=== PATIENT | male | born 1955 ===

== ENCOUNTER 2024-07-30 05:49 | Emergency (ER) | payer MEDICARE, MEDICAID, SELFPAY ==
--- NOTE | 2024-07-30 05:51 | PC.NURSE ---
see paper charting
--- NOTE | 2024-07-30 06:06 | ED.GENADUL1 ---
HPI HPI - General Adult General Stated complaint: G 2 REMOVAL History of Present Illness HPI narrative: 69-year-old male presented for evaluation of his feeding tube. He was sent here by the staff because they thought he had pulled it out partially. He is nonverbal for us and is unable to give any history. The paramedics provided the history. Opioid HPI Opioid Management Most Recent Opioid Data: No Data to Display Review of Systems ROS Narrative Not obtainable, nonverbal Exam Narrative Exam Narrative: Nurses note and vital signs reviewed and patient is not hypoxic. General: The patient appears in no apparent distress. Skin: Warm, dry, no pallor noted. Head: Normocephalic, atraumatic Eye: Normal conjunctiva, no drainage Ears, Nose, Mouth, and Throat: oral mucosa is moist. Nares patent. Cardiovascular: Regular Rate and Rhythm Respiratory: Patient is in no distress, no accessory muscle use, lungs are clear to auscultation, no wheezing, rales or rhonchi Back: non-tender, no CVA tenderness bilaterally to percussion. GI: There is a feeding tube in place. It is not pulled out. There is no surrounding erythema and no bleeding. Removable retainer had been pulled along the length of the tube distally. I have replaced it and the tube is functioning normally. Musculoskeletal: No joint swelling Neurological: Awake. Nonverbal Psychiatric: Cannot be assessed Medical Decision Making MDM Narrative Medical decision making narrative: The removable retainer has been replaced in its appropriate position. The tube was flushed and aspirated with normal functioning. He is able to be released back to ECF. Differential Diagnosis Differential Diagnosis: Feeding tube problem Discharge Plan Discharge Clinical Impression: Complication of feeding tube Patient Disposition: Home, Self-Care Condition: Good Mode of Transportation: EMS Print Language: Tamazight Instructions: How to Use and Care for Your PEG Tube (DC) Discharge Date/Time: 07/30/24 05:51
== END 2024-07-30 05:51 | disposition home or self-care (01) ==
LOC: ER 05:56
PROVIDERS: Emergency Provider Emergency Medicine; PCP Family Medicine
DX: Z43.1 Encounter for attention to gastrostomy (principal)
CPT/HCPCS: 99281

== ENCOUNTER 2024-12-19 10:14 | Outpatient (OUT) | payer MEDICARE, MEDICAID, SELFPAY ==
--- NOTE | 2024-12-19 | XR_ITS ---
The [address] [address] Patient Name: NAPOLEON MEDELLIN MRN: [id number] date: 1955 Sex: M Assigned Patient Location: Current Patient Location: Accession/Order Number: [id number] Exam Date: 12/19/2024 13:54 Report Date: 12/19/2024 13:57 At the request of: MICHEAL LEIVA MD Procedure: XR humerus LT LEFT HUMERUS - 2 views CLINICAL HISTORY: LEFT HUMERUS PAIN. No reported injury. COMPARISON: None AP and lateral views of the left humerus were obtained with patient in wheelchair, limiting evaluation. The elbow is suboptimally seen on the available views. No definite acute fracture is noted in the field of view. No dislocation is seen at the shoulder. There is mild degenerative change at the acromioclavicular joint and greater tuberosity. There are no significant soft tissue abnormalities. XR/XR humerus LT IMPRESSION: LIMITED EVALUATION HOWEVER THOSE PARTS OF THE UPPER ARM THAT ARE INCLUDED ON THE IMAGES SHOW NO ACUTE FINDINGS. MILD DEGENERATIVE CHANGES AT THE SHOULDER. Impression dictated by: Lucita Granda M.D.12/19/2024 1:57 PM Dictation Location: [place] [address] Electronically authenticated by: [id number] Y Date: 12/19/2024 13:57
--- OUTSIDE RECORDS SUMMARY | 2024-12-19 10:30 | XMS_ITS | CCD ---
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 Name Role Phone NO PCP, NO PCP Primary Care Unavailable GOMBASH WIL, XU Attending Unavailab le GOMBASH WIL, XU Attending Unavailab le GOMBASH WIL, XU Referring Unavailab le GARCIA, RAINA J Primary Care Unavailable GOMBASH WIL, XU Attending Unavailab le GOMBASH WIL, XU Referring Unavailab le GARCIA, RAINA J Primary Care Unavailable GOMBASH WIL, XU Attending Unavailab le GOMBASH WIL, XU Referring Unavailab le GARCIA, RAINA J Primary Care Unavailable GOMBASH WIL, XU Attending Unavailab le GOMBASH WLI, XU Referring Unavailab le GARCIA, RAINA J Primary Care Unavailable PROVIDER, UNKNOWN Attending Unavailable PROVIDER, UNKNOWN Admitting Unavailable AHMED, IRFAN Primary Care Unavailable AHMED, IRFAN Referring Unavailable AHMED, IRFAN Referring Unavailable AHMED, IRFAN Primary Care Unavailable Unavailable Primary Care Provider UnavailEliot Hope Attending Unavailable Eliot Murillo Admitting Unavailable NON STAFF Primary Care Unavailable JUMAA, MOUHAMMAD A Admitting Unavailable JUMAA, MOUHAMMAD A Attending Unavailable GOMBASH, XU WIL Referring Unavailab le GARCIA, RAINA J Primary Care Unavailable RON BURKS Consulting Unavailable ALBERTO DIAZ Consulting Unavailable MAGNOLIA CHANG Consulting Unavailable JACQUES HARRIS Consulting Unavailable WILLIAM NAVARRO Consulting Unavailable GRETCHEN ORTEGA Consulting Unavailable MADELINE VELASQUEZ Consulting Unavailable JAYLEN, ART Referring Unavailable GARCIA, RAINA J Primary Care Unavailable JAYLEN ART Referring Unavailable GARCIA, RAINA J Primary Care Unavailable EVERETT JOHNSON Attending UnavailRAINA Aviles Primary Care Unavailable RAINA GARCIA Referring Unavailable RAINA GARCIA Primary Care Unavailable JEANNETTE CHUN Referring Unavailable Unavailable Primary Care Provider Unavailemmett Bermudez APRNSayra DODD Primary Care Provider Jose HENDERSONRaina DODD Primary Care [facility] er JANELL TRIMBLE Attending Unavailable RAINA GARCIA Referring Unavailable JANELL TRIMBLE Attending Unavailable Medications Current Medications Medication Drug Class(es) Dates Sig (Normalized) Sig (Original) acetaminophen 500 mg oral tablet (7 sources) take 1 tablet by mouth every eight hours as needed for pain acetaminophen (TYLENOL EXTRA STRENGTH) 500 mg tablet Take 1 tablet (500 mg total) by mouth every 8 (eight) hours as needed for pain. Active acetaminophen 325 mg / oxyCODONE hydrochloride 5 mg oral tablet (6 sources) Opioid Agonist Start: 09-20-2024 End: 10-20-2024 take 1 tablet by mouth every six hours for pain and pain oxyCODONE-acetamino phen (Percocet) 5-325 MG tablet Indications: Pain Take 1 tablet by mouth every 6 (six) hours 120 tablet 09/20/2024 10/20/2024 Active Start: 08-14-2024 End: 09-13-2024 take 1 tablet by mouth every six hours oxyCODONE-acetaminophen (PERCOCET) 5-325 mg per tablet Take 1 tablet by mouth every 6 (six) hours. Max Daily Amount: 4 tablets 08/14/2024 09/13/2024 albuterol 0.833 mg/ml / ipratropium bromide 0.167 mg/ml inhalation solution (9 sources) Anticholinergic, beta2-Adrenergic Agonist Start: 07-01-2024 take 3 mL by inhalation every six hours as needed for wheezing ipratropium-albuteroL (DUONEB) 0.5 mg-3 mg(2.5 mg base)/3 mL nebulizer Indications: 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 (CMS-HCC) Inhale 3 mL by nebulization every 6 (six) hours as needed for wheezing. 07/01/2024 Active amLODIPine 5 mg oral tablet (9 sources) Dihydropyridine Calcium Channel Varsha Start: 07-02-2024 take 1 tablet by mouth in the morning amLODIPine (NORVASC) 5 mg tablet Take 1 tablet (5 mg total) by mouth in the morning. 07/02/2024 Active aspirin 81 mg delayed release oral tablet (5 sources) Platelet Aggregation Inhibitor, Nonsteroidal Anti-inflammatory Drug Start: 09-07-2024 End: 09-07-2025 take 1 tablet by mouth in the morning aspirin 81 mg Take 1 tablet (81 mg total) by mouth in the morning. 09/07/2024 09/07/2025 Active atorvastatin 40 mg oral tablet (9 sources) HMG-CoA Reductase Inhibitor Start: 07-01-2024 atorvastatin (LIPITOR) 40 mg tablet Administer 1 tablet (40 mg total) per tube nightly. 07/01/2024 Active bacitracin 0.5 unt/mg topical ointment (9 sources) Start: 07-01-2024 bacitracin 500 unit/gram packet Apply 1 Application topically in the morning and 1 Application before bedtime. 07/01/2024 Active busPIRone hydrochloride 5 mg oral tablet (7 sources) take 1 tablet by mouth three times daily busPIRone (BUSPAR) 5 mg tablet Take 1 tablet (5 mg total) by mouth 3 (three) times a day. Active cholecalciferol 0.125 mg oral capsule (9 sources) Vitamin D Start: 07-02-2024 cholecalciferol, vitamin D3, (VITAMIN D3) 5,000 units capsule Administer 1 capsule (5,000 Units total) per tube in the morning. 07/02/2024 Active famotidine 20 mg oral tablet (9 sources) Histamine-2 Receptor Antagonist Start: 07-01-2024 famotidine (PEPCID) 20 mg tablet Administer 1 tablet (20 mg total) per tube in the morning and 1 tablet (20 mg total) before bedtime. 07/01/2024 Active glucagon (rdna) 1 mg injection (9 sources) Antihypoglycemic Agent Start: 07-01-2024 glucagon HCL 1 mg/mL injection Inject 1 mL (1 mg total) into the appropriate muscle as needed for low blood sugar (blood glucose less than 70 mg/dL and unconscious or NPO without IV access.). 07/01/2024 Active 3 ml insulin lispro 100 unt/ml pen injector (18 sources) Insulin Analog Start: 07-01-2024 inject 23 [IU] by subcutaneous injection every four hours insulin lispro (HumaLOG) 100 unit/mL insulin pen Inject 23 Units under the skin every 4 (four) hours. 07/01/2024 Active levETIRAcetam 100 mg/ml oral solution (1 source) take 10 mg by mouth in the morning levETIRAcetam (KEPPRA) 100 mg/mL solution Take 10 mg/kg by mouth in the morning and 10 mg/kg before bedtime. Active LORazepam 0.5 mg oral tablet (7 sources) Benzodiazepine take 1 tablet by mouth every eight hours as needed for anxiety LORazepam (ATIVAN) 0.5 mg tablet Take 1 tablet (0.5 mg total) by mouth every 8 (eight) hours as needed for anxiety. Active losartan potassium 100 mg oral tablet (15 sources) Angiotensin 2 Receptor Varsha Start: 07-02-2024 losartan (COZAAR) 100 mg tablet Administer 1 tablet (100 mg total) per tube in the morning. 07/02/2024 Active take 1 tablet by mouth in the mo rning losartan (COZAAR) 50 mg tablet Take 1 tablet (50 mg total) by mouth in the morning. Suspended melatonin 5 mg oral tablet (9 sources) Start: 07-01-2024 take 1 tablet by mouth once daily melatonin (CIRCADIN) 5 mg tablet Take 1 tablet (5 mg total) by mouth nightly. 07/01/2024 Active metoprolol tartrate 25 mg oral tablet (15 sources) beta-Adrenergic Varsha Start: 07-01-2024 metoprolol tartrate (LOPRESSOR) 25 mg tablet Administer 1 tablet (25 mg total) per tube in the morning and 1 tablet (25 mg total) before bedtime. 07/01/2024 Active take 1 tablet by nithin th every twenty-four hours in the morning metoprolol succinate XL (TOPROL-XL) 50 m g 24 hr tablet Take 1 tablet (50 mg total) by mouth in the morning. Suspended take 1 tablet by mouth once mehdi y metoprolol succinate XL (TOPROL-XL) 50 mg 24 hr tablet Take 50 mg by mouth daily. Active PARoxetine hydrochloride 10 mg oral tablet (6 sources) Serotonin Reuptake Inhibitor Start: 08-20-2024 PARoxetine (PAXIL) 10 mg tablet 08/20/2024 Active polyethylene glycol 3350 47209 mg powder for oral solution (9 sources) Osmotic Laxative Start: 07-02-2024 polyethylene glycol (GLYCOLAX) 17 gram packet Administer 17 g per tube in the morning. 07/02/2024 Active QUEtiapine 25 mg oral tablet (7 sources) Atypical Antipsychotic take 1 tablet by mouth in the morning, then take 1 tablet by mouth at bedtime QUEtiapine (SEROquel) 25 mg tablet Take 1 tablet (25 mg total) by mouth in the morning and 1 tablet (25 mg total) before bedtime. Active risperiDONE 1 mg oral tablet (6 sources) Atypical Antipsychotic Start: 08-22-2024 risperiDONE (RisperDAL) 1 mg tablet 08/22/2024 Active sennosides, long term 1.76 mg/ml oral solution (9 sources) Start: 07-01-2024 sennosides 8.8 mg/5 mL syrup Administer 5 mL (8.8 mg total) per tube nightly. 07/01/2024 Active traZODone hydrochloride 50 mg oral tablet (7 sources) Serotonin Reuptake Inhibitor take 1 tablet by mouth once daily traZODone (DESYREL) 50 mg tablet Take 1 tablet (50 mg total) by mouth nightly. Active valproic acid 50 mg/ml oral solution (6 sources) Mood Stabilizer, Anti-epileptic Agent Start: 08-29-2024 valproate (DEPAKENE) 250 mg/5 mL syrup 08/29/2024 Active Completed/Discontinued Medications Medication Drug Class(es) Dates Sig (Normalized) Sig (Original) metFORMIN hydrochloride 500 mg oral tablet (6 sources) Biguanide take 1 tablet by nithin th in the morning, then take 1 tablet by mouth at bedtime metFORMIN (GLUCOPHAGE) 500 mg tablet Take 1 tablet (500 mg total) by mouth in the morning and 1 tablet (500 mg total) before bedtime. Suspended Problems Active Problems Problem Classification Problem Date Documented Date Episodic/Chronic Acute cerebrovascular disease (20 sources) Cerebral infarction, unspecified; Translations: [Cerebrovascular accident] Onset: 06-06-2024 08-11-2024 Chronic Acute myocardial infarction (10 sources) Myocardial infarction; Translations: [Acute myocardial infarction, unspecified] 06-28-2024 Chronic Attention-deficit, conduct, and disruptive behavior disorders (2 sources) Other symptoms and signs involving appearance and behavior; Translations: [Other symptoms and signs involving appearance and behavior] Onset: 07-19-2024 Episodic Diabetes mellitus without complication (1 source) Type 2 diabetes mellitus without complications; Translations: [Type 2 diabetes mellitus without complications] Onset: 06-06-2024 Chronic Epilepsy; convulsions (2 sources) Unspecified convulsions; Translations: [Neurological finding] Onset: 11-30-2024 11-30-2024 Episodic Late effects of cerebrovascular disease (7 sources) 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; Translations: [Other sequelae following unspecified cerebrovascular disease] Onset: 11-30-2024 12-14-2024 Chronic Malaise and fatigue (1 source) Weakness; Translations: [Weakness] Onset: 11-30-2024 Episodic Nonspecific chest pain (1 source) Chest pain, unspecified; Translations: [Chest pain, unspecified] Onset: 06-06-2024 Episodic Other aftercare (2 sources) Other assisted (current) drug therapy; Translations: [Other assisted (current) drug therapy] Onset: 07-19-2024 Episodic Other and ill-defined cerebrovascular disease (1 source) Other cerebrovascular vasospasm and vasoconstriction; Translations: [Other cerebrovascular vasospasm and vasoconstriction] Onset: 06-06-2024 Chronic Other and ill-defined cerebrovascular disease (2 sources) Cerebrovascular disease; Translations: [Other cerebrovascular vasospasm and vasoconstriction] 09-07-2024 Chronic Other circulatory disease (1 source) History of cerebrovascular accident; Translations: [Personal history of transient ischemic attack (TIA), and cerebral infarction without residual deficits] 09-07-2024 Episodic Other connective tissue disease (1 source) Neurological finding 12-14-2024 Episodic Other nervous system disorders (1 source) Numbness Onset: 06-06-2024 Episodic Other non-epithelial cancer of skin (1 source) Basal cell carcinoma of skin of lip; Translations: [Basal cell carcinoma of skin of lip] Onset: 09-28-2024 Episodic Residual codes; unclassified (2 sources) Altered mental status, unspecified; Translations: [Altered mental status, unspecified] Onset: 07-19-2024 Episodic Residual codes; unclassified (2 sources) Pain; Translations: [Pain, unspecified] 08-14-2024 Episodic Unclassified (1 source) EMS Onset: 06-06-2024 Unclassified (1 source) CVA Onset: 06-06-2024 Past or Other Problems Problem Classification Problem Date Documented Da te Episodic/Chronic Mood disorders (6 sources) Mood disorders Onset: 09-07-2024 Resolved: 11-30-2024 09-07-2024 Other gastrointestinal disorders (1 source) Dysphagia, unspecified; Translations: [Dysphagia, unspecified] Onset: 06-14-2024 Episodic Other gastrointestinal disorders (12 sources) Dysphagia; Translations: [Dysphagia, unspecified] Onset: 06-06-2024 06-14-2024 Episodic Other skin disorders (1 source) Lesion of skin of nose; Translations: [Disorder of the skin and subcutaneous tissue, unspecified] 07-03-2024 Episodic Phlebitis; thrombophlebitis and thromboembolism (15 sources) Acute embolism and thrombosis of unspecified deep veins of distal lower extremity, bilateral; Translations: [Acute deep vein thrombosis of lower limb] Onset: 06-23-2024 06-23-2024 Episodic Unclassified (1 source) 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 ([facility]) 09-07-2024 Results Test Name Value Interpretation Reference Range Facility Glucose Poct Glucometerson 1 11-29-2023 Commemt1 Glu2: Cleaned Meter Normal [facility] Comment on above: Result Comment: PERF ORMED BY: [facility] [address] [place] [address] PATHOLOGIST RECYCLING TECHNICIAN NISA FUNK M.D. Performed By: #### G LULS #### Point of Care testing , Glucose [Mass/Vol] 224 mg/dL Normal [facility] Comment on above: Result Comment: [facility] Glucose Reference Range is dependent on time and content of last meal. Glucose of more than 200 mg/dL in a nonstressed, ambulatory subject supports the diagnosis of Diabetes Mellitus. Performed By: #### G LULS #### Point of Care testing , Lipid Profileon 07-20-2024 Cholesterol [Mass/Vol] 154 mg/dL Normal 0-199 [facility] Comment on above: Result Comment: Cholesterol Guidelines: <200 Desirable 200-240 Borderline >240 Undesirable Performed By: #### L IPR #### [address] [address] Junior Network Administrator: Adonis Trujillo MD Cholesterol in HDL [Mass/Vol] 44 mg/dL Normal >40 [facility] Comment on above: Result Comment: HDL Guidelines: <40 Undesirable 40-59 Borderline >59 Desirable Performed By: #### L IPR #### [facility] [address] [place] [id number] Junior Network Administrator: Adonis Trujillo MD Cholesterol in LDL [Mass/Vol] 86 mg/dL Normal 0-100 [facility] Comment on above: Result Comment: LDL Guidelines: <100 Desirable 100-129 Near to/above Desirable 130-159 Borderline >159 Undesirable Direct (measured) LDL and calculated LDL are not interchangeable tests. Performed By: #### L IPR #### [address] [address] Junior Network Administrator: Adonis Trujillo MD Cholesterol in VLDL [Mass/Vol] 25 mg/dL Normal [facility] Comment on above: Performed By: #### L IPR #### [address] [address] Junior Network Administrator: Adonis Trujillo MD Cholesterol.total/C holesterol in HDL [Mass ratio] 4.0 {ratio} Normal [facility] Comment on above: Performed By: #### L IPR #### [facility] [address] [place] [address] Junior Network Administrator: Adonis Trujillo MD Triglyceride [Mass/Vol] 125 mg/dL Normal <150 [facility] Comment on above: Result Comment: Triglyceride Guidelines: <150 Desirable 150-199 Borderline 200-499 High >499 Very high Based on AHA Guidelines for fasting triglyceride, July 2012. Performed By: #### L IPR #### [address] [address] Junior Network Administrator: Adonis Trujillo MD Basic Metabolic Profon 07-19 Anion gap [Moles/Vol] 11 mmol/L Normal 9-16 [facility] Comment on above: Performed By: #### C BC, BMP #### [facility] [address] [place] [address] Junior Network Administrator: Adonis Loo MD BUN/CRE Ratio 29 High 9-20 [facility] Comment on above: Performed By: #### C BC, BMP #### [facility] [address] [place], [place] [phone] Junior Network Administrator: Adonis Loo MD Calcium [Mass/Vol] 9.8 mg/dL Normal 8.6-10.4 [facility] Comment on above: Performed By: #### C BC, BMP #### [facility] [address] [place], [place] [id number] Junior Network Administrator: Adonis Loo MD Chloride [Moles/Vol] 100 mmol/L Normal 98-107 [facility] Comment on above: Performed By: #### C BC, BMP #### [facility] [address] [place], [place] [id number] Junior Network Administrator: Adonis Loo MD CO2 [Moles/Vol] 27 mmol/L Normal 20-31 [facility] Comment on above: Performed By: #### C BC, BMP #### [facility] [address] [place] [address] Junior Network Administrator: Adonis Loo MD Creatinine [Mass/Vol] 0.7 mg/dL Normal 0.70-1.20 [facility] Comment on above: Performed By: #### C BC, BMP #### [facility] [address] [place] [address] Junior Network Administrator: Adonis Loo MD GFR/1.73 sq M.predicted among non-blacks MDRD (S/P/Bld) [Vol rate/Area] mL/min/{1.73_m2} Normal >60 [facility] Comment on above: Result Comment: These results are not intended for use in patients <18 years of age. eGFR results are calculated without a race factor using the 2020 CKD-EPI equation. Careful clinical correlation is recommended, particularly when comparing to results calculated using previous equations. The CKD-EPI equation is less accurate in patients with extremes of muscle mass, extra-renal metabolism of creatine, excessive creatine ingestion, or following therapy that affects renal tubular secretion. Performed By: #### C BC, BMP #### [facility] [address] [place], [place] [phone] Junior Network Administrator: Adonis Loo MD Glucose [Mass/Vol] 264 mg/dL High 74-99 [facility] Comment on above: Performed By: #### C CORIE, BMP #### [facility] [address] [place], [place] [id number] Junior Network Administrator: Adonis Loo MD Potassium [Moles/Vol] 4.4 mmol/L Normal 3.7-5.3 [facility] Comment on above: Performed By: #### C BC, BMP #### [address] [place] [address] Junior Network Administrator: Adonis Loo MD Sodium [Moles/Vol] 138 mmol/L Normal 136-145 [facility] Comment on above: Performed By: #### C BC, BMP #### [address] [place] [address] Junior Network Administrator: Adonis Loo MD Urea nitrogen [Mass/Vol] 20 mg/dL Normal 8-23 [facility] Comment on above: Performed By: #### C BC, BMP #### [facility] [address] [place], [place] [phone] Junior Network Administrator: Adonis Loo MD CBCon 07-19-2024 Erythrocyte distribution width (RBC) [Ratio] 14.6 % High 11.8-14.4 [facility] Comment on above: Performed By: #### C BC, BMP #### [address] [place], [place] [phone] Junior Network Administrator: Adonis Loo MD Hematocrit (Bld) [Volume fraction] 40.9 % Normal 40.7-50.3 [facility] Comment on above: Performed By: #### C BC, BMP #### [address] [place], [place] [phone] Junior Network Administrator: Adonis Loo MD Hemoglobin (Bld) [Mass/Vol] 13.8 g/dL Normal 13.0-17.0 [facility] Comment on above: Performed By: #### C BC, BMP #### [address] [place] [address] Junior Network Administrator: Adonis Loo MD MCH (RBC) [Entitic mass] 31.4 pg Normal 25.2-33.5 [facility] Comment on above: Performed By: #### C BC, BMP #### [address] [place] [address] Junior Network Administrator: Adonis Loo MD MCHC (RBC) [Mass/Vol] 33.7 g/dL Normal 28.4-34.8 [facility] Comment on above: Performed By: #### C BC, BMP #### [address] [place] [address] Junior Network Administrator: Adonis Loo MD MCV (RBC) [Entitic vol] 93.2 fL Normal 82.6-102.9 [facility] Comment on above: Performed By: #### C BC, BMP #### [address] [place] [address] Junior Network Administrator: Adonis Loo MD NRBC Automated 0.0 per 100 WBC Normal 0.0 [facility] Comment on above: Performed By: #### C BC, BMP #### [address] [place] [address] Junior Network Administrator: Adonis Loo MD Platelet mean volume (Bld) [Entitic vol] 9.3 fL Normal 8.1-13.5 [facility] Comment on above: Performed By: #### C BC, BMP #### [facility] [address] [place], [place] [id number] Junior Network Administrator: Adonis Loo MD Platelets (Bld) [#/Vol] 212 10*3/uL Normal 138-453 [facility] Comment on above: Performed By: #### C BC, BMP #### [facility] [address] [place], [place] [id number] Junior Network Administrator: Adonis Loo MD RBC (Bld) [#/Vol] 4.39 10*6/uL Normal 4.21-5.77 [facility] Comment on above: Performed By: #### Ivon FONTENOT, BMP #### [facility] [address] [place], [place] [phone] Junior Network Administrator: Adonis Loo MD WBC (Bld) [#/Vol] 8.0 10*3/uL Normal 3.5-11.3 [facility] Comment on above: Performed By: #### C CORIE, BMP #### [facility] [address] [place], [place] [id number] Junior Network Administrator: Adonis Loo MD BASIC METABOLIC PANLon 07-01 Anion gap [Moles/Vol] 8 mmol/L Normal 5-15 [facility] Comment on above: Performed By: #### C BCA, BMP ####[facility] [place] [facility] ([id number])[address] [address] Calcium [Mass/Vol] 9.2 mg/dL Normal 8.5-10.5 [facility] Comment on above: Performed By: #### C BCA, BMP ####[facility] [place] [facility] ([id number])[address], [place] [address] Chloride [Moles/Vol] 103 mmol/L Normal 98-109 [facility] Comment on above: Performed By: #### C BCA, BMP ####[facility] ([id number])[address] [address], [place] [address] CO2 [Moles/Vol] 26 mmol/L Normal 22-32 [facility] Comment on above: Performed By: #### C BCA, BMP ####[facility] ([id number] [address] [place] [address] Creatinine [Mass/Vol] 0.57 mg/dL Low 0.60-1.30 [facility] Comment on above: Result Comment: METH OD TRACEABLE TO IDMS STANDARD Performed By: #### C ENZO, BMP ####[facility] ([id number])[address] [address] [place] [address] eGFR (CKD-EPI) NON-RACE DEPENDENT >90 Normal >59 [facility] Comment on above: Result Comment: Repo rted eGFR is based on theCKD-EPI 2020 equation that doesnot use a race coefficient. Performed By: #### C BCA, BMP ####[facility] [place] [facility] ([id number])[address] [address] [place] [address], [place] [address] Glucose [Mass/Vol] 100 mg/dL High 65-99 [facility] Comment on above: Performed By: #### C BCA, BMP ####[facility] [place] [facility] ([id number])[address] [address], [place] [address] Potassium [Moles/Vol] 4.1 mmol/L Normal 3.5-5.0 [facility] Comment on above: Performed By: #### C BCA, BMP ####[facility] [place] [facility] ([id number])[address] [address] [place] [address] Sodium [Moles/Vol] 137 mmol/L Normal 134-146 [facility] Comment on above: Performed By: #### C BCA, BMP ####[facility] [place] [facility] ([id number])[address] [address] Urea nitrogen [Mass/Vol] 34 mg/dL High 5-27 [facility] Comment on above: Performed By: #### C ENZO, BMP ####[facility] [place] [facility] ([id number])[address] [address] CBC AND AUTO DIFFon 07-01-20 ABSOLUTE BASOPHIL 0.0 X10E9/L Normal 0.0-0.2 [facility] Comment on above: Performed By: #### C ENZO, BMP ####[facility] [place] [facility] ([id number])[address] [address] ABSOLUTE NEUTROPHIL 7.4 X10E9/L High 1.5-6.6 [facility] Comment on above: Performed By: #### C ENZO, BMP ####[facility] [place] [facility] ([id number])0 [address] [address] Basophils/100 WBC (Bld) 0.4 % Normal [facility] Comment on above: Performed By: #### C ENZO, BMP ####[facility] ([id number])[address] [address] Eosinophils (Bld) [#/Vol] 0.2 10*3/uL Normal 0.0-0.4 [facility] Comment on above: Performed By: #### C ENZO, BMP ####[facility] ([id number])[address] [address] Eosinophils/100 WBC (Bld) 1.6 % Normal [facility] Comment on above: Performed By: #### C ENZO, BMP ####[facility] ([id number])[address] [address] Erythrocyte distribution width (RBC) [Ratio] 16.0 % High 11.5-15.0 [facility] Comment on above: Performed By: #### C BCA, BMP ####[facility] ([id number])[address], [place] [address] Hematocrit (Bld) [Volume fraction] 40.4 % Normal 39-49 [facility] Comment on above: Performed By: #### C BCA, BMP ####[facility] ([id number])[address] [address], [place] [address] Hemoglobin (Bld) [Mass/Vol] 13.7 g/dL Normal 13.0-17.0 [facility] Comment on above: Performed By: #### C BCA, BMP ####[facility] ([id number])[address] [address] [place] [address] Lymphocytes (Bld) [#/Vol] 1.9 10*3/uL Normal 1.0-3.5 [facility] Comment on above: Performed By: #### C BCA, BMP ####[facility] ([id number])[address] [address] [place] [address] Lymphocytes/100 WBC (Bld) 18.7 % Normal [facility] Comment on above: Performed By: #### C BCA, BMP ####[facility] ([id number])[address] [address], [place] [address] MCH (RBC) [Entitic mass] 31.4 pg Normal 27-34 [facility] Comment on above: Performed By: #### C BCA, BMP ####[facility] ([id number])[address] [address] [place] [address] MCHC (RBC) [Mass/Vol] 33.9 g/dL Normal 32-36 [facility] Comment on above: Performed By: #### C BCA, BMP ####[facility] ([id number])[address] [address] MCV (RBC) [Entitic vol] 93 fL Normal 80-100 [facility] Comment on above: Performed By: #### C BCA, BMP ####[facility] ([id number])[address] [address] Monocytes (Bld) [#/Vol] 0.6 10*3/uL Normal 0-0.9 [facility] Comment on above: Performed By: #### C ENZO, BMP ####[facility] ([id number])[address], [place] [address] Monocytes/100 WBC (Bld) 6.0 % Normal [facility] Comment on above: Performed By: #### C ENZO, BMP ####[facility] ([id number])[address], [place] [address] Neutrophils/100 WBC (Bld) 73.3 % Normal [facility] Comment on above: Performed By: #### C ENZO, BMP ####[facility] ([id number])[address], [place] [address] Platelet mean volume (Bld) [Entitic vol] 7.6 fL Normal 7-12 [facility] Comment on above: Performed By: #### C ENZO, BMP ####[facility] ([id number])[address] [address], [place] [address] Platelets (Bld) [#/Vol] 192 10*3/uL Normal 150-450 [facility] Comment on above: Performed By: #### C ENZO, BMP ####[facility] ([id number])[address] [address] RBC COUNT 4.36 X10E12/L Normal 4.10-5.70 [facility] Comment on above: Performed By: #### C BCA, BMP ####[facility] ([id number])[address], [place] [address] WBC (Bld) [#/Vol] 10.1 10*3/uL Normal 4.0-11.0 [facility] Comment on above: Performed By: #### C BCA, BMP ####[facility] ([id number])[address], [place] [address] Glucose Glucometer (BldC) [M ass/Vol]on 07-01-2024 Glucose [Mass/Vol] 143 mg/dL High 65-99 [facility] Glucose [Mass/Vol] 163 mg/dL High 65-99 [facility] Glucose [Mass/Vol] 105 mg/dL High 65-99 [facility] Glucose [Mass/Vol] 164 mg/dL High 65-99 [facility] BASIC METABOLIC PANLon 06-30 Anion gap [Moles/Vol] 10 mmol/L Normal 5-15 [facility] Comment on above: Performed By: #### C BCA, BMP ####[facility] ([id number])[address], [place] [address] Calcium [Mass/Vol] 9.4 mg/dL Normal 8.5-10.5 [facility] Comment on above: Performed By: #### C BCA, BMP ####[facility] ([id number])[address], [place] [address] Chloride [Moles/Vol] 103 mmol/L Normal 98-109 [facility] Comment on above: Performed By: #### C BCA, BMP ####[facility] ([id number])[address], [place] [address] CO2 [Moles/Vol] 25 mmol/L Normal 22-32 [facility] Comment on above: Performed By: #### C BCA, BMP ####[facility] ([id number])[address] [address] [place] [address] Creatinine [Mass/Vol] 0.59 mg/dL Low 0.60-1.30 [facility] Comment on above: Result Comment: METH OD TRACEABLE TO IDMS STANDARD Performed By: #### C ENZO, BMP ####[facility] ([id number])[address] [address], [place] [address] eGFR (CKD-EPI) NON-RACE DEPENDENT >90 Normal >59 [facility] Comment on above: Result Comment: Repo rted eGFR is based on theCKD-EPI 2020 equation that doesnot use a race coefficient. Performed By: #### C ENZO, BMP ####[facility] ([id number])[address] [address] [place] [address] Glucose [Mass/Vol] 126 mg/dL High 65-99 [facility] Comment on above: Performed By: #### C ENZO, BMP ####[facility] ([id number])[address] [address] [place] [address] Potassium [Moles/Vol] 4.0 mmol/L Normal 3.5-5.0 [facility] Comment on above: Performed By: #### C ENZO, BMP ####[facility] ([id number])[address] [address] Sodium [Moles/Vol] 138 mmol/L Normal 134-146 [facility] Comment on above: Performed By: #### C BCA, BMP ####[facility] ([id number])[address] [address] Urea nitrogen [Mass/Vol] 34 mg/dL High 5-27 [facility] Comment on above: Performed By: #### C BCA, BMP ####[facility] ([id number])[address] [address] CBC AND AUTO DIFFon 09-19-20 24 ABSOLUTE BASOPHIL 0.1 X10E9/L Normal 0.0-0.2 [facility] Comment on above: Performed By: #### C ENZO, BMP ####[facility] ([id number])[address], [place] [address] ABSOLUTE NEUTROPHIL 8.9 X10E9/L High 1.5-6.6 [facility] Comment on above: Performed By: #### C BCA, BMP ####[facility] ([id number])[address] [address], [place] [address] Basophils/100 WBC (Bld) 0.5 % Normal [facility] Comment on above: Performed By: #### C ENZO, BMP ####[facility] ([id number])[address] [address], [place] [address] Eosinophils (Bld) [#/Vol] 0.1 10*3/uL Normal 0.0-0.4 [facility] Comment on above: Performed By: #### C BCA, BMP ####[facility] ([id number])[address] [address] Eosinophils/100 WBC (Bld) 1.1 % Normal [facility] Comment on above: Performed By: #### C BCA, BMP ####[facility] ([id number])[address] [address], [place] [address] Erythrocyte distribution width (RBC) [Ratio] 16.0 % High 11.5-15.0 [facility] Comment on above: Performed By: #### C BCA, BMP ####[facility] ([id number])[address] [address] Hematocrit (Bld) [Volume fraction] 42.2 % Normal 39-49 [facility] Comment on above: Performed By: #### C BCA, BMP ####[facility] ([id number])[address] [address] Hemoglobin (Bld) [Mass/Vol] 14.0 g/dL Normal 13.0-17.0 [facility] Comment on above: Performed By: #### C BCA, BMP ####[facility] ([id number])[address] [address] Lymphocytes (Bld) [#/Vol] 2.1 10*3/uL Normal 1.0-3.5 [facility] Comment on above: Performed By: #### C BCA, BMP ####[facility] ([id number])[address] [address] Lymphocytes/100 WBC (Bld) 17.6 % Normal [facility] Comment on above: Performed By: #### C BCA, BMP ####[facility] ([id number])[address] [address] MCH (RBC) [Entitic mass] 30.8 pg Normal 27-34 [facility] Comment on above: Performed By: #### C BCA, BMP ####[facility] ([id number])[address] [address] MCHC (RBC) [Mass/Vol] 33.2 g/dL Normal 32-36 [facility] Comment on above: Performed By: #### C BCA, BMP ####[facility] ([id number])[address] [address] MCV (RBC) [Entitic vol] 93 fL Normal 80-100 [facility] Comment on above: Performed By: #### C BCA, BMP ####[facility] ([id number])[address] [address] Monocytes (Bld) [#/Vol] 0.7 10*3/uL Normal 0-0.9 [facility] Comment on above: Performed By: #### C BCA, BMP ####[facility] ([id number])[address], [place] [address] Monocytes/100 WBC (Bld) 6.2 % Normal [facility] Comment on above: Performed By: #### C BCA, BMP ####[facility] ([id number])[address], [place] [address] Neutrophils/100 WBC (Bld) 74.6 % Normal [facility] Comment on above: Performed By: #### C ENZO, BMP ####[facility] ([id number])[address], [place] [address] Platelet mean volume (Bld) [Entitic vol] 7.8 fL Normal 7-12 [facility] Comment on above: Performed By: #### C ENZO, BMP ####[facility] ([id number])[address], [place] [address] Platelets (Bld) [#/Vol] 195 10*3/uL Normal 150-450 [facility] Comment on above: Performed By: #### C ENZO, BMP ####[facility] ([id number])[address], [place] [address] RBC COUNT 4.55 X10E12/L Normal 4.10-5.70 [facility] Comment on above: Performed By: #### C BCA, BMP ####[facility] ([id number])[address], [place] [address] WBC (Bld) [#/Vol] 11.9 10*3/uL High 4.0-11.0 [facility] Comment on above: Performed By: #### C BCA, BMP ####[facility] ([id number])[address], [place] [address] Glucose Glucometer (BldC) [M ass/Vol]on 06-30-2024 Glucose [Mass/Vol] 189 mg/dL High 65-99 [facility] Glucose [Mass/Vol] 89 mg/dL Normal 65-99 [facility] Glucose [Mass/Vol] 110 mg/dL High 65-99 [facility] Glucose [Mass/Vol] 119 mg/dL High 65-99 [facility] Glucose [Mass/Vol] 108 mg/dL High 65-99 [facility] Glucose [Mass/Vol] 134 mg/dL High 65-99 [facility] Magnesium Ionized ISE (Bld) [Moles/Vol]on 06-30-2024 Magnesium [Moles/Vol] 0.55 mmol/L Normal 0.45-0.74 [facility] Comment on above: Result Comment: NEW REFERENCE RANGE Performed By: #### 7 [id number] ####[facility] ([id number])[address] [place] [address] PHOSPHORUSon 06-30-2024 Phosphate [Mass/Vol] 3.9 mg/dL Normal 2.4-4.9 [facility] Comment on above: Performed By: #### 2 777-1 ####[facility] ([id number])[address] [place] [address] XR ABDOMEN AP 1 VWon 024 XR ABDOMEN AP 1 VW Normal [facility] BASIC METABOLIC PANLon 06-29 Anion gap [Moles/Vol] 10 mmol/L Normal 5-15 [facility] Comment on above: Performed By: #### C BCA, BMP ####[facility] ([id number])[address], [place] [address] Calcium [Mass/Vol] 9.3 mg/dL Normal 8.5-10.5 [facility] Comment on above: Performed By: #### C BCA, BMP ####[facility] ([id number])[address], [place] [address] Chloride [Moles/Vol] 104 mmol/L Normal 98-109 [facility] Comment on above: Performed By: #### C ENZO, BMP ####[facility] ([id number])[address], [place] [address] CO2 [Moles/Vol] 25 mmol/L Normal 22-32 [facility] Comment on above: Performed By: #### C ENZO, BMP ####[facility] ([id number])[address] [address] [place] [address] Creatinine [Mass/Vol] 0.56 mg/dL Low 0.60-1.30 [facility] Comment on above: Result Comment: METH OD TRACEABLE TO IDMS STANDARD Performed By: #### C ENZO, BMP ####[facility] ([id number])[address] [address] [place] [address], [place] [address] eGFR (CKD-EPI) NON-RACE DEPENDENT >90 Normal >59 [facility] Comment on above: Result Comment: Repo rted eGFR is based on theCKD-EPI 2020 equation that doesnot use a race coefficient. Performed By: #### C ENZO, BMP ####[facility] ([id number])[address] [address], [place] [address] Glucose [Mass/Vol] 96 mg/dL Normal 65-99 [facility] Comment on above: Performed By: #### C BCA, BMP ####[facility] ([id number])[address] [address], [place] [address] Potassium [Moles/Vol] 4.0 mmol/L Normal 3.5-5.0 [facility] Comment on above: Performed By: #### C BCA, BMP ####[facility] ([id number])[address] [address] [place] [address], [place] [address] Sodium [Moles/Vol] 139 mmol/L Normal 134-146 [facility] Comment on above: Performed By: #### C BCA, BMP ####[facility] ([id number])[address] [place] [address] Urea nitrogen [Mass/Vol] 33 mg/dL High 5-27 [facility] Comment on above: Performed By: #### C BCA, BMP ####[facility] ([id number])[address] [place] [address] CBC AND AUTO DIFFon 06-29-20 24 ABSOLUTE BASOPHIL 0.0 X10E9/L Normal 0.0-0.2 [facility] Comment on above: Performed By: #### C BCA, BMP ####[facility] ([id number])[address] [place] [address] ABSOLUTE NEUTROPHIL 9.5 X10E9/L High 1.5-6.6 [facility] Comment on above: Performed By: #### C BCA, BMP ####[facility] ([id number])[address] [address] [place] [address] Basophils/100 WBC (Bld) 0.3 % Normal [facility] Comment on above: Performed By: #### C BCA, BMP ####[facility] ([id number])[address] [address], [place] [address] Eosinophils (Bld) [#/Vol] 0.1 10*3/uL Normal 0.0-0.4 [facility] Comment on above: Performed By: #### C BCA, BMP ####[facility] ([id number])[address] [address] [place] [address] Eosinophils/100 WBC (Bld) 0.7 % Normal [facility] Comment on above: Performed By: #### C BCA, BMP ####[facility] ([id number])[address], [place] [address] Erythrocyte distribution width (RBC) [Ratio] 15.8 % High 11.5-15.0 [facility] Comment on above: Performed By: #### C ENZO, BMP ####[facility] ([id number])[address], [place] [address] Hematocrit (Bld) [Volume fraction] 40.4 % Normal 39-49 [facility] Comment on above: Performed By: #### C ENZO, BMP ####[facility] ([id number])[address] [address] Hemoglobin (Bld) [Mass/Vol] 13.5 g/dL Normal 13.0-17.0 [facility] Comment on above: Performed By: #### C ENZO, BMP ####[facility] ([id number])[address] [address] Lymphocytes (Bld) [#/Vol] 2.2 10*3/uL Normal 1.0-3.5 [facility] Comment on above: Performed By: #### C ENZO, BMP ####[facility] ([id number])[address] [address] Lymphocytes/100 WBC (Bld) 17.3 % Normal [facility] Comment on above: Performed By: #### Ivon GIRALDO, BMP ####[facility] ([id number])[address] [address] MCH (RBC) [Entitic mass] 30.9 pg Normal 27-34 [facility] Comment on above: Performed By: #### C ENZO, BMP ####[facility] ([id number])[address], [place] [address] MCHC (RBC) [Mass/Vol] 33.4 g/dL Normal 32-36 [facility] Comment on above: Performed By: #### C ENZO, BMP ####[facility] ([id number])[address], [place] [address] MCV (RBC) [Entitic vol] 93 fL Normal 80-100 [facility] Comment on above: Performed By: #### C BCA, BMP ####[facility] ([id number])[address], [place] [address] Monocytes (Bld) [#/Vol] 0.7 10*3/uL Normal 0-0.9 [facility] Comment on above: Performed By: #### C ENZO, BMP ####[facility] ([id number])[address], [place] [address] Monocytes/100 WBC (Bld) 5.9 % Normal [facility] Comment on above: Performed By: #### C ENZO, BMP ####[facility] ([id number])[address], [place] [address] Neutrophils/100 WBC (Bld) 75.8 % Normal [facility] Comment on above: Performed By: #### C ENZO, BMP ####[facility] ([id number])[address], [place] [address] Platelet mean volume (Bld) [Entitic vol] 7.9 fL Normal 7-12 [facility] Comment on above: Performed By: #### C BCA, BMP ####[facility] ([id number])[address], [place] [address] Platelets (Bld) [#/Vol] 200 10*3/uL Normal 150-450 [facility] Comment on above: Performed By: #### C BCA, BMP ####[facility] ([id number])[address], [place] [address] RBC COUNT 4.37 X10E12/L Normal 4.10-5.70 [facility] Comment on above: Performed By: #### C ENZO, BMP ####[facility] ([id number])[address] [place] [address] WBC (Bld) [#/Vol] 12.5 10*3/uL High 4.0-11.0 [facility] Comment on above: Performed By: #### C ENZO, BMP ####[facility] ([id number])[address] [place] [address] Glucose Glucometer (BldC) [M ass/Vol]on 06-29-2024 Glucose [Mass/Vol] 123 mg/dL High 65-99 [facility] Glucose [Mass/Vol] 119 mg/dL High 65-99 [facility] Glucose [Mass/Vol] 131 mg/dL High 65-99 [facility] Glucose [Mass/Vol] 155 mg/dL High 65-99 [facility] Glucose [Mass/Vol] 190 mg/dL High 65-99 [facility] Glucose [Mass/Vol] 116 mg/dL High 65-99 [facility] Glucose [Mass/Vol] 112 mg/dL High 65-99 [facility] Glucose [Mass/Vol] 144 mg/dL High 65-99 [facility] Glucose [Mass/Vol] 137 mg/dL High 65-99 [facility] URINALYSISon 06-29-2024 Bilirubin Ql (U) Negative Normal NEG [facility] Comment on above: Performed By: #### U A ####[facility] ([id number])[address] [place] [address] BLOOD/HGB Negative Normal NEG [facility] Comment on above: Performed By: #### U A ####[facility] ([id number])[address], [place] [address] Color (U) YELLOW Normal YELLOW [facility] Comment on above: Performed By: #### U A ####[facility] ([id number])[address] [address] Glucose Ql (U) 70 mg/dL Abnormal NEG [facility] Comment on above: Performed By: #### U A ####[facility] ([id number])[address] [address], [place] [address] Ketones Ql (U) Negative Normal NEG [facility] Comment on above: Performed By: #### U A ####[facility] ([id number])[address], [place] [address] Leukocyte esterase Test strip Ql (U) Negative Normal NEG [facility] Comment on above: Performed By: #### U A ####[facility] ([id number])[address] [address], [place] [address] Nitrite Ql (U) Negative Normal NEG [facility] Comment on above: Performed By: #### U A ####[facility] ([id number])[address] [address], [place] [address] pH (U) 5.0 [pH] Normal 5.0-8.5 [facility] Comment on above: Performed By: #### U A ####[facility] ([id number])[address] [address], [place] [address] Protein Ql (U) Negative Normal NEG [facility] Comment on above: Performed By: #### U A ####[facility] ([id number])[address] [address] [address] Specific gravity (U) [Rel density] 1.022 Normal 1.003-1.035 [facility] Comment on above: Performed By: #### U A ####[facility] ([id number])[address] [address], [place] [address] TURBIDITY CLEAR Normal CLEAR [facility] Comment on above: Performed By: #### U A ####[facility] ([id number])[address], [place] [address] Urinalysis dipstick W Reflex Microscopic panel (U) URINE RECEIVED WITHOUT PRESERVATIVE-DELAYS IN TRANSPORT MAY AFFECT RESULTS.INTERPRET WITH CAUTION AND CLINICAL CORRELATION IS RECOMMENDED. Normal [facility] Comment on above: Performed By: #### U A ####[facility] ([id number])[address], [address] [place] [address] Urobilinogen (U) [Mass/Vol] mg/dL Normal <1.1 [facility] Comment on above: Performed By: #### U A ####[facility] ([id number])[address] [address] [place] [address] XR CHEST 1 VWon 06-29-2024 XR CHEST 1 VW Normal [facility] BASIC METABOLIC PANLon 06-28 Anion gap [Moles/Vol] 8 mmol/L Normal 5-15 [facility] Comment on above: Performed By: #### C BCA, BMP ####[facility] ([id number])[address] [address], [place] [address] Calcium [Mass/Vol] 9.2 mg/dL Normal 8.5-10.5 [facility] Comment on above: Performed By: #### C BCA, BMP ####[facility] ([id number])[address] [address] [place] [address], [place] [address] Chloride [Moles/Vol] 105 mmol/L Normal 98-109 [facility] Comment on above: Performed By: #### C BCA, BMP ####[facility] ([id number])[address] [address], [place] [address] CO2 [Moles/Vol] 26 mmol/L Normal 22-32 [facility] Comment on above: Performed By: #### C BCA, BMP ####[facility] ([id number])[address] [address] Creatinine [Mass/Vol] 0.56 mg/dL Low 0.60-1.30 [facility] Comment on above: Result Comment: METH OD TRACEABLE TO IDMS STANDARD Performed By: #### C BCA, BMP ####[facility] ([id number])[address] [address] eGFR (CKD-EPI) NON-RACE DEPENDENT >90 Normal >59 [facility] Comment on above: Result Comment: Repo rted eGFR is based on theCKD-EPI 2020 equation that doesnot use a race coefficient. Performed By: #### C BCA, BMP ####[facility] ([id number])[address] [address] Glucose [Mass/Vol] 99 mg/dL Normal 65-99 [facility] Comment on above: Performed By: #### C BCA, BMP ####[facility] ([id number])[address] [address] Potassium [Moles/Vol] 4.0 mmol/L Normal 3.5-5.0 [facility] Comment on above: Performed By: #### C BCA, BMP ####[facility] ([id number])[address] [address] Sodium [Moles/Vol] 139 mmol/L Normal 134-146 [facility] Comment on above: Performed By: #### C BCA, BMP ####[facility] ([id number])[address] [address] Urea nitrogen [Mass/Vol] 33 mg/dL High 5-27 [facility] Comment on above: Performed By: #### C BCA, BMP ####[facility] ([id number])[address], [place] [address] CBC AND AUTO DIFFon 06-28-20 24 ABSOLUTE BASOPHIL 0.1 X10E9/L Normal 0.0-0.2 [facility] [facility] Comment on above: Performed By: #### C ENZO, BMP ####[facility] ([id number])[address], [address] [address] ABSOLUTE NEUTROPHIL 9.1 X10E9/L High 1.5-6.6 [facility] Comment on above: Performed By: #### C ENZO, BMP ####[facility] ([id number])[address], [place] [address] Basophils/100 WBC (Bld) 0.5 % Normal [facility] Comment on above: Performed By: #### C ENZO, BMP ####[facility] ([id number])[address], [address], [place] [address] Eosinophils (Bld) [#/Vol] 0.1 10*3/uL Normal 0.0-0.4 [facility] Comment on above: Performed By: #### C ENZO, BMP ####[facility] ([id number])[address] [address], [place] [address] Eosinophils/100 WBC (Bld) 0.9 % Normal [facility] Comment on above: Performed By: #### C ENZO, BMP ####[facility] ([id number])[address], [address], [place] [address] Erythrocyte distribution width (RBC) [Ratio] 15.6 % High 11.5-15.0 [facility] Comment on above: Performed By: #### C ENZO, BMP ####[facility] ([id number])[address], [address] [address] Hematocrit (Bld) [Volume fraction] 39.2 % Normal 39-49 [facility] Comment on above: Performed By: #### C BCA, BMP ####[facility] ([id number])[address] [address] [place] [address] Hemoglobin (Bld) [Mass/Vol] 12.9 g/dL Low 13.0-17.0 [facility] Comment on above: Performed By: #### C BCA, BMP ####[facility] ([id number])[address] [address] [place] [address] Lymphocytes (Bld) [#/Vol] 1.6 10*3/uL Normal 1.0-3.5 [facility] Comment on above: Performed By: #### C BCA, BMP ####[facility] ([id number])[address] [address] [place] [address] Lymphocytes/100 WBC (Bld) 13.6 % Normal [facility] Comment on above: Performed By: #### C BCA, BMP ####[facility] ([id number])[address] [address] MCH (RBC) [Entitic mass] 30.6 pg Normal 27-34 [facility] Comment on above: Performed By: #### C BCA, BMP ####[facility] ([id number])[address] [address] [place] [address] MCHC (RBC) [Mass/Vol] 33.0 g/dL Normal 32-36 [facility] Comment on above: Performed By: #### C BCA, BMP ####[facility] ([id number])[address] [address] [place] [address] MCV (RBC) [Entitic vol] 93 fL Normal 80-100 [facility] Comment on above: Performed By: #### C BCA, BMP ####[facility] ([id number])[address] [address] Monocytes (Bld) [#/Vol] 0.7 10*3/uL Normal 0-0.9 [facility] Comment on above: Performed By: #### C ENZO, BMP ####[facility] ([id number])[address] [address] Monocytes/100 WBC (Bld) 5.9 % Normal [facility] Comment on above: Performed By: #### C ENZO, BMP ####[facility] ([id number])[address], [place] [address] Neutrophils/100 WBC (Bld) 79.1 % Normal [facility] Comment on above: Performed By: #### C ENZO, BMP ####[facility] ([id number])[address], [address], [place] [address] Platelet mean volume (Bld) [Entitic vol] 8.0 fL Normal 7-12 [facility] Comment on above: Performed By: #### C ENZO, BMP ####[facility] ([id number])[address] [address] Platelets (Bld) [#/Vol] 186 10*3/uL Normal 150-450 [facility] Comment on above: Performed By: #### C ENZO, BMP ####[facility] ([id number])[address] [address] RBC COUNT 4.22 X10E12/L Normal 4.10-5.70 [facility] Comment on above: Performed By: #### C ENZO, BMP ####[facility] ([id number])[address] [address] [address] WBC (Bld) [#/Vol] 11.5 10*3/uL High 4.0-11.0 [facility] Comment on above: Performed By: #### C ENZO, BMP ####[facility] ([id number])[address], [place] [address] FL SWALLOW MOTILITY FUNCTION on 06-28-2024 FL SWALLOW MOTILITY FUNCTION Normal [facility] Glucose Glucometer (BldC) [M ass/Vol]on 06-28-2024 Glucose [Mass/Vol] 133 mg/dL High 65-99 [facility] Glucose [Mass/Vol] 139 mg/dL High 65-99 [facility] Glucose [Mass/Vol] 173 mg/dL High 65-99 [facility] Glucose [Mass/Vol] 106 mg/dL High 65-99 [facility] Glucose [Mass/Vol] 210 mg/dL High 65-99 [facility] Glucose [Mass/Vol] 88 mg/dL Normal 65-99 [facility] BASIC METABOLIC PANLon 06-27 Anion gap [Moles/Vol] 8 mmol/L Normal 5-15 [facility] Comment on above: Performed By: #### C BCA, BMP ####[facility] ([id number])[address] [address] Calcium [Mass/Vol] 9.1 mg/dL Normal 8.5-10.5 [facility] Comment on above: Performed By: #### Ivon BCA, BMP ####[facility] ([id number])[address], [place] [address] Chloride [Moles/Vol] 107 mmol/L Normal 98-109 [facility] Comment on above: Performed By: #### C BCA, BMP ####[facility] ([id number])[address], [place] [address] CO2 [Moles/Vol] 25 mmol/L Normal 22-32 [facility] Comment on above: Performed By: #### C BCA, BMP ####[facility] ([id number])[address], [place] [address] Creatinine [Mass/Vol] 0.63 mg/dL Normal 0.60-1.30 [facility] Comment on above: Result Comment: METH OD TRACEABLE TO IDMS STANDARD Performed By: #### C ENZO, BMP ####[facility] ([id number])[address] [address], [place] [address] eGFR (CKD-EPI) NON-RACE DEPENDENT >90 Normal >59 [facility] Comment on above: Result Comment: Repo rted eGFR is based on theCKD-EPI 2020 equation that doesnot use a race coefficient. Performed By: #### C ENZO, BMP ####[facility] ([id number])[address] [address] Glucose [Mass/Vol] 150 mg/dL High 65-99 [facility] Comment on above: Performed By: #### C ENZO, BMP ####[facility] ([id number])[address] [address] [place] [address] Potassium [Moles/Vol] 3.9 mmol/L Normal 3.5-5.0 [facility] Comment on above: Performed By: #### C ENZO, BMP ####[facility] ([id number])[address] [address] Sodium [Moles/Vol] 140 mmol/L Normal 134-146 [facility] Comment on above: Performed By: #### C ENZO, BMP ####[facility] ([id number])[address] [address] Urea nitrogen [Mass/Vol] 36 mg/dL High 5-27 [facility] Comment on above: Performed By: #### C BCA, BMP ####[facility] ([id number])[address] [address] CBC AND AUTO DIFFon 06-27-20 24 ABSOLUTE BASOPHIL 0.0 X10E9/L Normal 0.0-0.2 [facility] Comment on above: Performed By: #### C BCA, BMP ####[facility] ([id number])[address] [address] [place] [address] ABSOLUTE NEUTROPHIL 9.3 X10E9/L High 1.5-6.6 [facility] Comment on above: Performed By: #### C BCA, BMP ####[facility] ([id number])[address] [address] [place] [address] Basophils/100 WBC (Bld) 0.2 % Normal [facility] Comment on above: Performed By: #### C BCA, BMP ####[facility] ([id number])[address] [address] [place] [address] Eosinophils (Bld) [#/Vol] 0.1 10*3/uL Normal 0.0-0.4 [facility] Comment on above: Performed By: #### C BCA, BMP ####[facility] ([id number])[address] [address] Eosinophils/100 WBC (Bld) 0.7 % Normal [facility] Comment on above: Performed By: #### C BCA, BMP ####[facility] ([id number])[address] [address] Erythrocyte distribution width (RBC) [Ratio] 16.0 % High 11.5-15.0 [facility] Comment on above: Performed By: #### C BCA, BMP ####[facility] ([id number])[address] [address] Hematocrit (Bld) [Volume fraction] 37.8 % Low 39-49 [facility] Comment on above: Performed By: #### C BCA, BMP ####[facility] ([id number])[address] [address] Hemoglobin (Bld) [Mass/Vol] 12.6 g/dL Low 13.0-17.0 [facility] Comment on above: Performed By: #### C ENZO, BMP ####[facility] ([id number])[address] [place] [address] Lymphocytes (Bld) [#/Vol] 1.6 10*3/uL Normal 1.0-3.5 [facility] Comment on above: Performed By: #### C ENZO, BMP ####[facility] ([id number])[address] [address] Lymphocytes/100 WBC (Bld) 13.6 % Normal [facility] Comment on above: Performed By: #### C ENZO, BMP ####[facility] ([id number])[address] [address] MCH (RBC) [Entitic mass] 31.0 pg Normal 27-34 [facility] Comment on above: Performed By: #### C ENZO, BMP ####[facility] ([id number])[address], [place] [address] MCHC (RBC) [Mass/Vol] 33.3 g/dL Normal 32-36 [facility] Comment on above: Performed By: #### C ENZO, BMP ####[facility] ([id number])[address] [address] MCV (RBC) [Entitic vol] 93 fL Normal 80-100 [facility] Comment on above: Performed By: #### C ENZO, BMP ####[facility] ([id number])[address] [address] Monocytes (Bld) [#/Vol] 0.8 10*3/uL Normal 0-0.9 [facility] Comment on above: Performed By: #### C ENZO, BMP ####[facility] [place] ([id number])[address], [place] [address] Monocytes/100 WBC (Bld) 6.5 % Normal [facility] Comment on above: Performed By: #### C ENZO, BMP ####[facility] ([id number])[address], [place] [address] Neutrophils/100 WBC (Bld) 79.0 % Normal [facility] Comment on above: Performed By: #### C ENZO, BMP ####[facility] [place] [facility] ([id number])[address], [place] [address] Platelet mean volume (Bld) [Entitic vol] 8.4 fL Normal 7-12 [facility] Comment on above: Performed By: #### C ENZO, BMP ####[facility] [place] [facility] ([id number])[address], [place] [address] Platelets (Bld) [#/Vol] 195 10*3/uL Normal 150-450 [facility] Comment on above: Performed By: #### C ENZO, BMP ####[facility] [place] [facility] ([id number])[address], [place] [address] RBC COUNT 4.06 X10E12/L Low 4.10-5.70 [facility] Comment on above: Performed By: #### C ENZO, BMP ####[facility] [place] [facility] ([id number])[address], [place] [address] WBC (Bld) [#/Vol] 11.8 10*3/uL High 4.0-11.0 [facility] Comment on above: Performed By: #### C ENZO, BMP ####[facility] [place] ([id number])[address], [place] [address] Glucose Glucometer (BldC) [M ass/Vol]on 06-27-2024 Glucose [Mass/Vol] 126 mg/dL High 65-99 [facility] Glucose [Mass/Vol] 147 mg/dL High 65-99 [facility] Glucose [Mass/Vol] 165 mg/dL High 65-99 [facility] Glucose [Mass/Vol] 157 mg/dL High 65-99 [facility] Glucose [Mass/Vol] 115 mg/dL High 65-99 [facility] Glucose [Mass/Vol] 147 mg/dL High 65-99 [facility] ARTERIAL BLOOD GASon 024 KALEB'S TEST Pass Normal [facility] Comment on above: Performed By: #### A BG ####[facility] ([id number])[address] [place] [address] BASE,DEFICIT 1.0 MMOL/L Normal 0.0-2.0 [facility] Comment on above: Performed By: #### A BG ####[facility] ([id number])[address] [place] [address] Body temperature 98.6 [degF] Normal 37.0 [facility] Comment on above: Performed By: #### A BG ####[facility] ([id number])[address] [place] [address] HCO3 (Bld) [Moles/Vol] 23.2 mmol/L Normal 22-26 [facility] Comment on above: Performed By: #### A BG ####[facility] ([address] [place] [address])[address] [place] [address] INSP. O2 CONC. 44 % Normal [facility] Comment on above: Performed By: #### A BG ####[facility] ([id number])[address] [place] [address] Oxygen (Bld) [Partial pressure] 98 mm[Hg] Normal 80-100 [facility] Comment on above: Performed By: #### A BG ####[facility] ([id number])[address] [place] [address] Oxygen saturation in Blood 98.0 % Normal >90 [facility] Comment on above: Performed By: #### A BG ####[facility] ([id number])[address] [place] [address] OXYGEN SOURCE [place] [facility] Comment on above: Performed By: #### A BG ####[facility] ([id number])[address] [place] [address] PCO2 35.4 MMHG Normal 35-45 [facility] Comment on above: Performed By: #### A BG ####[facility] ([id number])[address] [place] [address] pH (Bld) 7.425 [pH] Normal 7.350-7.450 [facility] Comment on above: Performed By: #### A BG ####[facility] ([id number])[address] [place] [address] SAMPLE SITE LRad [facility] Comment on above: Performed By: #### A BG ####[facility] ([id number])[address] [place] [address] SAMPLE TYPE ARTERIAL Normal [facility] Comment on above: Performed By: #### A BG ####[facility] ([id number])[address] [place] [address] BASIC METABOLIC PANLon 06-26 Anion gap [Moles/Vol] 10 mmol/L Normal 5-15 [facility] Comment on above: Performed By: #### C BCA, BMP ####[facility] ([id number])[address] [facility] [address], [place] [address] Calcium [Mass/Vol] 9.3 mg/dL Normal 8.5-10.5 [facility] Comment on above: Performed By: #### C BCA, BMP ####[facility] [place] ([id number])[address], [place] [address] Chloride [Moles/Vol] 106 mmol/L Normal 98-109 [facility] Comment on above: Performed By: #### C BCA, BMP ####[facility] [place] ([id number])[address], [place] [address] CO2 [Moles/Vol] 21 mmol/L Low 22-32 [facility] Comment on above: Performed By: #### C BCA, BMP ####[facility] ([id number])[address], [place] [address] Creatinine [Mass/Vol] 0.72 mg/dL Normal 0.60-1.30 [facility] Comment on above: Result Comment: METH OD TRACEABLE TO IDMS STANDARD Performed By: #### C BCA, BMP ####[facility] ([id number])[address] [address] [place] [address] eGFR (CKD-EPI) NON-RACE DEPENDENT >90 Normal >59 [facility] Comment on above: Result Comment: Repo rted eGFR is based on theCKD-EPI 2020 equation that doesnot use a race coefficient. Performed By: #### C BCA, BMP ####[facility] ([id number])[address] [address], [place] [address] Glucose [Mass/Vol] 194 mg/dL High 65-99 [facility] Comment on above: Performed By: #### C BCA, BMP ####[facility] ([id number])[address] [address], [place] [address] Potassium [Moles/Vol] 4.1 mmol/L Normal 3.5-5.0 [facility] Comment on above: Performed By: #### C BCA, BMP ####[facility] ([id number])[address] [address], [place] [address] Sodium [Moles/Vol] 137 mmol/L Normal 134-146 [facility] Comment on above: Performed By: #### C BCA, BMP ####[facility] ([id number])[address], [place] [address] Urea nitrogen [Mass/Vol] 34 mg/dL High 5-27 [facility] Comment on above: Performed By: #### C ENZO, BMP ####[facility] ([id number])[address] [address] [place] [address] BLOOD CULTUREon 06-26-2024 Bacteria identified Aer cx Nom (Bld) SPECIMEN NOTES SUBOPTIMAL VOLUME OF BLOOD COLLECTED, RESULTS MAY BE AFFECTED. CULTURE RESULTS NO GROWTH 5 DAYS Normal [facility] Comment on above: Performed By: #### 1 7928-3 ####[facility] ([id number])[address] [address], [place] [address] CBC AND AUTO DIFFon 06-26-20 ABSOLUTE BASOPHIL 0.1 X10E9/L Normal 0.0-0.2 [facility] Comment on above: Performed By: #### C ENZO, BMP ####[facility] ([id number])[address] [address], [place] [address] ABSOLUTE NEUTROPHIL 9.8 X10E9/L High 1.5-6.6 [facility] Comment on above: Performed By: #### C ENZO, BMP ####[facility] ([id number])[address] [address] Basophils/100 WBC (Bld) 0.6 % Normal [facility] Comment on above: Performed By: #### C ENZO, BMP ####[facility] [place] ([id number])[address] [address], [place] [address] Eosinophils (Bld) [#/Vol] 0.0 10*3/uL Normal 0.0-0.4 [facility] Comment on above: Performed By: #### C ENZO, BMP ####[facility] [place] [facility] ([id number])[address], [place] [address] Eosinophils/100 WBC (Bld) 0.2 % Normal [facility] Comment on above: Performed By: #### C ENZO, BMP ####[facility] [place] [facility] ([id number])[address] [address] Erythrocyte distribution width (RBC) [Ratio] 15.6 % High 11.5-15.0 [facility] Comment on above: Performed By: #### C ENZO, BMP ####[facility] [place] [facility] ([id number])[address] [address] Hematocrit (Bld) [Volume fraction] 38.9 % Low 39-49 [facility] Comment on above: Performed By: #### C ENZO, BMP ####[facility] [place] [facility] ([id number])[address] [address] Hemoglobin (Bld) [Mass/Vol] 12.8 g/dL Low 13.0-17.0 [facility] Comment on above: Performed By: #### C ENZO, BMP ####[facility] [place] [facility] ([id number])[address] [address] [address] Lymphocytes (Bld) [#/Vol] 1.4 10*3/uL Normal 1.0-3.5 [facility] Comment on above: Performed By: #### C ENZO, BMP ####[facility] [place] [facility] ([id number])[address] [address] [address] Lymphocytes/100 WBC (Bld) 11.9 % Normal [facility] Comment on above: Performed By: #### C ENZO, BMP ####[facility] [place] [facility] ([id number])[address], [place] [address] MCH (RBC) [Entitic mass] 30.4 pg Normal 27-34 [facility] Comment on above: Performed By: #### C BCA, BMP ####[facility] [place] [facility] ([id number])[address] [address] MCHC (RBC) [Mass/Vol] 32.8 g/dL Normal 32-36 [facility] Comment on above: Performed By: #### C ENZO, BMP ####[facility] [place] [facility] ([id number])[address], [place] [address] MCV (RBC) [Entitic vol] 93 fL Normal 80-100 [facility] Comment on above: Performed By: #### C ENZO, BMP ####[facility] [place] [facility] ([id number])[address], [place] [address] Monocytes (Bld) [#/Vol] 0.6 10*3/uL Normal 0-0.9 [facility] Comment on above: Performed By: #### C ENZO, BMP ####[facility] [place] [facility] ([id number])[address], [place] [address] Monocytes/100 WBC (Bld) 5.2 % Normal [facility] Comment on above: Performed By: #### C ENZO, BMP ####[facility] [place] [facility] ([id number])[address], [place] [address] Neutrophils/100 WBC (Bld) 82.1 % Normal [facility] Comment on above: Performed By: #### C ENZO, BMP ####[facility] [place] [facility] ([id number])[address] [address] Platelet mean volume (Bld) [Entitic vol] 8.7 fL Normal 7-12 [facility] Comment on above: Performed By: #### C BCA, BMP ####[facility] ([id number])[address] [place] [address] Platelets (Bld) [#/Vol] 210 10*3/uL Normal 150-450 [facility] Comment on above: Performed By: #### C BCA, BMP ####[facility] [facility] ([id number])[address], [place] [address] RBC COUNT 4.20 X10E12/L Normal 4.10-5.70 [facility] Comment on above: Performed By: #### C ENZO, BMP ####[facility] [place] [facility] ([id number])[address] [place] [address] WBC (Bld) [#/Vol] 12.0 10*3/uL High 4.0-11.0 [facility] Comment on above: Performed By: #### C ENZO, BMP ####[facility] ([id number])[address], [place] [address] CONT[address] BRAIN WO CONT Normal [facility] Glucose Glucometer (dC) [M ass/Vol]on 06-26-2024 Glucose [Mass/Vol] 167 mg/dL High 65-99 [facility] Glucose [Mass/Vol] 214 mg/dL High 65-99 [facility] Glucose [Mass/Vol] 162 mg/dL High 65-99 [facility] Glucose [Mass/Vol] 188 mg/dL High 65-99 [facility] Glucose [Mass/Vol] 150 mg/dL High 65-99 [facility] Glucose [Mass/Vol] 184 mg/dL High 65-99 [facility] AMMONIAon 06-25-2024 Ammonia (P) [Moles/Vol] 46 umol/L Normal 18-72 [facility] Comment on above: Result Comment: NEW REFERENCE RANGE Performed By: #### 1 6362-6, 04095-2, LIVR, 2157-6, 85030-0, 2284-8, 2132-9, 00905-5 ####[facility] [place] [facility] ([id number])[address], [place] [address] BASIC METABOLIC PANLon 06-25 Anion gap [Moles/Vol] 8 mmol/L Normal 5-15 [facility] Comment on above: Performed By: #### C BCA BMP, 93418-8 ####[facility] ([id number])[address], [address] [place] [address], [place] [address] Calcium [Mass/Vol] 9.2 mg/dL Normal 8.5-10.5 [facility] Comment on above: Performed By: #### C BCA, BMP, 03348-4 ####[facility] ([id number])[address], [address] [place] [address], [place] [address] Chloride [Moles/Vol] 107 mmol/L Normal 98-109 [facility] Comment on above: Performed By: #### C BCA, BMP, 81990-8 ####[facility] ([id number])[address] [address] [place] [address], [place] [address] CO2 [Moles/Vol] 23 mmol/L Normal 22-32 [facility] Comment on above: Performed By: #### C BCA, BMP, 14349-6 ####[facility] ([id number])[address] [address] [place] [address], [place] [address] Creatinine [Mass/Vol] 0.72 mg/dL Normal 0.60-1.30 [facility] Comment on above: Result Comment: METH OD TRACEABLE TO IDMS STANDARD Performed By: #### C BCA, BMP, 32453-5 ####[facility] ([id number])[address], [address] [place] [address], [place] [address] eGFR (CKD-EPI) NON-RACE DEPENDENT >90 Normal >59 [facility] Comment on above: Result Comment: Repo rted eGFR is based on theD-EPI 2020 equation that doesnot use a race coefficient. Performed By: #### C TK GIRALDO, 31672-2 ####[facility] ([id number])[address], [place] [address] Glucose [Mass/Vol] 193 mg/dL High 65-99 [facility] Comment on above: Performed By: #### C TK GIRALDO, 09947-0 ####[facility] ([id number])[address] [address], [place] [address] Potassium [Moles/Vol] 4.2 mmol/L Normal 3.5-5.0 [facility] Comment on above: Performed By: #### TK Del Valle BCA, 94904-3 ####[facility] ([id number])[address] [address] Sodium [Moles/Vol] 138 mmol/L Normal 134-146 [facility] Comment on above: Performed By: #### TK Del Valle BCA, 51879-8 ####[facility] ([id number])[address] [address], [place] [address] Urea nitrogen [Mass/Vol] 34 mg/dL High 5-27 [facility] Comment on above: Performed By: #### TK Del Valle BCA, 67055-2 ####[facility] ([id number])[address] [address], [place] [address] CBC AND AUTO DIFFon 06-25-20 24 ABSOLUTE BASOPHIL 0.0 X10E9/L Normal 0.0-0.2 [facility] Comment on above: Performed By: #### TK Del Valle BCA, 79643-4 ####[facility] LAB ([id number])[address] [address] [address] ABSOLUTE NEUTROPHIL 8.6 X10E9/L High 1.5-6.6 [facility] Comment on above: Performed By: #### TK Del Valle BCA, 98339-8 ####[facility] [place] [facility] ([id number])[address], [place] [address] Basophils/100 WBC (Bld) 0.2 % Normal [facility] Comment on above: Performed By: #### TK Del Valle BCA, 77669-7 ####[facility] [place] ([id number])[address] [address] [address] Eosinophils (Bld) [#/Vol] 0.0 10*3/uL Normal 0.0-0.4 [facility] Comment on above: Performed By: #### TK Del Valle BCA, 07917-2 ####[facility] [place] [facility] ([id number])[address] [address], [place] [address] Eosinophils/100 WBC (Bld) 0.4 % Normal [facility] Comment on above: Performed By: #### TK Del Valle BCA, 52938-0 ####[facility] [place] [facility] ([id number])[address] [address], [place] [address] Erythrocyte distribution width (RBC) [Ratio] 16.0 % High 11.5-15.0 [facility] Comment on above: Performed By: #### TK Del Valle BCA, 22245-9 ####[facility] [place] [facility] ([id number])[address] [address], [place] [address] Hematocrit (Bld) [Volume fraction] 38.6 % Low 39-49 [facility] Comment on above: Performed By: #### TK Del Valle BCA, 90547-1 ####[facility] [place] [facility] ([id number])[address] [address], [place] [address] Hemoglobin (Bld) [Mass/Vol] 12.8 g/dL Low 13.0-17.0 [facility] Comment on above: Performed By: #### TK Del Valle BCA, 47846-7 ####[facility] [place] [facility] ([id number])[address], [address] [place] [address] Lymphocytes (Bld) [#/Vol] 1.3 10*3/uL Normal 1.0-3.5 [facility] Comment on above: Performed By: #### TK Del Valle BCA, 61004-3 ####[facility] [place] [facility] ([id number])[address], [address], [place] [address] Lymphocytes/100 WBC (Bld) 12.1 % Normal [facility] Comment on above: Performed By: #### TK Del Valle BCA, 31905-4 ####[facility] [place] [facility] ([id number])[address], [address], [place] [address] MCH (RBC) [Entitic mass] 30.8 pg Normal 27-34 [facility] Comment on above: Performed By: #### TK Del Valle BCA, 96827-6 ####[facility] [place] [facility] ([id number])[address], [address], [place] [address] MCHC (RBC) [Mass/Vol] 33.1 g/dL Normal 32-36 [facility] Comment on above: Performed By: #### TK Del Valle BCA, 56621-6 ####[facility] [place] [facility] ([id number])[address] [address] MCV (RBC) [Entitic vol] 93 fL Normal 80-100 [facility] Comment on above: Performed By: #### TK Del Valle BCA, 86800-8 ####[facility] [place] [facility] ([id number])[address], [address], [place] [address] Monocytes (Bld) [#/Vol] 0.5 10*3/uL Normal 0-0.9 [facility] Comment on above: Performed By: #### C ENZO, BMP, 96229-9 ####[facility] [place] ([id number])[address] [place] [address] Monocytes/100 WBC (Bld) 5.1 % Normal [facility] Comment on above: Performed By: #### Ivon GIRALDO, BMP, 18075-3 ####[facility] [place] [facility] ([id number])[address] [place] [address] Neutrophils/100 WBC (Bld) 82.2 % Normal [facility] Comment on above: Performed By: #### Ivon GIRALDO, BMP, 07114-7 ####[facility] [place] [facility] ([id number])[address] [place] [address] Platelet mean volume (Bld) [Entitic vol] 8.5 fL Normal 7-12 [facility] Comment on above: Performed By: #### Ivon GIRALDO, BMP, 22026-1 ####[facility] [place] [facility] ([id number])[address], [address] [address] Platelets (Bld) [#/Vol] 197 10*3/uL Normal 150-450 [facility] Comment on above: Performed By: #### Ivon GIRALDO, BMP, 70416-5 ####[facility] [place] [facility] ([id number])[address], [address], [place] [address] RBC COUNT 4.14 X10E12/L Normal 4.10-5.70 [facility] Comment on above: Performed By: #### Ivon GIRALDO, BMP, 02241-1 ####[facility] [place] [facility] ([id number])[address], [address], [place] [address] WBC (Bld) [#/Vol] 10.4 10*3/uL Normal 4.0-11.0 [facility] Comment on above: Performed By: #### Ivon GIRALDO, BMP, 20469-3 ####[facility] [place] [facility] ([id number])[address] [facility], [place] [address] CK [Catalytic activity/Vol]o n 06-25-2024 CPK 84 U/L Normal 24-195 [facility] Comment on above: Performed By: #### 1 6362-6, 85300-8, LIVR, 2157-6, 08278-6, 8, 2132-06, 07641-8 ####[facility] [place] [facility] ([id number])[address] [facility], [address] [place] [address] Folate [Mass/Vol]on 06-25-20 FOLIC ACID 11.6 ng/mL Normal >5.8 [facility] Comment on above: Result Comment: NEW REFERENCE RANGE Performed By: #### 1 6362-6, 54514-5, LIVR, 7-6, 40852-1, 8, 2132-06, 16143-3 ####[facility] [place] [facility] ([id number])[address] [facility], [address] [place] [address] Glucose Glucometer (BldC) [M ass/Vol]on 06-25-2024 Glucose [Mass/Vol] 166 mg/dL High 65-99 [facility] Glucose [Mass/Vol] 189 mg/dL High 65-99 [facility] Glucose [Mass/Vol] 171 mg/dL High 65-99 [facility] Glucose [Mass/Vol] 238 mg/dL High 65-99 [facility] Glucose [Mass/Vol] 188 mg/dL High 65-99 [facility] Glucose [Mass/Vol] 201 mg/dL High 65-99 [facility] LIVER PANELon 06-25-2024 Albumin [Mass/Vol] 3.3 g/dL Normal 3.2-5.3 [facility] Comment on above: Performed By: #### 1 6362-6, 80986-2, LIVR, 7-6, 31959-0, 8, 2132-06, 53711-3 ####[facility] [place] [facility] ([id number])[address], [address], [place] [address] ALP [Catalytic activity/Vol] 44 U/L Normal 39-130 [facility] Comment on above: Performed By: #### 1 6362-6, 95595-6, LIVR, 2157-6, 20887-2, 2284-8, 2131-9, 22907-4 ####[facility] [place] [facility] ([id number])[address], [address], [place] [address] ALT [Catalytic activity/Vol] 20 U/L Normal 0-40 [facility] Comment on above: Performed By: #### 1 6362-6, 43056-1, LIVR, 2157-6, 55022-0, 4-8, 9, 29235-2 ####[facility] [place] [facility] ([id number])[address], [address], [place] [address] AST [Catalytic activity/Vol] 27 U/L Normal 0-41 [facility] Comment on above: Performed By: #### 1 6362-6, 95250-8, LIVR, 2157-6, 08071-5, 4-8, 9, 04283-4 ####[facility] [place] [facility] ([id number])[address], [address], [place] [address] Bilirubin [Mass/Vol] 1.0 mg/dL Normal 0.3-1.2 [facility] Comment on above: Performed By: #### 1 6362-6, 26204-1, LIVR, 2157-6, 02319-2, 2284-8, 2131-9, 30865-4 ####[facility] [place] [facility] ([id number])[address], [address], [place] [address] Bilirubin.direct [Mass/Vol] 0.2 mg/dL Normal 0.0-0.4 [facility] Comment on above: Performed By: #### 1 6362-6, 07263-1, LIVR, 2157-6, 28010-0, 2284-8, 2131-9, 89554-7 ####[facility] [place] [facility] ([id number])[address], [address] [address] Protein [Mass/Vol] 6.4 g/dL Normal 6.0-8.0 [facility] Comment on above: Performed By: #### 1 6362-6, 83742-7, LIVR, 2157-6, 38108-6, 2284-8, 2131-9, 14616-1 ####[facility] [place] ([id number])[address], [address] [address] Lactate (P chauncey) [Moles/Vol]o n 06-25-2024 LACTATE W/REFLEX 1.1 mmol/L Normal 0.4-2.0 [facility] Comment on above: Result Comment: Resu lt did not trigger repeat Lactate,re-order if needed. Performed By: #### 1 6362-6, 64558-8, LIVR, 2157-6, 55670-9, 2283-8, 9, 12744-5 ####[facility] [place] [facility] ([id number])[address] [address] Procalcitonin IA [Mass/Vol]o n 06-25-2024 PROCALCITONIN 0.87 ng/mL High <0.05 [facility] Comment on above: Result Comment: NOTE <0.50 ng/mL - Low risk of severe sepsis and/or septic shock.<2.00 ng/mL - Recommend retesting within 6-24 hours.>2.00 ng/mL - High risk of sepsis and/or septic shock. Performed By: #### 1 6362-6, 83354-6, LIVR, 2157-6, 61983-3, 2284-8, 2131-9, 99420-5 ####[facility] [place] [facility] ([id number])[address], [place] [address] Troponin I.cardiac High sens itivity method [Mass/Vol]on 06-25-2024 3 HOUR TROP I, HIGH SENSITIVITY 12 ng/L Normal <21 [facility] Comment on above: Performed By: #### C BCA, BMP, 89498-5 ####[facility] [place] [facility] ([id number])[address], [address], [place] [address] VITAMIN B12on 06-25-2024 Cobalamin (Vitamin B12) [Mass/Vol] 269 pg/mL Normal 180-914 [facility] Comment on above: Performed By: #### 1 6362-6, 50159-1, LIVR, 2157-03, 63273-7, 2283-8, 2132-06, 85103-7 ####[facility] [place] ([id number])[address], [address] [place] [address] Vitamin D+Metabolites [Mass/ Vol]on 06-25-2024 VITAMIN D 25 HYD TOT 17.8 ng/mL Low 30-100 [facility] Comment on above: Result Comment: Katherine min D status 25 [place] Vitamin D Deficiency <20 ng/mLInsufficiency 20-29 ng/mLSufficiency 30-100 ng/mLToxicity >100 ng/mLNOTE: A pediatric reference range has not beenestablished by the fitting room attendant of this kit.The [place] [employer] recommendsa Vitamin D level of = or >20ng/mL in infantsand children. Performed By: #### 1 6362-6, 48588-8, LIVR, 6, 21870-5, 2283-8, 9, 30316-7 ####[facility] [place] [facility] ([id number])[address], [address], [place] [address] XR CHEST 1 VWon 06-25-2024 XR CHEST 1 VW Normal [facility] BASIC METABOLIC PANLon 06-24 Anion gap [Moles/Vol] 11 mmol/L Normal 5-15 [facility] Comment on above: Performed By: #### C BCA, BMP ####[facility] [place] [facility] ([id number])[address], [address], [place] [address] Calcium [Mass/Vol] 9.4 mg/dL Normal 8.5-10.5 [facility] Comment on above: Performed By: #### C BCA, BMP ####[facility] [place] [facility] ([id number])[address], [address] [place] [address] Chloride [Moles/Vol] 106 mmol/L Normal 98-109 [facility] Comment on above: Performed By: #### C BCA, BMP ####[facility] [place] [facility] ([id number])[address], [address], [place] [address] CO2 [Moles/Vol] 22 mmol/L Normal 22-32 [facility] Comment on above: Performed By: #### C BCA, BMP ####[facility] [place] ([id number])[address] [address], [place] [address] Creatinine [Mass/Vol] 0.96 mg/dL Normal 0.60-1.30 [facility] Comment on above: Result Comment: METH OD TRACEABLE TO IDMS STANDARD Performed By: #### C BCA, BMP ####[facility] [place] [facility] ([id number])[address] [address], [place] [address] GFR/1.73 sq M.predicted among non-blacks MDRD (S/P/Bld) [Vol rate/Area] 87 mL/min/{1.73_m2} Normal >59 [facility] Comment on above: Result Comment: Repo rted eGFR is based on theCKD-EPI 2020 equation that doesnot use a race coefficient. Performed By: #### C BCA, BMP ####[facility] [place] ([id number])[address], [address] [place] [address] Glucose [Mass/Vol] 242 mg/dL High 65-99 [facility] Comment on above: Performed By: #### C ENZO, BMP ####[facility] [place] ([id number])[address], [address] [place] [address] Potassium [Moles/Vol] 4.1 mmol/L Normal 3.5-5.0 [facility] Comment on above: Performed By: #### C ENZO, BMP ####[facility] [place] [facility] ([id number])[address], [address] [address] Sodium [Moles/Vol] 139 mmol/L Normal 134-146 [facility] Comment on above: Performed By: #### C ENZO, BMP ####[facility] [place] [facility] ([id number])[address], [address] [address] Urea nitrogen [Mass/Vol] 41 mg/dL High 5-27 [facility] Comment on above: Performed By: #### C ENZO, BMP ####[facility] [place] [facility] ([id number])[address], [address] [address] CBC AND AUTO DIFFon 06-24-20 24 ABSOLUTE BASOPHIL 0.0 X10E9/L Normal 0.0-0.2 [facility] Comment on above: Performed By: #### C ENZO, BMP ####[facility] [place] [facility] ([id number])[address], [address], [place] [address] ABSOLUTE NEUTROPHIL 13.5 X10E9/L High 1.5-6.6 [facility] Comment on above: Performed By: #### C BCA, BMP ####[facility] [place] [facility] ([id number])[address], [address] [address] Basophils/100 WBC (Bld) 0.2 % Normal [facility] Comment on above: Performed By: #### C ENZO, BMP ####[facility] [place] [facility] ([id number])[address] [address] Eosinophils (Bld) [#/Vol] 0.0 10*3/uL Normal 0.0-0.4 [facility] Comment on above: Performed By: #### C ENZO, BMP ####[facility] [place] [facility] ([id number])[address] [address] Eosinophils/100 WBC (Bld) 0.2 % Normal [facility] Comment on above: Performed By: #### C ENZO, BMP ####[facility] [place] [facility] ([id number])[address] [address] Erythrocyte distribution width (RBC) [Ratio] 16.0 % High 11.5-15.0 [facility] Comment on above: Performed By: #### C ENZO, BMP ####[facility] [place] [facility] ([id number])[address] [address] Hematocrit (Bld) [Volume fraction] 40.0 % Normal 39-49 [facility] Comment on above: Performed By: #### C ENZO, BMP ####[facility] [place] [facility] ([id number])[address] [address] Hemoglobin (Bld) [Mass/Vol] 13.1 g/dL Normal 13.0-17.0 [facility] Comment on above: Performed By: #### C BCA, BMP ####[facility] [place] [facility] ([id number])[address] [address] Lymphocytes (Bld) [#/Vol] 1.5 10*3/uL Normal 1.0-3.5 [facility] Comment on above: Performed By: #### C ENZO, BMP ####[facility] [place] [facility] ([id number])[address] [address], [place] [address] Lymphocytes/100 WBC (Bld) 9.5 % Normal [facility] Comment on above: Performed By: #### C ENZO, BMP ####[facility] [place] [facility] ([id number])[address], [place] [address] MCH (RBC) [Entitic mass] 30.4 pg Normal 27-34 [facility] Comment on above: Performed By: #### C ENZO, BMP ####[facility] [place] [facility] ([id number])[address], [address], [place] [address] MCHC (RBC) [Mass/Vol] 32.8 g/dL Normal 32-36 [facility] Comment on above: Performed By: #### C ENZO, BMP ####[facility] [place] [facility] ([id number])[address], [address], [place] [address] MCV (RBC) [Entitic vol] 93 fL Normal 80-100 [facility] Comment on above: Performed By: #### C ENZO, BMP ####[facility] [place] [facility] ([id number])[address] [address] [place] [address] Monocytes (Bld) [#/Vol] 0.7 10*3/uL Normal 0-0.9 [facility] Comment on above: Performed By: #### C BCA, BMP ####[facility] [place] [facility] ([id number])[address] [address] [place] [address] Monocytes/100 WBC (Bld) 4.3 % Normal [facility] Comment on above: Performed By: #### C BCA, BMP ####[facility] [place] ([id number])[address] [address] [place] [address] Neutrophils/100 WBC (Bld) 85.8 % Normal [facility] Comment on above: Performed By: #### C BCA, BMP ####[facility] [place] [facility] ([id number])[address], [place] [address] Platelet mean volume (Bld) [Entitic vol] 8.9 fL Normal 7-12 [facility] Comment on above: Performed By: #### Ivon GIRALDO, BMP ####[facility] [place] [facility] ([id number])[address], [place] [address] Platelets (Bld) [#/Vol] 212 10*3/uL Normal 150-450 [facility] Comment on above: Performed By: #### Ivon GIRALDO, BMP ####[facility] [place] ([id number])[address], [place] [address] RBC COUNT 4.32 X10E12/L Normal 4.10-5.70 [facility] Comment on above: Performed By: #### Ivon GIRALDO, BMP ####[facility] [place] [facility] ([id number])[address], [address] [place] [address] WBC (Bld) [#/Vol] 15.8 10*3/uL High 4.0-11.0 [facility] Comment on above: Performed By: #### Ivon GIRALDO, BMP ####[facility] [place] [facility] ([id number])[address] [address] CONT[address] BRAIN WO CONT Normal [facility] Glucose Glucometer (dC) [M ass/Vol]on 06-24-2024 Glucose [Mass/Vol] 221 mg/dL High 65-99 [facility] Glucose [Mass/Vol] 215 mg/dL High 65-99 [facility] Glucose [Mass/Vol] 138 mg/dL High 65-99 [facility] Glucose [Mass/Vol] 206 mg/dL High 65-99 [facility] Glucose [Mass/Vol] 219 mg/dL High 65-99 [facility] Glucose [Mass/Vol] 217 mg/dL High 65-99 [facility] PROTIME AND INRon 06-24-2024 INR Coag (PPP) [Relative time] 1.2 {INR} High 0.8-1.1 [facility] Comment on above: Performed By: #### P INR ####[facility] [place] [facility] ([id number])[address], [place] [address] PT Coag (PPP) [Time] 14.4 s High 9.8-13.2 [facility] Comment on above: Performed By: #### P INR ####[facility] [place] [facility] ([id number])[address] [place] [address] URINALYSISon 06-24-2024 Bilirubin Ql (U) Negative Normal NEG [facility] Comment on above: Performed By: #### U A ####[facility] [place] [facility] ([id number])[address] [address] BLOOD/HGB Large Abnormal NEG [facility] Comment on above: Performed By: #### U A ####[facility] [place] [facility] ([id number])[address] [address] Color (U) YELLOW Normal YELLOW [facility] Comment on above: Performed By: #### U A ####[facility] [place] [facility] ([id number])[address] [address] Glucose Ql (U) Negative Normal NEG [facility] Comment on above: Performed By: #### U A ####[facility] [place] [facility] ([id number])[address] [address] Ketones Ql (U) Negative Normal NEG [facility] Comment on above: Performed By: #### U A ####[facility] [place] [facility] ([id number])[address] [address] Leukocyte esterase Test strip Ql (U) Negative Normal NEG [facility] Comment on above: Performed By: #### U A ####[facility] [place] ([id number])[address] [address], [place] [address] Nitrite Ql (U) Negative Normal NEG [facility] Comment on above: Performed By: #### U A ####[facility] [place] ([id number])[address], [place] [address] pH (U) 6.0 [pH] Normal 5.0-8.5 [facility] Comment on above: Performed By: #### U A ####[facility] [place] ([id number])[address] [address], [place] [address] Protein Ql (U) 50 mg/dL Abnormal NEG [facility] Comment on above: Performed By: #### U A ####[facility] ([id number])[address] [address], [place] [address] R.B.CELLS 141 /hpf High 0-5 [facility] Comment on above: Performed By: #### U A ####[facility] [place] ([id number])[address] [address], [place] [address] Specific gravity (U) [Rel density] 1.022 Normal 1.003-1.035 [facility] Comment on above: Performed By: #### U A ####[facility] ([id number])[address] [address] [place] [address] SQUAMOUS EPITHELIUM <1 Normal 0-5 [facility] Comment on above: Performed By: #### U A ####[facility] ([id number])[address] [address], [place] [address] TURBIDITY CLEAR Normal CLEAR [facility] Comment on above: Performed By: #### U A ####[facility] ([id number])[address] [address] [place] [address] Urobilinogen Qn (U) 2 {Man'U}/dL High <1.1 [facility] Comment on above: Performed By: #### U A ####[facility] ([id number])[address] [address] [place] [address] W.B.CELLS 4 /hpf Normal 0-5 [facility] Comment on above: Performed By: #### U A ####[facility] ([id number])[address] [address] URINE CULTUREon 06-24-2024 Bacteria identified Cx Nom (U) CULTURE RESULTS NO GROWTH AT <1000 CFU/mL Normal [facility] Comment on above: Performed By: #### 6 30-4 ####[facility] ([id number])[address] [address] [place] [address] BASIC METABOLIC PANLon 06-23 Anion gap [Moles/Vol] 11 mmol/L Normal 5-15 [facility] Comment on above: Performed By: #### C BCA, BMP ####[facility] ([id number])[address] [address] [place] [address] Calcium [Mass/Vol] 9.2 mg/dL Normal 8.5-10.5 [facility] Comment on above: Performed By: #### C BCA, BMP ####[facility] ([id number])[address] [address] [place] [address] Chloride [Moles/Vol] 107 mmol/L Normal 98-109 [facility] Comment on above: Performed By: #### C BCA, BMP ####[facility] ([id number])[address] [address] [place] [address] CO2 [Moles/Vol] 24 mmol/L Normal 22-32 [facility] Comment on above: Performed By: #### C BCA, BMP ####[facility] ([id number])[address] [address] Creatinine [Mass/Vol] 0.73 mg/dL Normal 0.60-1.30 [facility] Comment on above: Result Comment: METH OD TRACEABLE TO IDMS STANDARD Performed By: #### C BCA, BMP ####[facility] ([id number])[address] [address] eGFR (CKD-EPI) NON-RACE DEPENDENT >90 Normal >59 [facility] Comment on above: Result Comment: Repo rted eGFR is based on theCKD-EPI 2020 equation that doesnot use a race coefficient. Performed By: #### C BCA, BMP ####[facility] ([id number])[address] [address] Glucose [Mass/Vol] 141 mg/dL High 65-99 [facility] Comment on above: Performed By: #### C BCA, BMP ####[facility] ([id number])[address] [address] Potassium [Moles/Vol] 4.0 mmol/L Normal 3.5-5.0 [facility] Comment on above: Performed By: #### C BCA, BMP ####[facility] ([id number])[address] [address] Sodium [Moles/Vol] 142 mmol/L Normal 134-146 [facility] Comment on above: Performed By: #### C BCA, BMP ####[facility] ([id number])[address] [address] Urea nitrogen [Mass/Vol] 30 mg/dL High 5-27 [facility] Comment on above: Performed By: #### C BCA, BMP ####[facility] ([id number])[address] [address] CBC AND AUTO DIFFon 06-23-20 24 ABSOLUTE BASOPHIL 0.0 X10E9/L Normal 0.0-0.2 [facility] Comment on above: Performed By: #### Ivon GIRALDO, BMP ####[facility] ([id number])[address], [address] [place] [address] ABSOLUTE NEUTROPHIL 9.8 X10E9/L High 1.5-6.6 [facility] Comment on above: Performed By: #### C ENZO, BMP ####[facility] ([id number])[address], [address] [place] [address] Basophils/100 WBC (Bld) 0.2 % Normal [facility] Comment on above: Performed By: #### C ENZO, BMP ####[facility] ([id number])[address] [address] [place] [address] Eosinophils (Bld) [#/Vol] 0.1 10*3/uL Normal 0.0-0.4 [facility] Comment on above: Performed By: #### C ENZO, BMP ####[facility] ([id number])[address], [address] [place] [address] Eosinophils/100 WBC (Bld) 0.6 % Normal [facility] Comment on above: Performed By: #### Ivon GIRALDO, BMP ####[facility] ([id number])[address] [address] [place] [address] Erythrocyte distribution width (RBC) [Ratio] 15.4 % High 11.5-15.0 [facility] Comment on above: Performed By: #### C ENZO, BMP ####[facility] ([id number])[address] [address] [place] [address] [address] Hematocrit (Bld) [Volume fraction] 41.3 % Normal 39-49 [facility] Comment on above: Performed By: #### C ENZO, BMP ####[facility] [place] [facility] ([id number])[address], [place] [address] Hemoglobin (Bld) [Mass/Vol] 13.6 g/dL Normal 13.0-17.0 [facility] Comment on above: Performed By: #### C BCA, BMP ####[facility] [place] [facility] ([id number])[address], [address] [address] Lymphocytes (Bld) [#/Vol] 1.5 10*3/uL Normal 1.0-3.5 [facility] Comment on above: Performed By: #### C ENZO, BMP ####[facility] [place] [facility] ([id number])[address] [address] Lymphocytes/100 WBC (Bld) 12.1 % Normal [facility] Comment on above: Performed By: #### C ENZO, BMP ####[facility] [place] [facility] ([id number])[address] [address] MCH (RBC) [Entitic mass] 30.4 pg Normal 27-34 [facility] Comment on above: Performed By: #### C ENZO, BMP ####[facility] [place] [facility] ([id number])[address], [address] [address] MCHC (RBC) [Mass/Vol] 33.0 g/dL Normal 32-36 [facility] Comment on above: Performed By: #### C BCA, BMP ####[facility] [place] [facility] ([id number])[address] [place] [address] MCV (RBC) [Entitic vol] 92 fL Normal 80-100 [facility] Comment on above: Performed By: #### C BCA, BMP ####[facility] [place] [facility] ([id number])[address], [address] [place] [address] Monocytes (Bld) [#/Vol] 0.7 10*3/uL Normal 0-0.9 [facility] Comment on above: Performed By: #### C ENZO, BMP ####[facility] [place] [facility] ([id number])[address], [place] [address] Monocytes/100 WBC (Bld) 6.1 % Normal [facility] Comment on above: Performed By: #### C BCA, BMP ####[facility] [place] [facility] ([id number])[address], [address], [place] [address] Neutrophils/100 WBC (Bld) 81.0 % Normal [facility] Comment on above: Performed By: #### C ENZO, BMP ####[facility] [place] [facility] ([id number])[address], [address], [place] [address] Platelet mean volume (Bld) [Entitic vol] 8.7 fL Normal 7-12 [facility] Comment on above: Performed By: #### C ENZO, BMP ####[facility] [place] [facility] ([id number])[address], [address], [place] [address] Platelets (Bld) [#/Vol] 212 10*3/uL Normal 150-450 [facility] Comment on above: Performed By: #### C ENZO, BMP ####[facility] [place] [facility] ([id number])[address], [address], [place] [address] RBC COUNT 4.47 X10E12/L Normal 4.10-5.70 [facility] Comment on above: Performed By: #### C BCA, BMP ####[facility] [place] [facility] ([id number])[address], [address], [place] [address] WBC (Bld) [#/Vol] 12.1 10*3/uL High 4.0-11.0 [facility] Comment on above: Performed By: #### C BCA, BMP ####[facility] [place] [facility] ([id number])[address], [address] [place] [address]RAIN WO CONTon CT BRAIN WO CONT Normal [facility] CT BRAIN WO CONT Normal [facility] Glucose Glucometer (BldC) [M ass/Vol]on 06-23-2024 Glucose [Mass/Vol] 229 mg/dL High 65-99 [facility] Glucose [Mass/Vol] 195 mg/dL High 65-99 [facility] Glucose [Mass/Vol] 206 mg/dL High 65-99 [facility] Glucose [Mass/Vol] 222 mg/dL High 65-99 [facility] Glucose [Mass/Vol] 112 mg/dL High 65-99 [facility] Glucose [Mass/Vol] 194 mg/dL High 65-99 [facility] Glucose [Mass/Vol] 226 mg/dL High 65-99 [facility] Magnesium Ionized ISE (Bld) [Moles/Vol]on 06-23-2024 Magnesium [Moles/Vol] 0.59 mmol/L Normal 0.45-0.74 [facility] Comment on above: Result Comment: NEW REFERENCE RANGE Performed By: #### 7 3572-0 ####[facility] [place] [facility] ([id number])[address], [address] [place] [address] PHOSPHORUSon 06-23-2024 Phosphate [Mass/Vol] 3.4 mg/dL Normal 2.4-4.9 [facility] Comment on above: Performed By: #### 2 777-1 ####[facility] [place] [facility] ([id number])[address], [address] [place] [address] BASIC METABOLIC PANLon 06-22 Anion gap [Moles/Vol] 8 mmol/L Normal 5-15 [facility] Comment on above: Performed By: #### 3 274-8, CBCA, BMP ####[facility] [place] [facility] ([id number])[address], [address] [place] [address] Calcium [Mass/Vol] 9.0 mg/dL Normal 8.5-10.5 [facility] Comment on above: Performed By: #### 3 274-8, CBCA, BMP ####[facility] [place] [facility] ([id number])[address], [address] [place] [address] Chloride [Moles/Vol] 106 mmol/L Normal 98-109 [facility] Comment on above: Performed By: #### 3 274-8, CBCA, BMP ####[facility] [place] [facility] ([id number])[address] [address] [place] [address] CO2 [Moles/Vol] 27 mmol/L Normal 22-32 [facility] Comment on above: Performed By: #### 3 274-8, CBCA, BMP ####[facility] [place] [facility] ([id number])[address] [address] [place] [address] Creatinine [Mass/Vol] 0.73 mg/dL Normal 0.60-1.30 [facility] Comment on above: Result Comment: METH OD TRACEABLE TO IDMS STANDARD Performed By: #### 3 274-8, CBCA, BMP ####[facility] [place] [facility] ([id number])[address] [address] [place] [address] eGFR (CKD-EPI) NON-RACE DEPENDENT >90 Normal >59 [facility] Comment on above: Result Comment: Repo rted eGFR is based on theCKD-EPI 2020 equation that doesnot use a race coefficient. Performed By: #### 3 274-8, CBCA, BMP ####[facility] [place] [facility] ([id number])[address] [address], [place] [address] Glucose [Mass/Vol] 185 mg/dL High 65-99 [facility] Comment on above: Performed By: #### 3 274-8, CBCA, BMP ####[facility] [place] [facility] ([id number])[address] [address] Potassium [Moles/Vol] 4.0 mmol/L Normal 3.5-5.0 [facility] Comment on above: Performed By: #### 3 274-8, CBCA, BMP ####[facility] [place] [facility] ([id number])[address], [place] [address] Sodium [Moles/Vol] 141 mmol/L Normal 134-146 [facility] Comment on above: Performed By: #### 3 274-8, CBCA, BMP ####[facility] [place] [facility] ([id number])[address], [address], [place] [address] Urea nitrogen [Mass/Vol] 28 mg/dL High 5-27 [facility] Comment on above: Performed By: #### 3 274-8, CBCA, BMP ####[facility] [place] [facility] ([id number])[address], [address] [place] [address] CBC AND AUTO DIFFon 06-22-20 24 ABSOLUTE BASOPHIL 0.0 X10E9/L Normal 0.0-0.2 [facility] Comment on above: Performed By: #### 3 274-8, CBCA, BMP ####[facility] [place] [facility] ([id number])[address] [address] [place] [address] ABSOLUTE NEUTROPHIL 8.1 X10E9/L High 1.5-6.6 [facility] Comment on above: Performed By: #### 3 274-8, CBCA, BMP ####[facility] [place] [facility] ([id number])[address] [address] [place] [address] Basophils/100 WBC (Bld) 0.3 % Normal [facility] Comment on above: Performed By: #### 3 274-8, CBCA, BMP ####[facility] [place] [facility] ([id number])[address], [address] [place] [address] Eosinophils (Bld) [#/Vol] 0.2 10*3/uL Normal 0.0-0.4 [facility] Comment on above: Performed By: #### 3 274-8, CBCA, BMP ####[facility] [place] [facility] ([id number])[address], [address] [place] [address] Eosinophils/100 WBC (Bld) 1.5 % Normal [facility] Comment on above: Performed By: #### 3 274-8, CBCA, BMP ####[facility] [place] [facility] ([id number])[address] [address] [place] [address] Erythrocyte distribution width (RBC) [Ratio] 15.3 % High 11.5-15.0 [facility] Comment on above: Performed By: #### 3 274-8, CBCA, BMP ####[facility] [place] [facility] ([id number])[address] [address], [place] [address] Hematocrit (Bld) [Volume fraction] 39.2 % Normal 39-49 [facility] Comment on above: Performed By: #### 3 274-8, CBCA, BMP ####[facility] [place] [facility] ([id number])[address] [address] [place] [address] Hemoglobin (Bld) [Mass/Vol] 13.4 g/dL Normal 13.0-17.0 [facility] Comment on above: Performed By: #### 3 274-8, CBCA, BMP ####[facility] [place] [facility] ([id number])[address] [address] [place] [address] Lymphocytes (Bld) [#/Vol] 1.3 10*3/uL Normal 1.0-3.5 [facility] Comment on above: Performed By: #### 3 274-8, CBCA, BMP ####[facility] [place] [facility] ([id number])[address] [address] [place] [address] Lymphocytes/100 WBC (Bld) 13.1 % Normal [facility] Comment on above: Performed By: #### 3 274-8, CBCA, BMP ####[facility] [place] [facility] ([id number])[address], [address], [place] [address] MCH (RBC) [Entitic mass] 31.4 pg Normal 27-34 [facility] Comment on above: Performed By: #### 3 274-8, CBCA, BMP ####[facility] [place] [facility] ([id number])[address], [place] [address] MCHC (RBC) [Mass/Vol] 34.1 g/dL Normal 32-36 [facility] Comment on above: Performed By: #### 3 274-8, CBCA, BMP ####[facility] [place] [facility] ([id number])[address], [address], [place] [address] MCV (RBC) [Entitic vol] 92 fL Normal 80-100 [facility] Comment on above: Performed By: #### 3 274-8, CBCA, BMP ####[facility] [place] [facility] ([id number])[address], [address] [place] [address] Monocytes (Bld) [#/Vol] 0.6 10*3/uL Normal 0-0.9 [facility] Comment on above: Performed By: #### 3 274-8, CBCA, BMP ####[facility] [place] [facility] ([id number])[address], [address] [place] [address] Monocytes/100 WBC (Bld) 5.6 % Normal [facility] Comment on above: Performed By: #### 3 274-8, CBCA, BMP ####[facility] [place] [facility] ([id number])[address] [place] [address] Neutrophils/100 WBC (Bld) 79.5 % Normal [facility] Comment on above: Performed By: #### 3 274-8, CBCA, BMP ####[facility] [place] [facility] ([id number])[address], [address] [place] [address] Platelet mean volume (Bld) [Entitic vol] 8.8 fL Normal 7-12 [facility] Comment on above: Performed By: #### 3 274-8, CBCA, BMP ####[facility] [place] [facility] ([id number])[address], [address] [address] Platelets (Bld) [#/Vol] 193 10*3/uL Normal 150-450 [facility] Comment on above: Performed By: #### 3 274-8, CBCA, BMP ####[facility] [place] [facility] ([id number])[address], [address] [place] [address] RBC COUNT 4.26 X10E12/L Normal 4.10-5.70 [facility] Comment on above: Performed By: #### 3 274-8, CBCA, BMP ####[facility] [place] ([id number])[address], [address] [address] WBC (Bld) [#/Vol] 10.2 10*3/uL Normal 4.0-11.0 [facility] Comment on above: Performed By: #### 3 274-8, CBCA, BMP ####[facility] [place] ([id number])[address], [address] [address] Glucose Glucometer (dC) [M ass/Vol]on 06-22-2024 Glucose [Mass/Vol] 211 mg/dL High 65-99 [facility] Glucose [Mass/Vol] 238 mg/dL High 65-99 [facility] Glucose [Mass/Vol] 176 mg/dL High 65-99 [facility] Glucose [Mass/Vol] 208 mg/dL High 65-99 [facility] Glucose [Mass/Vol] 186 mg/dL High 65-99 [facility] Glucose [Mass/Vol] 166 mg/dL High 65-99 [facility] Glucose [Mass/Vol] 164 mg/dL High 65-99 [facility] Glucose [Mass/Vol] 226 mg/dL High 65-99 [facility] Glucose [Mass/Vol] 241 mg/dL High 65-99 [facility] Heparin unfractionated Chrom ogenic method Qn (PPP)on 06-22-2024 ANTI XA UFH 0.39 IU/mL Normal 0.30-0.70 [facility] Comment on above: Result Comment: Opti mal time for testing is 6 hrs post dosageThis test is specific for monitoring patientson UFH, and is not recommended for use withother Anti-Xa medications. Performed By: #### 3 274-8 ####[facility] [place] [facility] ([id number])[address], [address] [place] [address] ANTI XA UFH 0.28 IU/mL Low 0.30-0.70 [facility] Comment on above: Result Comment: Opti mal time for testing is 6 hrs post dosageThis test is specific for monitoring patientson UFH, and is not recommended for use withother Anti-Xa medications. Performed By: #### 3 274-8, CBCA, BMP ####[facility] [place] [facility] ([id number])[address], [address] [place] [address] Lactate (P chauncey) [Moles/Vol]o n 06-22-2024 LACTATE W/REFLEX 1.1 mmol/L Normal 0.4-2.0 [facility] Comment on above: Result Comment: Resu lt did not trigger repeat Lactate,re-order if needed. Performed By: #### 3 2133-1 ####[facility] [place] [facility] ([id number])[address], [place] [address] BASIC METABOLIC PANLon 06-21 Anion gap [Moles/Vol] 8 mmol/L Normal 5-15 [facility] Comment on above: Performed By: #### C BCA, BMP ####[facility] [place] [facility] ([id number])[address], [address] [place] [address] Calcium [Mass/Vol] 9.0 mg/dL Normal 8.5-10.5 [facility] Comment on above: Performed By: #### C ENZO, BMP ####[facility] [place] [facility] ([id number])[address] [address], [place] [address] Chloride [Moles/Vol] 109 mmol/L Normal 98-109 [facility] Comment on above: Performed By: #### C ENZO, BMP ####[facility] [place] [facility] ([id number])[address] [address] [place] [address] CO2 [Moles/Vol] 28 mmol/L Normal 22-32 [facility] Comment on above: Performed By: #### C ENZO, BMP ####[facility] [place] [facility] ([id number])[address] [address] [place] [address] Creatinine [Mass/Vol] 0.83 mg/dL Normal 0.60-1.30 [facility] Comment on above: Result Comment: METH OD TRACEABLE TO IDMS STANDARD Performed By: #### C ENZO, BMP ####[facility] [place] [facility] ([id number])[address] [address] eGFR (CKD-EPI) NON-RACE DEPENDENT >90 Normal >59 [facility] Comment on above: Result Comment: Repo rted eGFR is based on theCKD-EPI 2020 equation that doesnot use a race coefficient. Performed By: #### C BCA, BMP ####[facility] [place] [facility] ([id number])[address] [address], [place] [address] Glucose [Mass/Vol] 124 mg/dL High 65-99 [facility] Comment on above: Performed By: #### C BCA, BMP ####[facility] [place] [facility] ([id number])[address] [address], [place] [address] Potassium [Moles/Vol] 4.2 mmol/L Normal 3.5-5.0 [facility] Comment on above: Performed By: #### C BCA, BMP ####[facility] [place] [facility] ([id number])[address], [place] [address] Sodium [Moles/Vol] 145 mmol/L Normal 134-146 [facility] Comment on above: Performed By: #### C BCA, BMP ####[facility] [place] [facility] ([id number])[address], [place] [address] Urea nitrogen [Mass/Vol] 29 mg/dL High 5-27 [facility] Comment on above: Performed By: #### C BCA, BMP ####[facility] [place] [facility] ([id number])[address], [place] [address] CBC AND AUTO DIFFon 06-21-20 24 ABSOLUTE BASOPHIL 0.1 X10E9/L Normal 0.0-0.2 [facility] Comment on above: Performed By: #### C BCA, BMP ####[facility] [place] [facility] ([id number])[address], [place] [address] ABSOLUTE NEUTROPHIL 8.9 X10E9/L High 1.5-6.6 [facility] Comment on above: Performed By: #### C BCA, BMP ####[facility] [place] [facility] ([id number])[address], [place] [address] Basophils/100 WBC (Bld) 0.7 % Normal [facility] Comment on above: Performed By: #### C BCA, BMP ####[facility] [place] [facility] ([id number])[address], [place] [address] Eosinophils (Bld) [#/Vol] 0.2 10*3/uL Normal 0.0-0.4 [facility] Comment on above: Performed By: #### C BCA, BMP ####[facility] [place] [facility] ([id number])[address], [place] [address] Eosinophils/100 WBC (Bld) 1.4 % Normal [facility] Comment on above: Performed By: #### C ENZO, BMP ####[facility] [place] [facility] ([id number])[address] [address], [place] [address] Erythrocyte distribution width (RBC) [Ratio] 15.5 % High 11.5-15.0 [facility] Comment on above: Performed By: #### C BCA, BMP ####[facility] [place] [facility] ([id number])[address] [address], [place] [address] Hematocrit (Bld) [Volume fraction] 41.1 % Normal 39-49 [facility] Comment on above: Performed By: #### C ENZO, BMP ####[facility] [place] [facility] ([id number])[address] [address], [place] [address] Hemoglobin (Bld) [Mass/Vol] 13.4 g/dL Normal 13.0-17.0 [facility] Comment on above: Performed By: #### C ENZO, BMP ####[facility] [place] [facility] ([id number])[address] [address] Lymphocytes (Bld) [#/Vol] 1.7 10*3/uL Normal 1.0-3.5 [facility] Comment on above: Performed By: #### C BCA, BMP ####[facility] [place] [facility] ([id number])[address] [address] Lymphocytes/100 WBC (Bld) 14.6 % Normal [facility] Comment on above: Performed By: #### C BCA, BMP ####[facility] [place] [facility] ([id number])[address] [address] MCH (RBC) [Entitic mass] 30.2 pg Normal 27-34 [facility] Comment on above: Performed By: #### C BCA, BMP ####[facility] [place] [facility] ([id number])[address], [place] [address] MCHC (RBC) [Mass/Vol] 32.6 g/dL Normal 32-36 [facility] Comment on above: Performed By: #### Ivon GIRALDO, BMP ####[facility] [place] [facility] ([id number])[address], [place] [address] MCV (RBC) [Entitic vol] 93 fL Normal 80-100 [facility] Comment on above: Performed By: #### C ENZO, BMP ####[facility] [place] [facility] ([id number])[address] [place] [address] Monocytes (Bld) [#/Vol] 0.7 10*3/uL Normal 0-0.9 [facility] Comment on above: Performed By: #### C ENZO, BMP ####[facility] [place] [facility] ([id number])[address], [place] [address] Monocytes/100 WBC (Bld) 6.0 % Normal [facility] Comment on above: Performed By: #### Ivon GIRALDO, BMP ####[facility] [place] [facility] ([id number])[address], [place] [address] Neutrophils/100 WBC (Bld) 77.3 % Normal [facility] Comment on above: Performed By: #### Ivon GIRALDO, BMP ####[facility] [place] [facility] ([id number])[address], [place] [address] Platelet mean volume (Bld) [Entitic vol] 9.5 fL Normal 7-12 [facility] Comment on above: Performed By: #### Ivon GIRALDO, BMP ####[facility] [place] [facility] ([id number])[address], [place] [address] Platelets (Bld) [#/Vol] 195 10*3/uL Normal 150-450 [facility] Comment on above: Performed By: #### C ENZO, BMP ####[facility] [place] [facility] ([id number])[address], [place] [address] RBC COUNT 4.44 X10E12/L Normal 4.10-5.70 [facility] Comment on above: Performed By: #### C BCA, BMP ####[facility] [place] [facility] ([id number])[address], [place] [address] WBC (Bld) [#/Vol] 11.5 10*3/uL High 4.0-11.0 [facility] Comment on above: Performed By: #### C BCA, BMP ####[facility] [place] [facility] ([id number])[address] [place] [address] CTV ABD AND PELVISon 06-12 CT CTV ABD AND PELVIS Normal [facility] Fibrin D-dimer DDU (PPP) [Ma ss/Vol]on 06-21-2024 D DIMER 3162 ng/mL DDU High <255 [facility] Comment on above: Result Comment: Resu lts >=255ng/mL DDU: Results may beindicative of the presence of VTE. The useof the Wells score and further diagnostictests should be considered. Elevated D-Dimerlevels can also be associated with DIC,neoplasm, , trauma and liver disease.Elevated levels of rheumatoid factor may leadto an overestimation of the D-Dimer level. Performed By: #### 4 8066-5, 3274-8 ####[facility] [place] [facility] ([id number])[address], [address] [place] [address] Glucose Glucometer (BldC) [M ass/Vol]on 06-21-2024 Glucose [Mass/Vol] 176 mg/dL High 65-99 [facility] Glucose [Mass/Vol] 144 mg/dL High 65-99 [facility] Glucose [Mass/Vol] 150 mg/dL High 65-99 [facility] Glucose [Mass/Vol] 205 mg/dL High 65-99 [facility] Glucose [Mass/Vol] 186 mg/dL High 65-99 [facility] Glucose [Mass/Vol] 160 mg/dL High 65-99 [facility] Heparin unfractionated Chrom ogenic method Qn (PPP)on 06-21-2024 ANTI XA UFH 0.34 IU/mL Normal 0.30-0.70 [facility] Comment on above: Result Comment: Opti mal time for testing is 6 hrs post dosageThis test is specific for monitoring patientson UFH, and is not recommended for use withother Anti-Xa medications. Performed By: #### 4 8066-5, 3274-8 ####[facility] ([id number])[address] [place] [address] ANTI XA UFH 0.34 IU/mL Normal 0.30-0.70 [facility] Comment on above: Result Comment: Opti mal time for testing is 6 hrs post dosageThis test is specific for monitoring patientson UFH, and is not recommended for use withother Anti-Xa medications. Performed By: #### 3 274-8 ####[facility] [place] [facility] ([id number])[address] [place] [address] XR ABDOMEN AP 1 VWon 024 XR ABDOMEN AP 1 VW Normal [facility] XR CHEST 1 VWon 06-21-2024 XR CHEST 1 VW Normal [facility] BASIC METABOLIC PANLon 06-20 Anion gap [Moles/Vol] 8 mmol/L Normal 5-15 [facility] Comment on above: Performed By: #### C BCA, BMP ####[facility] ([id number])[address], [address] [place] [address] Calcium [Mass/Vol] 9.1 mg/dL Normal 8.5-10.5 [facility] Comment on above: Performed By: #### C BCA, BMP ####[facility] ([id number])[address] [address] [place] [address] Chloride [Moles/Vol] 110 mmol/L High 98-109 [facility] Comment on above: Performed By: #### C ENZO, BMP ####[facility] ([id number])[address] [address] CO2 [Moles/Vol] 27 mmol/L Normal 22-32 [facility] Comment on above: Performed By: #### C ENZO, BMP ####[facility] ([id number])[address] [address] Creatinine [Mass/Vol] 0.79 mg/dL Normal 0.60-1.30 [facility] Comment on above: Result Comment: METH OD TRACEABLE TO IDMS STANDARD Performed By: #### C ENZO, BMP ####[facility] ([id number])[address] [address] eGFR (CKD-EPI) NON-RACE DEPENDENT >90 Normal >59 [facility] Comment on above: Result Comment: Repo rted eGFR is based on theCKD-EPI 2020 equation that doesnot use a race coefficient. Performed By: #### C ENZO, BMP ####[facility] ([id number])[address] [address] [place] [address] Glucose [Mass/Vol] 172 mg/dL High 65-99 [facility] Comment on above: Performed By: #### C ENZO, BMP ####[facility] ([id number])[address] [address] Potassium [Moles/Vol] 3.8 mmol/L Normal 3.5-5.0 [facility] Comment on above: Performed By: #### C ENZO, BMP ####[facility] ([id number])[address] [address] Sodium [Moles/Vol] 145 mmol/L Normal 134-146 [facility] Comment on above: Performed By: #### C BCA, BMP ####[facility] ([id number])[address], [address] [place] [address] Urea nitrogen [Mass/Vol] 29 mg/dL High 5-27 [facility] Comment on above: Performed By: #### C BCA, BMP ####[facility] ([id number])[address], [address] [place] [phone] CBC AND AUTO DIFFon 06-20-20 24 ABSOLUTE BASOPHIL 0.1 X10E9/L Normal 0.0-0.2 [facility] Comment on above: Performed By: #### C ENZO, BMP ####[facility] ([id number])[address], [address] [place] [address] ABSOLUTE NEUTROPHIL 8.5 X10E9/L High 1.5-6.6 [facility] Comment on above: Performed By: #### C BCA, BMP ####[facility] [place] [facility] ([id number])[address] [address], [place] [address] Basophils/100 WBC (Bld) 0.7 % Normal [facility] Comment on above: Performed By: #### C BCA, BMP ####[facility] [place] ([id number])[address] [address], [place] [address] Eosinophils (Bld) [#/Vol] 0.2 10*3/uL Normal 0.0-0.4 [facility] Comment on above: Performed By: #### C BCA, BMP ####[facility] [place] [facility] ([id number])[address] [address] [place] [address] Eosinophils/100 WBC (Bld) 1.4 % Normal [facility] Comment on above: Performed By: #### C BCA, BMP ####[facility] [place] [facility] ([id number])[address], [address] [place] [address] Erythrocyte distribution width (RBC) [Ratio] 15.3 % High 11.5-15.0 [facility] Comment on above: Performed By: #### Ivon GIRALDO, BMP ####[facility] [place] [facility] ([id number])[address] [address] Hematocrit (Bld) [Volume fraction] 39.9 % Normal 39-49 [facility] Comment on above: Performed By: #### C ENZO, BMP ####[facility] [place] [facility] ([id number])[address] [address] Hemoglobin (Bld) [Mass/Vol] 13.4 g/dL Normal 13.0-17.0 [facility] Comment on above: Performed By: #### Ivon GIRALDO, BMP ####[facility] [place] [facility] ([id number])[address] [address] Lymphocytes (Bld) [#/Vol] 1.4 10*3/uL Normal 1.0-3.5 [facility] Comment on above: Performed By: #### Ivon GIRALDO, BMP ####[facility] [place] [facility] ([id number])[address] [address] Lymphocytes/100 WBC (Bld) 13.1 % Normal [facility] Comment on above: Performed By: #### Ivon GIRALDO, BMP ####[facility] [place] [facility] ([id number])[address] [address] MCH (RBC) [Entitic mass] 31.1 pg Normal 27-34 [facility] Comment on above: Performed By: #### Ivon GIRALDO, BMP ####[facility] ([id number])[address] [address] [place] [address] MCHC (RBC) [Mass/Vol] 33.6 g/dL Normal 32-36 [facility] Comment on above: Performed By: #### Ivon GIRALDO, BMP ####[facility] [place] [facility] ([id number])[address], [address], [place] [address] MCV (RBC) [Entitic vol] 93 fL Normal 80-100 [facility] Comment on above: Performed By: #### C ENZO, BMP ####[facility] [place] [facility] ([id number])[address], [place] [address] Monocytes (Bld) [#/Vol] 0.6 10*3/uL Normal 0-0.9 [facility] Comment on above: Performed By: #### C ENZO, BMP ####[facility] [place] [facility] ([id number])[address], [place] [address] Monocytes/100 WBC (Bld) 5.6 % Normal [facility] Comment on above: Performed By: #### Ivon GIRALDO, BMP ####[facility] [place] [facility] ([id number])[address], [place] [address] Neutrophils/100 WBC (Bld) 79.2 % Normal [facility] Comment on above: Performed By: #### Ivon GIRALDO, BMP ####[facility] [place] [facility] ([id number])[address], [place] [address] Platelet mean volume (Bld) [Entitic vol] 9.5 fL Normal 7-12 [facility] Comment on above: Performed By: #### Ivon GIRALDO, BMP ####[facility] [place] [facility] ([id number])[address], [address], [place] [address] Platelets (Bld) [#/Vol] 172 10*3/uL Normal 150-450 [facility] Comment on above: Performed By: #### Ivon GIRALDO, BMP ####[facility] [place] [facility] ([id number])[address], [address], [place] [address] RBC COUNT 4.31 X10E12/L Normal 4.10-5.70 [facility] Comment on above: Performed By: #### C ENZO, TK ####[facility] [place] [facility] ([id number])[address] [facility] [address] [place] [address] WBC (Bld) [#/Vol] 10.7 10*3/uL Normal 4.0-11.0 [facility] Comment on above: Performed By: #### C ENZO, BMP ####[facility] ([id number])[address], [address] [place] [address] Glucose Glucometer (BldC) [M ass/Vol]on 06-20-2024 Glucose [Mass/Vol] 151 mg/dL High 65-99 [facility] Glucose [Mass/Vol] 230 mg/dL High 65-99 [facility] Glucose [Mass/Vol] 235 mg/dL High 65-99 [facility] Glucose [Mass/Vol] 179 mg/dL High 65-99 [facility] Glucose [Mass/Vol] 145 mg/dL High 65-99 [facility] Glucose [Mass/Vol] 183 mg/dL High 65-99 [facility] Glucose [Mass/Vol] 166 mg/dL High 65-99 [facility] Heparin unfractionated Chrom ogenic method Qn (PPP)on 06-20-2024 ANTI XA UFH 0.28 IU/mL Low 0.30-0.70 [facility] Comment on above: Result Comment: Opti mal time for testing is 6 hrs post dosageThis test is specific for monitoring patientson UFH, and is not recommended for use withother Anti-Xa medications. Performed By: #### 3 274-8 ####[facility] [place] [facility] ([id number])[address], [address] [place] [address] ANTI XA UFH 0.26 IU/mL Low 0.30-0.70 [facility] Comment on above: Result Comment: Opti mal time for testing is 6 hrs post dosageThis test is specific for monitoring patientson UFH, and is not recommended for use withother Anti-Xa medications. Performed By: #### 3 274-8 ####[facility] [place] [facility] ([id number])[address], [place] [address] URINALYSISon 06-20-2024 Bilirubin Ql (U) Negative Normal NEG [facility] Comment on above: Performed By: #### U A ####[facility] [place] [facility] ([id number])[address], [address] [place] [address] BLOOD/HGB Trace Abnormal NEG [facility] Comment on above: Performed By: #### U A ####[facility] [place] [facility] ([id number])[address], [address] [place] [address] Color (U) YELLOW Normal YELLOW [facility] Comment on above: Performed By: #### U A ####[facility] [place] [facility] ([id number])[address], [address] [place] [address] Glucose Ql (U) Negative Normal NEG [facility] Comment on above: Performed By: #### U A ####[facility] [place] [facility] ([id number])[address], [address] [place] [address] Hyaline casts LM Ql (Urine sed) 1 /lpf Normal 0-2 [facility] Comment on above: Performed By: #### U A ####[facility] [place] [facility] ([id number])[address], [address] [place] [address] Ketones Ql (U) Negative Normal NEG [facility] Comment on above: Performed By: #### U A ####[facility] [place] ([id number])[address], [address] [place] [address] Leukocyte esterase Test strip Ql (U) Negative Normal NEG [facility] Comment on above: Performed By: #### U A ####[facility] [place] [facility] ([id number])[address], [place] [address] MUCOUS PRESENT Abnormal NONE [facility] Comment on above: Performed By: #### U A ####[facility] [place] [facility] ([id number])[address] [address] [place] [address] Nitrite Ql (U) Negative Normal NEG [facility] Comment on above: Performed By: #### U A ####[facility] ([id number])[address] [address] [place] [address] pH (U) 6.5 [pH] Normal 5.0-8.5 [facility] Comment on above: Performed By: #### U A ####[facility] [place] [facility] ([id number])[address] [address] [place] [address] Protein Ql (U) Trace Abnormal NEG [facility] Comment on above: Performed By: #### U A ####[facility] [place] ([id number])[address] [address] [place] [address] R.B.CELLS 6 /hpf High 0-5 [facility] Comment on above: Performed By: #### U A ####[facility] [place] ([id number])[address] [address] [place] [address] Specific gravity (U) [Rel density] 1.024 Normal 1.003-1.035 [facility] Comment on above: Performed By: #### U A ####[facility] [place] ([id number])[address] [address] [place] [address] SQUAMOUS EPITHELIUM <1 Normal 0-5 [facility] Comment on above: Performed By: #### U A ####[facility] [place] ([id number])[address] [address] [place] [address] TURBIDITY CLEAR Normal CLEAR [facility] Comment on above: Performed By: #### U A ####[facility] [place] ([id number])[address] [address] [address] Urobilinogen Qn (U) 12 {Man'U}/dL High <1.1 [facility] Comment on above: Performed By: #### U A ####[facility] [place] [facility] ([id number])[address] [address] W.B.CELLS <1 Normal 0-5 [facility] Comment on above: Performed By: #### U A ####[facility] [place] [facility] ([id number])[address], [place] [address] XR ABDOMEN AP 1 VWon 024 XR ABDOMEN AP 1 VW Normal [facility] BASIC METABOLIC PANLon 06-19 Anion gap [Moles/Vol] 10 mmol/L Normal 5-15 [facility] Comment on above: Performed By: #### Ivon BCA, 3274-8, BMP ####[facility] [place] [facility] ([id number])[address], [address] [address] Calcium [Mass/Vol] 9.2 mg/dL Normal 8.5-10.5 [facility] Comment on above: Performed By: #### Ivon BCA, 3274-8, BMP ####[facility] [place] [facility] ([id number])[address], [place] [address] Chloride [Moles/Vol] 109 mmol/L Normal 98-109 [facility] Comment on above: Performed By: #### C BCA, 3274-8, BMP ####[facility] [place] [facility] ([id number])[address], [address] [address] CO2 [Moles/Vol] 26 mmol/L Normal 22-32 [facility] Comment on above: Performed By: #### C BCA, 3274-8, BMP ####[facility] [place] [facility] ([id number])[address], [address], [place] [address] Creatinine [Mass/Vol] 0.80 mg/dL Normal 0.60-1.30 [facility] Comment on above: Result Comment: METH OD TRACEABLE TO IDMS STANDARD Performed By: #### C ENZO, 3274-05, BMP ####[facility] [place] [facility] ([id number])[address], [address], [place] [address] eGFR (CKD-EPI) NON-RACE DEPENDENT >90 Normal >59 [facility] Comment on above: Result Comment: Repo rted eGFR is based on theCKD-EPI 2020 equation that doesnot use a race coefficient. Performed By: #### C ENZO, 3274-05, BMP ####[facility] [place] [facility] ([id number])[address], [address] [place] [address] Glucose [Mass/Vol] 203 mg/dL High 65-99 [facility] Comment on above: Performed By: #### Ivon GIRALDO 3274-05, BMP ####[facility] ([id number])[address] [address] [place] [address] Potassium [Moles/Vol] 3.8 mmol/L Normal 3.5-5.0 [facility] Comment on above: Performed By: #### Ivon GIRALDO, 3274-05, BMP ####[facility] [place] ([id number])[address] [address] [place] [address] Sodium [Moles/Vol] 145 mmol/L Normal 134-146 [facility] Comment on above: Performed By: #### C ENZO, 3274-05, BMP ####[facility] [place] ([id number])[address] [address] Urea nitrogen [Mass/Vol] 24 mg/dL Normal 5-27 [facility] Comment on above: Performed By: #### Ivon GIRALDO, 3273-, BMP ####[facility] [place] ([id number])[address] [address] CBC AND AUTO DIFFon 06-19-20 24 ABSOLUTE BASOPHIL 0.1 X10E9/L Normal 0.0-0.2 [facility] Comment on above: Performed By: #### Ivon GIRALDO 3274-05, BMP ####[facility] ([id number])[address] [address] ABSOLUTE NEUTROPHIL 10.6 X10E9/L High 1.5-6.6 [facility] Comment on above: Performed By: #### Ivon GIRALDO 3274-05, BMP ####[facility] [place] ([id number])[address] [address] Basophils/100 WBC (Bld) 1.0 % Normal [facility] Comment on above: Performed By: #### Ivon GIRALDO 3274-05, BMP ####[facility] ([id number])[address] [address] Eosinophils (Bld) [#/Vol] 0.1 10*3/uL Normal 0.0-0.4 [facility] Comment on above: Performed By: #### Ivon GIRALDO 3274-05, BMP ####[facility] ([id number])[address] [address] Eosinophils/100 WBC (Bld) 0.8 % Normal [facility] Comment on above: Performed By: #### Ivon GIRALDO 3274-05, BMP ####[facility] [place] ([id number])[address] [address] Erythrocyte distribution width (RBC) [Ratio] 14.9 % Normal 11.5-15.0 [facility] Comment on above: Performed By: #### Ivon GIRALDO 3274-05, BMP ####[facility] [place] [facility] ([id number])[address] [address] Hematocrit (Bld) [Volume fraction] 41.9 % Normal 39-49 [facility] Comment on above: Performed By: #### Ivon GIRALDO, 3274-05, BMP ####[facility] [place] [facility] ([id number])[address], [place] [address] Hemoglobin (Bld) [Mass/Vol] 14.2 g/dL Normal 13.0-17.0 [facility] Comment on above: Performed By: #### Ivon GIRALDO, 3274-05, BMP ####[facility] [place] [facility] ([id number])[address], [place] [address] Lymphocytes (Bld) [#/Vol] 1.6 10*3/uL Normal 1.0-3.5 [facility] Comment on above: Performed By: #### Ivon GIRALDO, 3274-05, BMP ####[facility] [place] [facility] ([id number])[address], [place] [address] Lymphocytes/100 WBC (Bld) 11.9 % Normal [facility] Comment on above: Performed By: #### Ivon GIRALDO, 3274-05, BMP ####[facility] [place] [facility] ([id number])[address] [address] [place] [address] MCH (RBC) [Entitic mass] 30.6 pg Normal 27-34 [facility] Comment on above: Performed By: #### Ivon GIRALDO 3274-05, BMP ####[facility] [place] [facility] ([id number])[address], [place] [address] MCHC (RBC) [Mass/Vol] 33.8 g/dL Normal 32-36 [facility] Comment on above: Performed By: #### Ivon GIRALDO, 3274-05, BMP ####[facility] [place] [facility] ([id number])[address], [address] [place] [address] MCV (RBC) [Entitic vol] 91 fL Normal 80-100 [facility] Comment on above: Performed By: #### Ivon GIRALDO, 3274-05, BMP ####[facility] [place] [facility] ([id number])[address] [address] Monocytes (Bld) [#/Vol] 0.6 10*3/uL Normal 0-0.9 [facility] Comment on above: Performed By: #### Ivon GIRALDO, 3274-05, BMP ####[facility] [place] [facility] ([id number])[address], [place] [address] Monocytes/100 WBC (Bld) 4.7 % Normal [facility] Comment on above: Performed By: #### Ivon GIRALDO 3274-05, BMP ####[facility] [place] [facility] ([id number])[address], [place] [address] Neutrophils/100 WBC (Bld) 81.6 % Normal [facility] Comment on above: Performed By: #### Ivon GIRALDO 3274-05, BMP ####[facility] [place] [facility] ([id number])[address] [address] Platelet mean volume (Bld) [Entitic vol] 9.6 fL Normal 7-12 [facility] Comment on above: Performed By: #### Ivon GIRALDO 3274-05, BMP ####[facility] [place] [facility] ([id number])[address] [address] Platelets (Bld) [#/Vol] 169 10*3/uL Normal 150-450 [facility] Comment on above: Performed By: #### Ivon GIRALDO, 3274-05, BMP ####[facility] [place] [facility] ([id number])[address], [place] [address] RBC COUNT 4.63 X10E12/L Normal 4.10-5.70 [facility] Comment on above: Performed By: #### Ivon GIRALDO, 3274-05, BMP ####[facility] [place] [facility] ([id number])[address], [place] [address] WBC (Bld) [#/Vol] 13.0 10*3/uL High 4.0-11.0 [facility] Comment on above: Performed By: #### Ivon GIRALDO, 3274-8, BMP ####[facility] [place] [facility] ([id number])[address], [address] [place] [address] Glucose Glucometer (BldC) [M ass/Vol]on 06-19-2024 Glucose [Mass/Vol] 159 mg/dL High 65-99 [facility] Glucose [Mass/Vol] 172 mg/dL High 65-99 [facility] Glucose [Mass/Vol] 142 mg/dL High 65-99 [facility] Glucose [Mass/Vol] 191 mg/dL High 65-99 [facility] Glucose [Mass/Vol] 163 mg/dL High 65-99 [facility] Glucose [Mass/Vol] 212 mg/dL High 65-99 [facility] Glucose [Mass/Vol] 182 mg/dL High 65-99 [facility] Glucose [Mass/Vol] 189 mg/dL High 65-99 [facility] Glucose [Mass/Vol] 177 mg/dL High 65-99 [facility] Heparin unfractionated Chrom ogenic method Qn (PPP)on 06-19-2024 ANTI XA UFH 0.37 IU/mL Normal 0.30-0.70 [facility] Comment on above: Result Comment: Opti mal time for testing is 6 hrs post dosageThis test is specific for monitoring patientson UFH, and is not recommended for use withother Anti-Xa medications. Performed By: #### Ivon GIRALDO, 3274-8, BMP ####[facility] [place] [facility] ([id number])[address], [address] [place] [address] BASIC METABOLIC PANLon 06-18 Anion gap [Moles/Vol] 7 mmol/L Normal 5-15 [facility] Comment on above: Performed By: #### B MP ####[facility] [place] [facility] ([id number])[address] [address], [place] [address] Calcium [Mass/Vol] 8.9 mg/dL Normal 8.5-10.5 [facility] Comment on above: Performed By: #### B MP ####[facility] [place] [facility] ([id number])[address] [address] [address] Chloride [Moles/Vol] 111 mmol/L High 98-109 [facility] Comment on above: Performed By: #### B MP ####[facility] [place] [facility] ([id number])[address] [address] [address] CO2 [Moles/Vol] 26 mmol/L Normal 22-32 [facility] Comment on above: Performed By: #### B MP ####[facility] [place] [facility] ([id number])[address] [address], [place] [address] Creatinine [Mass/Vol] 0.88 mg/dL Normal 0.60-1.30 [facility] Comment on above: Result Comment: METH OD TRACEABLE TO IDMS STANDARD Performed By: #### B MP ####[facility] [place] [facility] ([id number])[address] [address], [place] [address] eGFR (CKD-EPI) NON-RACE DEPENDENT >90 Normal >59 [facility] Comment on above: Result Comment: Repo rted eGFR is based on theCKD-EPI 2020 equation that doesnot use a race coefficient. Performed By: #### B MP ####[facility] [place] [facility] ([id number])[address] [address] [place] [address] Glucose [Mass/Vol] 218 mg/dL High 65-99 [facility] Comment on above: Performed By: #### B MP ####[facility] [place] [facility] ([id number])[address] [address] [address] Potassium [Moles/Vol] 4.9 mmol/L Normal 3.5-5.0 [facility] Comment on above: Result Comment: SPEC IMEN HEMOLYZED, RESULTS INCREASEDMODERATELY HEMOLYZED Performed By: #### B MP ####[facility] [place] [facility] ([id number])[address], [place] [address] Sodium [Moles/Vol] 144 mmol/L Normal 134-146 [facility] Comment on above: Performed By: #### B MP ####[facility] [place] [facility] ([id number])[address] [address], [place] [address] Urea nitrogen [Mass/Vol] 26 mg/dL Normal 5-27 [facility] Comment on above: Performed By: #### B MP ####[facility] [place] [facility] ([id number])[address] [address] [place] [address] CBC AND AUTO DIFFon 06-18-20 24 ABSOLUTE BASOPHIL 0.0 X10E9/L Normal 0.0-0.2 [facility] Comment on above: Performed By: #### C BCA ####[facility] [place] [facility] ([id number])[address] [address] [place] [address] ABSOLUTE NEUTROPHIL 11.3 X10E9/L High 1.5-6.6 [facility] Comment on above: Performed By: #### C BCA ####[facility] [place] [facility] ([id number])[address] [address] [place] [address] Basophils/100 WBC (Bld) 0.4 % Normal [facility] Comment on above: Performed By: #### C BCA ####[facility] [place] [facility] ([id number])[address] [address] [place] [address] Eosinophils (Bld) [#/Vol] 0.1 10*3/uL Normal 0.0-0.4 [facility] Comment on above: Performed By: #### C BCA ####[facility] [place] [facility] ([id number])[address] [address] Eosinophils/100 WBC (Bld) 0.4 % Normal [facility] Comment on above: Performed By: #### C BCA ####[facility] [place] [facility] ([id number])[address], [place] [address] Erythrocyte distribution width (RBC) [Ratio] 15.4 % High 11.5-15.0 [facility] Comment on above: Performed By: #### C BCA ####[facility] [place] [facility] ([id number])[address] [address] Hematocrit (Bld) [Volume fraction] 41.5 % Normal 39-49 [facility] Comment on above: Performed By: #### C BCA ####[facility] [place] [facility] ([id number])[address] [address] Hemoglobin (Bld) [Mass/Vol] 13.7 g/dL Normal 13.0-17.0 [facility] Comment on above: Performed By: #### C BCA ####[facility] [place] [facility] ([id number])[address] [address] Lymphocytes (Bld) [#/Vol] 1.8 10*3/uL Normal 1.0-3.5 [facility] Comment on above: Performed By: #### C BCA ####[facility] ([id number])[address] [address] Lymphocytes/100 WBC (Bld) 12.6 % Normal [facility] Comment on above: Performed By: #### C BCA ####[facility] [place] [facility] ([id number])[address], [place] [address] MCH (RBC) [Entitic mass] 30.1 pg Normal 27-34 [facility] Comment on above: Performed By: #### C BCA ####[facility] [place] [facility] ([id number])[address], [place] [address] MCHC (RBC) [Mass/Vol] 32.9 g/dL Normal 32-36 [facility] Comment on above: Performed By: #### C BCA ####[facility] [place] [facility] ([id number])[address], [place] [address] MCV (RBC) [Entitic vol] 92 fL Normal 80-100 [facility] Comment on above: Performed By: #### C BCA ####[facility] [place] [facility] ([id number])[address], [place] [address] Monocytes (Bld) [#/Vol] 0.9 10*3/uL Normal 0-0.9 [facility] Comment on above: Performed By: #### C BCA ####[facility] [place] [facility] ([id number])[address], [place] [address] Monocytes/100 WBC (Bld) 6.2 % Normal [facility] Comment on above: Performed By: #### C BCA ####[facility] [place] [facility] ([id number])[address], [address], [place] [address] Neutrophils/100 WBC (Bld) 80.4 % Normal [facility] Comment on above: Performed By: #### C BCA ####[facility] [place] [facility] ([id number])[address], [address], [place] [address] Platelet mean volume (Bld) [Entitic vol] 9.5 fL Normal 7-12 [facility] Comment on above: Performed By: #### C BCA ####[facility] [place] [facility] ([id number])[address], [place] [address] Platelets (Bld) [#/Vol] 158 10*3/uL Normal 150-450 [facility] Comment on above: Performed By: #### C BCA ####[facility] [place] [facility] ([id number])[address], [address] [place] [address] RBC COUNT 4.53 X10E12/L Normal 4.10-5.70 [facility] Comment on above: Performed By: #### C BCA ####[facility] [place] [facility] ([id number])[address], [address] [address] WBC (Bld) [#/Vol] 14.0 10*3/uL High 4.0-11.0 [facility] Comment on above: Performed By: #### C BCA ####[facility] [place] [facility] ([id number])[address], [address] [address] Glucose Glucometer (BldC) [M ass/Vol]on 06-18-2024 Glucose [Mass/Vol] 114 mg/dL High 65-99 [facility] Glucose [Mass/Vol] 192 mg/dL High 65-99 [facility] Glucose [Mass/Vol] 218 mg/dL High 65-99 [facility] Glucose [Mass/Vol] 197 mg/dL High 65-99 [facility] Glucose [Mass/Vol] 175 mg/dL High 65-99 [facility] Glucose [Mass/Vol] 160 mg/dL High 65-99 [facility] Heparin unfractionated Chrom ogenic method Qn (PPP)on 06-18-2024 ANTI XA UFH 0.33 IU/mL Normal 0.30-0.70 [facility] Comment on above: Result Comment: Opti mal time for testing is 6 hrs post dosageThis test is specific for monitoring patientson UFH, and is not recommended for use withother Anti-Xa medications. Performed By: #### 3 [id number] ####[facility] [place] [facility] ([id number])[address], [address] [place] [address] XR CHEST 1 VWon 06-18-2024 XR CHEST 1 VW Normal [facility] BASIC METABOLIC PANLon 06-17 Anion gap [Moles/Vol] 11 mmol/L Normal 5-15 [facility] Comment on above: Performed By: #### C BCA, BMP ####[facility] ([id number])[address] [address] Calcium [Mass/Vol] 9.2 mg/dL Normal 8.5-10.5 [facility] Comment on above: Performed By: #### C BCA, BMP ####[facility] ([id number])[address] [address], [place] [address] Chloride [Moles/Vol] 114 mmol/L High 98-109 [facility] Comment on above: Performed By: #### C BCA, BMP ####[facility] ([id number])[address] [address] [place] [address], [place] [address] CO2 [Moles/Vol] 23 mmol/L Normal 22-32 [facility] Comment on above: Performed By: #### C BCA, BMP ####[facility] ([id number])[address] [address] [address] Creatinine [Mass/Vol] 0.88 mg/dL Normal 0.60-1.30 [facility] Comment on above: Result Comment: METH OD TRACEABLE TO IDMS STANDARD Performed By: #### C BCA, BMP ####[facility] ([id number])[address] [address], [place] [address] eGFR (CKD-EPI) NON-RACE DEPENDENT >90 Normal >59 [facility] Comment on above: Result Comment: Repo rted eGFR is based on theCKD-EPI 2020 equation that doesnot use a race coefficient. Performed By: #### C BCA, BMP ####[facility] ([id number])[address] [address] [address] Glucose [Mass/Vol] 264 mg/dL High 65-99 [facility] Comment on above: Performed By: #### C BCA, BMP ####[facility] ([id number])[address] [address] Potassium [Moles/Vol] 3.9 mmol/L Normal 3.5-5.0 [facility] Comment on above: Performed By: #### C BCA, BMP ####[facility] ([id number])[address], [address] [address] Sodium [Moles/Vol] 148 mmol/L High 134-146 [facility] Comment on above: Performed By: #### C BCA, BMP ####[facility] ([id number])[address], [place] [address] Urea nitrogen [Mass/Vol] 29 mg/dL High 5-27 [facility] Comment on above: Performed By: #### C BCA, BMP ####[facility] ([id number])[address], [address] [address] CBC AND AUTO DIFFon 06-17-20 24 ABSOLUTE BASOPHIL 0.0 X10E9/L Normal 0.0-0.2 [facility] Comment on above: Performed By: #### C BCA, BMP ####[facility] ([id number])[address], [address] [address] ABSOLUTE NEUTROPHIL 12.1 X10E9/L High 1.5-6.6 [facility] Comment on above: Performed By: #### C BCA, BMP ####[facility] ([id number])[address] [address] Basophils/100 WBC (Bld) 0.3 % Normal [facility] Comment on above: Performed By: #### C BCA, BMP ####[facility] ([id number])[address], [address] [address] Eosinophils (Bld) [#/Vol] 0.0 10*3/uL Normal 0.0-0.4 [facility] Comment on above: Performed By: #### C ENZO, BMP ####[facility] ([id number])[address] [address] Eosinophils/100 WBC (Bld) 0.3 % Normal [facility] Comment on above: Performed By: #### C ENZO, BMP ####[facility] ([id number])[address], [place] [address] Erythrocyte distribution width (RBC) [Ratio] 15.1 % High 11.5-15.0 [facility] Comment on above: Performed By: #### C ENZO, BMP ####[facility] ([id number])[address] [address] [address] Hematocrit (Bld) [Volume fraction] 44.5 % Normal 39-49 [facility] Comment on above: Performed By: #### C ENZO, BMP ####[facility] ([id number])[address] [address] Hemoglobin (Bld) [Mass/Vol] 14.6 g/dL Normal 13.0-17.0 [facility] Comment on above: Performed By: #### C ENZO, BMP ####[facility] ([id number])[address] [address], [place] [address] Lymphocytes (Bld) [#/Vol] 1.3 10*3/uL Normal 1.0-3.5 [facility] Comment on above: Performed By: #### C ENZO, BMP ####[facility] ([id number])[address] [address] [address] Lymphocytes/100 WBC (Bld) 8.7 % Normal [facility] Comment on above: Performed By: #### C ENZO, BMP ####[facility] ([id number])[address], [address] [address] MCH (RBC) [Entitic mass] 30.4 pg Normal 27-34 [facility] Comment on above: Performed By: #### C ENZO, BMP ####[facility] ([id number])[address] [address] MCHC (RBC) [Mass/Vol] 32.9 g/dL Normal 32-36 [facility] Comment on above: Performed By: #### C ENZO, BMP ####[facility] ([id number])[address] [address] MCV (RBC) [Entitic vol] 92 fL Normal 80-100 [facility] Comment on above: Performed By: #### C ENZO, BMP ####[facility] ([id number])[address] [address] Monocytes (Bld) [#/Vol] 1.0 10*3/uL High 0-0.9 [facility] Comment on above: Performed By: #### C ENZO, BMP ####[facility] ([id number])[address] [address] Monocytes/100 WBC (Bld) 6.7 % Normal [facility] Comment on above: Performed By: #### C ENZO, BMP ####[facility] ([id number])[address] [address] Neutrophils/100 WBC (Bld) 84.0 % Normal [facility] Comment on above: Performed By: #### C ENZO, BMP ####[facility] ([id number])[address], [address], [place] [address] Platelet mean volume (Bld) [Entitic vol] 9.6 fL Normal 7-12 [facility] Comment on above: Performed By: #### C ENZO, BMP ####[facility] ([id number])[address], [address] [place] [address] Platelets (Bld) [#/Vol] 141 10*3/uL Low 150-450 [facility] Comment on above: Performed By: #### Ivon GIRALDO, BMP ####[facility] ([id number])[address], [address] [place] [address] RBC COUNT 4.81 X10E12/L Normal 4.10-5.70 [facility] Comment on above: Performed By: #### Ivon GIRALDO, BMP ####[facility] ([id number])[address], [address] [place] [address] WBC (Bld) [#/Vol] 14.4 10*3/uL High 4.0-11.0 [facility] Comment on above: Performed By: #### Ivon GIRALDO, BMP ####[facility] ([id number])[address], [address] [address] [place] SWALLOW MOTILITY FUNCTION on 06-17-2024 FL SWALLOW MOTILITY FUNCTION Normal [facility] Glucose Glucometer (BldC) [M ass/Vol]on 06-17-2024 Glucose [Mass/Vol] 213 mg/dL High 65-99 [facility] Glucose [Mass/Vol] 234 mg/dL High 65-99 [facility] Glucose [Mass/Vol] 220 mg/dL High 65-99 [facility] Glucose [Mass/Vol] 241 mg/dL High 65-99 [facility] Glucose [Mass/Vol] 250 mg/dL High 65-99 [facility] Glucose [Mass/Vol] 206 mg/dL High 65-99 [facility] Heparin unfractionated Chrom ogenic method Qn (PPP)on 06-17-2024 ANTI XA UFH 0.36 IU/mL Normal 0.30-0.70 [facility] Comment on above: Result Comment: Opti mal time for testing is 6 hrs post dosageThis test is specific for monitoring patientson UFH, and is not recommended for use withother Anti-Xa medications. Performed By: #### 3 274-8 ####[facility] ([id number])[address], [place] [address] ANTI XA UFH 0.30 IU/mL Normal 0.30-0.70 [facility] Comment on above: Result Comment: Opti mal time for testing is 6 hrs post dosageThis test is specific for monitoring patientson UFH, and is not recommended for use withother Anti-Xa medications. Performed By: #### 3 274-8 ####[facility] ([id number])[address] [address] BASIC METABOLIC PANLon 06-16 Anion gap [Moles/Vol] 10 mmol/L Normal 5-15 [facility] Comment on above: Performed By: #### C BCA, BMP ####[facility] ([id number])[address], [address] [address] Calcium [Mass/Vol] 8.9 mg/dL Normal 8.5-10.5 [facility] Comment on above: Performed By: #### C BCA, BMP ####[facility] ([id number])[address], [address] [address] Chloride [Moles/Vol] 113 mmol/L High 98-109 [facility] Comment on above: Performed By: #### C BCA, BMP ####[facility] ([id number])[address] [address] CO2 [Moles/Vol] 22 mmol/L Normal 22-32 [facility] Comment on above: Performed By: #### C BCA, BMP ####[facility] ([id number])[address], [address] [place] [address] Creatinine [Mass/Vol] 0.91 mg/dL Normal 0.60-1.30 [facility] Comment on above: Result Comment: METH OD TRACEABLE TO IDMS STANDARD Performed By: #### C ENZO, BMP ####[facility] ([id number])[address] [address], [place] [address] eGFR (CKD-EPI) NON-RACE DEPENDENT >90 Normal >59 [facility] Comment on above: Result Comment: Repo rted eGFR is based on theCKD-EPI 2020 equation that doesnot use a race coefficient. Performed By: #### C ENZO, BMP ####[facility] ([id number])[address] [address] [place] [address], [place] [address] Glucose [Mass/Vol] 277 mg/dL High 65-99 [facility] Comment on above: Performed By: #### C ENZO, BMP ####[facility] ([id number])[address] [address] [place] [address] Potassium [Moles/Vol] 3.9 mmol/L Normal 3.5-5.0 [facility] Comment on above: Performed By: #### C ENZO, BMP ####[facility] ([id number])[address] [place] [address] Sodium [Moles/Vol] 145 mmol/L Normal 134-146 [facility] Comment on above: Performed By: #### C ENZO, BMP ####[facility] ([id number])[address] [address] Urea nitrogen [Mass/Vol] 32 mg/dL High 5-27 [facility] Comment on above: Performed By: #### C ENZO, BMP ####[facility] ([id number])[address] [address], [place] [address] CBC AND AUTO DIFFon 06-16-20 24 ABSOLUTE BASOPHIL 0.1 X10E9/L Normal 0.0-0.2 [facility] Comment on above: Performed By: #### C BCA, BMP ####[facility] ([id number])[address], [place] [address] ABSOLUTE NEUTROPHIL 10.3 X10E9/L High 1.5-6.6 [facility] Comment on above: Performed By: #### C BCA, BMP ####[facility] ([id number])[address] [address], [place] [address] Basophils/100 WBC (Bld) 0.6 % Normal [facility] Comment on above: Performed By: #### C BCA, BMP ####[facility] ([id number])[address] [address] [place] [address] Eosinophils (Bld) [#/Vol] 0.0 10*3/uL Normal 0.0-0.4 [facility] Comment on above: Performed By: #### C BCA, BMP ####[facility] ([id number])[address] [address] [place] [address] Eosinophils/100 WBC (Bld) 0.2 % Normal [facility] Comment on above: Performed By: #### C BCA, BMP ####[facility] ([id number])[address] [address] [place] [address] Erythrocyte distribution width (RBC) [Ratio] 15.2 % High 11.5-15.0 [facility] Comment on above: Performed By: #### C BCA, BMP ####[facility] ([id number])[address] [address] [place] [address] Hematocrit (Bld) [Volume fraction] 45.1 % Normal 39-49 [facility] Comment on above: Performed By: #### C BCA, BMP ####[facility] ([id number])[address] [place] [address] Hemoglobin (Bld) [Mass/Vol] 14.7 g/dL Normal 13.0-17.0 [facility] Comment on above: Performed By: #### C ENZO, BMP ####[facility] ([id number])[address], [place] [address] Lymphocytes (Bld) [#/Vol] 1.4 10*3/uL Normal 1.0-3.5 [facility] Comment on above: Performed By: #### C ENZO, BMP ####[facility] ([id number])[address], [address] [place] [address] Lymphocytes/100 WBC (Bld) 10.9 % Normal [facility] Comment on above: Performed By: #### C ENZO, BMP ####[facility] ([id number])[address], [place] [address] MCH (RBC) [Entitic mass] 30.1 pg Normal 27-34 [facility] Comment on above: Performed By: #### C ENZO, BMP ####[facility] ([id number])[address], [place] [address] MCHC (RBC) [Mass/Vol] 32.5 g/dL Normal 32-36 [facility] Comment on above: Performed By: #### C ENZO, BMP ####[facility] ([id number])[address] [address] [place] [address], [place] [address] MCV (RBC) [Entitic vol] 93 fL Normal 80-100 [facility] Comment on above: Performed By: #### C BCA, BMP ####[facility] ([id number])[address] [address], [place] [address] Monocytes (Bld) [#/Vol] 1.0 10*3/uL High 0-0.9 [facility] Comment on above: Performed By: #### C ENZO, BMP ####[facility] ([id number])[address], [address], [place] [address] Monocytes/100 WBC (Bld) 8.0 % Normal [facility] Comment on above: Performed By: #### C ENZO, BMP ####[facility] ([id number])[address], [address], [place] [address] Neutrophils/100 WBC (Bld) 80.3 % Normal [facility] Comment on above: Performed By: #### C ENZO, BMP ####[facility] ([id number])[address], [address], [place] [address] Platelet mean volume (Bld) [Entitic vol] 9.4 fL Normal 7-12 [facility] Comment on above: Performed By: #### Ivon GIRALDO, BMP ####[facility] ([id number])[address] [place] [address] Platelets (Bld) [#/Vol] 150 10*3/uL Normal 150-450 [facility] Comment on above: Performed By: #### Ivon GIRALDO, BMP ####[facility] ([id number])[address], [place] [address] RBC COUNT 4.87 X10E12/L Normal 4.10-5.70 [facility] Comment on above: Performed By: #### Ivon GIRALDO, BMP ####[facility] ([id number])[address], [place] [address] WBC (Bld) [#/Vol] 12.8 10*3/uL High 4.0-11.0 [facility] Comment on above: Performed By: #### C ENZO, BMP ####[facility] ([id number])[address], [address], [place] [address] Glucose Glucometer (BldC) [M ass/Vol]on 06-16-2024 Glucose [Mass/Vol] 219 mg/dL High 65-99 [facility] Glucose [Mass/Vol] 272 mg/dL High 65-99 [facility] Glucose [Mass/Vol] 279 mg/dL High 65-99 [facility] Glucose [Mass/Vol] 282 mg/dL High 65-99 [facility] Glucose [Mass/Vol] 279 mg/dL High 65-99 [facility] HEMOGLOBINon 06-16-2024 Hemoglobin (Bld) [Mass/Vol] 14.7 g/dL Normal 13.0-17.0 [facility] Comment on above: Performed By: #### 7 18-7, PLTCT, PINR, 03782-4 ####[facility] ([id number])[address], [address] [place] [address] Heparin unfractionated Chrom ogenic method Qn (PPP)on 06-16-2024 ANTI XA UFH 0.05 IU/mL Low 0.30-0.70 [facility] Comment on above: Result Comment: Opti mal time for testing is 6 hrs post dosageThis test is specific for monitoring patientson UFH, and is not recommended for use withother Anti-Xa medications. Performed By: #### 3 274-8 ####[facility] ([id number])[address], [address] [place] [address] Magnesium Ionized ISE (Bld) [Moles/Vol]on 06-16-2024 Magnesium [Moles/Vol] 0.67 mmol/L Normal 0.45-0.74 [facility] Comment on above: Result Comment: NEW REFERENCE RANGE Performed By: #### 7 3572-0 ####[facility] ([id number])[address], [address] [place] [address] PHOSPHORUSon 06-16-2024 Phosphate [Mass/Vol] 2.3 mg/dL Low 2.4-4.9 [facility] Comment on above: Performed By: #### 2 777-1 ####[facility] ([id number])[address], [address], [place] [address] PLATELET COUNT AND MPVon Platelet mean volume (Bld) [Entitic vol] 9.5 fL Normal 7-12 [facility] Comment on above: Performed By: #### 7 18-7, PLTCT, PINR, 76024-6 ####[facility] ([id number])[address], [address], [place] [address] Platelets (Bld) [#/Vol] 138 10*3/uL Low 150-450 [facility] Comment on above: Performed By: #### 7 18-7, PLTCT, PINR, 41396-1 ####[facility] ([id number])[address] [address] PROTIME AND INRon 06-16-2024 INR Coag (PPP) [Relative time] 1.2 {INR} High 0.8-1.1 [facility] Comment on above: Performed By: #### 7 18-7, PLTCT, PINR, 35537-7 ####[facility] ([id number])[address], [place] [address] PT Coag (PPP) [Time] 13.4 s High 9.8-13.2 [facility] Comment on above: Performed By: #### 7 18-7, PLTCT, PINR, 72439-4 ####[facility] ([id number])[address], [address], [place] [address] aPTT Coag (PPP) [Time]on aPTT Coag (Bld) [Time] 27 s Normal 26-37 [facility] Comment on above: Performed By: #### 7 18-7, PLTCT, PINR, 00679-3 ####[facility] ([id number])[address], [place] [address] BASIC METABOLIC PANLon 06-15 Anion gap [Moles/Vol] 10 mmol/L Normal 5-15 [facility] Comment on above: Performed By: #### C BCA, BMP ####[facility] ([id number])[address] [address], [place] [address] Calcium [Mass/Vol] 8.9 mg/dL Normal 8.5-10.5 [facility] Comment on above: Performed By: #### C BCA, BMP ####[facility] ([id number])[address] [address] Chloride [Moles/Vol] 115 mmol/L High 98-109 [facility] Comment on above: Performed By: #### C BCA, BMP ####[facility] ([id number])[address] [address] CO2 [Moles/Vol] 23 mmol/L Normal 22-32 [facility] Comment on above: Performed By: #### C BCA, BMP ####[facility] ([id number])[address] [address] Creatinine [Mass/Vol] 0.94 mg/dL Normal 0.60-1.30 [facility] Comment on above: Result Comment: METH OD TRACEABLE TO IDMS STANDARD Performed By: #### C BCA, BMP ####[facility] ([id number])[address] [address] GFR/1.73 sq M.predicted among non-blacks MDRD (S/P/Bld) [Vol rate/Area] 89 mL/min/{1.73_m2} Normal >59 [facility] Comment on above: Result Comment: Repo rted eGFR is based on theCKD-EPI 2020 equation that doesnot use a race coefficient. Performed By: #### C BCA, BMP ####[facility] ([id number])[address] [address] Glucose [Mass/Vol] 204 mg/dL High 65-99 [facility] Comment on above: Performed By: #### C ENZO, BMP ####[facility] ([id number])[address] [address] Potassium [Moles/Vol] 3.8 mmol/L Normal 3.5-5.0 [facility] Comment on above: Performed By: #### C ENZO, BMP ####[facility] ([id number])[address] [address] Sodium [Moles/Vol] 148 mmol/L High 134-146 [facility] Comment on above: Performed By: #### C ENZO, BMP ####[facility] ([id number])[address] [address] Urea nitrogen [Mass/Vol] 28 mg/dL High 5-27 [facility] Comment on above: Performed By: #### C ENZO, BMP ####[facility] ([id number])[address] [address] CBC AND AUTO DIFFon 06-15-20 24 ABSOLUTE BASOPHIL 0.1 X10E9/L Normal 0.0-0.2 [facility] Comment on above: Performed By: #### C ENZO, BMP ####[facility] ([id number])[address] [address] ABSOLUTE NEUTROPHIL 7.8 X10E9/L High 1.5-6.6 [facility] Comment on above: Performed By: #### C BCA, BMP ####[facility] ([id number])[address], [place] [address] Basophils/100 WBC (Bld) 1.1 % Normal [facility] Comment on above: Performed By: #### C BCA, BMP ####[facility] ([id number])[address] [address] Eosinophils (Bld) [#/Vol] 0.0 10*3/uL Normal 0.0-0.4 [facility] Comment on above: Performed By: #### C BCA, BMP ####[facility] ([id number])[address] [address] Eosinophils/100 WBC (Bld) 0.2 % Normal [facility] Comment on above: Performed By: #### C ENZO, BMP ####[facility] ([id number])[address] [address] Erythrocyte distribution width (RBC) [Ratio] 15.1 % High 11.5-15.0 [facility] Comment on above: Performed By: #### C ENZO, BMP ####[facility] ([id number])[address] [address] Hematocrit (Bld) [Volume fraction] 45.5 % Normal 39-49 [facility] Comment on above: Performed By: #### C BCA, BMP ####[facility] ([id number])[address] [address] Hemoglobin (Bld) [Mass/Vol] 15.1 g/dL Normal 13.0-17.0 [facility] Comment on above: Performed By: #### C BCA, BMP ####[facility] ([id number])[address] [address] Lymphocytes (Bld) [#/Vol] 1.2 10*3/uL Normal 1.0-3.5 [facility] Comment on above: Performed By: #### C BCA, BMP ####[facility] ([id number])[address] [place] [address] Lymphocytes/100 WBC (Bld) 11.8 % Normal [facility] Comment on above: Performed By: #### C ENZO, BMP ####[facility] ([id number])[address], [place] [address] MCH (RBC) [Entitic mass] 30.6 pg Normal 27-34 [facility] Comment on above: Performed By: #### C ENZO, BMP ####[facility] ([id number])[address], [place] [address] MCHC (RBC) [Mass/Vol] 33.2 g/dL Normal 32-36 [facility] Comment on above: Performed By: #### C ENZO, BMP ####[facility] ([id number])[address], [place] [address] MCV (RBC) [Entitic vol] 92 fL Normal 80-100 [facility] Comment on above: Performed By: #### C ENZO, BMP ####[facility] ([id number])[address] [address] [place] [address] Monocytes (Bld) [#/Vol] 0.7 10*3/uL Normal 0-0.9 [facility] Comment on above: Performed By: #### C ENZO, BMP ####[facility] ([id number])[address] [address] [place] [address] Monocytes/100 WBC (Bld) 7.5 % Normal [facility] Comment on above: Performed By: #### C ENZO, BMP ####[facility] ([id number])[address] [address] [place] [address] Neutrophils/100 WBC (Bld) 79.4 % Normal [facility] Comment on above: Performed By: #### C ENZO, BMP ####[facility] ([id number])[address], [place] [address] Platelet mean volume (Bld) [Entitic vol] 8.9 fL Normal 7-12 [facility] Comment on above: Performed By: #### Ivon GIRALDO, BMP ####[facility] ([id number])[address], [place] [address] Platelets (Bld) [#/Vol] 163 10*3/uL Normal 150-450 [facility] Comment on above: Performed By: #### Ivon GIRALDO, BMP ####[facility] ([id number])[address], [place] [address] RBC COUNT 4.94 X10E12/L Normal 4.10-5.70 [facility] Comment on above: Performed By: #### Ivon GIRALDO, BMP ####[facility] ([id number])[address] [place] [address] WBC (Bld) [#/Vol] 9.8 10*3/uL Normal 4.0-11.0 [facility] Comment on above: Performed By: #### Ivon GIRALDO, BMP ####[facility] ([id number])[address], [place] [address] Glucose Glucometer (dC) [M ass/Vol]on 06-15-2024 Glucose [Mass/Vol] 245 mg/dL High 65-99 [facility] Glucose [Mass/Vol] 219 mg/dL High 65-99 [facility] Glucose [Mass/Vol] 184 mg/dL High 65-99 [facility] Glucose [Mass/Vol] 156 mg/dL High 65-99 [facility] Glucose [Mass/Vol] 178 mg/dL High 65-99 [facility] Glucose [Mass/Vol] 167 mg/dL High 65-99 [facility] [facility] Glucose [Mass/Vol] 177 mg/dL High 65-99 [facility] PLATELET COUNT AND MPVon Platelet mean volume (Bld) [Entitic vol] 8.7 fL Normal 7-12 [facility] Comment on above: Performed By: #### P LTCT ####[facility] ([id number])[address] [address] Platelets (Bld) [#/Vol] 156 10*3/uL Normal 150-450 [facility] Comment on above: Performed By: #### P LTCT ####[facility] ([id number])[address], [address], [place] [address] XR CHEST 1 VWon 06-15-2024 XR CHEST 1 VW Normal [facility] BLOOD CULTUREon 06-14-2024 Bacteria identified Aer cx Nom (Bld) CULTURE RESULTS NO GROWTH 5 DAYS Normal [facility] Bacteria identified Aer cx Nom (Bld) CULTURE RESULTS NO GROWTH 5 DAYS Normal [facility] CBC AND AUTO DIFFon 06-14-20 ABSOLUTE BASOPHIL 0.0 X10E9/L Normal 0.0-0.2 [facility] Comment on above: Performed By: #### C BCA ####[facility] ([id number])[address], [address], [place] [address] ABSOLUTE NEUTROPHIL 9.6 X10E9/L High 1.5-6.6 [facility] Comment on above: Performed By: #### C BCA ####[facility] ([id number])[address], [place] [address] Basophils/100 WBC (Bld) 0.3 % Normal [facility] Comment on above: Performed By: #### C BCA ####[facility] ([id number])[address], [address] [address] Eosinophils (Bld) [#/Vol] 0.0 10*3/uL Normal 0.0-0.4 [facility] Comment on above: Performed By: #### C BCA ####[facility] ([id number])[address], [address], [place] [address] Eosinophils/100 WBC (Bld) 0.1 % Normal [facility] Comment on above: Performed By: #### C BCA ####[facility] ([id number])[address], [address], [place] [address] Erythrocyte distribution width (RBC) [Ratio] 15.3 % High 11.5-15.0 [facility] Comment on above: Performed By: #### C BCA ####[facility] ([id number])[address], [place] [address] Hematocrit (Bld) [Volume fraction] 46.3 % Normal 39-49 [facility] Comment on above: Performed By: #### C BCA ####[facility] ([id number])[address], [place] [address] Hemoglobin (Bld) [Mass/Vol] 15.4 g/dL Normal 13.0-17.0 [facility] Comment on above: Performed By: #### C BCA ####[facility] ([id number])[address], [place] [address] Lymphocytes (Bld) [#/Vol] 1.5 10*3/uL Normal 1.0-3.5 [facility] Comment on above: Performed By: #### C BCA ####[facility] ([id number])[address] [place] [address] Lymphocytes/100 WBC (Bld) 12.2 % Normal [facility] Comment on above: Performed By: #### C BCA ####[facility] ([id number])[address], [address], [place] [address] MCH (RBC) [Entitic mass] 30.3 pg Normal 27-34 [facility] Comment on above: Performed By: #### C BCA ####[facility] ([id number])[address], [place] [address] MCHC (RBC) [Mass/Vol] 33.3 g/dL Normal 32-36 [facility] Comment on above: Performed By: #### C BCA ####[facility] ([id number])[address], [place] [address] MCV (RBC) [Entitic vol] 91 fL Normal 80-100 [facility] Comment on above: Performed By: #### C BCA ####[facility] ([id number])[address], [place] [address] Monocytes (Bld) [#/Vol] 1.0 10*3/uL High 0-0.9 [facility] Comment on above: Performed By: #### C BCA ####[facility] ([id number])[address], [address], [place] [address] Monocytes/100 WBC (Bld) 8.0 % Normal [facility] Comment on above: Performed By: #### C BCA ####[facility] ([id number])[address], [place] [address] Neutrophils/100 WBC (Bld) 79.4 % Normal [facility] Comment on above: Performed By: #### C BCA ####[facility] ([id number])[address], [place] [address] Platelet mean volume (Bld) [Entitic vol] 8.9 fL Normal 7-12 [facility] Comment on above: Performed By: #### C BCA ####[facility] ([id number])[address], [place] [address] Platelets (Bld) [#/Vol] 183 10*3/uL Normal 150-450 [facility] Comment on above: Performed By: #### C BCA ####[facility] ([id number])[address], [place] [address] RBC COUNT 5.09 X10E12/L Normal 4.10-5.70 [facility] Comment on above: Performed By: #### C BCA ####[facility] ([id number])[address], [place] [address] WBC (Bld) [#/Vol] 12.0 10*3/uL High 4.0-11.0 [facility] Comment on above: Performed By: #### C BCA ####[facility] ([id number])[address] [address] COMPREHENSIVE METABOLIC PANE Sam 06-14-2024 Albumin [Mass/Vol] 3.5 g/dL Normal 3.2-5.3 [facility] Comment on above: Performed By: #### 7 18-7, CMP, 03380-4 ####[facility] ([id number])[address], [place] [address] ALP [Catalytic activity/Vol] 45 U/L Normal 39-130 [facility] Comment on above: Performed By: #### 7 18-7, CMP, 02737-4 ####[facility] ([id number])[address], [place] [address] ALT [Catalytic activity/Vol] 27 U/L Normal 0-40 [facility] Comment on above: Performed By: #### 7 18-7, CMP, 61552-7 ####[facility] ([id number])[address], [place] [address] Anion gap [Moles/Vol] 9 mmol/L Normal 5-15 [facility] Comment on above: Performed By: #### 7 18-7, CMP, 69373-3 ####[facility] ([id number])[address], [address], [place] [address] AST [Catalytic activity/Vol] 32 U/L Normal 0-41 [facility] Comment on above: Performed By: #### 7 18-7, CMP, 40367-7 ####[facility] ([id number])[address], [address], [place] [address] Bilirubin [Mass/Vol] 1.0 mg/dL Normal 0.3-1.2 [facility] Comment on above: Performed By: #### 7 18-7, CMP, 81695-5 ####[facility] ([id number])[address], [address], [place] [address] Calcium [Mass/Vol] 9.2 mg/dL Normal 8.5-10.5 [facility] Comment on above: Performed By: #### 7 18-7, CMP, ####[facility] ([id number])[address], [address], [place] [address] Chloride [Moles/Vol] 112 mmol/L High 98-109 [facility] Comment on above: Performed By: #### 7 18-7, CMP, ####[facility] ([id number])[address], [address], [place] [address] CO2 [Moles/Vol] 27 mmol/L Normal 22-32 [facility] Comment on above: Performed By: #### 7 18-7, CMP, 32424-8 ####[facility] ([id number])[address], [address], [place] [address] Creatinine [Mass/Vol] 1.17 mg/dL Normal 0.60-1.30 [facility] Comment on above: Result Comment: METH OD TRACEABLE TO IDMS STANDARD Performed By: #### 7 18-7, CMP, 70678-7 ####[facility] ([id number])[address], [address], [place] [address] GFR/1.73 sq M.predicted among non-blacks MDRD (S/P/Bld) [Vol rate/Area] 69 mL/min/{1.73_m2} Normal >59 [facility] Comment on above: Result Comment: Repo rted eGFR is based on theCKD-EPI 2020 equation that doesnot use a race coefficient. Performed By: #### 7 18-7, EUGENIO, 70817-4 ####[facility] ([id number])[address], [address], [place] [address] Glucose [Mass/Vol] 175 mg/dL High 65-99 [facility] Comment on above: Performed By: #### 7 18-7, EUGENIO, ####[facility] ([id number])[address], [address], [place] [address] Potassium [Moles/Vol] 4.1 mmol/L Normal 3.5-5.0 [facility] Comment on above: Performed By: #### 7 18-7, [facility], 89332-3 ####[facility] ([id number])[address], [address], [place] [address] Protein [Mass/Vol] 6.8 g/dL Normal 6.0-8.0 [facility] Comment on above: Performed By: #### 7 18-7, EUGENIO, 94389-0 ####[facility] ([id number])[address], [address], [place] [address] Sodium [Moles/Vol] 148 mmol/L High 134-146 [facility] Comment on above: Performed By: #### 7 18-7, CMP, ####[facility] ([id number])[address], [address], [place] [address] Urea nitrogen [Mass/Vol] 35 mg/dL High 5-27 [facility] Comment on above: Performed By: #### 7 18-7, [facility], 23898-0 ####[facility] ([id number])[address], [address], [place] [address] Glucose Glucometer (BldC) [M ass/Vol]on 06-14-2024 Glucose [Mass/Vol] 189 mg/dL High 65-99 [facility] Glucose [Mass/Vol] 160 mg/dL High 65-99 [facility] Glucose [Mass/Vol] 175 mg/dL High 65-99 [facility] Glucose [Mass/Vol] 181 mg/dL High 65-99 [facility] Glucose [Mass/Vol] 163 mg/dL High 65-99 [facility] Glucose [Mass/Vol] 174 mg/dL High 65-99 [facility] Glucose [Mass/Vol] 258 mg/dL High 65-99 [facility] HEMOGLOBINon 06-14-2024 Hemoglobin (Bld) [Mass/Vol] 15.4 g/dL Normal 13.0-17.0 [facility] Comment on above: Performed By: #### 7 18-7, [facility], ####[facility] ([id number])[address], [address], [place] [address] MAGNESIUMon 06-14-2024 Magnesium [Mass/Vol] 2.2 mg/dL Normal 1.8-2.6 [facility] Comment on above: Performed By: #### 7 18-7, [facility], 98250-7 ####[facility] ([id number])[address], [place] [address] URINALYSISon 06-14-2024 Bilirubin Ql (U) Negative Normal NEG [facility] Comment on above: Performed By: #### U A ####[facility] ([id number])[address], [address], [place] [address] BLOOD/HGB MODERATE Abnormal NEG [facility] Comment on above: Performed By: #### U A ####[facility] ([id number])[address] [address] Color (U) YELLOW Normal YELLOW [facility] Comment on above: Performed By: #### U A ####[facility] ([id number])[address] [address] Glucose Ql (U) Negative Normal NEG [facility] Comment on above: Performed By: #### U A ####[facility] ([id number])[address] [address] Ketones Ql (U) Negative Normal NEG [facility] Comment on above: Performed By: #### U A ####[facility] ([id number])[address] [address] Leukocyte esterase Test strip Ql (U) Negative Normal NEG [facility] Comment on above: Performed By: #### U A ####[facility] ([id number])[address], [place] [address] MUCOUS PRESENT Abnormal NONE [facility] Comment on above: Performed By: #### U A ####[facility] ([id number])[address] [address] Nitrite Ql (U) Negative Normal NEG [facility] Comment on above: Performed By: #### U A ####[facility] ([id number])[address] [address] pH (U) 5.5 [pH] Normal 5.0-8.5 [facility] Comment on above: Performed By: #### U A ####[facility] ([id number])[address], [place] [address] Protein Ql (U) 30 mg/dL Abnormal NEG [facility] Comment on above: Performed By: #### U A ####[facility] ([id number])[address] [address] R.B.CELLS 47 /hpf High 0-5 [facility] Comment on above: Performed By: #### U A ####[facility] ([id number])[address] [address] Specific gravity (U) [Rel density] 1.030 Normal 1.003-1.035 [facility] Comment on above: Performed By: #### U A ####[facility] ([id number])[address] [address] SQUAMOUS EPITHELIUM <1 Normal 0-5 [facility] Comment on above: Performed By: #### U A ####[facility] ([id number])[address] [address] TURBIDITY CLEAR Normal CLEAR [facility] Comment on above: Performed By: #### U A ####[facility] ([id number])[address] [address] Urobilinogen (U) [Mass/Vol] mg/dL Normal <1.1 [facility] Comment on above: Performed By: #### U A ####[facility] ([id number])[address] [address] W.B.CELLS 2 /hpf Normal 0-5 [facility] Comment on above: Performed By: #### U A ####[facility] ([id number])[address] [address] BASIC METABOLIC PANLon 06-13 Anion gap [Moles/Vol] 13 mmol/L Normal 5-15 [facility] Comment on above: Performed By: #### C BCA, BMP ####[facility] ([id number])[address] [address], [place] [address] Calcium [Mass/Vol] 9.4 mg/dL Normal 8.5-10.5 [facility] Comment on above: Performed By: #### C BCA, BMP ####[facility] ([id number])[address], [address] [place] [address] Chloride [Moles/Vol] 108 mmol/L Normal 98-109 [facility] Comment on above: Performed By: #### C ENZO, BMP ####[facility] ([id number])[address] [address] [place] [address] CO2 [Moles/Vol] 24 mmol/L Normal 22-32 [facility] Comment on above: Performed By: #### C ENZO, BMP ####[facility] ([id number])[address] [address] [place] [address] Creatinine [Mass/Vol] 1.10 mg/dL Normal 0.60-1.30 [facility] Comment on above: Result Comment: METH OD TRACEABLE TO IDMS STANDARD Performed By: #### C ENZO, BMP ####[facility] ([id number])[address] [address] GFR/1.73 sq M.predicted among non-blacks MDRD (S/P/Bld) [Vol rate/Area] 74 mL/min/{1.73_m2} Normal >59 [facility] Comment on above: Result Comment: Repo rted eGFR is based on theCKD-EPI 2020 equation that doesnot use a race coefficient. Performed By: #### C BCA, BMP ####[facility] ([id number])[address] [address] [place] [address] Glucose [Mass/Vol] 330 mg/dL High 65-99 [facility] Comment on above: Performed By: #### C BCA, BMP ####[facility] ([id number])[address], [place] [address] Potassium [Moles/Vol] 4.4 mmol/L Normal 3.5-5.0 [facility] Comment on above: Performed By: #### C BCA, BMP ####[facility] ([id number])[address], [place] [address] Sodium [Moles/Vol] 145 mmol/L Normal 134-146 [facility] Comment on above: Performed By: #### C ENZO, BMP ####[facility] ([id number])[address], [place] [address] Urea nitrogen [Mass/Vol] 30 mg/dL High 5-27 [facility] Comment on above: Performed By: #### C ENZO, BMP ####[facility] ([id number])[address], [place] [address] CBC AND AUTO DIFFon 06-13-20 24 ABSOLUTE BASOPHIL 0.1 X10E9/L Normal 0.0-0.2 [facility] Comment on above: Performed By: #### C ENZO, BMP ####[facility] ([id number])[address], [place] [address] ABSOLUTE NEUTROPHIL 9.0 X10E9/L High 1.5-6.6 [facility] Comment on above: Performed By: #### C BCA, BMP ####[facility] ([id number])[address], [address], [place] [address] Basophils/100 WBC (Bld) 0.5 % Normal [facility] Comment on above: Performed By: #### C BCA, BMP ####[facility] ([id number])[address], [place] [address] Eosinophils (Bld) [#/Vol] 0.0 10*3/uL Normal 0.0-0.4 [facility] Comment on above: Performed By: #### C ENZO, BMP ####[facility] ([id number])[address] [address] [place] [address] Eosinophils/100 WBC (Bld) 0.1 % Normal [facility] Comment on above: Performed By: #### C ENZO, BMP ####[facility] ([id number])[address] [address] [place] [address] Erythrocyte distribution width (RBC) [Ratio] 15.3 % High 11.5-15.0 [facility] Comment on above: Performed By: #### C ENZO, BMP ####[facility] ([id number])[address] [address], [place] [address] Hematocrit (Bld) [Volume fraction] 45.7 % Normal 39-49 [facility] Comment on above: Performed By: #### C ENZO, BMP ####[facility] ([id number])[address] [address], [place] [address] Hemoglobin (Bld) [Mass/Vol] 15.4 g/dL Normal 13.0-17.0 [facility] Comment on above: Performed By: #### C ENZO, BMP ####[facility] ([id number])[address] [address] Lymphocytes (Bld) [#/Vol] 1.3 10*3/uL Normal 1.0-3.5 [facility] Comment on above: Performed By: #### C ENZO, BMP ####[facility] ([id number])[address] [address] Lymphocytes/100 WBC (Bld) 11.1 % Normal [facility] Comment on above: Performed By: #### C ENZO, BMP ####[facility] ([id number])[address] [address] MCH (RBC) [Entitic mass] 30.8 pg Normal 27-34 [facility] Comment on above: Performed By: #### Ivon GIRALDO, BMP ####[facility] ([id number])[address] [address] MCHC (RBC) [Mass/Vol] 33.7 g/dL Normal 32-36 [facility] Comment on above: Performed By: #### C ENZO, BMP ####[facility] ([id number])[address] [address] MCV (RBC) [Entitic vol] 92 fL Normal 80-100 [facility] Comment on above: Performed By: #### Ivon GIRALDO, BMP ####[facility] ([id number])[address], [place] [address] Monocytes (Bld) [#/Vol] 1.0 10*3/uL High 0-0.9 [facility] Comment on above: Performed By: #### Ivon GIRALDO, BMP ####[facility] ([id number])[address] [address] Monocytes/100 WBC (Bld) 8.9 % Normal [facility] Comment on above: Performed By: #### Ivon GIRALDO, BMP ####[facility] ([id number])[address] [address] [address] Neutrophils/100 WBC (Bld) 79.4 % Normal [facility] Comment on above: Performed By: #### Ivon GIRALDO, BMP ####[facility] ([id number])[address] [address] Platelet mean volume (Bld) [Entitic vol] 8.8 fL Normal 7-12 [facility] Comment on above: Performed By: #### C ENZO, BMP ####[facility] ([id number])[address], [address] [place] [address] Platelets (Bld) [#/Vol] 181 10*3/uL Normal 150-450 [facility] Comment on above: Performed By: #### Ivon GIRALDO, BMP ####[facility] ([id number])[address], [address] [place] [address] RBC COUNT 4.99 X10E12/L Normal 4.10-5.70 [facility] Comment on above: Performed By: #### Ivon GIRALDO, BMP ####[facility] ([id number])[address], [address] [place] [address] WBC (Bld) [#/Vol] 11.3 10*3/uL High 4.0-11.0 [facility] Comment on above: Performed By: #### Ivon GIRALDO, BMP ####[facility] ([id number])[address], [address] [place] [address] Glucose Glucometer (dC) [M ass/Vol]on 06-13-2024 Glucose [Mass/Vol] 263 mg/dL High 65-99 [facility] Glucose [Mass/Vol] 281 mg/dL High 65-99 [facility] Glucose [Mass/Vol] 311 mg/dL High 65-99 [facility] Glucose [Mass/Vol] 320 mg/dL High 65-99 [facility] Glucose [Mass/Vol] 332 mg/dL High 65-99 [facility] XR ABD NG TUBE PLACEMENT 1 V IEWon 06-13-2024 XR ABD NG TUBE PLACEMENT 1 VIEW Normal [facility] XR CHEST 1 VWon 06-13-2024 XR CHEST 1 VW Normal [facility] BASIC METABOLIC PANLon 06-12 Anion gap [Moles/Vol] 11 mmol/L Normal 5-15 [facility] Comment on above: Performed By: #### Ivon GIRALDO, BMP ####[facility] ([id number])[address], [place] [address] Calcium [Mass/Vol] 9.7 mg/dL Normal 8.5-10.5 [facility] Comment on above: Performed By: #### C BCA, BMP ####[facility] ([id number])[address], [place] [address] Chloride [Moles/Vol] 107 mmol/L Normal 98-109 [facility] Comment on above: Performed By: #### C BCA, BMP ####[facility] ([id number])[address], [address] [place] [address] CO2 [Moles/Vol] 25 mmol/L Normal 22-32 [facility] Comment on above: Performed By: #### C BCA, BMP ####[facility] ([id number])[address] [address], [place] [address] Creatinine [Mass/Vol] 1.04 mg/dL Normal 0.60-1.30 [facility] Comment on above: Result Comment: METH OD TRACEABLE TO IDMS STANDARD Performed By: #### C BCA, BMP ####[facility] ([id number])[address] [address] GFR/1.73 sq M.predicted among non-blacks MDRD (S/P/Bld) [Vol rate/Area] 79 mL/min/{1.73_m2} Normal >59 [facility] Comment on above: Result Comment: Repo rted eGFR is based on theCKD-EPI 2020 equation that doesnot use a race coefficient. Performed By: #### C BCA, BMP ####[facility] ([id number])[address] [address], [place] [address] Glucose [Mass/Vol] 382 mg/dL High 65-99 [facility] Comment on above: Performed By: #### C BCA, BMP ####[facility] ([id number])[address], [place] [address] Potassium [Moles/Vol] 4.6 mmol/L Normal 3.5-5.0 [facility] Comment on above: Performed By: #### C ENZO, BMP ####[facility] ([id number])[address], [address], [place] [address] Sodium [Moles/Vol] 143 mmol/L Normal 134-146 [facility] Comment on above: Performed By: #### C ENZO, BMP ####[facility] ([id number])[address], [address] [place] [address] Urea nitrogen [Mass/Vol] 25 mg/dL Normal 5-27 [facility] Comment on above: Performed By: #### C ENZO, BMP ####[facility] ([id number])[address], [address] [place] [address] CBC AND AUTO DIFFon 06-12-20 24 ABSOLUTE BASOPHIL 0.1 X10E9/L Normal 0.0-0.2 [facility] Comment on above: Performed By: #### C ENZO, BMP ####[facility] ([id number])[address], [address] [place] [address] ABSOLUTE NEUTROPHIL 8.3 X10E9/L High 1.5-6.6 [facility] Comment on above: Performed By: #### C ENZO, BMP ####[facility] ([id number])[address] [address] [place] [address] Basophils/100 WBC (Bld) 0.6 % Normal [facility] Comment on above: Performed By: #### C ENZO, BMP ####[facility] ([id number])[address], [place] [address] Eosinophils (Bld) [#/Vol] 0.0 10*3/uL Normal 0.0-0.4 [facility] Comment on above: Performed By: #### C BCA, BMP ####[facility] ([id number])[address] [address] Eosinophils/100 WBC (Bld) 0.1 % Normal [facility] Comment on above: Performed By: #### C BCA, BMP ####[facility] ([id number])[address] [address], [place] [address] Erythrocyte distribution width (RBC) [Ratio] 15.4 % High 11.5-15.0 [facility] Comment on above: Performed By: #### C BCA, BMP ####[facility] ([id number])[address] [address], [place] [address] Hematocrit (Bld) [Volume fraction] 46.8 % Normal 39-49 [facility] Comment on above: Performed By: #### C BCA, BMP ####[facility] ([id number])[address] [address], [place] [address] Hemoglobin (Bld) [Mass/Vol] 15.6 g/dL Normal 13.0-17.0 [facility] Comment on above: Performed By: #### C BCA, BMP ####[facility] ([id number])[address] [address] Lymphocytes (Bld) [#/Vol] 1.2 10*3/uL Normal 1.0-3.5 [facility] Comment on above: Performed By: #### C BCA, BMP ####[facility] ([id number])[address] [address] Lymphocytes/100 WBC (Bld) 11.2 % Normal [facility] Comment on above: Performed By: #### C BCA, BMP ####[facility] ([id number])[address] [address], [place] [address] MCH (RBC) [Entitic mass] 30.6 pg Normal 27-34 [facility] Comment on above: Performed By: #### Ivon GIRALDO, BMP ####[facility] ([id number])[address], [address], [place] [address] MCHC (RBC) [Mass/Vol] 33.2 g/dL Normal 32-36 [facility] Comment on above: Performed By: #### C ENZO, BMP ####[facility] ([id number])[address], [address], [place] [address] MCV (RBC) [Entitic vol] 92 fL Normal 80-100 [facility] Comment on above: Performed By: #### Ivon GIRALDO, BMP ####[facility] [place] ([id number])[address], [address] [place] [address] Monocytes (Bld) [#/Vol] 1.1 10*3/uL High 0-0.9 [facility] Comment on above: Performed By: #### Ivon GIRALDO, BMP ####[facility] ([id number])[address], [address] [place] [address] Monocytes/100 WBC (Bld) 10.4 % Normal [facility] Comment on above: Performed By: #### Ivon GIRALDO, BMP ####[facility] [place] ([id number])[address] [address] [place] [address] Neutrophils/100 WBC (Bld) 77.7 % Normal [facility] Comment on above: Performed By: #### Ivon GIRALDO, BMP ####[facility] ([id number])[address] [address] [place] [address] Platelet mean volume (Bld) [Entitic vol] 8.6 fL Normal 7-12 [facility] Comment on above: Performed By: #### Ivon GIRALDO, BMP ####[facility] ([id number])[address], [address] [place] [address] Platelets (Bld) [#/Vol] 201 10*3/uL Normal 150-450 [facility] Comment on above: Performed By: #### Ivon GIRALDO, BMP ####[facility] ([id number])[address], [address], [place] [address] RBC COUNT 5.09 X10E12/L Normal 4.10-5.70 [facility] Comment on above: Performed By: #### C ENZO, BMP ####[facility] ([id number])[address], [address] [place] [address] WBC (Bld) [#/Vol] 10.7 10*3/uL Normal 4.0-11.0 [facility] Comment on above: Performed By: #### Ivon GIRALDO, BMP ####[facility] ([id number])[address], [address] [place] [address] BRAIN WO CONTon CT BRAIN WO CONT Normal [facility] Glucose Glucometer ([facility]) [M ass/Vol]on 06-12-2024 Glucose [Mass/Vol] 320 mg/dL High 65-99 [facility] Glucose [Mass/Vol] 325 mg/dL High 65-99 [facility] Glucose [Mass/Vol] 209 mg/dL High 65-99 [facility] Glucose [Mass/Vol] 305 mg/dL High 65-99 [facility] XR ABD NG TUBE PLACEMENT 1 V IEWon 06-12-2024 XR ABD NG TUBE PLACEMENT 1 VIEW Normal [facility] XR ABD NG TUBE PLACEMENT 1 VIEW Normal [facility] BASIC METABOLIC PANLon 06-11 Anion gap [Moles/Vol] 10 mmol/L Normal 5-15 [facility] Comment on above: Performed By: #### C ENZO, BMP ####[facility] ([id number])[address] [address] [place] [address] Calcium [Mass/Vol] 9.1 mg/dL Normal 8.5-10.5 [facility] Comment on above: Performed By: #### C ENZO, BMP ####[facility] ([id number])[address], [address], [place] [address] Chloride [Moles/Vol] 107 mmol/L Normal 98-109 [facility] Comment on above: Performed By: #### C ENZO, BMP ####[facility] ([id number])[address] [address], [place] [address] CO2 [Moles/Vol] 25 mmol/L Normal 22-32 [facility] Comment on above: Performed By: #### C ENZO, BMP ####[facility] ([id number])[address] [address] [place] [address], [place] [address] Creatinine [Mass/Vol] 0.88 mg/dL Normal 0.60-1.30 [facility] Comment on above: Result Comment: METH OD TRACEABLE TO IDMS STANDARD Performed By: #### C ENZO, BMP ####[facility] ([id number])[address] [address] [place] [address] eGFR (CKD-EPI) NON-RACE DEPENDENT >90 Normal >59 [facility] Comment on above: Result Comment: Repo rted eGFR is based on theCKD-EPI 2020 equation that doesnot use a race coefficient. Performed By: #### C ENZO, BMP ####[facility] ([id number])[address] [address] [place] [address] Glucose [Mass/Vol] 330 mg/dL High 65-99 [facility] Comment on above: Performed By: #### C ENZO, BMP ####[facility] ([id number])[address] [address] [place] [address] Potassium [Moles/Vol] 4.4 mmol/L Normal 3.5-5.0 [facility] Comment on above: Performed By: #### C ENZO, BMP ####[facility] [facility] ([id number])[address], [address] [place] [address] Sodium [Moles/Vol] 142 mmol/L Normal 134-146 [facility] Comment on above: Performed By: #### Ivon GIRALDO, BMP ####[facility] [facility] ([id number])[address], [address] [place] [address] Urea nitrogen [Mass/Vol] 21 mg/dL Normal 5-27 [facility] Comment on above: Performed By: #### C ENZO, BMP ####[facility] ([id number])[address], [address] [place] [address] BLOOD CULTUREon 06-11-2024 Bacteria identified Aer cx Nom (Bld) SPECIMEN NOTES SUBOPTIMAL VOLUME OF BLOOD COLLECTED, RESULTS MAY BE AFFECTED. CULTURE RESULTS NO GROWTH 5 DAYS Normal [facility] Comment on above: Performed By: #### 1 7928-3 ####[facility] ([id number])[address], [address] [place] [address] Bacteria identified Aer cx Nom (Bld) SPECIMEN NOTES SUBOPTIMAL VOLUME OF BLOOD COLLECTED, RESULTS MAY BE AFFECTED. CULTURE RESULTS NO GROWTH 5 DAYS Normal [facility] Comment on above: Performed By: #### 1 7928-3 ####[facility] ([id number])[address] [address] [place] [address] CBC AND AUTO DIFFon 06-11-20 24 ABSOLUTE BASOPHIL 0.1 X10E9/L Normal 0.0-0.2 [facility] Comment on above: Performed By: #### C ENZO, BMP ####[facility] ([id number])[address] [address] [place] [address] ABSOLUTE NEUTROPHIL 7.7 X10E9/L High 1.5-6.6 [facility] Comment on above: Performed By: #### C ENZO, BMP ####[facility] [place] [facility] ([id number])[address], [address], [place] [address] Basophils/100 WBC (Bld) 0.6 % Normal [facility] Comment on above: Performed By: #### C BCA, BMP ####[facility] [place] [facility] ([id number])[address], [address], [place] [address] Eosinophils (Bld) [#/Vol] 0.0 10*3/uL Normal 0.0-0.4 [facility] Comment on above: Performed By: #### C ENZO, BMP ####[facility] ([id number])[address] [address] [address] Eosinophils/100 WBC (Bld) 0.2 % Normal [facility] Comment on above: Performed By: #### C ENZO, BMP ####[facility] ([id number])[address] [address] [place] [address] Erythrocyte distribution width (RBC) [Ratio] 15.3 % High 11.5-15.0 [facility] Comment on above: Performed By: #### C ENZO, BMP ####[facility] [place] [facility] ([id number])[address] [address], [place] [address] Hematocrit (Bld) [Volume fraction] 43.3 % Normal 39-49 [facility] Comment on above: Performed By: #### C ENZO, BMP ####[facility] [place] [facility] ([id number])[address], [address], [place] [address] Hemoglobin (Bld) [Mass/Vol] 14.8 g/dL Normal 13.0-17.0 [facility] Comment on above: Performed By: #### C BCA, BMP ####[facility] ([id number])[address] [place] [address] Lymphocytes (Bld) [#/Vol] 1.0 10*3/uL Normal 1.0-3.5 [facility] Comment on above: Performed By: #### C ENZO, BMP ####[facility] [place] [facility] ([id number])[address], [place] [address] Lymphocytes/100 WBC (Bld) 10.5 % Normal [facility] Comment on above: Performed By: #### C ENZO, BMP ####[facility] ([id number])[address], [address] [place] [address] MCH (RBC) [Entitic mass] 31.1 pg Normal 27-34 [facility] Comment on above: Performed By: #### C ENZO, BMP ####[facility] [place] [facility] ([id number])[address], [address], [place] [address] MCHC (RBC) [Mass/Vol] 34.3 g/dL Normal 32-36 [facility] Comment on above: Performed By: #### C ENZO, BMP ####[facility] [place] [facility] ([id number])[address], [address] [place] [address] MCV (RBC) [Entitic vol] 91 fL Normal 80-100 [facility] Comment on above: Performed By: #### C ENZO, BMP ####[facility] ([id number])[address] [address], [place] [address] Monocytes (Bld) [#/Vol] 1.1 10*3/uL High 0-0.9 [facility] Comment on above: Performed By: #### C ENZO, BMP ####[facility] [place] [facility] ([id number])[address] [address] Monocytes/100 WBC (Bld) 11.1 % Normal [facility] Comment on above: Performed By: #### C ENZO, BMP ####[facility] [place] [facility] ([id number])[address], [address], [place] [address] Neutrophils/100 WBC (Bld) 77.6 % Normal [facility] Comment on above: Performed By: #### Ivon GIRALDO, BMP ####[facility] ([id number])[address], [address], [place] [address] Platelet mean volume (Bld) [Entitic vol] 8.5 fL Normal 7-12 [facility] Comment on above: Performed By: #### C ENZO, BMP ####[facility] [facility] ([id number])[address], [address], [place] [address] Platelets (Bld) [#/Vol] 180 10*3/uL Normal 150-450 [facility] Comment on above: Performed By: #### Ivon GIRALDO, BMP ####[facility] [facility] ([id number])[address], [address], [place] [address] RBC COUNT 4.77 X10E12/L Normal 4.10-5.70 [facility] Comment on above: Performed By: #### Ivon GIRALDO, BMP ####[facility] [facility] ([id number])[address] [address] [place] [address] WBC (Bld) [#/Vol] 9.9 10*3/uL Normal 4.0-11.0 [facility] Comment on above: Performed By: #### Ivon GIRALDO, BMP ####[facility] ([id number])[address], [address] [address] Glucose Glucometer (dC) [M ass/Vol]on 06-11-2024 Glucose [Mass/Vol] 321 mg/dL High 65-99 [facility] Glucose [Mass/Vol] 331 mg/dL High 65-99 [facility] Glucose [Mass/Vol] 313 mg/dL High 65-99 [facility] Glucose [Mass/Vol] 302 mg/dL High 65-99 [facility] Glucose [Mass/Vol] 343 mg/dL High 65-99 [facility] Lactate (P chauncey) [Moles/Vol]o n 06-11-2024 LACTATE W/REFLEX 1.5 mmol/L Normal 0.4-2.0 [facility] Comment on above: Result Comment: Resu lt did not trigger repeat Lactate,re-order if needed. Performed By: #### 3 2133-1, 64998-5 ####[facility] ([id number])[address] [facility], [address] [place] [address] Procalcitonin IA [Mass/Vol]o n 06-11-2024 PROCALCITONIN 0.14 ng/mL High <0.05 [facility] Comment on above: Result Comment: NOTE <0.50 ng/mL - Low risk of severe sepsis and/or septic shock.<2.00 ng/mL - Recommend retesting within 6-24 hours.>2.00 ng/mL - High risk of sepsis and/or septic shock. Performed By: #### 3 3-1, 26291-8 ####[facility] ([id number])0 [facility], [address] [place] [address] RESP PATHOGENS/[id number] 06-11-2024 Respiratory pathogens DNA and RNA panel ELISSA+non-probe (Nph) Normal [facility] Comment on above: Performed By: #### 8 2159-5 ####[facility] ([id number])[address] [place] [address], [address] [place] [address] URINALYSISon 06-11-2024 Bilirubin Ql (U) Negative Normal NEG [facility] Comment on above: Performed By: #### U A ####[facility] [facility] ([id number])[address] [place] [address], [address] [place] [address] BLOOD/HGB Small Abnormal NEG [facility] Comment on above: Performed By: #### U A ####[facility] [place] [facility] ([id number])[address] [place] [address], [address], [place] [address] Color (U) YELLOW Normal YELLOW [facility] Comment on above: Performed By: #### U A ####[facility] [place] [facility] ([id number])[address], [address], [place] [address] Glucose Ql (U) >1000 Abnormal NEG [facility] Comment on above: Performed By: #### U A ####[facility] [place] [facility] ([id number])[address] [place] [address] Ketones Ql (U) Negative Normal NEG [facility] Comment on above: Performed By: #### U A ####[facility] [place] [facility] ([id number])[address] [address] Leukocyte esterase Test strip Ql (U) Negative Normal NEG [facility] Comment on above: Result Comment: HIGH CONCENTRATIONS OF GLUCOSE MAY DECREASE THE REACTIVITY OF THE DIPSTICK LEUKOCYTE TEST PAD. Performed By: #### U A ####[facility] [place] [facility] ([id number])[address], [address] [address] MUCOUS PRESENT Abnormal NONE [facility] Comment on above: Performed By: #### U A ####[facility] [place] [facility] ([id number])[address] [place] [address] Nitrite Ql (U) Negative Normal NEG [facility] Comment on above: Performed By: #### U A ####[facility] [place] [facility] ([id number])[address] [address] pH (U) 5.5 [pH] Normal 5.0-8.5 [facility] Comment on above: Performed By: #### U A ####[facility] [place] [facility] ([id number])[address] [place] [address] Protein Ql (U) 30 mg/dL Abnormal NEG [facility] Comment on above: Performed By: #### U A ####[facility] [place] [facility] ([id number])[address] [address] [place] [address] R.B.CELLS 1 /hpf Normal 0-5 [facility] Comment on above: Performed By: #### U A ####[facility] [place] [facility] ([id number])[address] [address] [place] [address] Specific gravity (U) [Rel density] 1.029 Normal 1.003-1.035 [facility] Comment on above: Performed By: #### U A ####[facility] [place] [facility] ([id number])[address] [address] TURBIDITY CLEAR Normal CLEAR [facility] Comment on above: Performed By: #### U A ####[facility] [place] [facility] ([id number])[address] [address] Urinalysis dipstick W Reflex Microscopic panel (U) URINE RECEIVED WITHOUT PRESERVATIVE-DELAYS IN TRANSPORT MAY AFFECT RESULTS.INTERPRET WITH CAUTION AND CLINICAL CORRELATION IS RECOMMENDED. Normal [facility] Comment on above: Performed By: #### U A ####[facility] [place] [facility] ([id number])[address] [address] [place] [address] Urobilinogen (U) [Mass/Vol] mg/dL Normal <1.1 [facility] Comment on above: Performed By: #### U A ####[facility] [place] [facility] ([id number])[address] [address] W.B.CELLS 1 /hpf Normal 0-5 [facility] Comment on above: Performed By: #### U A ####[facility] ([id number])[address] [address] XR CHEST 1 VWon 06-11-2024 XR CHEST 1 VW Normal [facility] BASIC METABOLIC PANLon 06-10 Anion gap [Moles/Vol] 12 mmol/L Normal 5-15 [facility] Comment on above: Performed By: #### C BCA, BMP ####[facility] [place] [facility] ([id number])[address] [place] [address] Calcium [Mass/Vol] 9.3 mg/dL Normal 8.5-10.5 [facility] Comment on above: Performed By: #### C ENZO, BMP ####[facility] [place] [facility] ([id number])[address], [place] [address] Chloride [Moles/Vol] 106 mmol/L Normal 98-109 [facility] Comment on above: Performed By: #### C BCA, BMP ####[facility] [place] [facility] ([id number])[address] [address], [place] [address] CO2 [Moles/Vol] 22 mmol/L Normal 22-32 [facility] Comment on above: Performed By: #### C ENZO, BMP ####[facility] [place] [facility] ([id number])[address] [address], [place] [address] Creatinine [Mass/Vol] 0.84 mg/dL Normal 0.60-1.30 [facility] Comment on above: Result Comment: METH OD TRACEABLE TO IDMS STANDARD Performed By: #### C ENZO, BMP ####[facility] [place] [facility] ([id number])[address] [address] [address] eGFR (CKD-EPI) NON-RACE DEPENDENT >90 Normal >59 [facility] Comment on above: Result Comment: Repo rted eGFR is based on theCKD-EPI 2020 equation that doesnot use a race coefficient. Performed By: #### C BCA, BMP ####[facility] [place] [facility] ([id number])[address] [address], [place] [address] Glucose [Mass/Vol] 223 mg/dL High 65-99 [facility] Comment on above: Performed By: #### C BCA, BMP ####[facility] [place] [facility] ([id number])[address], [place] [address] Potassium [Moles/Vol] 4.0 mmol/L Normal 3.5-5.0 [facility] Comment on above: Performed By: #### C BCA, BMP ####[facility] [place] [facility] ([id number])[address], [place] [address] Sodium [Moles/Vol] 140 mmol/L Normal 134-146 [facility] Comment on above: Performed By: #### C ENOZ, BMP ####[facility] [place] [facility] ([id number])[address], [place] [address] Urea nitrogen [Mass/Vol] 18 mg/dL Normal 5-27 [facility] Comment on above: Performed By: #### C BCA, BMP ####[facility] [place] [facility] ([id number])[address], [place] [address] CBC AND AUTO DIFFon 08-30-20 24 ABSOLUTE BASOPHIL 0.0 X10E9/L Normal 0.0-0.2 [facility] Comment on above: Performed By: #### C BCA, BMP ####[facility] [place] [facility] ([id number])[address], [place] [address] ABSOLUTE NEUTROPHIL 8.2 X10E9/L High 1.5-6.6 [facility] Comment on above: Performed By: #### C BCA, BMP ####[facility] [place] [facility] ([id number])[address], [address] [place] [address] Basophils/100 WBC (Bld) 0.4 % Normal [facility] Comment on above: Performed By: #### C BCA, BMP ####[facility] [place] [facility] ([id number])[address], [address] [place] [address] Eosinophils (Bld) [#/Vol] 0.0 10*3/uL Normal 0.0-0.4 [facility] Comment on above: Performed By: #### C ENZO, BMP ####[facility] [place] [facility] ([id number])[address] [address], [place] [address] Eosinophils/100 WBC (Bld) 0.2 % Normal [facility] Comment on above: Performed By: #### C ENZO, BMP ####[facility] [place] [facility] ([id number])[address] [address], [place] [address] Erythrocyte distribution width (RBC) [Ratio] 15.3 % High 11.5-15.0 [facility] Comment on above: Performed By: #### C ENZO, BMP ####[facility] [place] [facility] ([id number])[address] [address], [place] [address] Hematocrit (Bld) [Volume fraction] 45.8 % Normal 39-49 [facility] Comment on above: Performed By: #### C ENZO, BMP ####[facility] [place] [facility] ([id number])[address] [address] Hemoglobin (Bld) [Mass/Vol] 15.2 g/dL Normal 13.0-17.0 [facility] Comment on above: Performed By: #### C ENZO, BMP ####[facility] [place] [facility] ([id number])[address] [address] Lymphocytes (Bld) [#/Vol] 1.0 10*3/uL Normal 1.0-3.5 [facility] Comment on above: Performed By: #### C ENZO, BMP ####[facility] [place] [facility] ([id number])[address] [address] [place] [address] Lymphocytes/100 WBC (Bld) 10.1 % Normal [facility] Comment on above: Performed By: #### C ENZO, BMP ####[facility] [place] [facility] ([id number])[address] [address] MCH (RBC) [Entitic mass] 30.3 pg Normal 27-34 [facility] Comment on above: Performed By: #### C ENZO, BMP ####[facility] [place] [facility] ([id number])[address] [address] MCHC (RBC) [Mass/Vol] 33.3 g/dL Normal 32-36 [facility] Comment on above: Performed By: #### C ENZO, BMP ####[facility] [place] [facility] ([id number])[address], [place] [address] MCV (RBC) [Entitic vol] 91 fL Normal 80-100 [facility] Comment on above: Performed By: #### Ivon GIRALDO, BMP ####[facility] [place] [facility] ([id number])[address], [place] [address] Monocytes (Bld) [#/Vol] 0.9 10*3/uL Normal 0-0.9 [facility] Comment on above: Performed By: #### C ENZO, BMP ####[facility] [place] [facility] ([id number])[address], [place] [address] Monocytes/100 WBC (Bld) 9.0 % Normal [facility] Comment on above: Performed By: #### Ivon GIRALDO, BMP ####[facility] [place] [facility] ([id number])[address], [place] [address] Neutrophils/100 WBC (Bld) 80.3 % Normal [facility] Comment on above: Performed By: #### C ENZO, BMP ####[facility] [place] [facility] ([id number])[address] [address] Platelet mean volume (Bld) [Entitic vol] 8.6 fL Normal 7-12 [facility] Comment on above: Performed By: #### C ENZO, BMP ####[facility] [place] [facility] ([id number])[address], [address] [place] [address] Platelets (Bld) [#/Vol] 184 10*3/uL Normal 150-450 [facility] Comment on above: Performed By: #### C ENZO, BMP ####[facility] [place] ([id number])[address], [address], [place] [address] RBC COUNT 5.03 X10E12/L Normal 4.10-5.70 [facility] Comment on above: Performed By: #### C ENZO, BMP ####[facility] ([id number])[address], [address] [place] [address] WBC (Bld) [#/Vol] 10.3 10*3/uL Normal 4.0-11.0 [facility] Comment on above: Performed By: #### C ENZO, BMP ####[facility] ([id number])[address], [place] [address] Glucose Glucometer (BldC) [M ass/Vol]on 06-10-2024 Glucose [Mass/Vol] 267 mg/dL High 65-99 [facility] Glucose [Mass/Vol] 252 mg/dL High 65-99 [facility] Glucose [Mass/Vol] 259 mg/dL High 65-99 [facility] Glucose [Mass/Vol] 266 mg/dL High 65-99 [facility] BASIC METABOLIC PANLon 06-09 Anion gap [Moles/Vol] 13 mmol/L Normal 5-15 [facility] Comment on above: Performed By: #### C ENZO, BMP ####[facility] ([id number])[address], [address] [place] [address], [place] [address] Calcium [Mass/Vol] 9.2 mg/dL Normal 8.5-10.5 [facility] Comment on above: Performed By: #### C BCA, BMP ####[facility] ([id number])[address] [address], [place] [address] Chloride [Moles/Vol] 106 mmol/L Normal 98-109 [facility] Comment on above: Performed By: #### C BCA, BMP ####[facility] ([id number])[address], [place] [address] CO2 [Moles/Vol] 23 mmol/L Normal 22-32 [facility] Comment on above: Performed By: #### C BCA, BMP ####[facility] ([id number])[address] [address] [place] [address] Creatinine [Mass/Vol] 0.91 mg/dL Normal 0.60-1.30 [facility] Comment on above: Result Comment: METH OD TRACEABLE TO IDMS STANDARD Performed By: #### C BCA, BMP ####[facility] ([id number])[address] [address] [place] [address], [place] [address] eGFR (CKD-EPI) NON-RACE DEPENDENT >90 Normal >59 [facility] Comment on above: Result Comment: Repo rted eGFR is based on theCKD-EPI 2020 equation that doesnot use a race coefficient. Performed By: #### C BCA, BMP ####[facility] ([id number])[address] [address] [place] [address] Glucose [Mass/Vol] 144 mg/dL High 65-99 [facility] Comment on above: Performed By: #### C BCA, BMP ####[facility] ([id number])[address] [address] [place] [address] Potassium [Moles/Vol] 4.1 mmol/L Normal 3.5-5.0 [facility] Comment on above: Performed By: #### C BCA, BMP ####[facility] ([id number])[address], [place] [address] Sodium [Moles/Vol] 142 mmol/L Normal 134-146 [facility] Comment on above: Performed By: #### C ENZO, BMP ####[facility] ([id number])[address] [address] Urea nitrogen [Mass/Vol] 15 mg/dL Normal 5-27 [facility] Comment on above: Performed By: #### C ENZO, BMP ####[facility] ([id number])[address], [place] [address] CBC AND AUTO DIFFon 06-09-20 24 ABSOLUTE BASOPHIL 0.1 X10E9/L Normal 0.0-0.2 [facility] Comment on above: Performed By: #### C ENZO, BMP ####[facility] ([id number])[address], [address], [place] [address] ABSOLUTE NEUTROPHIL 7.6 X10E9/L High 1.5-6.6 [facility] Comment on above: Performed By: #### Ivon GIRALDO, BMP ####[facility] ([id number])[address], [place] [address] Basophils/100 WBC (Bld) 0.6 % Normal [facility] Comment on above: Performed By: #### Ivon GIRALDO, BMP ####[facility] ([id number])[address], [place] [address] Eosinophils (Bld) [#/Vol] 0.1 10*3/uL Normal 0.0-0.4 [facility] Comment on above: Performed By: #### C ENZO, BMP ####[facility] ([id number])[address] [address] Eosinophils/100 WBC (Bld) 0.5 % Normal [facility] Comment on above: Performed By: #### C ENZO, BMP ####[facility] ([id number])[address], [address] [address] Erythrocyte distribution width (RBC) [Ratio] 15.0 % Normal 11.5-15.0 [facility] Comment on above: Performed By: #### C BCA, BMP ####[facility] ([id number])[address], [place] [address] Hematocrit (Bld) [Volume fraction] 44.4 % Normal 39-49 [facility] Comment on above: Performed By: #### C ENZO, BMP ####[facility] ([id number])[address] [address] [place] [address] Hemoglobin (Bld) [Mass/Vol] 15.0 g/dL Normal 13.0-17.0 [facility] Comment on above: Performed By: #### C ENZO, BMP ####[facility] ([id number])[address] [address] [place] [address] Lymphocytes (Bld) [#/Vol] 1.6 10*3/uL Normal 1.0-3.5 [facility] Comment on above: Performed By: #### C ENZO, BMP ####[facility] ([id number])[address], [place] [address] Lymphocytes/100 WBC (Bld) 15.2 % Normal [facility] Comment on above: Performed By: #### C BCA, BMP ####[facility] ([id number])[address], [place] [address] MCH (RBC) [Entitic mass] 30.5 pg Normal 27-34 [facility] Comment on above: Performed By: #### C BCA, BMP ####[facility] ([id number])[address], [place] [address] MCHC (RBC) [Mass/Vol] 33.8 g/dL Normal 32-36 [facility] Comment on above: Performed By: #### C ENZO, BMP ####[facility] ([id number])[address], [place] [address] MCV (RBC) [Entitic vol] 90 fL Normal 80-100 [facility] Comment on above: Performed By: #### C BCA, BMP ####[facility] ([id number])[address] [address] Monocytes (Bld) [#/Vol] 1.0 10*3/uL High 0-0.9 [facility] Comment on above: Performed By: #### C BCA, BMP ####[facility] ([id number])[address] [address] Monocytes/100 WBC (Bld) 9.6 % Normal [facility] Comment on above: Performed By: #### C BCA, BMP ####[facility] ([id number])[address] [address] Neutrophils/100 WBC (Bld) 74.1 % Normal [facility] Comment on above: Performed By: #### C BCA, BMP ####[facility] ([id number])[address], [address], [place] [address] Platelet mean volume (Bld) [Entitic vol] 8.2 fL Normal 7-12 [facility] Comment on above: Performed By: #### C BCA, BMP ####[facility] ([id number])[address], [place] [address] Platelets (Bld) [#/Vol] 171 10*3/uL Normal 150-450 [facility] Comment on above: Performed By: #### C BCA, BMP ####[facility] ([id number])[address], [address] [place] [address] RBC COUNT 4.92 X10E12/L Normal 4.10-5.70 [facility] Comment on above: Performed By: #### C ENZO, BMP ####[facility] ([id number])[address], [address] [place] [address] WBC (Bld) [#/Vol] 10.3 10*3/uL Normal 4.0-11.0 [facility] Comment on above: Performed By: #### C ENZO, BMP ####[facility] ([id number])[address] [address] Glucose Glucometer (BldC) [M ass/Vol]on 06-09-2024 Glucose [Mass/Vol] 168 mg/dL High 65-99 [facility] Glucose [Mass/Vol] 152 mg/dL High 65-99 [facility] Glucose [Mass/Vol] 136 mg/dL High 65-99 [facility] Glucose [Mass/Vol] 152 mg/dL High 65-99 [facility] comment Sadi (Repo rt)on 06-09-2024 UNLISTED LAB TEST Sent to reference lab Normal [facility] Comment on above: Result Comment: BY R ESEARCH Magnesium Ionized ISE (Bld) [Moles/Vol]on 06-09-2024 Magnesium [Moles/Vol] 0.57 mmol/L Normal 0.45-0.74 [facility] Comment on above: Result Comment: NEW REFERENCE RANGE Performed By: #### 7 3572-0 ####[facility] ([id number])[address] [address] PHOSPHORUSon 06-09-2024 Phosphate [Mass/Vol] 2.2 mg/dL Low 2.4-4.9 [facility] Comment on above: Performed By: #### 2 777-1 ####[facility] ([id number])[address] [address] XR ABD NG TUBE PLACEMENT 1 V IEWon 06-09-2024 XR ABD NG TUBE PLACEMENT 1 VIEW Normal [facility] BASIC METABOLIC PANLon 06-08 Anion gap [Moles/Vol] 11 mmol/L Normal 5-15 [facility] Comment on above: Performed By: #### C BCA, BMP ####[facility] ([id number])[address] [address] Calcium [Mass/Vol] 8.9 mg/dL Normal 8.5-10.5 [facility] Comment on above: Performed By: #### C BCA, BMP ####[facility] ([id number])[address] [address] Chloride [Moles/Vol] 106 mmol/L Normal 98-109 [facility] Comment on above: Performed By: #### C BCA, BMP ####[facility] ([id number])[address] [address] CO2 [Moles/Vol] 24 mmol/L Normal 22-32 [facility] Comment on above: Performed By: #### C BCA, BMP ####[facility] ([id number])[address] [address] Creatinine [Mass/Vol] 0.89 mg/dL Normal 0.60-1.30 [facility] Comment on above: Result Comment: METH OD TRACEABLE TO IDMS STANDARD Performed By: #### C BCA, BMP ####[facility] ([id number])[address] [address] eGFR (CKD-EPI) NON-RACE DEPENDENT >90 Normal >59 [facility] Comment on above: Result Comment: Repo rted eGFR is based on theCKD-EPI 2020 equation that doesnot use a race coefficient. Performed By: #### C BCA, BMP ####[facility] ([id number])[address] [address] Glucose [Mass/Vol] 149 mg/dL High 65-99 [facility] Comment on above: Performed By: #### C ENZO, BMP ####[facility] ([id number])[address] [address] Potassium [Moles/Vol] 3.8 mmol/L Normal 3.5-5.0 [facility] Comment on above: Performed By: #### C ENZO, BMP ####[facility] ([id number])[address] [address] Sodium [Moles/Vol] 141 mmol/L Normal 134-146 [facility] Comment on above: Performed By: #### C ENZO, BMP ####[facility] ([id number])[address] [address] Urea nitrogen [Mass/Vol] 12 mg/dL Normal 5-27 [facility] Comment on above: Performed By: #### C ENZO, BMP ####[facility] ([id number])[address] [address] CBC AND AUTO DIFFon 06-08-20 24 ABSOLUTE BASOPHIL 0.0 X10E9/L Normal 0.0-0.2 [facility] Comment on above: Performed By: #### C ENZO, BMP ####[facility] ([id number])[address] [address] ABSOLUTE NEUTROPHIL 7.5 X10E9/L High 1.5-6.6 [facility] Comment on above: Performed By: #### C ENZO, BMP ####[facility] ([id number])[address] [address] Basophils/100 WBC (Bld) 0.4 % Normal [facility] Comment on above: Performed By: #### C BCA, BMP ####[facility] ([id number])[address] [address], [place] [address] Eosinophils (Bld) [#/Vol] 0.0 10*3/uL Normal 0.0-0.4 [facility] Comment on above: Performed By: #### C BCA, BMP ####[facility] ([id number])[address] [address] [place] [address] Eosinophils/100 WBC (Bld) 0.2 % Normal [facility] Comment on above: Performed By: #### C ENZO, BMP ####[facility] ([id number])[address] [address] Erythrocyte distribution width (RBC) [Ratio] 15.0 % Normal 11.5-15.0 [facility] Comment on above: Performed By: #### C ENZO, BMP ####[facility] ([id number])[address] [address] [place] [address] Hematocrit (Bld) [Volume fraction] 43.5 % Normal 39-49 [facility] Comment on above: Performed By: #### C BCA, BMP ####[facility] ([id number])[address] [address] Hemoglobin (Bld) [Mass/Vol] 14.9 g/dL Normal 13.0-17.0 [facility] Comment on above: Performed By: #### C BCA, BMP ####[facility] ([id number])[address] [address] [place] [address] Lymphocytes (Bld) [#/Vol] 1.6 10*3/uL Normal 1.0-3.5 [facility] Comment on above: Performed By: #### C BCA, BMP ####[facility] ([id number])[address] [address] [place] [address] Lymphocytes/100 WBC (Bld) 15.9 % Normal [facility] Comment on above: Performed By: #### C BCA, BMP ####[facility] ([id number])[address], [place] [address] MCH (RBC) [Entitic mass] 30.9 pg Normal 27-34 [facility] Comment on above: Performed By: #### C BCA, BMP ####[facility] ([id number])[address], [address] [place] [address] MCHC (RBC) [Mass/Vol] 34.2 g/dL Normal 32-36 [facility] Comment on above: Performed By: #### C BCA, BMP ####[facility] ([id number])[address] [address], [place] [address] MCV (RBC) [Entitic vol] 90 fL Normal 80-100 [facility] Comment on above: Performed By: #### C BCA, BMP ####[facility] ([id number])[address] [address] Monocytes (Bld) [#/Vol] 1.0 10*3/uL High 0-0.9 [facility] Comment on above: Performed By: #### C BCA, BMP ####[facility] ([id number])[address], [address] [place] [address] Monocytes/100 WBC (Bld) 9.9 % Normal [facility] Comment on above: Performed By: #### C BCA, BMP ####[facility] ([id number])[address] [address] [place] [address] Neutrophils/100 WBC (Bld) 73.6 % Normal [facility] Comment on above: Performed By: #### C BCA, BMP ####[facility] ([id number])[address], [place] [address] Platelet mean volume (Bld) [Entitic vol] 8.4 fL Normal 7-12 [facility] Comment on above: Performed By: #### C ENZO, BMP ####[facility] ([id number])[address], [place] [address] Platelets (Bld) [#/Vol] 176 10*3/uL Normal 150-450 [facility] Comment on above: Performed By: #### Ivon GIRALDO, BMP ####[facility] ([id number])[address], [place] [address] RBC COUNT 4.82 X10E12/L Normal 4.10-5.70 [facility] Comment on above: Performed By: #### Ivon GIRALDO, BMP ####[facility] ([id number])[address], [address] [place] [address] WBC (Bld) [#/Vol] 10.3 10*3/uL Normal 4.0-11.0 [facility] Comment on above: Performed By: #### Ivon GIRALDO, BMP ####[facility] ([id number])[address] [place] [address] Glucose Glucometer (dC) [M ass/Vol]on 06-08-2024 Glucose [Mass/Vol] 138 mg/dL High 65-99 [facility] Glucose [Mass/Vol] 140 mg/dL High 65-99 [facility] Glucose [Mass/Vol] 129 mg/dL High 65-99 [facility] Glucose [Mass/Vol] 151 mg/dL High 65-99 [facility] comment Sadi (Tay rt)on 06-08-2024 UNLISTED LAB TEST Sent to reference lab Normal [facility] Comment on above: Result Comment: BY [place] ESEARCH POTASSIUMon 06-08-2024 Potassium [Moles/Vol] 4.2 mmol/L Normal 3.5-5.0 [facility] Comment on above: Performed By: #### 2 823-3 ####[facility] ([id number])[address], [place] [address] BASIC METABOLIC PANLon 06-07 Anion gap [Moles/Vol] 12 mmol/L Normal 5-15 [facility] Comment on above: Performed By: #### C TK GIRALDO, 72176-8 ####[facility] ([id number])[address], [place] [address] Calcium [Mass/Vol] 9.2 mg/dL Normal 8.5-10.5 [facility] Comment on above: Performed By: #### C ENZO BMP, 46738-2 ####[facility] ([id number])[address], [place] [address] Chloride [Moles/Vol] 103 mmol/L Normal 98-109 [facility] Comment on above: Performed By: #### C BCA, BMP, 23480-2 ####[facility] ([id number])[address] [place] [address] CO2 [Moles/Vol] 24 mmol/L Normal 22-32 [facility] Comment on above: Performed By: #### C BCA BMP, 37853-8 ####[facility] ([id number])[address], [place] [address] Creatinine [Mass/Vol] 0.89 mg/dL Normal 0.60-1.30 [facility] Comment on above: Result Comment: METH OD TRACEABLE TO IDMS STANDARD Performed By: #### C BCA, BMP, 17724-1 ####[facility] ([id number])[address], [place] [address] eGFR (CKD-EPI) NON-RACE DEPENDENT >90 Normal >59 [facility] Comment on above: Result Comment: Repo rted eGFR is based on theD-EPI 2020 equation that doesnot use a race coefficient. Performed By: #### C TK GIRALDO, 20665-6 ####[facility] ([id number])[address] [address], [place] [address] Glucose [Mass/Vol] 179 mg/dL High 65-99 [facility] Comment on above: Performed By: #### C TK GIRALDO, 17100-6 ####[facility] ([id number])[address] [address] Potassium [Moles/Vol] 3.7 mmol/L Normal 3.5-5.0 [facility] Comment on above: Performed By: #### TK Del Valle BCA, 57323-6 ####[facility] ([id number])[address] [address] Sodium [Moles/Vol] 139 mmol/L Normal 134-146 [facility] Comment on above: Performed By: #### TK Del Valle BCA, 28418-7 ####[facility] ([id number])[address] [address] Urea nitrogen [Mass/Vol] 10 mg/dL Normal 5-27 [facility] Comment on above: Performed By: #### TK Del Valle BCA, 47374-0 ####[facility] ([id number])[address] [address] CBC AND AUTO DIFFon 06-07-20 24 ABSOLUTE BASOPHIL 0.1 X10E9/L Normal 0.0-0.2 [facility] Comment on above: Performed By: #### TK Del Valle BCA, 20659-7 ####[facility] ([id number])[address] [address] ABSOLUTE NEUTROPHIL 8.6 X10E9/L High 1.5-6.6 [facility] Comment on above: Performed By: #### C TK GIRALDO, 87460-9 ####[facility] ([id number])[address] [address] Basophils/100 WBC (Bld) 1.1 % Normal [facility] Comment on above: Performed By: #### C TK GIRALDO, 58539-2 ####[facility] ([id number])[address] [address] Eosinophils (Bld) [#/Vol] 0.0 10*3/uL Normal 0.0-0.4 [facility] Comment on above: Performed By: #### C TK GIRALDO, 47429-3 ####[facility] ([id number])[address] [address], [place] [address] Eosinophils/100 WBC (Bld) 0.1 % Normal [facility] Comment on above: Performed By: #### TK Del Valle BCA, 68990-6 ####[facility] ([id number])[address] [address] [address] Erythrocyte distribution width (RBC) [Ratio] 15.3 % High 11.5-15.0 [facility] Comment on above: Performed By: #### TK Del Valle BCA, 35493-4 ####[facility] ([id number])[address] [address] [address] Hematocrit (Bld) [Volume fraction] 46.2 % Normal 39-49 [facility] Comment on above: Performed By: #### TK Del Valle BCA, 08310-6 ####[facility] ([id number])[address] [address] [address] Hemoglobin (Bld) [Mass/Vol] 16.0 g/dL Normal 13.0-17.0 [facility] Comment on above: Performed By: #### C TK GIRALDO, 19822-1 ####[facility] ([id number])[address] [address], [place] [address] Lymphocytes (Bld) [#/Vol] 1.0 10*3/uL Normal 1.0-3.5 [facility] Comment on above: Performed By: #### TK Del Valle BCA, 72679-6 ####[facility] ([id number])[address], [place] [address] Lymphocytes/100 WBC (Bld) 9.7 % Normal [facility] Comment on above: Performed By: #### TK Del Valle BCA, 96474-5 ####[facility] ([id number])[address], [place] [address] MCH (RBC) [Entitic mass] 30.9 pg Normal 27-34 [facility] Comment on above: Performed By: #### TK Del Valle BCA, 27984-5 ####[facility] ([id number])[address], [place] [address] MCHC (RBC) [Mass/Vol] 34.6 g/dL Normal 32-36 [facility] Comment on above: Performed By: #### TK Del Valle BCA, 89966-8 ####[facility] ([id number])[address] [address], [place] [address] MCV (RBC) [Entitic vol] 89 fL Normal 80-100 [facility] Comment on above: Performed By: #### TK Del Valle BCA, 91745-7 ####[facility] ([id number])[address] [address] [place] [address] Monocytes (Bld) [#/Vol] 0.6 10*3/uL Normal 0-0.9 [facility] Comment on above: Performed By: #### TK Del Valle BCA, 92851-1 ####[facility] ([id number])[address], [place] [address] Monocytes/100 WBC (Bld) 6.2 % Normal [facility] Comment on above: Performed By: #### TK Del Valle BCA, 36761-5 ####[facility] ([id number])[address], [place] [address] Neutrophils/100 WBC (Bld) 82.9 % Normal [facility] Comment on above: Performed By: #### TK Del Valle BCA, 93789-6 ####[facility] ([id number])[address], [place] [address] Platelet mean volume (Bld) [Entitic vol] 8.4 fL Normal 7-12 [facility] Comment on above: Performed By: #### TK Del Valle BCA, 16267-5 ####[facility] ([id number])[address], [place] [address] Platelets (Bld) [#/Vol] 187 10*3/uL Normal 150-450 [facility] Comment on above: Performed By: #### TK Del Valle BCA, 82888-6 ####[facility] ([id number])[address], [place] [address] RBC COUNT 5.18 X10E12/L Normal 4.10-5.70 [facility] Comment on above: Performed By: #### TK Del Valle BCA, 44401-3 ####[facility] ([id number])[address], [place] [address] WBC (Bld) [#/Vol] 10.3 10*3/uL Normal 4.0-11.0 [facility] Comment on above: Performed By: #### TK Del Valle BCA, 44262-9 ####[facility] ([id number])[address], [place] [address] Glucose Glucometer (BldC) [M ass/Vol]on 06-07-2024 Glucose [Mass/Vol] 110 mg/dL High 65-99 [facility] Glucose [Mass/Vol] 127 mg/dL High 65-99 [facility] Glucose [Mass/Vol] 152 mg/dL High 65-99 [facility] Laboratory comment Sadi (Tay rt)on 06-07-2024 UNLISTED LAB TEST Sent to reference lab Normal [facility] Comment on above: Result Comment: BY [place] ESPOSITO Lipid 1996 panelon Cholesterol [Mass/Vol] 195 mg/dL Normal 150-200 [facility] Comment on above: Performed By: #### TK Del Valle BCA, 63295-6 ####[facility] ([id number])[address] [place] [address] Cholesterol in HDL [Mass/Vol] 43 mg/dL Normal >39 [facility] Comment on above: Result Comment: HDL <40 mg/dL - High RiskHDL > or = 40mg/dL- DesirableHDL >60 mg/dL - Negative Risk Performed By: #### [place], 94793-8 ####[facility] ([id number])[address] [place] [address] Cholesterol in LDL [Mass/Vol] 120 mg/dL Normal <130 [facility] Comment on above: Result Comment: LDL <100 mg/dL - DesirableLDL >160 mg/dL - High Risk Performed By: #### [place], 65452-1 ####[facility] ([id number])[address] [place] [address] Cholesterol in VLDL [Mass/Vol] 32 mg/dL High 0-30 [facility] Comment on above: Performed By: #### C TK GIRALDO, 08047-8 ####[facility] ([id number])[address] [place] [address] CHOLESTEROL:HDL 4.5 Normal 1.0-5.0 [facility] Comment on above: Performed By: #### C ENZO, BMP, 09381-8 ####[facility] ([id number])[address], [place] [address] Triglyceride [Mass/Vol] 162 mg/dL High 27-150 [facility] Comment on above: Performed By: #### C ENZO, TK, 80035-2 ####[facility] ([id number])[address] [place] [address]73 MR BRAIN WO CONTon MR BRAIN WO CONT Normal [facility] PROTIME AND INRon 06-07-2024 INR Coag (PPP) [Relative time] 1.1 {INR} Normal 0.8-1.1 [facility] Comment on above: Performed By: #### P INR, 69840-4 ####[facility] ([id number])[address] [address] [place] [address]402 PT Coag (PPP) [Time] 12.4 s Normal 9.8-13.2 [facility] Comment on above: Performed By: #### P INR, 06736-4 ####[facility] ([id number])[address], [place] [address] aPTT Coag (PPP) [Time]on aPTT Coag (Bld) [Time] 31 s Normal 26-37 [facility] Comment on above: Performed By: #### P INR, 92133-7 ####[facility] ([id number])[address], [place] [address] BASIC METABOLIC PANLon 06-06 Anion gap [Moles/Vol] 8 mmol/L Normal 5-15 [facility] Comment on above: Performed By: #### C BCA, BMP, LIVR, 39171-3, 66289-7, 5643-2 #### [facility] ([id number]) [address] [place] [address]262 Calcium [Mass/Vol] 8.3 mg/dL Low 8.5-10.5 [facility] Comment on above: Performed By: #### C BCA, BMP, LIVR, 69812-7, 53978-5, 5643-2 #### [facility] ([id number]) [address] [place] [address] 57893 Chloride [Moles/Vol] 102 mmol/L Normal 98-109 [facility] Comment on above: Performed By: #### C BCA, BMP, LIVR, 18536-9, 46917-5, 5643-2 #### [facility] ([id number]) [address] [place] [address] 44084 CO2 [Moles/Vol] 22 mmol/L Normal 22-32 [facility] Comment on above: Performed By: #### C BCA, BMP, LIVR, 37511-1, 05940-8, 5643-2 #### [facility] ([id number]) [address] [place] [address] 36431 Creatinine [Mass/Vol] 0.89 mg/dL Normal 0.70-1.20 [facility] Comment on above: Result Comment: METH OD TRACEABLE TO IDMS STANDARD Performed By: #### C BCA, BMP, LIVR, 22189-7, 43321-7, 5643-2 #### [facility] ([id number]) [address] [place] [address]11 eGFR (CKD-EPI) NON-RACE DEPENDENT >90 Normal >59 [facility] Comment on above: Result Comment: Reported eGFR is based on the CKD-EPI 2020 equation that does not use a race coefficient. Performed By: #### C BCA, BMP, LIVR, 12620-7, 23757-4, 5643-2 #### [facility] ([id number]) [address] [place] [address] 66019 Glucose [Mass/Vol] 237 mg/dL High 65-99 [facility] Comment on above: Performed By: #### C BCA, BMP, LIVR, 48586-9, 46458-3, 5643-2 #### [facility] ([id number]) [address] [place] [address] 41940 Potassium [Moles/Vol] 4.1 mmol/L Normal 3.5-5.0 [facility] Comment on above: Performed By: #### C BCA, BMP, LIVR, 89911-4, 73193-6, 5643-2 #### [facility] ([id number]) [address] [place] [address] 14910 Sodium [Moles/Vol] 132 mmol/L Low 134-146 [facility] Comment on above: Performed By: #### C BCA, BMP, LIVR, 79743-1, 70268-9, 5643-2 #### [facility] ([id number]) [address] [place] [address] 08974 Urea nitrogen [Mass/Vol] 14 mg/dL Normal 5-27 [facility] Comment on above: Performed By: #### C BCA, BMP, LIVR, 97941-1, 62329-5, 5643-2 #### [facility] ([id number]) [address] [place] [address] 51848 CBC AND AUTO DIFFon 06-06-20 24 ABSOLUTE BASOPHIL 0.0 X10E9/L Normal 0.0-0.2 [facility] Comment on above: Performed By: #### C BCA, BMP, LIVR, 67943-2, 89478-0, 5643-2 #### [facility] ([id number]) [address] [place] [address] 25936 ABSOLUTE NEUTROPHIL 6.5 X10E9/L Normal 1.5-6.6 [facility] Comment on above: Performed By: #### C BCA, BMP, LIVR, 00849-1, 42634-9, 5643-2 #### [facility] ([id number]) [address] [place] [address] 28800 Basophils/100 WBC (Bld) 0.4 % Normal [facility] Comment on above: Performed By: #### C BCA, BMP, LIVR, 59464-7, 67181-2, 5643-2 #### [facility] ([id number]) [address] [place] [address] 39041 Eosinophils (Bld) [#/Vol] 0.0 10*3/uL Normal 0.0-0.4 [facility] Comment on above: Performed By: #### C BCA, BMP, LIVR, 98448-0, 78630-8, 5643-2 #### [facility] ([id number]) [address] [place] [address] 71738 Eosinophils/100 WBC (Bld) 0.1 % Normal [facility] Comment on above: Performed By: #### C BCA, BMP, LIVR, 92435-0, 74229-5, 5643-2 #### [facility] ([id number]) [address] [place] [address] 08791 Erythrocyte distribution width (RBC) [Ratio] 14.6 % Normal 11.5-15.0 [facility] Comment on above: Performed By: #### C BCA, BMP, LIVR, 60522-4, 77322-3, 5643-2 #### [facility] ([id number]) [address] [place] [address] 18899 Hematocrit (Bld) [Volume fraction] 43.9 % Normal 39-49 [facility] Comment on above: Performed By: #### C BCA, BMP, LIVR, 98518-0, 42007-9, 5643-2 #### [facility] ([id number]) [address] [place] [address] 72383 Hemoglobin (Bld) [Mass/Vol] 14.7 g/dL Normal 13.0-17.0 [facility] Comment on above: Performed By: #### C BCA, BMP, LIVR, 47659-3, 31422-8, 5643-2 #### [facility] ([id number]) [address] [place] [address] 64615 Lymphocytes (Bld) [#/Vol] 0.6 10*3/uL Low 1.0-3.5 [facility] Comment on above: Performed By: #### C BCA, BMP, LIVR, 49097-1, 94837-1, 5643-2 #### [facility] ([id number]) [address] [place] [address] 25859 Lymphocytes/100 WBC (Bld) 7.8 % Normal [facility] Comment on above: Performed By: #### C BCA, BMP, LIVR, 80932-4, 88485-0, 5643-2 #### [facility] ([id number]) [address] [place] [address] 25024 MCH (RBC) [Entitic mass] 30.1 pg Normal 27-34 [facility] Comment on above: Performed By: #### C BCA, BMP, LIVR, 08099-7, 66388-6, 5643-2 #### [facility] ([id number]) [address] [place] [address] 12077 MCHC (RBC) [Mass/Vol] 33.6 g/dL Normal 32-36 [facility] Comment on above: Performed By: #### C BCA, BMP, LIVR, 86276-6, 69104-9, 5643-2 #### [facility] ([id number]) [address] [place] [address] 13360 MCV (RBC) [Entitic vol] 90 fL Normal 80-100 [facility] Comment on above: Performed By: #### C BCA, BMP, LIVR, 85351-9, 07292-3, 5643-2 #### [facility] ([id number]) [address] [place] [address] 09574 Monocytes (Bld) [#/Vol] 0.3 10*3/uL Normal 0-0.9 [facility] Comment on above: Performed By: #### C BCA, BMP, LIVR, 04123-7, 20197-3, 5643-2 #### [facility] ([id number]) [address] [place] [address] 60632 Monocytes/100 WBC (Bld) 3.6 % Normal [facility] Comment on above: Performed By: #### C BCA, BMP, LIVR, 52321-6, 24429-7, 5643-2 #### [facility] ([id number]) [address] [place] [address] 46033 Neutrophils/100 WBC (Bld) 88.1 % Normal [facility] Comment on above: Performed By: #### C BCA, BMP, LIVR, 83259-5, 12977-7, 5643-2 #### [facility] ([id number]) [address] [place] [address] 11547 Platelet mean volume (Bld) [Entitic vol] 8.5 fL Normal 7-12 [facility] Comment on above: Performed By: #### C BCA, BMP, LIVR, 46812-6, 57383-2, 5643-2 #### [facility] ([id number]) [address] [place] [address] 43519 Platelets (Bld) [#/Vol] 175 10*3/uL Normal 150-450 [facility] Comment on above: Performed By: #### C BCA, BMP, LIVR, 61301-9, 60232-4, 5643-2 #### [facility] ([id number]) [address] [place] [address] 69917 RBC COUNT 4.89 X10E12/L Normal 4.10-5.70 [facility] Comment on above: Performed By: #### C BCA, BMP, LIVR, 52848-6, 08851-4, 5643-2 #### [facility] ([id number]) [address] [place] [address] 35711 WBC (Bld) [#/Vol] 7.3 10*3/uL Normal 4.0-11.0 [facility] Comment on above: Performed By: #### C BCA, BMP, LIVR, 65726-0, 53495-2, 5643-2 #### [facility] ([id number]) [address] [place] [address] BRAIN WO CONT STROKE ALER Ton 06-06-2024 CT BRAIN WO CONT STROKE ALERT CT BRAIN WO CONT STROKE ALERT CLINICAL HISTORY: Facial droop. Aphasia.. Neuro deficit, acute, stroke suspected TECHNIQUE: CT brain without intravenous contrast. Automated exposure control was utilized. All CT scans at this facility use dose modulation, iterative reconstruction, and/or weight based dosing when appropriate to reduce radiation dose to as low as reasonably achievable. COMPARISON: 01/04/2019 FINDINGS: There is no mass effect or midline shift. Ventricular system is normal in size configuration. 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 Periventricular white matter change. No intracranial hemorrhage. Focal loss of simon-white matter differentiation in the left frontal lobe suspect acute/subacute infarct. No definite hyperdense vessels. Brainstem and cerebellum are negative. Vascular calcifications are noted. Soft tissues in the skull base and surrounding the calvarium are negative. Intraorbital contents include evidence of prior cataract surgery. No air-fluid levels in the paranasal sinuses. No mastoid effusion. No skull fracture osseous lesions. IMPRESSION: * Focal loss of simon-white matter differentiation left frontal lobe suspicious for acute/subacute MCA territory infarct. Finalized by Darien Gomez MD on 06/06/2024 7:35 AM Normal [facility] CT CEREBRAL PERF ANALYSISon 06-06-2024 CT CEREBRAL PERF ANALYSIS Normal [facility] CT CTA CAROTIDon 06-06-[address] CT[address] CAROT[address] CTA CAROTID CLINICAL HISTORY: Neuro deficit, acute, stroke suspected. COMPARISON: None available. TECHNIQUE: Axial CT images were obtained through the neck following the uneventful administration of intravenous contrast. Sagittal and coronal reformatted images were performed. MIP and volume rendered images were also post processed at a separate workstation to further define anatomy and potential pathology. 100 mL of Omnipaque 350 intravenous contrast without complication. Degree of luminal narrowing characterized using NASCET criteria. Hemodynamically significant stenosis characterized as moderate or greater (>50%) narrowing. FINDINGS: Mild motion artifact. Aortic arch: Normal caliber. Common trunk of the innominate artery and left common carotid, a normal variant. Pulmonary artery: Mildly dilated measuring up to 3.3 cm, which can be seen with pulmonary arterial hypertension. Brachiocephalic artery: Patent. Normal caliber. Right subclavian artery: Patent. Normal caliber. Right common carotid artery: Patent. Normal caliber. Left common carotid artery: Patent. Normal caliber. Left subclavian artery: Patent. Normal caliber. Carotid bifurcations: Calcifications without significant flow-limiting stenosis. Right internal carotid artery: Patent. Normal caliber. Calcifications within the cavernous canal without significant flow limiting stenosis. Left internal carotid artery: Patent. Normal caliber. Calcifications within the cavernous canal without significant flow limiting stenosis. Vertebral arteries: Decreased caliber right V4 segment. Severe right and moderate left ostial narrowing at the origin, with distal reconstitution, possibly exacerbated by motion artifact . Other : Moderate narrowing left external carotid artery at the bifurcation with distal reconstitution. IMPRESSION: 1. No acute arterial occlusion, dissection, or aneurysm. 2. Severe right and moderate left ostial narrowing origin of the vertebral arteries, with distal reconstitution. 3. Moderate narrowing right V4 vertebral artery. 4. CT Brain and CTA head findings dictated separately. All CT scans at this facility use dose modulation, iterative reconstruction, and/or weight based dosing when appropriate to reduce radiation dose to as low as reasonably achievable. Finalized by Ravin Feliciano on 06/06/2024 7:55 AM Normal [facility] CT CTA HEADon 06-06-[address] CTA HEAD CT angiogram head with contrast History: Stroke, neurologic deficit. Technique: CT angiogram of the head was performed following intravenous administration of 100 cc Omnipaque 350 nonionic intravenous contrast. 3-D maximum intensity projection images generated and reviewed under concurrent physician supervision. Automated exposure control was utilized. Arterial blood flow was measured to assist the stroke clinical team in the diagnosis of large vessel occlusion in patients undergoing screening for acute ischemic stroke using Rapid AI software when clinically indicated. Findings: Head and neck dictated separately. Substantial venous contamination obscures assessment. Calcifications cavernous and paraclinoid internal carotid arteries, mild associated narrowing. Intracranial internal carotid arteries, anterior, middle, posterior cerebral arteries. Calcifications bilateral vertebral arteries, moderate to severe narrowing proximal right V4 segment vertebral artery mild associated narrowing. No sizable, saccular aneurysm. Sequelae nonacute ischemic events. Impression: Notable calcific agent bilateral vertebral arteries, moderate severe narrowing proximal right V4 segment vertebral artery [presumably related to atherosclerotic plaque]. No convincing acute large vessel occlusion of the major [place]-sp[place] of [place] arterial structures. If there is persistent concern for ischemia, recommend MR. Sequelae nonacute ischemic events. All CT scans at this facility use dose modulation, iterative reconstruction, and/or weight based dosing when appropriate to reduce radiation dose to as low as reasonably achievable. Finalized by Alon Alejo MD on 06/06/2024 7:43 AM Normal [facility] ETHANOLon 06-06-2024 Ethanol [Mass/Vol] mg/dL Normal 0.00-0.08 [facility] Comment on above: Result Comment: This report is intended for use in clinical monitoring or management of patients. Performed By: #### C BCA, BMP, LIVR, 66995-6, 33283-3, 5643-2 #### [facility] ([id number]) [address] [place] [address] Glucose Glucometer (BldC) [M ass/Vol]on 06-06-2024 Glucose [Mass/Vol] 171 mg/dL High 65-99 [facility] Glucose [Mass/Vol] 155 mg/dL High 65-99 [facility] Glucose [Mass/Vol] 175 mg/dL High 65-99 [facility] Glucose [Mass/Vol] 214 mg/dL High 65-99 [facility] HGB A1C (GLYCO-HGB)on 2023 Glucose [Mass/Vol] 143 mg/dL Normal [facility] Comment on above: Performed By: #### H A1C ####[facility] ([id number])[address] [facility], [address] [place] [address] 25864 HbA1c (Bld) [Mass fraction] 6.6 % High 4.4-5.6 [facility] Comment on above: Result Comment: NOTE ADA Guidelines Result HgbA1c Normal : less than 5.7 % Prediabetes : 5.7 % to 6.4 % Diabetes : > 6.4 %Use with caution in patients with abnormal hemoglobin variants asthe half-life of red blood cells and in vivo glycation rates areaffected. Performed By: #### H A1C ####[facility] ([id number])[address], [address] [place] [address] 31199 LIVER PANELon 06-06-2024 Albumin [Mass/Vol] 3.5 g/dL Normal 3.2-5.3 [facility] Comment on above: Performed By: #### C BCA, BMP, LIVR, 87033-0, 93295-7, 5643-2 #### [facility] ([id number]) [address] [place] [address] ALP [Catalytic activity/Vol] 54 U/L Normal 39-130 [facility] Comment on above: Performed By: #### C BCA, BMP, LIVR, 93188-3, 75018-7, 5643-2 #### [facility] ([id number]) [address] [place] [address] 25466 ALT [Catalytic activity/Vol] 15 U/L Normal 0-40 [facility] Comment on above: Performed By: #### C BCA, BMP, LIVR, 01929-7, 92300-5, 5643-2 #### [facility] ([id number]) [address] [place] [address] 85137 AST [Catalytic activity/Vol] 22 U/L Normal 0-41 [facility] Comment on above: Performed By: #### C BCA, BMP, LIVR, 03051-6, 30768-6, 5643-2 #### [facility] ([id number]) [address] [place] [address] 33689 Bilirubin [Mass/Vol] 0.8 mg/dL Normal 0.3-1.2 [facility] Comment on above: Performed By: #### C BCA, BMP, LIVR, 62323-8, 71423-5, 5643-2 #### [facility] ([id number]) [address] [place] [address] 33602 Bilirubin.direct [Mass/Vol] 0.1 mg/dL Normal 0.0-0.4 [facility] Comment on above: Performed By: #### C BCA, BMP, LIVR, 72440-1, 70689-2, 5643-2 #### [facility] ([id number]) [address] [place] [address] 34938 Protein [Mass/Vol] 6.7 g/dL Normal 6.0-8.0 [facility] Comment on above: Performed By: #### C BCA, BMP, LIVR, 24582-7, 00735-0, 5643-2 #### [facility] ([id number]) [address] [place] [address] 46189 Laboratory comment Sadi (Repo rt)on 06-06-2024 UNLISTED LAB TEST RLAB Normal [facility] Comment on above: Result Comment: BY [place] ESEASYLWIA Lactate (P chauncey) [Moles/Vol]o n 06-06-2024 LACTATE W/REFLEX 2.6 mmol/L High 0.4-2.0 [facility] Comment on above: Performed By: #### 3 2133-1 ####[facility] ([id number])[address] [place] [address] 61578 MR BRAIN WO CONTon MR BRAIN WO CONT Normal [facility] Natriuretic peptide B [Mass/ Vol]on 06-06-2024 Natriuretic peptide B (Bld) [Mass/Vol] 30 pg/mL Normal <100.0 [facility] Comment on above: Performed By: #### C BCA, BMP, LIVR, 55075-6, 72702-7, 5643-2 #### [facility] ([id number]) [address] [place] [address] 64759 PROTIME AND INRon 06-06-2024 INR Coag (PPP) [Relative time] 1.1 {INR} Normal 0.8-1.1 [facility] Comment on above: Performed By: #### P INR, 86972-5 ####[facility] ([id number])[address], [address] [place] [address] 38270 PT Coag (PPP) [Time] 12.3 s Normal 9.8-13.2 [facility] Comment on above: Performed By: #### P INR, 82018-9 ####[facility] ([id number])[address], [place] [address] Troponin I.cardiac High sens itivity method [Mass/Vol]on 06-06-2024 1 HOUR TROP I, HIGH SENSITIVITY 15 ng/L Normal <21 [facility] Comment on above: Performed By: #### 8 9579-7 ####[facility] ([id number])[address] [place] [address] 74857 TROPONIN I, HIGH SENSITIVITY 17 ng/L Normal <21 [facility] Comment on above: Performed By: #### C BCA, BMP, LIVR, 09278-2, 46292-8, 5643-2 #### [facility] ([id number]) [address] [place] [address] 29681 XR CHEST 1 VWon 06-06-2024 XR CHEST 1 VW XR CHEST 1 VW HISTORY: Shortness of breath COMPARISON: Chest x-ray 01/04/2019 FINDINGS: Portable AP upright view of the chest was performed. Cardiac silhouette is grossly within normal limits. Diminished lung volumes accentuate bibasilar atelectasis and vascular crowding. No significant airspace consolidation, pleural effusion or pneumothorax. IMPRESSION: * Mild congestion and edema, accentuated by decreased level of inspiration. Finalized by Trevor Weaver MD on 06/06/2024 7:49 AM Normal [facility] aPTT Coag (PPP) [Time]on aPTT Coag (Bld) [Time] 30 s Normal 26-37 [facility] Comment on above: Performed By: #### P INR, 23203-3 ####[facility] ([id number])[address] [place] [address], [address] [place] [address] 64765 Vital Signs Date Time Vital Sign Value Performing Clinician Facility 11-30-2024 13:19-0500 Diastolic blood pressure 86 mm[Hg] Janell Trimble MD Work Phone: [facility] 11-30-2024 13:19-0500 Heart rate 86 /min Janell Trimble MD Work Phone: [facility] 11-30-2024 13:19-0500 Systolic blood pressure 117 mm[Hg] Janell Trimble MD Work Phone: [facility] 09-07-2024 13:37-0500 Diastolic blood pressure 48 mm[Hg] Janell Trimble MD Work Phone: [place] 09-07-2024 13:37-0500 Heart rate 90 /min Janell Trimble MD Work Phone: [place] 09-07-2024 13:37-0500 Systolic blood pressure 130 mm[Hg] Janell Trimble MD Work Phone: [place] 07-14-2024 08:47-0400 Body height 170.2 cm Nisa Sabillon MD Work Phone: [place] 07-14-2024 08:47-0400 Body mass index (BMI) [Ratio] 31.17 kg/m2 Nisa Sabillon MD Work Phone: [place] 07-14-2024 08:47-0400 Body temperature 99 [degF] Nisa Sabillon MD Work Phone: [place] 07-14-2024 08:47-0400 Body weight 90.27 kg Nisa Sabillon MD Work Phone: [place] 07-14-2024 08:47-0400 Diastolic blood pressure 72 mm[Hg] Nisa Sabillon MD Work Phone: [place] 07-14-2024 08:47-0400 Heart rate 104 /min Nisa Sabillon MD Work Phone: [place] 07-14-2024 08:47-0400 SaO2% (BldA) [Mass fraction] 94 % Nisa Sabillon MD Work Phone: [place] 07-14-2024 08:47-0400 Systolic blood pressure 138 mm[Hg] Nisa Sabillon MD Work Phone: [place] 06-26-2024 20:28-0400 SaO2% (BldA) [Mass fraction] 95 % [facility] Comment on above: Performed By: #### ABG ####[facility] ([id number])[address] [place] [address] Encounters Encounter Date Encounter Type Care Provider Facility Start: 11-30-2024 End: 11-30-2024 Office outpatient visit 25 minutes Janell Trimble MD Work Phone: [facility] Comment on above: 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); Weakness as late effect of cerebrovascular accident (CVA); Seizure-like activity (CMS-HCC) Start: 11-30-2024 End: 11-30-2024 ambulatory [facility] Start: 09-28-2024 End: 09-28-2024 ambulatory [facility] Facility:[facility] Start: 09-21-2024 End: 09-22-2024 Telephone encounter Gem Luevano RN [facility] Start: 09-20-2024 End: 09-20-2024 Telephone encounter Keny Zheng [employer] Work Phone: [facility] Start: 09-09-2024 End: 10-26-2024 Telephone encounter Faby Franco [facility] Comment on above: concerns Start: 09-07-2024 End: 09-07-2024 ambulatory [facility] Comment on above: Cerebrovascular acci dent (CVA) due to occlusion of right anterior cerebral artery ([facility]) (Primary Dx); Other cerebrovascular vasospasm and vasoconstriction Arrived Start: 09-07-2024 End: 09-07-2024 Office outpatient visit 25 minutes Janell Trimble MD Work Phone: [facility] Comment on above: Hx of ischemic right EMILIA stroke (Primary Dx) Start: 09-07-2024 End: 09-07-2024 ambulatory [facility] Start: 08-14-2024 End: 08-14-2024 Telephone encounter Keny Zheng [employer] Work Phone: [facility] Start: 08-11-2024 End: 08-11-2024 Telephone encounter Keny Zheng [employer] Work Phone: [facility] Start: 07-19-2024 End: 07-19-2024 ambulatory [facility] Start: 07-19-2024 End: 07-19-2024 ambulatory [facility] Start: 07-14-2024 End: 07-14-2024 Office outpatient visit 25 minutes Nisa Sabillon MD Work Phone: [facility] Comment on above: Acute deep vein thro mbosis (DVT) of distal vein of both lower extremities (CMS-HCC) (Primary Dx); 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 ([facility]) Start: 07-04-2024 End: 07-04-2024 Telephone encounter Gem Luevano RN [facility] Start: 07-04-2024 End: 07-04-2024 [facility] Start: 07-03-2024 End: 07-03-2024 Orders Only Jeannette Chun PA-C Work Phone: [facility] Comment on above: Lesion of skin of no se (Primary Dx) Start: 07-02-2024 End: 07-02-2024 [facility] Start: 06-30-2024 End: 06-30-2024 Telephone encounter Katie Ricketts [facility] Comment on above: previous peg placeme nt Start: 06-28-2024 End: 06-28-2024 Telephone encounter Krystle Becker [facility] Comment on above: Blood Sugar 88 Sched uled 28 Units of Humalog Start: 06-23-2024 End: 06-23-2024 Anticoagulant drug monitoring Osmar Mayer [facility] Work Phone: [facility] Comment on above: Acute deep vein thro mbosis (DVT) of distal vein of both lower extremities ([facility]) (Primary Dx) Start: 06-11-2024 End: 06-11-2024 Telephone encounter [facility] Comment on above: Consult; PEG tube pl acement Start: 06-06-2024 End: 06-06-2024 Documentation procedure Nancy Quinn RN [facility] Start: 06-06-2024 End: 07-02-2024 ambulatory UNKNOWN PROVIDER Facility:[facility] Start: 06-06-2024 End: 07-01-2024 Evaluation and management of inpatient HYUN OSCAR [facility] Start: 06-06-2024 End: 06-07-2024 Emergency department patient visit XU GOMEZ [facility] Start: 06-02-2024 End: 06-03-2024 Telephone encounter Raina Garcia APRN-[employer] Work Phone: [facility] - Family Medicine Procedures Date Procedure Procedure Detail Performing Clinician Start: 11-30-2024 Adult depression screening assessment Janell Trimble MD Work Phone: Start: 09-07-2024 Adult depression screening assessment [facility] Nurse Plan of Treatment Date Care Activity Detail Author Start: 11-15-2026 DTaP,Tdap and Td Vaccines (3 - Td or Tdap) DTaP,Tdap and Td Vaccines (3 - Td or Tdap) [place] Start: 11-30-2025 Depression Screening Depression Scre ening [facility] Start: 11-30-2025 Tobacco Screening Tobacco Screening [place] Start: 09-07-2025 Depression Screening Depression Scre [facility] Start: 09-07-2025 Tobacco Screening Tobacco Screening [place] Start: 07-14-2025 Adult BMI Screening Adult BMI Screen ing [place] Start: 07-14-2025 Tobacco Screening Tobacco Screening [place] Start: 07-01-2025 Adult BMI Screening Adult BMI Screen ing [place] Start: 06-30-2025 Adult BMI Screening Adult BMI Screen ing [place] Start: 06-27-2025 Adult BMI Screening Adult BMI Screen ing [place] Start: 06-24-2025 Tobacco Screening Tobacco Screening [place] Start: 06-23-2025 Adult BMI Screening Adult BMI Screen ing [place] Start: 06-15-2025 Tobacco Screening Tobacco Screening [place] Start: 06-11-2025 Adult BMI Screening Adult BMI Screen ing [place] Start: 06-06-2025 Adult BMI Screening Adult BMI Screen ing [place] Start: 06-06-2025 Tobacco Screening Tobacco Screening [place] Start: 01-12-2025 End: 01-12-2025 Patient encounter procedure 01/12/2025 8:30 AM EDT Office Visit [facility] [facility] [address] [place] [id number] Nisa Sabillon MD [address], [address] [address] [facility] Start: 11-30-2024 End: 11-30-2024 Patient encounter procedure 11/30/2024 1:30 PM EST Office Visit [facility] [address] [place] [address] Janell Trimble MD [address] [facility], [address] [place] [address] [facility] Start: 11-30-2024 End: 11-30-2024 Telemedicine consultation with patient 11/30/2024 1:30 PM EST Telemedicine [facility] [address] [place] [address] [place] [address] [place] [address], [address] [place] [address] [facility] Start: 09-07-2024 End: 09-07-2025 Wireless Telemetry (In Office) [facility] Work Phone: Comment on above: Expected: 09/07/2024 , Expires: 09/07/2025 Start: 08-10-2024 End: 08-10-2024 Patient encounter procedure 08/10/2024 3:30 PM EDT Office Visit [facility] [address] [place] [phone] Janell Trimble MD [address] [facility], [address] [place] [id number] [facility] Start: 08-01-2024 End: 08-01-2024 Patient encounter procedure 08/01/2024 2:00 PM EDT Office Visit [facility] - [facility] [address] [place] [address] Raina Garcia, ACQUISITION CONSULTANT-SEMICONDUCTOR PROCESSING GROUP LEADER [address] [place] [address] [facility] Start: 07-14-2024 End: 07-14-2024 Patient encounter procedure 07/14/2024 8:30 AM EDT Office Visit [facility] [address] [place] [phone] Nisa Sabillon MD [address], [address] [address] [facility] Start: 07-13-2024 End: 07-13-2024 Patient encounter procedure 07/13/2024 3:00 PM EDT Office Visit [facility] [address] [place] [phone] Janell Trimble MD [address] [facility], [address] [place] [address] [facility] Start: 06-12-2024 COVID-19 Vaccine ( season) COVID-19 Vaccine ( season) [place] Start: 06-12-2024 COVID-19 Vaccine ( season) COVID-19 Vaccine ( season) [place] Start: 06-12-2024 Influenza vaccination Influenza Vacc ine [place] Start: 11-15-2023 COVID-19 Vaccine ( season) COVID-19 Vaccine () [place] Start: 08-06-2023 Administration of varicella zoster vaccine [place] Start: 06-12-2023 COVID-19 Vaccine ( season) COVID-19 Vaccine ( season) [place] Start: 06-09-2023 Adult BMI Screening Adult BMI Screen ing [place] Start: 06-09-2023 Tobacco Screening Tobacco Screening [place] Start: 2022 Fall Risk Screening Fall Risk Screen ing [place] Start: 2007 Administration of varicella zoster vaccine Zoster (Shingles) Vaccine (1 of 2) [place] Start: 1975 Adult BMI Follow Up Plan Adult BMI F ollow Up Plan [place] Start: 1975 Diabetic foot examination Diabetic Foot Exam [place] Start: 1969 Depression Screening Depression Scre ening [place] Start: 1957 Glaucoma screening Diabetic Op hthalmology Exam [place] Start: 1957 Medicare Annual Well ness Visit Medicare Annual Wellness Visit [place] Start: 1957 Statin Use: Cardiovascular Statin Use: Cardiovascular [place] Start: 1957 Statin Use: Diabetic Statin Use: Dipika betic [place] Start: 1957 Urine screening for protein Urine Microalbumin [place] Immunizations Immunization Date Immunization Notes Care Provider Fa cility 06-11-2023 Pneumococcal Conjuga te 20-valent Nancy Quinn RN [place] 06-11-2023 zoster vaccine recombinant Nancy Quinn RN [place] 06-11-2023 zoster vaccine, unspecified formulation Nancy Quinn RN [place] 06-04-2023 Influenza Vaccine, Quadrivalent, Adjuvanted Nancy Quinn RN [place] 06-04-2023 influenza virus vaccine, unspecified formulation Nancy Quinn RN [place] 2022 Influenza, High-dose , Quadrivalent Nancy Quinn RN [place] 06-30-2021 influenza, injectabl e, quadrivalent, preservative free Nancy Quinn RN [place] 06-30-2021 influenza virus vaccine, unspecified formulation Raina ROSARIO Work Phone: [place] 06-21-2020 influenza, injectabl e, quadrivalent, preservative free Nancy Quinn RN [place] 05-31-2019 influenza, seasonal, injectable Nancy Quinn RN [place] 07-01-2017 influenza, seasonal, injectable, preservative free Nancy Quinn RN [place] 11-15-2016 tetanus toxoid, redu mitchel diphtheria toxoid, and acellular pertussis vaccine, adsorbed Nancy Quinn RN [place] 05-25-2015 influenza, seasonal, injectable, preservative free Nancy Quinn RN [place] 05-25-2015 tetanus toxoid, redu mitchel diphtheria toxoid, and acellular pertussis vaccine, adsorbed Nancy Quinn RN [place] Payers Date Payer Category Payer Self-pay 2023 Medicare (Managed Care) [employer] MEDICARE [id number] 2020 Medicare [employer] MEDICARE UHC MEDICARE DUAL COMPLETE [id number] 2020-Present [phone] [address] [address] [place] [address] [id number] 2020 Medicare HMO [facility] MEDICARE [id number] 2020 Medicare [id number] 2019 Unknown [id number] 2018 Medicaid [id number] 2018 Unknown [id number] 2007 Medicare [id number] 1957 Unknown [id number] 2.16840.1.571341.3.579. 2.1286 1957 Unknown [id number] 2.16840.1.662380.3.579. 2.1286 1957 Unknown [id number] 2.16.840.1.034445.3.579. 2.1286 1957 Unknown [id number] 2.16.840.1.293052.3.579. 2.1286 1957 Unknown [id number] 2.16.840.1.982453.3.579. 2.1286 1957 Unknown [id number] 2.16.840.1.307795.3.579. 2.732 1957 Unknown [id number] 2.16.840.1.276137.3.579. 2.1286 1957 Unknown [id number] 2.16.840.1.498751.3.579. 2.1286 1957 Unknown [id number] 2.16.840.1.596844.3.579. 2.1286 1957 Unknown [id number] 2.16.840.1.035552.3.579. 2.1286 1957 Unknown [id number] 2.16.840.1.676504.3.579. 2.1286 1957 Unknown [id number] 2.16.840.1.239852.3.579. 2.1286 1957 Unknown [id number] 2.16.840.1.971054.3.579. 2.1286 1957 Unknown [id number] 2.16.840.1.888508.3.579. 2.1286 1957 Unknown [id number] 2.16.840.1.146283.3.579. 2.1286 1957 Unknown [id number] 2.16840.1.630801.3.579. 2.128 Unknown [id number] 2.16.840.1.502467.3.579. 2.531 Social History Date Type Detail Facility Tobacco smoking stat [facility] Tobacco smoking consumption unknown [place] Start: 1955 Sex assigned at Not on file [facility] Start: 11-22-2020 End: 06-06-2024 Gender identity Not on file [place] Start: 06-09-2022 Tobacco smoking stat [facility] Never smoked tobacco [place] Start: 06-09-2022 Tobacco use and exposure Smokeless tobacco non-user [place] Start: 09-07-2024 End: 11-30-2024 Alcoholic beverage intake Ex-drinker (finding) [place] Start: 11-22-2020 End: 06-06-2024 History of Social function [place] Has the [employer], [employer], or water [employer] threatened to shut off services in your home in past 12Mo Patient unable to answer [place] How often to you hav e a drink containing alcohol? Never [place] Start: 05-17-2015 Sex Male (finding) [facility] Medical Equipment Procedure Code Equipment Code Equipment Origin al Text Equipment Identifier Dates Filter Embl 49mm 65cm Vc Rdpq Preld Flsh Sdprt Intro Strl Rpl [id number] - [id number] , [id number] [facility] Start: 06-24-2024 Goals Date Patient Goal Desired Activity /State Personal health goal Comment on above: Formatting of this n ote might be different from the original. Evaluation of progress towards goal: pt will likely need SNF vs IPR pending progress Clinical Notes 06-02-2024 to 11-30-2024 Janell Trimble MD - 11/30/2024 1:30 PM ESTPatient InstructionsTelephone Encounter - Gem Luevano RN - 09/21/2024 12:46 PM ESTTelephone Encounter - Rachna Bishop - 09/21/2024 12:46 PM EST Note Date & Type Note Facility 11-30-2024 History of Presen t illness Narrative Images from the original note were not included. [facility] [address] [facility] [address] Patient: Ranjeet Mcneil Date of : 1955 Encounter Date: 11/30/2024 No care team lead to display Reason for visit: History of Present Illness: Subjective: Ranjeet Mcneil is a right handed 69 y.o. male with past medical history significant for T2Dm, CAD, Hx of DE, Hx of prior ischemic CVA x 2 who was hospitalized in May through June 2024 for large right EMILIA stroke 2/2 right A2 occlusion with partial thrombus in the proximal A2. His hospitalization was complicated by aspiration pneumonia, dysphagia requiring PEG tube placement, extensive b/l DVT. He was placed on anticoagulation for his DVT and unfortunately suffered a hemorrhagic bleed in the right parietal lobe. Ford subsequently had IVC filter placed. Patient last seen in August 2024. Patient is being seen in clinic today for routine follow up. Ranjeet Mcneil is accompanied in the office by his staff from facility. Patient is alert. He is able to follow simple commands. He is quite purposeful with his right side. He does have some movement of the left upper extremity. Left arm is quite contracted. He requires feeding tube still for nutrition and medication administration. He requires damaso lift for transfers but is in a wheelchair. Patient able to count to 5 with me. He was able to write his name, his sons name and his wifes name on paper. Per papers that were sent, patient developed seizure like activity at some point. He was initiated on keppra 500 bid. I am unclear if he is seeing a neurologist in another area for seizures. Past Medical, Family, Surgical, and Social History Update: The following portions of the patient's history were reviewed and updated as appropriate: allergies, current medications, past family history, past medical history, past social history, past surgical history and problem list. Review of Systems Review of Systems Constitutional: Negative for decreased appetite, malaise/fatigue, weight gain and weight loss. HENT: Negative for nosebleeds. Eyes: Negative for blurred vision, double vision, vision loss in left eye, vision loss in right eye and visual disturbance. Cardiovascular: Negative for irregular heartbeat, leg swelling, near-syncope, palpitations and syncope. Respiratory: Negative for shortness of breath and sleep disturbances due to breathing. Hematologic/Lymphatic: Negative for bleeding problem. Does not bruise/bleed easily. Skin: Negative for poor wound healing. Musculoskeletal: Negative for falls, muscle cramps, muscle weakness, myalgias and neck pain. Gastrointestinal: Negative for dysphagia. Neurological: Negative for aphonia, difficulty with concentration, disturbances in coordination, dizziness, focal weakness, headaches, light-headedness, loss of balance, numbness, paresthesias, seizures, sensory change, vertigo and weakness. Psychiatric/Behavioral: Negative for altered mental status, depression and memory loss. The patient does not have insomnia and is not nervous/anxious. Past Medical History: Diagnosis Date Coronary artery disease Diabetes mellitus type 2, controlled ([facility]) Hypertension Myocardial infarction ([facility]) Stroke (cerebrum) ([facility]) 06/06/2024 No family history on file. Past Surgical History: Procedure Laterality Date CORONARY STENT PLACEMENT X 5 ESOPHAGOGASTRODUODENOSCOPY INSERTION PEG TUBE N/A 06/15/2024 Performed by Ron Burks MD at [facility] Insert inferior vena cava filter, all-inclusive N/A 06/24/2024 Performed by Madeline Velasquez MD at [facility] Neuro Invasive N/A 06/06/2024 Performed by Janell Trimble MD at [facility] Stroke Thrombectomy N/A 06/06/2024 Performed by Janell Trimble MD at [facility] Vascular Invasive N/A 06/24/2024 Performed by Madeline Velasquez MD at [facility] VASECTOMY Current Outpatient Medications Medication Sig Dispense Refill acetaminophen (TYLENOL EXTRA STRENGTH) 500 mg tablet Take 1 tablet (500 mg total) by mouth every 8 (eight) hours as needed for pain. amLODIPine (NORVASC) 5 mg tablet Take 1 tablet (5 mg total) by mouth in the morning. aspirin 81 mg Take 1 tablet (81 mg total) by mouth in the morning. atorvastatin (LIPITOR) 40 mg tablet Administer 1 tablet (40 mg total) per tube nightly. busPIRone (BUSPAR) 5 mg tablet Take 1 tablet (5 mg total) by mouth 3 (three) times a day. cholecalciferol, vitamin D3, (VITAMIN D3) 5,000 units capsule Administer 1 capsule (5,000 Units total) per tube in the morning. famotidine (PEPCID) 20 mg tablet Administer 1 tablet (20 mg total) per tube in the morning and 1 tablet (20 mg total) before bedtime. glucagon HCL 1 mg/mL injection Inject 1 mL (1 mg total) into the appropriate muscle as needed for low blood sugar (blood glucose less than 70 mg/dL and unconscious or NPO without IV access.). insulin lispro (HumaLOG) 100 unit/mL insulin pen Inject 23 Units under the skin every 4 (four) hours. ipratropium-albuteroL (DUONEB) 0.5 mg-3 mg(2.5 mg base)/3 mL nebulizer Inhale 3 mL by nebulization every 6 (six) hours as needed for wheezing. levETIRAcetam (KEPPRA) 100 mg/mL solution Take 10 mg/kg by mouth in the morning and 10 mg/kg before bedtime. losartan (COZAAR) 100 mg tablet Administer 1 tablet (100 mg total) per tube in the morning. melatonin (CIRCADIN) 5 mg tablet Take 1 tablet (5 mg total) by mouth nightly. metoprolol tartrate (LOPRESSOR) 25 mg tablet Administer 1 tablet (25 mg total) per tube in the morning and 1 tablet (25 mg total) before bedtime. PARoxetine (PAXIL) 10 mg tablet polyethylene glycol (GLYCOLAX) 17 gram packet Administer 17 g per tube in the morning. risperiDONE (RisperDAL) 1 mg tablet sennosides 8.8 mg/5 mL syrup Administer 5 mL (8.8 mg total) per tube nightly. traZODone (DESYREL) 50 mg tablet Take 1 tablet (50 mg total) by mouth nightly. valproate (DEPAKENE) 250 mg/5 mL syrup bacitracin 500 unit/gram packet Apply 1 Application topically in the morning and 1 Application before bedtime. (Patient not taking: Reported on 07/14/2024) insulin lispro (HumaLOG) 100 unit/mL insulin pen Inject 2-10 Units under the skin every 4 (four) hours. (Patient not taking: Reported on 11/30/2024) LORazepam (ATIVAN) 0.5 mg tablet Take 1 tablet (0.5 mg total) by mouth every 8 (eight) hours as needed for anxiety. (Patient not taking: Reported on 11/30/2024) QUEtiapine (SEROquel) 25 mg tablet Take 1 tablet (25 mg total) by mouth in the morning and 1 tablet (25 mg total) before bedtime. (Patient not taking: Reported on 11/30/2024) No current facility-administered medications for this visit. (All medications reviewed and updated by provider since last office visit or hospitalization) Tobacco History: Social History Tobacco Use Smoking Status Never Smokeless Tobacco Never (If patient a smoker, smoking cessation counseling offered) Social History: Social History Substance and Sexual Activity Alcohol Use Not Currently Allergies: No Known Allergies Objective: BP 117/86 Pulse 86 Last Neuro Imaging: No recent neuro imaging. Physical Exam: Neurology Physical Exam NIH Stroke Scale 1a Level of consciousness: 0=alert; keenly responsive 1b. LOC questions: 2=Performs neither task correctly 1c. LOC commands: 1=Performs one task correctly 2. Best Gaze: 0=normal 3. Visual: 0=no vision loss 4. Facial Palsy: 2=Partial paralysis (total or near total paralysis of the lower face) 5a. Motor left arm: 2=Some effort against gravity, limb cannot get to or maintain (if cured) 90 (or 45) degrees, drifts down to bed, but has some effort against gravity 5b. Motor right arm: 1=Drift, limb holds 90 (or 45) degrees but drifts down before full 10 seconds: does not hit bed 6a. motor left le=No movement 6b Motor right le=Some effort against gravity, limb cannot get to or maintain (if cured) 90 (or 45) degrees, drifts down to bed, but has some effort against gravity 7. Limb Ataxia: 0=Absent 8. Sensory: 0=Normal; no sensory loss 9. Best Language: 2=Severe aphasia; all communication is through fragmentary expression; great need for inference, questioning, and guessing by the listener 10. Dysarthria: 2=Severe; patient speech is so slurred as to be unintelligible in the absence of or our of proportion to any dysphagia, or is mute/anarthric 11. Extinction and Inattention: 0=No abnormality Total: 18 General Appearance: alert,cooperative with delay Head: Normocephalic, without obvious abnormality, atraumatic Eyes: EOMI, blinks to threat bilaterally ENT: ENT exam normal Lungs: Non-labored Heart: regular rate Extremities: left arm contracture Skin: Skin color, texture, turgor normal. No rashes or lesions Neurologic: see NIHSS MRS:5 PHQ9: Depression Screening Total Score: 0- not able to be completed Risk Factor Management: Hypertension target range 130-140/70-80 Lipid range - LDL < 70 and checked every 6 months, fasting Diabetes - HgB A1C <7 Assessment/Plan: Patient Active Problem List Diagnosis Stroke (cerebrum) ([facility]) Dysphagia Acute deep vein thrombosis (DVT) of distal vein of both lower extremities ([facility]) Myocardial infarction ([facility]) Right EMILIA ischemic stroke 2/2 to A2 occlusion s/p MT and partial thrombus in proximal A2, right parietal IPH 2/2 to anticoagulation use - Etiology of patients stroke is ESUS, possible ICAD, vs cardioembolic versus hypercoaguable - continue 81 mg aspirin - event monitor showed short run of nSVT- no afib - patient is not a good candidate for Anticogulation as he spontaneously bled - restart PT/OT/ST urgently. Patient is able to participate in therapy. He follows some commands with increased processing time. He was able to write both office appointments on paper with his right hand. Recommend paper and pen available at bedside at all times Recommend out of bed to chair for all meals and for therapy - no further work up is needed. 2. Right nare lesion - basal cell carcinoma 3. New onset seizures? - patient will need to see Neurology for management. If further breakthrough seizures occur he should be hospitalized. - referral to neurology 4. Hx of extensive BLE DVTs s/p IVC filter - f/u with vascular surgery 5. Hypertension - Advise continuing to monitor for target SBP <130 - Continue antihypertensive regimen 5. Hyperlipidemia- low fat/low cholesterol diet -Continue statin therapy -Recommend diet and exercise -Follow up with PCP for lipid management 6. Diabetes - Recommend strict glycemic control -Continue to monitor 7. Left upper extremity contracture - patient needs to follow up with neurology as he appears to be an excellent candidate for botox of the left shoulder, elbow wrist. - recommend splinting by OT 8. Dysphagia - aggressive speech therapy recommended - patient at discharge from the hospital was on PEG with puree diet! Please redo a swallow study. In addition I did review the signs/ symptoms of stroke including BE FAST (B) balance issues, (E) acute eye/ vision changes, (F) facial droop, (A) Arm/ leg weakness, (S) speech disturbance and (T) time to call 911 if these symptoms occur. This note was completed using a voice single needle operator system. Every effort was made to ensure accuracy; however, inadvertent computerized single needle operator errors may be present Patient seen with Dr. Trimble. MARLENE Romeo documented in this encounter [facility] 11-30-2024 Instructions MARLENE Moore - 11/30/2024 1:30 PM EST Referral to neurology for seizures and botox Needs aggressive pt/ot/st needs splint left arm. Patient able to do more than what is previously seen. Improved exam from previous. Stroke service no further visits needed. No ac due to spontaneosu bleeding documented in this encounter [facility] 09-21-2024 Miscellaneous Notes Follow up after event monitor completed. In approx 1 -[address] Trimble. Our office will call to schedule him. Patient wearing MCOT untl 10/15/24. Please schedule follow up with Dr. Trimble. Resides at facility. See if spouse can make it as well. Spoke with spouse and scheduled a video appt and she stated she would bring in her lap top Called facility and made MACARIO Barker aware of appt as well documented in this encounter [facility] 09-21-2024 Telephone encounter Note Follow up after event monitor completed. In approx 1 -[address] Trimble. Our office will call to schedule him. Patient wearing MCOT untl 10/15/24. Please schedule follow up with Dr. Trimble. Resides at facility. See if spouse can make it as well. [facility] 09-21-2024 Telephone encounter Note Spoke with spouse and scheduled a video appt and she stated she would bring in her lap top Called facility and made MACARIO Barker aware of appt as well [place] 09-20-2024 Telephone encounter Note Requested Prescriptions Signed Prescriptions Disp Refills oxyCODONE-acetaminophen (Percocet) 5-325 MG tablet 120 tablet 0 Sig: Take 1 tablet by mouth every 6 (six) hours Authorizing Provider: KENY ZHENG [facility] patient [facility] 09-20-2024 Miscellaneous Notes Requested Prescriptions Signed Prescriptions Disp Refills oxyCODONE-acetaminophen (Percocet) 5-325 MG tablet 120 tablet 0 Sig: Take 1 tablet by mouth every 6 (six) hours Authorizing Provider: KENY ZHENG [facility] patient documented in this encounter [facility] 09-09-2024 Miscellaneous Notes Patient's spouse called in asking to speak with clinical staff, she did not want to discuss concerns with scientific technical writer. Best contact [phone] Patient spouse Rhonda requesting a call back. Rhonda stated she just wanted to a little report on last office visit because she could not make it and patient AIDE went with patient. Rhonda requesting a call back [phone] I can call with the recs but I ended up not seeing patient in clinic. I spoke with spouse on phone. Gave her updates, event monitor negative for afib and will f/u with Dr. Trimble in nov 30. She did take him to the bandoleer straightener stamper and he did have basal cell carcinoma on his nare. documented in this encounter [place] 09-09-2024 Telephone encounter Note Patient's spouse called in asking to speak with clinical staff, she did not want to discuss concerns with scientific technical writer. Best contact [phone] [place] 09-09-2024 Telephone encounter Note Patient spouse Rhonda requesting a call back. Rhonda stated she just wanted to a little report on last office visit because she could not make it and patient AIDE went with patient. Rhonda requesting a call back [phone] [facility] 09-09-2024 Telephone encounter Note I can call with the recs but I ended up not seeing patient in clinic. [facility] Work Phone: 09-09-2024 Telephone encounter Note I spoke with spouse on phone. Gave her updates, event monitor negative for afib and will f/u with Dr. Trimble in nov 30. She did take him to the bandoleer straightener stamper and he did have basal cell carcinoma on his nare. [facility] 09-07-2024 History of Presen t illness Narrative Images from the original note were not included. [facility] [address] [facility] [address] Patient: Ranjeet Mcneli Date of : 1955 Encounter Date: 09/07/2024 No care team lead to display Reason for visit: Hospital follow up History of Present Illness: Subjective: Ranjeet Mcneil is a right handed 69 y.o. male with past medical history significant for T2Dm, CAD, Hx of DE, Hx of prior ischemic CVA x 2 being evaluated in clinic today for hospital follow up for right EMILIA ischemic stroke 2/2 to right A2 occlusion with partial thrombus in proximal A2. His hospitalization was complicated by aspiration pneumonia, dysphagia requiring PEG tube placement, extensive b/l DVT. He was placed on anticoagulation for his DVT and unfortunately suffered a hemorrhagic bleed in the right parietal lobe. Ford subsequently had IVC filter placed. Patient is currently following with vascular surgery and will follow up in 6 months. Patient was recommended to get an event monitor at discharge which has not yet been completed. Also there was a request for dermatology due to lesion on the right nare. Per staff aide, patient is not able to complete his iadls by himself. He is mostly wheelchair and bedbound. LEAD APPLICATIONS DEVELOPER note per facility notes some progress with saying some words here and there. Patient in office was able to write the word yes and did also try to write some words. Ranjeet Mcneil is accompanied in the office by his facility patient aide. Past Medical, Family, Surgical, and Social History Update: The following portions of the patient's history were reviewed and updated as appropriate: allergies, current medications, past family history, past medical history, past social history, past surgical history and problem list. Review of Systems Review of Systems Unable to perform ROS: Other Severe aphasia Past Medical History: Diagnosis Date Coronary artery disease Diabetes mellitus type 2, controlled ([facility]) Hypertension Myocardial infarction ([facility]) Stroke (cerebrum) ([facility]) 06/06/2024 History reviewed. No pertinent family history. Past Surgical History: Procedure Laterality Date CORONARY STENT PLACEMENT X 5 ESOPHAGOGASTRODUODENOSCOPY INSERTION PEG TUBE N/A 06/15/2024 Performed by Ron Burks MD at [facility] Insert inferior vena cava filter, all-inclusive N/A 06/24/2024 Performed by Madeline Velasquez MD at [facility] Neuro Invasive N/A 06/06/2024 Performed by Janell Trimble MD at [facility] Stroke Thrombectomy N/A 06/06/2024 Performed by Janell Trimble MD at [facility] Vascular Invasive N/A 06/24/2024 Performed by Madeline Velasquze MD at [facility] VASECTOMY Current Outpatient Medications Medication Sig Dispense Refill acetaminophen (TYLENOL EXTRA STRENGTH) 500 mg tablet Take 1 tablet (500 mg total) by mouth every 8 (eight) hours as needed for pain. amLODIPine (NORVASC) 5 mg tablet Take 1 tablet (5 mg total) by mouth in the morning. atorvastatin (LIPITOR) 40 mg tablet Administer 1 tablet (40 mg total) per tube nightly. busPIRone (BUSPAR) 5 mg tablet Take 1 tablet (5 mg total) by mouth 3 (three) times a day. cholecalciferol, vitamin D3, (VITAMIN D3) 5,000 units capsule Administer 1 capsule (5,000 Units total) per tube in the morning. famotidine (PEPCID) 20 mg tablet Administer 1 tablet (20 mg total) per tube in the morning and 1 tablet (20 mg total) before bedtime. glucagon HCL 1 mg/mL injection Inject 1 mL (1 mg total) into the appropriate muscle as needed for low blood sugar (blood glucose less than 70 mg/dL and unconscious or NPO without IV access.). insulin lispro (HumaLOG) 100 unit/mL insulin pen Inject 23 Units under the skin every 4 (four) hours. ipratropium-albuteroL (DUONEB) 0.5 mg-3 mg(2.5 mg base)/3 mL nebulizer Inhale 3 mL by nebulization every 6 (six) hours as needed for wheezing. losartan (COZAAR) 100 mg tablet Administer 1 tablet (100 mg total) per tube in the morning. melatonin (CIRCADIN) 5 mg tablet Take 1 tablet (5 mg total) by mouth nightly. metoprolol tartrate (LOPRESSOR) 25 mg tablet Administer 1 tablet (25 mg total) per tube in the morning and 1 tablet (25 mg total) before bedtime. oxyCODONE-acetaminophen (PERCOCET) 5-325 mg per tablet Take 1 tablet by mouth every 6 (six) hours. Max Daily Amount: 4 tablets PARoxetine (PAXIL) 10 mg tablet polyethylene glycol (GLYCOLAX) 17 gram packet Administer 17 g per tube in the morning. risperiDONE (RisperDAL) 1 mg tablet sennosides 8.8 mg/5 mL syrup Administer 5 mL (8.8 mg total) per tube nightly. traZODone (DESYREL) 50 mg tablet Take 1 tablet (50 mg total) by mouth nightly. valproate (DEPAKENE) 250 mg/5 mL syrup bacitracin 500 unit/gram packet Apply 1 Application topically in the morning and 1 Application before bedtime. (Patient not taking: Reported on 09/07/2024) insulin lispro (HumaLOG) 100 unit/mL insulin pen Inject 2-10 Units under the skin every 4 (four) hours. (Patient not taking: Reported on 09/07/2024) LORazepam (ATIVAN) 0.5 mg tablet Take 1 tablet (0.5 mg total) by mouth every 8 (eight) hours as needed for anxiety. (Patient not taking: Reported on 09/07/2024) QUEtiapine (SEROquel) 25 mg tablet Take 1 tablet (25 mg total) by mouth in the morning and 1 tablet (25 mg total) before bedtime. (Patient not taking: Reported on 09/07/2024) No current facility-administered medications for this visit. (All medications reviewed and updated by provider since last office visit or hospitalization) Tobacco History: Social History Tobacco Use Smoking Status Never Smokeless Tobacco Never (If patient a smoker, smoking cessation counseling offered) Social History: Social History Substance and Sexual Activity Alcohol Use Not Currently Allergies: No Known Allergies Objective: BP 130/48 (BP Site: Left Arm, BP Postition: Sitting, BP CUFF SIZE: M (9-13 inches)) Pulse 90 Last Neuro Imaging: No new cerebral imaging to review. Physical Exam: Neurology Physical Exam NIH Stroke Scale 1a Level of consciousness: 0=alert; keenly responsive 1b. LOC questions: 2=Performs neither task correctly 1c. LOC commands: 0=Performs both tasks correctly 2. Best Gaze: 0=normal 3. Visual: 0=No visual loss 4. Facial Palsy: 1=Minor paralysis (flattened nasolabial fold, asymmetric on smiling) 5a. Motor left arm: 4=No movement 5b. Motor right arm: 0=No drift, limb holds 90 (or 45) degrees for full 10 seconds 6a. motor left le=No movement 6b Motor right le=No drift, limb holds 90 (or 45) degrees for full 10 seconds 7. Limb Ataxia: 0=Absent 8. Sensory: 2=Severe to total sensory loss; patient is not aware of being touched in face, arm, leg 9. Best Language: 2=Severe aphasia; all communication is through fragmentary expression; great need for inference, questioning, and guessing by the listener 10. Dysarthria: 2=Severe; patient speech is so slurred as to be unintelligible in the absence of or our of proportion to any dysphagia, or is mute/anarthric 11. Extinction and Inattention: 0=No abnormality Total: 17 General Appearance: Alert, active, cooperative, and in no distress Head: Normocephalic, without obvious abnormality, atraumatic Eyes: conjunctivae/corneas clear. PERRL, EOM's intact. ENT: ENT exam normal Neck: supple, symmetrical, trachea midline Lungs: Non-labored Heart: regular rate and rhythm Extremities: extremities normal, atraumatic, no cyanosis or edema Skin: Skin color, texture, turgor normal. No rashes or lesions Neurologic: Left hemiplegia, aphasia. [id number] MRS: 5 PHQ9: Depression Screening Total Score: 6 Risk Factor Management: Hypertension target range 130-140/70-80 Lipid range - LDL < 70 and checked every 6 months, fasting Diabetes - HgB A1C <7 DVT s/p IVC filter Hx of IPH on anticoagulation Hx of prior CVA Assessment/Plan: Right EMILIA ischemic stroke 2/2 to A2 occlusion s/p MT and partial thrombus in proximal A2, right parietal IPH 2/2 to anticoagulation use - Etiology of patients stroke is ESUS, possible ICAD, vs cardioembolic versus hypercoaguable - will start patient on 81 mg aspirin - as previously recommended patient will need event monitor, this will be arranged by our office. - Continue PT/OT/LEAD APPLICATIONS DEVELOPER - We will have patient come back in approx one month once event monitor has been completed 2. Right nare lesion - previous recommendation for patient to follow up with dermatology, may need biopsy 3. Hx of extensive BLE DVTs s/p IVC filter - f/u with vascular surgery as scheduled 4. Hypertension- Advise continuing to monitor for target SBP <130 -Continue antihypertensive regimen 5. Hyperlipidemia- low fat/low cholesterol diet -Continue statin therapy -Recommend diet and exercise -Follow up with PCP for lipid management 6. Diabetes- Recommend strict glycemic control -Continue to monitor In addition I did review the signs/ symptoms of stroke including BE FAST (B) balance issues, (E) acute eye/ vision changes, (F) facial droop, (A) Arm/ leg weakness, (S) speech disturbance and (T) time to call 911 if these symptoms occur. This note was completed using a voice single needle operator system. Every effort was made to ensure accuracy; however, inadvertent computerized single needle operator errors may be present Addendum: to complete note assessment/plan and document iadls. Patient seen by Dr. Trimble in clinic and provided MDM. Jeannette Chun PA-C assisted with documentation of this note. Jeannette Chun PA-C 09/07/24 1724 documented in this encounter [place] 09-07-2024 History of Presen t illness Narrative Met with pt for the 90 day follow up for the [employer] study. Pt still living in facility. Facility notes state he is doing a little better. See JEAN note for further information. This is the final study visit. Thanked pt for his participation. documented in this encounter [place] 09-07-2024 Instructions Jeannette Chun PA-C - 09/07/2024 2:00 PM EST Follow up after event monitor completed. In approx 1 -[address] Trimble. Our office will call to schedule him. Please have someone schedule him for a dermatology visit for the lesion below his right nare Continue PT and OT, LEAD APPLICATIONS DEVELOPER He can start on 81 mg aspirin daily for secondary stroke prevention documented in this encounter [place] 08-14-2024 Telephone encounter Note Rx for percocet is sent for this [facility] patient. [facility] 08-14-2024 Miscellaneous Notes Rx for percocet is sent for this [facility] patient. documented in this encounter [facility] 08-11-2024 Telephone encounter Note Rx for handicap placard is given to the patient's today. He is a Pt at [facility]. [facility] 08-11-2024 Miscellaneous Notes Rx for handicap tavaresard is given to the patient's today. He is a Pt at [facility]. documented in this encounter [facility] 07-14-2024 Evaluation + Plan note Associated Problem(s): Stroke (cerebrum) ([facility]) No evidence of carotid stenosis. This seems to be cardioembolic and hemorrhagic. Continue follow-up with neurology cardiology and continue rehab [place] 07-14-2024 Evaluation + Plan note Associated Problem(s): Acute deep vein thrombosis (DVT) of distal vein of both lower extremities ([facility]) Compression stockings leg elevation follow-up in 6 months to evaluate for IVC filter retrieval. Currently he can be on blood thinners and he has acute DVT and he has an IVC filter. [place] 07-14-2024 Miscellaneous Notes Associated Problem(s): Stroke (cerebrum) ([facility]) No evidence of carotid stenosis. This seems to be cardioembolic and hemorrhagic. Continue follow-up with neurology cardiology and continue rehab Associated Problem(s): Acute deep vein thrombosis (DVT) of distal vein of both lower extremities ([facility]) Compression stockings leg elevation follow-up in 6 months to evaluate for IVC filter retrieval. Currently he can be on blood thinners and he has acute DVT and he has an IVC filter. documented in this encounter [place] 07-14-2024 History of Presen t illness Narrative Images from the original note were not included. To: Raina Garcia, [employer] LEADER HPI: Ranjeet Mcneil is a 68 y.o. male with With a stroke cardioembolic and hemorrhagic conversion had a DVT and IVC filter placement in the hospital. He is here for follow-up. There is no significant neurologic recovery. He does not have significant swelling in his lower extremities.. Review of Systems: Review of Systems Constitutional: Negative. HENT: Negative. Respiratory: Negative. Cardiovascular: Negative. Gastrointestinal: Negative. Endocrine: Negative. Genitourinary: Negative. Musculoskeletal: Negative. Skin: Negative. Neurological: Negative. Hematological: Negative. Medications: Current Outpatient Medications on File Prior to Visit Medication Sig Dispense Refill amLODIPine (NORVASC) 5 mg tablet Take 1 tablet (5 mg total) by mouth in the morning. atorvastatin (LIPITOR) 40 mg tablet Administer 1 tablet (40 mg total) per tube nightly. cholecalciferol, vitamin D3, (VITAMIN D3) 5,000 units capsule Administer 1 capsule (5,000 Units total) per tube in the morning. famotidine (PEPCID) 20 mg tablet Administer 1 tablet (20 mg total) per tube in the morning and 1 tablet (20 mg total) before bedtime. glucagon HCL 1 mg/mL injection Inject 1 mL (1 mg total) into the appropriate muscle as needed for low blood sugar (blood glucose less than 70 mg/dL and unconscious or NPO without IV access.). insulin lispro (HumaLOG) 100 unit/mL insulin pen Inject 23 Units under the skin every 4 (four) hours. insulin lispro (HumaLOG) 100 unit/mL insulin pen Inject 2-10 Units under the skin every 4 (four) hours. ipratropium-albuteroL (DUONEB) 0.5 mg-3 mg(2.5 mg base)/3 mL nebulizer Inhale 3 mL by nebulization every 6 (six) hours as needed for wheezing. losartan (COZAAR) 100 mg tablet Administer 1 tablet (100 mg total) per tube in the morning. melatonin (CIRCADIN) 5 mg tablet Take 1 tablet (5 mg total) by mouth nightly. metoprolol tartrate (LOPRESSOR) 25 mg tablet Administer 1 tablet (25 mg total) per tube in the morning and 1 tablet (25 mg total) before bedtime. polyethylene glycol (GLYCOLAX) 17 gram packet Administer 17 g per tube in the morning. sennosides 8.8 mg/5 mL syrup Administer 5 mL (8.8 mg total) per tube nightly. acetaminophen (TYLENOL EXTRA STRENGTH) 500 mg tablet Take 1 tablet (500 mg total) by mouth every 8 (eight) hours as needed for pain. bacitracin 500 unit/gram packet Apply 1 Application topically in the morning and 1 Application before bedtime. (Patient not taking: Reported on 07/14/2024) busPIRone (BUSPAR) 5 mg tablet Take 1 tablet (5 mg total) by mouth 3 (three) times a day. LORazepam (ATIVAN) 0.5 mg tablet Take 1 tablet (0.5 mg total) by mouth every 8 (eight) hours as needed for anxiety. QUEtiapine (SEROquel) 25 mg tablet Take 1 tablet (25 mg total) by mouth in the morning and 1 tablet (25 mg total) before bedtime. traZODone (DESYREL) 50 mg tablet Take 1 tablet (50 mg total) by mouth nightly. No current facility-administered medications on file prior to visit. Past Medical History: Past Medical History: Diagnosis Date Coronary artery disease Diabetes mellitus type 2, controlled ([facility]) Hypertension Myocardial infarction ([facility]) Stroke (cerebrum) ([facility]) 06/06/2024 Past Surgical History: Past Surgical History: Procedure Laterality Date CORONARY STENT PLACEMENT X 5 ESOPHAGOGASTRODUODENOSCOPY INSERTION PEG TUBE N/A 06/15/2024 Performed by Ron Burks MD at [facility] Insert inferior vena cava filter, all-inclusive N/A 06/24/2024 Performed by Madeline Velasquez MD at [facility] Neuro Invasive N/A 06/06/2024 Performed by Janell Trimble MD at [facility] Stroke Thrombectomy N/A 06/06/2024 Performed by Janell Trimble MD at [facility] Vascular Invasive N/A 06/24/2024 Performed by Madeline Velasquez MD at [facility] VASECTOMY Social and Family History: Social History Socioeconomic History Marital status: Spouse name: Not on file Number of children: Not on file Years of education: Not on file Highest education level: Not on file Occupational History Not on file Tobacco Use Smoking status: Never Smokeless tobacco: Never Vaping Use Vaping status: Every Day Substance and Sexual Activity Alcohol use: Not Currently Drug use: Not on file Comment: unknown Sexual activity: Defer Other Topics Concern Not on file Social History Narrative Not on file Social Determinants of Health Financial Resource Strain: Not on file Food Insecurity: No Food Insecurity (07/14/2024) Hunger Screening Food Insecurity - Worry: Never True Food Insecurity - Inability: Never True Transportation Needs: Patient Unable To Answer (06/06/2024) PRAPARE - Transportation Lack of Transportation (Medical): Patient unable to answer Lack of Transportation (Non-Medical): Patient unable to answer Physical Activity: Not on file Stress: Not on file Social Connections: Not on file Interpersonal Safety: Patient Unable To Answer (06/06/2024) Humiliation, Afraid, Rape, and Kick questionnaire Fear of Current or Ex-Partner: Patient unable to answer Emotionally Abused: Patient unable to answer Physically Abused: Patient unable to answer Sexually Abused: Patient unable to answer Housing Instability: Patient Unable To Answer (06/06/2024) Housing Instability Housing Instability: Patient unable to answer No family history on file. Recent Labs: Recent and relative labs were reviewed and interpreted and contributed to the assessment and plan below. Vitals: BP 138/72 (BP Site: Right Arm, BP Postition: Lying, BP CUFF SIZE: M (9-13 inches)) Pulse 104 Temp 37.2 C (99 F) (Tympanic) Ht 170.2 cm (5' 7 ) Wt 90.3 kg (199 lb) SpO2 94% BMI 31.17 kg/m Body mass index is 31.17 kg/m . Physical Exam: Physical Exam Constitutional: Appearance: Normal appearance. HENT: Head: Normocephalic and atraumatic. Mouth/Throat: Mouth: Mucous membranes are moist. Eyes: Extraocular Movements: Extraocular movements intact. Pupils: Pupils are equal, round, and reactive to light. Cardiovascular: Rate and Rhythm: Normal rate and regular rhythm. Pulmonary: Effort: Pulmonary effort is normal. Breath sounds: Normal breath sounds. Abdominal: General: Abdomen is flat. Bowel sounds are normal. Palpations: Abdomen is soft. Musculoskeletal: General: Normal range of motion. Cervical back: Normal range of motion. Skin: General: Skin is warm and dry. Neurological: General: No focal deficit present. Mental Status: He is alert and oriented to person, place, and time. Mental status is at baseline. Psychiatric: Mood and Affect: Mood normal. Behavior: Behavior normal. Thought Content: Thought content normal. Judgment: Judgment normal. Recent testing: Duplex ultrasound CTA of the head and neck Assessment and Plan: Problem List Stroke (cerebrum) ([facility]) Current Assessment & Plan No evidence of carotid stenosis. This seems to be cardioembolic and hemorrhagic. Continue follow-up with neurology cardiology and continue rehab Acute deep vein thrombosis (DVT) of distal vein of both lower extremities ([facility]) - Primary Current Assessment & Plan Compression stockings leg elevation follow-up in 6 months to evaluate for IVC filter retrieval. Currently he can be on blood thinners and he has acute DVT and he has an IVC filter. Ford was seen today for ble dvt in the setting of stroke with mechanical thrombecto. Diagnoses and all orders for this visit: Acute deep vein thrombosis (DVT) of distal vein of both lower extremities ([facility]) 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 ([facility]) Nisa Sabillon MD, AYUSH, RPVI, FSVS, FACS [facility] This note was created with the assistance of a speech recognition program. While intending to generate a timely document that accurately reflects the content of the visit, no guarantee can be provided that every grammatical or spelling mistake has been or will be identified or corrected. Thank you for your understanding. documented in this encounter [place] 07-04-2024 Miscellaneous Notes ----- Message from CYNDY Chun PA-C sent at 07/01/2024 3:37 PM EDT ----- Regarding: TTH f/u EMILIA occlusion s/p MT, can not rule out cardiac origin, needs 30 day event monitor. F/u Nai 4-6 weeks. Patient mute and going to SNF, may need to arrange with family/facility. Spoke with spouse who stated patient is currently at [facility] Called facility and was transferred to the nursing scheduler kaleb and rescheduled appt documented in this encounter [place] 07-04-2024 Telephone encounter Note ----- Message from CYNDY Chun PA-C sent at 07/01/2024 3:37 PM EDT ----- Regarding: TTH f/u EMILIA occlusion s/p MT, can not rule out cardiac origin, needs 30 day event monitor. F/u Nai 4-6 weeks. Patient mute and going to SNF, may need to arrange with family/facility. [place] 07-04-2024 Telephone encounter Note Spoke with spouse who stated patient is currently at [facility] Called facility and was transferred to the nursing scheduler and rescheduled appt [place] 07-03-2024 History of Presen t illness Narrative Skin lesion of the nose concerning for possible cancer. Dr. Ross requested Dermatology referral. Will send and discuss with patient spouse. Jeannette Chun PA-C 07/03/24 1719 documented in this encounter [place] 06-30-2024 Miscellaneous Notes Contract: [id number] Gem [facility] called regarding previous peg placement [id number] I numerically paged General Surgery to Gem @[facility] documented in this encounter [place] 06-30-2024 Telephone encounter Note Contract: [id number] Gem @[facility] called regarding previous peg placement [place] 06-30-2024 Telephone encounter Note [id number] I numerically paged General Surgery to Gem @[facility] [place] 06-28-2024 Miscellaneous Notes Contract: OCTerence Hollins at [facility] [phone] New Consult Rm [id number] Blood Sugar 88 Scheduled 28 Units of Humalog Contract: OCTerence Hollins at [facility] [phone] New Consult Rm [id number] Blood Sugar 88 Scheduled 28 Units of Humalog L. MD Lay [phone] paged to [facility] documented in this encounter [place] 06-28-2024 Telephone encounter Note Contract: OCTerence Hollins at [facility] [phone] New Consult Rm [id number] Blood Sugar 88 Scheduled 28 Units of Humalog [place] 06-28-2024 Telephone encounter Note Contract: [id number] Gunjan at [facility] [phone] New Consult Rm [id number] Blood Sugar 88 Scheduled 28 Units of Humalog L. MD Lay [phone] paged to [facility] [place] 06-23-2024 History of Presen t illness Narrative [facility] Management received a new referral from Dr. Viveros on 06/23/2024 The information below is outlined from the referral: Demographics Ranjeet Mcneil 1955 male [facility] clinic location / home health agency: [facility] Anticoagulation Details Indication: DVT, CVA Severe thrombophilia: No Active cancer: No INR Target Range: 2.0 - 3.0 Bridging Preference for procedure/surgery: Bridge for therapeutic anticoagulation Date warfarin started: Not started yet Date of next INR required: TBD Anticipated duration of therapy: Indefinite Warfarin tablet strength prescribed: TBD Current dosing instructions: TBD The dosing calendar is up-to-date to reflect warfarin tablet strength prescribed and current dosing instructions. The patient education checklist will be discussed in depth during the initial [id number] visit with a [facility] clinical pharmacist and/or during the initial phone call during home health. Pertinent information: New referral from [facility]. Patient currently admitted. Patient admitted on 06/06/24 for stroke alert. Patient has prior history of CVAx2.Imaging showed right EMILIA territory ischemic stroke secondary to right EMILIA occlusion. Underwent mechanical thrombectomy. Also during hospital stay patient started to experience lower extremity swelling. Venous duplex completed and revealed right deep tibioperoneal vein thromobisis and left acute femoropopliteal and tibioperoneal vein thrombosis. Heparin drip started. PEG tube being placed so patient is being started on warfarin instead of Eliquis. Will continue to monitor admission and contact once discharged. It appears patient will be going to SNF at discharge. Osmar Mayer RPH 06/23/24 0939 documented in this encounter [place] 06-11-2024 Miscellaneous Notes Contract: [id number] . [phone] [facility] called with a new consult for peg tube placement. thanks francisco Resendiz documented in this encounter [place] 06-11-2024 Telephone encounter Note Contract: [id number] . [phone] [facility] Nanette called with a new consult for peg tube placement. thanks francisco Resendiz [place] 06-06-2024 History of Presen t illness Narrative Reviewed chart for possible inclusion into the [employer] study. Dr. Kessler speaks briefly with about study. Called to discuss purpose, risks/benefits of study. Informed consent form faxed to [facility]. reviews form with time study technician. All questions answered. agreeable to enroll pt into study. Informed consent form signed/dated/timed by and witnessed by hospital personnel. Consent pages faxed back to time study technician who also signed/dated/timed consent form. No study procedures done prior to consent being signed. Pt fits inclusion/exclusion criteria after arrival to [facility]. Study drug given per protocol The RAISE study examines the safety and efficacy of BB-031 ( inhibits von Willebrand Factor ). Election Supervisor - Dr. Trimble Study Coordinators : Nancy Quinn RN and Otf Wood RN [phone] documented in this encounter [place] 06-02-2024 Miscellaneous Notes Patients called inquiring about your accepting him as a patient. New patients are opened back up for July. His is a current patient of yours. We dont have much history in his chart. It sounds like he will need to see you for DM care and help getting set with a tattoo and body artist. Let us know if you will take him and we can get him booked in July. That is fine. When we are accepting again, put him on the schedule Patient notified and scheduled 08/01/24 documented in this encounter [place] 06-02-2024 Telephone encounter Note Patients called inquiring about your accepting him as a patient. New patients are opened back up for July. His is a current patient of yours. We dont have much history in his chart. It sounds like he will need to see you for DM care and help getting set with a tattoo and body artist. Let us know if you will take him and we can get him booked in July. [place] 06-02-2024 Telephone encounter Note That is fine. When we are accepting again, put him on the schedule [place] Work Phone: 06-02-2024 Telephone encounter Note Patient notified and scheduled 08/01/24 [place] Evaluation note Diagnosis Cerebrovascular accident (CVA), unspecified mechanism (CMS/HCC)- Primary documented in this encounter [facility]* Diagnosis Pain- Primary Generalized pain documented in this encounter [facility]* Diagnosis Acute deep vein thrombosis (DVT) of distal vein of both lower extremities (CMS-HCC)- Primary 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 ([facility]) [facility] Acute deep vein thrombosis (DVT) of distal vein of both lower extremities (CMS-HCC)- Primary [place] in [place] [facility]* Diagnosis Lesion of skin of nose- Primary [facility] in this [facility]* Diagnosis Acute deep vein thrombosis (DVT) of distal vein of both lower extremities (CMS-HCC)- Primary 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 (CMS-HCC) Hx of ischemic right EMILIA stroke- Primary [facility] Diagnosis Acute deep vein thrombosis (DVT) of distal vein of both lower extremities ([facility]-H[facility])- Primary 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 ([facility]) 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 ([facility]-H[facility])- Primary Other cerebrovascular vasospasm and vasoconstriction [facility] Diagnosis Acute deep vein thrombosis (DVT) of distal vein of both lower extremities ([facility]-H[facility])- Primary 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 ([facility]) 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)- Primary Weakness as late effect of cerebrovascular accident (CVA) Seizure-like activity ([facility]) [facility] filed[facility]ed in this [facility] filedocumented in this [facility]ocumented in this [facility] filedocumented in this encounter [facility] filedocumented in this encounter [facility] filedocumented in this encounter [facility] filedocumented in this encounter [facility] filedocumented in this encounter [facility] filedocumented in [facility] filedocumented in this encounter [facility] filedocumented in this encounter [facility] filedocumented in this encounter [facility] (narrative)* Consultation (Routine) - Pending Review Specialty Diagnoses / Procedures Referred By Mey avila Referred To Contact Dermatology Diagnoses Lesion of skin of nose Jeannette Chun PA-C [address] [place] [address] Sacha Henao, DO [address] [place] [address] Referral ID Status Reason Start Date Expiration Date Visits Requested Visits Authorized [id number] Pending Review Specialty Services Required 07/03/2024 07/03/2025 1 1 [facility] Summary Purpose Family History No Family History Records FoundNo Family History Records FoundNo Family History Records FoundNo Family History Records FoundNo Family History Records FoundNo Family History Records Found Advance Directives Date Activated Date Inactivated Comments 06/07/2024 8:12 AM 07/01/2024 6:54 PM Date Activated Date Inactivated Comments 06/07/2024 8:12 AM Date Activated Date Inactivated Comments 06/07/2024 8:12 AM 07/01/2024 6:54 PM Additional Source Comments (unrecognized sect ion and content) No Status Records FoundNo Status Records FoundNo Status Records FoundNo Status Records FoundNo Status Records FoundNo Status Records Found INFORMATION SOURCE (unrecogn ized section and content) DATE CREATED AUTHOR 06/08/2024 [facility] DATE CREATED AUTHOR AUTHOR'S ORGANIZ ATION 06/12/2024 [facility] DATE CREATED AUTHOR AUTHOR'S ORGANIZ ATION 07/22/2024 [facility] DATE CREATED AUTHOR AUTHOR'S ORGANIZ ATION 10/07/2024 [facility] DATE CREATED AUTHOR AUTHOR'S ORGANIZ ATION 10/24/2024 [facility] DATE CREATED AUTHOR AUTHOR'S ORGANIZ ATION 12/02/2024 [facility] Reason for Visit (unrecogniz ed section and content) Reason Onset Date Comments concerns 09/09/2024 Reason Onset Date Comments Consult 06/11/2024 PEG tube placement 06/11/2024 Reason Comments BLE DVT in the setting of stroke with me chanical thrombecto Reason Onset Date Comments Blood Sugar 88 Scheduled 28 Units of Humalog Reason Onset Date Comments previous peg placement 06/30/2024 Care Teams (unrecognized sec tion and content) [employer] Installer Relationship Specialty Start Date End Date Sayra Bermudez [facility] [address] [place] [address] PCP - General Family Medicine 06/09/22 [employer] Relationship Specialty Start Date End Date Raina Garcia [facility] [address] [place] [address] PCP - General Family Medicine 06/06/24 [employer] Installer Relationship Specialty Start Date End Date Raina Garcia [facility] [address] [place] [address] PCP - General Family Medicine 06/06/24 [employer] Installer Relationship Specialty Start Date End Date Raina Garcia [facility] [address] [place] [address] PCP - General Family Medicine 06/06/24 [employer] Installer Relationship Specialty Start Date End Date Raina Garcia [facility] [address] [place] [address] PCP - General Family Medicine 06/06/24 [employer] Installer Relationship Specialty Start Date End Date Raina Garcia [facility] [address] [place] [address] PCP - General Family Medicine 06/06/24 [employer] Installer Relationship Specialty Start Date End Date Raina Garcia [facility] [address] [place] [address] PCP - General Family Medicine 06/06/24 [employer] Installer Relationship Specialty Start Date End Date Raina Garcia APRN-JU [address] [place] [address] PCP - General Family Medicine 06/06/24 [employer] Installer Relationship Specialty Start Date End Date Jose Raina AlbaMARLENE [address] [place] [address] PCP - General Family Medicine 06/06/24 FOR RECORDS PERTAINING TO PATIENTS WHO ARE OR HAVE BEEN ENROLLED IN A CHEMICAL DEPENDENCY/SUBSTANCEABUSE PROGRAM, SOME INFORMATION MAY BE OMITTED. This clinical summary was aggregated from multiple sources. Caution should be exercised in using it in the provision of clinical care. This summary normalizes information from multiple sources, and as a consequence, information in this document may materially change the coding, format and clinical context of patient data. In addition, data may be omitted in some cases. CLINICAL DECISIONS SHOULD BE BASED ON THE PRIMARY CLINICAL RECORDS. [facility] [employer] [facility]. provides no warranty or guarantee of the accuracy or completeness of information in this document.
== END 2024-12-19 10:15 | disposition home or self-care (01) ==
LOC: EC 10:16
PROVIDERS: PCP Family Medicine; Visit Provider Orthopaedic Surgery
DX: M79.602 Pain in left arm (principal)
CPT/HCPCS: 73060

== ENCOUNTER 2025-01-02 14:09 | Outpatient (OUT) | payer MEDICARE, MEDICAID, SELFPAY ==
--- NOTE | 2025-01-02 15:41 | P.CN_ITS ---
Consult Note: HPI Data of Consult Patient: new to practice Consult date: 01/02/25 Requesting Physician: Salma Garcia MD Primary Care Provider: ZA ALCALA Consult Narrative Reason for consult: left arm pain Narrative: 69yom who presents for evaluation. notes pain in left arm likely due to contracture. patient has had several strokes and is now nonverbal. saw ortho, who did not think shoulder was culprit. uses pain medicine as needed. cc:: CC: Salma Garcia MD Review of Systems ROS Status of ROS 10 or more systems reviewed and unremark able except as noted in history and below Exam Narrative Exam Narrative: Psych-alert and oriented x 3.? Attentive and appropriate, constitutionally normal, displays normal mood and affect per situation.? There are no obvious deficits in memory, reasoning, or intellect.? Skin-no obvious rashes, bruising, or erythema noted to the patient's area of pain. Extremities-upper extremities are warm with minimal edema and palpable pulses. Cervical- tenderness to palpation noted in the cervical spine and paraspinal musculature.? Pain is elicited with extension, and lateral rotation of the cervical spine.? Range of motion is slightly diminished due to pain. Coordination remains intact.? Gait remains non-antalgic. Assessment and Plan Assessment and Plan (1) Contracture of muscle, left upper arm: Plan 69yom who presents for evaluation. failed conservative measures, as noted. discussed that we could try baclofen 10mg tid prn to see if this helps. his is in agreement. follow up in 3 months.
== END 2025-01-02 14:10 | disposition home or self-care (01) ==
LOC: PM 14:10
PROVIDERS: PCP Family Medicine; Visit Provider Anesthesiology
DX: M62.422 Contracture of muscle, left upper arm (principal)
CPT/HCPCS: G0463

== ENCOUNTER 2025-04-05 12:50 | Outpatient (OUT) | payer MEDICARE, MEDICAID, SELFPAY ==
--- OUTSIDE RECORDS SUMMARY | 2024-01-13 09:30 | XMS_ITS ---
Author Organization [facility] vices Address [address] [place] [id number] Care Team Providers Care Report Checker Name Role Phone Eugenie Farrell Primary Care Provider Sayra Bermudez [phone] REASON FOR VISIT DM/Anxiety Social History Sex Assigned At : Social History Observation Description Sex Assigned At Male Encounters Encounter Location Date Provider Diagnosis Main [address] [place] [id number] 01/13/2024 Sayra Bermudez Plan Of Treatment No Information Progress Notes * Wendy MEDELLINOB:[birth year] (69 yo M)Acc No.[id number]:01/13/2024 Medical Note Patient: Ranjeet BEAUCHAMP Provider: Abdulaziz Bermudez NP :1955 A ge:68 Y S ex:Male Date:01/13/2024 Address:[address] [place] [address], [address], [place], [id number] Pcp:Eugenie Farrell Subjective: * Chief Complaints: * 1 . DM/Anxiety. * Medical History: Objective: * Vitals: Assessment: Plan: * Treatment: * Billing Information: * Visit Code: * Procedure Codes: * Electronic signature of Timothy Bermudez NP on 04/05/2025 at 12:53 PM EDT Sign off status: Pending * Provider: Abdulaziz Bermudez NP Date: 0 01/13/2024 Generated for Cuca hernandez/Mark/Almaz on: 0 04/05/2025 12:53 PM EDT
--- OUTSIDE RECORDS SUMMARY | 2024-04-07 11:30 | XMS_ITS ---
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 Name Role Phone Eugenie Farrell Primary Care Provider Sayra Bermudez [phone] REASON FOR VISIT DM, anxiety Social History Sex Assigned At : Social History Observation Description Sex Assigned At Male Encounters Encounter Location Date Provider Diagnosis Main [address] [place] [id number] 04/07/2024 Sayra Bermudez Plan Of Treatment No Information Progress Notes * Wendy MEDELLINOB:[birth year] (69 yo M)Acc No.[id number]:04/07/2024 Medical Note Patient: Ranjeet BEAUCHAMP Provider: Adbulaziz Bermudez NP :1955 A ge:68 Y S ex:Male Date:04/07/2024 Address:[address] [place] [address], [address], [place], [id number] Pcp:Eugenie Farrell Subjective: * Chief Complaints: * 1 . DM, anxiety. * Medical History: Objective: * Vitals: Assessment: Plan: * Treatment: * Billing Information: * Visit Code: * Procedure Codes: * Electronic signature of Timothy Bermudez NP on 04/05/2025 at 12:53 PM EDT Sign off status: Pending * Provider: Abdulaziz Bermudez NP Date: 0 04/07/2024 Generated for Cuca hernandez/Mark/Almaz on: 0 04/05/2025 12:53 PM EDT
--- OUTSIDE RECORDS SUMMARY | 2025-04-05 12:53 | XMS_ITS | Clinical Summary ---
Author Organization [facility] Address [address] [place] [address] Care Team Providers Care Engineering Specialist Technician Name Role Phone Armando Vyas MD Primary Care Provider [phone] Social History Tobacco Use Types Packs/Day Years Used Date Smoking Tobacco: Never Assessed Sex and Gender Information Value Date Recorded Sex Assigned at Not on file Legal Sex Male 12:47 AM EDT Gender Identity Not on file Sexual Orientation Not on file Plan of Treatment Health Maintenance Due Date Last Done Comments DTaP/Tdap/Td vaccine (1 - Tdap) 1976 COVID-19 Vaccine (2023-2 5 season) 2024 Flu vaccine (Season Ended) 2025 Respiratory Syncytial Virus (RSV) or age 60 yrs+ (1 - 1-dose 75+ series) 2032 Polio vaccine Aged Out No longer elig ible based on patient's age to complete this topic Insurance [facility] MEDICARE MEDICAID [place] Care Teams Engineering Specialist Technician Relationship Specialty Start Date End Date Armando Vyas MD [address] [place] [id number] PCP - General Psychiatry 07/19/24
--- OUTSIDE RECORDS SUMMARY | 2025-04-05 12:53 | XMS_ITS | Patient Health Record ---
Author Organization [facility] Address [address] [place] [address] Care Team Providers Care Bread Distributor Name Role Phone Jerrod Orozco MD Primary Care Provider Unavailemmett vargas Jacob Goldstein Unavailable [phone] xxLucianaoCnradoMyrtle Unavailable [phone] Allergies No Known Allergies Results Component Value Reference Range Notes SCC- HUMERUS LEFT [id number] Reviewed date:12/22/2024 11:03:26 AM Interpretation: Performing Lab: Notes/Report: Reason For Referral Reason Please contact vee patterson to schedule with [facility], thank you. Diagnosis 1 Left arm pain (M79.6 02) Diagnosis 2 Contracture of muscl e of left upper arm (M62.422) Referral Organization [facility] Referring Provider First Name Jacob Referring Provider Last Name Angelita Referring Provider Speciality Orthopedic Surgery Referred Organization [facility] Referred Address [place], [place], General Notes Jodi Gil 2024 07:32:10 AM >faxed Referral Priority Routine Social History Tobacco Use: Social History Observation Description Date Details (start date - stop date) Never Smoker NA - NA AUDIT-C (Standard) Question Answer Notes Did you have a drink containing alcohol in the p ast year? 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) Active confirmed Vital Signs Height 70 in 12/19/2024 Weight 183 lbs 12/19/2024 BMI 26.25 12/19/2024 Encounters Encounter Location Date [facility] [address] [place] [address] [place] [address] [facility] pain M79.602 and Contracture of muscle of left upper arm M62.422 Assessments Encounter Date Diagnosis (ICD Code) Assessment Notes Treatment Notes Treatment Clinical Notes Section Notes 12/19/2024 Left arm pain (ICD-10 - M79.602) Left biceps contracture 12/19/2024 Contracture of muscle of left upper arm (ICD-10 - M62.422) Left biceps contracture 12/19/2024 Other Patient's pain and discomfort seems to be stemming from his left biceps contracture. Placed a referral to [facility] to evaluate and treat. I discussed this with patient's . We can see him back on as an as-needed basis. Left biceps contracture Plan Of Treatment No Information Insurance Providers Payer Name Payer Address Payer Phone Subscriber Number Group Number Insured Name Patient Relationship to Insured Coverage Start Date Coverage End Date MEDICARE [employer] [address] [address] [place] [address] [id number] NAPOLEON MEDELLIN Self - patient is the insured [facility] [address] [place] [address] [id number] NAPOLEON MEDELLIN Self - patient is the insured Medical (General) History Medical History History ICD Code Cancer Heart Attack Heart problems: Type II diabetes Stroke Blood Clots: High Blood Pressure Surgical History Surgery Date(Month/Year) mesh in leg 05/2024 stents 05/2022
--- OUTSIDE RECORDS SUMMARY | 2025-04-05 12:54 | XMS_ITS | Patient Health Record ---
Author Organization [employer] [facility] es Address [address] [place] [id number] Care Team Providers Care Financial Compliance Officer Name Role Phone Megan Cabrera Ryan Primary Care Provider [phone] Nguyen [phone] Reason For Referral No Information Medications Medication SIG (Take, Route, Frequency, Duration) Notes Start Date End Date Status Metoprolol Tartrate 50 mg 1 tablet Orall y Twice a day for 11/25/2010 Active Lisinopril 30 mg 1 tablet Orally twic e a day for 90 Active metFORMIN HCl 500 mg 1 tablet Orally twi ce a day for 90 days Active Aspir-Low 325 mg 1 tablet Orally Once a day for 30 day(s) Active Metoprolol Tartrate 25 MG 1 tablet Orall y Twice a day for 30 day(s) Active Krill Oil 1000 MG as directed Orally Active Problems Problem Type SNOMED Code ICD Code Onset Dates Problem Status W/U Status Risk Notes Problem Type II diabetes mellitus without complication (980938710) Diabetes mellitus without mention of complication, type II or unspecified type, not stated as uncontrolled (250.00) Active confirmed Problem Hyperlipidemia (34579142) Hyperlipidemia,U nspecified (272.4) Active confirmed Problem Benign essential hypertension (5749537) Essential hypertension, benign (401.1) Active confirmed Problem Hypertension (23024804) Hypertension (997.91) Active confirmed Plan Of Treatment No Information Insurance Providers Payer Name Payer Address Payer Phone Subscriber Number Group Number Insured Name Patient Relationship to Insured Coverage Start Date Coverage End Date [employer] Primary [address] [place] [address] [phone] [id number] Ranjeet Mcneil Self - patient is the insured Medical (General) History Medical History History ICD Code type II diabetes urolithiasis hypertension diabetic neuropathy stroke 02/14 CVA x 2 left subcotical lacunar infarct 01/15 Surgical History Surgery Date(Month/Year) vasectomy
--- OUTSIDE RECORDS SUMMARY | 2025-04-05 12:54 | XMS_ITS | Continuity of Care Document ---
Author Organization [facility] up Address [address] [place] [address] Insurance Providers Payer Plan Claims Address Claims Phone Policy Number Group Number Relation Employer Guarantor Name Guarantor Guarantor Address Guarantor Phone [employer] [address] [address], [place] [address] tel:[phone] Self Ranjeet Mahan Ewa 1955 [id number] [facility] [address], [place] [address] [place] [address], [place] [address] tel:[phone] Self Ranjeet Mahan Ewa 1955 [address] [facility] [address], [place] [address] Medic are [facility] [address], [place] [address] tel:[phone] [id number] Self Ranjeet Purvisjenniferreinier 1955 [address] [facility] [address], [place] [address] Problems Condition ICD9 code ICD10 code SNOMED code Start Date End Date S tatus Hemiplegia and hemiparesis following cerebral infarction affecting left non-dominant side I69.354 06/29/2024 Active 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 06/29/2024 Activ e Dysphagia following cerebral infarction I69.391 06/29/2024 Activ e 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 I69.328 06/29/2024 Activ e Unspecified protein-calorie malnutrition E46 07/06/2024 Active Dysphagia following unspecified cerebrovascular disease I69.991 07/01/2024 A ctive Chronic obstructive pulmonary disease, unspecified J44.9 07/01/2024 Active Acute respiratory failure with hypoxia J96.01 06/29/2024 Active Essential (primary) hypertension I10 06/29/2024 Active Atherosclerotic heart disease of [place] coronary artery without angina pectoris I25.10 06/29/2024 Active Vitamin D deficiency, unspecified E55.9 07/01/2024 Active Encounter for attention to gastrostomy Z43.1 06/29/2024 Active Muscle weakness (generalized) M62.81 07/02/2024 Active Major depressive disorder, recurrent, 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 07/11/2024 Active Difficulty in walking, not elsewhere classified R26.2 07/02/2024 Active Anxiety disorder, unspecified F41.9 07/11/2024 Active Primary insomnia F51.01 07/01/2024 Acti ve Pure hyperglyceridemia E78.1 07/01/2024 Active Insomnia, unspecified G47.00 08/29/2024 Active Unspecified acute conjunctivitis, bilateral H10.33 09/17/2024 Active Gastro-esophageal reflux disease without esophagitis K21.9 07/01/2024 Active Dysphagia following other cerebrovascular disease I69.891 07/12/2024 A ctive 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 I63.321 07/01/2024 Active Aphasia following unspecified cerebrovascular disease I69.920 07/12/2024 A ctive Cognitive communication deficit R41.841 07/12/2024 Active Encounter for immunization Z23 07/01/2024 Active Cerebral infarction due to unspecified occlusion or stenosis of right anterior cerebral artery I63.521 07/01/2024 Active Acute embolism and thrombosis of unspecified deep veins of distal lower extremity, bilateral I82.4Z3 07/01/2024 Active Essential (primary) hypertension I10 06/29/2024 Active Atherosclerotic heart disease of [place] coronary artery without angina pectoris I25.10 06/29/2024 Active Gastro-esophageal reflux disease without esophagitis K21.9 07/01/2024 Active Limitation of activities due to disability Z73.6 11/08/2024 Active Hematuria, unspecified R31.9 11/27/2024 Active Results Test Result Date/Time Value / Unit Interp. Refere nce Range Blood chemistry[[id number]] Glucose [Mass/volume] in Serum or Plasma [2345-7] 02/13/2025 08:32 AM 124 mg/dL N Blood chemistry[[id number]] Glucose [Mass/volume] in Serum or Plasma [2345-7] 02/13/2025 04:12 PM 124 mg/dL N Blood chemistry[[id number]] Glucose [Mass/volume] in Serum or Plasma [2345-7] 02/13/2025 09:08 AM 218 mg/dL N Blood chemistry[[id number]] Glucose [Mass/volume] in Serum or Plasma [2345-7] 02/12/2025 12:54 PM 128 mg/dL N Blood chemistry[[id number]] Glucose [Mass/volume] in Serum or Plasma [2345-7] 02/12/2025 11:38 AM 143 mg/dL N Blood chemistry[[id number]] Glucose [Mass/volume] in Serum or Plasma [2345-7] 02/12/2025 09:49 AM 115 mg/dL N Blood chemistry[[id number]] Glucose [Mass/volume] in Serum or Plasma [2345-7] 02/12/2025 03:46 PM 187 mg/dL N Blood chemistry[[id number]] Glucose [Mass/volume] in Serum or Plasma [2345-7] 02/12/2025 10:05 AM 183 mg/dL N Blood chemistry[[id number]] Glucose [Mass/volume] in Serum or Plasma [2345-7] 02/11/2025 12:49 PM 149 mg/dL N Blood chemistry[[id number]] Glucose [Mass/volume] in Serum or Plasma [2345-7] 02/11/2025 08:29 AM 120 mg/dL N Blood chemistry[[id number]] Glucose [Mass/volume] in Serum or Plasma [2345-7] 02/11/2025 03:24 PM 132 mg/dL N Blood chemistry[[id number]] Glucose [Mass/volume] in Serum or Plasma [2345-7] 02/11/2025 10:16 AM 202 mg/dL N Blood chemistry[[id number]] Glucose [Mass/volume] in Serum or Plasma [2345-7] 02/10/2025 12:07 PM 155 mg/dL N Blood chemistry[[id number]] Glucose [Mass/volume] in Serum or Plasma [2345-7] 02/10/2025 12:06 PM 155 mg/dL N Blood chemistry[[id number]] Glucose [Mass/volume] in Serum or Plasma [2345-7] 02/10/2025 09:26 AM 125 mg/dL N Blood chemistry[[id number]] Glucose [Mass/volume] in Serum or Plasma [2345-7] 02/10/2025 05:19 AM 115 mg/dL N Blood chemistry[[id number]] Glucose [Mass/volume] in Serum or Plasma [2345-7] 02/10/2025 09:37 AM 193 mg/dL N Blood chemistry[[id number]] Glucose [Mass/volume] in Serum or Plasma [2345-7] 02/09/2025 02:40 PM 201 mg/dL N Blood chemistry[[id number]] Glucose [Mass/volume] in Serum or Plasma [2345-7] 02/09/2025 03:19 PM 119 mg/dL N Blood chemistry[[id number]] Glucose [Mass/volume] in Serum or Plasma [2345-7] 02/09/2025 09:09 AM 218 mg/dL N Blood chemistry[[id number]] Glucose [Mass/volume] in Serum or Plasma [2345-7] 02/08/2025 02:08 PM 164 mg/dL N Blood chemistry[[id number]] Glucose [Mass/volume] in Serum or Plasma [2345-7] 02/08/2025 09:23 AM 117 mg/dL N Blood chemistry[[id number]] Glucose [Mass/volume] in Serum or Plasma [2345-7] 02/08/2025 03:40 PM 125 mg/dL N Blood chemistry[[id number]] Glucose [Mass/volume] in Serum or Plasma [2345-7] 02/08/2025 09:13 AM 209 mg/dL N Blood chemistry[[id number]] Glucose [Mass/volume] in Serum or Plasma [2345-7] 02/07/2025 01:25 PM 132 mg/dL N Blood chemistry[[id number]] Glucose [Mass/volume] in Serum or Plasma [2345-7] 02/07/2025 08:50 AM 110 mg/dL N Blood chemistry[[id number]] Glucose [Mass/volume] in Serum or Plasma [2345-7] 02/07/2025 03:34 PM 119 mg/dL N Blood chemistry[[id number]] Glucose [Mass/volume] in Serum or Plasma [2345-7] 02/07/2025 10:07 AM 202 mg/dL N Blood chemistry[[id number]] Glucose [Mass/volume] in Serum or Plasma [2345-7] 02/06/2025 12:55 PM 167 mg/dL N Blood chemistry[[id number]] Glucose [Mass/volume] in Serum or Plasma [2345-7] 02/06/2025 08:51 AM 125 mg/dL N Blood chemistry[[id number]] Glucose [Mass/volume] in Serum or Plasma [2345-7] 02/06/2025 03:03 PM 155 mg/dL N Blood chemistry[[id number]] Glucose [Mass/volume] in Serum or Plasma [2345-7] 02/06/2025 08:38 AM 206 mg/dL N Blood chemistry[[id number]] Glucose [Mass/volume] in Serum or Plasma [2345-7] 02/05/2025 11:59 AM 150 mg/dL N Blood chemistry[[id number]] Glucose [Mass/volume] in Serum or Plasma [2345-7] 02/05/2025 08:44 AM 133 mg/dL N Blood chemistry[[id number]] Glucose [Mass/volume] in Serum or Plasma [2345-7] 02/05/2025 04:32 PM 138 mg/dL N Blood chemistry[[id number]] Glucose [Mass/volume] in Serum or Plasma [2345-7] 02/05/2025 10:11 AM 189 mg/dL N Blood chemistry[[id number]] Glucose [Mass/volume] in Serum or Plasma [2345-7] 02/04/2025 01:02 PM 134 mg/dL N Blood chemistry[[id number]] Glucose [Mass/volume] in Serum or Plasma [2345-7] 02/04/2025 12:18 PM 134 mg/dL N Blood chemistry[[id number]] Glucose [Mass/volume] in Serum or Plasma [2345-7] 02/04/2025 09:40 AM 123 mg/dL N Blood chemistry[[id number]] Glucose [Mass/volume] in Serum or Plasma [2345-7] 02/04/2025 05:13 AM 133 mg/dL N Blood chemistry[[id number]] Glucose [Mass/volume] in Serum or Plasma [2345-7] 02/04/2025 09:20 AM 186 mg/dL N Blood chemistry[[id number]] Glucose [Mass/volume] in Serum or Plasma [5-7] 02/03/2025 01:28 PM 214 mg/dL N Blood chemistry[[id number]] Glucose [Mass/volume] in Serum or Plasma [5-7] 02/03/2025 11:13 AM 187 mg/dL N Blood chemistry[[id number]] Glucose [Mass/volume] in Serum or Plasma [5-7] 02/03/2025 10:39 AM 145 mg/dL N Blood chemistry[[id number]] Glucose [Mass/volume] in Serum or Plasma [2344-7] 02/03/2025 04:30 PM 124 mg/dL N Blood chemistry[[id number]] Glucose [Mass/volume] in Serum or Plasma [2345-7] 02/03/2025 08:38 AM 133 mg/dL N Blood chemistry[[id number]] Glucose [Mass/volume] in Serum or Plasma [2345-7] 02/02/2025 10:36 AM 157 mg/dL N Blood chemistry[[id number]] Glucose [Mass/volume] in Serum or Plasma [2345-7] 02/02/2025 08:54 AM 136 mg/dL N Blood chemistry[[id number]] Glucose [Mass/volume] in Serum or Plasma [2345-7] 02/02/2025 03:14 PM 200 mg/dL N Blood chemistry[[id number]] Glucose [Mass/volume] in Serum or Plasma [5-7] 02/02/2025 09:08 AM 186 mg/dL N Blood chemistry[[id number]] Glucose [Mass/volume] in Serum or Plasma [2345-7] 02/01/2025 01:37 PM 134 mg/dL N Blood chemistry[[id number]] Glucose [Mass/volume] in Serum or Plasma [5-7] 02/01/2025 07:19 AM 127 mg/dL N Blood chemistry[[id number]] Glucose [Mass/volume] in Serum or Plasma [2345-7] 02/01/2025 03:24 PM 152 mg/dL N Blood chemistry[[id number]] Glucose [Mass/volume] in Serum or Plasma [2345-7] 02/01/2025 09:03 AM 173 mg/dL N Blood chemistry[[id number]] Glucose [Mass/volume] in Serum or Plasma [2345-7] 01/31/2025 12:54 PM 110 mg/dL N Blood chemistry[[id number]] Glucose [Mass/volume] in Serum or Plasma [2345-7] 01/31/2025 08:45 AM 121 mg/dL N Blood chemistry[[id number]] Glucose [Mass/volume] in Serum or Plasma [2345-7] 01/31/2025 03:21 PM 138 mg/dL N Blood chemistry[[id number]] Glucose [Mass/volume] in Serum or Plasma [2345-7] 01/31/2025 09:49 AM 182 mg/dL N Blood chemistry[[id number]] Glucose [Mass/volume] in Serum or Plasma [2345-7] 01/30/2025 12:54 PM 121 mg/dL N Blood chemistry[[id number]] Glucose [Mass/volume] in Serum or Plasma [2345-7] 01/30/2025 09:33 AM 144 mg/dL N Blood chemistry[[id number]] Glucose [Mass/volume] in Serum or Plasma [2345-7] 01/30/2025 03:56 PM 137 mg/dL N Blood chemistry[[id number]] Glucose [Mass/volume] in Serum or Plasma [2345-7] 01/30/2025 09:20 AM 217 mg/dL N Blood chemistry[[id number]] Glucose [Mass/volume] in Serum or Plasma [2345-7] 01/29/2025 01:57 PM 134 mg/dL N Blood chemistry[[id number]] Glucose [Mass/volume] in Serum or Plasma [2345-7] 01/29/2025 03:12 PM 133 mg/dL N Blood chemistry[[id number]] Glucose [Mass/volume] in Serum or Plasma [2345-7] 01/29/2025 09:11 AM 182 mg/dL N Blood chemistry[[id number]] Glucose [Mass/volume] in Serum or Plasma [2345-7] 01/28/2025 01:05 PM 114 mg/dL N Blood chemistry[[id number]] Glucose [Mass/volume] in Serum or Plasma [2345-7] 01/28/2025 12:21 PM 151 mg/dL N Blood chemistry[[id number]] Glucose [Mass/volume] in Serum or Plasma [2345-7] 01/28/2025 08:54 AM 164 mg/dL N Blood chemistry[[id number]] Glucose [Mass/volume] in Serum or Plasma [2345-7] 01/28/2025 03:10 PM 157 mg/dL N Blood chemistry[[id number]] Glucose [Mass/volume] in Serum or Plasma [2345-7] 01/28/2025 09:48 AM 198 mg/dL N Blood chemistry[[id number]] Glucose [Mass/volume] in Serum or Plasma [2345-7] 01/27/2025 12:10 PM 111 mg/dL N Blood chemistry[[id number]] Glucose [Mass/volume] in Serum or Plasma [2345-7] 01/27/2025 09:17 AM 134 mg/dL N Blood chemistry[[id number]] Glucose [Mass/volume] in Serum or Plasma [2345-7] 01/27/2025 03:26 PM 158 mg/dL N Blood chemistry[[id number]] Glucose [Mass/volume] in Serum or Plasma [2345-7] 01/27/2025 10:37 AM 164 mg/dL N Blood chemistry[[id number]] Glucose [Mass/volume] in Serum or Plasma [2345-7] 01/26/2025 12:38 PM 118 mg/dL N Blood chemistry[[id number]] Glucose [Mass/volume] in Serum or Plasma [2345-7] 01/26/2025 08:28 AM 120 mg/dL N Blood chemistry[[id number]] Glucose [Mass/volume] in Serum or Plasma [2345-7] 01/26/2025 03:02 PM 93 mg/dL N Blood chemistry[[id number]] Glucose [Mass/volume] in Serum or Plasma [2345-7] 01/26/2025 10:20 AM 184 mg/dL N Blood chemistry[[id number]] Glucose [Mass/volume] in Serum or Plasma [2345-7] 01/25/2025 12:29 PM 134 mg/dL N Blood chemistry[[id number]] Glucose [Mass/volume] in Serum or Plasma [2345-7] 01/25/2025 09:37 AM 141 mg/dL N Blood chemistry[[id number]] Glucose [Mass/volume] in Serum or Plasma [2345-7] 01/25/2025 03:43 PM 134 mg/dL N Blood chemistry[[id number]] Glucose [Mass/volume] in Serum or Plasma [2345-7] 01/25/2025 09:17 AM 201 mg/dL N Blood chemistry[[id number]] Glucose [Mass/volume] in Serum or Plasma [2345-7] 01/24/2025 02:01 PM 132 mg/dL N Blood chemistry[[id number]] Glucose [Mass/volume] in Serum or Plasma [2345-7] 01/24/2025 01:41 PM 140 mg/dL N Blood chemistry[[id number]] Glucose [Mass/volume] in Serum or Plasma [2345-7] 01/24/2025 07:40 AM 140 mg/dL N Blood chemistry[[id number]] Glucose [Mass/volume] in Serum or Plasma [2345-7] 01/24/2025 03:15 PM 138 mg/dL N Blood chemistry[[id number]] Glucose [Mass/volume] in Serum or Plasma [2345-7] 01/24/2025 09:48 AM 233 mg/dL N Blood chemistry[[id number]] Glucose [Mass/volume] in Serum or Plasma [2345-7] 01/23/2025 01:14 PM 164 mg/dL N Blood chemistry[[id number]] Glucose [Mass/volume] in Serum or Plasma [2345-7] 01/23/2025 12:24 PM 157 mg/dL N Blood chemistry[[id number]] Glucose [Mass/volume] in Serum or Plasma [2345-7] 01/23/2025 09:05 AM 137 mg/dL N Blood chemistry[[id number]] Glucose [Mass/volume] in Serum or Plasma [2345-7] 01/23/2025 03:28 PM 138 mg/dL N Blood chemistry[[id number]] Glucose [Mass/volume] in Serum or Plasma [2345-7] 01/23/2025 09:43 AM 183 mg/dL N Blood chemistry[[id number]] Glucose [Mass/volume] in Serum or Plasma [2345-7] 01/22/2025 12:52 PM 100 mg/dL N Blood chemistry[[id number]] Glucose [Mass/volume] in Serum or Plasma [2345-7] 01/22/2025 11:43 AM 105 mg/dL N Blood chemistry[[id number]] Glucose [Mass/volume] in Serum or Plasma [2345-7] 01/22/2025 07:41 AM 115 mg/dL N Blood chemistry[[id number]] Glucose [Mass/volume] in Serum or Plasma [2345-7] 01/22/2025 04:06 PM 127 mg/dL N Blood chemistry[[id number]] Glucose [Mass/volume] in Serum or Plasma [2345-7] 01/22/2025 09:45 AM 164 mg/dL N Blood chemistry[[id number]] Glucose [Mass/volume] in Serum or Plasma [2345-7] 01/21/2025 12:37 PM 105 mg/dL N Glucose [Mass/volume] in Serum or Plasma [2345-7] 01/21/2025 12:37 PM 105 mg/dL N Blood chemistry[[id number]] Glucose [Mass/volume] in Serum or Plasma [2345-7] 01/21/2025 08:23 AM 106 mg/dL N Blood chemistry[[id number]] Glucose [Mass/volume] in Serum or Plasma [2345-7] 01/21/2025 04:34 PM 115 mg/dL N Blood chemistry[[id number]] Glucose [Mass/volume] in Serum or Plasma [2345-7] 01/21/2025 09:00 AM 169 mg/dL N Blood chemistry[[id number]] Glucose [Mass/volume] in Serum or Plasma [2345-7] 01/20/2025 01:03 PM 142 mg/dL N Blood chemistry[[id number]] Glucose [Mass/volume] in Serum or Plasma [2345-7] 01/20/2025 08:04 AM 134 mg/dL N Blood chemistry[[id number]] Glucose [Mass/volume] in Serum or Plasma [2345-7] 01/20/2025 03:21 PM 132 mg/dL N Blood chemistry[[id number]] Glucose [Mass/volume] in Serum or Plasma [2345-7] 01/20/2025 09:31 AM 192 mg/dL N Blood chemistry[[id number]] Glucose [Mass/volume] in Serum or Plasma [2345-7] 01/19/2025 02:47 PM 184 mg/dL N Blood chemistry[[id number]] Glucose [Mass/volume] in Serum or Plasma [2345-7] 01/19/2025 12:12 PM 166 mg/dL N Blood chemistry[[id number]] Glucose [Mass/volume] in Serum or Plasma [2345-7] 01/19/2025 09:02 AM 143 mg/dL N Blood chemistry[[id number]] Glucose [Mass/volume] in Serum or Plasma [2345-7] 01/19/2025 03:36 PM 132 mg/dL N Blood chemistry[[id number]] Glucose [Mass/volume] in Serum or Plasma [2345-7] 01/19/2025 09:05 AM 188 mg/dL N Blood chemistry[[id number]] Glucose [Mass/volume] in Serum or Plasma [2345-7] 01/18/2025 01:01 PM 154 mg/dL N Blood chemistry[[id number]] Glucose [Mass/volume] in Serum or Plasma [2345-7] 01/18/2025 08:32 AM 138 mg/dL N Blood chemistry[[id number]] Glucose [Mass/volume] in Serum or Plasma [2345-7] 01/18/2025 04:24 PM 148 mg/dL N Blood chemistry[[id number]] Glucose [Mass/volume] in Serum or Plasma [2345-7] 01/18/2025 09:08 AM 209 mg/dL N Blood chemistry[[id number]] Glucose [Mass/volume] in Serum or Plasma [2345-7] 01/17/2025 12:54 PM 140 mg/dL N Blood chemistry[[id number]] Glucose [Mass/volume] in Serum or Plasma [2345-7] 01/17/2025 07:27 AM 137 mg/dL N Blood chemistry[[id number]] Glucose [Mass/volume] in Serum or Plasma [2345-7] 01/17/2025 03:23 PM 155 mg/dL N Blood chemistry[[id number]] Glucose [Mass/volume] in Serum or Plasma [2345-7] 01/17/2025 09:54 AM 171 mg/dL N Blood chemistry[[id number]] Glucose [Mass/volume] in Serum or Plasma [2345-7] 01/16/2025 01:55 PM 118 mg/dL N Blood chemistry[[id number]] Glucose [Mass/volume] in Serum or Plasma [2345-7] 01/16/2025 11:35 AM 138 mg/dL N Blood chemistry[[id number]] Glucose [Mass/volume] in Serum or Plasma [2345-7] 01/16/2025 07:34 AM 140 mg/dL N Blood chemistry[[id number]] Glucose [Mass/volume] in Serum or Plasma [2345-7] 01/16/2025 05:03 AM 138 mg/dL N Blood chemistry[[id number]] Glucose [Mass/volume] in Serum or Plasma [2345-7] 01/16/2025 09:17 AM 186 mg/dL N Blood chemistry[[id number]] Glucose [Mass/volume] in Serum or Plasma [2345-7] 01/15/2025 12:53 PM 164 mg/dL N Blood chemistry[[id number]] Glucose [Mass/volume] in Serum or Plasma [2345-7] 01/15/2025 09:54 AM 146 mg/dL N Blood chemistry[[id number]] Glucose [Mass/volume] in Serum or Plasma [2345-7] 01/15/2025 03:17 PM 131 mg/dL N Blood chemistry[[id number]] Glucose [Mass/volume] in Serum or Plasma [2345-7] 01/15/2025 09:12 AM 200 mg/dL N Blood chemistry[[id number]] Glucose [Mass/volume] in Serum or Plasma [2345-7] 01/14/2025 01:20 PM 164 mg/dL N Blood chemistry[[id number]] Glucose [Mass/volume] in Serum or Plasma [2345-7] 01/14/2025 09:01 AM 137 mg/dL N Blood chemistry[[id number]] Glucose [Mass/volume] in Serum or Plasma [2345-7] 01/14/2025 03:42 PM 158 mg/dL N Blood chemistry[[id number]] Glucose [Mass/volume] in Serum or Plasma [2345-7] 01/14/2025 10:40 AM 190 mg/dL N Blood chemistry[[id number]] Glucose [Mass/volume] in Serum or Plasma [2345-7] 01/13/2025 12:50 PM 124 mg/dL N Blood chemistry[[id number]] Glucose [Mass/volume] in Serum or Plasma [2345-7] 01/13/2025 08:43 AM 144 mg/dL N Blood chemistry[[id number]] Glucose [Mass/volume] in Serum or Plasma [2345-7] 01/13/2025 04:16 PM 138 mg/dL N Blood chemistry[[id number]] Glucose [Mass/volume] in Serum or Plasma [2345-7] 01/13/2025 09:42 AM 178 mg/dL N Blood chemistry[[id number]] Glucose [Mass/volume] in Serum or Plasma [2345-7] 01/12/2025 12:51 PM 151 mg/dL N Blood chemistry[[id number]] Glucose [Mass/volume] in Serum or Plasma [2345-7] 01/12/2025 08:47 AM 138 mg/dL N Blood chemistry[[id number]] Glucose [Mass/volume] in Serum or Plasma [2345-7] 01/12/2025 04:25 PM 142 mg/dL N Blood chemistry[[id number]] Glucose [Mass/volume] in Serum or Plasma [2345-7] 01/12/2025 09:21 AM 161 mg/dL N Blood chemistry[[id number]] Glucose [Mass/volume] in Serum or Plasma [2345-7] 01/11/2025 02:28 PM 174 mg/dL N Blood chemistry[[id number]] Glucose [Mass/volume] in Serum or Plasma [2345-7] 01/11/2025 12:11 PM 164 mg/dL N Blood chemistry[[id number]] Glucose [Mass/volume] in Serum or Plasma [2345-7] 01/11/2025 07:56 AM 141 mg/dL N Blood chemistry[[id number]] Glucose [Mass/volume] in Serum or Plasma [2345-7] 01/11/2025 04:56 PM 134 mg/dL N Blood chemistry[[id number]] Glucose [Mass/volume] in Serum or Plasma [2345-7] 01/11/2025 09:11 AM 205 mg/dL N Blood chemistry[[id number]] Glucose [Mass/volume] in Serum or Plasma [2345-7] 01/10/2025 12:23 PM 189 mg/dL N Blood chemistry[[id number]] Glucose [Mass/volume] in Serum or Plasma [2345-7] 01/10/2025 08:22 AM 130 mg/dL N Blood chemistry[[id number]] Glucose [Mass/volume] in Serum or Plasma [2345-7] 01/10/2025 04:06 PM 139 mg/dL N Blood chemistry[[id number]] Glucose [Mass/volume] in Serum or Plasma [2345-7] 01/10/2025 09:10 AM 171 mg/dL N Blood chemistry[[id number]] Glucose [Mass/volume] in Serum or Plasma [2345-7] 01/09/2025 01:36 PM 201 mg/dL N Blood chemistry[[id number]] Glucose [Mass/volume] in Serum or Plasma [2345-7] 01/09/2025 11:22 AM 167 mg/dL N Blood chemistry[[id number]] Glucose [Mass/volume] in Serum or Plasma [2345-7] 01/09/2025 08:20 AM 142 mg/dL N Blood chemistry[[id number]] Glucose [Mass/volume] in Serum or Plasma [2345-7] 01/09/2025 03:21 PM 132 mg/dL N Blood chemistry[[id number]] Glucose [Mass/volume] in Serum or Plasma [2345-7] 01/09/2025 10:10 AM 120 mg/dL N Blood chemistry[[id number]] Glucose [Mass/volume] in Serum or Plasma [2345-7] 01/08/2025 02:14 PM 154 mg/dL N Blood chemistry[[id number]] Glucose [Mass/volume] in Serum or Plasma [2345-7] 01/08/2025 08:24 AM 124 mg/dL N Blood chemistry[[id number]] Glucose [Mass/volume] in Serum or Plasma [2345-7] 01/08/2025 04:09 PM 124 mg/dL N Blood chemistry[[id number]] Glucose [Mass/volume] in Serum or Plasma [2345-7] 01/08/2025 10:42 AM 145 mg/dL N Blood chemistry[[id number]] Glucose [Mass/volume] in Serum or Plasma [2345-7] 01/07/2025 02:11 PM 182 mg/dL N Blood chemistry[[id number]] Glucose [Mass/volume] in Serum or Plasma [2345-7] 01/07/2025 09:02 AM 123 mg/dL N Blood chemistry[[id number]] Glucose [Mass/volume] in Serum or Plasma [2345-7] 01/07/2025 06:03 AM 143 mg/dL N Blood chemistry[[id number]] Glucose [Mass/volume] in Serum or Plasma [2345-7] 01/07/2025 09:06 AM 183 mg/dL N Blood chemistry[[id number]] Glucose [Mass/volume] in Serum or Plasma [2345-7] 01/06/2025 12:49 PM 206 mg/dL N Blood chemistry[[id number]] Glucose [Mass/volume] in Serum or Plasma [2345-7] 01/06/2025 08:08 AM 251 mg/dL N Blood chemistry[[id number]] Glucose [Mass/volume] in Serum or Plasma [2345-7] 01/06/2025 05:34 AM 126 mg/dL N Blood chemistry[[id number]] Glucose [Mass/volume] in Serum or Plasma [2345-7] 01/06/2025 10:25 AM 175 mg/dL N Blood chemistry[[id number]] Glucose [Mass/volume] in Serum or Plasma [2345-7] 01/05/2025 12:36 PM 134 mg/dL N Blood chemistry[[id number]] Glucose [Mass/volume] in Serum or Plasma [2345-7] 01/05/2025 11:53 AM 134 mg/dL N Blood chemistry[[id number]] Glucose [Mass/volume] in Serum or Plasma [2345-7] 01/05/2025 08:56 AM 147 mg/dL N Blood chemistry[[id number]] Glucose [Mass/volume] in Serum or Plasma [2345-7] 01/05/2025 03:55 PM 145 mg/dL N Blood chemistry[[id number]] Glucose [Mass/volume] in Serum or Plasma [2345-7] 01/05/2025 09:58 AM 217 mg/dL N Blood chemistry[[id number]] Glucose [Mass/volume] in Serum or Plasma [2345-7] 01/04/2025 02:47 PM 191 mg/dL N Blood chemistry[[id number]] Glucose [Mass/volume] in Serum or Plasma [2345-7] 01/04/2025 10:24 AM 124 mg/dL N Blood chemistry[[id number]] Glucose [Mass/volume] in Serum or Plasma [2345-7] 01/04/2025 05:38 AM 190 mg/dL N Blood chemistry[[id number]] Glucose [Mass/volume] in Serum or Plasma [2345-7] 01/04/2025 09:00 AM 194 mg/dL N Blood chemistry[[id number]] Glucose [Mass/volume] in Serum or Plasma [2345-7] 01/03/2025 12:56 PM 148 mg/dL N Blood chemistry[[id number]] Glucose [Mass/volume] in Serum or Plasma [2345-7] 01/03/2025 08:59 AM 140 mg/dL N Blood chemistry[[id number]] Glucose [Mass/volume] in Serum or Plasma [2345-7] 01/03/2025 03:25 PM 146 mg/dL N Blood chemistry[[id number]] Glucose [Mass/volume] in Serum or Plasma [2345-7] 01/03/2025 09:30 AM 186 mg/dL N Blood chemistry[[id number]] Glucose [Mass/volume] in Serum or Plasma [2345-7] 01/02/2025 02:37 PM 171 mg/dL N Blood chemistry[[id number]] Glucose [Mass/volume] in Serum or Plasma [2345-7] 01/02/2025 09:11 AM 150 mg/dL N Blood chemistry[[id number]] Glucose [Mass/volume] in Serum or Plasma [2345-7] 01/02/2025 04:57 PM 193 mg/dL N Blood chemistry[[id number]] Glucose [Mass/volume] in Serum or Plasma [2345-7] 01/01/2025 12:59 PM 205 mg/dL N Blood chemistry[[id number]] Glucose [Mass/volume] in Serum or Plasma [2345-7] 01/01/2025 08:18 AM 164 mg/dL N Blood chemistry[[id number]] Glucose [Mass/volume] in Serum or Plasma [2345-7] 01/01/2025 03:46 PM 224 mg/dL N Blood chemistry[[id number]] Glucose [Mass/volume] in Serum or Plasma [2345-7] 01/01/2025 09:43 AM 226 mg/dL N Blood chemistry[[id number]] Glucose [Mass/volume] in Serum or Plasma [2345-7] 12/31/2024 02:09 PM 261 mg/dL N Blood chemistry[[id number]] Glucose [Mass/volume] in Serum or Plasma [2345-7] 12/31/2024 09:11 AM 143 mg/dL N Blood chemistry[[id number]] Glucose [Mass/volume] in Serum or Plasma [2345-7] 12/31/2024 03:39 PM 123 mg/dL N Blood chemistry[[id number]] Glucose [Mass/volume] in Serum or Plasma [2345-7] 12/31/2024 10:01 AM 236 mg/dL N Blood chemistry[[id number]] Glucose [Mass/volume] in Serum or Plasma [2345-7] 12/30/2024 12:58 PM 152 mg/dL N Blood chemistry[[id number]] Glucose [Mass/volume] in Serum or Plasma [2345-7] 12/30/2024 10:55 AM 148 mg/dL N Blood chemistry[[id number]] Glucose [Mass/volume] in Serum or Plasma [2345-7] 12/30/2024 07:44 AM 139 mg/dL N Blood chemistry[[id number]] Glucose [Mass/volume] in Serum or Plasma [2345-7] 12/30/2024 04:47 PM 160 mg/dL N Blood chemistry[[id number]] Glucose [Mass/volume] in Serum or Plasma [2345-7] 12/30/2024 09:35 AM 194 mg/dL N Blood chemistry[[id number]] Glucose [Mass/volume] in Serum or Plasma [2345-7] 12/29/2024 12:53 PM 164 mg/dL N Blood chemistry[[id number]] Glucose [Mass/volume] in Serum or Plasma [2345-7] 12/29/2024 08:53 AM 142 mg/dL N Blood chemistry[[id number]] Glucose [Mass/volume] in Serum or Plasma [2345-7] 12/29/2024 03:44 PM 180 mg/dL N Blood chemistry[[id number]] Glucose [Mass/volume] in Serum or Plasma [2345-7] 12/29/2024 09:48 AM 189 mg/dL N Blood chemistry[[id number]] Glucose [Mass/volume] in Serum or Plasma [2345-7] 12/28/2024 02:10 PM 214 mg/dL N Blood chemistry[[id number]] Glucose [Mass/volume] in Serum or Plasma [2345-7] 12/28/2024 03:16 PM 171 mg/dL N Blood chemistry[[id number]] Glucose [Mass/volume] in Serum or Plasma [2345-7] 12/28/2024 09:25 AM 171 mg/dL N Blood chemistry[[id number]] Glucose [Mass/volume] in Serum or Plasma [2345-7] 12/27/2024 01:19 PM 210 mg/dL N Blood chemistry[[id number]] Glucose [Mass/volume] in Serum or Plasma [2345-7] 12/27/2024 09:03 AM 131 mg/dL N Blood chemistry[[id number]] Glucose [Mass/volume] in Serum or Plasma [2345-7] 12/27/2024 03:35 PM 150 mg/dL N Blood chemistry[[id number]] Glucose [Mass/volume] in Serum or Plasma [2345-7] 12/27/2024 10:18 AM 248 mg/dL N Blood chemistry[[id number]] Glucose [Mass/volume] in Serum or Plasma [2345-7] 12/26/2024 02:51 PM 215 mg/dL N Blood chemistry[[id number]] Glucose [Mass/volume] in Serum or Plasma [2345-7] 12/26/2024 08:36 AM 167 mg/dL N Blood chemistry[[id number]] Glucose [Mass/volume] in Serum or Plasma [2345-7] 12/26/2024 03:18 PM 155 mg/dL N Blood chemistry[[id number]] Glucose [Mass/volume] in Serum or Plasma [2345-7] 12/26/2024 09:17 AM 210 mg/dL N Blood chemistry[[id number]] Glucose [Mass/volume] in Serum or Plasma [2345-7] 12/25/2024 01:51 PM 115 mg/dL N Blood chemistry[[id number]] Glucose [Mass/volume] in Serum or Plasma [2345-7] 12/25/2024 08:20 AM 102 mg/dL N Blood chemistry[[id number]] Glucose [Mass/volume] in Serum or Plasma [2345-7] 12/25/2024 02:58 PM 222 mg/dL N Blood chemistry[[id number]] Glucose [Mass/volume] in Serum or Plasma [2345-7] 12/25/2024 09:33 AM 232 mg/dL N Blood chemistry[[id number]] Glucose [Mass/volume] in Serum or Plasma [2345-7] 12/24/2024 02:08 PM 135 mg/dL N Blood chemistry[[id number]] Glucose [Mass/volume] in Serum or Plasma [2345-7] 12/24/2024 07:40 AM 148 mg/dL N Blood chemistry[[id number]] Glucose [Mass/volume] in Serum or Plasma [2345-7] 12/24/2024 03:21 PM 124 mg/dL N Blood chemistry[[id number]] Glucose [Mass/volume] in Serum or Plasma [2345-7] 12/24/2024 10:07 AM 256 mg/dL N Blood chemistry[[id number]] Glucose [Mass/volume] in Serum or Plasma [2345-7] 12/23/2024 01:44 PM 204 mg/dL N Blood chemistry[[id number]] Glucose [Mass/volume] in Serum or Plasma [2345-7] 12/23/2024 08:37 AM 164 mg/dL N Blood chemistry[[id number]] Glucose [Mass/volume] in Serum or Plasma [2345-7] 12/23/2024 03:23 PM 200 mg/dL N Blood chemistry[[id number]] Glucose [Mass/volume] in Serum or Plasma [2345-7] 12/23/2024 08:29 AM 192 mg/dL N Blood chemistry[[id number]] Glucose [Mass/volume] in Serum or Plasma [2345-7] 12/22/2024 01:50 PM 216 mg/dL N Blood chemistry[[id number]] Glucose [Mass/volume] in Serum or Plasma [2345-7] 12/22/2024 08:03 AM 164 mg/dL N Blood chemistry[[id number]] Glucose [Mass/volume] in Serum or Plasma [2345-7] 12/22/2024 04:00 PM 154 mg/dL N Blood chemistry[[id number]] Glucose [Mass/volume] in Serum or Plasma [2345-7] 12/22/2024 10:00 AM 218 mg/dL N Blood chemistry[[id number]] Glucose [Mass/volume] in Serum or Plasma [2345-7] 12/21/2024 02:52 PM 167 mg/dL N Blood chemistry[[id number]] Glucose [Mass/volume] in Serum or Plasma [2345-7] 12/21/2024 08:30 AM 143 mg/dL N Blood chemistry[[id number]] Glucose [Mass/volume] in Serum or Plasma [2345-7] 12/21/2024 04:04 PM 162 mg/dL N Blood chemistry[[id number]] Glucose [Mass/volume] in Serum or Plasma [2345-7] 12/21/2024 10:37 AM 226 mg/dL N Blood chemistry[[id number]] Glucose [Mass/volume] in Serum or Plasma [2345-7] 12/20/2024 01:06 PM 176 mg/dL N Blood chemistry[[id number]] Glucose [Mass/volume] in Serum or Plasma [2345-7] 12/20/2024 04:09 PM 170 mg/dL N Blood chemistry[[id number]] Glucose [Mass/volume] in Serum or Plasma [2345-7] 12/20/2024 08:51 AM 158 mg/dL N Blood chemistry[[id number]] Glucose [Mass/volume] in Serum or Plasma [2345-7] 12/20/2024 09:53 AM 229 mg/dL N Blood chemistry[[id number]] Glucose [Mass/volume] in Serum or Plasma [2345-7] 12/19/2024 12:44 PM 146 mg/dL N Blood chemistry[[id number]] Glucose [Mass/volume] in Serum or Plasma [2345-7] 12/19/2024 08:43 AM 138 mg/dL N Blood chemistry[[id number]] Glucose [Mass/volume] in Serum or Plasma [2345-7] 12/19/2024 05:18 AM 148 mg/dL N Blood chemistry[[id number]] Glucose [Mass/volume] in Serum or Plasma [2345-7] 12/19/2024 09:44 AM 228 mg/dL N Blood chemistry[[id number]] Glucose [Mass/volume] in Serum or Plasma [2345-7] 12/18/2024 02:28 PM 184 mg/dL N Blood chemistry[[id number]] Glucose [Mass/volume] in Serum or Plasma [2345-7] 12/18/2024 07:57 AM 133 mg/dL N Blood chemistry[[id number]] Glucose [Mass/volume] in Serum or Plasma [2345-7] 12/18/2024 03:39 PM 142 mg/dL N Blood chemistry[[id number]] Glucose [Mass/volume] in Serum or Plasma [2345-7] 12/18/2024 10:46 AM 228 mg/dL N Blood chemistry[[id number]] Glucose [Mass/volume] in Serum or Plasma [2345-7] 12/17/2024 03:41 PM 214 mg/dL N Blood chemistry[[id number]] Glucose [Mass/volume] in Serum or Plasma [2345-7] 12/17/2024 09:48 AM 146 mg/dL N Blood chemistry[[id number]] Glucose [Mass/volume] in Serum or Plasma [2345-7] 12/17/2024 05:18 PM 171 mg/dL N Blood chemistry[[id number]] Glucose [Mass/volume] in Serum or Plasma [2345-7] 12/17/2024 10:51 AM 261 mg/dL N Blood chemistry[[id number]] Glucose [Mass/volume] in Serum or Plasma [2345-7] 12/16/2024 01:51 PM 150 mg/dL N Blood chemistry[[id number]] Glucose [Mass/volume] in Serum or Plasma [2345-7] 12/16/2024 10:30 AM 148 mg/dL N Blood chemistry[[id number]] Glucose [Mass/volume] in Serum or Plasma [2345-7] 12/16/2024 03:22 PM 192 mg/dL N Blood chemistry[[id number]] Glucose [Mass/volume] in Serum or Plasma [2345-7] 12/16/2024 11:45 AM 238 mg/dL N Blood chemistry[[id number]] Glucose [Mass/volume] in Serum or Plasma [2345-7] 12/15/2024 01:43 PM 156 mg/dL N Blood chemistry[[id number]] Glucose [Mass/volume] in Serum or Plasma [2345-7] 12/15/2024 04:15 PM 149 mg/dL N Blood chemistry[[id number]] Glucose [Mass/volume] in Serum or Plasma [2345-7] 12/15/2024 11:12 AM 145 mg/dL N Blood chemistry[[id number]] Glucose [Mass/volume] in Serum or Plasma [2345-7] 12/15/2024 10:35 AM 245 mg/dL N Blood chemistry[[id number]] Glucose [Mass/volume] in Serum or Plasma [2345-7] 12/14/2024 02:31 PM 186 mg/dL N Blood chemistry[[id number]] Glucose [Mass/volume] in Serum or Plasma [2345-7] 12/14/2024 05:19 PM 275 mg/dL N Blood chemistry[[id number]] Glucose [Mass/volume] in Serum or Plasma [2345-7] 12/14/2024 10:19 AM 214 mg/dL N Blood chemistry[[id number]] Glucose [Mass/volume] in Serum or Plasma [2345-7] 12/14/2024 10:04 AM 176 mg/dL N Blood chemistry[[id number]] Glucose [Mass/volume] in Serum or Plasma [2345-7] 12/13/2024 02:52 PM 167 mg/dL N Blood chemistry[[id number]] Glucose [Mass/volume] in Serum or Plasma [2345-7] 12/13/2024 04:12 PM 153 mg/dL N Blood chemistry[[id number]] Glucose [Mass/volume] in Serum or Plasma [2345-7] 12/13/2024 09:01 AM 148 mg/dL N Blood chemistry[[id number]] Glucose [Mass/volume] in Serum or Plasma [2345-7] 12/13/2024 10:35 AM 275 mg/dL N Blood chemistry[[id number]] Glucose [Mass/volume] in Serum or Plasma [2345-7] 12/12/2024 02:39 PM 187 mg/dL N Blood chemistry[[id number]] Glucose [Mass/volume] in Serum or Plasma [2345-7] 12/12/2024 09:38 AM 146 mg/dL N Blood chemistry[[id number]] Glucose [Mass/volume] in Serum or Plasma [2345-7] 12/12/2024 04:16 PM 218 mg/dL N Blood chemistry[[id number]] Glucose [Mass/volume] in Serum or Plasma [2345-7] 12/12/2024 11:00 AM 245 mg/dL N Blood chemistry[[id number]] Glucose [Mass/volume] in Serum or Plasma [2345-7] 12/11/2024 03:31 PM 144 mg/dL N Blood chemistry[[id number]] Glucose [Mass/volume] in Serum or Plasma [2345-7] 12/11/2024 09:39 AM 146 mg/dL N Blood chemistry[[id number]] Glucose [Mass/volume] in Serum or Plasma [2345-7] 12/11/2024 04:28 PM 157 mg/dL N Blood chemistry[[id number]] Glucose [Mass/volume] in Serum or Plasma [2345-7] 12/11/2024 10:14 AM 223 mg/dL N Blood chemistry[[id number]] Glucose [Mass/volume] in Serum or Plasma [2345-7] 12/10/2024 03:38 PM 146 mg/dL N Blood chemistry[[id number]] Glucose [Mass/volume] in Serum or Plasma [2345-7] 12/10/2024 09:42 AM 132 mg/dL N Blood chemistry[[id number]] Glucose [Mass/volume] in Serum or Plasma [2345-7] 12/10/2024 05:00 PM 134 mg/dL N Blood chemistry[[id number]] Glucose [Mass/volume] in Serum or Plasma [2345-7] 12/10/2024 11:41 AM 276 mg/dL N Blood chemistry[[id number]] Glucose [Mass/volume] in Serum or Plasma [2345-7] 12/09/2024 03:08 PM 187 mg/dL N Blood chemistry[[id number]] Glucose [Mass/volume] in Serum or Plasma [2345-7] 12/09/2024 10:36 AM 134 mg/dL N Blood chemistry[[id number]] Glucose [Mass/volume] in Serum or Plasma [2345-7] 12/09/2024 04:24 PM 155 mg/dL N Blood chemistry[[id number]] Glucose [Mass/volume] in Serum or Plasma [2345-7] 12/09/2024 11:13 AM 243 mg/dL N Blood chemistry[[id number]] Glucose [Mass/volume] in Serum or Plasma [2345-7] 12/08/2024 02:26 PM 138 mg/dL N Blood chemistry[[id number]] Glucose [Mass/volume] in Serum or Plasma [2345-7] 12/08/2024 05:01 PM 212 mg/dL N Blood chemistry[[id number]] Glucose [Mass/volume] in Serum or Plasma [2345-7] 12/08/2024 10:57 AM 178 mg/dL N Blood chemistry[[id number]] Glucose [Mass/volume] in Serum or Plasma [2345-7] 12/08/2024 11:18 AM 306 mg/dL N Blood chemistry[[id number]] Glucose [Mass/volume] in Serum or Plasma [2345-7] 12/07/2024 04:05 PM 257 mg/dL N Blood chemistry[[id number]] Glucose [Mass/volume] in Serum or Plasma [2345-7] 12/07/2024 09:43 AM 207 mg/dL N Blood chemistry[[id number]] Glucose [Mass/volume] in Serum or Plasma [2345-7] 12/07/2024 02:13 PM 145 mg/dL N Blood chemistry[[id number]] Glucose [Mass/volume] in Serum or Plasma [2345-7] 12/07/2024 10:56 AM 122 mg/dL N Blood chemistry[[id number]] Glucose [Mass/volume] in Serum or Plasma [2345-7] 12/06/2024 01:48 PM 132 mg/dL N Blood chemistry[[id number]] Glucose [Mass/volume] in Serum or Plasma [2345-7] 12/06/2024 04:54 PM 236 mg/dL N Blood chemistry[[id number]] Glucose [Mass/volume] in Serum or Plasma [2345-7] 12/06/2024 08:23 AM 176 mg/dL N Blood chemistry[[id number]] Glucose [Mass/volume] in Serum or Plasma [2345-7] 12/06/2024 10:33 AM 248 mg/dL N Blood chemistry[[id number]] Glucose [Mass/volume] in Serum or Plasma [2345-7] 12/05/2024 03:05 PM 154 mg/dL N Blood chemistry[[id number]] Glucose [Mass/volume] in Serum or Plasma [2345-7] 12/05/2024 09:57 AM 150 mg/dL N Blood chemistry[[id number]] Glucose [Mass/volume] in Serum or Plasma [2345-7] 12/05/2024 02:15 PM 143 mg/dL N Blood chemistry[[id number]] Glucose [Mass/volume] in Serum or Plasma [2345-7] 12/05/2024 11:19 AM 211 mg/dL N Blood chemistry[[id number]] Glucose [Mass/volume] in Serum or Plasma [2345-7] 12/04/2024 02:33 PM 238 mg/dL N Blood chemistry[[id number]] Glucose [Mass/volume] in Serum or Plasma [2345-7] 12/04/2024 09:07 AM 151 mg/dL N Blood chemistry[[id number]] Glucose [Mass/volume] in Serum or Plasma [2345-7] 12/04/2024 04:37 PM 197 mg/dL N Blood chemistry[[id number]] Glucose [Mass/volume] in Serum or Plasma [2345-7] 12/04/2024 11:07 AM 266 mg/dL N Blood chemistry[[id number]] Glucose [Mass/volume] in Serum or Plasma [2345-7] 12/03/2024 03:26 PM 141 mg/dL N Blood chemistry[[id number]] Glucose [Mass/volume] in Serum or Plasma [2345-7] 12/03/2024 09:22 AM 154 mg/dL N Blood chemistry[[id number]] Glucose [Mass/volume] in Serum or Plasma [2345-7] 12/03/2024 04:35 PM 249 mg/dL N Blood chemistry[[id number]] Glucose [Mass/volume] in Serum or Plasma [2345-7] 12/03/2024 11:30 AM 216 mg/dL N Blood chemistry[[id number]] Glucose [Mass/volume] in Serum or Plasma [2345-7] 12/02/2024 02:05 PM 144 mg/dL N Blood chemistry[[id number]] Glucose [Mass/volume] in Serum or Plasma [2345-7] 12/02/2024 10:37 AM 176 mg/dL N Blood chemistry[[id number]] Glucose [Mass/volume] in Serum or Plasma [2345-7] 12/02/2024 06:23 AM 234 mg/dL N Blood chemistry[[id number]] Glucose [Mass/volume] in Serum or Plasma [2345-7] 12/02/2024 10:59 AM 138 mg/dL N Blood chemistry[[id number]] Glucose [Mass/volume] in Serum or Plasma [2345-7] 12/01/2024 02:25 PM 158 mg/dL N Blood chemistry[[id number]] Glucose [Mass/volume] in Serum or Plasma [2345-7] 12/01/2024 10:07 AM 148 mg/dL N Blood chemistry[[id number]] Glucose [Mass/volume] in Serum or Plasma [2345-7] 12/01/2024 04:37 PM 188 mg/dL N Blood chemistry[[id number]] Glucose [Mass/volume] in Serum or Plasma [2345-7] 12/01/2024 10:22 AM 267 mg/dL N Blood chemistry[[id number]] Glucose [Mass/volume] in Serum or Plasma [2345-7] 11/30/2024 02:48 PM 201 mg/dL N Blood chemistry[[id number]] Glucose [Mass/volume] in Serum or Plasma [2345-7] 11/30/2024 04:20 PM 158 mg/dL N Blood chemistry[[id number]] Glucose [Mass/volume] in Serum or Plasma [2345-7] 11/30/2024 11:00 AM 275 mg/dL N Blood chemistry[[id number]] Glucose [Mass/volume] in Serum or Plasma [2345-7] 11/29/2024 11:59 AM 202 mg/dL N Blood chemistry[[id number]] Glucose [Mass/volume] in Serum or Plasma [2345-7] 11/29/2024 04:48 PM 219 mg/dL N Blood chemistry[[id number]] Glucose [Mass/volume] in Serum or Plasma [2345-7] 11/29/2024 11:14 AM 182 mg/dL N Blood chemistry[[id number]] Glucose [Mass/volume] in Serum or Plasma [2345-7] 11/29/2024 10:35 AM 188 mg/dL N Blood chemistry[[id number]] Glucose [Mass/volume] in Serum or Plasma [2345-7] 11/28/2024 03:05 PM 209 mg/dL N Blood chemistry[[id number]] Glucose [Mass/volume] in Serum or Plasma [2345-7] 11/28/2024 11:16 AM 171 mg/dL N Blood chemistry[[id number]] Glucose [Mass/volume] in Serum or Plasma [2345-7] 11/28/2024 04:45 PM 212 mg/dL N Blood chemistry[[id number]] Glucose [Mass/volume] in Serum or Plasma [2345-7] 11/28/2024 08:31 AM 223 mg/dL N Blood chemistry[] Glucose [Mass/volume] in Serum or Plasma [2345-7] 11/27/2024 11:40 AM 150 mg/dL N Blood chemistry[[id number]] Glucose [Mass/volume] in Serum or Plasma [2345-7] 11/27/2024 10:17 AM 152 mg/dL N Blood chemistry[[id number]] Glucose [Mass/volume] in Serum or Plasma [2345-7] 11/27/2024 04:43 PM 271 mg/dL N Blood chemistry[[id number]] Glucose [Mass/volume] in Serum or Plasma [2345-7] 11/27/2024 10:33 AM 200 mg/dL N Blood chemistry[[id number]] Glucose [Mass/volume] in Serum or Plasma [2345-7] 11/26/2024 11:22 AM 213 mg/dL N Blood chemistry[[id number]] Glucose [Mass/volume] in Serum or Plasma [2345-7] 11/26/2024 09:40 AM 192 mg/dL N Blood chemistry[[id number]] Glucose [Mass/volume] in Serum or Plasma [2345-7] 11/26/2024 04:21 PM 266 mg/dL N Blood chemistry[[id number]] Glucose [Mass/volume] in Serum or Plasma [2345-7] 11/26/2024 11:40 AM 221 mg/dL N Blood chemistry[[id number]] Glucose [Mass/volume] in Serum or Plasma [2345-7] 11/25/2024 04:01 PM 204 mg/dL N Blood chemistry[[id number]] Glucose [Mass/volume] in Serum or Plasma [2345-7] 11/25/2024 09:57 AM 146 mg/dL N Blood chemistry[[id number]] Glucose [Mass/volume] in Serum or Plasma [2345-7] 11/25/2024 04:49 PM 220 mg/dL N Blood chemistry[[id number]] Glucose [Mass/volume] in Serum or Plasma [2345-7] 11/25/2024 11:15 AM 259 mg/dL N Blood chemistry[[id number]] Glucose [Mass/volume] in Serum or Plasma [2345-7] 11/24/2024 01:57 PM 148 mg/dL N Blood chemistry[[id number]] Glucose [Mass/volume] in Serum or Plasma [2345-7] 11/24/2024 09:57 AM 192 mg/dL N Blood chemistry[[id number]] Glucose [Mass/volume] in Serum or Plasma [2345-7] 11/24/2024 04:39 PM 162 mg/dL N Blood chemistry[[id number]] Glucose [Mass/volume] in Serum or Plasma [2345-7] 11/24/2024 10:02 AM 213 mg/dL N Blood chemistry[[id number]] Glucose [Mass/volume] in Serum or Plasma [2345-7] 11/23/2024 03:59 PM 145 mg/dL N Blood chemistry[[id number]] Glucose [Mass/volume] in Serum or Plasma [2345-7] 11/23/2024 09:29 AM 187 mg/dL N Blood chemistry[[id number]] Glucose [Mass/volume] in Serum or Plasma [2345-7] 11/23/2024 04:42 PM 220 mg/dL N Blood chemistry[[id number]] Glucose [Mass/volume] in Serum or Plasma [2345-7] 11/23/2024 10:26 AM 186 mg/dL N Blood chemistry[[id number]] Glucose [Mass/volume] in Serum or Plasma [2345-7] 11/22/2024 05:43 PM 151 mg/dL N Blood chemistry[[id number]] Glucose [Mass/volume] in Serum or Plasma [2345-7] 11/22/2024 01:41 PM 150 mg/dL N Blood chemistry[[id number]] Glucose [Mass/volume] in Serum or Plasma [2345-7] 11/22/2024 09:51 AM 140 mg/dL N Blood chemistry[[id number]] Glucose [Mass/volume] in Serum or Plasma [2345-7] 11/22/2024 10:47 AM 230 mg/dL N Blood chemistry[[id number]] Glucose [Mass/volume] in Serum or Plasma [2345-7] 11/21/2024 04:52 PM 189 mg/dL N Blood chemistry[[id number]] Glucose [Mass/volume] in Serum or Plasma [2345-7] 11/21/2024 01:30 PM 160 mg/dL N Blood chemistry[[id number]] Glucose [Mass/volume] in Serum or Plasma [2345-7] 11/21/2024 09:06 AM 146 mg/dL N Blood chemistry[[id number]] Glucose [Mass/volume] in Serum or Plasma [2345-7] 11/21/2024 10:30 AM 217 mg/dL N Blood chemistry[[id number]] Glucose [Mass/volume] in Serum or Plasma [2345-7] 11/20/2024 03:59 PM 175 mg/dL N Blood chemistry[[id number]] Glucose [Mass/volume] in Serum or Plasma [2345-7] 11/20/2024 10:15 AM 204 mg/dL N Blood chemistry[[id number]] Glucose [Mass/volume] in Serum or Plasma [2345-7] 11/20/2024 04:48 PM 161 mg/dL N Blood chemistry[[id number]] Glucose [Mass/volume] in Serum or Plasma [2345-7] 11/20/2024 10:22 AM 222 mg/dL N Blood chemistry[[id number]] Glucose [Mass/volume] in Serum or Plasma [2345-7] 11/19/2024 04:03 PM 157 mg/dL N Blood chemistry[[id number]] Glucose [Mass/volume] in Serum or Plasma [2345-7] 11/19/2024 10:46 AM 134 mg/dL N Blood chemistry[[id number]] Glucose [Mass/volume] in Serum or Plasma [2345-7] 11/19/2024 05:36 PM 150 mg/dL N Blood chemistry[[id number]] Glucose [Mass/volume] in Serum or Plasma [2345-7] 11/19/2024 11:20 AM 237 mg/dL N Blood chemistry[[id number]] Glucose [Mass/volume] in Serum or Plasma [2345-7] 11/18/2024 05:55 PM 229 mg/dL N Blood chemistry[[id number]] Glucose [Mass/volume] in Serum or Plasma [2345-7] 11/18/2024 02:43 PM 172 mg/dL N Blood chemistry[[id number]] Glucose [Mass/volume] in Serum or Plasma [2345-7] 11/18/2024 09:49 AM 176 mg/dL N Blood chemistry[[id number]] Glucose [Mass/volume] in Serum or Plasma [2345-7] 11/18/2024 10:01 AM 141 mg/dL N Blood chemistry[[id number]] Glucose [Mass/volume] in Serum or Plasma [2345-7] 11/17/2024 03:17 PM 145 mg/dL N Blood chemistry[[id number]] Glucose [Mass/volume] in Serum or Plasma [2345-7] 11/17/2024 04:39 PM 143 mg/dL N Blood chemistry[[id number]] Glucose [Mass/volume] in Serum or Plasma [2345-7] 11/17/2024 08:12 AM 150 mg/dL N Blood chemistry[[id number]] Glucose [Mass/volume] in Serum or Plasma [2345-7] 11/17/2024 10:10 AM 136 mg/dL N Blood chemistry[[id number]] Glucose [Mass/volume] in Serum or Plasma [2345-7] 11/16/2024 03:29 PM 154 mg/dL N Blood chemistry[[id number]] Glucose [Mass/volume] in Serum or Plasma [2345-7] 11/16/2024 04:15 PM 150 mg/dL N Blood chemistry[[id number]] Glucose [Mass/volume] in Serum or Plasma [2345-7] 11/16/2024 09:05 AM 164 mg/dL N Blood chemistry[[id number]] Glucose [Mass/volume] in Serum or Plasma [2345-7] 11/16/2024 11:04 AM 113 mg/dL N Blood chemistry[[id number]] Glucose [Mass/volume] in Serum or Plasma [2345-7] 11/15/2024 02:31 PM 146 mg/dL N Blood chemistry[[id number]] Glucose [Mass/volume] in Serum or Plasma [2345-7] 11/15/2024 04:44 PM 153 mg/dL N Blood chemistry[[id number]] Glucose [Mass/volume] in Serum or Plasma [2345-7] 11/15/2024 09:57 AM 156 mg/dL N Blood chemistry[[id number]] Glucose [Mass/volume] in Serum or Plasma [2345-7] 11/15/2024 10:07 AM 132 mg/dL N Blood chemistry[[id number]] Glucose [Mass/volume] in Serum or Plasma [2345-7] 11/14/2024 05:47 PM 142 mg/dL N Blood chemistry[[id number]] Glucose [Mass/volume] in Serum or Plasma [2345-7] 11/14/2024 04:27 PM 167 mg/dL N Blood chemistry[[id number]] Glucose [Mass/volume] in Serum or Plasma [2345-7] 11/14/2024 10:06 AM 134 mg/dL N Blood chemistry[[id number]] Glucose [Mass/volume] in Serum or Plasma [2345-7] 11/14/2024 08:53 AM 192 mg/dL N Blood chemistry[[id number]] Glucose [Mass/volume] in Serum or Plasma [2345-7] 11/13/2024 02:33 PM 170 mg/dL N Blood chemistry[[id number]] Glucose [Mass/volume] in Serum or Plasma [2345-7] 11/13/2024 09:21 AM 175 mg/dL N Blood chemistry[[id number]] Glucose [Mass/volume] in Serum or Plasma [2345-7] 11/13/2024 04:17 PM 153 mg/dL N Blood chemistry[[id number]] Glucose [Mass/volume] in Serum or Plasma [2345-7] 11/13/2024 10:53 AM 144 mg/dL N Blood chemistry[[id number]] Glucose [Mass/volume] in Serum or Plasma [2345-7] 11/12/2024 11:55 AM 152 mg/dL N Blood chemistry[[id number]] Glucose [Mass/volume] in Serum or Plasma [2345-7] 11/12/2024 04:42 PM 197 mg/dL N Blood chemistry[[id number]] Glucose [Mass/volume] in Serum or Plasma [2345-7] 11/12/2024 09:23 AM 156 mg/dL N Blood chemistry[[id number]] Glucose [Mass/volume] in Serum or Plasma [2345-7] 11/12/2024 10:03 AM 128 mg/dL N Blood chemistry[[id number]] Glucose [Mass/volume] in Serum or Plasma [2345-7] 11/12/2024 06:08 AM 158 mg/dL N Blood chemistry[[id number]] Glucose [Mass/volume] in Serum or Plasma [2345-7] 11/11/2024 04:24 PM 131 mg/dL N Blood chemistry[[id number]] Glucose [Mass/volume] in Serum or Plasma [2345-7] 11/11/2024 10:09 AM 146 mg/dL N Blood chemistry[[id number]] Glucose [Mass/volume] in Serum or Plasma [2345-7] 11/11/2024 11:17 AM 131 mg/dL N Blood chemistry[[id number]] Glucose [Mass/volume] in Serum or Plasma [2345-7] 11/10/2024 09:48 AM 245 mg/dL N Blood chemistry[[id number]] Glucose [Mass/volume] in Serum or Plasma [2345-7] 11/10/2024 04:20 PM 185 mg/dL N Blood chemistry[[id number]] Glucose [Mass/volume] in Serum or Plasma [2345-7] 11/10/2024 10:13 AM 170 mg/dL N Blood chemistry[[id number]] Glucose [Mass/volume] in Serum or Plasma [2345-7] 11/09/2024 03:50 PM 154 mg/dL N Blood chemistry[[id number]] Glucose [Mass/volume] in Serum or Plasma [2345-7] 11/09/2024 10:37 AM 167 mg/dL N Blood chemistry[[id number]] Glucose [Mass/volume] in Serum or Plasma [2345-7] 11/09/2024 02:22 PM 156 mg/dL N Blood chemistry[[id number]] Glucose [Mass/volume] in Serum or Plasma [2345-7] 11/09/2024 10:28 AM 134 mg/dL N Blood chemistry[[id number]] Glucose [Mass/volume] in Serum or Plasma [2345-7] 11/08/2024 04:58 PM 108 mg/dL N Blood chemistry[[id number]] Glucose [Mass/volume] in Serum or Plasma [2345-7] 11/08/2024 02:42 PM 145 mg/dL N Blood chemistry[[id number]] Glucose [Mass/volume] in Serum or Plasma [2345-7] 11/08/2024 09:56 AM 186 mg/dL N Blood chemistry[[id number]] Glucose [Mass/volume] in Serum or Plasma [2345-7] 11/08/2024 10:39 AM 142 mg/dL N Blood chemistry[[id number]] Glucose [Mass/volume] in Serum or Plasma [2345-7] 11/07/2024 04:44 PM 142 mg/dL N Blood chemistry[[id number]] Glucose [Mass/volume] in Serum or Plasma [2345-7] 11/07/2024 01:30 PM 146 mg/dL N Blood chemistry[[id number]] Glucose [Mass/volume] in Serum or Plasma [2345-7] 11/07/2024 10:05 AM 136 mg/dL N Blood chemistry[[id number]] Glucose [Mass/volume] in Serum or Plasma [2345-7] 11/07/2024 10:22 AM 132 mg/dL N Blood chemistry[[id number]] Glucose [Mass/volume] in Serum or Plasma [2345-7] 11/06/2024 03:40 PM 157 mg/dL N Blood chemistry[[id number]] Glucose [Mass/volume] in Serum or Plasma [2345-7] 11/06/2024 10:23 AM 145 mg/dL N Blood chemistry[[id number]] Glucose [Mass/volume] in Serum or Plasma [2345-7] 11/06/2024 04:47 PM 171 mg/dL N Blood chemistry[[id number]] Glucose [Mass/volume] in Serum or Plasma [2345-7] 11/06/2024 10:35 AM 159 mg/dL N Blood chemistry[[id number]] Glucose [Mass/volume] in Serum or Plasma [2345-7] 11/05/2024 03:08 PM 164 mg/dL N Blood chemistry[[id number]] Glucose [Mass/volume] in Serum or Plasma [2345-7] 11/05/2024 09:45 AM 204 mg/dL N Blood chemistry[[id number]] Glucose [Mass/volume] in Serum or Plasma [2345-7] 11/05/2024 04:27 PM 182 mg/dL N Blood chemistry[[id number]] Glucose [Mass/volume] in Serum or Plasma [2345-7] 11/05/2024 11:18 AM 127 mg/dL N Blood chemistry[[id number]] Glucose [Mass/volume] in Serum or Plasma [2345-7] 11/04/2024 11:32 AM 158 mg/dL N Blood chemistry[[id number]] Glucose [Mass/volume] in Serum or Plasma [2345-7] 11/04/2024 08:43 AM 152 mg/dL N Blood chemistry[[id number]] Glucose [Mass/volume] in Serum or Plasma [2345-7] 11/04/2024 04:16 PM 141 mg/dL N Blood chemistry[[id number]] Glucose [Mass/volume] in Serum or Plasma [5-7] 11/04/2024 11:26 AM 139 mg/dL N Blood chemistry[[id number]] Glucose [Mass/volume] in Serum or Plasma [5-7] 11/03/2024 02:49 PM 172 mg/dL N Blood chemistry[[id number]] Glucose [Mass/volume] in Serum or Plasma [2345-7] 11/03/2024 04:37 PM 241 mg/dL N Blood chemistry[[id number]] Glucose [Mass/volume] in Serum or Plasma [2345-7] 11/03/2024 08:56 AM 138 mg/dL N Blood chemistry[[id number]] Glucose [Mass/volume] in Serum or Plasma [2345-7] 11/03/2024 11:28 AM 133 mg/dL N Blood chemistry[[id number]] Glucose [Mass/volume] in Serum or Plasma [2345-7] 11/02/2024 03:07 PM 167 mg/dL N Blood chemistry[[id number]] Glucose [Mass/volume] in Serum or Plasma [2345-7] 11/02/2024 04:23 PM 152 mg/dL N Blood chemistry[[id number]] Glucose [Mass/volume] in Serum or Plasma [2345-7] 11/02/2024 11:48 AM 137 mg/dL N Blood chemistry[[id number]] Glucose [Mass/volume] in Serum or Plasma [2345-7] 11/02/2024 10:50 AM 133 mg/dL N Blood chemistry[[id number]] Glucose [Mass/volume] in Serum or Plasma [2345-7] 11/01/2024 04:51 PM 144 mg/dL N Blood chemistry[[id number]] Glucose [Mass/volume] in Serum or Plasma [2345-7] 11/01/2024 03:25 PM 136 mg/dL N Blood chemistry[[id number]] Glucose [Mass/volume] in Serum or Plasma [2345-7] 11/01/2024 11:40 AM 165 mg/dL N Blood chemistry[[id number]] Glucose [Mass/volume] in Serum or Plasma [2345-7] 11/01/2024 10:51 AM 118 mg/dL N Blood chemistry[[id number]] Glucose [Mass/volume] in Serum or Plasma [2345-7] 10/31/2024 04:31 PM 126 mg/dL N Blood chemistry[[id number]] Glucose [Mass/volume] in Serum or Plasma [2345-7] 10/31/2024 04:19 PM 183 mg/dL N Blood chemistry[[id number]] Glucose [Mass/volume] in Serum or Plasma [2345-7] 10/31/2024 09:06 AM 165 mg/dL N Blood chemistry[[id number]] Glucose [Mass/volume] in Serum or Plasma [2345-7] 10/31/2024 10:52 AM 130 mg/dL N Blood chemistry[[id number]] Glucose [Mass/volume] in Serum or Plasma [2345-7] 10/30/2024 11:59 AM 212 mg/dL N Blood chemistry[[id number]] Glucose [Mass/volume] in Serum or Plasma [2345-7] 10/30/2024 10:07 AM 162 mg/dL N COVID-19 Test Viral Antigen null flavor [null] 10/30/2024 05:00 PM See note NEG COVID-19 Test Viral Antigen Blood chemistry[[id number]] Glucose [Mass/volume] in Serum or Plasma [2345-7] 10/30/2024 04:33 PM 134 mg/dL N Blood chemistry[[id number]] Glucose [Mass/volume] in Serum or Plasma [2345-7] 10/30/2024 10:51 AM 138 mg/dL N Blood chemistry[[id number]] Glucose [Mass/volume] in Serum or Plasma [2345-7] 10/29/2024 11:56 AM 163 mg/dL N Blood chemistry[[id number]] Glucose [Mass/volume] in Serum or Plasma [2345-7] 10/29/2024 09:29 AM 169 mg/dL N Blood chemistry[[id number]] Glucose [Mass/volume] in Serum or Plasma [2345-7] 10/29/2024 05:39 PM 145 mg/dL N Blood chemistry[[id number]] Glucose [Mass/volume] in Serum or Plasma [2345-7] 10/29/2024 04:50 PM 130 mg/dL N Blood chemistry[[id number]] Glucose [Mass/volume] in Serum or Plasma [2345-7] 10/29/2024 11:01 AM 160 mg/dL N Blood chemistry[[id number]] Glucose [Mass/volume] in Serum or Plasma [2345-7] 10/28/2024 09:43 AM 146 mg/dL N Blood chemistry[[id number]] Glucose [Mass/volume] in Serum or Plasma [2345-7] 10/28/2024 04:17 PM 167 mg/dL N COVID-19 Test Antibody IgG null flavor [null] 10/28/2024 02:30 PM See note NEG COVID-19 Test Antibody IgG Blood chemistry[[id number]] Glucose [Mass/volume] in Serum or Plasma [2345-7] 10/28/2024 10:40 AM 172 mg/dL N Blood chemistry[[id number]] Glucose [Mass/volume] in Serum or Plasma [2345-7] 10/27/2024 03:31 PM 214 mg/dL N COVID-19 Test Antibody IgG null flavor [null] 10/27/2024 02:53 PM See note NEG COVID-19 Test Antibody IgG Blood chemistry[[id number]] Glucose [Mass/volume] in Serum or Plasma [2345-7] 10/27/2024 09:38 AM 184 mg/dL N Blood chemistry[[id number]] Glucose [Mass/volume] in Serum or Plasma [2345-7] 10/27/2024 05:35 PM 179 mg/dL N Blood chemistry[[id number]] Glucose [Mass/volume] in Serum or Plasma [2345-7] 10/27/2024 11:11 AM 144 mg/dL N COVID-19 Test Viral Antigen null flavor [null] 10/26/2024 05:00 PM See note NEG COVID-19 Test Viral Antigen Blood chemistry[[id number]] Glucose [Mass/volume] in Serum or Plasma [2345-7] 10/26/2024 04:48 PM 152 mg/dL N Blood chemistry[[id number]] Glucose [Mass/volume] in Serum or Plasma [2345-7] 10/26/2024 03:07 PM 181 mg/dL N Blood chemistry[[id number]] Glucose [Mass/volume] in Serum or Plasma [2345-7] 10/26/2024 09:06 AM 154 mg/dL N Blood chemistry[[id number]] Glucose [Mass/volume] in Serum or Plasma [2345-7] 10/26/2024 10:40 AM 150 mg/dL N Blood chemistry[[id number]] Glucose [Mass/volume] in Serum or Plasma [2345-7] 10/25/2024 04:50 PM 194 mg/dL N Blood chemistry[[id number]] Glucose [Mass/volume] in Serum or Plasma [2345-7] 10/25/2024 01:50 PM 138 mg/dL N Blood chemistry[[id number]] Glucose [Mass/volume] in Serum or Plasma [2345-7] 10/25/2024 08:21 AM 204 mg/dL N Blood chemistry[[id number]] Glucose [Mass/volume] in Serum or Plasma [2345-7] 10/25/2024 10:48 AM 169 mg/dL N Blood chemistry[[id number]] Glucose [Mass/volume] in Serum or Plasma [2345-7] 10/24/2024 02:38 PM 189 mg/dL N Blood chemistry[[id number]] Glucose [Mass/volume] in Serum or Plasma [2345-7] 10/24/2024 10:14 AM 176 mg/dL N Blood chemistry[[id number]] Glucose [Mass/volume] in Serum or Plasma [2345-7] 10/24/2024 04:35 PM 159 mg/dL N Blood chemistry[[id number]] Glucose [Mass/volume] in Serum or Plasma [2345-7] 10/24/2024 10:16 AM 160 mg/dL N Blood chemistry[[id number]] Glucose [Mass/volume] in Serum or Plasma [2345-7] 10/23/2024 02:43 PM 201 mg/dL N Blood chemistry[[id number]] Glucose [Mass/volume] in Serum or Plasma [2345-7] 10/23/2024 08:51 AM 174 mg/dL N Blood chemistry[[id number]] Glucose [Mass/volume] in Serum or Plasma [2345-7] 10/23/2024 05:45 PM 214 mg/dL N Blood chemistry[[id number]] Glucose [Mass/volume] in Serum or Plasma [2345-7] 10/23/2024 10:41 AM 145 mg/dL N Blood chemistry[[id number]] Glucose [Mass/volume] in Serum or Plasma [2345-7] 10/22/2024 03:35 PM 210 mg/dL N Blood chemistry[[id number]] Glucose [Mass/volume] in Serum or Plasma [2345-7] 10/22/2024 09:34 AM 167 mg/dL N Blood chemistry[[id number]] Glucose [Mass/volume] in Serum or Plasma [2345-7] 10/22/2024 04:47 PM 209 mg/dL N Blood chemistry[[id number]] Glucose [Mass/volume] in Serum or Plasma [2345-7] 10/22/2024 11:24 AM 158 mg/dL N Blood chemistry[[id number]] Glucose [Mass/volume] in Serum or Plasma [2345-7] 10/21/2024 05:13 PM 150 mg/dL N Blood chemistry[[id number]] Glucose [Mass/volume] in Serum or Plasma [2345-7] 10/21/2024 12:08 PM 150 mg/dL N Blood chemistry[[id number]] Glucose [Mass/volume] in Serum or Plasma [2345-7] 10/21/2024 08:52 AM 185 mg/dL N Blood chemistry[[id number]] Glucose [Mass/volume] in Serum or Plasma [2345-7] 10/21/2024 11:38 AM 165 mg/dL N Blood chemistry[[id number]] Glucose [Mass/volume] in Serum or Plasma [2345-7] 10/20/2024 02:15 PM 160 mg/dL N Blood chemistry[[id number]] Glucose [Mass/volume] in Serum or Plasma [2345-7] 10/20/2024 04:30 PM 192 mg/dL N Blood chemistry[[id number]] Glucose [Mass/volume] in Serum or Plasma [2345-7] 10/20/2024 10:41 AM 135 mg/dL N Glucose [Mass/volume] in Serum or Plasma [2345-7] 10/20/2024 10:41 AM 150 mg/dL N Blood chemistry[[id number]] Glucose [Mass/volume] in Serum or Plasma [2345-7] 10/19/2024 04:26 PM 184 mg/dL N Blood chemistry[[id number]] Glucose [Mass/volume] in Serum or Plasma [2345-7] 10/19/2024 12:06 PM 159 mg/dL N Blood chemistry[[id number]] Glucose [Mass/volume] in Serum or Plasma [2345-7] 10/19/2024 10:18 AM 194 mg/dL N Blood chemistry[[id number]] Glucose [Mass/volume] in Serum or Plasma [2345-7] 10/19/2024 07:54 AM 140 mg/dL N Blood chemistry[[id number]] Glucose [Mass/volume] in Serum or Plasma [2345-7] 10/18/2024 02:18 PM 205 mg/dL N Blood chemistry[[id number]] Glucose [Mass/volume] in Serum or Plasma [2345-7] 10/18/2024 11:03 AM 184 mg/dL N Blood chemistry[[id number]] Glucose [Mass/volume] in Serum or Plasma [2345-7] 10/18/2024 04:49 PM 182 mg/dL N Blood chemistry[[id number]] Glucose [Mass/volume] in Serum or Plasma [2345-7] 10/18/2024 10:21 AM 179 mg/dL N Blood chemistry[[id number]] Glucose [Mass/volume] in Serum or Plasma [2345-7] 10/17/2024 04:25 PM 202 mg/dL N Blood chemistry[[id number]] Glucose [Mass/volume] in Serum or Plasma [2345-7] 10/17/2024 03:26 PM 174 mg/dL N Blood chemistry[[id number]] Glucose [Mass/volume] in Serum or Plasma [2345-7] 10/17/2024 10:33 AM 184 mg/dL N Blood chemistry[[id number]] Glucose [Mass/volume] in Serum or Plasma [2345-7] 10/17/2024 10:47 AM 174 mg/dL N Blood chemistry[[id number]] Glucose [Mass/volume] in Serum or Plasma [2345-7] 10/16/2024 01:36 PM 192 mg/dL N Blood chemistry[[id number]] Glucose [Mass/volume] in Serum or Plasma [2345-7] 10/16/2024 09:39 AM 193 mg/dL N Blood chemistry[[id number]] Glucose [Mass/volume] in Serum or Plasma [2345-7] 10/16/2024 05:07 PM 159 mg/dL N Blood chemistry[[id number]] Glucose [Mass/volume] in Serum or Plasma [2345-7] 10/16/2024 11:15 AM 142 mg/dL N Blood chemistry[[id number]] Glucose [Mass/volume] in Serum or Plasma [2345-7] 10/15/2024 02:09 PM 139 mg/dL N Blood chemistry[[id number]] Glucose [Mass/volume] in Serum or Plasma [2345-7] 10/15/2024 09:59 AM 169 mg/dL N Blood chemistry[[id number]] Glucose [Mass/volume] in Serum or Plasma [2345-7] 10/15/2024 04:55 PM 153 mg/dL N Blood chemistry[[id number]] Glucose [Mass/volume] in Serum or Plasma [2345-7] 10/15/2024 11:28 AM 146 mg/dL N Blood chemistry[[id number]] Glucose [Mass/volume] in Serum or Plasma [2345-7] 10/14/2024 04:01 PM 184 mg/dL N Blood chemistry[[id number]] Glucose [Mass/volume] in Serum or Plasma [2345-7] 10/14/2024 04:36 PM 212 mg/dL N Blood chemistry[[id number]] Glucose [Mass/volume] in Serum or Plasma [2345-7] 10/14/2024 10:54 AM 226 mg/dL N Blood chemistry[[id number]] Glucose [Mass/volume] in Serum or Plasma [2345-7] 10/13/2024 04:29 PM 184 mg/dL N Blood chemistry[[id number]] Glucose [Mass/volume] in Serum or Plasma [2345-7] 10/13/2024 03:11 PM 191 mg/dL N Blood chemistry[[id number]] Glucose [Mass/volume] in Serum or Plasma [2345-7] 10/13/2024 11:01 AM 166 mg/dL N Blood chemistry[[id number]] Glucose [Mass/volume] in Serum or Plasma [2345-7] 10/13/2024 10:59 AM 177 mg/dL N Blood chemistry[[id number]] Glucose [Mass/volume] in Serum or Plasma [2345-7] 10/12/2024 05:49 PM 189 mg/dL N Blood chemistry[[id number]] Glucose [Mass/volume] in Serum or Plasma [2345-7] 10/12/2024 02:10 PM 176 mg/dL N Blood chemistry[[id number]] Glucose [Mass/volume] in Serum or Plasma [2345-7] 10/12/2024 09:48 AM 192 mg/dL N Blood chemistry[[id number]] Glucose [Mass/volume] in Serum or Plasma [2345-7] 10/12/2024 11:31 AM 146 mg/dL N Blood chemistry[[id number]] Glucose [Mass/volume] in Serum or Plasma [2345-7] 10/11/2024 03:44 PM 171 mg/dL N Blood chemistry[[id number]] Glucose [Mass/volume] in Serum or Plasma [2345-7] 10/11/2024 09:59 AM 184 mg/dL N Blood chemistry[[id number]] Glucose [Mass/volume] in Serum or Plasma [2345-7] 10/11/2024 05:16 PM 210 mg/dL N Blood chemistry[[id number]] Glucose [Mass/volume] in Serum or Plasma [2345-7] 10/11/2024 11:10 AM 174 mg/dL N Blood chemistry[[id number]] Glucose [Mass/volume] in Serum or Plasma [2345-7] 10/10/2024 03:00 PM 198 mg/dL N Blood chemistry[[id number]] Glucose [Mass/volume] in Serum or Plasma [2345-7] 10/10/2024 09:58 AM 206 mg/dL N Blood chemistry[[id number]] Glucose [Mass/volume] in Serum or Plasma [2345-7] 10/10/2024 04:45 PM 198 mg/dL N Blood chemistry[[id number]] Glucose [Mass/volume] in Serum or Plasma [2345-7] 10/10/2024 11:35 AM 148 mg/dL N Blood chemistry[[id number]] Glucose [Mass/volume] in Serum or Plasma [2345-7] 10/09/2024 04:20 PM 187 mg/dL N Blood chemistry[[id number]] Glucose [Mass/volume] in Serum or Plasma [2345-7] 10/09/2024 04:35 PM 228 mg/dL N Blood chemistry[[id number]] Glucose [Mass/volume] in Serum or Plasma [2345-7] 10/09/2024 10:33 AM 159 mg/dL N Blood chemistry[[id number]] Glucose [Mass/volume] in Serum or Plasma [2345-7] 10/08/2024 04:13 PM 164 mg/dL N Blood chemistry[[id number]] Glucose [Mass/volume] in Serum or Plasma [2345-7] 10/08/2024 04:36 PM 204 mg/dL N Blood chemistry[[id number]] Glucose [Mass/volume] in Serum or Plasma [2345-7] 10/08/2024 10:44 AM 150 mg/dL N Blood chemistry[[id number]] Glucose [Mass/volume] in Serum or Plasma [2345-7] 10/07/2024 11:47 AM 197 mg/dL N Blood chemistry[[id number]] Glucose [Mass/volume] in Serum or Plasma [2345-7] 10/07/2024 08:45 AM 211 mg/dL N Blood chemistry[[id number]] Glucose [Mass/volume] in Serum or Plasma [2345-7] 10/07/2024 04:25 PM 222 mg/dL N Blood chemistry[[id number]] Glucose [Mass/volume] in Serum or Plasma [2345-7] 10/07/2024 11:17 AM 194 mg/dL N Blood chemistry[[id number]] Glucose [Mass/volume] in Serum or Plasma [2345-7] 10/06/2024 12:05 PM 180 mg/dL N Blood chemistry[[id number]] Glucose [Mass/volume] in Serum or Plasma [2345-7] 10/06/2024 12:02 PM 185 mg/dL N Blood chemistry[[id number]] Glucose [Mass/volume] in Serum or Plasma [2345-7] 10/06/2024 04:25 PM 203 mg/dL N Blood chemistry[[id number]] Glucose [Mass/volume] in Serum or Plasma [2345-7] 10/06/2024 10:17 AM 186 mg/dL N Blood chemistry[[id number]] Glucose [Mass/volume] in Serum or Plasma [2345-7] 10/05/2024 04:27 PM 154 mg/dL N Blood chemistry[[id number]] Glucose [Mass/volume] in Serum or Plasma [2345-7] 10/05/2024 08:49 AM 179 mg/dL N Blood chemistry[[id number]] Glucose [Mass/volume] in Serum or Plasma [2345-7] 10/05/2024 04:35 PM 204 mg/dL N Blood chemistry[[id number]] Glucose [Mass/volume] in Serum or Plasma [2345-7] 10/05/2024 11:16 AM 194 mg/dL N Blood chemistry[[id number]] Glucose [Mass/volume] in Serum or Plasma [2345-7] 10/04/2024 02:47 PM 187 mg/dL N Blood chemistry[[id number]] Glucose [Mass/volume] in Serum or Plasma [2345-7] 10/04/2024 10:07 AM 204 mg/dL N Blood chemistry[[id number]] Glucose [Mass/volume] in Serum or Plasma [2345-7] 10/04/2024 04:50 PM 255 mg/dL N Blood chemistry[[id number]] Glucose [Mass/volume] in Serum or Plasma [2345-7] 10/04/2024 10:52 AM 199 mg/dL N Blood chemistry[[id number]] Glucose [Mass/volume] in Serum or Plasma [2345-7] 10/03/2024 03:55 PM 210 mg/dL N Blood chemistry[[id number]] Glucose [Mass/volume] in Serum or Plasma [2345-7] 10/03/2024 04:26 PM 208 mg/dL N Blood chemistry[[id number]] Glucose [Mass/volume] in Serum or Plasma [2345-7] 10/03/2024 10:06 AM 184 mg/dL N Blood chemistry[[id number]] Glucose [Mass/volume] in Serum or Plasma [2345-7] 10/03/2024 08:58 AM 155 mg/dL N Blood chemistry[[id number]] Glucose [Mass/volume] in Serum or Plasma [2345-7] 10/02/2024 02:22 PM 179 mg/dL N Blood chemistry[[id number]] Glucose [Mass/volume] in Serum or Plasma [2345-7] 10/02/2024 09:34 AM 229 mg/dL N Blood chemistry[[id number]] Glucose [Mass/volume] in Serum or Plasma [2345-7] 10/02/2024 05:43 PM 273 mg/dL N Blood chemistry[[id number]] Glucose [Mass/volume] in Serum or Plasma [2345-7] 10/02/2024 11:03 AM 149 mg/dL N Blood chemistry[[id number]] Glucose [Mass/volume] in Serum or Plasma [2345-7] 10/01/2024 05:35 PM 285 mg/dL N Blood chemistry[[id number]] Glucose [Mass/volume] in Serum or Plasma [2345-7] 10/01/2024 02:30 PM 176 mg/dL N Blood chemistry[[id number]] Glucose [Mass/volume] in Serum or Plasma [2345-7] 10/01/2024 09:49 AM 156 mg/dL N Blood chemistry[[id number]] Glucose [Mass/volume] in Serum or Plasma [2345-7] 10/01/2024 11:21 AM 283 mg/dL N Blood chemistry[[id number]] Glucose [Mass/volume] in Serum or Plasma [2345-7] 09/30/2024 04:01 PM 155 mg/dL N Blood chemistry[[id number]] Glucose [Mass/volume] in Serum or Plasma [2345-7] 09/30/2024 09:19 AM 176 mg/dL N Blood chemistry[[id number]] Glucose [Mass/volume] in Serum or Plasma [2345-7] 09/30/2024 05:10 PM 251 mg/dL N Blood chemistry[[id number]] Glucose [Mass/volume] in Serum or Plasma [2345-7] 09/30/2024 10:29 AM 185 mg/dL N Blood chemistry[[id number]] Glucose [Mass/volume] in Serum or Plasma [2345-7] 09/29/2024 04:07 PM 137 mg/dL N Blood chemistry[[id number]] Glucose [Mass/volume] in Serum or Plasma [2345-7] 09/29/2024 09:02 AM 146 mg/dL N Blood chemistry[[id number]] Glucose [Mass/volume] in Serum or Plasma [2345-7] 09/29/2024 04:27 PM 204 mg/dL N Blood chemistry[[id number]] Glucose [Mass/volume] in Serum or Plasma [2345-7] 09/29/2024 10:19 AM 215 mg/dL N Blood chemistry[[id number]] Glucose [Mass/volume] in Serum or Plasma [2345-7] 09/28/2024 04:12 PM 145 mg/dL N Blood chemistry[[id number]] Glucose [Mass/volume] in Serum or Plasma [2345-7] 09/28/2024 10:52 AM 167 mg/dL N Blood chemistry[[id number]] Glucose [Mass/volume] in Serum or Plasma [2345-7] 09/27/2024 05:11 PM 237 mg/dL N Blood chemistry[[id number]] Glucose [Mass/volume] in Serum or Plasma [2345-7] 09/27/2024 10:08 AM 222 mg/dL N Blood chemistry[[id number]] Glucose [Mass/volume] in Serum or Plasma [2345-7] 09/27/2024 10:42 AM 187 mg/dL N Blood chemistry[[id number]] Glucose [Mass/volume] in Serum or Plasma [2345-7] 09/26/2024 02:24 PM 190 mg/dL N Blood chemistry[[id number]] Glucose [Mass/volume] in Serum or Plasma [2345-7] 09/26/2024 09:59 AM 211 mg/dL N Blood chemistry[[id number]] Glucose [Mass/volume] in Serum or Plasma [2345-7] 09/26/2024 07:25 AM 183 mg/dL N Blood chemistry[[id number]] Glucose [Mass/volume] in Serum or Plasma [2345-7] 09/26/2024 10:42 AM 171 mg/dL N Blood chemistry[[id number]] Glucose [Mass/volume] in Serum or Plasma [2345-7] 09/25/2024 03:22 PM 151 mg/dL N Blood chemistry[[id number]] Glucose [Mass/volume] in Serum or Plasma [2345-7] 09/25/2024 04:38 PM 204 mg/dL N Blood chemistry[[id number]] Glucose [Mass/volume] in Serum or Plasma [2345-7] 09/25/2024 11:55 AM 168 mg/dL N Blood chemistry[[id number]] Glucose [Mass/volume] in Serum or Plasma [2345-7] 09/25/2024 10:17 AM 181 mg/dL N Blood chemistry[[id number]] Glucose [Mass/volume] in Serum or Plasma [2345-7] 09/24/2024 04:34 PM 197 mg/dL N Blood chemistry[[id number]] Glucose [Mass/volume] in Serum or Plasma [2345-7] 09/24/2024 02:36 PM 154 mg/dL N Blood chemistry[[id number]] Glucose [Mass/volume] in Serum or Plasma [2345-7] 09/24/2024 09:21 AM 147 mg/dL N Blood chemistry[[id number]] Glucose [Mass/volume] in Serum or Plasma [2345-7] 09/24/2024 10:27 AM 129 mg/dL N Blood chemistry[[id number]] Glucose [Mass/volume] in Serum or Plasma [2345-7] 09/23/2024 05:23 PM 162 mg/dL N Blood chemistry[[id number]] Glucose [Mass/volume] in Serum or Plasma [2345-7] 09/23/2024 02:07 PM 143 mg/dL N Blood chemistry[[id number]] Glucose [Mass/volume] in Serum or Plasma [2345-7] 09/23/2024 09:46 AM 194 mg/dL N Blood chemistry[[id number]] Glucose [Mass/volume] in Serum or Plasma [2345-7] 09/23/2024 11:26 AM 152 mg/dL N Blood chemistry[[id number]] Glucose [Mass/volume] in Serum or Plasma [2345-7] 09/22/2024 02:09 PM 186 mg/dL N Blood chemistry[[id number]] Glucose [Mass/volume] in Serum or Plasma [2345-7] 09/22/2024 04:46 PM 182 mg/dL N Blood chemistry[[id number]] Glucose [Mass/volume] in Serum or Plasma [2345-7] 09/22/2024 09:40 AM 185 mg/dL N Blood chemistry[[id number]] Glucose [Mass/volume] in Serum or Plasma [2345-7] 09/22/2024 10:12 AM 185 mg/dL N Blood chemistry[[id number]] Glucose [Mass/volume] in Serum or Plasma [2345-7] 09/21/2024 03:26 PM 184 mg/dL N Blood chemistry[[id number]] Glucose [Mass/volume] in Serum or Plasma [2345-7] 09/21/2024 05:58 PM 178 mg/dL N Blood chemistry[[id number]] Glucose [Mass/volume] in Serum or Plasma [2345-7] 09/21/2024 10:22 AM 158 mg/dL N Blood chemistry[[id number]] Glucose [Mass/volume] in Serum or Plasma [2345-7] 09/21/2024 11:06 AM 172 mg/dL N Blood chemistry[[id number]] Glucose [Mass/volume] in Serum or Plasma [2345-7] 09/20/2024 04:32 PM 222 mg/dL N Blood chemistry[[id number]] Glucose [Mass/volume] in Serum or Plasma [2345-7] 09/20/2024 02:06 PM 176 mg/dL N Blood chemistry[[id number]] Glucose [Mass/volume] in Serum or Plasma [2345-7] 09/20/2024 10:17 AM 154 mg/dL N Blood chemistry[[id number]] Glucose [Mass/volume] in Serum or Plasma [2345-7] 09/20/2024 09:29 AM 201 mg/dL N Blood chemistry[[id number]] Glucose [Mass/volume] in Serum or Plasma [2345-7] 09/19/2024 04:23 PM 237 mg/dL N Blood chemistry[[id number]] Glucose [Mass/volume] in Serum or Plasma [2345-7] 09/19/2024 02:59 PM 144 mg/dL N Blood chemistry[[id number]] Glucose [Mass/volume] in Serum or Plasma [2345-7] 09/19/2024 11:02 AM 167 mg/dL N Blood chemistry[[id number]] Glucose [Mass/volume] in Serum or Plasma [2345-7] 09/19/2024 09:28 AM 176 mg/dL N Blood chemistry[[id number]] Glucose [Mass/volume] in Serum or Plasma [2345-7] 09/18/2024 05:06 PM 187 mg/dL N Blood chemistry[[id number]] Glucose [Mass/volume] in Serum or Plasma [2345-7] 09/18/2024 02:00 PM 137 mg/dL N Blood chemistry[[id number]] Glucose [Mass/volume] in Serum or Plasma [2345-7] 09/18/2024 11:14 AM 182 mg/dL N Blood chemistry[[id number]] Glucose [Mass/volume] in Serum or Plasma [2345-7] 09/18/2024 09:41 AM 186 mg/dL N Blood chemistry[[id number]] Glucose [Mass/volume] in Serum or Plasma [2345-7] 09/17/2024 05:33 PM 262 mg/dL N Blood chemistry[[id number]] Glucose [Mass/volume] in Serum or Plasma [2345-7] 09/17/2024 01:43 PM 157 mg/dL N Blood chemistry[[id number]] Glucose [Mass/volume] in Serum or Plasma [2345-7] 09/17/2024 10:05 AM 229 mg/dL N Blood chemistry[[id number]] Glucose [Mass/volume] in Serum or Plasma [2345-7] 09/17/2024 09:59 AM 210 mg/dL N Blood chemistry[[id number]] Glucose [Mass/volume] in Serum or Plasma [2345-7] 09/16/2024 04:25 PM 202 mg/dL N Blood chemistry[[id number]] Glucose [Mass/volume] in Serum or Plasma [2345-7] 09/16/2024 02:34 PM 187 mg/dL N Blood chemistry[[id number]] Glucose [Mass/volume] in Serum or Plasma [2345-7] 09/16/2024 10:04 AM 182 mg/dL N Blood chemistry[[id number]] Glucose [Mass/volume] in Serum or Plasma [2345-7] 09/16/2024 09:26 AM 146 mg/dL N Blood chemistry[[id number]] Glucose [Mass/volume] in Serum or Plasma [2345-7] 09/15/2024 04:50 PM 201 mg/dL N Blood chemistry[[id number]] Glucose [Mass/volume] in Serum or Plasma [2345-7] 09/15/2024 10:39 AM 188 mg/dL N Blood chemistry[[id number]] Glucose [Mass/volume] in Serum or Plasma [2345-7] 09/15/2024 10:15 AM 189 mg/dL N Blood chemistry[[id number]] Glucose [Mass/volume] in Serum or Plasma [2345-7] 09/14/2024 04:03 PM 165 mg/dL N Blood chemistry[[id number]] Glucose [Mass/volume] in Serum or Plasma [2345-7] 09/14/2024 03:45 PM 184 mg/dL N Blood chemistry[[id number]] Glucose [Mass/volume] in Serum or Plasma [2345-7] 09/14/2024 10:35 AM 188 mg/dL N Blood chemistry[[id number]] Glucose [Mass/volume] in Serum or Plasma [2345-7] 09/14/2024 10:34 AM 159 mg/dL N Blood chemistry[[id number]] Glucose [Mass/volume] in Serum or Plasma [2345-7] 09/13/2024 04:35 PM 216 mg/dL N Blood chemistry[[id number]] Glucose [Mass/volume] in Serum or Plasma [2345-7] 09/13/2024 01:41 PM 193 mg/dL N Blood chemistry[[id number]] Glucose [Mass/volume] in Serum or Plasma [2345-7] 09/13/2024 10:52 AM 166 mg/dL N Blood chemistry[[id number]] Glucose [Mass/volume] in Serum or Plasma [2345-7] 09/13/2024 09:43 AM 186 mg/dL N Blood chemistry[[id number]] Glucose [Mass/volume] in Serum or Plasma [2345-7] 09/12/2024 03:46 PM 259 mg/dL N Blood chemistry[[id number]] Glucose [Mass/volume] in Serum or Plasma [2345-7] 09/12/2024 02:18 PM 164 mg/dL N Blood chemistry[[id number]] Glucose [Mass/volume] in Serum or Plasma [2345-7] 09/12/2024 10:18 AM 188 mg/dL N Blood chemistry[[id number]] Glucose [Mass/volume] in Serum or Plasma [2345-7] 09/12/2024 10:06 AM 174 mg/dL N Blood chemistry[[id number]] Glucose [Mass/volume] in Serum or Plasma [2345-7] 09/11/2024 04:41 PM 219 mg/dL N Blood chemistry[[id number]] Glucose [Mass/volume] in Serum or Plasma [2345-7] 09/11/2024 02:43 PM 175 mg/dL N Blood chemistry[[id number]] Glucose [Mass/volume] in Serum or Plasma [2345-7] 09/11/2024 10:05 AM 204 mg/dL N Blood chemistry[[id number]] Glucose [Mass/volume] in Serum or Plasma [2345-7] 09/11/2024 09:05 AM 169 mg/dL N Blood chemistry[[id number]] Glucose [Mass/volume] in Serum or Plasma [2345-7] 09/10/2024 04:06 PM 208 mg/dL N Blood chemistry[[id number]] Glucose [Mass/volume] in Serum or Plasma [2345-7] 09/10/2024 03:03 PM 185 mg/dL N Blood chemistry[[id number]] Glucose [Mass/volume] in Serum or Plasma [2345-7] 09/10/2024 11:49 AM 247 mg/dL N Blood chemistry[[id number]] Glucose [Mass/volume] in Serum or Plasma [2345-7] 09/10/2024 09:25 AM 202 mg/dL N Blood chemistry[[id number]] Glucose [Mass/volume] in Serum or Plasma [2345-7] 09/09/2024 01:45 PM 152 mg/dL N Blood chemistry[[id number]] Glucose [Mass/volume] in Serum or Plasma [2345-7] 09/09/2024 10:17 AM 202 mg/dL N Blood chemistry[[id number]] Glucose [Mass/volume] in Serum or Plasma [2345-7] 09/09/2024 10:07 AM 193 mg/dL N Blood chemistry[[id number]] Glucose [Mass/volume] in Serum or Plasma [2345-7] 09/09/2024 06:43 AM 199 mg/dL N Blood chemistry[[id number]] Glucose [Mass/volume] in Serum or Plasma [2345-7] 09/08/2024 05:58 PM 208 mg/dL N Blood chemistry[[id number]] Glucose [Mass/volume] in Serum or Plasma [2345-7] 09/08/2024 02:30 PM 166 mg/dL N Blood chemistry[[id number]] Glucose [Mass/volume] in Serum or Plasma [2345-7] 09/08/2024 10:01 AM 216 mg/dL N Blood chemistry[[id number]] Glucose [Mass/volume] in Serum or Plasma [2345-7] 09/08/2024 09:42 AM 219 mg/dL N Blood chemistry[[id number]] Glucose [Mass/volume] in Serum or Plasma [2345-7] 09/07/2024 04:38 PM 154 mg/dL N Blood chemistry[[id number]] Glucose [Mass/volume] in Serum or Plasma [2345-7] 09/07/2024 02:01 PM 178 mg/dL N Blood chemistry[[id number]] Glucose [Mass/volume] in Serum or Plasma [2345-7] 09/07/2024 10:37 AM 187 mg/dL N Blood chemistry[[id number]] Glucose [Mass/volume] in Serum or Plasma [2345-7] 09/07/2024 09:49 AM 284 mg/dL N Blood chemistry[[id number]] Glucose [Mass/volume] in Serum or Plasma [2345-7] 09/06/2024 04:29 PM 215 mg/dL N Blood chemistry[[id number]] Glucose [Mass/volume] in Serum or Plasma [2345-7] 09/06/2024 02:57 PM 199 mg/dL N Blood chemistry[[id number]] Glucose [Mass/volume] in Serum or Plasma [2345-7] 09/06/2024 10:50 AM 240 mg/dL N Blood chemistry[[id number]] Glucose [Mass/volume] in Serum or Plasma [2345-7] 09/06/2024 10:44 AM 194 mg/dL N Blood chemistry[[id number]] Glucose [Mass/volume] in Serum or Plasma [2345-7] 09/05/2024 05:25 PM 194 mg/dL N Blood chemistry[[id number]] Glucose [Mass/volume] in Serum or Plasma [2345-7] 09/05/2024 02:32 PM 148 mg/dL N Blood chemistry[[id number]] Glucose [Mass/volume] in Serum or Plasma [2345-7] 09/05/2024 10:21 AM 160 mg/dL N Blood chemistry[[id number]] Glucose [Mass/volume] in Serum or Plasma [2345-7] 09/05/2024 08:32 AM 210 mg/dL N Blood chemistry[[id number]] Glucose [Mass/volume] in Serum or Plasma [2345-7] 09/04/2024 05:58 PM 193 mg/dL N Blood chemistry[[id number]] Glucose [Mass/volume] in Serum or Plasma [2345-7] 09/04/2024 03:55 PM 172 mg/dL N Blood chemistry[[id number]] Glucose [Mass/volume] in Serum or Plasma [2345-7] 09/04/2024 11:44 AM 199 mg/dL N Blood chemistry[[id number]] Glucose [Mass/volume] in Serum or Plasma [2345-7] 09/04/2024 10:29 AM 217 mg/dL N Blood chemistry[[id number]] Glucose [Mass/volume] in Serum or Plasma [2345-7] 09/03/2024 05:38 PM 185 mg/dL N Blood chemistry[[id number]] Glucose [Mass/volume] in Serum or Plasma [2345-7] 09/03/2024 11:52 AM 196 mg/dL N Blood chemistry[[id number]] Glucose [Mass/volume] in Serum or Plasma [2345-7] 09/03/2024 10:14 AM 236 mg/dL N Blood chemistry[[id number]] Glucose [Mass/volume] in Serum or Plasma [2345-7] 09/03/2024 09:04 AM 236 mg/dL N Blood chemistry[[id number]] Glucose [Mass/volume] in Serum or Plasma [2345-7] 09/02/2024 04:40 PM 184 mg/dL N Blood chemistry[[id number]] Glucose [Mass/volume] in Serum or Plasma [2345-7] 09/02/2024 03:38 PM 188 mg/dL N Blood chemistry[[id number]] Glucose [Mass/volume] in Serum or Plasma [2345-7] 09/02/2024 11:10 AM 220 mg/dL N Blood chemistry[[id number]] Glucose [Mass/volume] in Serum or Plasma [2345-7] 09/02/2024 08:28 AM 204 mg/dL N Blood chemistry[[id number]] Glucose [Mass/volume] in Serum or Plasma [2345-7] 09/01/2024 04:00 PM 210 mg/dL N Blood chemistry[[id number]] Glucose [Mass/volume] in Serum or Plasma [2345-7] 09/01/2024 10:52 AM 186 mg/dL N Blood chemistry[[id number]] Glucose [Mass/volume] in Serum or Plasma [2345-7] 09/01/2024 10:37 AM 188 mg/dL N Blood chemistry[[id number]] Glucose [Mass/volume] in Serum or Plasma [2345-7] 09/01/2024 08:22 AM 202 mg/dL N Blood chemistry[[id number]] Glucose [Mass/volume] in Serum or Plasma [2345-7] 08/31/2024 04:39 PM 311 mg/dL N Blood chemistry[[id number]] Glucose [Mass/volume] in Serum or Plasma [2345-7] 08/31/2024 04:30 PM 199 mg/dL N Blood chemistry[[id number]] Glucose [Mass/volume] in Serum or Plasma [2345-7] 08/31/2024 10:12 AM 206 mg/dL N Blood chemistry[[id number]] Glucose [Mass/volume] in Serum or Plasma [2345-7] 08/31/2024 09:31 AM 207 mg/dL N Blood chemistry[[id number]] Glucose [Mass/volume] in Serum or Plasma [2345-7] 08/30/2024 04:07 PM 224 mg/dL N Blood chemistry[[id number]] Glucose [Mass/volume] in Serum or Plasma [2345-7] 08/30/2024 02:18 PM 210 mg/dL N Blood chemistry[[id number]] Glucose [Mass/volume] in Serum or Plasma [2345-7] 08/30/2024 10:54 AM 184 mg/dL N Blood chemistry[[id number]] Glucose [Mass/volume] in Serum or Plasma [2345-7] 08/30/2024 09:54 AM 205 mg/dL N Blood chemistry[[id number]] Glucose [Mass/volume] in Serum or Plasma [2345-7] 08/29/2024 04:13 PM 212 mg/dL N Blood chemistry[[id number]] Glucose [Mass/volume] in Serum or Plasma [2345-7] 08/29/2024 11:38 AM 151 mg/dL N Blood chemistry[[id number]] Glucose [Mass/volume] in Serum or Plasma [2345-7] 08/29/2024 11:23 AM 208 mg/dL N Blood chemistry[[id number]] Glucose [Mass/volume] in Serum or Plasma [2345-7] 08/29/2024 08:26 AM 269 mg/dL N Blood chemistry[[id number]] Glucose [Mass/volume] in Serum or Plasma [2345-7] 08/28/2024 04:27 PM 227 mg/dL N Blood chemistry[[id number]] Glucose [Mass/volume] in Serum or Plasma [2345-7] 08/28/2024 03:50 PM 214 mg/dL N Blood chemistry[[id number]] Glucose [Mass/volume] in Serum or Plasma [2345-7] 08/28/2024 11:09 AM 217 mg/dL N Blood chemistry[[id number]] Glucose [Mass/volume] in Serum or Plasma [2345-7] 08/28/2024 08:27 AM 196 mg/dL N Blood chemistry[[id number]] Glucose [Mass/volume] in Serum or Plasma [2345-7] 08/27/2024 04:27 PM 213 mg/dL N Blood chemistry[[id number]] Glucose [Mass/volume] in Serum or Plasma [2345-7] 08/27/2024 02:11 PM 184 mg/dL N Blood chemistry[[id number]] Glucose [Mass/volume] in Serum or Plasma [2345-7] 08/27/2024 11:59 AM 216 mg/dL N Blood chemistry[[id number]] Glucose [Mass/volume] in Serum or Plasma [2345-7] 08/27/2024 09:52 AM 195 mg/dL N Blood chemistry[[id number]] Glucose [Mass/volume] in Serum or Plasma [2345-7] 08/26/2024 03:11 PM 208 mg/dL N Blood chemistry[[id number]] Glucose [Mass/volume] in Serum or Plasma [2345-7] 08/26/2024 02:35 PM 224 mg/dL N Blood chemistry[[id number]] Glucose [Mass/volume] in Serum or Plasma [2345-7] 08/26/2024 11:20 AM 232 mg/dL N Blood chemistry[[id number]] Glucose [Mass/volume] in Serum or Plasma [2345-7] 08/26/2024 09:23 AM 210 mg/dL N Blood chemistry[[id number]] Glucose [Mass/volume] in Serum or Plasma [2345-7] 08/25/2024 04:36 PM 234 mg/dL N Blood chemistry[[id number]] Glucose [Mass/volume] in Serum or Plasma [2345-7] 08/25/2024 11:22 AM 152 mg/dL N Blood chemistry[[id number]] Glucose [Mass/volume] in Serum or Plasma [2345-7] 08/25/2024 10:05 AM 223 mg/dL N Blood chemistry[[id number]] Glucose [Mass/volume] in Serum or Plasma [2345-7] 08/25/2024 08:19 AM 236 mg/dL N Blood chemistry[[id number]] Glucose [Mass/volume] in Serum or Plasma [2345-7] 08/24/2024 04:19 PM 202 mg/dL N Blood chemistry[[id number]] Glucose [Mass/volume] in Serum or Plasma [2345-7] 08/24/2024 11:46 AM 199 mg/dL N Blood chemistry[[id number]] Glucose [Mass/volume] in Serum or Plasma [2345-7] 08/24/2024 10:07 AM 189 mg/dL N Blood chemistry[[id number]] Glucose [Mass/volume] in Serum or Plasma [2345-7] 08/24/2024 09:28 AM 197 mg/dL N Blood chemistry[[id number]] Glucose [Mass/volume] in Serum or Plasma [2345-7] 08/23/2024 05:25 PM 241 mg/dL N Blood chemistry[[id number]] Glucose [Mass/volume] in Serum or Plasma [2345-7] 08/23/2024 02:44 PM 178 mg/dL N Blood chemistry[[id number]] Glucose [Mass/volume] in Serum or Plasma [2345-7] 08/23/2024 10:18 AM 206 mg/dL N Blood chemistry[[id number]] Glucose [Mass/volume] in Serum or Plasma [2345-7] 08/23/2024 08:15 AM 225 mg/dL N Blood chemistry[[id number]] Glucose [Mass/volume] in Serum or Plasma [2345-7] 08/22/2024 04:35 PM 238 mg/dL N Blood chemistry[[id number]] Glucose [Mass/volume] in Serum or Plasma [2345-7] 08/22/2024 01:47 PM 155 mg/dL N Blood chemistry[[id number]] Glucose [Mass/volume] in Serum or Plasma [2345-7] 08/22/2024 11:31 AM 186 mg/dL N Blood chemistry[[id number]] Glucose [Mass/volume] in Serum or Plasma [2345-7] 08/22/2024 09:11 AM 207 mg/dL N Blood chemistry[[id number]] Glucose [Mass/volume] in Serum or Plasma [2345-7] 08/21/2024 05:38 PM 211 mg/dL N Blood chemistry[[id number]] Glucose [Mass/volume] in Serum or Plasma [2345-7] 08/21/2024 12:11 PM 251 mg/dL N Blood chemistry[[id number]] Glucose [Mass/volume] in Serum or Plasma [2345-7] 08/21/2024 11:28 AM 155 mg/dL N Blood chemistry[[id number]] Glucose [Mass/volume] in Serum or Plasma [2345-7] 08/21/2024 09:31 AM 189 mg/dL N Blood chemistry[[id number]] Glucose [Mass/volume] in Serum or Plasma [2345-7] 08/20/2024 03:39 PM 220 mg/dL N Blood chemistry[[id number]] Glucose [Mass/volume] in Serum or Plasma [2345-7] 08/20/2024 02:17 PM 224 mg/dL N Blood chemistry[[id number]] Glucose [Mass/volume] in Serum or Plasma [2345-7] 08/20/2024 10:08 AM 218 mg/dL N Blood chemistry[[id number]] Glucose [Mass/volume] in Serum or Plasma [2345-7] 08/20/2024 10:07 AM 186 mg/dL N Blood chemistry[[id number]] Glucose [Mass/volume] in Serum or Plasma [2345-7] 08/19/2024 04:39 PM 250 mg/dL N Blood chemistry[[id number]] Glucose [Mass/volume] in Serum or Plasma [2345-7] 08/19/2024 02:14 PM 221 mg/dL N Blood chemistry[[id number]] Glucose [Mass/volume] in Serum or Plasma [2345-7] 08/19/2024 11:20 AM 181 mg/dL N Blood chemistry[[id number]] Glucose [Mass/volume] in Serum or Plasma [2345-7] 08/19/2024 10:00 AM 254 mg/dL N Blood chemistry[[id number]] Glucose [Mass/volume] in Serum or Plasma [2345-7] 08/18/2024 04:45 PM 208 mg/dL N Blood chemistry[[id number]] Glucose [Mass/volume] in Serum or Plasma [2345-7] 08/18/2024 02:46 PM 212 mg/dL N Blood chemistry[[id number]] Glucose [Mass/volume] in Serum or Plasma [2345-7] 08/18/2024 10:13 AM 216 mg/dL N Blood chemistry[[id number]] Glucose [Mass/volume] in Serum or Plasma [2345-7] 08/18/2024 10:11 AM 193 mg/dL N Blood chemistry[[id number]] Glucose [Mass/volume] in Serum or Plasma [2345-7] 08/17/2024 04:36 PM 275 mg/dL N Blood chemistry[[id number]] Glucose [Mass/volume] in Serum or Plasma [2345-7] 08/17/2024 03:52 PM 204 mg/dL N Blood chemistry[[id number]] Glucose [Mass/volume] in Serum or Plasma [2345-7] 08/17/2024 10:39 AM 236 mg/dL N Blood chemistry[[id number]] Glucose [Mass/volume] in Serum or Plasma [2345-7] 08/17/2024 09:03 AM 197 mg/dL N Blood chemistry[[id number]] Glucose [Mass/volume] in Serum or Plasma [2345-7] 08/16/2024 04:19 PM 313 mg/dL N Blood chemistry[[id number]] Glucose [Mass/volume] in Serum or Plasma [2345-7] 08/16/2024 02:00 PM 185 mg/dL N Blood chemistry[[id number]] Glucose [Mass/volume] in Serum or Plasma [2345-7] 08/16/2024 10:44 AM 194 mg/dL N Blood chemistry[[id number]] Glucose [Mass/volume] in Serum or Plasma [2345-7] 08/16/2024 10:05 AM 196 mg/dL N Blood chemistry[[id number]] Glucose [Mass/volume] in Serum or Plasma [2345-7] 08/15/2024 04:04 PM 257 mg/dL N Blood chemistry[[id number]] Glucose [Mass/volume] in Serum or Plasma [2345-7] 08/15/2024 02:44 PM 195 mg/dL N Blood chemistry[[id number]] Glucose [Mass/volume] in Serum or Plasma [2345-7] 08/15/2024 11:47 AM 227 mg/dL N Blood chemistry[[id number]] Glucose [Mass/volume] in Serum or Plasma [2345-7] 08/15/2024 10:40 AM 278 mg/dL N Blood chemistry[[id number]] Glucose [Mass/volume] in Serum or Plasma [2345-7] 08/14/2024 04:19 PM 201 mg/dL N Blood chemistry[[id number]] Glucose [Mass/volume] in Serum or Plasma [2345-7] 08/14/2024 03:34 PM 203 mg/dL N Blood chemistry[[id number]] Glucose [Mass/volume] in Serum or Plasma [2345-7] 08/14/2024 11:26 AM 216 mg/dL N Blood chemistry[[id number]] Glucose [Mass/volume] in Serum or Plasma [2345-7] 08/14/2024 10:08 AM 192 mg/dL N Blood chemistry[[id number]] Glucose [Mass/volume] in Serum or Plasma [2345-7] 08/13/2024 03:46 PM 278 mg/dL N Blood chemistry[[id number]] Glucose [Mass/volume] in Serum or Plasma [2345-7] 08/13/2024 02:16 PM 234 mg/dL N Blood chemistry[[id number]] Glucose [Mass/volume] in Serum or Plasma [2345-7] 08/13/2024 10:25 AM 180 mg/dL N Blood chemistry[[id number]] Glucose [Mass/volume] in Serum or Plasma [2345-7] 08/13/2024 08:05 AM 214 mg/dL N Blood chemistry[[id number]] Glucose [Mass/volume] in Serum or Plasma [2345-7] 08/12/2024 02:09 PM 230 mg/dL N Blood chemistry[[id number]] Glucose [Mass/volume] in Serum or Plasma [2345-7] 08/12/2024 01:34 PM 240 mg/dL N Blood chemistry[[id number]] Glucose [Mass/volume] in Serum or Plasma [2345-7] 08/12/2024 10:09 AM 222 mg/dL N Blood chemistry[[id number]] Glucose [Mass/volume] in Serum or Plasma [2345-7] 08/12/2024 09:41 AM 249 mg/dL N Blood chemistry[[id number]] Glucose [Mass/volume] in Serum or Plasma [2345-7] 08/11/2024 03:57 PM 310 mg/dL N Blood chemistry[[id number]] Glucose [Mass/volume] in Serum or Plasma [2345-7] 08/11/2024 01:13 PM 225 mg/dL N Blood chemistry[[id number]] Glucose [Mass/volume] in Serum or Plasma [2345-7] 08/11/2024 09:31 AM 235 mg/dL N Blood chemistry[[id number]] Glucose [Mass/volume] in Serum or Plasma [2345-7] 08/11/2024 09:14 AM 286 mg/dL N Blood chemistry[[id number]] Glucose [Mass/volume] in Serum or Plasma [2345-7] 08/10/2024 04:26 PM 304 mg/dL N Blood chemistry[[id number]] Glucose [Mass/volume] in Serum or Plasma [2345-7] 08/10/2024 10:05 AM 211 mg/dL N Blood chemistry[[id number]] Glucose [Mass/volume] in Serum or Plasma [2345-7] 08/10/2024 10:04 AM 195 mg/dL N Blood chemistry[[id number]] Glucose [Mass/volume] in Serum or Plasma [2345-7] 08/09/2024 03:22 PM 310 mg/dL N Blood chemistry[[id number]] Glucose [Mass/volume] in Serum or Plasma [2345-7] 08/09/2024 11:09 AM 221 mg/dL N Blood chemistry[[id number]] Glucose [Mass/volume] in Serum or Plasma [2345-7] 08/09/2024 09:55 AM 256 mg/dL N Blood chemistry[[id number]] Glucose [Mass/volume] in Serum or Plasma [2345-7] 08/09/2024 08:39 AM 261 mg/dL N Blood chemistry[[id number]] Glucose [Mass/volume] in Serum or Plasma [2345-7] 08/08/2024 03:27 PM 227 mg/dL N Blood chemistry[[id number]] Glucose [Mass/volume] in Serum or Plasma [2345-7] 08/08/2024 03:13 PM 221 mg/dL N Blood chemistry[[id number]] Glucose [Mass/volume] in Serum or Plasma [2345-7] 08/08/2024 08:04 AM 246 mg/dL N Blood chemistry[[id number]] Glucose [Mass/volume] in Serum or Plasma [2345-7] 08/08/2024 07:33 AM 232 mg/dL N Blood chemistry[[id number]] Glucose [Mass/volume] in Serum or Plasma [2345-7] 08/07/2024 03:37 PM 271 mg/dL N Blood chemistry[[id number]] Glucose [Mass/volume] in Serum or Plasma [2345-7] 08/07/2024 01:10 PM 197 mg/dL N Blood chemistry[[id number]] Glucose [Mass/volume] in Serum or Plasma [2345-7] 08/07/2024 09:48 AM 250 mg/dL N Blood chemistry[[id number]] Glucose [Mass/volume] in Serum or Plasma [2345-7] 08/07/2024 08:36 AM 220 mg/dL N Blood chemistry[[id number]] Glucose [Mass/volume] in Serum or Plasma [2345-7] 08/06/2024 04:26 PM 220 mg/dL N Blood chemistry[[id number]] Glucose [Mass/volume] in Serum or Plasma [2345-7] 08/06/2024 01:23 PM 185 mg/dL N Blood chemistry[[id number]] Glucose [Mass/volume] in Serum or Plasma [2345-7] 08/06/2024 08:53 AM 190 mg/dL N Blood chemistry[[id number]] Glucose [Mass/volume] in Serum or Plasma [2345-7] 08/06/2024 08:39 AM 204 mg/dL N Blood chemistry[[id number]] Glucose [Mass/volume] in Serum or Plasma [2345-7] 08/06/2024 05:07 AM 249 mg/dL N Blood chemistry[[id number]] Glucose [Mass/volume] in Serum or Plasma [2345-7] 08/05/2024 03:31 PM 205 mg/dL N Blood chemistry[[id number]] Glucose [Mass/volume] in Serum or Plasma [2345-7] 08/05/2024 12:59 PM 200 mg/dL N Blood chemistry[[id number]] Glucose [Mass/volume] in Serum or Plasma [2345-7] 08/05/2024 10:10 AM 268 mg/dL N Blood chemistry[[id number]] Glucose [Mass/volume] in Serum or Plasma [2345-7] 08/05/2024 05:12 AM 236 mg/dL N Blood chemistry[[id number]] Glucose [Mass/volume] in Serum or Plasma [2345-7] 08/04/2024 03:39 PM 248 mg/dL N Blood chemistry[[id number]] Glucose [Mass/volume] in Serum or Plasma [2345-7] 08/04/2024 01:27 PM 234 mg/dL N Blood chemistry[[id number]] Glucose [Mass/volume] in Serum or Plasma [2345-7] 08/04/2024 08:45 AM 201 mg/dL N Blood chemistry[[id number]] Glucose [Mass/volume] in Serum or Plasma [2345-7] 08/04/2024 05:01 AM 226 mg/dL N Blood chemistry[[id number]] Glucose [Mass/volume] in Serum or Plasma [2345-7] 08/03/2024 03:48 PM 272 mg/dL N Blood chemistry[[id number]] Glucose [Mass/volume] in Serum or Plasma [2345-7] 08/03/2024 10:19 AM 213 mg/dL N Blood chemistry[[id number]] Glucose [Mass/volume] in Serum or Plasma [2345-7] 08/03/2024 09:05 AM 272 mg/dL N Blood chemistry[[id number]] Glucose [Mass/volume] in Serum or Plasma [2345-7] 08/02/2024 03:21 PM 255 mg/dL N Blood chemistry[[id number]] Glucose [Mass/volume] in Serum or Plasma [2345-7] 08/02/2024 11:30 AM 226 mg/dL N Blood chemistry[[id number]] Glucose [Mass/volume] in Serum or Plasma [2345-7] 08/02/2024 10:41 AM 295 mg/dL N Blood chemistry[[id number]] Glucose [Mass/volume] in Serum or Plasma [2345-7] 08/02/2024 10:06 AM 225 mg/dL N Blood chemistry[[id number]] Glucose [Mass/volume] in Serum or Plasma [2345-7] 08/01/2024 02:30 PM 251 mg/dL N Blood chemistry[[id number]] Glucose [Mass/volume] in Serum or Plasma [2345-7] 08/01/2024 12:53 PM 221 mg/dL N Blood chemistry[[id number]] Glucose [Mass/volume] in Serum or Plasma [2345-7] 08/01/2024 10:35 AM 239 mg/dL N Blood chemistry[[id number]] Glucose [Mass/volume] in Serum or Plasma [2345-7] 08/01/2024 07:36 AM 222 mg/dL N Blood chemistry[[id number]] Glucose [Mass/volume] in Serum or Plasma [2345-7] 07/31/2024 03:49 PM 249 mg/dL N Blood chemistry[[id number]] Glucose [Mass/volume] in Serum or Plasma [2345-7] 07/31/2024 01:01 PM 256 mg/dL N Blood chemistry[[id number]] Glucose [Mass/volume] in Serum or Plasma [2345-7] 07/31/2024 09:45 AM 201 mg/dL N Blood chemistry[[id number]] Glucose [Mass/volume] in Serum or Plasma [2345-7] 07/31/2024 09:19 AM 325 mg/dL N Blood chemistry[[id number]] Glucose [Mass/volume] in Serum or Plasma [2345-7] 07/30/2024 04:41 PM 329 mg/dL N Blood chemistry[[id number]] Glucose [Mass/volume] in Serum or Plasma [2345-7] 07/30/2024 12:52 PM 224 mg/dL N Blood chemistry[[id number]] Glucose [Mass/volume] in Serum or Plasma [2345-7] 07/30/2024 10:44 AM 200 mg/dL N Blood chemistry[[id number]] Glucose [Mass/volume] in Serum or Plasma [2345-7] 07/30/2024 07:52 AM 241 mg/dL N Blood chemistry[[id number]] Glucose [Mass/volume] in Serum or Plasma [2345-7] 07/29/2024 02:32 PM 255 mg/dL N Blood chemistry[[id number]] Glucose [Mass/volume] in Serum or Plasma [2345-7] 07/29/2024 02:13 PM 237 mg/dL N Blood chemistry[[id number]] Glucose [Mass/volume] in Serum or Plasma [2345-7] 07/29/2024 09:27 AM 297 mg/dL N Blood chemistry[[id number]] Glucose [Mass/volume] in Serum or Plasma [2345-7] 07/29/2024 07:44 AM 330 mg/dL N Blood chemistry[[id number]] Glucose [Mass/volume] in Serum or Plasma [2345-7] 07/28/2024 04:50 PM 410 mg/dL N COVID-19 Test Viral PCR null flavor [null] 07/28/2024 04:00 PM See note NEG COVID-19 Test Viral PCR Blood chemistry[[id number]] Glucose [Mass/volume] in Serum or Plasma [2345-7] 07/28/2024 02:32 PM 198 mg/dL N Blood chemistry[[id number]] Glucose [Mass/volume] in Serum or Plasma [2345-7] 07/28/2024 09:05 AM 293 mg/dL N Blood chemistry[[id number]] Glucose [Mass/volume] in Serum or Plasma [2345-7] 07/28/2024 08:11 AM 245 mg/dL N Tuberculosis reaction wheal[ 02875-4] Tuberculosis reaction wheal [62409-0] 07/27/2024 04:00 PM 0 mm NEG Blood chemistry[[id number]] Glucose [Mass/volume] in Serum or Plasma [2345-7] 07/27/2024 12:42 PM 236 mg/dL N Blood chemistry[[id number]] Glucose [Mass/volume] in Serum or Plasma [2345-7] 07/27/2024 08:52 AM 305 mg/dL N COVID-19 Test Viral Antigen null flavor [null] 07/15/2024 04:00 PM See note NEG COVID-19 Test Viral Antigen Blood chemistry[[id number]] Glucose [Mass/volume] in Serum or Plasma [2345-7] 07/15/2024 03:13 PM 209 mg/dL N Blood chemistry[[id number]] Glucose [Mass/volume] in Serum or Plasma [2345-7] 07/15/2024 09:27 AM 226 mg/dL N Blood chemistry[[id number]] Glucose [Mass/volume] in Serum or Plasma [2345-7] 07/15/2024 05:56 AM 264 mg/dL N Blood chemistry[[id number]] Glucose [Mass/volume] in Serum or Plasma [2345-7] 07/14/2024 03:32 PM 209 mg/dL N Blood chemistry[[id number]] Glucose [Mass/volume] in Serum or Plasma [2345-7] 07/14/2024 11:19 AM 179 mg/dL N Blood chemistry[[id number]] Glucose [Mass/volume] in Serum or Plasma [2345-7] 07/14/2024 09:54 AM 148 mg/dL N Blood chemistry[[id number]] Glucose [Mass/volume] in Serum or Plasma [2345-7] 07/14/2024 05:16 AM 190 mg/dL N Blood chemistry[[id number]] Glucose [Mass/volume] in Serum or Plasma [2345-7] 07/13/2024 04:40 PM 257 mg/dL N Blood chemistry[[id number]] Glucose [Mass/volume] in Serum or Plasma [2345-7] 07/13/2024 03:01 PM 238 mg/dL N Blood chemistry[[id number]] Glucose [Mass/volume] in Serum or Plasma [2345-7] 07/13/2024 11:29 AM 222 mg/dL N Blood chemistry[[id number]] Glucose [Mass/volume] in Serum or Plasma [2345-7] 07/13/2024 09:34 AM 213 mg/dL N Blood chemistry[[id number]] Glucose [Mass/volume] in Serum or Plasma [2345-7] 07/12/2024 04:40 PM 244 mg/dL N Blood chemistry[[id number]] Glucose [Mass/volume] in Serum or Plasma [2345-7] 07/12/2024 03:41 PM 124 mg/dL N Blood chemistry[[id number]] Glucose [Mass/volume] in Serum or Plasma [2345-7] 07/12/2024 11:20 AM 140 mg/dL N Blood chemistry[[id number]] Glucose [Mass/volume] in Serum or Plasma [2345-7] 07/12/2024 09:43 AM 274 mg/dL N Blood chemistry[[id number]] Glucose [Mass/volume] in Serum or Plasma [2345-7] 07/11/2024 04:05 PM 256 mg/dL N Tuberculosis reaction wheal[ 66666-5] Tuberculosis reaction wheal [67894-8] 07/11/2024 04:00 PM See note TB test Blood chemistry[[id number]] Glucose [Mass/volume] in Serum or Plasma [2345-7] 07/11/2024 03:33 PM 275 mg/dL N Blood chemistry[[id number]] Glucose [Mass/volume] in Serum or Plasma [2345-7] 07/11/2024 03:03 PM 205 mg/dL N Blood chemistry[[id number]] Glucose [Mass/volume] in Serum or Plasma [2345-7] 07/11/2024 10:19 AM 210 mg/dL N Blood chemistry[[id number]] Glucose [Mass/volume] in Serum or Plasma [2345-7] 07/10/2024 10:56 AM 353 mg/dL N Blood chemistry[[id number]] Glucose [Mass/volume] in Serum or Plasma [2345-7] 07/10/2024 09:06 AM 271 mg/dL N Blood chemistry[[id number]] Glucose [Mass/volume] in Serum or Plasma [2345-7] 07/10/2024 05:55 AM 265 mg/dL N Blood chemistry[[id number]] Glucose [Mass/volume] in Serum or Plasma [2345-7] 07/10/2024 05:42 AM 241 mg/dL N Blood chemistry[[id number]] Glucose [Mass/volume] in Serum or Plasma [2345-7] 07/09/2024 04:12 PM 257 mg/dL N Blood chemistry[[id number]] Glucose [Mass/volume] in Serum or Plasma [2345-7] 07/09/2024 09:06 AM 258 mg/dL N Blood chemistry[[id number]] Glucose [Mass/volume] in Serum or Plasma [2345-7] 07/09/2024 08:46 AM 205 mg/dL N Blood chemistry[[id number]] Glucose [Mass/volume] in Serum or Plasma [2345-7] 07/09/2024 06:00 AM 266 mg/dL N Blood chemistry[[id number]] Glucose [Mass/volume] in Serum or Plasma [2345-7] 07/08/2024 03:26 PM 247 mg/dL N Blood chemistry[[id number]] Glucose [Mass/volume] in Serum or Plasma [2345-7] 07/08/2024 09:50 AM 285 mg/dL N Blood chemistry[[id number]] Glucose [Mass/volume] in Serum or Plasma [2345-7] 07/08/2024 09:28 AM 201 mg/dL N Blood chemistry[[id number]] Glucose [Mass/volume] in Serum or Plasma [2345-7] 07/07/2024 03:54 PM 315 mg/dL N Blood chemistry[[id number]] Glucose [Mass/volume] in Serum or Plasma [2345-7] 07/07/2024 03:51 PM 264 mg/dL N Blood chemistry[[id number]] Glucose [Mass/volume] in Serum or Plasma [2345-7] 07/07/2024 10:56 AM 321 mg/dL N Blood chemistry[[id number]] Glucose [Mass/volume] in Serum or Plasma [2345-7] 07/07/2024 09:50 AM 208 mg/dL N Blood chemistry[[id number]] Glucose [Mass/volume] in Serum or Plasma [2345-7] 07/07/2024 05:05 AM 212 mg/dL N Blood chemistry[[id number]] Glucose [Mass/volume] in Serum or Plasma [2345-7] 07/06/2024 04:29 PM 260 mg/dL N Blood chemistry[[id number]] Glucose [Mass/volume] in Serum or Plasma [2345-7] 07/06/2024 03:19 PM 269 mg/dL N Blood chemistry[[id number]] Glucose [Mass/volume] in Serum or Plasma [2345-7] 07/06/2024 10:41 AM 236 mg/dL N Blood chemistry[[id number]] Glucose [Mass/volume] in Serum or Plasma [2345-7] 07/06/2024 09:15 AM 228 mg/dL N Blood chemistry[[id number]] Glucose [Mass/volume] in Serum or Plasma [2345-7] 07/05/2024 04:53 PM 257 mg/dL N Blood chemistry[[id number]] Glucose [Mass/volume] in Serum or Plasma [2345-7] 07/05/2024 03:39 PM 284 mg/dL N Blood chemistry[[id number]] Glucose [Mass/volume] in Serum or Plasma [2345-7] 07/05/2024 10:59 AM 307 mg/dL N Blood chemistry[[id number]] Glucose [Mass/volume] in Serum or Plasma [2345-7] 07/05/2024 09:44 AM 251 mg/dL N Blood chemistry[[id number]] Glucose [Mass/volume] in Serum or Plasma [2345-7] 07/04/2024 04:18 PM 312 mg/dL N Blood chemistry[[id number]] Glucose [Mass/volume] in Serum or Plasma [2345-7] 07/04/2024 04:11 PM 282 mg/dL N Blood chemistry[[id number]] Glucose [Mass/volume] in Serum or Plasma [2345-7] 07/04/2024 10:51 AM 276 mg/dL N Blood chemistry[[id number]] Glucose [Mass/volume] in Serum or Plasma [2345-7] 07/04/2024 09:20 AM 222 mg/dL N Blood chemistry[[id number]] Glucose [Mass/volume] in Serum or Plasma [2345-7] 07/03/2024 03:42 PM 267 mg/dL N Blood chemistry[[id number]] Glucose [Mass/volume] in Serum or Plasma [2345-7] 07/03/2024 09:30 AM 209 mg/dL N Blood chemistry[[id number]] Glucose [Mass/volume] in Serum or Plasma [2345-7] 07/03/2024 09:03 AM 240 mg/dL N Blood chemistry[[id number]] Glucose [Mass/volume] in Serum or Plasma [2345-7] 07/03/2024 05:38 AM 280 mg/dL N Tuberculosis reaction wheal[ 48212-8] Tuberculosis reaction wheal [75394-0] 07/02/2024 04:00 PM 0 mm NEG Blood chemistry[[id number]] Glucose [Mass/volume] in Serum or Plasma [2345-7] 07/02/2024 03:50 PM 243 mg/dL N Blood chemistry[[id number]] Glucose [Mass/volume] in Serum or Plasma [2345-7] 07/02/2024 11:24 AM 263 mg/dL N Blood chemistry[[id number]] Glucose [Mass/volume] in Serum or Plasma [2345-7] 07/02/2024 11:22 AM 207 mg/dL N Allergies, adverse reactions, alerts No known allergies and adverse reactions Immunizations Vaccine Route Date Status COVID-19 Vaccine Unassigned Route of Administration Completed COVID-19 Vaccine Unassigned Route of Administration Completed COVID-19 Vaccine Unassigned Route of Administration Completed COVID-19 Vaccine Unassigned Route of Administration Completed COVID-19 Vaccine Unassigned Route of Administration Completed COVID-19 Vaccine Unassigned Route of Administration Completed COVID-19 Vaccine Unassigned Route of Administration Completed Influenza Vaccine Unassigned Route of Administration 0 06/04/2023 Completed Pneumococcal Vaccine Unassigned Route of Administratio n 06/11/2023 Completed RSV Vaccine Unassigned Route of Administration Completed Tetanus Vaccine Unassigned Route of Administration Completed COVID-19 Vaccine Unassigned Route of Administration Completed Medications Medication Instructions Route Dosage Frequency Start Date Stop Date Indications Status acetaminophen 325 mg tablet (acetaminophe n) 650mg, gastric tube, Every 6 Hours - PRN, pain 1.0 6.0 h 2023 Active amlodipine 5 mg tablet (amlodipine) 5mg, gastric tube, Once A Day 1.0 1.0 d 2023 Essential (primary) hypertension Active Artificial Tears(glyceri n-peg) (propylene glycol-glycer in) 1-0.3 % drops (Artificial Tears(glyceri n-peg) (propylene glycol-glycer in)) 1 drop, ophthalmic (eye), Four Times A Day - PRN 1.0 6.0 h 2023 Unspecified acute conjunctivitis , bilateral Active aspirin 81 mg tablet,chewab le (aspirin) 1 tab, oral, Once A Day oral 1.0 1.0 d 2023 Cerebral infarction due to unspecified occlusion or stenosis of right anterior cerebral artery Active atorvastatin 40 mg tablet (atorvastatin ) 1 tablet, gastric tube, At Bedtime, hyperlipidemia 1.0 2023 Active buspirone 5 mg tablet (buspirone) 5mg, gastric tube, Three Times A Day 1.0 8.0 h 2023 Anxiety disorder, unspecified Active cholecalcifer ol (vitamin D3) 12.5 mcg/5 mL (500 unit/5 mL) liquid (cholecalcife rol (vitamin D3)) 125 mcg, gastric tube, Once A Day, [id number] 1.0 1.0 d 2023 Active famotidine 20 mg tablet (famotidine) 1 tablet, gastric tube, Twice A Day 1.0 12.0 h 11/17 Gastro-esophag eal reflux disease without esophagitis Active Gas Relief 80 (simethicone) (simethicone) 80 mg tablet,chewab le (Gas Relief 80 (simethicone) (simethicone) ) 1 tablet, gastric tube, Four Times A Day 1.0 6.0 h 2023 Gastro-esophag eal reflux disease without esophagitis Active Glucagon Emergency Kit (human) (glucagon) 1 mg recon soln (Glucagon Emergency Kit (human) (glucagon)) 1mg, injection, Four Times A Day - PRN, blood sugar less than 70 1.0 6.0 h 2023 Type 2 diabetes mellitus without complications Active insulin lispro 100 unit/mL insulin pen (insulin lispro) Per Sliding Scale, subcutaneous, Before Meals and At Bedtime, If Blood Sugar is less than 50, call MD.If Blood Sugar is 150 to 200, give 2 Units.If Blood Sugar is 201 to 250, give 4 Units.If Blood Sugar is 251 to 300, give 6 Units.If Blood Sugar is 301 to 350, give 8 Units.If Blood Sugar is 351 to 400, give 10 Units.If Blood Sugar is 401 to 450, give 12 Units.If Blood Sugar is greater than 450, give 12 Units.If Blood Sugar is greater than 450, call MD. subcutan eous 1.0 2023 Type 2 diabetes mellitus without complications Active ipratropium-a lbuterol 0.5 mg-3 mg(2.5 mg base)/3 mL solution for nebulization (ipratropium- albuterol) 3ml, inhalation, Every 6 Hours - PRN, sob/wheezing inhalati on 1.0 6.0 h 2023 Chronic obstructive pulmonary disease, unspecified Active losartan 100 mg tablet (losartan) 100mg, gastric tube, Once A Day 1.0 1.0 d 2023 Essential (primary) hypertension Active melatonin 10 mg tablet (melatonin) 10 mg, oral, At Bedtime oral 1.0 2023 Insomnia, unspecified Active metoprolol tartrate 25 mg tablet (metoprolol tartrate) 1 tablet, gastric tube, Twice A Day 1.0 12.0 h 2023 Essential (primary) hypertension Active Miralax (polyethylene glycol 3350) 17 gram/dose powder (Miralax (polyethylene glycol 3350)) 17 grams, gastric tube, Once A Day - PRN, constipation 1.0 1.0 d 2023 Active oxycodone-saji taminophen 5-325 mg tablet (oxycodone-ac etaminophen) 1 tablet, gastric tube, Every 6 Hours, moderate to severe pain 5-10 1.0 6.0 h 10/18/ 2024 Active Paxil (paroxetine hcl) 10 mg tablet (Paxil (paroxetine hcl)) 10mg, gastric tube, Once A Day, depression 1.0 1.0 d 2023 Active risperidone 1 mg tablet (risperidone) 1 mg, gastric tube, Twice A Day, psychosis 1.0 12.0 h 10/04 Anxiety disorder, unspecified Active senna 8.8 mg/5 mL syrup (senna) 5ml, gastric tube, At Bedtime, constipation 1.0 2023 Active trazodone 50 mg tablet (trazodone) 75 mg, oral, At Bedtime oral 1.0 2023 Insomnia, unspecified Active valproic acid (as sodium salt) 250 mg/5 mL solution (valproic acid (as sodium salt)) 5ml, oral, Three Times A Day oral 1.0 8.0 h 11/29 Cerebral infarction due to unspecified occlusion or stenosis of right anterior cerebral artery Active Artificial Tears (PF) (dextran 70-hypromello se) - dropperette (Artificial Tears (PF) (dextran 70-hypromello se)) one drop bilaterally, ophthalmic (eye), Four Times A Day - PRN 1.0 6.0 h 09/19 Unspecified acute conjunctivitis , bilateral Active melatonin 5 mg tablet (melatonin) 5mg, gastric tube, At Bedtime 1.0 08/29 Primary insomnia Active Miralax (polyethylene glycol 3350) 17 gram/dose powder (Miralax (polyethylene glycol 3350)) 17 gram, gastric tube, Once A Day, constipation 1.0 1.0 d 09/20 Active trazodone 50 mg tablet (trazodone) 50mg, gastric tube, At Bedtime, insomnia 1.0 08/29 Active bacitracin 500 unit/gram ointment (bacitracin) 1 application, topical, Three Times A Day, apply to incision along right side of nose and upper lip every shift. may leave open to air. topical 1.0 8.0 h 10/20 Active risperidone 1 mg tablet (risperidone) 1 mg, gastric tube, Once A Day, psychosis 1.0 1.0 d 11/04 Anxiety disorder, unspecified Active Risperdal (risperidone) 0.5 mg tablet (Risperdal (risperidone) ) 0.5 mg, oral, Once A Day oral 1.0 1.0 d 11/17 Major depressive disorder, recurrent, severe with psychotic symptoms Active famotidine 20 mg tablet (famotidine) 1 tablet, gastric tube, At Bedtime 1.0 2024 Gastro-esophag eal reflux disease without esophagitis Active Risperdal (risperidone) 0.5 mg tablet (Risperdal (risperidone) ) 0.5 mg, oral, Once A Day oral 1.0 1.0 d 12/01 Major depressive disorder, recurrent, severe with psychotic symptoms Active Cardura (doxazosin) 2 mg tablet (Cardura (doxazosin)) 1 tab, gastric tube, Once A Day, for BPH 1.0 1.0 d 2024 Active Keppra (levetiraceta m) 100 mg/mL solution (Keppra (levetiraceta m)) 500 mg = 5 mL, oral, Twice A Day, Seizure like activity oral 1.0 12.0 h 11/29 Active Keppra (levetiraceta m) 100 mg/mL solution (Keppra (levetiraceta m)) 500 mg = 5 mL, oral, Once A Day, Seizure like activity oral 1.0 1.0 d 12/06 Active valproic acid (as sodium salt) 250 mg/5 mL solution (valproic acid (as sodium salt)) 7.5ml, oral, Three Times A Day oral 1.0 8.0 h 12/21 Cerebral infarction due to unspecified occlusion or stenosis of right anterior cerebral artery Active Voltaren Arthritis Pain (diclofenac sodium) 1 % gel (Voltaren Arthritis Pain (diclofenac sodium)) 1 application, topical, Every 8 Hours - PRN, apply to left arm as needed for left arm pain topical 1.0 8.0 h 2024 Active Risperdal (risperidone) 0.5 mg tablet (Risperdal (risperidone) ) 0.25 mg, gastric tube, Once A Day 1.0 1.0 d 12/08 Major depressive disorder, recurrent, severe with psychotic symptoms Active ciprofloxacin HCl 500 mg tablet (ciprofloxaci n HCl) 1 tab, oral, Twice A Day, for abnormal urine oral 1.0 12.0 h 12/07 Active ciprofloxacin HCl 500 mg tablet (ciprofloxaci n HCl) 1 tab, oral, Twice A Day, for abnormal urine oral 1.0 12.0 h 12/08 Active ciprofloxacin HCl 500 mg tablet (ciprofloxaci n HCl) 1 tab, oral, Twice A Day, for abnormal urine oral 1.0 12.0 h 12/05 Active risperidone 0.25 mg tablet (risperidone) 0.25mg, oral, Once A Day oral 1.0 1.0 d 12/15 Major depressive disorder, recurrent, severe with psychotic symptoms Active valproic acid (as sodium salt) 250 mg/5 mL solution (valproic acid (as sodium salt)) 10 mL, oral, Three Times A Day oral 1.0 8.0 h 2024 Cerebral infarction due to unspecified occlusion or stenosis of right anterior cerebral artery Active Lantus Solostar U-100 Insulin (insulin glargine) 100 unit/mL (3 mL) insulin pen (Lantus Solostar U-100 Insulin (insulin glargine)) 10 units, subcutaneous, At Bedtime subcutan eous 1.0 12/29 Active Rezvoglar KwikPen (insulin glargine-aglr ) 100 unit/mL (3 mL) insulin pen (Rezvoglar KwikPen (insulin glargine-aglr )) 10 units, subcutaneous, At Bedtime subcutan eous 1.0 2024 Active baclofen 10 mg tablet (baclofen) 1 tab, oral, Three Times A Day - PRN, as needed for pain oral 1.0 8.0 h 02/06 Active Spikevax 9017-8585(12y up)(PF) (covid vac 24-25(12up)(m od)(pf)) 50 mcg/0.5 mL syringe (Spikevax (12y up)(PF) (covid vac 24-25(12up)(m od)(pf))) 0.5ml, intramuscular, Once - One Time intramus cular 1.0 01/12 Active baclofen 10 mg tablet (baclofen) 1 tab, oral, Twice A Day oral 1.0 12.0 h 2024 Hemiplegia and hemiparesis following cerebral infarction affecting left non-dominant side Active Vital Signs Date Vital Result Comment 09/14/2024 07:44 PM Temperature (8310-5) 98.1 [degF] Oxygen Saturation (95674-7) 95 % Respiratory Rate (9279-1) 18 /min Heart Rate (8867-4) 97 /min Blood Pressure Systolic (8480-6) 164 mm[Hg] Blood Pressure Diastolic (8462-4) 76 mm[Hg] 09/13/2024 01:12 PM Body Weight (06945-5) 190.2 [lb_av ] Body Mass Index (11866-1) 27.29 kg/m2 09/06/2024 02:42 AM Temperature (8310-5) 97.9 [degF] 09/05/2024 04:58 AM Temperature (8310-5) 98 [degF] 09/04/2024 06:44 AM Temperature (8310-5) 97.6 [degF] 09/03/2024 01:20 AM Temperature (8310-5) 98.1 [degF] 08/30/2024 02:02 PM Body Weight (72401-2) 192.6 [lb_av ] Body Mass Index (48529-6) 27.63 kg/m2 08/22/2024 10:42 AM Body Weight (02940-7) 192 [lb_av] Body Mass Index (34853-8) 27.55 kg/m2 08/16/2024 12:22 PM Body Weight (24088-0) 194.6 [lb_av ] Body Mass Index (25430-9) 27.92 kg/m2 08/13/2024 12:13 AM Temperature (8310-5) 98.1 [degF] Oxygen Saturation (70095-5) 95 % Respiratory Rate (9279-1) 18 /min Heart Rate (8867-4) 83 /min Blood Pressure Systolic (8480-6) 164 mm[Hg] Blood Pressure Diastolic (8462-4) 65 mm[Hg] 07/31/2024 04:01 AM Temperature (8310-5) 98.4 [degF] Oxygen Saturation (89105-0) 97 % Respiratory Rate (9279-1) 20 /min Heart Rate (8867-4) 90 /min Blood Pressure Systolic (8480-6) 141 mm[Hg] Blood Pressure Diastolic (8462-4) 78 mm[Hg] 07/30/2024 08:55 PM Temperature (8310-5) 98 [degF] Oxygen Saturation (66402-0) 96 % Respiratory Rate (9279-1) 18 /min Heart Rate (8867-4) 85 /min Blood Pressure Systolic (8480-6) 133 mm[Hg] Blood Pressure Diastolic (8462-4) 70 mm[Hg] 07/30/2024 01:54 PM Temperature (8310-5) 97.8 [degF] Oxygen Saturation (77577-6) 97 % Respiratory Rate (9279-1) 18 /min Heart Rate (8867-4) 88 /min Blood Pressure Systolic (8480-6) 138 mm[Hg] Blood Pressure Diastolic (8462-4) 73 mm[Hg] 07/30/2024 01:42 AM Temperature (8310-5) 98.3 [degF] Oxygen Saturation (07044-1) 96 % Respiratory Rate (9279-1) 18 /min Heart Rate (8867-4) 96 /min Blood Pressure Systolic (8480-6) 141 mm[Hg] Blood Pressure Diastolic (8462-4) 75 mm[Hg] 07/29/2024 06:55 PM Oxygen Saturation (86703-7) 99 % Respiratory Rate (9279-1) 18 /min Heart Rate (8867-4) 84 /min Blood Pressure Systolic (8480-6) 128 mm[Hg] Blood Pressure Diastolic (8462-4) 68 mm[Hg] 07/29/2024 01:23 AM Oxygen Saturation (34730-9) 94 % Respiratory Rate (9279-1) 18 /min Heart Rate (8867-4) 110 /min Blood Pressure Systolic (8480-6) 121 mm[Hg] Blood Pressure Diastolic (8462-4) 57 mm[Hg] 07/28/2024 06:20 PM Oxygen Saturation (33158-5) 95 % Respiratory Rate (9279-1) 20 /min Heart Rate (8867-4) 78 /min Blood Pressure Systolic (8480-6) 151 mm[Hg] Blood Pressure Diastolic (8462-4) 84 mm[Hg] 07/28/2024 12:52 PM Oxygen Saturation (70358-6) 96 % Respiratory Rate (9279-1) 18 /min Heart Rate (8867-4) 89 /min Blood Pressure Systolic (8480-6) 124 mm[Hg] Blood Pressure Diastolic (8462-4) 68 mm[Hg] 07/27/2024 11:27 AM Body Height (8302-2) 70 [in_us] 07/14/2024 08:24 AM Body Weight (22941-3) 194 [lb_av] Body Mass Index (55468-7) 27.83 kg/m2 07/12/2024 01:33 PM Body Weight (32795-6) 199.2 [lb_av ] Body Mass Index (16476-3) 28.58 kg/m2 07/05/2024 01:47 PM Body Weight (62879-7) 198.5 [lb_av ] Body Mass Index (25651-5) 28.48 kg/m2 07/04/2024 02:00 PM Body Weight (25304-0) 198.2 [lb_av ] Body Mass Index (57717-9) 28.44 kg/m2 10/12/2024 09:50 PM Temperature (8310-5) 98.2 [degF] Oxygen Saturation (79476-4) 97 % Respiratory Rate (9279-1) 20 /min Heart Rate (8867-4) 72 /min Blood Pressure Systolic (8480-6) 126 mm[Hg] Blood Pressure Diastolic (8462-4) 68 mm[Hg] 10/18/2024 10:37 PM Body Weight (10291-0) 193.2 [lb_av ] Body Mass Index (65314-9) 27.72 kg/m2 11/04/2024 11:10 AM Temperature (8310-5) 97.4 [degF] Oxygen Saturation (99485-5) 94 % Respiratory Rate (9279-1) 18 /min Heart Rate (8867-4) 58 /min Blood Pressure Systolic (8480-6) 134 mm[Hg] Blood Pressure Diastolic (8462-4) 66 mm[Hg] 11/12/2024 10:16 PM Temperature (8310-5) 98 [degF] Oxygen Saturation (18720-4) 98 % Respiratory Rate (9279-1) 20 /min Heart Rate (8867-4) 71 /min Blood Pressure Systolic (8480-6) 155 mm[Hg] Blood Pressure Diastolic (8462-4) 85 mm[Hg] 11/14/2024 01:52 PM Body Weight (80770-3) 181 [lb_av] Body Mass Index (38172-8) 25.97 kg/m2 11/17/2024 01:37 PM Body Weight (95909-5) 178.4 [lb_av ] Body Mass Index (37850-2) 25.59 kg/m2 11/27/2024 06:31 PM Temperature (8310-5) 98.4 [degF] Oxygen Saturation (03451-3) 95 % Respiratory Rate (9279-1) 20 /min Heart Rate (8867-4) 80 /min Blood Pressure Systolic (8480-6) 128 mm[Hg] Blood Pressure Diastolic (8462-4) 88 mm[Hg] 12/12/2024 01:22 AM Temperature (8310-5) 98.3 [degF] Oxygen Saturation (39950-1) 98 % Respiratory Rate (9279-1) 18 /min Heart Rate (8867-4) 84 /min Blood Pressure Systolic (8480-6) 140 mm[Hg] Blood Pressure Diastolic (8462-4) 64 mm[Hg] 12/14/2024 02:32 PM Body Weight (63770-3) 183 [lb_av] Body Mass Index (12755-3) 26.25 kg/m2 12/22/2024 02:10 PM Body Weight (57999-2) 183 [lb_av] Body Mass Index (34337-3) 26.25 kg/m2 12/29/2024 02:21 PM Body Weight (60639-7) 180.6 [lb_av ] Body Mass Index (87799-3) 25.91 kg/m2 01/05/2025 10:52 AM Body Weight (87745-1) 182.2 [lb_av ] Body Mass Index (48988-3) 26.14 kg/m2 01/07/2025 07:44 AM Body Weight (07369-9) 178.8 [lb_av ] Body Mass Index (35016-4) 25.65 kg/m2 01/10/2025 02:53 PM Body Weight (28113-0) 179.4 [lb_av ] Body Mass Index (94752-9) 25.74 kg/m2 01/16/2025 10:08 PM Temperature (8310-5) 97.2 [degF] Oxygen Saturation (12302-4) 95 % Respiratory Rate (9279-1) 18 /min Heart Rate (8867-4) 74 /min Blood Pressure Systolic (8480-6) 141 mm[Hg] Blood Pressure Diastolic (8462-4) 66 mm[Hg] 01/26/2025 02:01 PM Body Weight (04288-2) 181 [lb_av] Body Mass Index (18948-2) 25.97 kg/m2 02/09/2025 10:19 AM Body Weight (75747-3) 185 [lb_av] Body Mass Index (12920-2) 26.54 kg/m2 02/09/2025 07:13 PM Temperature (8310-5) 98.4 [degF] Oxygen Saturation (97495-2) 97 % Respiratory Rate (9279-1) 16 /min Heart Rate (8867-4) 84 /min Blood Pressure Systolic (8480-6) 134 mm[Hg] Blood Pressure Diastolic (8462-4) 72 mm[Hg] 02/12/2025 03:09 PM Temperature (8310-5) 98.1 [degF] Oxygen Saturation (79031-4) 100 % Respiratory Rate (9279-1) 18 /min Heart Rate (8867-4) 61 /min Blood Pressure Systolic (8480-6) 160 mm[Hg] Blood Pressure Diastolic (8462-4) 78 mm[Hg] Social History No smoking Hx information available Encounters Type CPT Code Date Location Provider Indication s encounter report 07/01/2024 10:41 PM Virgilio Orozco MD Advance Directives Directive Description Verification Date Supporting Document(s) Other Directive
--- OUTSIDE RECORDS SUMMARY | 2025-04-05 12:55 | XMS_ITS | Clinical Summary ---
Author Organization [facility] Address [address] [place] [address] Phone Care Team Providers Care Circus Trainer Name Role Phone Unavailable Primary Care Provider Unavailabl e Social History Tobacco Use Types Packs/Day Years Used Date Smoking Tobacco: Never Assessed Sex and Gender Information Value Date Recorded Sex Assigned at Not on file Legal Sex Male 10:25 AM EST Gender Identity Not on file Sexual Orientation Not on file Plan of Treatment Not on file
--- OUTSIDE RECORDS SUMMARY | 2025-04-05 12:55 | XMS_ITS | Encounter Summary ---
Author Organization [facility] Address [address] [place] [address] Care Team Providers Care Marine Designer Name Role Phone Sylwia Marialuisa DO Unavailable [phone] Encounter Details Date Type Department Care Team (Late st Contact Info) Description 07/20/2024 Abstract [facility] [address] [place] [id number] Unallocated, [facility], [address] [place] [address] Social History Tobacco Use Types Packs/Day Years Used Date Smoking Tobacco: Never Assessed Sex and Gender Information Value Date Recorded Sex Assigned at Not on file Legal Sex Male 6:52 PM EDT Gender Identity Not on file Sexual Orientation Not on file documented as of this encounter Plan of Treatment Not on file documented as of this encounter Visit Diagnoses Not on filedocumented in this encounter Care Teams Marine Designer Relationship Specialty Start Date End Date Marialuisa Dao DO [address] [place] [address] Referring Physician Neurology 01/12/25 documented as of this encounter
--- OUTSIDE RECORDS SUMMARY | 2025-04-05 12:55 | XMS_ITS | Clinical Summary ---
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); Left spastic hemiparesis (HCC); Seizure-like activity (HCC); Aphasia; Dysphagia, unspecified type; Deep vein thrombosis (DVT) of proximal vein of both lower extremities, unspecified chronicity (HCC) 02/16/2025 Bamboo flowsheet [facility] [address] [phone] Esther Walls PA 02/08/2025 Telephone [place] [id number] [phone] Talya Frost LPN New start Botox pa needed 01/25/2025 10:00 AM EDT Ancillary Procedure [facility] [address] [phone] Cerebral infarction due to occlusion of right anterior cerebral artery (HCC); Seizure-like activity (HCC) 01/12/2025 10:45 AM EDT Office Visit [facility] [address] [phone] Marialuisa Dao DO Cerebral infarction due to occlusion of right anterior cerebral artery (HCC) (Primary Dx); 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); Left spastic hemiparesis (HCC); Seizure-like activity (HCC); Aphasia; Dysphagia, unspecified type; Deep vein thrombosis (DVT) of proximal vein of both lower extremities, unspecified chronicity (HCC) 01/12/2025 [employer] flowsheet [facility] [address] [place] [phone] Marialuisa Dao DO from Last 3 Months Social History Tobacco Use Types Packs/Day Years Used Date Smoking Tobacco: Never Assessed Sex and Gender Information Value Date Recorded Sex Assigned at Not on file Legal Sex Male 6:52 PM EDT Gender Identity Not on file Sexual Orientation Not on file Last Filed Vital Signs Vital Sign Reading Time Taken Comments Blood Pressure 118/72 01/12/2025 10:45 AM EDT Pulse 62 02/16/2025 10:27 AM EDT Temperature - - Respiratory Rate 16 02/16/2025 10:27 AM EDT Oxygen Saturation 97% 02/16/2025 10:27 AM EDT Inhaled Oxygen Concentration - - Weight 83.9 kg (185 lb) 02/16/2025 10:27 AM EDT Height 177.8 cm (5' 10 ) 02/16/2025 10:27 AM EDT Body Mass Index 26.54 02/16/2025 10:27 AM EDT Plan of Treatment Health Maintenance Due Date Last Done Comments CT Colonography 1957 Colonoscopy 1957 Colorectal Cancer Screening 1957 FIT-DNA 1957 FIT 1957 FOBT 1957 Sigmoidoscopy 1955 Pneumococcal Vaccine: 65+ Years Completed Influenza Vaccine Completed 07/27/2024, , 2022, Additional history exists Procedures Procedure Name Priority Date/Time Associated Diagnosis Comments [facility] EEG INCLUDING RECORDING AWAKE AND ASLEEP Routine 01/25/2025 10:39 AM EDT Cerebral infarction due to occlusion of right anterior cerebral artery (HCC) Seizure-like activity (HCC) from Last 3 Months Results * EEG, Including Recording Awake or Asleep (01/25/2025 10:39 AM EDT) Jacob Toledo MD - 01/26/2025 1:58 PM EDT Interpreting physician: Jacob Glover MD EEG #: [id number] This is a routine EEG performed on a 69 year old male using standard 10-20 lead placement and then [employer] system. All data was obtained digitally and is available for reformatting and re-montage. There is a posterior dominant rhythm in the 9 hertz range recorded in the occipital leads symmetrically during restful wakefulness. This rhythm attenuates with eye opening. There is beta activity in the 15-20 hertz range less than 20 microvolt amplitude range recorded in the fronto-central regions intermittently and symmetrically throughout the record. There is attenuation of the background rhythm, rolling eye movements, attenuation of muscle artifact, generalized slowing, consistent with stage 1 sleep which occurred in approximately 15 percent of the record. There is no photic driving or abnormal waveforms recorded with photic stimulation performed at multiple frequencies. There is no epileptiform activity recorded during the record. There are no seizures recorded during the record. There is no abnormal slowing recorded during the record. Impression: This is a normal routine EEG. If there is a strong clinical suspicion for seizures then repeat study or long-term monitoring may be indicated. Marialuisa Dao DO NEUROLOGY ORDERABLES Final Resu lt from Last 3 Months Insurance MEDICAID [place] AARP MEDICARE COMPLETE Care Teams Tying In Machine Operator Relationship Specialty Start Date End Date Marialuisa Dao DO [address] [place] [address] Referring Physician Neurology 01/12/25
--- OUTSIDE RECORDS SUMMARY | 2025-04-05 12:55 | XMS_ITS | Encounter Summary ---
Author Organization [facility] Address [address] [place] [address] Care Team Providers Care Crew Clerk Name Role Phone Sylwia Marialuisa DO Unavailable [phone] Encounter Details Date Type Department Care Team (Late st Contact Info) Description 08/23/2024 Abstract [facility] [address] [place] [id number] Unallocated, [facility] Provider, [address] [place] [address] Social History Tobacco Use Types Packs/Day Years [...] on filedocumented in this encounter Care Teams Crew Clerk Relationship Specialty Start Date End Date Marialuisa Dao DO [address] [place] [address] Referring Physician Neurology 01/12/25 documented as of this encounter
--- OUTSIDE RECORDS SUMMARY | 2025-04-05 12:55 | XMS_ITS | Clinical Summary ---
Author Organization [facility] Address [address] [place] [address] Care Team Providers Care High School Math Teacher Name Role Phone Unavailable Primary Care Provider Unavailabl e Social History Tobacco Use Types Packs/Day Years Used Date Smoking Tobacco: Never Assessed Sex and Gender Information Value Date Recorded Sex Assigned at Not on file Legal Sex Male 10:08 AM EDT Gender Identity Not on file Sexual Orientation Not on file Plan of Treatment Not on file
--- OUTSIDE RECORDS SUMMARY | 2025-04-05 12:55 | XMS_ITS | Encounter Summary ---
Author Organization [facility] Address [address] [place] [address] Care Team Providers Care Marine Fireman Name Role Phone Sylwia Marialuisa DO Unavailable [phone] Encounter Details Date Type Department Care Team (Late st Contact Info) Description 08/23/2024 Abstract [facility] [address] [place] [phone] Unallocated, [facility] Provider, [address] [place] [address] Social History Tobacco Use Types Packs/Day Years [...] filedocumented in this encounter Care Teams Marine Fireman Relationship Specialty Start Date End Date Marialuisa Dao DO [address] [place] [address] Referring Physician Neurology 01/12/25 documented as of this encounter
--- OUTSIDE RECORDS SUMMARY | 2025-04-05 12:55 | XMS_ITS | Encounter Summary ---
Author Organization [facility] Address [address] [place] [address] Care Team Providers Care Field Geologist Name Role Phone Sylwia Marialuisa DO Unavailable [phone] Encounter Details Date Type Department Care Team (Late st Contact Info) Description 08/30/2024 Abstract [facility] [address] [place] [id number] Unallocated, Noms Provider, [address] [place] [address] Social History Tobacco Use Types Packs/Day Years [...] on filedocumented in this encounter Care Teams Field Geologist Relationship Specialty Start Date End Date Marialuisa Dao DO [address] [place] [address] Referring Physician Neurology 01/12/25 documented as of this encounter
--- OUTSIDE RECORDS SUMMARY | 2025-04-05 12:55 | XMS_ITS | Patient Health Record ---
Author Organization [facility] vices Address [address] [place], [place] [id number] Care Team Providers Care Entertainer & Comic Name Role Phone Eugenie Farrell Primary Care Provider Zenobia Muniz Unavailable [phone] Sayra Bermudez Unavailable [phone] Allergies Allergen (clinical drug ingredient) Drug/Non Drug Allergy documented on EMR Reaction Allergy Type Onset Date Status penicillin V Penicillin V Potassium Vomiting Drug Allergy 0 07/05/2019 Active Results Component Value Reference Range Notes UDS Hemoglobin A1C Reviewed date:05/24/2024 04:29:33 PM Interpretation: Performing Lab: Notes/Report: Reason For Referral No Information Medications Medication SIG (Take, Route, Frequency, Duration) Notes Start Date End Date Status Ozempic (0.25 or 0.5 MG/DOSE) 2 MG/3ML inject 0.5mg Subcutaneous once a week for 90 days Active Atorvastatin Calcium 80 MG TAKE 1 TABLET BY MOUTH AT BEDTIME for 90 Not-Taking Simvastatin 40 MG 1 tablet in the evening Orally Once a day for 90 days 01/13/2023 Active metFORMIN HCl 500 MG take 2 tablets by mouth twice a day with meals for 90 Active Losartan Potassium 100 MG take 1 tablet by mouth once daily for 90 Active Clopidogrel Bisulfate 75 MG take 1 tablet by mouth once daily for 90 Active Metoprolol Tartrate 50 MG take 1 tablet by mouth twice a day with food for 90 Active Sertraline HCl 50 MG take 1 AND 1/2 tablets by mouth once daily for 90 Active Ozempic (1 MG/DOSE) 4 MG/3ML 1mg Subcutaneous once a week 12/12/2021 Not-Taking Meclizine HCl 25 MG 1 tablet as needed Oral once a day Not-Taking OneTouch Delica Plus [id number] - for 100 Active Blood Glucose Test Strip - 1 strip In Vitro once a day Infinity strips. 12/12/2021 Active OneTouch Verio Flex System w/Device for 1 Active Immunizations Vaccine Route Administration Date Status Comme nts COVID-19 (Pfizer)-Private Unknown 12/19/2020 Administered COVID-19 (Pfizer)-Private Unknown 01/08/2021 Administered COVID-19 (Pfizer)-Private Unknown 07/11/2021 Administered Influenza (split), 3 yrs and above OTH Other/Miscellan eous 05/18/2014 Administered Status:Complete ,Reason:Given or N/A ,See scanned document Influenza (split), 3 yrs and above OTH Other/Miscellan eous 05/31/2019 Administered Status:Complete ,Reason:Given or N/A Influenza, quadrivalent (IIV4), split virus, 6-35 months dosage OTH Other/Miscellan eous 06/21/2020 Administered Status:Complete ,Reason:Given or N/A Influenza, quadrivalent, split, preservative free, 3 years or older OTH Other/Miscellan eous 06/30/2021 Administered Status:Complete ,Reason:Given or N/A ,see scanned document - [place] Zoster OTH Other/Miscellan eous 05/18/2014 Administered Status:Complete ,Reason:Given or N/A ,See scanned document Social History Tobacco Use: Social History Observation Description Date Details (start date - stop date) Never Smoker NA - NA Sex Assigned At : Social History Observation Description Sex Assigned At Male Household Question Answer Notes Number of adults in household: 2 Tobacco Use/Smoking Question Answer Notes Tobacco use: nonsmoker Problems Problem Type SNOMED Code ICD Code Onset Dates Problem Status W/U Status Risk Notes Problem Type II diabetes mellitus without complication (350548156) Type 2 diabetes mellitus without complication, without long-term current use of insulin (E11.9) Active confirmed Problem 08235532 Coronary artery disease involving [place] heart without angina pectoris, unspecified vessel or lesion type (I25.10) Active confirmed Problem Essential hypertension (60264263) Essential (primary) hypertension (I10) Active confirmed Comment:Patient refuses HCTZ. Will d/c HCTZ and start amlodipine for increased BP control. C/w at-home BP monitoring, call if BP is consistently >140/90 Check labs. F/u in 3 months.,Descrip tion:Essential hypertension Problem 696398320 Dorsalgia, unspecified (M54.9) Active confirmed Comment:Chronic low back pain worse on the right side + Right hip pain + Right knee pain. No focal neuro deficits No bowel or bladder dysfucntion Decresed ROM of the right hip and right knee ++coarse cerpitus of the right knee and mild effusion without signs of Septic arthritis. PLAN: 1. Discussed the condition with patient advised that he most likely has Osteoarthritis of the knee and hips and possibly low back DDD. Advised to get Xrays of the right knee and hip and lower lumbar spine. Start Naproxen and Flexeril. Physical therapy and warm aquatics Follow up in few weeks and if not better will need Intra-artricula r knee steroid injection vs referral to orthopedics., Problem Seasonal allergy (293133819) Environmental and seasonal allergies (J30.89) Active confirmed Comment:-Possib ly allergic rhinitis -Increase exposure to smoking son-in-law causing worsening symptoms -Normal PE -Will try trial of cetirizine, Problem Vertigo (950422300) Vertigo (R42) Active confirmed Comment:episode s of spinning w/ some nausea, responded to meclizine continue with meclizine as needed monitor frequency + length., Problem Gastroesophageal reflux disease (780734500) GERD (gastroesophage al reflux disease) (K21.9) Active confirmed Problem Hyperlipidemia (85618534) Hyperlipidemia (E78.5) Active confirmed Comment:Patient with statin allergy (throat swelling). TC 230, TG 373, HDL 35, LDL 120. Per patient he is sometimes: taking flax seed oil. Until next appt in 01/2013, will instruct to take 4 tabs of the flax seed oil DAILY. ALSO, low fat diet. Recheck prior to 01/2013 appt., Problem Type II diabetes mellitus (13843953) Type II diabetes mellitus (E11.9) Active confirmed Comment:overdue for A1c, has been a year. overdue for other labs as well. continue metformin -advised will need to have labs done to continue refilling continue with dietary management. encouraged to make appt for eye exam, Problem Muscle spasm (16229165) Muscle spasm (M62.838) Active confirmed Comment:reports muscle spasm of Left leg sometimes, looks like it is jumping will check electrolytes rec'd regular water intake, regular exercise, Problem Dysphagia (52800788) Trouble swallowing (R13.10) Active confirmed Comment:S/p CVA several years ago, worsening per patient. No pain. + trouble with word articulation also, will check swallow study and start speech therapy, Problem Abnormal feces (631140501) Positive fecal occult blood test (R19.5) Active confirmed Comment:-Had + fecal occult test in 08/2016 -Pt refusing colonscopy; not candidate for cologuard d/t + fecal occult -Denies any blood in stool -Pt attributes to having 2 weeks of diarrhea; states was raw at the time -Has hx of hemorrhoids; declined rectal exam -No family hx of colon cancer -Advised of risks; pt and verified understanding, Problem Chest pain on exertion (08871204) Chest pain on exertion (R07.9) Active confirmed Comment:Chest pain on exertion iand resolves with rest and NTG in a patient with HTN, DM and h/o CVA. Has some components ?GERD BP is high and will add HCTZ PLAN: 1. C/W ASA 2. C/W Beta Blockers 3. C/W ACEi Add HCTZ 4. Check Labs 5. Lexiscan cardiolite stress test., Problem Arthralgia of knee (5947891715) Arthralgia of knee (M25.569) Active confirmed Description:K ne e pain Problem Cerebrovascular accident (700125407) CVA (cerebral infarction) (I63.9) Active confirmed Comment:toño s in his right arm and voice asking today for scooter, will complete form Reported choking on thin liquids occasionally, suspect possible dysphagia Discussed speech therapy to assess, educated on risk of aspiration pneumonia PVU, agreeable to plan, Problem Arthralgia of hip (8500278220) Arthralgia of hip (M25.559) Active confirmed Description:Hi p pain Problem Depression (989204969) Depression (F32.A) Active confirmed Comment:initial improvement w/ SSRI but symptoms increased again. will increase zoloft. short RTC to reassess., Encounters Encounter Location Date Provider Diagnosis [place] [address] [place] [address] 04/19/2024 Zenobia Muniz [address] [place] [id number] 04/19/2024 Zenobia Muniz [place] [address] [facility] [address] [place], [place] [phone] 05/24/2024 Zenobia Muniz Type 2 diabetes mellitus without complication, without long-term current use of insulin E11.9 [place] [address] [facility] [address] [place], [place] [phone] 05/24/2024 Zenobia Muniz Assessments Encounter Date Diagnosis (ICD Code) Assessment Notes Treatment Notes Treatment Clinical Notes Section Notes 05/24/2024 Type 2 diabetes mellitus without complication, without long-term current use of insulin (ICD-10 - E11.9) Plan Of Treatment No Information Insurance Providers Payer Name Payer Address Payer Phone Subscriber Number Group Number Insured Name Patient Relationship to Insured Coverage Start Date Coverage End Date [facility] Dual Medical [facility] [address] [place] [phone] [id number] OHDSRanjeet Braxton Self - patient is the insured 8 Medical (General) History Medical History History ICD Code CVA (cerebral infarction), Depression, Diabetes, GERD (gastroesophageal reflux disease), Hyperlipidemia, Hypertension, Myocardial infarction, COMMENTS: 2019, Type II diabetes mellitus, Surgical History Surgery Date(Month/Year) Cardiac stenting Cataract Extraction-Bilateral Vasectomy
--- NOTE | 2025-04-05 13:22 | PM.CN ---
Consult Note: HPI Data of Consult Patient: new to practice Consult date: 01/02/25 Requesting Physician: Marii Andrews NP Primary Care Provider: ZA ALCALA Consult Narrative Reason for consult: left arm pain Narrative: 69yom who presents for evaluation. notes pain in left arm likely due to contracture. patient has had several strokes and is now nonverbal. saw ortho, who did not think shoulder was culprit. uses pain medicine as needed. cc:: CC: Marii Andrews NP Review of Systems ROS Status of ROS 10 or more systems reviewed and unremarkable except as noted in history and below Meds Home Medications and Allergies Home Medications ?Medication ?Instructions ?Recorded ?Confirmed ?Type acetaminophen 650 mg 650 mg PO Q8H PRN pain 01/03/25 01/03/25 History tablet,extended release (8 Hour Pain Reliever) amlodipine 5 mg tablet 5 mg PO DAILY 01/03/25 01/03/25 History aspirin 81 mg capsule 81 mg PO DAILY 01/03/25 01/03/25 History atorvastatin 40 mg tablet 40 mg PO DAILY 01/03/25 01/03/25 History buspirone 5 mg tablet 5 mg PO TID 01/03/25 01/03/25 History cholecalciferol (vitamin D3) 100 100 mcg PO DAILY 01/03/25 01/03/25 History mcg (4,000 unit) capsule ciprofloxacin 500 mg/5 mL oral 500 mg PO BID 01/03/25 01/03/25 History suspension diclofenac sodium 1 % topical gel 2 g topical QID 01/03/25 01/03/25 History doxazosin 2 mg tablet (Cardura) 2 mg PO DAILY 01/03/25 01/03/25 History famotidine 20 mg tablet 20 mg PO DAILY 01/03/25 01/03/25 History glucagon 1 mg/0.2 mL subcutaneous mg subcut PRN low sugar 01/03/25 History auto-injector glycerin drp ophthalmic (eye) 01/03/25 History insulin glargine 100 unit/mL (3 10 unit subcut .hs 01/03/25 01/03/25 History mL) subcutaneous pen (Lantus Solostar U-100 Insulin) insulin glargine-aglr 100 unit/mL 10 unit subcut QPM 01/03/25 01/03/25 History (3 mL) subcutaneous pen (Rezvoglar KwikPen) insulin lispro 100 unit/mL 1 sliding scale dose subcut 01/03/25 01/03/25 History subcutaneous pen USEASDIRECTD ipratropium 0.5 mg-albuterol 3 mg 3 ml inhalation QID PRN shortness 01/03/25 01/03/25 History (2.5 mg base)/3 mL nebulization of breath soln levetiracetam 500 mg tablet 500 mg PO DAILY 01/03/25 01/03/25 History (Keppra) losartan 100 mg tablet mg 01/03/25 History melatonin 10 mg capsule 10 mg PO DAILY 01/03/25 01/03/25 History oxycodone-acetaminophen 5 mg-325 1 tab PO Q6H PRN pain 01/03/25 01/03/25 History mg tablet (Percocet) paroxetine HCl 10 mg tablet (Paxil) 10 mg PO DAILY 01/03/25 01/03/25 History polyethylene glycol 3350 17 17 g PO DAILY PRN constipation 01/03/25 01/03/25 History gram/dose oral powder (Gavilax) risperidone 0.5 mg tablet 0.5 mg PO DAILY 01/03/25 01/03/25 History (Risperdal) sennosides 8.8 mg/5 mL oral syrup 8.8 mg PO DAILY 01/03/25 01/03/25 History (senna) simethicone 80 mg chewable tablet 80 mg PO QID PRN abdominal 01/03/25 01/03/25 History (Gas Relief (simethicone)) distention trazodone 50 mg tablet 50 mg PO DAILY 01/03/25 01/03/25 History valproic acid 250 mg capsule 250 mg PO TID 01/03/25 01/03/25 History Allergies Allergy/AdvReac Type Severity Reaction Status Date / Time No Known Drug Allergies Allergy Verified 01/03/25 15:26 Exam Narrative Exam Narrative: pt nonverbal ? Skin-no obvious rashes, bruising, or erythema noted to the patient's area of pain. Extremities-upper extremities are warm with minimal edema and palpable pulses. unable to perform active ROM exercises in LUE Cervical- tenderness to palpation noted in the cervical spine and paraspinal musculature.?? Range of motion is slightly diminished due to pain. Assessment and Plan Assessment and Plan (1) Contracture of muscle, left upper arm: (2) Myofascial pain: (3) Biceps tendinitis: (4) Chronic pain of left upper extremity: Plan 69yom who presents for evaluation. failed conservative measures, as noted. continue baclofen. start transdermal therapeutics cream 6a TID, start zynex tens with IFC 10minutes BID. continue ROM exercises. f/u 1 month
== END 2025-04-05 12:51 | disposition home or self-care (01) ==
LOC: PM 12:51
PROVIDERS: PCP Family Medicine; Visit Provider Nurse Practitioner
DX: M62.422 Contracture of muscle, left upper arm (principal); M75.22 Bicipital tendinitis, left shoulder; M79.622 Pain in left upper arm
CPT/HCPCS: G0463

== ENCOUNTER 2025-05-10 12:30 | Outpatient (OUT) | payer MEDICARE, MEDICAID, SELFPAY ==
--- OUTSIDE RECORDS SUMMARY | 2024-01-13 09:30 | XMS_ITS ---
Author Organization [facility] vices Address [address] [place] [id number] Care Team Providers Care Mri Manager Name Role Phone Eugeine Farrell Primary Care Provider [phone] Sayra Bermudez [phone] REASON FOR VISIT DM/Anxiety Social History Sex Assigned At : Social History Observation Description Sex Assigned At Male Encounters Encounter Location Date Provider Diagnosis Main [address] [place] [id number] 01/13/2024 Sayra Bermudez Plan Of Treatment No Information Progress Notes * Wendy MEDELLINOB:[birth year] (69 yo M)Acc No.[id number]:01/13/2024 Medical Note Patient: Ranjeet BEAUCHAMP Provider: Abdulaziz Bermudez NP :1955 A ge:68 Y S ex:Male Date:01/13/2024 Address:[address] [place] [address], [address], [place], [id number] Pcp:Eugenie Farrell Subjective: * Chief Complaints: * 1 . DM/Anxiety. * Medical History: Objective: * Vitals: Assessment: Plan: * Treatment: * Billing Information: * Visit Code: * Procedure Codes: * Electronic signature of Timothy Bermudez NP on 05/10/2025 at 12:33 PM EDT Sign off status: Pending * Provider: Abdulaziz Bermudez NP Date: 0 01/13/2024 Generated for Cuca hernandez/Mark/Almaz on: 0 05/10/2025 12:33 PM EDT
--- OUTSIDE RECORDS SUMMARY | 2024-04-07 11:30 | XMS_ITS ---
Author Organization [facility] vices Address [address] [place] [id number] Care Team Providers Care Satellite Television Installer Name Role Phone Eugenie Farrell Primary Care Provider [phone] Sayra Bermudez [phone] REASON FOR VISIT DM, anxiety Social History Sex Assigned At : Social History Observation Description Sex Assigned At Male Encounters Encounter Location Date Provider Diagnosis Main [address] [place] [id number] 04/07/2024 Sayra Bermudez Plan Of Treatment No Information Progress Notes * Wendy MEDELLINOB:[birth year] (69 yo M)Acc No.[id number]:04/07/2024 Medical Note Patient: Ranjeet BEAUCHAMP Provider: Abdulaziz Bermudez NP :1955 A ge:68 Y S ex:Male Date:04/07/2024 Address:Formerly [facility], [address], [place], [id number] Pcp:Eugenie Farrell Subjective: * Chief Complaints: * 1 . DM, anxiety. * Medical History: Objective: * Vitals: Assessment: Plan: * Treatment: * Billing Information: * Visit Code: * Procedure Codes: * Electronic signature of Timothy Bermudez NP on 05/10/2025 at 12:33 PM EDT Sign off status: Pending * Provider: Abdulaziz Bermudez NP Date: 0 04/07/2024 Generated for Cuca hernandez/Mark/Almaz on: 0 05/10/2025 12:33 PM EDT
--- OUTSIDE RECORDS SUMMARY | 2025-05-08 07:05 | XMS_ITS | Continuity of Care Document ---
Author Organization [facility] Address [address] [place] [address] Phone Care Team Providers Care Production Analyst Name Role Phone Ariane Estevez APRN Attending Provider [phone] Jerrod Orozco MD Primary Care Provider Care Teams Patient Care Team Team Status: Active Member Role Status Dates Jerrod Orozco MD Primary Care Provider Active Patient Care Team Team Status: Inactive Member Role Status Dates Ariane Estevez APRN Attending Provider Active Start: May 08, 2025 End: May 08, 2025 Jerrod Orozco MD Primary Care Provider Active S tart: May 08, 2025 End: May 08, 2025 Chief Complaint and Reason for Visit Chief Complaint Admit Date 8 Week Follow up May 08, 2025 9:48 am Reason for Visit Admit Date Muscle cramping May 08, 2025 9:48 am Seizures May 08, 2025 9:48 am Cerebrovascular accident (CVA) April 9:48am Reason for Referral Referring Provider Name Referring Provider Address Referring Provider Phone Referral Date Requested Appointment Date Referral Reason Megan Garner [address] [address] Work Phone: May 08, 2025 R25.2 - Cramp and spasm May 08, 2025 R25. 2 - Cramp and spasm Allergies, Adverse Reactions, Alerts Allergen Type Severity Reaction Last Updated Verified Status No Known Allergies Allergy Unknown May 08, 2025 10:33 am Yes Active Social History Smoking Status Unknown if ever smoked Observation Status Observation Response Date of Response Legal Sex Male (finding) Sex Assigned At Male [birth year] Problems Active Problems Medical Problem Onset Date Status Muscle cramping Unknown Active Medications Medication Status Dose Units Route Directions Qty Days St art Date Stop Date End Date Instructions Adherence Baclofen 10 mg/5 mL (2 mg/mL) solution Active 10 MG PO Three times daily 473 May 08, 2025 12:00a m Complies with drug therapy Vital Signs Vital Reading Result Reference Range Collection Date/Time Weight 86.40 kg May 08, 2025 10:23am Heart Rate 61 /min 60-100 May 08, 2025 10:23am BP Systolic 121 mm[Hg] 100-140 May 08, 2025 10:23am BP Diastolic 106 mm[Hg] 60-100 May 08, 2025 10:23am Advance Directives Advance Directive Response Recorded Date/ Time Advance Directives No March 14 12:01pm Insurance Providers Guarantor Ranjeet Mcneil Address [facility] [address] Contact Info. Home Phone: Payer Policy Id Subscriber's Name Subscriber Id Ken ctive Date Expiration Date Medicaid [id number] Ranjeet Mcneil [id number] [facility] Medicare Advantage [facility] [id number] Ranjeet Mcneil [id number] Encounters Encounter Location(s) Arrival/Admit Date Discharge/Depart Date Provider(s) Departed Physician/Prov ider Office Visit -[facility] Neurology [place] May 08, 2025 9:48am May 08, 2025 11:03am Megan Garner APRN Recent Diagnosis Onset Date Admit Date Muscle cramping Unknown May 08, 2025 9:48am Seizures Unknown May 08, 2025 9:48am Cerebrovascular accident (CVA) Unknown J alyssa 2024 9:48am Assessments Diagnosis Onset Date Resolution Status Admit Date Muscle cramping acute April 9:48am Seizures noneactive May 08 9:48am Cerebrovascular accident (CVA) nonea ctive May 08, 2025 9:48am Plan of Treatment Author Ariane Estevez [facility] Authored May 08, 2025 10:4 8am 69-year-old complicated male . Patient has a history of diabetes, coronary artery disease, [place] and previous ischemic infarcts. Per significant other he became noncompliant with his medications as he was feeling good and did not stay on his regular blood thinner/ antiplatelet Patient suffered a large right EMILIA infarct in May with A2 occlusion and partial thrombus in the proximal A2. 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 Patient had complications of pneumonia and dysphagia requiring a PEG tube. He has extensive aphasia both receptive and expressive. He developed bilateral lower extremity DVT. He was initially started on anticoagulation but suffered a hemorrhagic bleed in the right parietal lobe. He then had an IVC filter placed. Patient then was having episodes of staring spells that were suspicious for seizure. He ended up having epilepsy monitoring at [facility] that was negative for seizure but showed the structural lesion in the right hemisphere. He continues to have these staring spells but no true convulsive activity. Repeat EEG completed here was normal. He did see vascular who has questioning removing the IVC filter and potentially putting him on anticoagulation. I will request recent progress notes from Dr. Sabillon to figure out why he would want to do that. With the previous hemorrhage and the extensive changes in the brain he will always be at risk for increased hemorrhage However I am not sure how long they can keep the filter in and if there is some timeframe in which they need to remove it. He does have left spastic hemiparesis and he has been submitted for Botox injections. He just had a muscle relaxer started to see if this is helpful. He has pain from the spasticity. He follows with pain management, which is who is currently prescribing the muscle relaxer. Plan -I will request recent cardiology note from Dr. Sabillon regarding plan for whether IVC filter will be removed. If it can not stay on indefinitely, then we may need to change treatment plan Botox injections for left upper extremity spasticity pending insurance approval Continue with the PEG tube and speech therapy Continue with control of the secondary stroke risk factors He is on asa and statin daily Continue valproic acid 500 mg TID -Continue with the antiplatelet therapy The diagnosis was all discussed with the patient. All questions were answered and they agreed with the treatment plan. Patient will call if there are any new issues or questions. Return to clinic: 2-3 months Future Tests Future scheduled test information is unavailable Pending Tests Pending diagnostic test information is unavailable Future Visits Future appointment information is unavailable Referrals to Other Providers Reason for Referral Referral Start Date Provider Provider Contact Information Provider Address R25.2 - Cramp and spasm May 08, 2025 Determined by Patient Future Procedures Future procedure information is unavailable Future Medications Future medication information is unavailable Patient Instructions Patient instructions are unavailable
--- OUTSIDE RECORDS SUMMARY | 2025-05-10 12:33 | XMS_ITS | Clinical Summary ---
Author Organization [facility] Address [address] [place] [address] Phone Care Team Providers Care Software Security Architect Name Role Phone Unavailable Primary Care Provider [...]
--- OUTSIDE RECORDS SUMMARY | 2025-05-10 12:33 | XMS_ITS | Clinical Summary ---
Author Organization [facility] tem Address [id number] [address] [place] [address] Care Team Providers Care Completion Supervisor Name Role Phone Unavailable Primary Care Provider Unavailabl e Allergies No known active allergies Medications amLODIPine (NORVASC) 5 mg tablet Take 1 tablet (5 mg total) by mouth in the morning. 4 Active atorvastatin (LIPITOR) 40 mg tablet Administer 1 tablet (40 mg total) per tube nightly. 4 Active bacitracin 500 unit/gram packet Apply 1 Application topically in the morning and 1 Application before bedtime. 4 Active Additional Information Patient not taking.Reported on 01/12/2025 cholecalciferol , vitamin D3, (VITAMIN D3) 5,000 units capsule Administer 1 capsule (5,000 Units total) per tube in the morning. 4 Active famotidine (PEPCID) 20 mg tablet Administer 1 tablet (20 mg total) per tube in the morning and 1 tablet (20 mg total) before bedtime. 4 Active insulin lispro (HumaLOG) 100 unit/mL insulin pen Inject 23 Units under the skin every 4 (four) hours. 4 Active Additional Information Patient not taking.Reported on 01/12/2025 insulin lispro (HumaLOG) 100 unit/mL insulin pen Inject 2-10 Units under the skin every 4 (four) hours. 4 Active glucagon HCL 1 mg/mL injection Inject 1 mL (1 mg total) into the appropriate muscle as needed for low blood sugar (blood glucose less than 70 mg/dL and unconscious or NPO without IV access.). 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 4 Active losartan (COZAAR) 100 mg tablet Administer 1 tablet (100 mg total) per tube in the morning. 4 Active melatonin (CIRCADIN) 5 mg tablet Take 1 tablet (5 mg total) by mouth nightly. 4 Active metoprolol tartrate (LOPRESSOR) 25 mg tablet Administer 1 tablet (25 mg total) per tube in the morning and 1 tablet (25 mg total) before bedtime. 4 Active polyethylene glycol (GLYCOLAX) 17 gram packet Administer 17 g per tube in the morning. 4 Active sennosides 8.8 mg/5 mL syrup Administer 5 mL (8.8 mg total) per tube nightly. 4 Active QUEtiapine (SEROquel) 25 mg tablet Take 1 tablet (25 mg total) by mouth in the morning and 1 tablet (25 mg total) before bedtime. Active traZODone (DESYREL) 50 mg tablet Take 1 tablet (50 mg total) by mouth nightly. Active acetaminophen (TYLENOL EXTRA STRENGTH) 500 mg tablet Take 1 tablet (500 mg total) by mouth every 8 (eight) hours as needed for pain. Active busPIRone (BUSPAR) 5 mg tablet Take 1 tablet (5 mg total) by mouth 3 (three) times a day. Active LORazepam (ATIVAN) 0.5 mg tablet Take 1 tablet (0.5 mg total) by mouth every 8 (eight) hours as needed for anxiety. Active PARoxetine (PAXIL) 10 mg tablet 4 Active risperiDONE (RisperDAL) 1 mg tablet 4 Active valproate (DEPAKENE) 250 mg/5 mL syrup 4 Active aspirin 81 mg Take 1 tablet (81 mg total) by mouth in the morning. 4 09/07/20 25 Active levETIRAcetam (KEPPRA) 100 mg/mL solution Take 10 mg/kg by mouth in the morning and 10 mg/kg before bedtime. Active baclofen (LIORESAL) 10 mg tablet Take 1 tablet (10 mg total) by mouth 3 (three) times a day. 5 Active diclofenac sodium (VOLTAREN ARTHRITIS PAIN) 1 % gel Apply 2 g topically 3 (three) times a day. 5 Active propylene glycol-glycerin (ARTIFICIAL TEARS,GLYCERIN- PEG,) 1-0.3 % drops ophthalmic solution Administer 1 drop to both eyes 4 (four) times a day as needed for dry eyes. 4 Active REZVOGLAR KWIKPEN 100 unit/mL (3 mL) insulin pen Inject 10 Units under the skin nightly. 5 Active oxyCODONE-aceta minophen (PERCOCET) 5-325 mg per tablet Take 1 tablet by mouth every 6 (six) hours as needed. Max Daily Amount: 4 tablets 4 Active simethicone (GAS RELIEF 80, SIMETHICONE,) 80 mg chewable tablet Chew 1 tablet (80 mg total) and swallow every 6 (six) hours as needed for flatulence. 4 Active Active Problems Problem Noted Date Diagnosed Date Presence of IVC filter 01/12/2025 Assessment & Plan (01/12/2025 9:55 AM EDT): We will get D-dimer. Will get okay from neurology to remove the filter and start him on anticoagulation Prophylactic dose. Acute deep vein thrombosis ( DVT) of distal vein of both lower extremities 06/23/2024 Assessment & Plan (07/14/2024 9:08 AM EDT): Compression stockings leg elevation follow-up in 6 months to evaluate for IVC filter retrieval. Currently he can be on blood thinners and he has acute DVT and he has an IVC filter. 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 This seems to be cardioembolic and hemorrhagic. Continue follow-up with neurology cardiology and continue rehab Dysphagia 06/06/2024 Myocardial infarction Immunizations Immunization Administration Dates Next Due Influenza (IM) Preservative Free 07/01/2017,05/12 Influenza Vaccine, Quadrivalent, Adjuvanted 05/13 Influenza, High-dose, Quadrivalent 2022 Influenza, Im Trivalent Preservative 05/31/2019 Influenza, Injectable, quadrivalent (PF) 021,06/21/2020 Pneumococcal Conjugate 20-valent 06/11/2023 Tdap 11/15/2016,05/25/2015 Zoster Vaccine Recombinant 06/11/2023 Social History Tobacco Use Types Packs/Day Years Used Date Smoking Tobacco: Never Smokeless Tobacco: Never Tobacco Cessation:Counseling Given: Not Answered Alcohol Use Standard Drinks/Week Comments Not Currently 0 (1 standard drink = 0.6 oz pur e alcohol) [facility] [employer] Answer Date Recorded In the past 12 months has [employer], gas, oil, or water [employer] threatened to shut off services in your home? Patient unable to answer 06/06/2024 AUDIT-C Answer Date Recorded Q1: How often do you have a drink containing alcohol? Never 06/06/2024 Q2: How many drinks containi ng alcohol do you have on a typical day when you are drinking? Patient does not drink Frequency of Binge Drinking Not on file 05/13 PHQ-2 Answer Date Recorded Total Score 0 11/30/2024 PRAPARE - Transportation Answer Date Re corded In the past 12 months, has l ack of transportation kept you from medical appointments or from getting medications? Patient unable to answer 06/06/2024 In the past 12 months, has l ack of transportation kept you from meetings, work, or from getting things needed for daily living? Patient unable to answer 06/06/2024 Housing Instability Answer Date Recorde d Are you worried or concerned that in the next two months you may not have stable housing that you own, rent or stay in as a part of a household? Patient unable to answer 06/06/2024 Childcare Answer Date Recorded Childcare Unknown 03/23/2019 Employment Answer Date Recorded Employment Unknown 03/23/2019 Hunger Screening Answer Date Recorded Within the past 12 months we worried whether our food would run out before we got money to buy more. Never True 01/12/2025 Within the past 12 months th e food we bought just didn't last and we didn't have money to get more. Never True 01/12/2025 Purpose - Life Answer Date Recorded Purpose and direction in life Unknown Sex and Gender Information Value Date Recorded Sex Assigned at Not on file Legal Sex Male 11:59 AM EDT Gender Identity Not on file Sexual Orientation Not on file Last Filed Vital Signs Vital Sign Reading Time Taken Comments Blood Pressure 118/72 01/12/2025 8:12 AM EDT Pulse 63 01/12/2025 8:12 AM EDT Temperature 36.8 C (98.2 F) 01/12/2025 8:12 AM EDT Respiratory Rate 23 07/01/2024 11:52 AM EDT Oxygen Saturation 98% 01/12/2025 8:12 AM EDT Inhaled Oxygen Concentration - - Weight 81.4 kg (179 lb 6.4 oz) 01/12/2025 8:12 A M EDT Height 172.7 cm (5' 8 ) 01/12/2025 8:12 AM EDT Body Mass Index 27.28 01/12/2025 8:12 AM EDT Plan of Treatment Health Maintenance Due Date Last Done Comments Diabetic Ophthalmology Exam 1955 Adult BMI Follow Up Plan 1975 Diabetic Foot Exam 1975 Fall Risk Screening 2022 Zoster (Shingles) Vaccine (3 of 3) 08/06/20232022, 05/18/2014 COVID-19 Vaccine (2023-2 5 season) 2024 07/15/2023, 2022, 01/15/2022, Additional history exists Influenza Vaccine 06/12/2025 07/27/2024, , 2022, Additional history exists Depression Screening 11/30/2025 11/30/2024 Tobacco Screening 11/30/2025 11/30/2024 Adult BMI Screening 01/12/2026 01/12/2025 DTaP,Tdap and Td Vaccines (3 - Td or Tdap) 11/15/2026 11/15/2016, 05/25/2015 Goals Goal Patient Goal Type Associated Problems Recent Progress Patient-Stated? Author <enter goal here> General Yes Beatrice Aceves LSW Note: Evaluation of progress towards goal: pt will likely need SNF vs IPR pending progress Medical Devices Implanted Type Area Batch Freezer Device Identifier Shelf Expiration Date Model / Serial / Lot Filter Embl 49mm 65cm Vc Rdpq Preld Flsh Sdprt Intro Strl Rpl [id number] - [id number] Implanted:Qty: 1 on 06/24/2024 by Sari Velasquez MD at [facility] IVC Filter [employer] [id number] 04/12/2027 [id number] / / [id number] Insurance MEDICAID [place] UNITED[employer]ARE MEDICARE Advance Directives * Full Code (Latest Code Status on File) Date Activated Date Inactivated Comments 06/07/2024 8:12 AM 07/01/2024 6:54 PM
--- OUTSIDE RECORDS SUMMARY | 2025-05-10 12:33 | XMS_ITS | Encounter Summary ---
Author Organization [facility] Address [address] [place] [address] Care Team Providers Care Marketing Compliance Manager Name Role Phone Sylwia Marialuisa DO Unavailable [phone] Encounter Details Date Type Department Care Team (Late st Contact Info) Description 08/23/2024 Abstract [facility] [place] [facility] [address] [place] [id number] Unallocated, Noms Provider, [address] [place] [address] Social History Tobacco Use Types Packs/Day Years [...] on filedocumented in this encounter Care Teams Marketing Compliance Manager Relationship Specialty Start Date End Date Marialuisa Dao DO [address] [place] [address] Referring Physician Neurology 01/12/25 documented as of this encounter
--- OUTSIDE RECORDS SUMMARY | 2025-05-10 12:33 | XMS_ITS | Encounter Summary ---
Author Organization [facility] Address [address] [place] [address] Care Team Providers Care Administrative Receptionist Name Role Phone Sylwia Marialuisa DO Unavailable [phone] Encounter Details Date Type Department Care Team (Late st Contact Info) Description 07/20/2024 Abstract [facility] [place] [facility] [address] [place] [id number] Unallocated, Noms Provider, [address] [place] [address] Social History Tobacco Use Types Packs/Day Years [...] on filedocumented in this encounter Care Teams Administrative Receptionist Relationship Specialty Start Date End Date Marialuisa Dao DO [address] [place] [address] Referring Physician Neurology 01/12/25 documented as of this encounter
--- OUTSIDE RECORDS SUMMARY | 2025-05-10 12:33 | XMS_ITS | Encounter Summary ---
Author Organization [facility] tem Address [id number] [address] [place] [address] Care Team Providers Care Break And Load Operator Name Role Phone Lisa Garcia APRN-LAND LEASING INFORMATION CLERK Primary Care Provid er Encounter Details Date Type Department Care Team (Late st Contact Info) Description [facility]/14[facility] [address] [place] [id number] RadhaJaimie alexandre, EUCLID OPERATOR Social History Tobacco Use Types Packs/Day Years Used Date Smoking Tobacco: Never Smokeless Tobacco: Never Alcohol Use Standard Drinks/Week Comments Not Currently 0 (1 standard drink = 0.6 oz pur e alcohol) [facility] Utilities Answer Date Recorded In the past 12 months has e [employer], gas, oil, or water company threatened to shut off services in your home? Patient unable to answer 06/06/2024 AUDIT-C Answer Date Recorded Q1: How often do you have a drink containing alcohol? Never 06/06/2024 Q2: How many drinks containi ng alcohol do you have on a typical day when you are drinking? Patient does not drink Frequency of Binge Drinking Not on file 05/13 PRAPARE - Transportation Answer Date Re corded [...] before we got money to buy more. Patient unable to answer 06/06/2024 Within the past 12 months th e food we bought just didn't last and we didn't have money to get more. Patient unable to answer 06/06/2024 Purpose - Life Answer Date Recorded Purpose and direction in life Unknown Sex and Gender Information Value Date Recorded Sex Assigned at Not on file Legal Sex Male 11:59 AM EDT Gender Identity Not on file Sexual Orientation Not on file documented as of this encounter Miscellaneous Notes * Telephone Encounter - Jaimie Garcia CMA - 06/14/2024 3:18 PM EDT Pts called stated pt is in ICU for a stroke , wanted to know if that since his handicap placard is coming up for renewal if she can get the one the dont have to renew ? Is that a thing ? * Telephone Encounter - MARLENE Lawrence - 06/14/2024 3:18 PM EDT He officially is not my patient yet. He is a new patient in July. We order the placard that is only good for specific time period. * Telephone Encounter - Jaimie Garcia CMA - 06/14/2024 3:18 PM EDT Called pts read your note to her she said ok documented in this encounter Plan of Treatment Not on file documented as of this encounter Goals Goal Patient Goal Type Associated Problems Recent Progress Patient-Stated? Author <enter goal here> General Yes Beatrice Aceves LSW Note: Evaluation of progress towards goal: pt will likely need SNF vs IPR pending progress documented as of this encounter Visit Diagnoses Not on filedocumented in this encounter Care Teams Break And Load Operator Relationship Specialty Start Date End Date Lisa Garcia, EDGE STITCHER-LAND LEASING INFORMATION CLERK [address] [facility] PM 04/10/25 [place] [address] PCP - General Family Medicine 06/06/24 07/13/24 documented as of this encounter
--- OUTSIDE RECORDS SUMMARY | 2025-05-10 12:33 | XMS_ITS | Patient Health Record ---
Author Organization [facility] Address [address] [place] [address] Care Team Providers Care Home Coordinator Name Role Phone Jerrod Orozco MD Primary Care Provider Unavailemmett vargas Jacob Goldstein Unavailable [phone] xxLucianaConradoMyrtle Unavailable [phone] Allergies No Known Allergies Results Component Value Reference Range Notes [facility]- HUMER[facility] LEFT [id number] Reviewed date:12/22/2024 11:03:26 AM Interpretation: Performing Lab: Notes/Report: Reason For Referral Reason Please contact vee patterson to schedule with [facility], thank you. 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 Placed a referral to [facility] to evaluate and treat. I discussed this with patient's . We can see him back on as an as-needed basis. Left biceps contracture Plan Of Treatment No Information Insurance Providers Payer Name Payer Address Payer Phone Subscriber Number Group Number Insured Name Patient Relationship to Insured Coverage Start Date Coverage End Date MEDICARE UNITED [employer] [address] [address] [place] [phone] [id number] [employer] MEDELLIN Self - [facility] [address] [place] [address] [id number] [employer] Self - patient is the insured Medical (General) History Medical History History ICD Code Cancer Heart Attack Heart problems: Type II diabetes Stroke Blood Clots: High Blood Pressure Surgical History Surgery Date(Month/Year) stents 05/2022 mesh in leg 05/2024
--- OUTSIDE RECORDS SUMMARY | 2025-05-10 12:33 | XMS_ITS | Patient Health Record ---
Author Organization [employer] [facility] es Address [address] [place] [address] Care Team Providers Care Registered Associate Name Role Phone Megan Cabrera Ryan Primary Care Provider Niles Nguyen [phone] Reason For Referral No Information Medications Medication SIG (Take, Route, Frequency, Duration) Notes Start Date End Date Status Metoprolol Tartrate 50 mg 1 tablet Orall y Twice a day; Duration: 11/25/2010 Active Lisinopril 30 mg 1 tablet Orally twic e a day; Duration: 90 Active metFORMIN HCl 500 mg 1 tablet Orally twi ce a day; Duration: 90 days Active Aspir-Low 325 mg 1 tablet Orally Once a day; Duration: 30 day(s) Active Metoprolol Tartrate 25 MG 1 tablet Orall y Twice a day; Duration: 30 day(s) Active Krill Oil 1000 MG as directed Orally Active Problems Problem Type SNOMED Code ICD Code Onset Dates Problem Status W/U Status Risk Notes Problem Type II diabetes mellitus without complication (246895748) Diabetes mellitus without mention of complication, type II or unspecified type, not stated as uncontrolled (250.00) Active confirmed Problem Hyperlipidemia,U nspecified (272.4) Active confirmed Problem Benign essential hypertension (9233581) Essential hypertension, benign (401.1) Active confirmed Problem Hypertension (68124556) Hypertension (997.91) Active confirmed Plan Of Treatment No Information Insurance Providers Payer Name Payer Address Payer Phone Subscriber Number Group Number Insured Name Patient Relationship to Insured Coverage Start Date Coverage End Date ANTHEM Primary [address] [place] [address] [id number] Ranjeet Mcneil Self - patient is the insured Medical (General) History Medical History History ICD Code type II diabetes urolithiasis hypertension diabetic neuropathy stroke 02/14 CVA x 2 left subcotical lacunar infarct 01/15 Surgical History Surgery Date(Month/Year) vasectomy
--- OUTSIDE RECORDS SUMMARY | 2025-05-10 12:33 | XMS_ITS | Encounter Summary ---
Author Organization [employer] tem Address [id number] [address] [place] [address] Care Team Providers Care Material Processor Name Role Phone Garcia, Lisa Willis APRN-CLINICAL STAFF EDUCATOR Primary Care Provid er Encounter Details Date Type Department Care Team (Late st Contact Info) Description 07/04/2024 Telephone [facility] [address] [place] [address] Nisa Sabillon MD [address], [facility] [address] [place] [address] Social History Tobacco Use Types Packs/Day Years Used Date Smoking Tobacco: Never Smokeless Tobacco: Never Alcohol Use Standard Drinks/Week Comments Not Currently 0 (1 standard drink = 0.6 oz pur e alcohol) [facility] Utilities Answer Date Recorded In the past 12 months has e [employer], gas, oil, or water Active [employer] threatened to shut off services in your [...] encounter Miscellaneous Notes * Telephone Encounter - Ashley Henriquez - 07/04/2024 1:57 PM EDT Gunjan is calling to find out when patient is to be started on Eliquis. She states she has Vascularnote from hospital visit to [facility] that patient should start at discharge, yet he has still not been prescribed the medication and she would like clarification as to what is going on with him and Eliquis. She can be reached at [phone] Thank you. * Telephone Encounter - Beatrice Arellano LPN - 07/04/2024 1:57 PM EDT Gunjan from [facility] called to find out when patient is to be started on Eliquis? She has a vascular note from [facility] that patient should start at discharge. Gunjan states patient has not been prescribed the medication. Gunjan would like clarification as to what is going on with the patient and the Eliquis order. Gunjan can be reached at [phone]. documented in this encounter Plan of Treatment Not on file documented as of this encounter Goals Goal Patient Goal Type Associated Problems Recent Progress Patient-Stated? Author <enter goal here> General Yes Betarice Aceves LSW Note: Evaluation of progress towards goal: pt will likely need SNF vs IPR pending progress documented as of this encounter Visit Diagnoses Not on filedocumented in this encounter Care Teams Material Processor Relationship Specialty Start Date End Date Lisa Garcia, LIBRARY INFORMATION TECHNICIAN-CLINICAL STAFF EDUCATOR [address] LEFT PM 04/10/25 [place] [address] PCP - General Family Medicine 06/06/24 07/13/24 documented as of this encounter
--- OUTSIDE RECORDS SUMMARY | 2025-05-10 12:33 | XMS_ITS | Patient Health Record ---
Author Organization [facility] Address [address] [place], [place] [address] Care Team Providers Care Box Strapper Name Role Phone Eugenie Farrell Primary Care Provider Zenobia Muniz Unavailable [phone] Allergies Allergen (clinical drug ingredient) Drug/Non Drug [...] once a day Not-Taking OneTouch Delica Plus Axaetn72T - for 100 Active Blood Glucose Test [...] Problem Type II diabetes mellitus without complication (698396850) Type 2 diabetes mellitus without complication, without long-term current use of insulin (E11.9) Active confirmed Problem 50903029 Coronary artery disease involving [place] heart without angina pectoris, unspecified vessel or lesion type (I25.10) Active confirmed Problem Essential hypertension (41368331) Essential (primary) hypertension (I10) Active confirmed Comment:Patient refuses HCTZ. Will d/c HCTZ and start amlodipine for increased BP control. C/w at-home BP monitoring, call if BP is consistently >140/90 Check labs. F/u in 3 months.,Descrip tion:Essential hypertension Problem 060472754 Dorsalgia, unspecified (M54.9) Active confirmed Comment:Chronic low [...] vs referral to orthopedics., Problem Seasonal allergy (047429919) Environmental and seasonal allergies (J30.89) Active confirmed Comment:-Possib ly allergic rhinitis -Increase exposure to smoking son-in-law causing worsening symptoms -Normal PE -Will try trial of cetirizine, Problem Vertigo (543760637) Vertigo (R42) Active confirmed Comment:episode s of spinning w/ some nausea, responded to meclizine continue with meclizine as needed monitor frequency + length., Problem Gastroesophageal reflux disease (293469483) GERD (gastroesophage al reflux disease) (K21.9) Active confirmed Problem Hyperlipidemia (18697420) Hyperlipidemia (E78.5) Active confirmed Comment:Patient with statin allergy (throat swelling). TC 230, TG 373, HDL 35, LDL 120. Per patient he is sometimes: taking flax seed oil. Until next appt in 01/2013, will instruct to take 4 tabs of the flax seed oil DAILY. ALSO, low fat diet. Recheck prior to 01/2013 appt., Problem Type II diabetes mellitus (89916176) Type II diabetes mellitus (E11.9) Active confirmed Comment:overdue for A1c, has been a year. overdue for other labs as well. continue metformin -advised will need to have labs done to continue refilling continue with dietary management. encouraged to make appt for eye exam, Problem Muscle spasm (46299813) Muscle spasm (M62.838) Active confirmed Comment:reports muscle spasm of Left leg sometimes, looks like it is jumping will check electrolytes rec'd regular water intake, regular exercise, Problem Dysphagia (22735823) Trouble swallowing (R13.10) Active confirmed Comment:S/p CVA several years ago, worsening per patient. No pain. + trouble with word articulation also, will check swallow study and start speech therapy, Problem Abnormal feces (037893027) Positive fecal occult blood test (R19.5) Active [...] verified understanding, Problem Chest pain on exertion (57930966) Chest pain on exertion (R07.9) Active confirmed Comment:Chest pain on exertion iand resolves with rest and NTG in a patient with HTN, DM and h/o CVA. Has some components ?GERD BP is high and will add HCTZ PLAN: 1. C/W ASA 2. C/W Beta Blockers 3. C/W ACEi Add HCTZ 4. Check Labs 5. Lexiscan cardiolite stress test., Problem Arthralgia of knee (3560674288) Arthralgia of knee (M25.569) Active confirmed Description:K ne e pain Problem Cerebrovascular accident (882895461) CVA (cerebral infarction) (I63.9) Active confirmed Comment:weakjonathan s in his right arm and voice asking today for scooter, will complete form Reported choking on thin liquids occasionally, suspect possible dysphagia Discussed speech therapy to assess, educated on risk of aspiration pneumonia PVU, agreeable to plan, Problem Arthralgia of hip (7667224960) Arthralgia of hip (M25.559) Active confirmed Description:Hi p pain Problem Depression (687671846) Depression (F32.A) Active confirmed Comment:initial improvement w/ SSRI but symptoms increased again. will increase zoloft. short RTC to reassess., Encounters Encounter Location Date Provider Diagnosis [facility] [address] [facility] [address] [place], [place] [id number] 05/24/2024 Zenobia Flavio Type 2 diabetes mellitus without complication, without long-term current use of insulin E11.9 [facility] [address] [place], [place] [id number] 05/24/2024 Zenobia Muniz Assessments Encounter Date Diagnosis (ICD Code) Assessment Notes Treatment Notes Treatment Clinical Notes Section Notes 05/24/2024 Type 2 diabetes mellitus without complication, without long-term current use of insulin (ICD-10 - E11.9) Plan Of Treatment No Information Insurance Providers Payer Name Payer Address Payer Phone Subscriber Number Group Number Insured Name Patient Relationship to Insured Coverage Start Date Coverage End Date [facility] Medical [facility] [address] [place] [address] [id number] Ranjeet James Self - patient is the insured 8 Medical (General) History Medical History History ICD Code CVA (cerebral infarction), Depression, Diabetes, GERD (gastroesophageal reflux disease), Hyperlipidemia, Hypertension, Myocardial infarction, COMMENTS: 2019, Type II diabetes mellitus, Surgical History Surgery Date(Month/Year) Cardiac stenting Cataract Extraction-Bilateral Vasectomy
--- OUTSIDE RECORDS SUMMARY | 2025-05-10 12:33 | XMS_ITS | Encounter Summary ---
Author Organization [facility] Address [id number] [address] [place] [address] Care Team Providers Care Mechanic Marine Engine Name Role Phone Lisa Garcia APRN-DRY CLEANING ATTENDANT Primary Care Provid er Encounter Details Date Type Department Care Team (Late st Contact Info) Description 06/08/2024 Orders Only [facility] - Neurophysiology [address] [place] [id number] Teresa Mcdaniel Social History Tobacco Use Types Packs/Day Years Used Date Smoking Tobacco: Never Smokeless Tobacco: Never Alcohol Use Standard Drinks/Week Comments Not Currently 0 (1 standard drink = 0.6 oz pur e alcohol) [facility] Utilities Answer Date Recorded In the past 12 months has e electric, gas, oil, or water company threatened to [...] on file documented as of this encounter Mental Status * Question Answer Entry Date Author Overall Cognitive Status X 06/10/2024 8:58 AM EDT Rachna Llamas, JANR/Abdulaziz documented in this encounter Plan of Treatment Not on file documented as of this encounter Goals Goal Patient Goal Type Associated Problems Recent Progress Patient-Stated? Author <enter goal here> General Yes Beatrice Aceves LSW Note: Evaluation of progress towards goal: pt will likely need SNF vs IPR pending progress documented as of this encounter Visit Diagnoses Not on filedocumented in this encounter Additional Health Concerns Infection Onset Date Last Indicated Resolved Time COVID-19 Rule-Out 06/11/2024 06/11/2024 06/12/2024 1:31 AM EDT documented as of this encounter Care Teams Mechanic Marine Engine Relationship Specialty Start Date End Date Lisa Garcia, DAIRY MANAGER-DRY CLEANING ATTENDANT [address] LEFT PM 04/10[address]25 [place] [address] PCP - General Family Medicine 06/06/24 07/13/24 documented as of this encounter
--- OUTSIDE RECORDS SUMMARY | 2025-05-10 12:33 | XMS_ITS | Encounter Summary ---
Author Organization [facility] Address [address] [place] [address] Care Team Providers Care Student Ambassador Name Role Phone Sylwia Marialuisa DO Unavailable [phone] Encounter Details Date Type Department Care Team (Late st Contact Info) Description 08/23/2024 Abstract [facility] [place] [facility] [address] [place] [phone] Unallocated, Noms Provider, [address] [place] [address] Social History Tobacco Use Types Packs/Day Years [...] on filedocumented in this encounter Care Teams Student Ambassador Relationship Specialty Start Date End Date Marialuisa Dao DO [address] [place] [address] Referring Physician Neurology 01/12/25 documented as of this encounter
--- OUTSIDE RECORDS SUMMARY | 2025-05-10 12:33 | XMS_ITS | Clinical Summary ---
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); Left spastic hemiparesis (HCC); Seizure-like activity (HCC); Aphasia; Dysphagia, unspecified type; Deep vein thrombosis (DVT) of proximal vein of both lower extremities, unspecified chronicity (HCC) 02/16/2025 Bamboo flowsheet [facility] [address] [address] Esther Walls PA 02/08/2025 Telephone [facility] [address] [address] Talya Frost LPN New start Botox pa needed from Last 3 Months Social History Tobacco [...] 1955 FIT 1957 FOBT 1955 Sigmoidoscopy 1955 Influenza Vaccine (#1) 2025 4, 06/04/2023, 2022, Additional history exists Pneumococcal Vaccine: 65+ Years Completed 3 Insurance MEDICAID [place] AARP MEDICARE COMPLETE Care Teams Sales Department Supervisor Relationship Specialty Start Date End Date Marialuisa Dao DO [address] [place] [address] Referring Physician Neurology 01/12/25
--- OUTSIDE RECORDS SUMMARY | 2025-05-10 12:33 | XMS_ITS | Encounter Summary ---
Author Organization [facility] Address [address] [place] [address] Care Team Providers Care Senior Sales Engineer Name Role Phone Sylwia Marialuisa DO Unavailable [phone] Encounter Details Date Type Department Care Team (Late st Contact Info) Description 08/30/2024 Abstract [facility] [place] [facility] [address] [place] [id number] Unallocated, Noms Provider, [address] [place] [address] Social History Tobacco Use Types Packs/Day Years [...] on filedocumented in this encounter Care Teams Senior Sales Engineer Relationship Specialty Start Date End Date Marialuisa Dao DO [address] [place] [address] Referring Physician Neurology 01/12/25 documented as of this encounter
--- OUTSIDE RECORDS SUMMARY | 2025-05-10 12:34 | XMS_ITS | Clinical Summary ---
Author Organization [facility] Address [address], [address] [place] [address] Care Team Providers Care Bone Char Kiln Tender Name Role Phone Armando Vyas MD Primary Care Provider [phone] Social History Tobacco Use Types Packs/Day Years [...] Vaccine (2023-2 5 season) 2024 Flu vaccine (#1) 05/12/2025 Respiratory Syncytial Virus (RSV) or age 60 yrs+ (1 - 1-dose 75+ series) 2032 Polio vaccine Aged Out No longer elig ible based on patient's age to complete this topic Insurance [facility] MEDICARE MEDICAID [place] Care Teams Bone Char Kiln Tender Relationship Specialty Start Date End Date Armando Vyas MD [address] [place] [id number] PCP - General Psychiatry 07/19/24
--- NOTE | 2025-05-10 13:21 | PM.CN ---
Consult Note: HPI Data of Consult Patient: known to practice within the last 3 years Consult date: 05/10/25 Requesting Physician: Marii Andrews NP Primary Care Provider: ZA ALCALA Consult Narrative Reason for consult: left arm pain Narrative: 69yom who presents for evaluation. notes pain in left arm likely due to contracture. patient has had several strokes and is now nonverbal. saw ortho, who did not think shoulder was culprit. uses pain medicine as needed. at last visit we ordered transdermal therapeutics #6a to be utilized TID but they did not recieve it. pt was originally tolerating tens well but recently it has caused pain/tears with use so it has been discontinued. cc:: CC: Marii Andrews NP Review of Systems ROS Status of ROS 10 or more systems reviewed and unremarkable except as noted in history and below Meds Home Medications and Allergies Home Medications ?Medication ?Instructions ?Recorded ?Confirmed ?Type acetaminophen 650 mg 650 mg PO Q8H PRN pain 01/03/25 01/03/25 History tablet,extended release (8 Hour Pain Reliever) amlodipine 5 mg tablet 5 mg PO DAILY 01/03/25 01/03/25 History aspirin 81 mg capsule 81 mg PO DAILY 01/03/25 01/03/25 History atorvastatin 40 mg tablet 40 mg PO DAILY 01/03/25 01/03/25 History buspirone 5 mg tablet 5 mg PO TID 01/03/25 01/03/25 History cholecalciferol (vitamin D3) 100 100 mcg PO DAILY 01/03/25 01/03/25 History mcg (4,000 unit) capsule ciprofloxacin 500 mg/5 mL oral 500 mg PO BID 01/03/25 01/03/25 History suspension diclofenac sodium 1 % topical gel 2 g topical QID 01/03/25 01/03/25 History doxazosin 2 mg tablet (Cardura) 2 mg PO DAILY 01/03/25 01/03/25 History famotidine 20 mg tablet 20 mg PO DAILY 01/03/25 01/03/25 History glucagon 1 mg/0.2 mL subcutaneous mg subcut PRN low sugar 01/03/25 History auto-injector glycerin drp ophthalmic (eye) 01/03/25 History insulin glargine 100 unit/mL (3 10 unit subcut .hs 01/03/25 01/03/25 History mL) subcutaneous pen (Lantus Solostar U-100 Insulin) insulin glargine-aglr 100 unit/mL 10 unit subcut QPM 01/03/25 01/03/25 History (3 mL) subcutaneous pen (Rezvoglar KwikPen) insulin lispro 100 unit/mL 1 sliding scale dose subcut 01/03/25 01/03/25 History subcutaneous pen USEASDIRECTD ipratropium 0.5 mg-albuterol 3 mg 3 ml inhalation QID PRN shortness 01/03/25 01/03/25 History (2.5 mg base)/3 mL nebulization of breath soln levetiracetam 500 mg tablet 500 mg PO DAILY 01/03/25 01/03/25 History (Keppra) losartan 100 mg tablet mg 01/03/25 History melatonin 10 mg capsule 10 mg PO DAILY 01/03/25 01/03/25 History oxycodone-acetaminophen 5 mg-325 1 tab PO Q6H PRN pain 01/03/25 01/03/25 History mg tablet (Percocet) paroxetine HCl 10 mg tablet (Paxil) 10 mg PO DAILY 01/03/25 01/03/25 History polyethylene glycol 3350 17 17 g PO DAILY PRN constipation 01/03/25 01/03/25 History gram/dose oral powder (Gavilax) risperidone 0.5 mg tablet 0.5 mg PO DAILY 01/03/25 01/03/25 History (Risperdal) sennosides 8.8 mg/5 mL oral syrup 8.8 mg PO DAILY 01/03/25 01/03/25 History (senna) simethicone 80 mg chewable tablet 80 mg PO QID PRN abdominal 01/03/25 01/03/25 History (Gas Relief (simethicone)) distention trazodone 50 mg tablet 50 mg PO DAILY 01/03/25 01/03/25 History valproic acid 250 mg capsule 250 mg PO TID 01/03/25 01/03/25 History Allergies Allergy/AdvReac Type Severity Reaction Status Date / Time No Known Drug Allergies Allergy Verified 01/03/25 15:26 Exam Narrative Exam Narrative: pt nonverbal ? Skin-no obvious rashes, bruising, or erythema noted to the patient's area of pain. Extremities-upper extremities are warm with minimal edema and palpable pulses. unable to perform active ROM exercises in LUE Cervical- tenderness to palpation noted in the cervical spine and paraspinal musculature.?? Range of motion is slightly diminished due to pain. Assessment and Plan Assessment and Plan (1) Contracture of muscle, left upper arm: (2) Myofascial pain: (3) Biceps tendinitis: (4) Chronic pain of left upper extremity: Plan 69yom who presents for evaluation. failed conservative measures, as noted. continue baclofen. start transdermal therapeutics cream 6a TID. utilize TENS prn. continue f/u with neurology, considering botox. no further recommendations at this time
== END 2025-05-10 12:31 | disposition home or self-care (01) ==
LOC: PM 12:31
PROVIDERS: PCP Family Medicine; Visit Provider Nurse Practitioner
DX: M62.422 Contracture of muscle, left upper arm (principal); M79.622 Pain in left upper arm; M75.22 Bicipital tendinitis, left shoulder
CPT/HCPCS: G0463

== ENCOUNTER 2025-09-13 12:43 | Outpatient (REF) | payer MEDICARE, MEDICAID, SELFPAY ==
--- OUTSIDE RECORDS SUMMARY | 2025-08-02 09:00 | XMS_ITS ---
Author Organization [facility] Address [address] [place] [address] [address] [address] Care Team Providers Care Junior Data Analyst Name Role Phone Jerrod Orozco Primary Care Provider UnavailJhony Cramer Unavailable [phone] Encounters Encounter Location Date Provider Diagnosis [address] [address] 08/02/2025 Jhony Barron Plan Of Treatment No Information Progress Notes * Ranjeet MEDELLIN ADOB:1954 (70 yo M)Acc No.[id number]:08/02/2025 Patient:?Ranjeet Medellin :?MELA DeleonMDOB:1955???Age:70 Y???Sex: MaleDate:08/02/2025Phone:[phone]:[address] [place], [place]Txs:Jerrod Orozco * Electronic signature of Jhony Barron DPM on 09/13/2025 at 12:47 PM ESTSign off status: Pending * Provider: Megan Barron DPM Date: 1 Generated for Printing/Faxing/eTransmitting on:?09/13/2025 12:47 PM EST
--- OUTSIDE RECORDS SUMMARY | 2025-09-13 12:47 | XMS_ITS | Clinical Summary ---
Author Organization [employer] Address [id number] [address] [place] [address] Care Team Providers Care Sweat Box Attendant Name Role Phone Unavailable Primary Care Provider Unavailabl e Allergies No known active allergies Medications MedicationSigDispense QuantityRefillsLast FilledStart DateEnd DateStatus amLODIPine (NORVASC) 5 mg tablet Take 1 tablet (5 mg total) by mouth in the morning.07/02/2024ctive atorvastatin (LIPITOR) 40 mg tablet Administer 1 tablet (40 mg total) per tube nightly.07/01/2024ctive bacitracin 500 unit/gram packet Apply 1 Application topically in the morning and 1 Application before bedtime. 07/01/2024ctive Additional Information Patient not taking.Reported on 01/12/2025 cholecalciferol, vitamin D3, (VITAMIN D3) 5,000 units capsule Administer 1 capsule (5,000 Units total) per tube in the morning.07/02/2024 Active famotidine (PEPCID) 20 mg tablet Administer 1 tablet (20 mg total) per tube in the morning and 1 tablet (20 mg total) before bedtime.07/01/2024ctive insulin lispro (HumaLOG) 100 unit/mL insulin pen Inject 23 Units under the skin every 4 (four) hours.07/01/2024ctive Additional Information Patient not taking.Reported on 01/12/2025 insulin lispro (HumaLOG) 100 unit/mL insulin pen Inject 2-10 Units under the skin every 4 (four) hours.07/01/2024ctive glucagon HCL 1 mg/mL injection Inject 1 mL (1 mg total) into the appropriate muscle as needed for low blood sugar (blood glucose less than 70 mg/dL and unconscious or NPO without IV access.).07/01/2024ctive ipratropium-albuteroL (DUONEB) 0.5 mg-3 mg(2.5 mg base)/3 mL nebulizer Indications: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 (CMS-HCC)Inhale 3 mL by nebulization every 6 (six) hours as needed for wheezing.07/01/2024ctive losartan (COZAAR) 100 mg tablet Administer 1 tablet (100 mg total) per tube in the morning.07/02/2024ctive melatonin (CIRCADIN) 5 mg tablet Take 1 tablet (5 mg total) by mouth nightly.07/01/2024ctive metoprolol tartrate (LOPRESSOR) 25 mg tablet Administer 1 tablet (25 mg total) per tube in the morning and 1 tablet (25 mg total) before bedtime.07/01/2024ctive polyethylene glycol (GLYCOLAX) 17 gram packet Administer 17 g per tube in the morning.07/02/2024ctive sennosides 8.8 mg/5 mL syrup Administer 5 mL (8.8 mg total) per tube nightly.07/01/2024ctive QUEtiapine (SEROquel) 25 mg tablet Take 1 tablet (25 mg total) by mouth in the morning and 1 tablet (25 mg total) before bedtime.Active traZODone (DESYREL) 50 mg tablet Take 1 tablet (50 mg total) by mouth nightly.Active acetaminophen (TYLENOL EXTRA STRENGTH) 500 mg tablet Take 1 tablet (500 mg total) by mouth every 8 (eight) hours as needed for pain. Active busPIRone (BUSPAR) 5 mg tablet Take 1 tablet (5 mg total) by mouth 3 (three) times a day.Active LORazepam (ATIVAN) 0.5 mg tablet Take 1 tablet (0.5 mg total) by mouth every 8 (eight) hours as needed for anxiety.Active PARoxetine (PAXIL) 10 mg tablet 08/20/2024ctive risperiDONE (RisperDAL) 1 mg tablet 08/22/2024ctive valproate (DEPAKENE) 250 mg/5 mL syrup 08/29/2024ctive levETIRAcetam (KEPPRA) 100 mg/mL solution Take 10 mg/kg by mouth in the morning and 10 mg/kg before bedtime.Active baclofen (LIORESAL) 10 mg tablet Take 1 tablet (10 mg total) by mouth 3 (three) times a day.5Active diclofenac sodium (VOLTAREN ARTHRITIS PAIN) 1 % gel Apply 2 g topically 3 (three) times a day.5Active propylene glycol-glycerin (ARTIFICIAL TEARS,GLYCERIN-PEG,) 1-0.3 % drops ophthalmic solution Administer 1 drop to both eyes 4 (four) times a day as needed for dry eyes. 4Active REZVOGLAR KWIKPEN 100 unit/mL (3 mL) insulin pen Inject 10 Units under the skin nightly.5Active oxyCODONE-acetaminophen (PERCOCET) 5-325 mg per tablet Take 1 tablet by mouth every 6 (six) hours as needed. Max Daily Amount: 4 cowiqre8907/29/2024ctive simethicone (GAS RELIEF 80, SIMETHICONE,) 80 mg chewable tablet Chew 1 tablet (80 mg total) and swallow every 6 (six) hours as needed for flatulence.4Active aspirin 81 mg Take 1 tablet (81 mg total) by mouth in the morning.Expired Active Problems ProblemNoted DateDiagnosed DatePresence of IVC bhwsns5601/12/2025 Assessment & Plan (01/12/2025 9:55 AM EDT): We will get D-dimer. Will get okay from neurology to remove the filter and start him on anticoagulation Prophylactic dose. Acute deep vein thrombosis (DVT) of distal vein of both lower extremities 06/23/2024 Assessment & Plan (07/14/2024 9:08 AM EDT): Compression stockings leg elevation follow-up in 6 months to evaluate for IVC filter retrieval. Currently he can be on blood thinners and he has acute DVT and he has an IVC filter. Stroke (cerebrum)06/06/2024 Assessment & Plan (07/14/2024 9:08 AM EDT): No evidence of carotid stenosis. This seems to be cardioembolic and hemorrhagic. Continue follow-upwith neurology cardiology and continue rehab Udzuurjhr75/26/2024Myocardial infarction Immunizations ImmunizationAdministration DatesNext DueInfluenza (IM) Preservative Free 07/01/2017,05/25/2015Influenza Vaccine, Quadrivalent, Fzlpkkcwgt97/24/2023 Influenza, High-dose, Bnmbdeqpjyla89/12/2022Influenza, Im Trivalent Preservative 05/31/2019Influenza, Injectable, quadrivalent (PF)06/30/2021,06/21/2020 Pneumococcal Conjugate 20-lhcxjk1306/11/2023Tdap11/15/2016,05/25/2015Zoster Vaccine Gygfnmkcgub42/31/2023 Social History Tobacco UseTypesPacks/DayYears UsedDateSmoking Tobacco: NeverSmokeless Tobacco: Never Tobacco Cessation:Counseling Given: Not Answered Alcohol UseStandard Drinks/WeekCommentsNot Currently0 (1 standard drink = 0.6 oz pure alcohol)[facility] UtilitiesAnswerDate RecordedIn the past 12 months has the [employer], oil, or water [employer] threatened to shut off services in your home?Patient unable to euxsyn2506/06/2024UDIT-CAnswerDate RecordedQ1: How often do you have a drink containing alcohol?Never06/06/2024Q2: How many drinks containing alcohol do you have on a typical day when you are drinking?Patient does not drink06/06/2024Frequency of Binge DrinkingNot on file06/06/2024HQ-2 AnswerDate RecordedTotal Gfjcb299PRAPARE - TransportationAnswerDate RecordedIn the past 12 months, has lack of transportation kept you from medical appointments or from getting medications?Patient unable to emeksc0106/06/2024In the past 12 months, has lack of transportation kept you from meetings, work, or from getting things needed for daily living?Patient unable to hzihts4906/06/2024 Housing InstabilityAnswerDate RecordedAre you worried or concerned that in the next two months you may not have stable housing that you own, rent or stay in as a part of a household?Patient unable to kcpcqz9006/06/2024hildcareAnswerDate GkysjjeqYculfayrcXlnions35/12/2019EmploymentAnswerDate RecordedEmploymentUnknown 03/23/2019Hunger ScreeningAnswerDate RecordedWithin the past 12 months we worried whether our food would run out before we got money to buy more.Never True01/12/2025Within the past 12 months the food we bought just didn't last and we didn't have money to get more.Never True01/12/2025Purpose - LifeAnswerDate RecordedPurpose and direction in qvpdQobfwjd10/11/2021ex and Gender Information ValueDate RecordedSex Assigned at BirthNot on fileLegal BzkYylh1205/17/2015 11:59 AM EDTGender IdentityNot on fileSexual OrientationNot on file Last Filed Vital Signs Vital SignReadingTime TakenCommentsBlood Vejujygn291/7204 8:12 AM EDT Uxtfy359301/12/2025 8:12 AM GOARqneoooyxfh19.8 ??C (98.2 ??F)01/12/2025 8:12 AM EDTRespiratory Ithy838907/01/2024 11:52 AM EDTOxygen Kuxunnvtxo34%01/12/2025 8:12 AM EDTInhaled Oxygen Concentration--Jkftsx71.4 kg (179 lb 6.4 oz)01/12/2025 8:12 AM ICCGkicpu558.7 cm (5' 8 )01/12/2025 8:12 AM EDTBody Mass Index27.28001/12/2025 8:12 AM EDT Plan of Treatment Health MaintenanceDue DateLast DoneCommentsStatin Use: Nskmxwrugcbuuj1957 Adult BMI Follow Up Plan1975Fall Risk Rkpxqcrpu29/12/2022Zoster (Shingles) Vaccine (3 of 3)/, 05/18/2014COVID-19 Vaccine ( season)/01/2023, 2022, 01/15/2022, Additional history exists Influenza Uauteea15/, 06/04/2023, 2022, Additional history existsDepression Bbvsspeit52Tobacco Screening /dult BMI Oumnnqsgq56DTaP,Tdap and Td Vaccines (3 - Td or Tdap), 05/25/2015RSV ( or age 60+ yrs) (1 - 1-dose 75+ series)2032 Goals GoalPatient Goal TypeAssociated ProblemsRecent ProgressPatient-Stated?Author <enter goal here> Beatrice Washington LSW Note: Evaluation of progress towards goal: pt will likely need SNF vs IPR pending progress Medical Devices ImplantedTypeAreaManufacturerDevice IdentifierShelf Expiration DateModel / Serial / LotFilter Embl 49mm 65cm Vc Rdpq Preld Flsh Sdprt Intro Strl Rpl [id number] - [id number] Implanted:Qty: 1 on 06/24/2024 by Sari Velasquez MD at [facility] [employer] [id number] / / [id number] Insurance Advance Directives * Full Code (Latest Code Status on File) Date ActivatedDate InactivatedComments06/07/2024 8:12 AM07/01/2024 6:54 PM
--- OUTSIDE RECORDS SUMMARY | 2025-09-13 12:47 | XMS_ITS | Clinical Summary ---
Author Organization [facility] Address [address] [place] [address] Care Team Providers Care Fractionation Plant Supervisor Name Role Phone Marialuisa Dao DO Unavailable [phone] Allergies No known active allergies Medications No known medications Encounters DateTypeDepartmentCare AdjcRwxhusrxobm56/17/2025bstract [facility] [address] [place] [id number] Unallocated, Noms ProviderMD from Last 3 Months Social History Tobacco UseTypesPacks/DayYears UsedDateSmoking Tobacco: Never AssessedSex and Gender InformationValueDate RecordedSex Assigned at BirthNot on fileLegal Sex Male12/24/2022 6:52 PM EDTGender IdentityNot on fileSexual OrientationNot on file Last Filed Vital Signs Vital SignReadingTime TakenCommentsBlood Htbebqjq803/7204 10:45 AM EDT Mbtra8672/08/2025 10:27 AM EDTTemperature--Respiratory Hwdq355902/16/2025 10:27 AM EDTOxygen Nbzspifbdx83%02/16/2025 10:27 AM EDTInhaled Oxygen Concentration-- Grpzas10.9 kg (185 lb)02/16/2025 10:27 AM EGAItjsvb203.8 cm (5' 10 )02/16/2025 10:27 AM EDTBody Mass Index26.54002/16/2025 10:27 AM EDT Plan of Treatment Health MaintenanceDue DateLast DoneCommentsCT Tjwwqdjpvgxf1957Colonoscopy 1957Colorectal Cancer Ctgydsdaf1957FIT-DNA1957FIT1957 FOBT1957 7860Jhdewqsbuagof1957COVID-19 Vaccine ( season) 5007/11/2021, 01/08/2021, 12/19/2020Influenza Vaccine (#1)2025 07/27/2024, 06/04/2023, 2022, Additional history existsPneumococcal Vaccine: 65+ QrhxwCvwxoedil94/31/2023 Insurance Care Teams Team MemberRelationshipSpecialtyStart DateEnd Date Marialuisa Dao DO [address] [place] [address] Referring PhysicianNeurology01/12/25
--- OUTSIDE RECORDS SUMMARY | 2025-09-13 12:47 | XMS_ITS | Patient Health Record ---
Author Organization [facility] Address [address] [place] [address] [address] [place] [place] [address] Care Team Providers Care Assignment Desk Assistant Name Role Phone PamJerrod cintron Primary Care Provider UnavailJhony Cramer Unavailable [phone] Reason For Referral No Information Encounters Encounter Location Date Provider Diagnosis [facility] [address] [place] [address] 08/02/2025 Jhony Barron Plan Of Treatment No Information Insurance Providers Payer Name Payer Address Payer Phone Subscriber Number Group Number Insured Name Patient Relationship to Insured Coverage Start Date Coverage End Date Medicare Part B J-15 Part [facility] Claims [address] [place] [address] [id number] Mcneil - patient is the insuredDel[facility] Hospitalca[facility] Dpt of Job Fmly [address] [place], [place] [id number], DanielSelf - patient is the insured
--- OUTSIDE RECORDS SUMMARY | 2025-09-13 12:47 | XMS_ITS | Patient Health Record ---
Author Organization [facility] Address [address] [place], [place] [id number] Care Team Providers Care Solution Sales Senior Executive Name Role Phone Eugenie Farrell Primary Care Provider Allergies Allergen (clinical drug ingredient) Drug/Non Drug Allergy documented on EMR Reaction Allergy Type Onset Date Status penicillin V Penicillin V Potassium Vomiting Drug Allergy 0 07/05/2019 Active Reason For Referral No Information Medications Medication SIG (Take, Route, Frequency, Duration) Notes Start Date End Date Status Ozempic (0.25 or 0.5 MG/DOSE ) 2 MG/3ML Solution Pen-injector inject 0.5mg Subcutaneous once a week; Duration: 90 days ActiveAtorvastatin Calcium 80 MG TabletTAKE 1 TABLET BY MOUTH AT BEDTIME; Duration: 90Not-Taking/PRNSimvastatin 40 MG Tablet1 tablet in the evening Orally Once a day; Duration: 90 days01/13/2023ctivemetFORMIN HCl 500 MG Tablettake 2 tablets by mouth twice a day with meals; Duration: 90ActiveLosartan Potassium 100 MG Tablettake 1 tablet by mouth once daily; Duration: 90ActiveClopidogrel Bisulfate 75 MG Tablettake 1 tablet by mouth once daily; Duration: 90Active Metoprolol Tartrate 50 MG Tablettake 1 tablet by mouth twice a day with food; Duration: 90ActiveSertraline HCl 50 MG Tablettake 1 AND 1/2 tablets by mouth once daily; Duration: 90ActiveOzempic (1 MG/DOSE) 4 MG/3ML Solution Pen-injector 1mg Subcutaneous once a week12/12/2021Not-Taking/PRNMeclizine HCl 25 MG Tablet1 tablet as needed Oral once a dayNot-Taking/PRNOneTouch Delica Plus Sacbvi36E - Miscellaneous; Duration: 100ActiveBlood Glucose Test Strip - Strip1 strip In Vitro once a dayInfinity strips.12/12/2021ctiveOneTouch Verio Flex System w/Device Kit; Duration: 1Active Immunizations Vaccine Route Administration Date Status Comme nts COVID-19 (Pfizer)-Private Unknown 12/19/2020 Administer ed COVID-19 (Pfizer)-RppnfczLadacps33/30/2021dministeredCOVID-19 (Pfizer)-Private Stdpgkb1707/11/2021dministeredInfluenza (split), 3 yrs and aboveOTH Other/Pafbplhpgrpxc98/07/2014dministeredStatus:Complete ,Reason:Given or N/A ,See scanned documentInfluenza (split), 3 yrs and aboveOTH Other/Miscellaneous 05/31/2019AdministeredStatus:Complete ,Reason:Given or N/AInfluenza, quadrivalent (IIV4), split virus, 6-35 months dosageOTH Other/Miscellaneous 06/21/2020AdministeredStatus:Complete ,Reason:Given or N/AInfluenza, quadrivalent, split, preservative free, 3 years or olderOTH Other/Miscellaneous 06/30/2021dministeredStatus:Complete ,Reason:Given or N/A ,see scanned document - KSZosterOTH Other/Slcpjpacmkyge99/07/2014dministeredStatus:Complete ,Reason:Given or N/A ,See scanned document Social History Tobacco Use: Social History Observation Description Date Details (start date - stop date) Never Smoker NA - NA Sex Assigned At : Social History Observation Description Sex Assigned At Male Social History Household:Social InfoQuestionAnswerNotesHouseholdNumber of adults in household:2 Drugs/Alcohol/Caffeine:Social InfoQuestionAnswerNotesDrugsHave you used drugs other than those for medical reasons in the past 12 months?NoCaffeineIntake:3-4 cups per dayTobacco Use:Social InfoQuestionAnswerNotesTobacco Use/SmokingTobacco use:nonsmokerAdditional DetailsCategorySocial InfoOptionsDetailsMiscellaneous: Culture/Language BarrierNoEducation LevelCollegeBarriers to LearningNoneLearning PreferenceDoing or practicingHow often do you need to have someone help you read instructionsNeverMigrated Social HistoryMigrated Social History Barriers to Learning: None Caffeine Use: 6 cans Diet Pepsi a day Cultural or sikhism beliefs that would affect your care here? 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 No Drug Use Non Drinker/No Alcohol Use Patient feels safe in relationships SafetyPatient feels safe in relationshipsYesDrugs/Alcohol/Caffeine:Do you drink alcohol?No Problems Problem Type SNOMED Code ICD Code Onset Dates Problem Status W/U Status Risk Notes Problem Type II diabetes renuka litus without complication (461474620) Type 2 diabetes mellitus without complication, without long-term current use of insulin (E11.9) ActiveconfirmedProblemAtherosclerotic heart disease of cata[place] coronary artery without angina pectoris (540603272804209)Coronary artery disease involving cata[place]ba heart without angina pectoris, unspecified vessel or lesion type (I25.10) ActiveconfirmedProblemEssential hypertension (37247083)Essential (primary) hypertension (I10)Activeconfirmed Comment:Patient refuses HCTZ. Will d/c HCTZ and start amlodipine for increased BP control. C/w at-home BP monitoring, call if BP is consistently >140/90 Check labs. F/u in 3 months.,Description:Essential hypertension ProblemBackache (781329602)Dorsalgia, unspecified (M54.9)Activeconfirmed Comment:Chronic low back pain worse on the [...] weeks and if not better will need Intra-artricular knee steroid injection vs referral to orthopedics., ProblemSeasonal allergy (944244163)Environmental and seasonal allergies (J30.89) Activeconfirmed Comment:-Possibly allergic rhinitis -Increase exposure to smoking son-in-law causing worsening symptoms -Normal PE -Will try trial of cetirizine, ProblemVertigo (218984386)Vertigo (R42)Activeconfirmed Comment:episodes of spinning w/ some nausea, responded to meclizine continue with meclizine as needed monitor frequency + length., ProblemGastroesophageal reflux disease (045202074)GERD (gastroesophageal reflux disease) (K21.9)ActiveconfirmedProblemHyperlipidemia (22263170)Hyperlipidemia (E78.5)Activeconfirmed Comment:Patient with statin allergy (throat swelling). TC 230, TG 373, HDL 35, LDL 120. Per patient he is sometimes: taking flax seed oil. Until next appt in 01/2013, will instruct to take 4 tabs of the flax seed oil DAILY. ALSO, low fat diet. Recheck prior to 01/2013 appt., ProblemType II diabetes mellitus (24382810)Type II diabetes mellitus (E11.9) Activeconfirmed Comment:overdue for A1c, has been a year. overdue for other labs as well. continue metformin -advised will need to have labs done to continue refilling continue with dietary management. encouraged to make appt for eye exam, ProblemMuscle spasm (93131825)Muscle spasm (M62.838)Activeconfirmed Comment:reports muscle spasm of Left leg sometimes, looks like it is jumping will check electrolytes rec'd regular water intake, regular exercise, ProblemDysphagia (38832703)Trouble swallowing (R13.10)Activeconfirmed Comment:S/p CVA several years ago, worsening per patient. No pain. + trouble with word articulation also, will check swallow study and start speech therapy, ProblemAbnormal feces (756884055)Positive fecal occult blood test (R19.5)Active confirmed Comment:-Had + fecal occult test in 08/2016 -Pt refusing colonscopy; not candidate for cologuard d/t + fecal occult -Denies any blood in stool -Pt attributes to having 2 weeks of diarrhea; states was raw at the time -Has hx of hemorrhoids; declined rectal exam -No family hx of colon cancer -Advised of risks; pt and verified understanding, ProblemChest pain on exertion (90156583)Chest pain on exertion (R07.9)Active confirmed Comment:Chest pain on exertion iand resolves with rest and NTG in a patient with HTN, DM and h/o CVA. Has some components ?GERD BP is high and will add HCTZ PLAN: 1. C/W ASA 2. C/W Beta Blockers 3. C/W ACEi Add HCTZ 4. Check Labs 5. Lexiscan cardiolite stress test., ProblemArthralgia of knee (4476828175)Arthralgia of knee (M25.569)Active confirmedDescription:Knee painProblemCerebrovascular accident (588722378)CVA (cerebral infarction) (I63.9)Activeconfirmed Comment:weakness in his right arm and voice asking today for scooter, will complete form Reported choking on thin liquids occasionally, suspect possible dysphagia Discussed speech therapy to assess, educated on risk of aspiration pneumonia PVU, agreeable to plan, ProblemArthralgia of hip (9765987501)Arthralgia of hip (M25.559)Activeconfirmed Description:Hip painProblemDepression (609865600)Depression (F32.A)Active confirmed Comment:initial improvement w/ SSRI but symptoms increased again. will increase zoloft. short RTC to reassess., Plan Of Treatment No Information Insurance Providers Payer Name Payer Address Payer Phone Subscriber Number Group Number Insured Name Patient Relationship to Insured Coverage Start Date Coverage End Date [facility] Dual Medical [facility] [address] [place] [address] [phone] [id number] OHDSRanjeet Braxton Self - patient is the insured 8 Medical (General) History Medical History History ICD Code CVA (cerebral infarction), Depression,Diabetes,GERD (gastroesophageal reflux disease),Hyperlipidemia, Hypertension,Myocardial infarction, COMMENTS: 2020,Type II diabetes mellitus, Surgical History Surgery Date(Month/Year) Cardiac stenting Cataract Extraction-BilateralVasectomy
--- OUTSIDE RECORDS SUMMARY | 2025-09-13 12:48 | XMS_ITS | Patient Health Record ---
Author Organization [facility] Address [address] [place] [address] Care Team Providers Care Heavy Duty Custodian Name Role Phone Megan Cabrera Ryan Primary Care Provider [phone] [phone] Reason For Referral No Information Medications Medication SIG (Take, Route, Frequency, Duration) Notes Start Date End Date Status Metoprolol Tartrate 50 mg Tablet 1 tablet Orally Twice a day; Duration: 11/25/2010ctiveLisinopril 30 mg Tablet1 tablet Orally twice a day; Duration: ctivemetFORMIN HCl 500 mg Tablet1 tablet Orally twice a day; Duration: 90 daysctiveAspir-Low 325 mg Tablet Delayed Release1 tablet Orally Once a day; Duration: 30 day(s) ctiveMetoprolol Tartrate 25 MG Tablet1 tablet Orally Twice a day; Duration: 30 day(s)ctiveKrill Oil 1000 MG Capsuleas directed Xpxeba93ctive Social History Section Notes: No smoking no etoh no drugs No smoking no etoh no drugs Problems Problem Type SNOMED Code ICD Code Onset Dates Problem Status W/U Status Risk Notes Problem Type II diabetes renuka litus without complication (594435844) Diabetes mellitus without mention of complication, type II or unspecified type, not stated as uncontrolled (250.00) ActiveconfirmedProblemHyperlipidemia (71641830)Hyperlipidemia,Unspecified (272.4)ActiveconfirmedProblemBenign essential hypertension (3145637)Essential hypertension, benign (401.1)ActiveconfirmedProblemHypertension (71579376) Hypertension (997.91)Activeconfirmed Plan Of Treatment No Information Insurance Providers Payer Name Payer Address Payer Phone Subscriber Number Group Number Insured Name Patient Relationship to Insured Coverage Start Date Coverage End Date [employer] Primary [address] [address] [place] [address] [id number] Ranjeet Mcneil Self - patient is the insured Medical (General) History Medical History History ICD Code type II diabetes urolithiasishypertensiondiabetic neuropathystroke 02/14CVA x 2 left subcotical lacunar infarct 01/15Surgical History Surgery Date(Month/Year) vasectomy
--- OUTSIDE RECORDS SUMMARY | 2025-09-13 12:54 | XMS_ITS | CCD ---
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 Name Role Phone PROVIDER, UNKNOWN Attending Unavailable PROVIDER, UNKNOWN Admitting Unavailable AHMED, IRFAN Primary Care Unavailable AHMED, IRFAN Referring Unavailable AHMED, IRFAN Referring Unavailable AHMED, IRFAN Primary Care Unavailable Unavailable Primary Care Provider UnavailYHUN Pardo Admitting Unavailable HYUN OSCRA Attending Unavailable XU GOMEZ Referring Unavailab RAINA Morley Primary Care Unavailable RON LOVE Consulting Unavailable ALBERTO DIAZ Consulting Unavailable MAGNOLIA CHANG Consulting Unavailable OOSTRAJACQUES Consulting Unavailable KLADAWILLIAM Consulting Unavailable GRETCHEN ORTEGA Consulting Unavailable AFMADELINE DAMON Consulting Unavailable ART [place] Referring Unavailable RAINA GARCIA Primary Care Unavailable ART [place] Referring Unavailable RAINA GARCIA Primary Care Unavailable EVERETT JOHNSON Attending UnavailRAINA Aviles Primary Care Unavailable RAINA GARCIA Referring Unavailable RAINA GARCIA Primary Care Unavailable JEANNETTE CHUN Referring Unavailable Unavailable Primary Care Provider Unavailemmett Bermudez ASSEMBLER GOLF WOOD HEAD-Sayra DODD Primary Care Provider Jose ASSEMBLER GOLF WOOD HEAD-Raina DODD Primary Care Provid er Salma Garcia MD Attending Unavailable Unavailable Primary Care Provider UnavailZa Alanis MD Primary Care Provider [phone] Luis M Dao DO Unavailable JANELL TRIMBLE Attending Unavailable RAINA GARCIA Referring Unavailable JANELL TRIMBLE Attending Unavailable NISA SABILLON Attending Unavailable RAINA GARCIA Referring Unavailable LAURE KEITH Referring Unavailable RAINA GARCIA Primary Care Unavailable GOMBASH, XU WIL Referring Unavailab le GOMBASH, XU DE LA TORRE Attending Unavailab RAINA Morley Primary Care Unavailable GOMBASH, XU WIL Referring Unavailab le GOMBASH, XU DE LA TORRE Attending Unavailab RAINA Morley Primary Care Unavailable GOMBASH, XU WIL Referring Unavailab le GOMBASH, XU DE LA TORRE Attending Unavailab le NO PCP, NO PCP Primary Care Unavailable GOMBASH, XU DE LA TORRE Attending Unavailab LUIS M Rahman Attending Unavailable MARYSE HUFF Referring Unavailable SYLWIA, LUIS M Referring Unavailable ESTHER WALLS Attending Unavailable Unavailable Primary Care Provider UnavailEliot Hope Attending Unavailable Eliot Murillo Admitting Unavailable NON STAFF Primary Care Unavailable Ariane Estevez APRN Attending Provider Za Alcala MD Primary Care Provider Luis M Dao DO Attending Provider Medications Current Medications MedicationDrug Class(es)DatesSig (Normalized)Sig (Original)acetaminophen 325 mg oral capsule (10 sources)Start: 84-65-5092ptom 1 capsule by mouth every six hours as needed Start: 50-64-0441fmfn 2 capsules by mouth every six hours as needed for paintake 1 tablet by mouth every eight hours as needed for painacetaminophen (TYLENOL EXTRA STRENGTH) 500 mg tablet Take 1 tablet (500 mg total) by mouth every 8 ( eight) hours as needed for pain. Activeacetaminophen 325 mg / oxyCODONE hydrochloride 5 mg oral tablet (9 sources)Opioid AgonistStart: 78-65-6537ilzz 1 tablet by mouth every six hours as neededStart: 09-20-2024 End: 33-34-6142Lnvzp: 07-29-2024 End: 62-27-0847vivf 1 tablet by mouth every six hoursoxyCODONE-acetaminophen (PERCOCET) 5-325 mg per tablet Take 1 tablet by mouth every 6 (six) hours. Max Daily Amount: 4 tablets 08/14/2024 09/13/2024 Expiredalbuterol 0.833 mg/ml / ipratropium bromide 0.167 mg/ml inhalation solution (12 sources)Anticholinergic, beta2-Adrenergic AgonistStart: 44-31-3172lxsn 1 mL by inhalation every six hours as neededamLODIPine 5 mg oral tablet (12 sources)Dihydropyridine Calcium Channel BlockerStart: 15-34-0278mdhr 1 tablet by mouth once dailyaspirin 81 mg oral tablet (8 sources)Platelet Aggregation Inhibitor, Nonsteroidal Anti-inflammatory Drug Start: 01-62-6451uqxt 1 tablet by mouth once dailyStart: 06-04-2020 End: 75-49-3415bzah 1 tablet by mouth in the morningaspirin 81 mg Take 1 tablet (81 mg total) by mouth in the morning. 09/07/2024 09/07/2025 Activeatorvastatin 40 mg oral tablet (13 sources)HMG-CoA Reductase InhibitorStart: 24-57-7927eowv 1 tablet by mouth once dailyStart: 62-24-6393aahreinfljea (LIPITOR) 40 mg tablet Administer 1 tablet (40 mg total) per tube nightly. 07/01/2024 ActiveStart: 06-04-2020 End: 27-08-6794xfoj 1 tablet by mouth once daily in the eveningAtorvastatin 80 mg Tablet Discontinued 80 MG PO Every evening June 04, 2020 12:00am September 28, 2024 1:08pmbacitracin 0.5 unt/mg topical ointment (10 sources)Start: 96-67-5258svykdmccla 500 unit/gram packet Apply 1 Application topically in the morning and 1 Application before bedtime. 07/01/2024 Active baclofen 10 mg oral tablet (3 sources)gamma-Aminobutyric Acid-ergic AgonistStart: 97-22-8468emxj 10 mg by mouth three times dailyStart: 29-45-8915jjwn 1 tablet by mouth three times daily baclofen (LIORESAL) 10 mg tablet Take 1 tablet (10 mg total) by mouth 3 (three) times a day. 01/02/2025 ActivebusPIRone hydrochloride 5 mg oral tablet (10 sources)Start: 76-67-5637ohcd 1 tablet by mouth three times daily cholecalciferol 0.125 mg oral capsule (12 sources)Vitamin DStart: 15-29-6261spfc 1 capsule by mouth once dailyStart: 30-84-3497ybaw 12.5 ug by mouth once dailyStart: 60-32-1010whduaqhydzknbzm, vitamin D3, (VITAMIN D3) 5,000 units capsule Administer 1 capsule (5,000 Units total) per tube in the morning. 07/02/2024 Activedextromethorphan hydrobromide 2 mg/ml / guaiFENesin 20 mg/ml oral solution (1 source)Uncompetitive J-djugrh-M-aspartate Receptor Antagonist, Sigma-1 AgonistStart: 50-41-8508uqfs 1 mL by mouth every four to six hours as needed diclofenac sodium 0.01 mg/mg topical gel (1 source)Nonsteroidal Anti-inflammatory DrugStart: 06-63-7541xlmvzkwghy sodium (VOLTAREN ARTHRITIS PAIN) 1 % gel Apply 2 g topically 3 (three) times a day. 11/30/2024 Activedoxazosin 2 mg oral tablet (2 sources)alpha-Adrenergic BlockerStart: 88-11-6129ybsq 1 tablet by mouth once dailyfamotidine 20 mg oral tablet (12 sources)Histamine-2 Receptor AntagonistStart: 28-64-8834drai 1 tablet by mouth once dailyStart: 11-00-0608qmue 1 tablet by mouth twice dailyStart: 92-86-6341myxkjydmyl (PEPCID) 20 mg tablet Administer 1 tablet (20 mg total) per tube in the morning and 1 tablet (20 mg total) before bedtime. 07/01/2024 Active glucagon (rdna) 1 mg injection (11 sources)Antihypoglycemic AgentStart: 90-03-8686Xksdi: 09-15-8270jwtddzwk HCL 1 mg/mL injection Inject 1 mL (1 mg total) into the appropriate muscle as needed for low blood sugar (blood glucose less than 70 mg/dL and unconscious or NPO without IV access.). 07/01/2024 Activeglycerin 3 mg/ml / propylene glycol 10 mg/ml ophthalmic solution (1 source)Non-Standardized Chemical AllergenStart: 09-57-9026rtmorfxmk glycol- glycerin (ARTIFICIAL TEARS,GLYCERIN-PEG,) 1-0.3 % drops ophthalmic solution Administer 1 drop to both eyes 4 (four) times a day as needed for dry eyes. 09/19/2024 ActiveGlycerin drops (1 source)Start: ml insulin glargine 100 unt/ml pen injector (1 source)Insulin AnalogStart: 15-97-3315rjvrwu 10 [IU] by subcutaneous injection once daily in the evening3 ml insulin lispro 100 unt/ml pen injector (20 sources)Insulin AnalogStart: 01-11-0010dodDLOJYumree 100 mg/ml oral solution (2 sources)take 10 mg by mouth in the morninglevETIRAcetam (KEPPRA) 100 mg/mL solution Take 10 mg/kg by mouth in the morning and 10 mg/kg beforebedtime. ActiveLORazepam 0.5 mg oral tablet (8 sources)Benzodiazepinetake 1 tablet by mouth every eight hours as needed for anxietyLORazepam (ATIVAN) 0.5 mg tablet Take 1 tablet (0.5 mg total) by mouth every 8 (eight) hours as needed for anxiety. Activelosartan potassium 100 mg oral tablet (18 sources)Angiotensin 2 Receptor BlockerStart: 53-23-2319hufijuvo (COZAAR) 100 mg tablet Administer 1 tablet (100 mg total) per tube in the morning. 07/02/20 24 ActiveStart: 09-83-4133nscq 1 tablet by mouth once dailytake 1 tablet by mouth in the morninglosartan (COZAAR) 50 mg tablet Take 1 tablet (50 mg total) by mouth in the morning. Suspendedmelatonin 5 mg oral capsule (13 sources)Start: 28-21-0461Bjhcx: 63-36-5891dltz 1 capsule by mouth once daily at bedtime as neededStart: 59-99-9921iqan 1 tablet by mouth once dailymelatonin (CIRCADIN) 5 mg tablet Take 1 tablet (5 mg total) by mouth nightly. 07/01/2024 Activemetoprolol tartrate 25 mg oral tablet (19 sources)beta-Adrenergic BlockerStart: 77-70-7201aycy 1 tablet by mouth twice dailyStart: 89-60-3648yvlqlwldec tartrate (LOPRESSOR) 25 mg tablet Administer 1 tablet (25 mg total) per tube in the morning and 1 tablet (25 mg total) before bedtime. 07/01/2024 ActiveStart: 06-01-2020 End: 12-69-7444fjxz 1 tablet by mouth twice dailyMetoprolol Tartrate (Lopressor) 50 mg tablet Discontinued 50 MG PO Twice daily June 01, 2020 12:00am September 28, 2024 1:14pm take 1 tablet by mouth twice a daytake 1 tablet by mouth every twenty-four hours in the morningmetoprolol succinate XL (TOPROL-XL) 50 mg 24 hr tablet Take 1 tablet (50 mg total) by mouth in the morning. Suspendedtake 1 tablet by mouth once dailymetoprolol succinate XL (TOPROL-XL) 50 mg 24 hr tablet Take 50 mg by mouth daily. ActivePARoxetine hydrochloride 10 mg oral tablet (9 sources)Serotonin Reuptake InhibitorStart: 47-95-2639koej 1 tablet by mouth once dailypolyethylene glycol 3350 63117 mg powder for oral solution (12 sources)Osmotic LaxativeStart: 81-69-8550Zgexj: 99-76-9797hwisvhlshobe glycol (GLYCOLAX) 17 gram packet Administer 17 g per tube in the morning. 07/02/2024 ActiveQUEtiapine 25 mg oral tablet (8 sources)Atypical Antipsychotictake 1 tablet by mouth in the morning, then take 1 tablet by mouth at bedtimeQUEtiapine (SEROquel) 25 mg tablet Take 1 tablet (25 mg total) by mouth in the morning and 1 tablet(25 mg total) before bedtime. ActiveREZVOGLAR KWIKPEN 100 unit/mL (3 mL) insulin pen (1 source)Start: 40-11-5607wwfelf 10 [IU] by subcutaneous injection once daily REZVOGLAR KWIKPEN 100 unit/mL (3 mL) insulin pen Inject 10 Units under the skin nightly. 5ActiverisperiDONE 1 mg oral tablet (8 sources)Atypical AntipsychoticStart: 27-40-8323lrkk 1 tablet by mouth twice dailysennosides, fci 1.76 mg/ml oral solution (12 sources)Start: 05-57-6723jskf 1 mL by mouth once daily at bedtime as needed Start: 77-15-0870ztvriitnwh 8.8 mg/5 mL syrup Administer 5 mL (8.8 mg total) per tube nightly. 07/01/2024 Activesimethicone 80 mg chewable tablet (3 sources)Start: 31-92-3154grcw 1 tablet by mouth once daily at bedtimeStart: 74-84-9248Mskfu: 21-45-8584pwubyjxcxdv (GAS RELIEF 80, SIMETHICONE,) 80 mg chewable tablet Chew 1 tablet (80 mg total) and swallow every 6 (six) hours as needed for flatulence. 08/03/2024 ActivetraZODone hydrochloride 50 mg oral tablet (10 sources)Serotonin Reuptake InhibitorStart: 05-04-2858tdvt 1 tablet by mouth once dailyStart: 82-38-4088relt 1 tablet by mouth once dailytraZODone (DESYREL) 50 mg tablet Take 1 tablet (50 mg total) by mouth nightly. Activevalproic acid 50 mg/ml oral solution (9 sources)Mood Stabilizer, Anti-epileptic AgentStart: 65-64-4349cfde 250 mg by mouth twice dailyStart: 45-84-7515Ztazr: 50-71-2564sntzlpsbg (DEPAKENE) 250 mg/5 mL syrup 08/29/2024 Active Completed/Discontinued Medications MedicationDrug Class(es)DatesSig (Normalized)Sig (Original)escitalopram 10 mg oral tablet (1 source)Serotonin Reuptake InhibitorStart: 06-01-2020 End: 50-00-0745vjpk 1 tablet by mouth once dailyEscitalopram Oxalate (Lexapro) 10 mg tablet Discontinued 10 MG PO Daily June 01, 2020 12:00am June 04, 2020 12:37pm take 1 tablet by mouth once dailymetFORMIN hydrochloride 500 mg oral tablet (7 sources)BiguanideStart: 06-01-2020 End: 47-43-0127akiq 1 tablet by mouth twice daily at dinnerMetformin (Glucophage) 500 mg tablet Discontinued 500 MG PO Before breakfast and supper June 01, 2020 12:00am September 28, 2024 1:20pm take 1 tablet by mouth twice a day WITH BREAKFAST AND DINNERnitroglycerin 0.4 mg sublingual tablet (1 source)Nitrate VasodilatorStart: 06-04-2020 End: 79-92-1947Iougdxioqaydn 0.4 mg tablet, sublingual Discontinued 0.4 MG SUBLINGUAL Q5M as needed for chest pain25 June 04, 2020 12:00am September 28, 2024 1:20pm do not exceed 3 doses per episodeticagrelor 90 mg oral tablet (1 source)Start: 06-04-2020 End: 99-68-0642gxgp 1 tablet by mouth twice dailyTicagrelor (Brilinta) 90 mg Tablet Discontinued 90 MG PO Twice daily 180 90 June 04, 2020 12:00am September 28, 2024 1:20pm Problems Active Problems Problem ClassificationProblemDateDocumented DateEpisodic/ChronicAcute cerebrovascular disease (20 sources)Cerebrovascular accident; Translations: [Cerebral infarction, unspecified]Onset: 524624-76-4709UcmfxkfWbomn myocardial infarction (12 sources)Myocardial infarction; Translations: [Acute myocardial infarction, unspecified]80-37-7326BkafisnEnsgqkizl-deficit, conduct, and disruptive behavior disorders (2 sources)Other symptoms and signs involving appearance and behavior; Translations: [Other symptoms and signsinvolving appearance and behavior]Onset: 56-71-9076XnifjmprJcizskrq atherosclerosis and other heart disease (1 source)Past history of procedure; Translations: [Coronary angioplasty status] 99-78-8792TjgcpcwdRisnbayk mellitus without complication (2 sources)Type 2 diabetes mellitus without complications; Translations: [Type 2 diabetes mellitus]Onset: 825091-12-9851JlreybqJcdzymnzu of lipid metabolism (1 source)Dyslipidemia; Translations: [Hyperlipidemia, unspecified]06-02-2020 ChronicEpilepsy; convulsions (11 sources)Neurological finding; Translations: [Unspecified convulsions]Onset: 345700-57-6134XcvpkshiUchejaslk hypertension (1 source)Essential hypertension; Translations: [Essential (primary) hypertension]56-98-6026BdlebryCsxm effects of cerebrovascular disease (7 sources)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; Translations: [Weakness as a late effect of stroke]Onset: 11-30-2024 47-51-9528YsiqhqjKpegtih and fatigue (1 source)Weakness; Translations: [Weakness]Onset: 39-52-8724UdkxwfpmRqbse aftercare (2 sources)Other snf (current) drug therapy; Translations: [Other snf (current) drug therapy]Onset: 85-79-1499YpdqvxdhKtbft and ill-defined cerebrovascular disease (1 source)Other cerebrovascular vasospasm and vasoconstriction; Translations: [Other cerebrovascular vasospasm and vasoconstriction]Onset: 89-12-1794Sgymywo Other and ill-defined cerebrovascular disease (2 sources)Cerebrovascular disease; Translations: [Other cerebrovascular vasospasm and vasoconstriction]30-54-8508WpqxmroSsynu and ill-defined heart disease (1 source)Asymptomatic left ventricular systolic dysfunction; Translations: [Heart disease, unspecified]19-00-6450SntdymoZvhxr circulatory disease (2 sources)Inferior vena cava filter in situ; Translations: [Presence of other vascular implants and grafts]Onset: 916015-74-1221BgadasmDhdro circulatory disease (1 source)History of cerebrovascular accident; Translations: [Personal history of transient ischemic attack (TIA), and cerebral infarction without residual deficits]16-86-7041DhixlxudTrhnf connective tissue disease (6 sources)Cramp; Translations: [Cramp and spasm]EpisodicOther gastrointestinal disorders (18 sources)Dysphagia; Translations: [Dysphagia, unspecified]Onset: 06-06-2024 65-03-2716WxwajntxJrnrs nervous system disorders (6 sources)Aphasia; Translations: [Aphasia]67-92-1039InyregkBdelxmryy (6 sources)Left hemiparesis; Translations: [Spastic hemiplegia affecting left nondominant side]94-95-3954JjhslsdNzaczqjlg; thrombophlebitis and thromboembolism (20 sources)Acute embolism and thrombosis of unspecified deep veins of distal lower extremity, bilateral; Translations: [Acute deep vein thrombosis of lower limb]Onset: 996237-68-1862BrmvgosrMvbpgfdh codes; unclassified (2 sources)Altered mental status, unspecified; Translations: [Altered mental status, unspecified]Onset: 31-19-1517FrkohpigZitqghhl codes; unclassified (2 sources)Pain; Translations: [Pain, unspecified]99-79-7545LflrdmorSjyfrlfhojre (1 source)CVAOnset: 48-04-3658Bftofztiefvu (1 source)follow-up in 6 months to evaluate for IVC filter retrievalOnset: 26-48-3221Kgiofsywnnwe (1 source)EMSOnset: 02-03-5776Zhnplfzljyjn (2 sources)R25.2 - Cramp and spasm Past or Other Problems Problem ClassificationProblemDateDocumented DateEpisodic/ChronicMood disorders (7 sources)Mood disordersOnset: 09-07-2024 Resolved: 509419-63-7435Hzzeyhvzcpc chest pain (1 source)Chest pain, unspecified; Translations: [Chest pain, unspecified]Onset: 76-56-0045CoxoroayBegdf gastrointestinal disorders (2 sources)Dysphagia, unspecified; Translations: [Dysphagia, unspecified]Onset: 12-40-6236TuczqiuzVtqoo nervous system disorders (1 source)NumbnessOnset: 72-82-4659LxydrdnpBterl non-epithelial cancer of skin (1 source)Basal cell carcinoma of skin of lip; Translations: [Basal cell carcinoma of skin of lip]Onset: 05-45-2826BbqcsqlyHazgt skin disorders (1 source)Lesion of skin of nose; Translations: [Disorder of the skin and subcutaneous tissue, unspecified]71-05-6405UkyplidzSwopljupxgyc (1 source)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 (CMS-HCC)09-07-2024 Results Test NameValueInterpretationReference RangeFacilityFL SWALLOW MOTILITY FUNCTION on 89-04-1483EU SWALLOW MOTILITY FUNCTIONFL SWALLOW MOTILITY FUNCTION History: Oropharyngeal dysphagia Exam: Swallow motility study Procedure: Patient's swallowing mechanism observed in conjunction with speech pathology with multiple consistencies of barium. Reference air kerma: 3.9 mGY. Findings: There is difficulty in the oral phase. With all consistencies of barium, there is moderate amount of vallecular and piriform sinus residual. With thin barium, there was one episode of mild laryngeal penetration. Small amount of thin barium given after peach consistency barium resulted in a significant cough with at least one drop of barium seen below the vocal cords consistent with aspiration. Impression: * 1 episode of aspiration with marked cough. See Speech Pathology report for more details and recommendations. Finalized by Ubaldo Juárez MD on 02/01/2025 9:39 AMNormalProMedica Sherman Oaks Hospital And The [facility] CenterXR HUMERUS LT*on 65-80-6822[address] [address] XRay Report Signed Patient: RANJEET MEDELLIN MR#: [id number] : 1955 Acct:[id number] Age/Sex: 69 / M ADM Date: 12/19/24 Loc: [facility] Attending Dr: Micheal Goldstein M.D. Ordering Physician: Micheal Goldstein M.D. Date of Service: 12/19/24 Procedure(s): XR humerus LT Accession Number(s): [id number] cc: ZA ALCALA ; Micheal Goldstein M.D. [place] [address] Patient Name: RANJEET MEDELLIN MRN: [id number] date: 1955 Sex: M Assigned Patient Location: Current Patient Location: Accession/Order Number: [id number] Exam Date: 12/19/2024 13:54 Report Date: 12/19/2024 13:57 At the request of: MICHEAL GOLDSTEIN MD Procedure: XR humerus LT LEFT HUMERUS - 2 views CLINICAL HISTORY: LEFT HUMERUS PAIN. No reported injury. COMPARISON: None AP and lateral views of the left humerus were obtained with patient in wheelchair, limiting evaluation. The elbow is suboptimally seen on the available views. No definite acute fracture is noted in the field of view. No dislocation is seen at the shoulder. There is mild degenerative change at the acromioclavicular joint and greater tuberosity. There are no significant soft tissue abnormalities. XR/XR humerus LT IMPRESSION: LIMITED EVALUATION HOWEVER THOSE PARTS OF THE UPPER ARM THAT ARE INCLUDED ON THE IMAGES SHOW NO ACUTE FINDINGS. MILD DEGENERATIVE CHANGES AT THE SHOULDER. Impression dictated by: Lucita Granda M.D.12/19/2024 1:57 PM Dictation Location: [place] [address] Electronically authenticated by: [id number] Y Date: 12/19/2024 13:57 Dictated By: Lucita Granda M.D. Signed By: 12/19/24 1359 DD/ 1357 TD/TT: Truck Driver Flatbed:CORALHRadiology, Radiologist, - 12/19/[address] [address] XRay Report Signed Patient: RANJEET MEDELLIN MR#: [id number] : 1955 Acct:[id number] Age/Sex: 69 / M ADM Date: 12/19/24 Loc: EC Attending Dr: Micheal Goldstein M.D. Ordering Physician: Micheal Goldstein M.D. Date of Service: 12/19/24 Procedure(s): XR humerus LT Accession Number(s): [id number] cc: ZA ALCALA ; Micheal Goldstein M.D. The [place] [id number] Patient Name: RANJEET MEDELLIN MRN: [id number] date: 1955 Sex: M Assigned Patient Location: Current Patient Location: Accession/Order Number: [id number] Exam Date: 12/19/2024 13:54 Report Date: 12/19/2024 13:57 At the request of: MICHEAL GOLDSTEIN MD Procedure: XR humerus LT LEFT HUMERUS - 2 views CLINICAL HISTORY: LEFT HUMERUS PAIN. No reported injury. COMPARISON: None AP and lateral views of the left humerus were obtained with patient in wheelchair, limiting evaluation. The elbow is suboptimally seen on the available views. No definite acute fracture is noted in the field of view. No dislocation is seen at the shoulder. There is mild degenerative change at the acromioclavicular joint and greater tuberosity. There are no significant soft tissue abnormalities. XR/XR humerus LT IMPRESSION: LIMITED EVALUATION HOWEVER THOSE PARTS OF THE UPPER ARM THAT ARE INCLUDED ON THE IMAGES SHOW NO ACUTE FINDINGS. MILD DEGENERATIVE CHANGES AT THE SHOULDER. Impression dictated by: Lucita Granda M.D.12/19/2024 1:57 PM Dictation Location: [place] [address] Electronically authenticated by: [id number] Y Date: 12/19/2024 13:57 Dictated By: Lucita Granda M.D. Signed By: 12/19/24 1359 DD/ 1357 TD/TT: Truck Driver Flatbed: WAN HealthcareRadiology Study observation (narrative)WAN HealthcareXR HUMERUS LT*Ordered By: Radiologist Radiology on 27-30-3973[facility]GGSoutheast [facility] Work Phone: Glucose Poct Glucometerson 36-47-9756Kgxbtin5Slo1: Cleaned MeterNormHCA Florida Ocala Hospital Physician GroupComment on above:Result Comment: PERFORMED BY: [place] [address] [place] [address] PATHOLOGIST HOMEMAKER COMPANION NISA FUNK M.D.Performed By: #### GLULS #### Point of Care testing ,Glucose [Mass/Vol]224 mg/dLNoUNC Health Physician GroupComment on above: Result Comment: Random Glucose Reference Range is dependent on time and content of last meal. Glucose of more than 200 mg/dL in a nonstressed, ambulatory subject supports the diagnosis of Diabetes Mellitus.Performed By: #### GLULS #### Point of Care testing ,Lipid Profileon 79-51-8122Ecamohucile [Mass/Vol]154 mg/dLNormal0-199[facility] HospitalComment on above:Result Comment: Cholesterol Guidelines: <200 Desirable 200-240 Borderline >240 UndesirablePerformed By: #### LIPR #### [place] [place] [address] [place], [place] [id number] Vascular Technologist: MARLIN Ibarraholesterol in HDL [Mass/Vol]44 mg/dLNormal>40 [facility] HospitalComment on above:Result Comment: HDL Guidelines: <40 Undesirable 40-59 Borderline >59 DesirablePerformed By: #### LIPR #### [facility] [place] [address] [place], [place] [id number] Vascular Technologist: MARLIN Ibarraholesterol in LDL [Mass/Vol]86 mg/dLNormal0-100 [facility] HospitalComment on above:Result Comment: LDL Guidelines: <100 Desirable 100-129 Near to/above Desirable 130-159 Borderline >159 Undesirable Direct (measured) LDL and calculated LDL are not interchangeable tests.Performed By: #### LIPR #### [facility] [address] [place] [address] Vascular Technologist: MARLIN Ibarraholesterol in VLDL [Mass/Vol]25 mg/dLNormal [facility] HospitalComment on above:Performed By: #### LIPR #### [place] [id number] [place] [address] Vascular Technologist: Lakisha Ibarra.total/Cholesterol in HDL [Mass ratio]4.0 {ratio}NormalFort Hamilton HospitalComment on above:Performed By: #### LIPR #### [address] [address] Vascular Technologist: Adonis Trujillo MDTriglyceride [Mass/Vol]125 mg/dLNormal<150[facility] HospitalComment on above:Result Comment: Triglyceride Guidelines: <150 Desirable 150-199 Borderline 200-499 High >499 Very high Based on AHA Guidelines for fasting triglyceride, July 2012.Performed By: #### LIPR #### [address] [address] Vascular Technologist: Marley Ibarra Metabolic Profon 12-67-7019Swqjk gap [Moles/Vol]11 mmol/LNormal9-16[facility] HospitalComment on above:Performed By: #### KOMAL, BMP #### [facility] [address] [place] [address] [place] [address] Vascular Technologist: Adonis Loo MDBUN/CRE Fnbjs95Arkc7-90VymvrFort Hamilton Hospital Comment on above:Performed By: #### CBC, BMP #### [facility] [address] [place] [address] [place] [address] Vascular Technologist: MARLIN Harveyalcium [Mass/Vol]9.8 mg/dLNormal8.6-10.4[facility] [place] HospitalComment on above:Performed By: #### CBC, BMP #### [facility] [address] [place], [place] 6[address]183 Vascular Technologist: MARLIN Harveyhloride [Moles/Vol]100 mmol/BHiqxjp00-104XdgwtFort Hamilton HospitalComment on above:Performed By: #### KOMAL, BMP #### [address] [place], [place] 2385283 Vascular Technologist: Adonis Loo MDCO2 [Moles/Vol]27 mmol/PMomwhy79-31YmpqvFort Hamilton HospitalComment on above:Performed By: #### KOMAL, BMP #### [address] [place], [place] 134[address]83 Vascular Technologist: MARLIN Harveyreatinine [Mass/Vol]0.7 mg/dLNormal0.70-1.20[facility] [place] HospitalComment on above:Performed By: #### KOMAL, BMP #### [address] [place], [facility]83 Vascular Technologist: Adonis Loo MDGFR/1.73 sq M.predicted among non-blacks MDRD (S/P/Bld) [Vol rate/Area]mL/min/{1.73_m2}Normal>60[facility] [place] HospitalComment on above:Result Comment: These results are not intended for [...] or following therapy that affects renal tubular secretion.Performed By: #### KOMAL, BMP #### [address] [place] [address] Vascular Technologist: Adonis Loo MDGlucose [Mass/Vol]264 mg/aPQnjg75-85SlbzoMercy Health Allen HospitalComment on above:Performed By: #### KOMAL, BMP #### [address] [place] 437[address]83 Vascular Technologist: SREEKANTH Harveyotassium [Moles/Vol]4.4 mmol/LNormal3.7-5.3[facility] HospitalComment on above:Performed By: #### CBC, BMP #### [address] [place], [place] [address]83 Vascular Technologist: LONA Harveyodium [Moles/Vol]138 mmol/HFhdvde078-268Ltfhr Tiffin HospitalComment on above:Performed By: #### CBC, BMP #### [address] [place], [place] [address]83 Vascular Technologist: Adonis Loo MDUrea nitrogen [Mass/Vol]20 mg/dLNormal8-23MerSelect [facility], [place] HospitalComment on above:Performed By: #### KOMAL, BMP #### [address] [place], [facility]83 Vascular Technologist: Mariann Harvey 63-29-9935Lybcknsbqbi distribution width (RBC) [Ratio]14.6 %High11.8-14.4[facility] Centercy Putnam HospitalComment on above:Performed By: #### KOMAL, BMP #### [address] [place], [place] 332[address]83 Vascular Technologist: Adonis Loo MDHematocrit (Bld) [Volume fraction]40.9 %Normal 40.7-50.3[facility] HospitalComment on above:Performed By: #### KOMAL, BMP #### [address] [place], [place] 77[address]883 Vascular Technologist: Adoins Loo MDHemoglobin (Bld) [Mass/Vol]13.8 g/dLNormal 13.0-17.0MerSelect [facility], [place] HospitalComment on above:Performed By: #### CBC, BMP #### [address] [place], [place] 8966683 Vascular Technologist: EDMAR HarveyCH (RBC) [Entitic mass]31.4 hdDxxtau55.2-33.5 [facility] HospitalComment on above:Performed By: #### CBC, BMP #### [address] [place], [place] [address]83 Vascular Technologist: STANISLAV HarveyC (RBC) [Mass/Vol]33.7 g/lMAuwvsz68.4-34.8[facility] [place] HospitalComment on above:Performed By: #### KOMAL, BMP #### [address] [place] [address] Vascular Technologist: EDMAR HarveyCV (RBC) [Entitic vol]93.2 gKBlhvrp80.6-102.9 [facility] [place] HospitalComment on above:Performed By: #### KOMAL, BMP #### [address] [place], [facility]83 Vascular Technologist: VIVIANA Harvey Automated0.0 per 100 WBCNormal0.0[facility] [place] HospitalComment on above:Performed By: #### KOMAL, BMP #### [address] [place] [address] Vascular Technologist: Keisha Harvey mean volume (Bld) [Entitic vol]9.3 fL Normal8.1-13.5[facility] [place] HospitalComment on above:Performed By: #### CBC, BMP #### [address] [place] [address] Vascular Technologist: Willem Harvey (Bld) [#/Vol]212 10*3/dWUwahhx598-404 [facility] [place] HospitalComment on above:Performed By: #### CBC, BMP #### [address] [place] [address] Vascular Technologist: YOVANNY Harvey ([facility]) [#/Vol]4.39 10*6/uLNormal4.21-5.77[facility] HospitalComment on above:Performed By: #### KOMAL, BMP #### [facility] [address] [place] [address] Vascular Technologist: BALTA Harvey ([facility]) [#/Vol]8.0 10*3/uLNormal3.5-11.3[facility] HospitalComment on above:Performed By: #### KOMAL, BMP #### [facility] [address] [place] [address] Vascular Technologist: MARLEY Harvey METABOLIC PANLon 08-63-0603Xwrjy gap [Moles/Vol]8 mmol/LNormal5-15[facility] HospitalComment on above:Performed By: #### TI, BMP ####[facility] ([id number])[address], [place] [address]Lnavavo [Mass/Vol]9.2 mg/dLNormal8.5-10.5[facility] HospitalComment on above:Performed By: #### TI, BMP ####[facility] ([id number])[address], [place] [address]Vasuxirb [Moles/Vol]103 mmol/SZhkxps09-456TqaRbamcy [facility] HospitalComment on above: Performed By: #### TI, BMP ####[facility] ([id number])[address], [address], [place] [address]XV7 [Moles/Vol]26 mmol/BTbsuxn30-46FrpSghfhy [facility] HospitalComment on above:Performed By: #### TI, BMP ####[facility] ([id number])[address], [place] [address] Creatinine [Mass/Vol]0.57 mg/dLLow0.60-1.30[facility] HospitalComment on above:Result Comment: METHOD TRACEABLE TO IDMS STANDARDPerformed By: #### TI BMP ####[facility] ([id number])[address], [address]T [facility], [place] [address]sFDD (CKD-EPI) NON-RACE DEPENDENT>90Normal>59[facility] HospitalComment on above:Result Comment: Reported eGFR is based on theCKD-EPI 2020 equation that doesnot use a race coefficient.Performed By: #### TI BMP ####[facility] ([id number])[address] [address] [place] [address]Idjusla [Mass/Vol]100 mg/aSSrql01-69PldZoclvc [facility] HospitalComment on above:Performed By: #### TI BMP ####[facility] ([id number])[address] [address] [place] [address]Kkiohesal [Moles/Vol]4.1 mmol/LNormal3.5-5.0[facility] HospitalComment on above:Performed By: #### TI, BMP ####[facility] ([id number])[address] [address] [place] [address]Rqjeov [Moles/Vol]137 mmol/YGtzivp600-066PqxWouszo [facility] HospitalComment on above:Performed By: #### TI, BMP ####[facility] ([id number])[address] [address], [place] [address]Lflz nitrogen [Mass/Vol]34 mg/dLHigh5-27[facility] HospitalComment on above:Performed By: #### TI, BMP ####[facility] ([id number])[address], [address], [place] [address]BWR AND AUTO DIFFon 09-98-3946GCKWUDTT BASOPHIL0.0 X10E9/LNormal0.0-0.2[facility] HospitalComment on above:Performed By: #### CBCA, BMP ####[facility] ([id number])[address], [address], [place] [address]DVMEVEXN NEUTROPHIL7.4 X10E9/LHigh1.5-6.6[facility] HospitalComment on above:Performed By: #### CBCA, BMP ####[facility] ([id number])[address], [address], [place] [address]Gqtyhixcu/100 WBC (Bld)0.4 %NormalProMedica Rockwell HospitalComment on above:Performed By: #### CBCA, BMP ####[facility] ([id number])[address], [address] [place] [address]Muxvabtdwco (Bld) [#/Vol]0.2 10*3/uLNormal0.0-0.4[facility] HospitalComment on above:Performed By: #### CBCA, BMP ####[facility] ([id number])[address], [address] [place] [address] Eosinophils/100 WBC (Bld)1.6 %NormalProMedica Rockwell HospitalComment on above: Performed By: #### CBCA, BMP ####[facility] ([id number])[address], [address] [place] [address]Vofclsxtxfb distribution width (RBC) [Ratio] 16.0 %High11.5-15.0[facility] HospitalComment on above:Performed By: #### CBCA, BMP ####[facility] ([id number])[address], [address] [place] [address]Hlwivgqnbp (Bld) [Volume fraction]40.4 %Wysvkc18-94TseXumnxs [facility] HospitalComment on above:Performed By: #### CBCA, BMP ####[facility] ([id number])[address], [address], [place] [address]Qjfphqmgfj (Bld) [Mass/Vol]13.7 g/yHPpkwep13.0-17.0[facility] HospitalComment on above:Performed By: #### CBCA, BMP ####[facility] ([id number])[address], [address], [place] [address]Hbxwyktjewl (Bld) [#/Vol] 1.9 10*3/uLNormal1.0-3.5[facility] HospitalComment on above:Performed By: #### CBCA, BMP ####[facility] ([id number])[address], [address], [place] [address]Dmirgdfpfin/100 WBC (Bld)18.7 %NormalProMedica Rockwell HospitalComment on above:Performed By: #### CBCA, BMP ####[facility] ([id number])[address], [address], [place] [address]CMX (RBC) [Entitic mass]31.4 weVbpgiw63-24XgtQdunhm [facility] HospitalComment on above: Performed By: #### CBCA, BMP ####[facility] ([id number])[address], [address], [place] [address]NYPZ (RBC) [Mass/Vol]33.9 g/vWRfseyj24-52 [facility] HospitalComment on above:Performed By: #### CBCA, BMP ####[facility] ([id number])[address], [address], [place] [address]HFL (RBC) [Entitic vol]93 cHChsbru86-504TndNwrklp [facility] HospitalComment on above:Performed By: #### CBCA, BMP ####[facility] ([id number])[address], [address], [place] [address]Vwidesvye (Bld) [#/Vol]0.6 10*3/uLNormal0-0.9[facility] HospitalComment on above:Performed By: #### CBCA, BMP ####[facility] ([id number])[address], [address], [place] [address]Xwdotyytf/100 WBC (Bld)6.0 %NormalProMedica [facility] Comment on above:Performed By: #### CBCA, BMP ####[facility] ([id number])[address], [address], [place] [address]Mgqmraguizb/100 WBC (Bld) 73.3 %NormalProTrihealth Bethesda Butler Hospitalca [facility] HospitalComment on above:Performed By: #### CBCA, BMP ####[facility] ([id number])[address], [address] [place], [place] [address]Qyidclij mean volume (Bld) [Entitic vol]7.6 fLNormal7-12[facility] HospitalComment on above:Performed By: #### CBCA, BMP ####[facility] ([id number])[address], [address], [place] [address]Bnnltikpy (Bld) [#/Vol]192 10*3/cYEehpvj122-027YweJaheip [facility] HospitalComment on above: Performed By: #### CBCA, BMP ####[facility] ([id number])[address], [address], [place] [address]TSX COUNT4.36 X10E12/LNormal4.10-5.70 [facility] HospitalComment on above:Performed By: #### CBCA, BMP ####[facility] ([id number])[address], [address], [place] [address]NAK (Bld) [#/Vol]10.1 10*3/uLNormal4.0-11.0[facility] Comment on above:Performed By: #### TI, BMP ####[facility] ([id number])[address], [address], [place] [address]Gfpxbpr Glucometer (BldC) [Mass/Vol]on 22-06-2294Ztlgpav [Mass/Vol]143 mg/fQFkuo89-93FswLytffd [facility] HospitalGlucose [Mass/Vol]163 mg/aPOahl54-78FvbChthpv [facility] HospitalGlucose [Mass/Vol]105 mg/hDEjzm65-52WxkVnpnij [facility] HospitalGlucose [Mass/Vol]164 mg/dL Wceo95-39EqzKjqfor [facility] HospitalBASIC METABOLIC PANLon 47-83-1990Zmawh gap [Moles/Vol]10 mmol/LNormal5-15[facility] HospitalComment on above: Performed By: #### TI, BMP ####[facility] ([id number])[address], [address], [place] [address]Brdgayo [Mass/Vol]9.4 mg/dLNormal8.5-10.5 [facility] HospitalComment on above:Performed By: #### TI, BMP ####[facility] ([id number])[address], [address], [place] [address]Hueveads [Moles/Vol]103 mmol/VGneskl00-678PgxLcqtgw [facility] HospitalComment on above:Performed By: #### TI, BMP ####[facility] ([id number])[address], [address], [place] [address]KO6 [Moles/Vol]25 mmol/L Ptmeqm82-69JlwIctdje [facility] HospitalComment on above:Performed By: #### TI, BMP ####[facility] ([id number])[address], [address] [place], [place] [address]Rgpnyfjtpm [Mass/Vol]0.59 mg/dLLow0.60-1.30[facility] HospitalComment on above:Result Comment: METHOD TRACEABLE TO IDMS STANDARD Performed By: #### TI, BMP ####[facility] ([id number])[address] [address]eXWG (CKD-EPI) NON-RACE DEPENDENT>90Normal >59[facility] HospitalComment on above:Result Comment: Reported eGFR is based on theCKD-EPI 2020 equation that doesnot use a race coefficient.Performed By: #### TI, BMP ####[facility] ([id number])[address] [address]Hzlqqqp [Mass/Vol]126 mg/aBKimy07-49MzeQehwua [place] HospitalComment on above:Performed By: #### TI BMP ####[facility] ([id number])[address] [address]Hvmvhiqix [Moles/Vol]4.0 mmol/LNormal3.5-5.0ProTri[facility] Hospitalca [facility] HospitalComment on above: Performed By: #### TI, BMP ####[facility] ([id number])[address] [address]Dfatut [Moles/Vol]138 mmol/EEnhmgb252-381 [facility] HospitalComment on above:Performed By: #### TI, BMP ####[facility] ([id number])[address] [address]Qqcf nitrogen [Mass/Vol]34 mg/dLHigh5-27Pro[facility] HospitalComment on above:Performed By: #### TI, BMP ####[facility] ([id number])[address] [address]USL AND AUTO DIFFon 55-60-6380SBVRWFCW BASOPHIL0.1 X10E9/LNormal0.0-0.2[facility] Comment on above:Performed By: #### CBCA, BMP ####[facility] ([id number])[address], [address] [place] [address]SKLJPSTU NEUTROPHIL8.9 X10E9/LHigh1.5-6.6ProSelect [facility] Hospital, AvonComment on above:Performed By: #### CBCA, BMP ####[facility] ([id number])[address], [address] [place] [address]Nyrvxjuad/100 WBC (Bld)0.5 %NormalProSelect Medical [facility] [place] Comment on above:Performed By: #### CBCA, BMP ####[facility] ([id number])[address] [address] [place] [address]Flqfgupystg (Bld) [#/Vol] 0.1 10*3/uLNormal0.0-0.4Pro[facility] Hospital, AvonComment on above:Performed By: #### CBCA, BMP ####[facility] ([id number])[address] [address] [place] [address]Xqtozufdfyl/100 WBC (Bld)1.1 %NormalProKindred Healthcare HospitalComment on above:Performed By: #### CBCA, BMP ####[facility] ([id number])[address] [address] [place] [address]Zuhhsuwrywb distribution width (RBC) [Ratio]16.0 %High11.5-15.0[facility] Comment on above:Performed By: #### CBCA, BMP ####[facility] ([id number])[address] [address] [place] [address]Trzoyfkmpg (Bld) [Volume fraction]42.2 %Upsmoh32-08VmsFwqzinSelect Medical Cleveland Clinic Rehabilitation Hospital, AvonComment on above:Performed By: #### CBCA, BMP ####[facility] ([id number])[address], [address], [place] [address]Dodmfurken (Bld) [Mass/Vol]14.0 g/oZBynvrw55.0-17.0 [facility] HospitalComment on above:Performed By: #### CBCA, BMP ####[facility] ([id number])[address], [address], [place] [address]Mespldlfikl (Bld) [#/Vol]2.1 10*3/uLNormal1.0-3.5[facility] Comment on above:Performed By: #### CBCA, BMP ####[facility] ([id number])[address], [address], [place] [address]Khrtrgvqiwl/100 WBC (Bld) 17.6 %NormalProTrihealth Bethesda Butler Hospitalca [place] HospitalComment on above:Performed By: #### CBCA, BMP ####[facility] ([id number])[address], [address]T [facility], [place] [address]GQZ (RBC) [Entitic mass]30.8 jsAwjwzl95-97FxuDgpvrz [facility] HospitalComment on above:Performed By: #### CBCA, BMP ####[facility] ([id number])[address], [address], [place] [address]VTSL (RBC) [Mass/Vol]33.2 g/aYYjggcl14-79NqiJptrvd [facility] HospitalComment on above: Performed By: #### CBCA, BMP ####[facility] ([id number])[address], [address], [place] [address]QCD (RBC) [Entitic vol]93 oLDxkixv04-276 ProMNation[facility] HospitalComment on above:Performed By: #### CBCA, BMP ####[facility] ([id number])[address], [address], [place] [address]Qwedqbobv (Bld) [#/Vol]0.7 10*3/uLNormal0-0.9[facility] Comment on above:Performed By: #### CBCJenni, BMP ####[facility] ([id number])[address], [address] [place] [address]Wczysfbpx/100 WBC (Bld)6.2 %NormalProMedica Rockwell HospitalComment on above:Performed By: #### CBCJenni, BMP ####[facility] ([id number])[address], [address], [place] [address]Psdofdtkxsg/100 WBC (Bld)74.6 %NormalProMedica Rockwell HospitalComment on above:Performed By: #### CBCJenni, BMP ####[facility] ([id number])[address], [address] [place] [address]Dspkkrff mean volume (Bld) [Entitic vol]7.8 fLNormal7-12[facility] HospitalComment on above:Performed By: #### CBCJenni, BMP ####[facility] ([id number])[address], [address] [place] [address]Hyhzlucgk (Bld) [#/Vol]195 10*3/eCSradvb171-687 [facility] HospitalComment on above:Performed By: #### CBCJenni, BMP ####[facility] ([id number])[address], [address] [place] [address]IOB COUNT4.55 X10E12/LNormal4.10-5.70[facility] HospitalComment on above:Performed By: #### CBCJenni, BMP ####[facility] ([id number])[address], [address] [place] [address]GAQ (Bld) [#/Vol]11.9 10*3/uLHigh4.0-11.0[facility] HospitalComment on above:Performed By: #### CBCA, BMP ####[facility] ([id number])[address] [facility], [address] [place] [address]Tuutect Glucometer (BldC) [Mass/Vol]on 55-38-5897Badsgmu [Mass/Vol]189 mg/aNWzwf25-55XztVnndnz [facility] HospitalGlucose [Mass/Vol]89 mg/dL Pviivk88-16QozNujyrv [facility] HospitalGlucose [Mass/Vol]110 mg/eXCztw49-37 [facility] HospitalGlucose [Mass/Vol]119 mg/kNHqbp31-55PofBspduz [facility] HospitalGlucose [Mass/Vol]108 mg/kEUbja40-29VtqNgzlqf [facility] HospitalGlucose [Mass/Vol]134 mg/fWLccw78-75JdoZrajqw [facility] HospitalMagnesium Ionized ISE (Bld) [Moles/Vol]on 82-22-0610Mnmmcinut [Moles/Vol]0.55 mmol/LNormal0.45-0.74 [facility] HospitalComment on above:Result Comment: NEW REFERENCE RANGE Performed By: #### [id number] ####[facility] ([id number])0 [facility], [address] [place] [address]HNIDQKJEAVmp 76-42-4022Dmjbxwdbl [Mass/Vol] 3.9 mg/dLNormal2.4-4.9Pro[facility] HospitalComment on above:Performed By: #### [id number] ####[facility] ([id number])0 [facility], [address] [place] [address]UO ABDOMEN AP 1 VWon 21-96-0834GO ABDOMEN AP 1 VWNormal ProMTrinity Health System East CampusBASIC METABOLIC PANLon 75-17-5897Fkraj gap [Moles/Vol] 10 mmol/LNormal5-15[facility] HospitalComment on above:Performed By: #### CBCA, BMP ####[facility] ([id number])[address] [facility], [address], [place] [address]Mcsrcuh [Mass/Vol]9.3 mg/dLNormal8.5-10.5PSalem [facility] Hospital HospitalComment on above:Performed By: #### TI, BMP ####[facility] ([id number])[address], [place] [address]Anhfvqnd [Moles/Vol]104 mmol/GKcutyi75-233SuxWgjsgg [place] HospitalComment on above: Performed By: #### TI, BMP ####[facility] ([id number])[address], [place] [address]FB[address] [Moles/Vol]25 mmol/RXykblt97-13QewThiatu [place] HospitalComment on above:Performed By: #### TI, BMP ####[facility] ([id number])[address] [address] [address] Creatinine [Mass/Vol]0.56 mg/dLLow0.60-1.30Pro[facility] HospitalComment on above:Result Comment: METHOD TRACEABLE TO IDMS STANDARDPerformed By: #### TI BMP ####[facility] ([id number])[address] [address] [place], [place] [address]aGXJ (CKD-EPI) NON-RACE DEPENDENT>90Normal>59ProKindred Healthcare HospitalComment on above:Result Comment: Reported eGFR is based on theCKD-EPI 2020 equation that doesnot use a race coefficient.Performed By: #### TI, BMP ####[facility] ([id number])[address], [place] [address]Gtpaxbo [Mass/Vol]96 mg/mZBhgysq94-33BhvWfpxud [place] HospitalComment on above:Performed By: #### TI, BMP ####[facility] ([id number])[address], [place] [address]Llttfdwfe [Moles/Vol]4.0 mmol/LNormal3.5-5.0[facility] HospitalComment on above:Performed By: #### CBCJenni, BMP ####[facility] ([id number])[address] [place] [address]Oritsj [Moles/Vol]139 mmol/YKanxfq215-483PwlSbxhmb [facility] HospitalComment on above:Performed By: #### CBCJenni, BMP ####[facility] ([id number])[address], [address] [place] [address]23[address]Kulf nitrogen [Mass/Vol]33 mg/dLHigh5-27[facility] HospitalComment on above:Performed By: #### CBCJenni, BMP ####[facility] ([id number])[address], [address] [place] [address]BDB AND AUTO DIFFon [id number] BASOPHIL0.0 X10E9/LNormal0.0-0.2[facility] HospitalComment on above:Performed By: #### CBCJenni, BMP ####[facility] ([id number])[address], [address] [place] [address]40[address]RPGNUTSL NEUTROPHIL9.5 X10E9/LHigh1.5-6.6[facility] HospitalComment on above:Performed By: #### CBCJenni, BMP ####[facility] ([id number])[address], [address] [place] [address]Xrfblukfe/100 WBC (Bld)0.3 %NormalProMedica Rockwell HospitalComment on above:Performed By: #### CBCJenni, BMP ####[facility] ([id number])[address], [address] [place] [address]Cyyhjcpbvkz (Bld) [#/Vol]0.1 10*3/uLNormal0.0-0.4[facility] HospitalComment on above:Performed By: #### CBCJenni, BMP ####[facility] ([id number])[address], [address] [place] [address] Eosinophils/100 WBC (Bld)0.7 %NormalProMedica Rockwell HospitalComment on above: Performed By: #### CBCA, BMP ####[facility] ([id number])[address], [address] [place] [address]Iikvpqrdyas distribution width (RBC) [Ratio] 15.8 %High11.5-15.0[facility] HospitalComment on above:Performed By: #### CBCA, BMP ####[facility] ([id number])[address], [address] [place] [address]Maxglitanh (Bld) [Volume fraction]40.4 %Hrgbbl80-24RkrTtsszd [facility] HospitalComment on above:Performed By: #### CBCA, BMP ####[facility] ([id number])[address] [address] [place] [address] 32448Mrgwhguepd (Bld) [Mass/Vol]13.5 g/jDMzesio36.0-17.0ProMedica Rockwell HospitalComment on above:Performed By: #### CBCA, BMP ####[facility] ([id number])[address], [address] [place] [address] 13149Plsmyxbpfdg (Bld) [#/Vol] 2.2 10*3/uLNormal1.0-3.5ProMedica Rockwell HospitalComment on above:Performed By: #### CBCA, BMP ####[facility] ([id number])[address], [address] [place] [address] 95567Anygtugmrya/100 WBC (Bld)17.3 %NormalProMedica Rockwell HospitalComment on above:Performed By: #### CBCA, BMP ####[facility] ([id number])[address], [address] [place] [address] 33259AIW (RBC) [Entitic mass]30.9 gmBzgatb95-07OrrDykzph [facility] HospitalComment on above: Performed By: #### CBCA, BMP ####[facility] ([id number])[address], [address] [place] [address] 81217LQLA (RBC) [Mass/Vol]33.4 g/fWWcorbc55-08 [facility] HospitalComment on above:Performed By: #### CBCA, BMP ####[facility] ([id number])[address], [address] [place] [address] 92189XUN (RBC) [Entitic vol]93 zVPduolr92-269VcmPclfkl [facility] HospitalComment on above:Performed By: #### CBCA, BMP ####[facility] ([id number])[address], [address] [place] [address] 46549Uasdvnvpv (Bld) [#/Vol]0.7 10*3/uLNormal0-0.9ProMedica Rockwell HospitalComment on above:Performed By: #### CBCA, BMP ####[facility] ([id number])[address], [address] [place] [address] 51246Eqpugyjln/100 WBC (Bld)5.9 %NormalProMedica Rockwell Hospital Comment on above:Performed By: #### CBCA, BMP ####[facility] ([id number])[address], [address] [place] [address] 85721Wnepaarqdmj/100 WBC (Bld) 75.8 %NormalProMedica Rockwell HospitalComment on above:Performed By: #### CBCA, BMP ####[facility] ([id number])[address], [address], [place] [address]Ylbuzwaq mean volume (Bld) [Entitic vol]7.9 fLNormal7-12ProMedica Rockwell HospitalComment on above:Performed By: #### CBCJenni, BMP ####[facility] ([id number])[address], [address] [place] [address] 79191Vyqqpwexg (Bld) [#/Vol]200 10*3/gPQdlzti600-460ArzJcolna [facility] HospitalComment on above: Performed By: #### TI, BMP ####[facility] ([id number])[address], [address] [place] [address] 80806VGY COUNT4.37 X10E12/LNormal4.10-5.70 [facility]well HospitalComment on above:Performed By: #### TI, BMP ####[facility] ([id number])[address], [address] [place] [address] 80159ODT (Bld) [#/Vol]12.5 10*3/uLHigh4.0-11.0ProMedica Rockwell HospitalComment on above:Performed By: #### TI, BMP ####[facility] ([id number])[address], [address] [place] [address] 79172Vrtlgfu Glucometer (BldC) [Mass/Vol]on 88-74-1580Uwjiqur [Mass/Vol]123 mg/mGRspo14-44KnoNfkwar [facility] HospitalGlucose [Mass/Vol]119 mg/wWYzaw80-05KwpPvtojq [facility] HospitalGlucose [Mass/Vol]131 mg/pXQwnr89-07LqwYojlac [facility] HospitalGlucose [Mass/Vol]155 mg/dL Lzox02-11HrzTbrxqk [facility] HospitalGlucose [Mass/Vol]190 mg/pLRfej75-93ZuqTwfzmq [facility] HospitalGlucose [Mass/Vol]116 mg/fGSlff88-77VuzBknpce [facility] Glucose [Mass/Vol]112 mg/xCJwqw96-48KvtTwtljw [facility] HospitalGlucose [Mass/Vol] 144 mg/sWDzto45-11OloKpfmvf [facility] HospitalGlucose [Mass/Vol]137 mg/wEVpok22-19 [facility] HospitalURINALYSISon 76-05-1815Omeeqigrs Ql (U)NegativeNormal NEGProMedica Rockwell HospitalComment on above:Performed By: #### UA ####[facility] ([id number])[address], [address] [address] BLOOD/HGBNegativeNormalNEGProMedica Rockwell HospitalComment on above:Performed By: #### UA ####[facility] ([id number])[address], [address] [address]Dyzlf (U)YELLOWNormalYELLOWProMedica Rockwell HospitalComment on above:Performed By: #### UA ####[facility] ([id number])0 [facility], [address] [address]Srwbhtn Ql (U)70 mg/dLAbnormalNEGProMedica Hayden HospitalComment on above:Performed By: #### UA ####[facility] ([id number])[address], [address] [address]Wxmsfnz Ql (U) NegativeNormalNEGProMedica Hayden HospitalComment on above:Performed By: #### UA ####[facility] ([id number])[address], [address] [address]Etlkiavdk esterase Test strip Ql (U)NegativeNormalNEGProMedica Rockwell HospitalComment on above:Performed By: #### UA ####[facility] ([id number])[address], [address] [address]Whkdjur Ql (U)NegativeNormal NEGProMedica Rockwell HospitalComment on above:Performed By: #### UA ####[facility] ([id number])[address], [address] [address]lH (U) 5.0 [pH]Normal5.0-8.5ProMedica Rock[facility] HospitalComment on above:Performed By: #### UA ####[facility] ([id number])[address], [address] [place] [address] 49325Lkxrobw Ql (U)NegativeNormalNEGProKindred Healthcare Hospital Comment on above:Performed By: #### UA ####[facility] ([id number])[address], [address] [place] [address] 304[address]Abqhidpc gravity (U) [Rel density]1.004Dzvwps9.003-1.035ProKindred Healthcare HospitalComment on above: Performed By: #### UA ####[facility] ([id number])[address], [address] [place] [address]59[address]TCGNVMCPIGWCYDWcmtevMTJWQRuaYvvevw [facility] HospitalComment on above:Performed By: #### UA ####[facility] ([id number])[address], [address] [place] [address] 61060Pedjqgzxbx dipstick W Reflex Microscopic panel (U)URINE RECEIVED WITHOUT PRESERVATIVE-DELAYS IN TRANSPORT MAY AFFECT RESULTS.INTERPRET WITH CAUTION AND CLINICAL CORRELATION IS RECOMMENDED. NormalProKindred Healthcare HospitalComment on above:Performed By: #### UA ####[facility] ([id number])[address], [address] [place] [address] Urobilinogen (U) [Mass/Vol]mg/dLNormal<1.1Pro[facility]ica [facility]den HospitalComment on above:Performed By: #### UA ####[facility] ([id number])[address] [address] [place] [address] 11905YR CHEST 1 VWon 73-44-2715TQ CHEST 1 VWNormal [facility] AdministrationBASI METABOLIC PANLon 29-48-4717Tqkvq gap [Moles/Vol]8 mmol/LNormal5-15Pro[facility]red Healthcare HospitalComment on above:Performed By: #### CBCA, BMP ####[facility] ([id number])[address] [address], [place] [address]Fizbzel [Mass/Vol]9.2 mg/dLNormal8.5-10.5ProMedOhio State Health System HospitalComment on above:Performed By: #### TI, BMP ####[facility] ([id number])[address] [address], [place] [address]Mndvexio [Moles/Vol]105 mmol/VXbtliz15-467SgyRaerop [facility] HospitalComment on above: Performed By: #### TI, BMP ####[facility] ([id number])[address] [address], [place] [address]RM0 [Moles/Vol]26 mmol/XJiprhe80-86OrxZzkzay [facility] HospitalComment on above:Performed By: #### TI, BMP ####[facility] ([id number])[address] [address] [address] Creatinine [Mass/Vol]0.56 mg/dLLow0.60-1.30ProTri[facility] Butler Hospitalca [facility]den HospitalComment on above:Result Comment: METHOD TRACEABLE TO IDMS STANDARDPerformed By: #### TI, BMP ####[facility] ([id number])[address] [address] [facility], [place] [address]pFMH (CKD-EPI) NON-RACE DEPENDENT>90Normal>59ProMedica [facility]den HospitalComment on above:Result Comment: Reported eGFR is based on theCKD-EPI 2020 equation that doesnot use a race coefficient.Performed By: #### TI, BMP ####[facility] ([id number])[address] [address], [place] [address]Kfhfvid [Mass/Vol]99 mg/aWLyvxzv47-22NedHhmxla [facility] HospitalComment on above:Performed By: #### TI, BMP ####[facility] ([id number])[address] [address], [place] [address]Mpzbvthvw [Moles/Vol]4.0 mmol/LNormal3.5-5.0ProMedica [facility] HospitalComment on above:Performed By: #### TI, BMP ####[facility] ([id number])[address], [address] [place] [address]Cprhtb [Moles/Vol]139 mmol/MPgyrpz298-186FumIcucba [facility] HospitalComment on above:Performed By: #### CBCJenni, BMP ####[facility] ([id number])[address], [address] [place] [address] 940[address]Uecb nitrogen [Mass/Vol]33 mg/dLHigh5-27Pro[facility]ica [facility] HospitalComment on above:Performed By: #### TI, BMP ####[facility] ([id number])[address], [address] [place] [address] 960[address]HNU AND AUTO DIFFon 39-53-7384XAHPBUZZ BASOPHIL0.1 X10E9/LNormal0.0-0.2Pro[facility] HospitalComment on above:Performed By: #### TI, BMP ####[facility] ([id number])[address] [address] [place] [address] 99697SNIIKKYO NEUTROPHIL9.1 X10E9/LHigh1.5-6.6Pro[facility] HospitalComment on above:Performed By: #### CBCJenni, BMP ####[facility] ([id number])[address] [address] [place] [address] 43239Zzuzugwjl/100 WBC (Bld)0.5 %NormalProMedica Rockwell HospitalComment on above:Performed By: #### CBCJenni, BMP ####[facility] ([id number])[address], [address] [place] [address] 82736Cfreslhnifl (Bld) [#/Vol]0.1 10*3/uLNormal0.0-0.4Pro[facility]ica [facility] HospitalComment on above:Performed By: #### CBCA, BMP ####[facility] ([id number])[address], [address], [place] [address] Eosinophils/100 WBC (Bld)0.9 %NormalProMedica Rockwell HospitalComment on above: Performed By: #### CBCA, BMP ####[facility] ([id number])[address], [address], [place] [address]Uqwmissexga distribution width (RBC) [Ratio] 15.6 %High11.5-15.0Pro[facility]ica [facility] HospitalComment on above:Performed By: #### CBCA, BMP ####[facility] ([id number])[address], [address], [place] [address]Jntqwwbczd (Bld) [Volume fraction]39.2 %Fjbeip39-97GhoTkjncg [facility] HospitalComment on above:Performed By: #### CBCA, BMP ####[facility] ([id number])[address], [address], [place] [address]Iieroualcq (Bld) [Mass/Vol]12.9 g/dLLow13.0-17.0Pro[facility] HospitalComment on above: Performed By: #### CBCA, BMP ####[facility] ([id number])[address], [address], [place] [address]Afuxnpfoulv (Bld) [#/Vol]1.6 10*3/uLNormal 1.0-3.5Pro[facility] HospitalComment on above:Performed By: #### CBCA, BMP ####[facility] ([id number])[address], [address], [place] [address]Lhjhtfgmqry/100 WBC (Bld)13.6 %NormalProMedica Rockwell HospitalComment on above:Performed By: #### CBCA, BMP ####[facility] ([id number])[address], [address], [place] [address]ZKY (RBC) [Entitic mass] 30.6 lsCwgxoe82-33VutXlysmq [facility] HospitalComment on above:Performed By: #### CBCA, BMP ####[facility] ([id number])[address], [address], [place] [address]NXVN (RBC) [Mass/Vol]33.0 g/zXVebfmk48-04ZiyIdfcku [facility] HospitalComment on above:Performed By: #### CBCA, BMP ####[facility] ([id number])[address], [address], [place] [address]WEU (RBC) [Entitic vol]93 pJNdwedl93-371SheXojhba [facility] HospitalComment on above: Performed By: #### CBCA, BMP ####[facility] ([id number])[address], [address], [place] [address]Zrplmaozp (Bld) [#/Vol]0.7 10*3/uLNormal 0-0.9ProMedica [facility] HospitalComment on above:Performed By: #### CBCA, BMP ####[facility] ([id number])[address], [address] [place] [address] 050[address]Cwxsrahvz/100 WBC (Bld)5.9 %NormalProMedica Rockwell HospitalComment on above:Performed By: #### CBCA, BMP ####[facility] ([id number])[address], [address], [place] [address]Dczhpnuiaze/100 WBC (Bld) 79.1 %NormalProMedica Rockwell HospitalComment on above:Performed By: #### CBCA, BMP ####[facility] ([id number])[address], [address] [facility], [place] [address]Icaszgkc mean volume (Bld) [Entitic vol]8.0 fLNormal7-12Pro[facility] HospitalComment on above:Performed By: #### TI, BMP ####[facility] ([id number])[address], [address] [place] [address]Kxhwiwwxd (Bld) [#/Vol]186 10*3/lADwhifo580-276DasArrobp [facility] HospitalComment on above: Performed By: #### TI, BMP ####[facility] ([id number])[address], [address] [place] [address] 03298BJN COUNT4.22 X10E12/LNormal4.10-5.70 [facility] HospitalComment on above:Performed By: #### TI, BMP ####[facility] ([id number])[address], [address] [place] [address] 63902FEF (Bld) [#/Vol]11.5 10*3/uLHigh4.0-11.0Pro[facility] HospitalComment on above:Performed By: #### TI, BMP ####[facility] ([id number])[address], [address] [address]CJ SWALLOW MOTILITY FUNCTIONon 17-32-9652VK SWALLOW MOTILITY FUNCTIONNormalAccess Hospital Dayton Glucose Glucometer (BldC) [Mass/Vol]on 57-40-8662Idmhkqj [Mass/Vol]133 mg/dLHigh 65-99Pro[facility] HospitalGlucose [Mass/Vol]139 mg/bTQacp30-32IcnYgqjpn [facility] HospitalGlucose [Mass/Vol]173 mg/bXLujz94-98DnsLqbcpc [facility] Glucose [Mass/Vol]106 mg/qIUcel46-60IxtZnwols [facility] HospitalGlucose [Mass/Vol] 210 mg/dPCmel38-90GjoGqidzy [facility] HospitalGlucose [Mass/Vol]88 mg/oRKkwsvt91-97 ProMedicMcCullough-Hyde Memorial HospitalBASIC METABOLIC PANLon 33-79-6743Oadms gap [Moles/Vol]8 mmol/LNormal5-15[facility] HospitalComment on above:Performed By: #### TI, BMP ####[facility] ([id number])[address] [address] [place] [address]Syouekc [Mass/Vol]9.1 mg/dLNormal8.5-10.5Pro[facility] HospitalComment on above:Performed By: #### TI, BMP ####[facility] ([id number])[address], [address], [place] [address]Rvtveuik [Moles/Vol]107 mmol/DTpxzdq54-998CfnKhehqe [facility] HospitalComment on above: Performed By: #### TI, BMP ####[facility] ([id number])[address] [address], [place] [address]TK5 [Moles/Vol]25 mmol/FGdgdax16-49GarJnkccn [facility] HospitalComment on above:Performed By: #### TI BMP ####[facility] ([id number])[address] [address] Creatinine [Mass/Vol]0.63 mg/dLNormal0.60-1.30Pro[facility] Hospitalca [facility] HospitalComment on above:Result Comment: METHOD TRACEABLE TO IDMS STANDARDPerformed By: #### TI, BMP ####[facility] ([id number])[address] [address], [place] [address]hWHQ (CKD-EPI) NON-RACE DEPENDENT>90Normal>59ProMedica [facility] HospitalComment on above:Result Comment: Reported eGFR is based on theCKD-EPI 2020 equation that doesnot use a race coefficient.Performed By: #### TI, BMP ####[facility] ([id number])[address] [address], [place] [address]Sxldesd [Mass/Vol]150 mg/zSJqxo61-91HkgToojic [facility] HospitalComment on above:Performed By: #### CBCJenni, BMP ####[facility] ([id number])[address], [address] [place] [address]Pgdlozcst [Moles/Vol]3.9 mmol/LNormal3.5-5.0Pro[facility] HospitalComment on above:Performed By: #### CBCJenni, BMP ####[facility] ([id number])[address], [address], [place] [address]Hubiey [Moles/Vol]140 mmol/ILdewrn004-910IsuYqpywk [facility] HospitalComment on above:Performed By: #### TI, BMP ####[facility] ([id number])[address], [address] [place] [address] 43[address]Owjn nitrogen [Mass/Vol]36 mg/dLHigh5-27Pro[facility] HospitalComment on above:Performed By: #### CBCJenni, BMP ####[facility] ([id number])[address], [address] [place] [address] 11777PKP AND AUTO DIFFon 30-11-0330EFEBFCCJ BASOPHIL0.0 X10E9/LNormal0.0-0.2[facility] HospitalComment on above:Performed By: #### CBCJenni, BMP ####[facility] ([id number])[address], [address] [place] [address] 964[address]CULAKLUV NEUTROPHIL9.3 X10E9/LHigh1.5-6.6Pro[facility] HospitalComment on above:Performed By: #### CBCJenni, BMP ####[facility] ([id number])[address], [address] [place] [address] 29364Xfwbsyypi/100 WBC (Bld)0.2 %NormalProMedica Rockwell HospitalComment on above:Performed By: #### CBCJenni, BMP ####[facility] ([id number])[address] [address] [place] [address] 9[address]Zhesaludhbm (Bld) [#/Vol]0.1 10*3/uLNormal0.0-0.4Pro[facility] HospitalComment on above:Performed By: #### CBCA, BMP ####[facility] ([id number])[address] [address] Eosinophils/100 WBC (Bld)0.7 %NormalProMedica Hayden HospitalComment on above: Performed By: #### CBCA, BMP ####[facility] ([id number])[address] [address] [place] [address]Jayokvifnrn distribution width (RBC) [Ratio] 16.0 %High11.5-15.0ProTrihealth [facility] Hospitalca [facility] HospitalComment on above:Performed By: #### CBCA, BMP ####[facility] ([id number])[address] [address]Eqrntcgykn (Bld) [Volume fraction]37.8 %Ycl85-45RrnNhymkc [facility] HospitalComment on above:Performed By: #### CBCA, BMP ####[facility] ([id number])[address] [address]Rczmwjkvlc (Bld) [Mass/Vol]12.6 g/dLLow13.0-17.0ProTrihealth [facility] Hospitalca [facility] HospitalComment on above: Performed By: #### CBCA, BMP ####[facility] ([id number])[address] [address]Ivdzsnwuttk (Bld) [#/Vol]1.6 10*3/uLNormal 1.0-3.5Pro[facility] HospitalComment on above:Performed By: #### CBCA, BMP ####[facility] ([id number])[address] [place] [address] 47293Thhvxvmqytu/100 WBC (Bld)13.6 %NormalProMedica Rockwell HospitalComment on above:Performed By: #### CBCA, BMP ####[facility] ([id number])[address], [address] [place] [address]MQD (RBC) [Entitic mass] 31.0 dwZrkxik92-31OstGzurvi [facility] HospitalComment on above:Performed By: #### CBCA, BMP ####[facility] ([id number])[address], [address] [place] [address]CXHM (RBC) [Mass/Vol]33.3 g/nRIarydd12-46DjgUzjurj [facility] HospitalComment on above:Performed By: #### CBCA, BMP ####[facility] ([id number])[address], [address] [place] [address]BKO (RBC) [Entitic vol]93 cAKdewpt32-471CmqMmuubt [facility] HospitalComment on above: Performed By: #### CBCA, BMP ####[facility] ([id number])[address], [address] [place] [address] 136[address]Inwyvqmeo (Bld) [#/Vol]0.8 10*3/uLNormal 0-0.9Pro[facility]ica [facility] HospitalComment on above:Performed By: #### CBCA, BMP ####[facility] ([id number])[address], [place] [address]Pvyvoxzfw/100 WBC (Bld)6.5 %NormalProMedica Rockwell HospitalComment on above:Performed By: #### CBCA, BMP ####[facility] ([id number])[address], [place] [address]Nxdkaarszgx/100 WBC (Bld) 79.0 %NormalProMedica Rockwell HospitalComment on above:Performed By: #### CBCA, BMP ####[facility] ([id number])[address], [place] [address]Uilyicpf mean volume (Bld) [Entitic vol]8.4 fLNormal7-12Pro[facility] HospitalComment on above:Performed By: #### CBCJenni, BMP ####[facility] ([id number])[address], [address] [place] [address]Wizavgczn (Bld) [#/Vol]195 10*3/oVXyeuec730-830QmhSxgarn [facility] HospitalComment on above: Performed By: #### TI, BMP ####[facility] ([id number])[address], [address] [place] [address] 11169TJR COUNT4.06 X10E12/LLow4.10-5.70Pro[facility] Rockwell HospitalComment on above:Performed By: #### TI, BMP ####[facility] ([id number])[address], [address] [place] [address] 35985QHH (Bld) [#/Vol]11.8 10*3/uLHigh4.0-11.0Pro[facility] Rockwell HospitalComment on above: Performed By: #### CBCJenni, BMP ####[facility] ([id number])[address], [address] [place] [address] 32273Cdxwhqv Glucometer (BldC) [Mass/Vol]on 10-63-2774Qwombsq [Mass/Vol]126 mg/yEDgwp30-77RsiBvhzko [facility] HospitalGlucose [Mass/Vol]147 mg/ePYhrg60-16VdrFyrdyc [facility] HospitalGlucose [Mass/Vol]165 mg/dL Dmnv35-79YylHwmzpe [facility] HospitalGlucose [Mass/Vol]157 mg/pVZpvg15-05AiiOcqndd [facility] HospitalGlucose [Mass/Vol]115 mg/pYRjad23-96ZqcNqzzla [facility] Glucose [Mass/Vol]147 mg/rFDyqd60-65UqkSrytkp [facility] HospitalARTERIAL BLOOD GAS on 89-38-1040YBGGC'S TESTPassNormalProMedica Rockwell HospitalComment on above: Performed By: #### ABG ####[facility] ([id number])[address] [facility] [facility], [place] [address]ZQWM,DEFICIT1.0 MMOL/LNormal0.0-2.0Pro[facility] Hospitalca [facility] Comment on above:Performed By: #### ABG ####[facility] ([address] [place] [address])[address] [facility], [place] [address]Amrv ikcwadncwxv40.6 [degF]Normal 37.0Pro[facility]ica Hayden HospitalComment on above:Performed By: #### ABG ####[facility] ([address] [place] [address] [facility] [place], [place] [address]UYS4 (Bld) [Moles/Vol]23.2 mmol/AXapyfw84-87MctRokkco [facility] HospitalComment on above: Performed By: #### ABG ####[facility] ([address] [place] [address])[address] [facility], [place] [address]UXAR. O2 CONC.44 %NormalProMedica Hayden HospitalComment on above:Performed By: #### ABG ####[facility] ([id number])[address] [facility], [place] [address]Yoxagu (Bld) [Partial pressure]98 mm[Hg]Eohkum17-103 [facility]den HospitalComment on above:Performed By: #### ABG ####[facility] ([address] [place] [address])[address] [facility], [place] [address]Uzyttd saturation in Blood98.0 %Normal>90ProMedica Hayden HospitalComment on above: Performed By: #### ABG ####[facility] ([id number])[address] [facility] [place], [place] [address]LZVZYH SOURCENCNormalProMedica Hayden HospitalComment on above:Performed By: #### ABG ####[facility] ([id number])[address] [place], [place] [address]DJS055.4 LCGPFhvuyk13-55DjqMqpaqh [facility] Comment on above:Performed By: #### ABG ####[facility] ([id number])[address] [place], [place] [address]mT (Bld)7.425 [pH]Normal7.350-7.450 [facility] HospitalComment on above:Performed By: #### ABG ####[facility] ([id number])[address] [place], [place] [address]GDMFPU SITELRad NormalProKindred Healthcare HospitalComment on above:Performed By: #### ABG ####[facility] ([id number])[address] [place] [address] SAMPLE TYPEARTERIALNormalProTrihealth [facility] Hospitalca [facility] HospitalComment on above:Performed By: #### ABG ####[facility] ([id number])[address] [place], [place] [address]BLKDU METABOLIC PANLon 97-82-4254Ifddm gap [Moles/Vol]10 mmol/LNormal5-15 [facility] HospitalComment on above:Performed By: #### CBCJenni, BMP ####[facility] ([id number])[address] [facility] [address], [place] [address]Nyfbcfs [Mass/Vol]9.3 mg/dLNormal8.5-10.5Pro[facility]ica [facility]den HospitalComment on above:Performed By: #### CBCA, BMP ####[facility] [facility] ([id number])0 [facility], [address], [place] [address]Vmifuska [Moles/Vol]106 mmol/BUjuxfp31-328ZdkAuzmgt [place] HospitalComment on above:Performed By: #### CBCA, BMP ####[facility] ([id number])[address], [place] [address]JO4 [Moles/Vol]21 mmol/TTtd79-79CqyTggmpc [facility] Comment on above:Performed By: #### TI, BMP ####[facility] ([id number])[address] [address]Dqiykfqcjg [Mass/Vol]0.72 mg/dLNormal0.60-1.30ProKindred Healthcare HospitalComment on above:Result Comment: METHOD TRACEABLE TO IDMS STANDARDPerformed By: #### TK LUKE ####[facility] ([id number])[address] [address]qOFJ (CKD-EPI) NON-RACE DEPENDENT>90Normal>59ProKindred Healthcare HospitalComment on above:Result Comment: Reported eGFR is based on theCKD-EPI 2020 equation that doesnot use a race coefficient.Performed By: #### TI, BMP ####[facility] ([id number])[address] [address]Vjpjydg [Mass/Vol]194 mg/oPEqip46-77DqdUpctda [place] HospitalComment on above:Performed By: #### TI, BMP ####[facility] ([id number])[address] [address]Klsfpuvdi [Moles/Vol]4.1 mmol/LNormal3.5-5.0ProKindred Healthcare HospitalComment on above:Performed By: #### TI, BMP ####[facility] ([id number])[address] [address]Twtsuj [Moles/Vol]137 mmol/YMjzcxl680-805EwsOiptmx [place] HospitalComment on above: Performed By: #### TI, BMP ####[facility] ([id number])[address], [address] [place] [address]Uhdi nitrogen [Mass/Vol]34 mg/dLHigh5-27 [facility] HospitalComment on above:Performed By: #### CBCA, BMP ####[facility] ([id number])[address], [address] [place] [address]FAQAG CULTUREon 71-53-6384Lcsueyrn identified Aer cx Nom (Bld)SPECIMEN NOTES SUBOPTIMAL VOLUME OF BLOOD COLLECTED, RESULTS MAY BE AFFECTED. CULTURE RESULTS NO GROWTH 5 DAYSNormalProTrihealth Bethesda Butler Hospitalca [place] HospitalComment on above:Performed By: #### 64650-8 ####[facility] ([id number])[address], [address] [place] [address]RJL AND AUTO DIFFon 39-72-5428EUINAIJH BASOPHIL0.1 X10E9/L Normal0.0-0.2[facility] HospitalComment on above:Performed By: #### CBCA, BMP ####[facility] ([id number])[address], [address], [place] [address]IVORPWZB NEUTROPHIL9.8 X10E9/LHigh1.5-6.6ProTrihealth [facility] Hospitalca [place] HospitalComment on above:Performed By: #### CBCA, BMP ####[facility] ([id number])[address] [address] [address] [place] [address]Ariqlaycr/100 WBC (Bld)0.6 %NormalProKindred Healthcare HospitalComment on above:Performed By: #### CBCA, BMP ####[facility] ([id number])[address] [address]Wukkliwzsfj (Bld) [#/Vol]0.0 10*3/uLNormal0.0-0.4ProKindred Healthcare HospitalComment on above:Performed By: #### CBCA, BMP ####[facility] ([id number])[address], [address], [place] [address] Eosinophils/100 WBC (Bld)0.2 %NormalProMedica Hayden HospitalComment on above: Performed By: #### CBCA, BMP ####[facility] ([id number])[address], [address], [place] [address]Zcnaohwwflb distribution width (RBC) [Ratio] 15.6 %High11.5-15.0ProTrihealth [facility] Hospitalca [facility] HospitalComment on above:Performed By: #### CBCA, BMP ####[facility] ([id number])[address], [address], [place] [address]Evasvhpscw (Bld) [Volume fraction]38.9 %Ulg77-13QzkYthzdt [facility] HospitalComment on above:Performed By: #### CBCA, BMP ####[facility] ([id number])[address], [address], [place] [address]Kdjrfbjswd (Bld) [Mass/Vol]12.8 g/dLLow13.0-17.0ProTri[facility] Hospitalca [place] HospitalComment on above: Performed By: #### CBCA, BMP ####[facility] ([id number])[address], [address] [place] [address]Ufrzwdpnnrr (Bld) [#/Vol]1.4 10*3/uLNormal 1.0-3.5[facility] HospitalComment on above:Performed By: #### CBCA, BMP ####[facility] ([id number])[address], [address], [place] [address]Dzbdrgqzlaf/100 WBC (Bld)11.9 %NormalProMedica Rockwell HospitalComment on above:Performed By: #### CBCA, BMP ####[facility] ([id number])[address], [address], [place] [address]XDN (RBC) [Entitic mass] 30.4 jySinanj89-19FgwBlsuxj [facility] HospitalComment on above:Performed By: #### CBCA, BMP ####[facility] ([id number])[address], [address], [place] [address]ECMR (RBC) [Mass/Vol]32.8 g/iRTbebku82-85VgpBvhryq [facility] HospitalComment on above:Performed By: #### CBCA, BMP ####[facility] ([id number])[address], [address], [place] [address]VEZ (RBC) [Entitic vol]93 cGElpnyh60-962MiuHdqwrj [facility] HospitalComment on above: Performed By: #### CBCA, BMP ####[facility] ([id number])[address], [address], [place] [address]Glhspzzyo (Bld) [#/Vol]0.6 10*3/uLNormal 0-0.9[facility] HospitalComment on above:Performed By: #### CBCA, BMP ####[facility] ([id number])[address], [address], [place] [address]Xxszyacjc/100 WBC (Bld)5.2 %NormalProMedica Rockwell HospitalComment on above:Performed By: #### CBCA, BMP ####[facility] ([id number])[address], [address], [place] [address]Izmpqamkufx/100 WBC (Bld) 82.1 %NormalProMedica Rockwell HospitalComment on above:Performed By: #### CBCA, BMP ####[facility] ([id number])[address], [address], [place] [address]Xdsmnxkt mean volume (Bld) [Entitic vol]8.7 fLNormal7-12[facility] HospitalComment on above:Performed By: #### CBCA, BMP ####[facility] ([id number])[address], [address] [place] [address]Cgnlbmbft (Bld) [#/Vol]210 10*3/oGWgnfhv435-335BiqQhwcjo [facility] HospitalComment on above: Performed By: #### TI, BMP ####[facility] ([id number])[address], [address] [place] [address]KHE COUNT4.20 X10E12/LNormal4.10-5.70 [facility] HospitalComment on above:Performed By: #### TI, BMP ####[facility] ([id number])[address], [address] [place] [address]QJS (Bld) [#/Vol]12.0 10*3/uLHigh4.0-11.0[facility] HospitalComment on above:Performed By: #### TI, BMP ####[facility] ([id number])[address], [address] [place] [address] 716[address]CR BRAIN WO CONTon 68-96-3906ZZ BRAIN WO CONTNormalProTrihealth Bethes[facility] Butler Hospitalca Rockwell HospitalGlucose Glucometer (BldC) [Mass/Vol]on 74-38-1301Rtmhusg [Mass/Vol]167 mg/wWShfy37-16XlhIezbwb [facility] HospitalGlucose [Mass/Vol]214 mg/fUFcat18-46CjdAltsbf [facility] Glucose [Mass/Vol]162 mg/nXDwuf33-65DjyBgoqos [facility] HospitalGlucose [Mass/Vol] 188 mg/bNZgta30-94MweJejbco [facility] HospitalGlucose [Mass/Vol]150 mg/uYHemq64-40 [facility] HospitalGlucose [Mass/Vol]184 mg/wIZorc03-96CxqQfhhdn [facility] HospitalAMMONIAon 48-16-8849Asniyqi (P) [Moles/Vol]46 umol/UClkrrc16-60UqqXmwfne [facility] HospitalComment on above:Result Comment: NEW REFERENCE RANGEPerformed By: #### 47277-6, 47757-8, LIVR, 2157-6, 73583-5, 2284-8, 2132-9, 95853-4 ####[facility] ([id number])[address], [address], [place] [address]VJRKV METABOLIC PANLon 38-84-1443Evpei gap [Moles/Vol]8 mmol/LNormal5-15 [facility] HospitalComment on above:Performed By: #### TK LUKE, 47750-6 ####[facility] ([id number])[address], [address], [place] [address]Twslrmo [Mass/Vol]9.2 mg/dLNormal8.5-10.5[facility] HospitalComment on above:Performed By: #### TK LUKE, 10367-6 ####[facility] ([id number])[address], [address], [place] [address]Ifsmabpm [Moles/Vol]107 mmol/LIpdqnc15-197QbnBsghll [facility] HospitalComment on above:Performed By: #### TK LUKE, 50549-1 ####[facility] ([id number])[address], [address], [place] [address]VA7 [Moles/Vol]23 mmol/VAuofgq88-38UznTfxllj [place] HospitalComment on above:Performed By: #### TK LUKE, 18860-3 ####[facility] ([id number])[address], [address], [place] [address] Creatinine [Mass/Vol]0.72 mg/dLNormal0.60-1.30[facility] HospitalComment on above:Result Comment: METHOD TRACEABLE TO IDMS STANDARDPerformed By: #### TK LUKE, 26654-0 ####[facility] ([id number])[address], [address], [place] [address]jGJI (CKD-EPI) NON-RACE DEPENDENT>90Normal>59[facility] HospitalComment on above:Result Comment: Reported eGFR is based on theCKD-EPI 2020 equation that doesnot use a race coefficient.Performed By: #### TK LUKE, 92859-9 ####[facility] ([id number])[address], [address], [place] [address]Tngvnic [Mass/Vol]193 mg/jXCtxf69-19StkZimeeb [facility] HospitalComment on above:Performed By: #### TK LUKE, 46878-6 ####[facility] ([id number])[address], [address], [place] [address] Potassium [Moles/Vol]4.2 mmol/LNormal3.5-5.0[facility] HospitalComment on above:Performed By: #### TK LUKE, 46917-5 ####[facility] ([id number])[address], [address], [place] [address]Twqvvj [Moles/Vol]138 mmol/RHrnibn958-503BflTwybeo [facility] HospitalComment on above:Performed By: #### TK LUKE, 03256-9 ####[facility] ([id number])[address], [address], [place] [address]Aajh nitrogen [Mass/Vol]34 mg/dLHigh5-27[facility] HospitalComment on above:Performed By: #### TK LUKE, 45054-3 ####[facility] ([id number])[address], [address], [place] [address]FVM AND AUTO DIFFon 78-19-4619SEHLTNBQ BASOPHIL0.0 X10E9/LNormal0.0-0.2[facility] HospitalComment on above:Performed By: #### TK LUKE, 34541-5 ####[facility] ([id number])[address], [address] [place] [address] ABSOLUTE NEUTROPHIL8.6 X10E9/LHigh1.5-6.6[facility] HospitalComment on above:Performed By: #### CBCTK [place], 40891-7 ####[facility] ([id number])[address], [address] [place] [address]Ulqnqsadq/100 WBC (Bld)0.2 %NormalProMedica Rockwell HospitalComment on above:Performed By: #### CBCTK [place], 32753-1 ####[facility] ([id number])[address], [address] [place] [address]Zzbqsqcryre (Bld) [#/Vol]0.0 10*3/uLNormal0.0-0.4[facility] HospitalComment on above:Performed By: #### CBCTK [place], 00587-2 ####[facility] ([id number])[address], [address] [place] [address] Eosinophils/100 WBC (Bld)0.4 %NormalProMedica Rockwell HospitalComment on above: Performed By: #### CBCJenni, TK, 96086-8 ####[facility] ([id number])[address], [address] [place] [address]Zuhnvxmypxt distribution width (RBC) [Ratio]16.0 %High11.5-15.0[facility] HospitalComment on above: Performed By: #### CBCA, TK, 69579-2 ####[facility] ([id number])[address], [address] [place] [address]Mmfpbepfll (Bld) [Volume fraction]38.6 %Gpx60-68FlhAlvawf [facility] HospitalComment on above:Performed By: #### CBCA, TK, 21442-4 ####[facility] ([id number])[address], [address] [place] [address]Jumnmqmlla (Bld) [Mass/Vol]12.8 g/dLLow 13.0-17.0[facility] HospitalComment on above:Performed By: #### CBCTK [place], 44655-5 ####[facility] ([id number])[address], [address] [place] [address]Aqnivyrikgj (Bld) [#/Vol]1.3 10*3/uLNormal1.0-3.5[facility] HospitalComment on above:Performed By: #### CBCTK [place], 65727-4 ####[facility] ([id number])[address], [address] [place] [address] Lymphocytes/100 WBC (Bld)12.1 %NormalProTrihealth Bethesda Butler Hospitalca [facility] HospitalComment on above: Performed By: #### CBCTK [place], 68226-1 ####[facility] ([id number])[address], [address] [place] [address] 26[address]OLS (RBC) [Entitic mass] 30.8 xrJkvser19-34GzjOzetfr [facility] HospitalComment on above:Performed By: #### CBCJenni BMP, 37869-6 ####[facility] ([id number])[address], [address] [place] [address]JFSW (RBC) [Mass/Vol]33.1 g/tKPonkdr18-38DfpHeczvr [facility] HospitalComment on above:Performed By: #### CBCA, BMP, 66828-6 ####[facility] ([id number])[address], [address], [place] [address]ZWL (RBC) [Entitic vol]93 vEShqfmj79-009RzsWtqcku [facility] HospitalComment on above: Performed By: #### CBCA, BMP, 91000-5 ####[facility] ([id number])[address], [address], [place] [address]Hcmfdnvoa (Bld) [#/Vol]0.5 10*3/uLNormal0-0.9[facility] HospitalComment on above:Performed By: #### CBCA, BMP, 81112-3 ####[facility] ([id number])[address], [address], [place] [address]Cwvhnxvek/100 WBC (Bld)5.1 %NormalProMedica Rockwell HospitalComment on above:Performed By: #### CBCA, BMP, 89472-9 ####[facility] ([id number])[address], [place] [address] Neutrophils/100 WBC (Bld)82.2 %NormalProMedica Rockwell HospitalComment on above: Performed By: #### CBCA, BMP, 41945-4 ####[facility] ([id number])[address], [address] [place] [address]Pmdlhbob mean volume (Bld) [Entitic vol]8.5 fLNormal7-12[facility] HospitalComment on above:Performed By: #### CBCA, BMP, 97275-2 ####[facility] ([id number])[address], [address] [place] [address]Kcizpbncv (Bld) [#/Vol]197 10*3/uLNormal 150-450[facility] HospitalComment on above:Performed By: #### CBCA, BMP, 28071-7 ####[facility] ([id number])[address], [address] [place] [address]ETY COUNT4.14 X10E12/LNormal4.10-5.70[facility] HospitalComment on above:Performed By: #### CBCA, BMP, 23983-1 ####[facility] ([id number])0 [facility], [address] [place] [address]JET (Bld) [#/Vol]10.4 10*3/uLNormal4.0-11.0[facility] HospitalComment on above:Performed By: #### CBCA, BMP, 00834-5 ####[facility] ([id number])0 [facility], [address] [place] [address]LG [Catalytic activity/Vol] on 57-45-5325VUO87 U/FCfvjby62-089GmxBwcxch [facility] HospitalComment on above: Performed By: #### 08531-6, 14636-0, LIVR, 2156-6, 38495-9, 2283-8, 2132-06, 11041-2 ####[facility] ([id number])0 [facility] [address] [place] [address]Jhxfwi [Mass/Vol]on 87-89-0437VUJXE ACID11.6 ng/mLNormal>5.8 [facility] HospitalComment on above:Result Comment: NEW REFERENCE RANGE Performed By: #### 69475-7, 24550-0, LIVR, 2156-6, 18077-8, 2283-8, 2132-06, 89853-2 ####[facility] ([id number])0 [facility], [address] [place] [address]Zxxsqio Glucometer (BldC) [Mass/Vol]on 86-82-5217[place] [Mass/Vol]166 mg/fAFlhb89-43NmnYawjwi [facility] HospitalGlucose [Mass/Vol]189 mg/dL Njfs50-39MasRdynxa [facility] HospitalGlucose [Mass/Vol]171 mg/jHKaqz79-06JfmYoogpr [facility] HospitalGlucose [Mass/Vol]238 mg/vNGufa63-49QmgIunfkm [facility] Glucose [Mass/Vol]188 mg/mHQeps46-65TyxTfapby [facility] HospitalGlucose [Mass/Vol] 201 mg/nVFppl29-61KrbPzbwiv [facility] HospitalLIVER PANELon 48-36-2351Teygfwm [Mass/Vol]3.3 g/dLNormal3.2-5.3[facility] HospitalComment on above: Performed By: #### 42090-8, 26851-7, LIVR, 2157-6, 51344-3, 2284-8, 2132-9, 48417-4 ####[facility] ([id number])[address], [place] [address]BYG [Catalytic activity/Vol]44 U/FBmsqhc42-143IzlRlfapx [facility] HospitalComment on above:Performed By: #### 40474-3, 18641-0, LIVR, 2157- 6, 26454-2, 2284-8, 213-9, 99966-4 ####[facility] ([id number])[address], [address], [place] [address]EVL [Catalytic activity/Vol]20 U/LNormal0-40[facility] HospitalComment on above:Performed By: #### 17866-1, 55426-1, LIVR, 2157-6, 23372-0, 2284-8, 213-9, 51510-7 ####[facility] ([id number])[address], [address], [place] [address]IIH [Catalytic activity/Vol]27 U/LNormal0-41[facility] Comment on above:Performed By: #### 45668-9, 33025-4, LIVR, 2157-6, 73796-9, 2284-8, 2132-9, 27576-1 ####[facility] ([id number])[address], [address], [place] [address]Syzgxiaaz [Mass/Vol]1.0 mg/dLNormal0.3-1.2 [facility] HospitalComment on above:Performed By: #### 04548-5, 85527-0, LIVR, 2157-6, 09396-9, 2284-8, 2131-9, 35307-6 ####[facility] ([id number])[address], [address], [place] [address]Bmrufocuv.direct [Mass/Vol] 0.2 mg/dLNormal0.0-0.4ProSelect Medical [facility] Clinic Rehabilitation Hospital, AvonComment on above:Performed By: #### 15200-4, 44177-9, LIVR, 2157-6, 08662-3, 2284-8, 2131-9, 10838-5 ####[facility] ([id number])[address], [address], [place] [address] Protein [Mass/Vol]6.4 g/dLNormal6.0-8.0ProSelect Medical [facility] Clinic Rehabilitation Hospital, AvonComment on above:Performed By: #### 38771-6, 22529-7, LIVR, 2157-6, 21504-6, 4-8, 2131- 9, 92169-0 ####[facility] ([id number])[address], [address] [place] [address]Iaqplgf (P chauncey) [Moles/Vol]on 91-62-4989ZHDISTI W/REFLEX1.1 mmol/LNormal0.4-2.0ProSelect Medical [facility] Hospital, AvonComment on above:Result Comment: Result did not trigger repeat Lactate,re-order if needed.Performed By: #### 56400-5, 96057-4, LIVR, 2157-6, 32512-4, 2284-8, 2131-9, 21453-5 ####[facility] ([id number])[address], [address], [place] [address] Procalcitonin IA [Mass/Vol]on 54-13-8789HRARXGODFJBGZ1.87 ng/mLHigh<0.05 [facility] DaytonComment on above:Result Comment: NOTE<0.50 ng/mL - Low risk of severe sepsis and/or septic shock.<2.00 ng/mL -Recommend retesting within 6-24 hours.>2.00 ng/mL - High risk of sepsis and/or septic shock. Performed By: #### 51215-9, 98752-6, LIVR, 2157-6, 16780-6, 2284-8, 2-9, 61732-6 ####[facility] ([id number])[facility], [address], [place] [address]Igkkexsm I.cardiac High sensitivity method [Mass/Vol]on HOUR TROP I, HIGH SFSNYGILQXO50 ng/LNormal<21ProSelect [facility], AvonComment on above:Performed By: #### CBCA, BMP, 05908-5 ####[facility] ([id number])[address], [place] [address] VITAMIN B12on 62-54-3954Qjgkgpsgy (Vitamin B12) [Mass/Vol]269 pg/kLFrvpft221-281 [facility] AdministrationComment on above:Performed By: #### 27975-0, 02818-7, LIVR, 7-6, 16855-0, 4-8, 2131-9, 85771-2 ####[facility] ([id number])[address], [place] [address]Jzzqzkt D+Metabolites [Mass/Vol]on 58-66-6770HHSPENS D 25 HYD TOT17.8 ng/hJVat24-992NteYykgwbSelect Medical Cleveland Clinic Rehabilitation Hospital, AvonComment on above:Result Comment: Vitamin D status 25 [place] Vitamin D Deficiency <20 ng/mLInsufficiency 20-29 ng/mLSufficiency 30-100 ng/mLToxicity >100 ng/mLNOTE: A pediatric reference range has not beenestablished by the mushroom cultivator of this kit.The [place] [employer] recommendsa Vitamin D level of = or >20ng/mL in infantsand children.Performed By: #### 89987-7, 13895-2, LIVR, 2157-6, 09423-2, 2284-8, 2132-9, 65838-2 ####[facility] ([id number])[address], [place] [address]NY CHEST 1 VWon [id number] CHEST 1 VW NormalProMedica Hayden HospitalBASIC METABOLIC PANLon 62-25-0392Dajed gap [Moles/Vol]11 mmol/LNormal5-15ProMedica Rockwell HospitalComment on above: Performed By: #### CBCJenni, BMP ####[facility] ([id number])[address], [address], [place] [address]Wvyobox [Mass/Vol]9.4 mg/dLNormal8.5-10.5 [facility]den HospitalComment on above:Performed By: #### CBCJenni, BMP ####[facility] ([id number])[address], [address] [address]Jzcgcwqo [Moles/Vol]106 mmol/IYldfez61-534FaxCduuaj [facility] HospitalComment on above:Performed By: #### CBCA, BMP ####[facility] ([id number])[address], [address], [place] [address]OH8 [Moles/Vol]22 mmol/L Sjvkhd15-83WbpHptbun Rockwell HospitalComment on above:Performed By: #### CBCA, BMP ####[facility] ([id number])[address], [address] [place], [place] [address]Uznxwroqia [Mass/Vol]0.96 mg/dLNormal0.60-1.30Pro[facility] Rockwell HospitalComment on above:Result Comment: METHOD TRACEABLE TO IDMS STANDARD Performed By: #### CBCA, BMP ####[facility] ([id number])[address], [address] [place] [address]QHU/1.73 sq M.predicted among non-blacks MDRD (S/P/Bld) [Vol rate/Area]87 mL/min/{1.73_m2}Normal>59ProMedica Hayden HospitalComment on above:Result Comment: Reported eGFR is based on theCKD-EPI 2020 equation that doesnot use a race coefficient.Performed By: #### TI, BMP ####[facility] ([id number])[address], [address] [place] [address]Nzdgqjc [Mass/Vol]242 mg/uWIdam27-91XjqOpytxs [facility]den HospitalComment on above:Performed By: #### TI, BMP ####[facility] ([id number])[address], [address] [place] [address]Maspzltlp [Moles/Vol]4.1 mmol/LNormal3.5-5.0ProTrihealth [facility] Hospitalca [facility]den HospitalComment on above:Performed By: #### TI, BMP ####[facility] ([id number])[address], [address] [place] [address]Fwadzy [Moles/Vol]139 mmol/BFzydlq305-944SknVwdfrq [facility]den HospitalComment on above:Performed By: #### TI, BMP ####[facility] ([id number])[address] [address] [place] [address]75[address]Uhtj nitrogen [Mass/Vol]41 mg/dLHigh5-27ProMedica Hayden HospitalComment on above:Performed By: #### TI, BMP ####[facility] ([id number])[address], [address] [place] [address]SOV AND AUTO DIFFon 08-57-8821QMHHTKEP BASOPHIL0.0 X10E9/LNormal0.0-0.2Pro[facility]ica [facility]den HospitalComment on above:Performed By: #### TI, BMP ####[facility] ([id number])[address], [place] [address]ZWJYSTBZ SYIDVWDTKA23.5 X10E9/LHigh1.5-6.6Pro[facility]ica Rockwell HospitalComment on above:Performed By: #### CBCA, BMP ####[facility] ([id number])[address], [place] [address]Zcicupswq/100 WBC (Bld)0.2 %NormalProMedica Rockwell HospitalComment on above:Performed By: #### CBCA, BMP ####[facility] ([id number])[address] [address] [place] [address]Ycqmrkldyuo (Bld) [#/Vol]0.0 10*3/uLNormal0.0-0.4Pro[facility] Rock[facility] HospitalComment on above:Performed By: #### CBCA, BMP ####[facility] ([id number])[address] [address] [place] [address]26 Eosinophils/100 WBC (Bld)0.2 %NormalProMedica Hayden HospitalComment on above: Performed By: #### CBCA, BMP ####[facility] ([id number])[address] [address] [place] [address]Njyutbtgtsq distribution width (RBC) [Ratio] 16.0 %High11.5-15.0ProMedica Rockwell HospitalComment on above:Performed By: #### CBCA, BMP ####[facility] ([id number])[address], [place] [address]Wzlfchvskd (Bld) [Volume fraction]40.0 %Dzsmwz89-67ZrpKmcmvy Rockwell HospitalComment on above:Performed By: #### CBCA, BMP ####[facility] ([id number])[address], [place] [address]Invuqkhzfx (Bld) [Mass/Vol]13.1 g/kQCrchlv82.0-17.0ProMedica [facility] HospitalComment on above:Performed By: #### CBCJenni, BMP ####[facility] ([id number])[address], [address] [place] [address] 32489Ieuzuolgskh (Bld) [#/Vol] 1.5 10*3/uLNormal1.0-3.5ProMedica [facility] HospitalComment on above:Performed By: #### CBCA, BMP ####[facility] ([id number])[address], [address], [place] [address]Ynzvepujzfp/100 WBC (Bld)9.5 %NormalProMedica Rockwell HospitalComment on above:Performed By: #### CBCA, BMP ####[facility] ([id number])[address], [address] [place] [address] 81951ZWQ (RBC) [Entitic mass]30.4 yxUczpjh99-29CwiCqitck [facility] HospitalComment on above: Performed By: #### CBCA, BMP ####[facility] ([id number])[address], [address] [place] [address] 05883SMCZ (RBC) [Mass/Vol]32.8 g/dKKojxum21-07 [facility] HospitalComment on above:Performed By: #### CBCA, BMP ####[facility] ([id number])[address], [address] [place] [address] 49667BBC (RBC) [Entitic vol]93 dJKgrozd55-839EobUnfchn [facility] HospitalComment on above:Performed By: #### CBCA, BMP ####[facility] ([id number])[address], [address] [place] [address] 93528Osmmohrbu (Bld) [#/Vol]0.7 10*3/uLNormal0-0.9ProMedica [facility] HospitalComment on above:Performed By: #### CBCA, BMP ####[facility] ([id number])[address], [address], [place] [address]Koxznikzc/100 WBC (Bld)4.3 %NormalProMedica [facility] Comment on above:Performed By: #### CBCA, BMP ####[facility] ([id number])[address], [address] [place] [address] 37908Oxjwtdlewlh/100 WBC (Bld) 85.8 %NormalProMedica Rockwell HospitalComment on above:Performed By: #### CBCA, BMP ####[facility] ([id number])[address], [address], [place] [address]Ymukkjvo mean volume (Bld) [Entitic vol]8.9 fLNormal7-12Pro[facility] HospitalComment on above:Performed By: #### CBCA, BMP ####[facility] ([id number])[address], [address] [place] [address] 42003Jjycucyiw (Bld) [#/Vol]212 10*3/nWAcwjsm938-783ZevFsatru [facility] HospitalComment on above: Performed By: #### CBCA, BMP ####[facility] ([id number])[address], [address] [place] [address] 60904RBE COUNT4.32 X10E12/LNormal4.10-5.70 [facility] HospitalComment on above:Performed By: #### CBCA, BMP ####[facility] ([id number])[address], [address] [place] [address] 95940FDW (Bld) [#/Vol]15.8 10*3/uLHigh4.0-11.0Pro[facility] HospitalComment on above:Performed By: #### CBCA, BMP ####[facility] ([id number])[address], [address] [place] [address] 16053BO BRAIN WO CONTon 58-81-1451OF BRAIN WO CONTNormalProMedica Rockwell HospitalGlucose Glucometer (BldC) [Mass/Vol]on 21-61-0859Cevthsb [Mass/Vol]221 mg/qRHtiq46-52GwwMnrtbe [facility] HospitalGlucose [Mass/Vol]215 mg/dWLsie81-60OvsBgssit [facility] Glucose [Mass/Vol]138 mg/bVHcgu24-45TmbVhwqzt [facility] HospitalGlucose [Mass/Vol] 206 mg/oAGjwz82-05TlbYnfdbl [facility] HospitalGlucose [Mass/Vol]219 mg/xYCwsy49-41 [facility] HospitalGlucose [Mass/Vol]217 mg/fJPdyn24-95XktBtgqem [facility] HospitalPROTIME AND INRon 35-07-2083XPX Coag (PPP) [Relative time]1.2 {INR}High 0.8-1.1ProMedOhio State Health System HospitalComment on above:Performed By: #### PINR ####[facility] ([id number])[address], [address] [place] [address] 47243FI Coag (PPP) [Time]14.4 sHigh9.8-13.2ProMedOhio State Health System HospitalComment on above:Performed By: #### PINR ####[facility] ([id number])[address], [address] [place] [address] 84575BPHGBOMLSGtd 06-72-9613Tydpopmel Ql (U) NegativeNormalNEGProMedica Rockwell HospitalComment on above:Performed By: #### UA ####[facility] ([id number])[address], [address] [place] [address]SAMSX/HGBLargeAbnormalNEGProMedica Rockwell HospitalComment on above: Performed By: #### UA ####[facility] ([id number])[address], [address] [place] [address] 13849Dcqke (U)YELLOWNormalYELLOWProMedica Rockwell HospitalComment on above:Performed By: #### UA ####[facility] ([id number])[address] [facility] [address] [place] [address] 97327Ydcafty Ql (U)NegativeNormal NEGProMedica Rockwell HospitalComment on above:Performed By: #### UA ####[facility] ([id number])[address] [facility], [address] [place] [address] Ketones Ql (U)NegativeNormalNEGProMedica Rockwell HospitalComment on above: Performed By: #### UA ####[facility] ([id number])[address] [facility] [address] [place] [address] 45193Lmhulzcrv esterase Test strip Ql (U)Negative NormalNEGProMedica Rockwell HospitalComment on above:Performed By: #### UA ####[facility] ([id number])[address] [facility] [address] [place] [address] 70101Sedzccj Ql (U)NegativeNormalNEGProMedica Rockwell HospitalComment on above: Performed By: #### UA ####[facility] ([id number])[address] [facility] [address] [place] [address] 25725eC (U)6.0 [pH]Normal5.0-8.5Pro[facility] HospitalComment on above:Performed By: #### UA ####[facility] ([id number])[address] [facility] [address] [place] [address] 76987Aymavis Ql (U)50 mg/dL AbnormalNEGProMedica Rockwell HospitalComment on above:Performed By: #### UA ####[facility] ([id number])[address] [facility] [address] [place] [address] 59221X.B.LCLTM240 /hpfHigh0-5Pro[facility] HospitalComment on above:Performed By: #### UA ####[facility] ([id number])[address], [address] [place] [address] 87418Scxnixlf gravity (U) [Rel density]1.727Hadbjg4.003-1.035 [facility] HospitalComment on above:Performed By: #### UA ####[facility] ([id number])[address], [address] [place] [address] 288[address] SQUAMOUS EPITHELIUM<0Guvrpg3-3DymBodosk [facility] HospitalComment on above: Performed By: #### UA ####[facility] ([id number])[address], [address] [place] [address] 06644TEAPZHQSSQKGLEUsymfgNMWACRtuNbkpxb [facility] HospitalComment on above:Performed By: #### UA ####[facility] ([id number])[address], [address] [place] [address] 15057Fcieeatayqlt Qn (U)2 {Man'U}/dLHigh<1.1ProMedOhio State Health System HospitalComment on above:Performed By: #### UA ####[facility] ([id number])[address], [address] [place] [address] 12069R.B.CELLS4 /hpfNormal0-5ProMedOhio State Health System HospitalComment on above:Performed By: #### UA ####[facility] ([id number])[address] [place] [address] 60212ANNDO CULTUREon 93-97-2347Sikvxwjr identified Cx Nom (U)CULTURE RESULTS NO GROWTH AT <1000 CFU/mLNormalProMedica Rockwell HospitalComment on above: Performed By: #### 630-4 ####[facility] ([id number])[address] [place] [address] 44548LMVFY METABOLIC PANLon 47-40-6391Jpsdj gap [Moles/Vol]11 mmol/LNormal5-15[facility] HospitalComment on above: Performed By: #### CBCA, BMP ####[facility] ([id number])[address], [address], [place] [address]Paptdkb [Mass/Vol]9.2 mg/dLNormal8.5-10.5 [facility] HospitalComment on above:Performed By: #### TI, BMP ####[facility] ([id number])[address], [address], [place] [address]Kosqocxx [Moles/Vol]107 mmol/LHkglvr63-872HzhYqcmcb [facility] HospitalComment on above:Performed By: #### TI, BMP ####[facility] ([id number])[address], [address], [place] [address]QV7 [Moles/Vol]24 mmol/L Dogjdf15-86KndKmrsyo [facility] HospitalComment on above:Performed By: #### TI, BMP ####[facility] ([id number])[address], [address] [place], [place] [address]Protoiwzpd [Mass/Vol]0.73 mg/dLNormal0.60-1.30[facility] HospitalComment on above:Result Comment: METHOD TRACEABLE TO IDMS STANDARD Performed By: #### TI, BMP ####[facility] ([id number])[address], [place] [address]qWEX (CKD-EPI) NON-RACE DEPENDENT>90Normal >59ProMedica [facility] HospitalComment on above:Result Comment: Reported eGFR is based on theCKD-EPI 2020 equation that doesnot use a race coefficient.Performed By: #### TI, BMP ####[facility] ([id number])[address], [place] [address]Prkbqur [Mass/Vol]141 mg/xDYrrl26-53YqdGkefba [facility] HospitalComment on above:Performed By: #### TI, BMP ####[facility] ([id number])[address], [address], [place] [address]Rcktfzaje [Moles/Vol]4.0 mmol/LNormal3.5-5.0ProSelect Medical Cleveland Clinic Rehabilitation Hospital, AvonComment on above: Performed By: #### CBCJenni, BMP ####[facility] ([id number])[address], [place] [address]Vtfnrt [Moles/Vol]142 mmol/REndqea437-749 ProMedicMcCullough-Hyde Memorial HospitalComment on above:Performed By: #### CBCJenni, BMP ####[facility] ([id number])[address], [address], [place] [address]Jeri nitrogen [Mass/Vol]30 mg/dLHigh5-27ProSelect [facility] Hospital, AvonComment on above:Performed By: #### CBCJenni, BMP ####[facility] ([id number])[address], [address], [place] [address]EGN AND AUTO DIFFon 79-18-1686NOFJYYGJ BASOPHIL0.0 X10E9/LNormal0.0-0.2PMarietta Memorial Hospital Comment on above:Performed By: #### CBCJenni, BMP ####[facility] ([id number])[address], [address], [place] [address]FKVFFQHW NEUTROPHIL9.8 X10E9/LHigh1.5-6.6Access Hospital DaytonComment on above:Performed By: #### CBCA, BMP ####[facility] ([id number])[address], [address], [place] [address]Epqyhuzqk/100 WBC (Bld)0.2 %NormalAccess Hospital Dayton Comment on above:Performed By: #### CBCA, BMP ####[facility] ([id number])[address], [place] [address]Nghtcjbznlj (Bld) [#/Vol] 0.1 10*3/uLNormal0.0-0.4Pro[facility]ica [facility] HospitalComment on above:Performed By: #### CBCJenni, BMP ####[facility] ([id number])[address], [place] [address]Vqrmhufjcno/100 WBC (Bld)0.6 %NormalProKindred Healthcare HospitalComment on above:Performed By: #### CBCA, BMP ####[facility] ([id number])[address], [place] [address]Kziglmillzv distribution width (RBC) [Ratio]15.4 %High11.5-15.0[facility] Comment on above:Performed By: #### CBCA, BMP ####[facility] ([id number])[address], [place] [address]Nfzgwlpgqt (Bld) [Volume fraction]41.3 %Zfqrdg32-56JymLetyju [place] HospitalComment on above:Performed By: #### CBCA, BMP ####[facility] ([id number])[address], [place] [address]Yrnmixqcdq (Bld) [Mass/Vol]13.6 g/pUZuhsma42.0-17.0 [facility] HospitalComment on above:Performed By: #### CBCA, BMP ####[facility] ([id number])[address], [place] [address]Ypspwwlcphv (Bld) [#/Vol]1.5 10*3/uLNormal1.0-3.5[facility] Comment on above:Performed By: #### CBCA, BMP ####[facility] ([id number])[address] [place] [address]Mrlcclwjiuy/100 WBC (Bld) 12.1 %NormalProTrihealth Bethesda Butler Hospitalca [facility] HospitalComment on above:Performed By: #### CBCA, BMP ####[facility] ([id number])[address], [address] [place], [place] [address]TLF (RBC) [Entitic mass]30.4 axBbjhvu01-66EqkDxnain [facility] HospitalComment on above:Performed By: #### CBCA, BMP ####[facility] ([id number])[address], [address], [place] [address]VKBH (RBC) [Mass/Vol]33.0 g/cXPkvwvj28-55QlfUmjgxd [facility] HospitalComment on above: Performed By: #### CBCA, BMP ####[facility] ([id number])[address], [address] [place] [address] 597[address]SXK (RBC) [Entitic vol]92 sVJouopa61-084 [facility] HospitalComment on above:Performed By: #### CBCA, BMP ####[facility] ([id number])[address], [address] [place] [address] 28036Vmyaylfsx (Bld) [#/Vol]0.7 10*3/uLNormal0-0.9ProTrihealth [facility] Hospitalca [facility] Comment on above:Performed By: #### CBCA, BMP ####[facility] ([id number])[address], [address] [place] [address] 82091Ixsawqjek/100 WBC (Bld)6.1 %NormalProMedica Rockwell HospitalComment on above:Performed By: #### CBCA, BMP ####[facility] ([id number])[address], [address] [place] [address] 63677Siyjaiewzis/100 WBC (Bld)81.0 %NormalProMedica Rockwell HospitalComment on above:Performed By: #### CBCA, BMP ####[facility] ([id number])[address], [address] [place] [address] 68296Hikotwcu mean volume (Bld) [Entitic vol]8.7 fLNormal7-12[facility] HospitalComment on above:Performed By: #### TI, BMP ####[facility] ([id number])[address], [address] [place] [address] 658[address]Wmkbzdnlv (Bld) [#/Vol]212 10*3/kUTsqsds538-382 [facility] HospitalComment on above:Performed By: #### TI, BMP ####[facility] ([id number])[address], [address] [place] [address] 10984FDL COUNT4.47 X10E12/LNormal4.10-5.70[facility] HospitalComment on above:Performed By: #### TI, BMP ####[facility] ([id number])[address], [address] [place] [address] 93728SSB (Bld) [#/Vol]12.1 10*3/uLHigh4.0-11.0[facility] HospitalComment on above:Performed By: #### TI, BMP ####[facility] ([id number])[address], [address] [place] [address] 79422HK BRAIN WO CONTon 71-70-2750KU BRAIN WO CONTNormalProMedica Rockwell HospitalCT BRAIN WO CONTNormalProMedica [facility]well HospitalGlucose Glucometer (BldC) [Mass/Vol]on 48-42-7727Qxmqvwr [Mass/Vol]229 mg/hKLigl67-73ZjcMfvibv [facility] HospitalGlucose [Mass/Vol]195 mg/gORgzw67-99OqcGuzfdv [facility] Glucose [Mass/Vol]206 mg/mJUzur87-34SqpHpbvna [facility] HospitalGlucose [Mass/Vol] 222 mg/iYWzrb52-32XtoMvvnkb [facility] HospitalGlucose [Mass/Vol]112 mg/tQBevf74-99 [facility] HospitalGlucose [Mass/Vol]194 mg/xJYxki52-43MxkBsyzum [facility] HospitalGlucose [Mass/Vol]226 mg/hFRpdj81-28TrdXlzyml [facility] HospitalMagnesium Ionized ISE (Bld) [Moles/Vol]on 92-25-0823Chzytxqxh [Moles/Vol]0.59 mmol/LNormal 0.45-0.74ProTrihealth [facility] Hospitalca [facility] HospitalComment on above:Result Comment: NEW REFERENCE RANGEPerformed By: #### 36068-6 ####[facility] ([id number])[address], [address], [place] [address]THSKCZHHXHsn 06-23-2024 Phosphate [Mass/Vol]3.4 mg/dLNormal2.4-4.9ProTrihealth [facility] Hospitalca [facility] HospitalComment on above:Performed By: #### 2777-1 ####[facility] ([id number])[address], [address], [place] [address]EWESS METABOLIC PANLon 40-13-8602Eriin gap [Moles/Vol]8 mmol/LNormal5-15[facility] Comment on above:Performed By: #### 3274-8, CBCA, BMP ####[facility] ([id number])[address], [address], [place] [address]Rcjgmjz [Mass/Vol]9.0 mg/dLNormal8.5-10.5PSalem City Hospital HospitalComment on above: Performed By: #### 3274-8, CBCA, BMP ####[facility] ([id number])[address], [address], [place] [address]Xnqbhewm [Moles/Vol]106 mmol/AAylgve13-635DgbHnpfes [facility] HospitalComment on above:Performed By: #### 3274-8, CBCA, BMP ####[facility] ([id number])[address], [address], [place] [address]XN6 [Moles/Vol]27 mmol/WDucqtw88-88DbcQmbcep [place] HospitalComment on above:Performed By: #### 3274-8TI, BMP ####[facility] ([id number])[address] [address] Creatinine [Mass/Vol]0.73 mg/dLNormal0.60-1.30ProKindred Healthcare HospitalComment on above:Result Comment: METHOD TRACEABLE TO IDMS STANDARDPerformed By: #### 3274-8TI, BMP ####[facility] ([id number])[address] [address]yLMT (CKD-EPI) NON-RACE DEPENDENT>90Normal>59ProKindred Healthcare HospitalComment on above:Result Comment: Reported eGFR is based on theCKD-EPI 2020 equation that doesnot use a race coefficient.Performed By: #### 3274-8TI, BMP ####[facility] ([id number])[address] [address]Ypkspki [Mass/Vol]185 mg/eKZdcp19-78YjuLsrsts [place] HospitalComment on above:Performed By: #### 3274-8TI, BMP ####[facility] ([id number])[address] [address] Potassium [Moles/Vol]4.0 mmol/LNormal3.5-5.0Pro[facility] Healthcare HospitalComment on above:Performed By: #### 3274-8TI, BMP ####[facility] ([id number])[address] [address]Wmkhjf [Moles/Vol]141 mmol/OGqjesi681-702YcgKioyzk [place] HospitalComment on above:Performed By: #### 3274-8TI, BMP ####[facility] ([id number])[address] [address]Bwjs nitrogen [Mass/Vol]28 mg/dLHigh5-27Pro[facility] HospitalComment on above:Performed By: #### 3274-8, CBCA, BMP ####[facility] ([id number])[address], [address] [place] [address]VDB AND AUTO DIFFon 41-06-8146NJTROUOZ BASOPHIL0.0 X10E9/LNormal0.0-0.2[facility] HospitalComment on above:Performed By: #### 3274-8, CBCA, BMP ####[facility] ([id number])[address], [address] [place] [address] ABSOLUTE NEUTROPHIL8.1 X10E9/LHigh1.5-6.6ProTrihealth [facility] Hospitalca [facility] HospitalComment on above:Performed By: #### 3274-8, CBCA, BMP ####[facility] ([id number])[address], [address] [place] [address]Ciicqhcfd/100 WBC (Bld)0.3 %NormalProKindred Healthcare HospitalComment on above:Performed By: #### 3274-8, CBCA, BMP ####[facility] ([id number])[address], [address] [place] [address]Adcmkayovup (Bld) [#/Vol]0.2 10*3/uLNormal0.0-0.4Pro[facility]red Healthcare HospitalComment on above:Performed By: #### 3274-8, CBCA, BMP ####[facility] ([id number])[address], [address] [place] [address] Eosinophils/100 WBC (Bld)1.5 %NormalProKindred Healthcare HospitalComment on above: Performed By: #### 3274-8, CBCA, BMP ####[facility] ([id number])[address], [address] [place] [address]Zdjudeestbz distribution width (RBC) [Ratio]15.3 %High11.5-15.0ProTrihealth [facility] Hospitalca [facility] HospitalComment on above: Performed By: #### 3274-8, CBCA, BMP ####[facility] ([id number])[address], [address] [place] [address]Guhdmvbmup (Bld) [Volume fraction]39.2 %Nzkhsi90-28FxtNvyyqn [place] HospitalComment on above:Performed By: #### 3274-8, CBCA, BMP ####[facility] ([id number])[address], [address] [place] [address]Cnqgcfotcn (Bld) [Mass/Vol]13.4 g/dLNormal 13.0-17.0ProKindred Healthcare HospitalComment on above:Performed By: #### 3274-8, CBCA, BMP ####[facility] ([id number])[address], [address] [place] [address]Eljpccbzjjo (Bld) [#/Vol]1.3 10*3/uLNormal1.0-3.5Pro[facility] HospitalComment on above:Performed By: #### 3274-8, CBCA, BMP ####[facility] ([id number])[address], [address] [place] [address] 27766 Lymphocytes/100 WBC (Bld)13.1 %NormalProKindred Healthcare HospitalComment on above: Performed By: #### 3274-8, CBCA, BMP ####[facility] ([id number])[address], [address] [place] [address] 66292VFV (RBC) [Entitic mass] 31.4 irJgprrf94-09NsmEijftj [place] HospitalComment on above:Performed By: #### 3274-8, CBCA, BMP ####[facility] ([id number])[address], [address] [place] [address] 92332LNKU (RBC) [Mass/Vol]34.1 g/zGPlplri98-82MawVrsdoq [facility] HospitalComment on above:Performed By: #### 3274-8, CBCA, BMP ####[facility] ([id number])[address], [address] [place] [address] 72353PIU (RBC) [Entitic vol]92 mAJcounl79-205IjdJyknqr [facility] HospitalComment on above: Performed By: #### 3274-8, CBCA, BMP ####[facility] ([id number])[address], [address] [place] [address] 34734Gyqnwlbek (Bld) [#/Vol]0.6 10*3/uLNormal0-0.9Pro[facility] HospitalComment on above:Performed By: #### 3274-8, CBCA, BMP ####[facility] ([id number])[address], [address] [place] [address] 89651Jpdkikeyf/100 WBC (Bld)5.6 %NormalProMedica Rockwell HospitalComment on above:Performed By: #### 3274-8, CBCA, BMP ####[facility] ([id number])[address], [address] [place] [address] 47369 Neutrophils/100 WBC (Bld)79.5 %NormalProMedica Rockwell HospitalComment on above: Performed By: #### 3274-8, CBCA, BMP ####[facility] ([id number])[address], [address] [place] [address] 20693Karosvoj mean volume (Bld) [Entitic vol]8.8 fLNormal7-12Pro[facility] HospitalComment on above:Performed By: #### 3274-8, CBCA, BMP ####[facility] ([id number])[address], [address] [place] [address] 69510Dczhoivpz (Bld) [#/Vol]193 10*3/uLNormal 150-450Pro[facility]ica [facility] HospitalComment on above:Performed By: #### 3274-8, CBCJenni, BMP ####[facility] ([id number])[address], [address] [place] [address] 92798LSV COUNT4.26 X10E12/LNormal4.10-5.70Pro[facility] HospitalComment on above:Performed By: #### 3274-8, CBCJenni, BMP ####[facility] ([id number])[address] [facility], [address] [place] [address] 03632QOC (Bld) [#/Vol]10.2 10*3/uLNormal4.0-11.0Pro[facility]ica [facility] HospitalComment on above:Performed By: #### 3274-8, CBCA, BMP ####[facility] ([id number])[address], [address] [place] [address] 92758Ypcdpri Glucometer (BldC) [Mass/Vol]on 41-00-5554Lliwesp [Mass/Vol]211 mg/eWUwat18-20CgeKxbksi [facility] HospitalGlucose [Mass/Vol]238 mg/oWTytf05-95QelEfpdal [facility] HospitalGlucose [Mass/Vol]176 mg/cLYzsj85-80EoiJmvoxe [facility] HospitalGlucose [Mass/Vol]208 mg/dL Ddej07-88UgbAhtgph [facility] HospitalGlucose [Mass/Vol]186 mg/jZFqll94-49VhkLpxzip [facility] HospitalGlucose [Mass/Vol]166 mg/sOBpdf07-49HuvAimtzs [facility] Glucose [Mass/Vol]164 mg/hYDhwv61-29TezIjsjxc [facility] HospitalGlucose [Mass/Vol] 226 mg/vQJvdp41-42ZpiSefehh [facility] HospitalGlucose [Mass/Vol]241 mg/lKMorj89-04 [facility] HospitalHeparin unfractionated Chromogenic method Qn (PPP)on [id number] XA UFH0.39 IU/mLNormal0.30-0.70ProMedica [facility]well HospitalComment on above:Result Comment: Optimal time for testing is 6 hrs post dosageThis test is specific for monitoring patientson UFH, and is not recommended for use withother Anti-Xa medications.Performed By: #### 3274-8 ####[facility] [facility] ([id number])[address], [address] [place] [address] 75350TKEE XA UFH0.28 IU/mLLow0.30-0.70Pro[facility]red Healthcare HospitalComment on above:Result Comment: Optimal time for testing is 6 hrs post dosageThis test is specific for monitoring patientson UFH, and is not recommended for use withother Anti-Xa medications.Performed By: #### 3274-8, TI, BMP ####[facility] ([id number])[address], [address] [place] [address] 88146Xobmrtc (P chauncey) [Moles/Vol]on 96-84-6993DRYQTNY W/REFLEX1.1 mmol/LNormal0.4-2.0ProKindred Healthcare HospitalComment on above:Result Comment: Result did not trigger repeat Lactate,re-order if needed.Performed By: #### 76441-4 ####[facility] ([id number])[address], [address] [place] [address] 61353DZXNE METABOLIC PANLon 43-47-1303Brdiq gap [Moles/Vol]8 mmol/LNormal5-15ProKindred Healthcare HospitalComment on above:Performed By: #### CBCA, BMP ####[facility] ([id number])[address], [address] [place] [address] 47223Vlkmjdz [Mass/Vol]9.0 mg/dLNormal8.5-10.5PMarietta Memorial HospitalComment on above: Performed By: #### CBCA, BMP ####[facility] ([id number])[address], [address] [place] [address] 04006Ppvajojq [Moles/Vol]109 mmol/YKmjadl44-010 [facility] HospitalComment on above:Performed By: #### TI, BMP ####[facility] ([id number])[address], [address], [place] [address]UR2 [Moles/Vol]28 mmol/SYloxtf83-40PsqMlyuol [facility] HospitalComment on above:Performed By: #### TI, BMP ####[facility] ([id number])[address], [address], [place] [address]Yawgitzlgk [Mass/Vol]0.83 mg/dLNormal0.60-1.30[facility] HospitalComment on above:Result Comment: METHOD TRACEABLE TO IDMS STANDARDPerformed By: #### TI BMP ####[facility] ([id number])[address] [address], [place] [address]pXAE (CKD-EPI) NON-RACE DEPENDENT>90Normal>59Pro[facility]ica Rock[facility] HospitalComment on above:Result Comment: Reported eGFR is based on theCKD-EPI 2020 equation that doesnot use a race coefficient.Performed By: #### TI, BMP ####[facility] ([id number])[address] [address], [place] [address]Idmcsnl [Mass/Vol]124 mg/lYSfqp22-58SmtLnceab [facility] HospitalComment on above:Performed By: #### TI, BMP ####[facility] ([id number])[address] [address] [address], [place] [address]Eoctpsrcx [Moles/Vol]4.2 mmol/LNormal3.5-5.0Pro[facility] HospitalComment on above:Performed By: #### TI, BMP ####[facility] ([id number])[address], [address], [place] [address]Krwllg [Moles/Vol]145 mmol/GUmvgyo446-617PjmXazxjh [facility] HospitalComment on above: Performed By: #### CBCA, BMP ####[facility] ([id number])[address], [address] [place] [address] 74224Rtwy nitrogen [Mass/Vol]29 mg/dLHigh5-27 [facility] HospitalComment on above:Performed By: #### CBCA, BMP ####[facility] ([id number])[address], [address] [place] [address] 50447CFD AND AUTO DIFFon 08-52-1968PNAXSCCY BASOPHIL0.1 X10E9/LNormal0.0-0.2 ProMNation[facility] Hospital HospitalComment on above:Performed By: #### CBCA, BMP ####[facility] ([id number])[address], [address] [place] [address] 04302HKHHMRNC NEUTROPHIL8.9 X10E9/LHigh1.5-6.6ProKindred Healthcare HospitalComment on above:Performed By: #### CBCA, BMP ####[facility] ([id number])[address], [address] [place] [address] 56820Huvnloxlp/100 WBC (Bld)0.7 %NormalProKindred Healthcare HospitalComment on above:Performed By: #### CBCA, BMP ####[facility] ([id number])[address], [address] [place] [address] 96741Xpbppppfeel (Bld) [#/Vol]0.2 10*3/uLNormal0.0-0.4Pro[facility]ca [facility] Comment on above:Performed By: #### CBCA, BMP ####[facility] ([id number])[address], [address] [place] [address] 76048Bxvrbkwiqhq/100 WBC (Bld) 1.4 %NormalProTrihealth Bethesda Butler Hospitalca [facility]den HospitalComment on above:Performed By: #### CBCA, BMP ####[facility] ([id number])[address], [address], [place] [address]Waktaaqwwkb distribution width (RBC) [Ratio]15.5 %High11.5-15.0 [facility]MNation[facility] Hospital HospitalComment on above:Performed By: #### CBCA, BMP ####[facility] ([id number])[address], [address], [place] [address]Mtnehdcmdp (Bld) [Volume fraction]41.1 %Rnymtf25-14HrzWjraxy [place] HospitalComment on above:Performed By: #### CBCA, BMP ####[facility] ([id number])[address], [address], [place] [address]Zbiuvvhdjb (Bld) [Mass/Vol]13.4 g/sJUsqlyx50.0-17.0ProKind[facility] Healthcare HospitalComment on above: Performed By: #### CBCA, BMP ####[facility] ([id number])[address], [place] [address]Qzxdctfsswv (Bld) [#/Vol]1.7 10*3/uLNormal 1.0-3.5[facility] HospitalComment on above:Performed By: #### CBCA, BMP ####[facility] ([id number])[address], [place] [address]Ylvjspfawkg/100 WBC (Bld)14.6 %NormalProKindred Healthcare HospitalComment on above:Performed By: #### CBCA, BMP ####[facility] ([id number])[address], [address], [place] [address]KTA (RBC) [Entitic mass] 30.2 coBanfij34-44SygHyrxfc [place] HospitalComment on above:Performed By: #### CBCA, BMP ####[facility] ([id number])[address], [address], [place] [address]NRHR (RBC) [Mass/Vol]32.6 g/pJEaxntf63-45ZinWnptyz [facility] HospitalComment on above:Performed By: #### CBCA, BMP ####[facility] ([id number])[address], [address] [place] [address] 97188QCN (RBC) [Entitic vol]93 lZNaybff71-384GvuBjohvv [facility] HospitalComment on above: Performed By: #### CBCA, BMP ####[facility] ([id number])[address], [address] [place] [address] 068[address]Pwsikkyoq (Bld) [#/Vol]0.7 10*3/uLNormal 0-0.9[facility] HospitalComment on above:Performed By: #### CBCA, BMP ####[facility] ([id number])[address], [address] [place] [address] 22539Avrhkqwqs/100 WBC (Bld)6.0 %NormalProMedica Rockwell HospitalComment on above:Performed By: #### CBCA, BMP ####[facility] ([id number])[address] [place] [address] 95386Grpjsmqtrzt/100 WBC (Bld) 77.3 %NormalProMedica Rockwell HospitalComment on above:Performed By: #### CBCA, BMP ####[facility] ([id number])[address], [address] [place] [address]Sykdbocc mean volume (Bld) [Entitic vol]9.5 fLNormal7-12[facility] HospitalComment on above:Performed By: #### CBCA, BMP ####[facility] ([id number])[address] [place] [address] 47617Qxcsezfat (Bld) [#/Vol]195 10*3/sWSgyiec734-754ZqsPgoeit [facility] HospitalComment on above: Performed By: #### CBCA, BMP ####[facility] ([id number])[address], [address] [place] [address] 78895POL COUNT4.44 X10E12/LNormal4.10-5.70 ProMTrinity Health System East CampusComment on above:Performed By: #### CBCA, BMP ####[facility] ([id number])[address], [address] [place] [address] 41773DDO (Bld) [#/Vol]11.5 10*3/uLHigh4.0-11.0Access Hospital DaytonComment on above:Performed By: #### CBCA, BMP ####[facility] ([id number])[address], [address] [place] [address] 09865IJ CTV ABD AND PELVISon 85-47-6229MF CTV ABD AND PELVISNormalProSelect Medical Cleveland Clinic Rehabilitation Hospital, AvonFibrin D-dimer DDU (PPP) [Mass/Vol]on 06-21-2024 YMWAK3466 ng/mL DDUHigh<255Access Hospital DaytonComment on above:Result Comment: Results >=255ng/mL DDU: Results may beindicative of the presence of VTE. The useof the Wells score and further diagnostictests should be considered. Elevated D-Dimerlevels can alsobe associated with DIC,neoplasm, , trauma and liver disease.Elevated levels of rheumatoid factor may leadto an overestimation of the D-Dimer level. Performed By: #### 54913-6, 3274-8 ####[facility] ([id number])[address], [address] [place] [address] 11856Iwlygdu Glucometer (BldC) [Mass/Vol]on 67-16-7855Ohnuuwq [Mass/Vol]176 mg/kAJwsl44-08TlaPsxsjoSelect Medical Cleveland Clinic Rehabilitation Hospital, AvonGlucose [Mass/Vol]144 mg/oNIqwq37-80CtmRdhmff [facility] HospitalGlucose [Mass/Vol]150 mg/gQHgmf30-59AzbRqqwdc [facility] HospitalGlucose [Mass/Vol]205 mg/dL Yzdr24-34JzrCaonpmSelect Medical Cleveland Clinic Rehabilitation Hospital, AvonGlucose [Mass/Vol]186 mg/bHZzfw42-60PwnQkcyrjSelect Medical Cleveland Clinic Rehabilitation Hospital, AvonGlucose [Mass/Vol]160 mg/oKZqic18-09IutImgthzAccess Hospital [facility] Heparin unfractionated Chromogenic method Qn (PPP)on 60-58-9675ZOWE XA UFH0.34 IU/mLNormal0.30-0.70Access Hospital DaytonComment on above:Result Comment: Optimal time for testing is 6 hrs post dosageThis test is specific for monitoring patientson UFH, and is not recommended for use withother Anti-Xa medications.Performed By: #### 90327-8, 3274-8 ####[facility] ([id number])[address] [place] [address], [address] [place] [address] 68684NTAA XA UFH0.34 IU/mLNormal 0.30-0.70Access Hospital DaytonComment on above:Result Comment: Optimal time for testing is 6 hrs post dosageThis test is specific for monitoring patientson UFH, and is not recommended for use withother Anti-Xa medications.Performed By: #### 3274-8 ####[facility] ([id number])[address] [place] [address], [address] [place] [address] 99716MF ABDOMEN AP 1 VWon 49-26-7082WK ABDOMEN AP 1 VWNormal [facility] AdministrationXR CHEST 1 VWon 83-98-4435OS CHEST 1 VWNormalProSelect Medical Cleveland Clinic Rehabilitation Hospital, AvonBASIC METABOLIC PANLon 91-98-5291Mimcu gap [Moles/Vol]8 mmol/L Normal5-15Access Hospital DaytonComment on above:Performed By: #### CBCA, BMP ####[facility] ([id number])[address] [place] [address], [address] [place] [address] 79303Zbekhna [Mass/Vol]9.1 mg/dLNormal8.5-10.5[facility] Comment on above:Performed By: #### CBCA, BMP ####[facility] ([id number])[address], [place] [address]Yejghdzc [Moles/Vol]110 mmol/TBvyd47-835WoyBdjdmi [place] HospitalComment on above:Performed By: #### TI, BMP ####[facility] ([id number])[address], [place] [address]PW7 [Moles/Vol]27 mmol/HMkkvbm42-44IvuRegtgc [facility] Comment on above:Performed By: #### TI, BMP ####[facility] ([id number])[address] [address]Uxfrfzgmod [Mass/Vol]0.79 mg/dLNormal0.60-1.30ProSelect Medical Cleveland Clinic Rehabilitation Hospital, AvonComment on above:Result Comment: METHOD TRACEABLE TO IDMS STANDARDPerformed By: #### TI, BMP ####[facility] ([id number])[address] [address], [place] [address]jJKZ (CKD-EPI) NON-RACE DEPENDENT>90Normal>59ProKindred Healthcare HospitalComment on above:Result Comment: Reported eGFR is based on theCKD-EPI 2020 equation that doesnot use a race coefficient.Performed By: #### TI, BMP ####[facility] ([id number])[address] [place] [address] 50471Vderufg [Mass/Vol]172 mg/iAPhko59-91LryYouzno [place] HospitalComment on above:Performed By: #### TI, BMP ####[facility] ([id number])[address] [address]Llznkdbyu [Moles/Vol]3.8 mmol/LNormal3.5-5.0Pro[facility]red Healthcare HospitalComment on above:Performed By: #### TI, BMP ####[facility] ([id number])[address], [place] [address]Efzmra [Moles/Vol]145 mmol/JFyuvuk192-887NmfNrtifd [facility] HospitalComment on above: Performed By: #### TI, BMP ####[facility] ([id number])[address], [address], [place] [address]Enjr nitrogen [Mass/Vol]29 mg/dLHigh5-27 [facility]MNation[facility] HospitalComment on above:Performed By: #### CBCJenni, BMP ####[facility] ([id number])[address], [address] [place] [address] 889[address]CDA AND AUTO DIFFon 74-86-8951HGYARNGH BASOPHIL0.1 X10E9/LNormal0.0-0.2 [facility] HospitalComment on above:Performed By: #### CBCJenni, BMP ####[facility] ([id number])[address], [address] [place] [address] 23120YZRGFAMM NEUTROPHIL8.5 X10E9/LHigh1.5-6.6Pro[facility] Hospitalca [facility] HospitalComment on above:Performed By: #### CBCJenni, BMP ####[facility] ([id number])[address], [address] [place] [address] 58005Skhhvninc/100 WBC (Bld)0.7 %NormalProTrihealth Bethesda Butler Hospitalca [facility]den HospitalComment on above:Performed By: #### CBCJenni, BMP ####[facility] ([id number])[address], [address] [place] [address] 93143Rqgakgqujam (Bld) [#/Vol]0.2 10*3/uLNormal0.0-0.4Pro[facility]ca [facility] Comment on above:Performed By: #### CBCA, BMP ####[facility] ([id number])[address], [address], [place] [address]Wnlrcbexrca/100 WBC (Bld) 1.4 %NormalProMedica Rockwell HospitalComment on above:Performed By: #### CBCA, BMP ####[facility] ([id number])[address] [facility], [place] [address]Ftedjxjfeqo distribution width (RBC) [Ratio]15.3 %High11.5-15.0 [facility] HospitalComment on above:Performed By: #### CBCJenni, BMP ####[facility] ([id number])[address], [address], [place] [address]Gsmwlgnpob (Bld) [Volume fraction]39.9 %Vydvxt11-73BzwFmivnb [facility] HospitalComment on above:Performed By: #### CBCJenni, BMP ####[facility] ([id number])[address] [place] [address] 23386Mkwompkwao (Bld) [Mass/Vol]13.4 g/tBOmkxsr46.0-17.0[facility] HospitalComment on above: Performed By: #### CBCA, BMP ####[facility] ([id number])[address] [place] [address] 231[address]Bqmzumstssl (Bld) [#/Vol]1.4 10*3/uLNormal 1.0-3.5[facility] HospitalComment on above:Performed By: #### CBCJenni, BMP ####[facility] ([id number])[address] [address] [place] [address] 66036Fiukwlekgao/100 WBC (Bld)13.1 %NormalProMedica Rockwell HospitalComment on above:Performed By: #### CBCA, BMP ####[facility] ([id number])[address] [address] [place] [address] 38906IFR (RBC) [Entitic mass] 31.1 vhArvuoi17-74WlgHyipqr [facility] HospitalComment on above:Performed By: #### CBCA, BMP ####[facility] ([id number])[address], [address], [place] [address]WYQF (RBC) [Mass/Vol]33.6 g/nMTtxlnm35-16ZnrSqbxdf [facility] HospitalComment on above:Performed By: #### CBCA, BMP ####[facility] ([id number])[address], [address], [place] [address]KMP (RBC) [Entitic vol]93 pZMownxi12-736ZorMfhkxe [facility] HospitalComment on above: Performed By: #### CBCA, BMP ####[facility] ([id number])[address], [address], [place] [address]Yyruypsxg (Bld) [#/Vol]0.6 10*3/uLNormal 0-0.9[facility] HospitalComment on above:Performed By: #### CBCA, BMP ####[facility] ([id number])[address], [address], [place] [address]Obvthsigd/100 WBC (Bld)5.6 %NormalProMedica Rockwell HospitalComment on above:Performed By: #### CBCA, BMP ####[facility] ([id number])[address], [address], [place] [address]Ukrsrhtuejf/100 WBC (Bld) 79.2 %NormalProMedica Rockwell HospitalComment on above:Performed By: #### CBCA, BMP ####[facility] ([id number])[address], [address], [place] [address]Pidcrzkf mean volume (Bld) [Entitic vol]9.5 fLNormal7-12[facility] HospitalComment on above:Performed By: #### CBCA, BMP ####[facility] ([id number])[address], [address], [place] [address]Qzrgjncxa (Bld) [#/Vol]172 10*3/pTCughmu613-932DfjStlzff [place] HospitalComment on above: Performed By: #### TI, TK ####[facility] ([id number])[address], [address] [place] [address] 94405JXC COUNT4.31 X10E12/LNormal4.10-5.70 ProMedicMcCullough-Hyde Memorial HospitalComment on above:Performed By: #### TI, BMP ####[facility] ([id number])[address], [address] [place] [address] 91116OMO (Bld) [#/Vol]10.7 10*3/uLNormal4.0-11.0[facility] Comment on above:Performed By: #### TI, BMP ####[facility] ([id number])[address], [address] [place] [address] 927[address]Mgdnlef Glucometer (BldC) [Mass/Vol]on 03-45-8435Rxvdclm [Mass/Vol]151 mg/fCPbrp49-98AjfAxcrvw [facility] HospitalGlucose [Mass/Vol]230 mg/kKSmzx07-98BbrFxqjjc [facility] HospitalGlucose [Mass/Vol]235 mg/wELgfg90-18WvdCruqvm [facility] HospitalGlucose [Mass/Vol]179 mg/dL Alsw08-92VwdXsmrrn [facility] HospitalGlucose [Mass/Vol]145 mg/pTIcih49-26HgeKhihak [facility] HospitalGlucose [Mass/Vol]183 mg/fZTnha26-54UytAcfgni [facility] Glucose [Mass/Vol]166 mg/cXYhgl53-06JsyXkvuxw [facility] HospitalHeparin unfractionated Chromogenic method Qn (PPP)on 78-47-2835QVGW XA UFH0.28 IU/mLLow 0.30-0.70ProSelect Medical Cleveland Clinic Rehabilitation Hospital, AvonComment on above:Result Comment: Optimal time for testing is 6 hrs post dosageThis test is specific for monitoring patientson UFH, and is not recommended for use withother Anti-Xa medications.Performed By: #### 3274-8 ####[facility] ([id number])[address], [address] [place] [address] 88238EXSG XA UFH0.26 IU/mLLow0.30-0.70[facility] Comment on above:Result Comment: Optimal time for testing is 6 hrs post dosageThis test is specific for monitoring patientson UFH, and is not recommended for use withother Anti-Xa medications.Performed By: #### 3274-8 ####[facility] ([id number]) [address], [address] [place] [address] 39373GWYXKBXRXJyr 62-56-2564Nnwfoothi Ql (U)NegativeNormalNEGProSelect Medical [facility] Clinic Rehabilitation Hospital, AvonComment on above:Performed By: #### UA ####[facility] ([id number])[facility] [address] [place] [address]ZVKBL/HGBTraceAbnormalNEG [facility] AdministrationComment on above:Performed By: #### UA ####[facility] ([id number])[facility] [address] [place] [address]Damyd (U)YELLOWNormalYELLOWProSelect Medical [facility] Hospital, AvonComment on above:Performed By: #### UA ####[facility] ([id number])[facility] [address] [place] [address]Corntiw Ql (U)NegativeNormalNEGAccess Hospital Dayton Comment on above:Performed By: #### UA ####[facility] ([id number])[facility] [address] [address] [place] [address] 35288Xqvwssy casts LM Ql (Urine sed)1 /lpfNormal0-2[facility] AdministrationComment on above:Performed By: #### UA ####[facility] ([id number])[facility], [address] [place] [address] 887[address]Ebphwnz Ql (U)NegativeNormalNEGProMedica Rockwell HospitalComment on above:Performed By: #### UA ####[facility] ([id number])[address], [address] [place] [address] 426[address]Qdvqqktbc esterase Test strip Ql (U)Negative NormalNEGProMedica Rockwell HospitalComment on above:Performed By: #### UA ####[facility] ([id number])[address], [address] [place] [address] 37019XAJAAWTAZBXHEYspqiipfKXPYPrdZxfthl [facility] HospitalComment on above: Performed By: #### UA ####[facility] ([id number])[address], [address] [place] [address] 34898Ahioctt Ql (U)NegativeNormalNEGProMedica Rockwell HospitalComment on above:Performed By: #### UA ####[facility] ([id number])[address], [address] [place] [address] 10776uY (U)6.5 [pH] Normal5.0-8.5Pro[facility] HospitalComment on above:Performed By: #### UA ####[facility] ([id number])[address], [address] [place] [address] 22031Ajozwxt Ql (U)TraceAbnormalNEGProMedica Rockwell HospitalComment on above: Performed By: #### UA ####[facility] ([id number])[address], [address] [place] [address]F.B.CELLS6 /hpfHigh0-5ProMedica Rockwell HospitalComment on above:Performed By: #### UA ####[facility] ([id number])[address], [address] [place] [address]265Xoepgxyw gravity (U) [Rel density]1.033Gztzxb3.003-1.035ProMedica Rockwell HospitalComment on above: Performed By: #### UA ####[facility] ([id number])[address], [address] [address]JJEMLWHD EPITHELIUM<6Eratft2-1WmlTpmcqd [place] HospitalComment on above:Performed By: #### UA ####[facility] ([id number])[address], [address] [address]OWGSXNEZUPKTPV NormalCLEARPSalem City Hospital HospitalComment on above:Performed By: #### UA ####[facility] ([id number])[address], [address], [place] [address]Qvzcgrvlwocx Qn (U)12 {Man'U}/dLHigh<1.1PMarietta Memorial Hospital Comment on above:Performed By: #### UA ####[facility] ([id number])[address], [address], [place] [address]M.B.CELLS<7Kzfwai9-5 [facility] HospitalComment on above:Performed By: #### UA ####[facility] ([id number])[address], [address] [address]UX ABDOMEN AP 1 VWon [id number] ABDOMEN AP 1 VWNormalProMedica [facility] BASIC METABOLIC PANLon 52-81-3056Dwagf gap [Moles/Vol]10 mmol/LNormal5-15 [facility] DaytonComment on above:Performed By: #### TI, 3274-8, BMP ####[facility] ([id number])[address], [address], [place] [address]Jpkkvbu [Mass/Vol]9.2 mg/dLNormal8.5-10.5PSalem City Hospital HospitalComment on above:Performed By: #### TI, 3274-8, BMP ####[facility] ([id number])[address], [address], [place] [address]Iernlino [Moles/Vol]109 mmol/MSooprj99-423WfgGkcqjw Rockwell HospitalComment on above:Performed By: #### TI 3274-8, BMP ####[facility] ([id number])[address] [address]HG[address] [Moles/Vol]26 mmol/QYggbhu09-72FytNxsbpo Rockwell HospitalComment on above:Performed By: #### TI 3274-05, BMP ####[facility] ([id number])[address], [address] [address] Creatinine [Mass/Vol]0.80 mg/dLNormal0.60-1.30ProMedica Rockwell HospitalComment on above:Result Comment: METHOD TRACEABLE TO IDMS STANDARDPerformed By: #### TI 3274-8, BMP ####[facility] ([id number])[address] [address]tISD (CKD-EPI) NON-RACE DEPENDENT>90Normal>59ProMedica Rockwell HospitalComment on above:Result Comment: Reported eGFR is based on theCKD-EPI 2020 equation that doesnot use a race coefficient.Performed By: #### TI 3274-8, BMP ####[facility] ([id number])[address] [address]Lpkapbk [Mass/Vol]203 mg/wUMcmh83-39TyhFatugt Rockwell HospitalComment on above:Performed By: #### TI 3274-8, BMP ####[facility] ([id number])[address] [address] Potassium [Moles/Vol]3.8 mmol/LNormal3.5-5.0ProMedica Rockwell HospitalComment on above:Performed By: #### TI 3274-8, BMP ####[facility] ([id number])[address], [place] [address]Jrzpjf [Moles/Vol]145 mmol/CImfnsr118-575KuiWcpjzv [facility] HospitalComment on above:Performed By: #### TI 3274-8, BMP ####[facility] ([id number])[address], [address] [place] [address] 55221Qism nitrogen [Mass/Vol]24 mg/dLNormal5-27ProMedica [facility] HospitalComment on above:Performed By: #### TI 3274-05, BMP ####[facility] ([id number])[address], [address] [place] [address] 41415JJX AND AUTO DIFFon 89-05-2401BUDOIWFX BASOPHIL0.1 X10E9/LNormal0.0-0.2ProMedica [facility] HospitalComment on above:Performed By: #### TI 3274-05, BMP ####[facility] ([id number])[address], [address] [place] [address] 17171 ABSOLUTE OVVGBVZZOH64.6 X10E9/LHigh1.5-6.6Pro[facility]ica [facility] HospitalComment on above:Performed By: #### TI 8, BMP ####[facility] ([id number])[address], [address] [place] [address] 16543Iflqhkvhg/100 WBC (Bld)1.0 %NormalProMedica Rockwell HospitalComment on above:Performed By: #### TI 327 8, BMP ####[facility] ([id number])[address], [address] [place] [address] 33406Psqffuxchca (Bld) [#/Vol]0.1 10*3/uLNormal0.0-0.4Pro[facility]ica [facility] HospitalComment on above:Performed By: #### TI 327-8, BMP ####[facility] ([id number])[address], [address] [place] [address] 16482 Eosinophils/100 WBC (Bld)0.8 %NormalProMedica Rockwell HospitalComment on above: Performed By: #### TI, 3273-, BMP ####[facility] ([id number])[address], [address] [place] [address] 93451Bweeugxfljk distribution width (RBC) [Ratio]14.9 %Obhazf63.5-15.0Pro[facility]ica [facility] HospitalComment on above:Performed By: #### TI, 3274-05, BMP ####[facility] ([id number])[address], [address] [place] [address] 35923Gvvdkpdtam (Bld) [Volume fraction]41.9 %Lknlgr91-15UkcEsbnpb [facility] HospitalComment on above:Performed By: #### TI, 3274-05, BMP ####[facility] ([id number])[address], [address] [place] [address] 54241Ymadncsnzh (Bld) [Mass/Vol]14.2 g/dLNormal 13.0-17.0Pro[facility]ica [facility] HospitalComment on above:Performed By: #### TI, 3274-05, BMP ####[facility] ([id number])[address] [address]Cmwmlmholey (Bld) [#/Vol]1.6 10*3/uLNormal1.0-3.5Pro[facility]ica [facility] HospitalComment on above:Performed By: #### TI, 3273-, BMP ####[facility] ([id number])[address] [address] [place] [address] 53517 Lymphocytes/100 WBC (Bld)11.9 %NormalProMedica Rockwell HospitalComment on above: Performed By: #### TI, 3273-8, BMP ####[facility] ([id number])[address], [address] [place] [address] 49089DGR (RBC) [Entitic mass] 30.6 npLuupbr60-00OgpKfuetm [facility] HospitalComment on above:Performed By: #### TI, 3274-05, BMP ####[facility] ([id number])[address], [address] [place] [address] 88948YFNP (RBC) [Mass/Vol]33.8 g/pNMzfelj83-76YkwWmqmka [facility] HospitalComment on above:Performed By: #### TI, 3274-05, BMP ####[facility] ([id number])[address], [address] [place] [address] 65420RPP (RBC) [Entitic vol]91 yYOupykp19-877UanMccvox [facility] HospitalComment on above: Performed By: #### TI, 3274-05, BMP ####[facility] ([id number])[address], [address] [place] [address] 30501Mncgldonn (Bld) [#/Vol]0.6 10*3/uLNormal0-0.9Pro[facility]ica [facility] HospitalComment on above:Performed By: #### TI, 3274-05, BMP ####[facility] ([id number])[address], [address] [place] [address] 47788Jkfafayyp/100 WBC (Bld)4.7 %NormalProMedica Rockwell HospitalComment on above:Performed By: #### CBCJenni, 3273-8, BMP ####[facility] ([id number])[address], [address] [place] [address] 04339 Neutrophils/100 WBC (Bld)81.6 %NormalProMedica Rockwell HospitalComment on above: Performed By: #### TI, 3273-8, BMP ####[facility] ([id number])[address], [address] [place] [address] 69344Lweclkye mean volume (Bld) [Entitic vol]9.6 fLNormal7-12Pro[facility] HospitalComment on above:Performed By: #### TI 3274-8, BMP ####[facility] ([id number])[address], [address] [place] [address] 13652Byggllflo (Bld) [#/Vol]169 10*3/uLNormal 150-450Pro[facility]ica [facility] HospitalComment on above:Performed By: #### TI 3274- 8, BMP ####[facility] ([id number])[address], [address] [place] [address] 75671TXR COUNT4.63 X10E12/LNormal4.10-5.70[facility] HospitalComment on above:Performed By: #### TI 3274-8, BMP ####[facility] ([id number])[address], [address] [place] [address] 53605XHW (Bld) [#/Vol]13.0 10*3/uLHigh4.0-11.0Pro[facility] HospitalComment on above: Performed By: #### TI 3274-8, BMP ####[facility] ([id number])[address], [address] [place] [address] 64741Sxsvwbk Glucometer (BldC) [Mass/Vol]on 45-36-1502Qtqndxk [Mass/Vol]159 mg/zSShwf20-54UlqHzqnzn [facility] HospitalGlucose [Mass/Vol]172 mg/eNYdqm99-39EpaTvzxst [facility] HospitalGlucose [Mass/Vol]142 mg/qKClus55-75FicCtqhcp [facility] HospitalGlucose [Mass/Vol]191 mg/dL Izhp22-82ReoSsecqk [facility] HospitalGlucose [Mass/Vol]163 mg/eXUcfz72-66MdhYhykim [facility] HospitalGlucose [Mass/Vol]212 mg/vNLunf00-13DjiXowfmj [facility] Glucose [Mass/Vol]182 mg/pBKjaq18-22WwwZqydtf [facility] HospitalGlucose [Mass/Vol] 189 mg/yXLakb57-56XxiOagrnj [facility] HospitalGlucose [Mass/Vol]177 mg/bBRkns78-55 [facility] HospitalHeparin unfractionated Chromogenic method Qn (PPP)on 89-63-0486KZZV XA UFH0.37 IU/mLNormal0.30-0.70ProKindred Healthcare HospitalComment on above:Result Comment: Optimal time for testing is 6 hrs post dosageThis test is specific for monitoring patientson UFH, and is not recommended for use withother Anti-Xa medications.Performed By: #### CBCA, 3274-8, BMP ####[facility] ([id number])[address], [address], [place] [address]YYACE METABOLIC PANLon 75-02-7889Mdcfw gap [Moles/Vol]7 mmol/LNormal5-15[facility] HospitalComment on above:Performed By: #### BMP ####[facility] ([id number])[address], [address], [place] [address]Uxvjfyw [Mass/Vol]8.9 mg/dLNormal8.5-10.5PSalem City Hospital HospitalComment on above: Performed By: #### BMP ####[facility] ([id number])[address], [address], [place] [address]Jhzvqebl [Moles/Vol]111 mmol/IJwtu51-877 [facility] HospitalComment on above:Performed By: #### BMP ####[facility] ([id number])[address], [address], [place] [address]NY5 [Moles/Vol]26 mmol/PYnzgep04-49AqcYsqwta [facility] HospitalComment on above: Performed By: #### BMP ####[facility] ([id number])[address], [address], [place] [address]Wsfxkkoqnf [Mass/Vol]0.88 mg/dLNormal 0.60-1.30[facility] HospitalComment on above:Result Comment: METHOD TRACEABLE TO IDMS STANDARDPerformed By: #### BMP ####[facility] ([id number])[address], [address], [place] [address]vTYJ (CKD-EPI) NON-RACE DEPENDENT>90Normal>59Pro[facility] Healthcare HospitalComment on above:Result Comment: Reported eGFR is based on theCKD-EPI 2020 equation that doesnot use a race coefficient.Performed By: #### BMP ####[facility] ([id number])[address] [address], [place] [address]Zdvijvm [Mass/Vol]218 mg/dL Sopg84-84WfmOsolrz [facility] HospitalComment on above:Performed By: #### BMP ####[facility] ([id number])[address] [address] [place] [address] 45678Qtuzrevni [Moles/Vol]4.9 mmol/LNormal3.5-5.0[facility] Hospital Comment on above:Result Comment: SPECIMEN HEMOLYZED, RESULTS INCREASEDMODERATELY HEMOLYZEDPerformed By: #### BMP ####[facility] ([id number])[address], [place] [address]Ykaktk [Moles/Vol]144 mmol/QNfnslx053-197WsmFvgiir [facility] HospitalComment on above:Performed By: #### BMP ####[facility] ([id number])[address], [place] [address]Cvnt nitrogen [Mass/Vol]26 mg/dLNormal5-27Pro[facility] HospitalComment on above:Performed By: #### BMP ####[facility] ([id number])[address], [address], [place] [address]CQA AND AUTO DIFFon 60-52-5458XCTYHLIJ BASOPHIL0.0 X10E9/LNormal0.0-0.2PMari[facility] Comment on above:Performed By: #### CBCA ####[facility] ([id number])[address], [address], [place] [address]ALWBMYWY AEMDJLAPJP45.3 X10E9/LHigh1.5-6.6Pro[facility] HospitalComment on above:Performed By: #### CBCA ####[facility] ([id number])[address], [place] [address]Vwanwwcaj/100 WBC (Bld)0.4 %NormalAccess Hospital [facility] Comment on above:Performed By: #### CBCA ####[facility] ([id number])[address], [place] [address]Ksgmvvxejvu (Bld) [#/Vol] 0.1 10*3/uLNormal0.0-0.4ProSelect Medical [facility] Clinic Rehabilitation Hospital, AvonComment on above:Performed By: #### CBCA ####[facility] ([id number])[address], [address], [place] [address]Uyulxxcdhwr/100 WBC (Bld)0.4 %NormalAccess Hospital Dayton Comment on above:Performed By: #### CBCA ####[facility] ([id number])[address] [address], [place] [address]Iegtcyxbyjm distribution width (RBC) [Ratio]15.4 %High11.5-15.0Pro[facility] Healthcare HospitalComment on above: Performed By: #### CBCA ####[facility] ([id number])[address], [place] [address]Cnmvhysxse (Bld) [Volume fraction]41.5 % Excxux46-30ExiIyalsi [facility] HospitalComment on above:Performed By: #### CBCA ####[facility] ([id number])[address], [address], [place] [address]Okekgkprmf (Bld) [Mass/Vol]13.7 g/wXXraphf87.0-17.0[facility] HospitalComment on above:Performed By: #### CBCA ####[facility] ([id number])[address], [address], [place] [address]Yerpepekvhz (Bld) [#/Vol]1.8 10*3/uLNormal1.0-3.5[facility] HospitalComment on above: Performed By: #### CBCA ####[facility] ([id number])[address], [place] [address]Rxrbgamwerr/100 WBC (Bld)12.6 %Normal [facility] HospitalComment on above:Performed By: #### CBCA ####[facility] ([id number])[address], [address], [place] [address]RHF (RBC) [Entitic mass]30.1 hvQoaeae86-90KsxFomiux [facility] HospitalComment on above: Performed By: #### CBCA ####[facility] ([id number])[address], [address], [place] [address]SNHW (RBC) [Mass/Vol]32.9 g/qDBhmamt51-53 [facility] HospitalComment on above:Performed By: #### CBCA ####[facility] ([id number])[address], [address], [place] [address]BAX (RBC) [Entitic vol]92 sKSjfpoh08-519QafNmldub [facility] HospitalComment on above: Performed By: #### CBCA ####[facility] ([id number])[address], [address], [place] [address]Oshbggfkg (Bld) [#/Vol]0.9 10*3/uLNormal 0-0.9[facility] HospitalComment on above:Performed By: #### CBCA ####[facility] ([id number])[address], [address], [place] [address]Plvsaphcy/100 WBC (Bld)6.2 %NormalProMedica Rockwell HospitalComment on above:Performed By: #### CBCA ####[facility] ([id number])[address], [address], [place] [address]Olaiqjbisvo/100 WBC (Bld)80.4 %Normal [facility] HospitalComment on above:Performed By: #### CBCA ####[facility] ([id number])[address], [address] [place] [address] Platelet mean volume (Bld) [Entitic vol]9.5 fLNormal7-12[facility] HospitalComment on above:Performed By: #### CBCA ####[facility] ([id number])[address] [address] [place] [address]Tdkzgrwdj (Bld) [#/Vol] 158 10*3/bXFxzhhb543-723ZzvZrsadb [facility] HospitalComment on above:Performed By: #### CBCA ####[facility] ([id number])[address], [address] [place] [address] 276[address]DCX COUNT4.53 X10E12/LNormal4.10-5.70[facility] HospitalComment on above:Performed By: #### CBCA ####[facility] ([id number])[address] [address] [place] [address] 50691JKO (Bld) [#/Vol]14.0 10*3/uLHigh4.0-11.0[facility] HospitalComment on above:Performed By: #### CBCA ####[facility] ([id number])[address], [place] [address]Ukjyvxq Glucometer (BldC) [Mass/Vol]on 04-91-1601Elclrcb [Mass/Vol]114 mg/uRGeuu35-57RdkIpyjgnAccess Hospital DaytonGlucose [Mass/Vol]192 mg/dL Ycow17-32MunKlxfuhSelect Medical Cleveland Clinic Rehabilitation Hospital, AvonGlucose [Mass/Vol]218 mg/bOYded91-09NeeXengbzSelect Medical Cleveland Clinic Rehabilitation Hospital, AvonGlucose [Mass/Vol]197 mg/tZQerb49-87TmoGwtyzvAccess Hospital [place] Glucose [Mass/Vol]175 mg/mSZpsn17-07HtbNxzznfAccess Hospital DaytonGlucose [Mass/Vol] 160 mg/eXSffg03-54EyaBjommhAccess Hospital DaytonHeparin unfractionated Chromogenic method Qn (PPP)on 28-09-5909LAHL XA UFH0.33 IU/mLNormal0.30-0.70Access Hospital DaytonComment on above:Result Comment: Optimal time for testing is 6 hrs post dosageThis test is specific for monitoring patientson UFH, and is not recommended for use withother Anti-Xa medications.Performed By: #### 3274-8 ####[facility] ([id number])[address] [place] [address] 466[address]CP CHEST 1 VWon 66-18-3432XG CHEST 1 VWNoalAccess Hospital Dayton BASIC METABOLIC PANLon 15-07-2135Sucex gap [Moles/Vol]11 mmol/LNormal5-15 [facility] HospitalComment on above:Performed By: #### CBCA, BMP ####[facility] ([id number])[address], [address] [place] [address] 40[address]Dfceknp [Mass/Vol]9.2 mg/dLNormal8.5-10.5ProMedOhio State Health System HospitalComment on above:Performed By: #### CBCA, BMP ####[facility] ([id number])[address], [address], [place] [address]Jndiaqbt [Moles/Vol]114 mmol/OPwdg96-062KspFdvpxd [facility] HospitalComment on above:Performed By: #### TI, BMP ####[facility] ([id number])[address] [address], [place] [address]IV7 [Moles/Vol]23 mmol/UCvjrhg48-94XovXjnpcv [facility] Comment on above:Performed By: #### TI, BMP ####[facility] ([id number])[address], [place] [address]Eyfjteijlw [Mass/Vol]0.88 mg/dLNormal0.60-1.30ProSelect Medical Cleveland Clinic Rehabilitation Hospital, AvonComment on above:Result Comment: METHOD TRACEABLE TO IDMS STANDARDPerformed By: #### TI BMP ####[facility] ([id number])[address], [place] [address]iENN (CKD-EPI) NON-RACE DEPENDENT>90Normal>59Pro[facility] HospitalComment on above:Result Comment: Reported eGFR is based on theCKD-EPI 2020 equation that doesnot use a race coefficient.Performed By: #### TI, BMP ####[facility] ([id number])[address], [place] [address]Fvgrzhw [Mass/Vol]264 mg/lZFwyt52-79YtcOdckro [place] HospitalComment on above:Performed By: #### TI, BMP ####[facility] ([id number])[address], [place] [address]Zdmglymks [Moles/Vol]3.9 mmol/LNormal3.5-5.0Pro[facility] HospitalComment on above:Performed By: #### TI, BMP ####[facility] ([id number])[address], [place] [address]Nutjui [Moles/Vol]148 mmol/CDfmx682-435DrjOsfids [place] HospitalComment on above: Performed By: #### CBCJenni, BMP ####[facility] ([id number])[address], [address] [place] [address]Soql nitrogen [Mass/Vol]29 mg/dLHigh5-27 [facility] HospitalComment on above:Performed By: #### CBCA, BMP ####[facility] ([id number])[address] [place] [address]KHF AND AUTO DIFFon 05-54-9157UENPNAHY BASOPHIL0.0 X10E9/LNormal0.0-0.2 ProMNation[facility] HospitalComment on above:Performed By: #### CBCA, BMP ####[facility] ([id number])[address] [place] [address]18[address]RZEQNRNR UKJPJELCFT82.1 X10E9/LHigh1.5-6.6[facility] HospitalComment on above:Performed By: #### CBCA, BMP ####[facility] ([id number])[address] [place] [address] 835[address]Qvugfgnll/100 WBC (Bld)0.3 %NormalProKindred Healthcare HospitalComment on above:Performed By: #### CBCA, BMP ####[facility] ([id number])[address] [place] [address] 022[address]Peumvybyart (Bld) [#/Vol]0.0 10*3/uLNormal0.0-0.4[facility] Comment on above:Performed By: #### CBCA, BMP ####[facility] ([id number])[address] [place] [address]Jdcoammjiqd/100 WBC (Bld) 0.3 %NormalProTrihealth Bethesda Butler Hospitalca Hayden HospitalComment on above:Performed By: #### CBCA, BMP ####[facility] ([id number])[address], [address], [place] [address]Boiussesmxt distribution width (RBC) [Ratio]15.1 %High11.5-15.0 ProMNationwide Children's Hospital HospitalComment on above:Performed By: #### CBCA, BMP ####[facility] ([id number])[address], [address], [place] [address]Kdxxwmgymm (Bld) [Volume fraction]44.5 %Czrexo79-88ZhjBbrkuj [place] HospitalComment on above:Performed By: #### CBCA, BMP ####[facility] ([id number])[address], [address], [place] [address]Xukywdwhcb (Bld) [Mass/Vol]14.6 g/wADqujaf82.0-17.0Pro[facility] HospitalComment on above: Performed By: #### CBCA, BMP ####[facility] ([id number])[address], [place] [address]Knsekshszvh (Bld) [#/Vol]1.3 10*3/uLNormal 1.0-3.5[facility] HospitalComment on above:Performed By: #### CBCA, BMP ####[facility] ([id number])[address], [place] [address]Tragqtilnul/100 WBC (Bld)8.7 %NormalProKindred Healthcare HospitalComment on above:Performed By: #### CBCA, BMP ####[facility] ([id number])[address], [place] [address]SLO (RBC) [Entitic mass] 30.4 anTjpizu91-54RajNcblxh [place] HospitalComment on above:Performed By: #### CBCA, BMP ####[facility] ([id number])[address], [place] [address]YRME (RBC) [Mass/Vol]32.9 g/gXPelubj59-14BdaVymcqu [facility] HospitalComment on above:Performed By: #### CBCA, BMP ####[facility] ([id number])[address], [place] [address]LKU (RBC) [Entitic vol]92 pLMgpoml79-802JwgNczjuj [facility] HospitalComment on above: Performed By: #### CBCA, BMP ####[facility] ([id number])[address], [address] [place] [address]Zkswcpbqq (Bld) [#/Vol]1.0 10*3/uLHigh0-0.9 [facility] HospitalComment on above:Performed By: #### CBCA, BMP ####[facility] ([id number])[address], [place] [address]Hlisvegie/100 WBC (Bld)6.7 %NormalProMedica Rockwell HospitalComment on above:Performed By: #### CBCA, BMP ####[facility] ([id number])[address], [address] [place] [address] 10[address]Chhnyttuylv/100 WBC (Bld) 84.0 %NormalProMedica Rockwell HospitalComment on above:Performed By: #### CBCA, BMP ####[facility] ([id number])[address], [place] [address]Uhueoddq mean volume (Bld) [Entitic vol]9.6 fLNormal7-12[facility] HospitalComment on above:Performed By: #### CBCA, BMP ####[facility] ([id number])[address], [address] [place] [address]Hkxdbjjxh (Bld) [#/Vol]141 10*3/iTVwt634-686WejThwwvh Rock[facility] HospitalComment on above: Performed By: #### CBCA, BMP ####[facility] ([id number])[address] [address] [place] [address]TED COUNT4.81 X10E12/LNormal4.10-5.70 [facility] DaytonComment on above:Performed By: #### TI BMP ####[facility] ([id number])[address] [address]FGX (Bld) [#/Vol]14.4 10*3/uLHigh4.0-11.0[facility] Hospital DaytonComment on above:Performed By: #### TK LUKE ####[facility] ([id number])[address] [place] [address]TC SWALLOW MOTILITY FUNCTIONon 59-26-5680SF SWALLOW MOTILITY FUNCTIONNormalAccess Hospital [place] Glucose Glucometer (BldC) [Mass/Vol]on 33-95-9575Iumnrtj [Mass/Vol]213 mg/dLHigh 65-99[facility] DaytonGlucose [Mass/Vol]234 mg/hWKpsq50-50QpvHtwhqeAccess Hospital DaytonGlucose [Mass/Vol]220 mg/lKSnmk47-05PiqRerwsrAccess Hospital [place] Glucose [Mass/Vol]241 mg/xYDpef11-20WniHvlkjrAccess Hospital DaytonGlucose [Mass/Vol] 250 mg/yEDqwg68-74KdzHplgwwAccess Hospital DaytonGlucose [Mass/Vol]206 mg/hWYell87-05 [facility] DaytonHeparin unfractionated Chromogenic method Qn (PPP)on 70-90-9843VTYP XA UFH0.36 IU/mLNormal0.30-0.70[facility] DaytonComment on above:Result Comment: Optimal time for testing is 6 hrs post dosageThis test is specific for monitoring patientson UFH, and is not recommended for use withother Anti-Xa medications.Performed By: #### 3274-8 ####[facility] ([id number])[address] [facility], [address] [place] [address]WDMV XA UFH0.30 IU/mLNormal0.30-0.70ProSelect [facility], AvonComment on above:Result Comment: Optimal time for testing is 6 hrs post dosageThis test is specific for monitoring patientson UFH, and is not recommended for use withother Anti-Xa medications.Performed By: #### 3274-8 ####[facility] ([id number])[address], [address], [place] [address]SLVGP METABOLIC PANLon 24-42-6496Isgwv gap [Moles/Vol]10 mmol/LNormal5-15[facility] Comment on above:Performed By: #### CBCA, BMP ####[facility] ([id number])[address], [address] [place] [address]Ueuuohd [Mass/Vol]8.9 mg/dL Normal8.5-10.5PMarietta Memorial HospitalComment on above:Performed By: #### CBCA, BMP ####[facility] ([id number])[address], [address] [place], [place] [address]Uvtwwsjh [Moles/Vol]113 mmol/IDoab94-363LyvEwoakpAccess Hospital Dayton Comment on above:Performed By: #### CBCA, BMP ####[facility] ([id number])[address], [address], [place] [address]AA4 [Moles/Vol]22 mmol/L Kxracy53-94SnfIqbzvaMarietta Memorial HospitalComment on above:Performed By: #### CBCA, BMP ####[facility] ([id number])[address] [place], [place] [address]Rtmosnqhtz [Mass/Vol]0.91 mg/dLNormal0.60-1.30ProSelect [facility] Hospital, AvonComment on above:Result Comment: METHOD TRACEABLE TO IDMS STANDARD Performed By: #### CBCA, BMP ####[facility] ([id number])[address] [address], [place] [address]fMXZ (CKD-EPI) NON-RACE DEPENDENT>90Normal >59ProKindred Healthcare HospitalComment on above:Result Comment: Reported eGFR is based on theCKD-EPI 2020 equation that doesnot use a race coefficient.Performed By: #### TI, BMP ####[facility] ([id number])[address], [place] [address]Onzkvrv [Mass/Vol]277 mg/pRSgrv98-85BeaWzxzsv [facility] HospitalComment on above:Performed By: #### TI, BMP ####[facility] ([id number])[address] [address]Mfdttvytv [Moles/Vol]3.9 mmol/LNormal3.5-5.0ProKindred Healthcare HospitalComment on above: Performed By: #### TI, BMP ####[facility] ([id number])[address] [place] [address] 12444Lawgsa [Moles/Vol]145 mmol/QKwnzdo396-496 [facility] AdministrationComment on above:Performed By: #### TI, BMP ####[facility] ([id number])[address], [place] [address]Cxot nitrogen [Mass/Vol]32 mg/dLHigh5-27ProKindred Healthcare HospitalComment on above:Performed By: #### CBCJenni, BMP ####[facility] ([id number])[address] [place] [address] 735[address]UOM AND AUTO DIFFon 23-62-3866EXZYSXLR BASOPHIL0.1 X10E9/LNormal0.0-0.2PMarietta Memorial Hospital Comment on above:Performed By: #### CBCJenni, BMP ####[facility] ([id number])[address] [place] [address], [place] [address]EGLRQUTU KGQGKQZGKS73.3 X10E9/LHigh1.5-6.6ProKindred Healthcare HospitalComment on above:Performed By: #### CBCA, BMP ####[facility] ([id number])[address], [place] [address]Icqrwsyec/100 WBC (Bld)0.6 %NormalCorey Hospital Hospital Comment on above:Performed By: #### CBCA, BMP ####[facility] ([id number])[address] [place] [address] 060[address]Lsdebcqrgav (Bld) [#/Vol] 0.0 10*3/uLNormal0.0-0.4ProKindred Healthcare HospitalComment on above:Performed By: #### CBCA, BMP ####[facility] ([id number])[address], [place] [address]Rpgbwleiigh/100 WBC (Bld)0.2 %NormalProKindred Healthcare HospitalComment on above:Performed By: #### CBCA, BMP ####[facility] ([id number])[address] [place] [address]Sorwhxtygbe distribution width (RBC) [Ratio]15.2 %High11.5-15.0[facility] Comment on above:Performed By: #### CBCA, BMP ####[facility] ([id number])[address] [place] [address]Dlbwbybrqx (Bld) [Volume fraction]45.1 %Lxjudg86-19SuiRnmxcu [place] HospitalComment on above:Performed By: #### CBCA, BMP ####[facility] ([id number])[address] [place] [address] 14461Kyxmveepzb (Bld) [Mass/Vol]14.7 g/mESbmodf93.0-17.0 [facility] HospitalComment on above:Performed By: #### CBCA, BMP ####[facility] ([id number])[address], [place] [address]Hejldwqucky (Bld) [#/Vol]1.4 10*3/uLNormal1.0-3.5[facility] Comment on above:Performed By: #### CBCA, BMP ####[facility] ([id number])[address], [place] [address]Feovekrzubd/100 WBC (Bld) 10.9 %NormalProMedica Hayden HospitalComment on above:Performed By: #### CBCA, BMP ####[facility] ([id number])[address], [place] [address]IIN (RBC) [Entitic mass]30.1 tvNmnnoj03-24IwxUgtvnt [facility] HospitalComment on above:Performed By: #### CBCA, BMP ####[facility] ([id number])[address], [address], [place] [address]UAYZ (RBC) [Mass/Vol]32.5 g/hJTrwfdl68-92XcqVkjtjd [facility] HospitalComment on above: Performed By: #### CBCA, BMP ####[facility] ([id number])[address], [address], [place] [address]DIT (RBC) [Entitic vol]93 fQBlplrx41-554 [facility] HospitalComment on above:Performed By: #### CBCA, BMP ####[facility] ([id number])[address], [address] [place] [address] 776[address]Dttwngnmc (Bld) [#/Vol]1.0 10*3/uLHigh0-0.9Pro[facility]ica [facility] HospitalComment on above:Performed By: #### CBCA, BMP ####[facility] ([id number])[address], [place] [address]Lpevjcpvz/100 WBC (Bld)8.0 %NormalProMedica Rockwell HospitalComment on above:Performed By: #### CBCA, BMP ####[facility] ([id number])[address], [address], [place] [address]Csghayeuyol/100 WBC (Bld)80.3 %NormalProMedica Rockwell HospitalComment on above:Performed By: #### CBCA, BMP ####[facility] ([id number])[address], [address], [place] [address]Xdmlowdh mean volume (Bld) [Entitic vol]9.4 fLNormal7-12Pro[facility]ica [facility] HospitalComment on above:Performed By: #### CBCA, BMP ####[facility] ([id number])[address], [address], [place] [address]Zaqxombee (Bld) [#/Vol]150 10*3/nCDlkmhn142-508 [facility] HospitalComment on above:Performed By: #### CBCA, BMP ####[facility] ([id number])[address], [address] [place] [address]WXJ COUNT4.87 X10E12/LNormal4.10-5.70[facility]ica [facility] HospitalComment on above:Performed By: #### CBCA, BMP ####[facility] ([id number])[address], [address], [place] [address]CGS (Bld) [#/Vol]12.8 10*3/uLHigh4.0-11.0[facility] HospitalComment on above:Performed By: #### CBCA, BMP ####[facility] ([id number])[address], [address], [place] [address]Ruwnkaf Glucometer (BldC) [Mass/Vol]on 60-35-0022Lqepvlz [Mass/Vol]219 mg/wIGqwx05-54IywPtcvvvSelect Medical [facility], AvonGlucose [Mass/Vol]272 mg/dL Qenf17-35PyyBbvmhxSelect Medical [facility], AvonGlucose [Mass/Vol]279 mg/pXCrwm89-78LroUcldfvSelect Medical [facility], AvonGlucose [Mass/Vol]282 mg/tHCjbw53-70PgiOlmsjaSelect Medical [facility], [place] Glucose [Mass/Vol]279 mg/zULgwm77-85HolMvtcfbAccess Hospital DaytonHEMOGLOBINon 38-61-2680Rpltijzdrs (Bld) [Mass/Vol]14.7 g/tGElmzka65.0-17.0Access Hospital DaytonComment on above:Performed By: #### 718-7, PLTCT, PINR, 74698-1 ####[facility] ([id number])[address], [address] [place] [address]Nfzrhrd unfractionated Chromogenic method Qn (PPP)on 40-15-8890WLCS XA UFH 0.05 IU/mLLow0.30-0.70Access Hospital DaytonComment on above:Result Comment: Optimal time for testing is 6 hrs post dosageThis test is specific for monitoring patientson UFH, and is not recommended for use withother Anti-Xa medications.Performed By: #### 3274-8 ####[facility] ([id number])[address], [address] [place] [address]Gqelqbjso Ionized ISE (Bld) [Moles/Vol]on 77-07-4970Zdgfppszf [Moles/Vol]0.67 mmol/LNormal0.45-0.74 [facility] Hospital DaytonComment on above:Result Comment: NEW REFERENCE RANGE Performed By: #### 38713-7 ####[facility] ([id number])[address], [address] [place] [address] 02137ZDKYRNEPVYef 81-27-8187Kzactcuqf [Mass/Vol] 2.3 mg/dLLow2.4-4.9[facility] HospitalComment on above:Performed By: #### 2777-1 ####[facility] ([id number])[address], [address], [place] [address]AUEOSEBJ COUNT AND MPVon 06-21-0223Cszxlcli mean volume (Bld) [Entitic vol]9.5 fLNormal7-12PSal[facility] HospitalComment on above: Performed By: #### 718-7, PLTCT, PINR, 97622-0 ####[facility] ([id number])[address], [address], [place] [address]Ulsuorgmh (Bld) [#/Vol]138 10*3/uIQcq777-191LpkMcsxqm [place] HospitalComment on above:Performed By: #### 718-7, PLTCT, PINR, 75361-7 ####[facility] ([id number])[address], [address], [place] [address]DMAQZND AND INRon 59-23-3975JYR Coag (PPP) [Relative time]1.2 {INR}High0.8-1.1PSalem City Hospital HospitalComment on above: Performed By: #### 718-7, PLTCT, PINR, 79076-0 ####[facility] ([id number])[address], [address], [place] [address]JN Coag (PPP) [Time]13.4 s High9.8-13.2PSalem City Hospital HospitalComment on above:Performed By: #### 718-7, PLTCT, PINR, 62464-0 ####[facility] ([id number])[address], [place] [address]cNLW Coag (PPP) [Time]on 91-06-0981oONY Coag (Bld) [Time]27 nIxnvsk60-35DfhZphqxl [place] HospitalComment on above:Performed By: #### 718-7, PLTCT, PINR, 34495-3 ####[facility] ([id number])[address], [address], [place] [address]XADKU METABOLIC PANLon 80-96-7378Ycnin gap [Moles/Vol]10 mmol/LNormal5-15[facility] Comment on above:Performed By: #### CBCJenni, BMP ####[facility] ([id number])[address], [address], [place] [address]Ktxmwzb [Mass/Vol]8.9 mg/dL Normal8.5-10.5PMarietta Memorial HospitalComment on above:Performed By: #### CBCJenni, BMP ####[facility] ([id number])[address], [address] [place], [place] [address]Drooscxu [Moles/Vol]115 mmol/FVcyp69-528HlbNtzozxAccess Hospital [facility] Comment on above:Performed By: #### CBCJenni, BMP ####[facility] ([id number])[address], [address], [place] [address]KM3 [Moles/Vol]23 mmol/L Ynwmke74-76LzqKrswhtMarietta Memorial HospitalComment on above:Performed By: #### CBCA, BMP ####[facility] ([id number])[address], [address] [place], [place] [address]Hmfvbmcgqo [Mass/Vol]0.94 mg/dLNormal0.60-1.30Access Hospital DaytonComment on above:Result Comment: METHOD TRACEABLE TO IDMS STANDARD Performed By: #### CBCA, BMP ####[facility] ([id number])[address], [address], [place] [address]KAK/1.73 sq M.predicted among non-blacks MDRD (S/P/Bld) [Vol rate/Area]89 mL/min/{1.73_m2}Normal>59ProSelect Medical Cleveland Clinic Rehabilitation Hospital, AvonComment on above:Result Comment: Reported eGFR is based on theCKD-EPI 2020 equation that doesnot use a race coefficient.Performed By: #### TI BMP ####[facility] ([id number])[address], [address] [place] [address]Glcpekh [Mass/Vol]204 mg/zYSqvt30-39XqcKqopti [facility] HospitalComment on above:Performed By: #### TI, BMP ####[facility] ([id number])[address], [address] [place] [address]Upwnrniay [Moles/Vol]3.8 mmol/LNormal3.5-5.0[facility] HospitalComment on above:Performed By: #### TI BMP ####[facility] ([id number])[address], [address] [place] [address]Lwpzwa [Moles/Vol]148 mmol/QQsef169-498NcrQkxwlj [facility] HospitalComment on above:Performed By: #### TI, BMP ####[facility] ([id number])[address], [address] [place] [address]Xbls nitrogen [Mass/Vol]28 mg/dLHigh5-27[facility] HospitalComment on above:Performed By: #### TI BMP ####[facility] ([id number])[address], [address] [place] [address]VKP AND AUTO DIFFon 90-98-0833EKRYRSNE BASOPHIL0.1 X10E9/LNormal0.0-0.2[facility] HospitalComment on above:Performed By: #### TI, BMP ####[facility] ([id number])[address] [place] [address]VCVLPONZ NEUTROPHIL7.8 X10E9/LHigh1.5-6.6[facility] HospitalComment on above:Performed By: #### TI, BMP ####[facility] ([id number])[address], [address], [place] [address]Jkfasbnqj/100 WBC (Bld)1.1 %NormalProMedica Hayden HospitalComment on above:Performed By: #### CBCA, BMP ####[facility] ([id number])[address], [address], [place] [address]Uycfrntksal (Bld) [#/Vol]0.0 10*3/uLNormal0.0-0.4[facility] HospitalComment on above:Performed By: #### CBCA, BMP ####[facility] ([id number])[address], [address] [address] Eosinophils/100 WBC (Bld)0.2 %NormalProTrihealth Bethesda Butler Hospitalca [facility] HospitalComment on above: Performed By: #### CBCA, BMP ####[facility] ([id number])[address], [address], [place] [address]Jfzfxidxazg distribution width (RBC) [Ratio] 15.1 %High11.5-15.0ProTrihealth Bethes[facility] Butler Hospitalca [facility] HospitalComment on above:Performed By: #### CBCA, BMP ####[facility] ([id number])[address], [place] [address]Ofbgcmnhpq (Bld) [Volume fraction]45.5 %Ltbqkn58-98MhpJpvtjh [facility] HospitalComment on above:Performed By: #### CBCA, BMP ####[facility] ([id number])[address], [place] [address]Esfgbxbztr (Bld) [Mass/Vol]15.1 g/bXDbijbk38.0-17.0ProTrihealth [facility] Hospitalca [facility] HospitalComment on above:Performed By: #### CBCA, BMP ####[facility] ([id number])[address], [address], [place] [address]Dkikkrivbxx (Bld) [#/Vol] 1.2 10*3/uLNormal1.0-3.5[facility] HospitalComment on above:Performed By: #### CBCA, BMP ####[facility] ([id number])[address], [address], [place] [address]Iagvpssdypr/100 WBC (Bld)11.8 %NormalProMedica Rockwell HospitalComment on above:Performed By: #### CBCA, BMP ####[facility] ([id number])[address], [place] [address]QDS (RBC) [Entitic mass]30.6 cnEvrcum90-45TwfKnvdll [facility] HospitalComment on above: Performed By: #### CBCA, BMP ####[facility] ([id number])[address], [address], [place] [address]LYWU (RBC) [Mass/Vol]33.2 g/eQBqgtmc80-53 [facility] HospitalComment on above:Performed By: #### CBCA, BMP ####[facility] ([id number])[address], [address], [place] [address]OIL (RBC) [Entitic vol]92 mUKavhbq37-872UgmTmozfo [facility] HospitalComment on above:Performed By: #### CBCA, BMP ####[facility] ([id number])[address], [address], [place] [address]Alsotjffc (Bld) [#/Vol]0.7 10*3/uLNormal0-0.9[facility] HospitalComment on above:Performed By: #### CBCA, BMP ####[facility] ([id number])[address], [address], [place] [address]Fjkjkrggg/100 WBC (Bld)7.5 %NormalProMedica [facility] Hospital Comment on above:Performed By: #### CBCJenni, BMP ####[facility] ([id number])[address], [address] [place] [address]Llawrskmtdy/100 WBC (Bld) 79.4 %NormalProTrihealth Bethesda Butler Hospitalca [facility] HospitalComment on above:Performed By: #### CBCA, BMP ####[facility] ([id number])[address], [address] [place] [address]Qyhykvyj mean volume (Bld) [Entitic vol]8.9 fLNormal7-12[facility] HospitalComment on above:Performed By: #### CBCJenni, BMP ####[facility] ([id number])[address], [address] [place] [address]Wzcizklwu (Bld) [#/Vol]163 10*3/tCFdynqo786-697PqqAdnqwm [facility] HospitalComment on above: Performed By: #### CBCJenni, BMP ####[facility] ([id number])[address], [address] [place] [address]OZO COUNT4.94 X10E12/LNormal4.10-5.70 [facility] HospitalComment on above:Performed By: #### CBCA, BMP ####[facility] ([id number])[address] [place] [address]YVG (Bld) [#/Vol]9.8 10*3/uLNormal4.0-11.0[facility] HospitalComment on above:Performed By: #### CBCA, BMP ####[facility] ([id number])[address] [place] [address]Gfjnzpw Glucometer (BldC) [Mass/Vol]on 66-18-6479Ysepfhm [Mass/Vol]245 mg/nGXcsk52-02IztJnnorn [facility] HospitalGlucose [Mass/Vol]219 mg/xKTtrx48-91GzkPygumc [facility] HospitalGlucose [Mass/Vol]184 mg/oXLlkc99-96FrqHzfxvi [facility] HospitalGlucose [Mass/Vol]156 mg/dL Jxnd26-77GpsEisdex [facility] HospitalGlucose [Mass/Vol]178 mg/mUGebu41-85AesQeigwc [facility] HospitalGlucose [Mass/Vol]167 mg/nRBegt93-83MgfUeobpi [facility] Glucose [Mass/Vol]177 mg/uTDwes73-75PvbLhszpq [facility] HospitalPLATELET COUNT AND MPVon 28-76-0793Zkfmgieq mean volume (Bld) [Entitic vol]8.7 fLNormal7-12 ProMNationwide [facility] HospitalComment on above:Performed By: #### PLTCT ####[facility] ([id number])0 [facility], [address] [place] [address] Platelets (Bld) [#/Vol]156 10*3/xHLkregg094-419BbrQfceyy [facility] HospitalComment on above:Performed By: #### PLTCT ####[facility] ([id number])[address] [facility], [address] [place] [address]AB CHEST 1 VWon 06-15-2024 XR CHEST 1 VWNormalProMedica Hayden HospitalBLOOD CULTUREon 41-75-3965Yrtkybkr identified Aer cx Nom (Bld)CULTURE RESULTS NO GROWTH 5 DAYSNormalProMedica Rockwell HospitalBacteria identified Aer cx Nom (Bld)CULTURE RESULTS NO GROWTH 5 DAYSNormalProMedica Rockwell HospitalCBC AND AUTO DIFFon 06-14-2024 ABSOLUTE BASOPHIL0.0 X10E9/LNormal0.0-0.2[facility] HospitalComment on above:Performed By: #### CBCA ####[facility] ([id number])[address], [address] [place] [address]UBZXIGRP NEUTROPHIL9.6 X10E9/LHigh1.5-6.6 [facility] HospitalComment on above:Performed By: #### CBCA ####[facility] ([id number])[address] [address] Basophils/100 WBC (Bld)0.3 %NormalProMedica Hayden HospitalComment on above: Performed By: #### CBCA ####[facility] ([id number])[address], [address], [place] [address]Vyofaxcummx (Bld) [#/Vol]0.0 10*3/uLNormal 0.0-0.4[facility] HospitalComment on above:Performed By: #### CBCA ####[facility] ([id number])[address], [address] [place] [address]Ynyavltpnfs/100 WBC (Bld)0.1 %NormalProTrihealth Bethesda Butler Hospitalca [facility] HospitalComment on above:Performed By: #### CBCA ####[facility] ([id number])[address], [address], [place] [address]Yaepjrbxbuy distribution width (RBC) [Ratio] 15.3 %High11.5-15.0Pro[facility] HospitalComment on above:Performed By: #### CBCA ####[facility] ([id number])[address], [address], [place] [address]Nkemwgdpom (Bld) [Volume fraction]46.3 %Jnmlfw08-34RvyDpoduf [facility] HospitalComment on above:Performed By: #### CBCA ####[facility] ([id number])[address], [address], [place] [address]Nztyglcgvp (Bld) [Mass/Vol]15.4 g/qQYpgnek42.0-17.0ProTrihealth [facility] Hospitalca [facility] HospitalComment on above: Performed By: #### CBCA ####[facility] ([id number])[address], [address], [place] [address]Rmnfvewwjhx (Bld) [#/Vol]1.5 10*3/uLNormal 1.0-3.5[facility] HospitalComment on above:Performed By: #### CBCA ####[facility] ([id number])[address], [address], [place] [address]Nlsvywqvwcn/100 WBC (Bld)12.2 %NormalProMedica Rockwell HospitalComment on above:Performed By: #### CBCA ####[facility] ([id number])[address], [place] [address]HVI (RBC) [Entitic mass]30.3 bfHcqzza40-99 [facility] HospitalComment on above:Performed By: #### CBCA ####[facility] ([id number])[address], [place] [address]ETXC (RBC) [Mass/Vol]33.3 g/lZSjkjwa38-80PwdYbwdoz [facility] HospitalComment on above: Performed By: #### CBCA ####[facility] ([id number])[address], [address] [place] [address]XDR (RBC) [Entitic vol]91 pYZhtbyp80-555 [facility] HospitalComment on above:Performed By: #### CBCA ####[facility] ([id number])[address], [place] [address] Monocytes (Bld) [#/Vol]1.0 10*3/uLHigh0-0.9[facility] HospitalComment on above:Performed By: #### CBCA ####[facility] ([id number])[address], [address] [place] [address]Thmtbzwbe/100 WBC (Bld)8.0 %NormalProMedica Rockwell HospitalComment on above:Performed By: #### CBCA ####[facility] ([id number])[address] [place] [address]Rafygflnbhn/100 WBC (Bld)79.4 %NormalProKindred Healthcare HospitalComment on above:Performed By: #### CBCA ####[facility] ([id number])[address] [address] [place] [address] 22730Ciepqnxq mean volume (Bld) [Entitic vol]8.9 fLNormal7-12 [facility] HospitalComment on above:Performed By: #### CBCA ####[facility] ([id number])[address] [address] [place] [address]50 Platelets (Bld) [#/Vol]183 10*3/uFWbiuar818-436UscVipuso [place] HospitalComment on above:Performed By: #### CBCA ####[facility] ([id number])[address] [address] [place] [address] 16662FOL COUNT5.09 X10E12/L Normal4.10-5.70ProKindred Healthcare HospitalComment on above:Performed By: #### CBCA ####[facility] ([id number])[address] [address] [place] [address] 14292WHI (Bld) [#/Vol]12.0 10*3/uLHigh4.0-11.0[facility] Comment on above:Performed By: #### CBCA ####[facility] ([id number])[address] [address] [place] [address] 85766SEXLMKUQWUGUX METABOLIC PANELon 34-59-0348Zntacap [Mass/Vol]3.5 g/dLNormal3.2-5.3PNorth Oaks Medical Centerica Hayden HospitalComment on above:Performed By: #### 718-7, CMP, 63180-5 ####[facility] ([id number])[address] [address], [place] [address]YVK [Catalytic activity/Vol]45 U/OBvwftx79-614FulTaqagi Rockwell HospitalComment on above:Performed By: #### 718-7, CMP, 73296-4 ####[facility] ([id number])[address], [place] [address]SZV [Catalytic activity/Vol] 27 U/LNormal0-40[facility] HospitalComment on above:Performed By: #### 718-7, CMP, 28928-7 ####[facility] ([id number])[address], [place] [address]Oqiij gap [Moles/Vol]9 mmol/LNormal5-15[facility] HospitalComment on above:Performed By: #### 718-7, CMP, 35253-0 ####[facility] ([id number])[address], [place] [address]TFP [Catalytic activity/Vol]32 U/LNormal0-41[facility] HospitalComment on above:Performed By: #### 718-7, CMP, ####[facility] ([id number])[address], [place] [address]Yhbbsmriv [Mass/Vol]1.0 mg/dLNormal0.3-1.2Pro[facility] HospitalComment on above:Performed By: #### 718-7, CMP, ####[facility] ([id number])[address], [place] [address]Traagwf [Mass/Vol]9.2 mg/dLNormal8.5-10.5Pro[facility] Rock[facility] HospitalComment on above:Performed By: #### 718-7, CMP, 73288-0 ####[facility] ([id number])[address], [place] [address]Qdjlhzlw [Moles/Vol]112 mmol/RMijy00-603OfqUlozfvSelect Medical [facility] Rehabilitation Hospital, AvonComment on above:Performed By: #### 718-7, EUGENIO, ####[facility] ([id number])[address] [place] [address]EU9 [Moles/Vol]27 mmol/L Mazudb50-71YysEpqahf [place] HospitalComment on above:Performed By: #### 718-7, EUGENIO, ####[facility] ([id number])[address], [place] [address]Pbentsdeyi [Mass/Vol]1.17 mg/dLNormal0.60-1.30ProSelect Medical Cleveland Clinic Rehabilitation Hospital, AvonComment on above:Result Comment: METHOD TRACEABLE TO IDMS STANDARDPerformed By: #### 718-7, EUGENIO, ####[facility] ([id number])[address], [place] [address]LKC/1.73 sq M.predicted among non-blacks MDRD (S/P/Bld) [Vol rate/Area]69 mL/min/{1.73_m2}Normal>59 ProMTrinity Health System East CampusComment on above:Result Comment: Reported eGFR is based on theCKD-EPI 2020 equation that doesnot use a race coefficient.Performed By: #### 718-7, EUGENIO, ####[facility] ([id number])[address], [place] [address]Cklcsqs [Mass/Vol]175 mg/zOQkpw77-36VgvMaxtfwSelect Medical [facility] Clinic Rehabilitation Hospital, AvonComment on above:Performed By: #### 718-7, EUGENIO, ####[facility] ([id number])[address] 59971Mccyuwprd [Moles/Vol]4.1 mmol/LNormal3.5-5.0[facility] Comment on above:Performed By: #### 718-7, CMP, ####[facility] ([id number])[address] [place] [address] 38353Abzayhp [Mass/Vol]6.8 g/dLNormal6.0-8.0Pro[facility]well HospitalComment on above: Performed By: #### 718-7, CMP, 21580-3 ####[facility] ([id number])[address] [place] [address] 96632Tssqnd [Moles/Vol]148 mmol/L Uagz963-183IuwUnisst [facility] HospitalComment on above:Performed By: #### 718-7, CMP, ####[facility] ([id number])[address] [place] [address] 96153Axpt nitrogen [Mass/Vol]35 mg/dLHigh5-27Pro[facility] HospitalComment on above:Performed By: #### 718-7, CMP, ####[facility] ([id number])[address] [place] [address] 89834 Glucose Glucometer (BldC) [Mass/Vol]on 67-23-9115Lzwguiw [Mass/Vol]189 mg/dLHigh 65-99Pro[facility] HospitalGlucose [Mass/Vol]160 mg/vPAisp17-40WidSvngvj [facility] HospitalGlucose [Mass/Vol]175 mg/rMQthy61-16VuiHuiruh [facility] Glucose [Mass/Vol]181 mg/dXTrao10-27TgzOsgydf [facility] HospitalGlucose [Mass/Vol] 163 mg/jGRnbj03-83LbeVscipp [facility] HospitalGlucose [Mass/Vol]174 mg/kQTllr50-80 [facility] HospitalGlucose [Mass/Vol]258 mg/jFHimr72-76PbuUxnjnu [facility] HospitalHEMOGLOBINon 54-82-6579Hoisenmqqa (Bld) [Mass/Vol]15.4 g/dLNormal 13.0-17.0Pro[facility] HospitalComment on above:Performed By: #### 718-7, CMP, 73579-6 ####[facility] ([id number])[address] [place] [address] 86815CWIQSCHRJhl 34-73-7999Zmfbiuwin [Mass/Vol]2.2 mg/dLNormal 1.8-2.6Pro[facility] HospitalComment on above:Performed By: #### 718-7, CMP, 72946-7 ####[facility] ([id number])[address] [place] [address] 11538AHJUJQPNOBqa 48-97-8325Nowgqqyhq Ql (U)NegativeNormalNEG [facility]okcwell HospitalComment on above:Performed By: #### UA ####[facility] ([id number])[address], [address] [place] [address] 41526 BLOOD/HGBMODERATEAbnormalNEGProMedica Rockwell HospitalComment on above:Performed By: #### UA ####[facility] ([id number])[address], [address] [place] [address] 54949Eftkn (U)YELLOWNormalYELLOWProMedica Rockwell HospitalComment on above:Performed By: #### UA ####[facility] ([id number])[address], [address] [place] [address] 75948Afwxmqp Ql (U)NegativeNormalNEGProMedica Rockwell HospitalComment on above:Performed By: #### UA ####[facility] ([id number])[address], [address] [place] [address] 22984Gumpzqi Ql (U) NegativeNormalNEGProMedica Rockwell HospitalComment on above:Performed By: #### UA ####[facility] ([id number])[address], [address] [place] [address] 97138Sexxxlupn esterase Test strip Ql (U)NegativeNormalNEGProMedica Rockwell HospitalComment on above:Performed By: #### UA ####[facility] ([id number])[address] [place] [address] 60353IVSSJOYNJNPFLOxgyslokUDIV [facility] HospitalComment on above:Performed By: #### UA ####[facility] ([id number])[address] [place] [address] 65581 Nitrite Ql (U)NegativeNormalNEGProTrihealth Bethesda Butler Hospitalca [facility]den HospitalComment on above: Performed By: #### UA ####[facility] ([id number])0 [facility], [address] [place] [address] 63616hC (U)5.5 [pH]Normal5.0-8.5Pro[facility] HospitalComment on above:Performed By: #### UA ####[facility] ([id number])[address] [facility], [address] [place] [address] 86486Gthppyw Ql (U)30 mg/dL AbnormalNEGProMedica Hayden HospitalComment on above:Performed By: #### UA ####[facility] ([id number])[address], [address] [place] [address] 39990G.B.CELLS47 /hpfHigh0-5Pro[facility] HospitalComment on above:Performed By: #### UA ####[facility] ([id number])[address], [address] [place] [address] 68015Kobwnehl gravity (U) [Rel density]1.964Iyrqdl1.003-1.035 [facility] HospitalComment on above:Performed By: #### UA ####[facility] ([id number])[address], [address] [place] [address] 27507 SQUAMOUS EPITHELIUM<6Blokct6-6JgdEgyslh [facility] HospitalComment on above: Performed By: #### UA ####[facility] ([id number])[address], [address] [address]IAMRPFTQVBTRUXYvnwrhMRCZDHpiAetmfb [facility] HospitalComment on above:Performed By: #### UA ####[facility] ([id number])[address], [address] [address]Bbsacsgxzjpp (U) [Mass/Vol] mg/dLNormal<1.1Pro[facility] HospitalComment on above:Performed By: #### UA ####[facility] ([id number])[address], [address],[place] [address]J.B.CELLS2 /hpfNormal0-5PSurgical [facility]ty Center [facility] HospitalComment on above:Performed By: #### UA ####[facility] ([id number])[address] [address]TQFYC METABOLIC PANLon 28-96-6864Jgtim gap [Moles/Vol]13 mmol/LNormal5-15[facility] HospitalComment on above:Performed By: #### CBCJenni, BMP ####[facility] ([id number])[address], [address], [place] [address]Phjzqbw [Mass/Vol]9.4 mg/dLNormal8.5-10.5PSalem City Hospital HospitalComment on above:Performed By: #### CBCJenni, BMP ####[facility] ([id number])[address], [address], [place] [address]Ryfrazxv [Moles/Vol]108 mmol/VTebziy22-055AxmHyynbl [facility] HospitalComment on above: Performed By: #### CBCA, BMP ####[facility] ([id number])[address], [place] [address]LV1 [Moles/Vol]24 mmol/GQvvyoj96-63BktJeivmw [facility] HospitalComment on above:Performed By: #### TI BMP ####[facility] ([id number])[address] [address] [address] Creatinine [Mass/Vol]1.10 mg/dLNormal0.60-1.30ProTri[facility] Hospitalca [facility]den HospitalComment on above:Result Comment: METHOD TRACEABLE TO IDMS STANDARDPerformed By: #### TI, BMP ####[facility] ([id number])[address], [place] [address]ADK/1.73 sq M.predicted among non-blacks MDRD (S/P/Bld) [Vol rate/Area]74 mL/min/{1.73_m2}Normal>59[facility] HospitalComment on above: Result Comment: Reported eGFR is based on theCKD-EPI 2020 equation that doesnot use a race coefficient.Performed By: #### TI BMP ####[facility] ([id number])[address], [place] [address]Cwyqibc [Mass/Vol]330 mg/mMYtuc11-05XsbZwdxqe [facility] HospitalComment on above:Performed By: #### TI, BMP ####[facility] ([id number])[address] [place], [place] [address]Xowmdridn [Moles/Vol]4.4 mmol/LNormal3.5-5.0Pro[facility] Hospitalca [facility] HospitalComment on above:Performed By: #### TI, BMP ####[facility] ([id number])[address], [place] [address]Hsxnql [Moles/Vol]145 mmol/HKbdfux827-144IvpVcfhtd [facility] HospitalComment on above: Performed By: #### TI, BMP ####[facility] ([id number])[address], [place] [address]Mxrx nitrogen [Mass/Vol]30 mg/dLHigh5-27 [facility] HospitalComment on above:Performed By: #### CBCA, BMP ####[facility] ([id number])[address], [place] [address]HOG AND AUTO DIFFon 37-35-0738OSJPHRGZ BASOPHIL0.1 X10E9/LNormal0.0-0.2 ProMN[facility] HospitalComment on above:Performed By: #### CBCA, BMP ####[facility] ([id number])[address], [place] [address]ENVUGTYM NEUTROPHIL9.0 X10E9/LHigh1.5-6.6Pro[facility] Healthcare HospitalComment on above:Performed By: #### CBCA, BMP ####[facility] ([id number])[address] [place] [address] 43135Cquxvneow/100 WBC (Bld)0.5 %NormalProKindred Healthcare HospitalComment on above:Performed By: #### CBCA, BMP ####[facility] ([id number])[address], [address] [place] [address] 23909Tzzkdrsgyyj (Bld) [#/Vol]0.0 10*3/uLNormal0.0-0.4[facility] Comment on above:Performed By: #### CBCA, BMP ####[facility] ([id number])[address] [place] [address] 15508Utxlejahkxk/100 WBC (Bld) 0.1 %NormalProKindred Healthcare HospitalComment on above:Performed By: #### CBCA, BMP ####[facility] ([id number])[address], [address] [facility], [place] [address]Olcytzsjbsu distribution width (RBC) [Ratio]15.3 %High11.5-15.0 ProMNationwide [facility]'s Hospital HospitalComment on above:Performed By: #### CBCA, BMP ####[facility] ([id number])[address], [address] [place] [address] 89118Sbousvkvlc (Bld) [Volume fraction]45.7 %Pdpmvr42-13DruRfnimr [facility] HospitalComment on above:Performed By: #### CBCA, BMP ####[facility] ([id number])[address], [address] [place] [address] 71656Qprhqxwpda (Bld) [Mass/Vol]15.4 g/oSVkpihk18.0-17.0[facility] HospitalComment on above: Performed By: #### CBCA, BMP ####[facility] ([id number])[address], [address] [place] [address] 10728Acqqsjvnziw (Bld) [#/Vol]1.3 10*3/uLNormal 1.0-3.5[facility] HospitalComment on above:Performed By: #### CBCA, BMP ####[facility] ([id number])[address], [address] [place] [address] 70789Uqftvjvjwod/100 WBC (Bld)11.1 %NormalProMedica Rockwell HospitalComment on above:Performed By: #### CBCA, BMP ####[facility] ([id number])[address], [address] [place] [address] 40963ONU (RBC) [Entitic mass] 30.8 plBcxiiu43-18ZiaVrdiel [facility] HospitalComment on above:Performed By: #### CBCA, BMP ####[facility] ([id number])[address], [address] [place] [address] 84423CVHR (RBC) [Mass/Vol]33.7 g/pJVnnira18-68ZglIzvirz [facility] HospitalComment on above:Performed By: #### CBCA, BMP ####[facility] ([id number])[address], [place] [address]HWP (RBC) [Entitic vol]92 wSTpdryw99-522TybUvfwcp [facility] HospitalComment on above: Performed By: #### CBCA, BMP ####[facility] ([id number])[address], [place] [address]Yhzayiuqw (Bld) [#/Vol]1.0 10*3/uLHigh0-0.9 [facility] HospitalComment on above:Performed By: #### CBCA, BMP ####[facility] ([id number])[address], [place] [address]Nheubyebg/100 WBC (Bld)8.9 %NormalProMedica Rockwell HospitalComment on above:Performed By: #### CBCA, BMP ####[facility] ([id number])[address], [place] [address]Sqrejxyacfh/100 WBC (Bld) 79.4 %NormalProMedica Rockwell HospitalComment on above:Performed By: #### CBCA, BMP ####[facility] ([id number])[address] [facility], [place] [address]Yogfpcpe mean volume (Bld) [Entitic vol]8.8 fLNormal7-12[facility] HospitalComment on above:Performed By: #### CBCA, BMP ####[facility] ([id number])[address], [place] [address]Dvlwlgsvj (Bld) [#/Vol]181 10*3/iITfudjs181-812OuxKcqtcg [facility] HospitalComment on above: Performed By: #### CBCA, BMP ####[facility] ([id number])[address], [place] [address]GWI COUNT4.99 X10E12/LNormal4.10-5.70 [facility] HospitalComment on above:Performed By: #### TI BMP ####[facility] ([id number])[address], [place] [address]JXH (Bld) [#/Vol]11.3 10*3/uLHigh4.0-11.0[facility] HospitalComment on above:Performed By: #### TI, BMP ####[facility] ([id number])[address], [place] [address]Qmyhahy Glucometer (BldC) [Mass/Vol]on 85-59-2496Kzdbseu [Mass/Vol]263 mg/qWEngg52-95JfoKhpgzm [facility] HospitalGlucose [Mass/Vol]281 mg/hNVnek74-19QklLmpdxe [facility] HospitalGlucose [Mass/Vol]311 mg/eJRwdp56-73MpsWbkaso [facility] HospitalGlucose [Mass/Vol]320 mg/dL Ujnu56-08LpmEckmem [facility] HospitalGlucose [Mass/Vol]332 mg/vXCxcb85-12JnoTkdnxb [facility] HospitalXR ABD NG TUBE PLACEMENT 1 VIEWon 65-64-3116RQ ABD NG TUBE PLACEMENT 1 VIEWNormalProMedica Rockwell HospitalXR CHEST 1 VWon 10-39-3572IX CHEST 1 VWNormalProMedica Rockwell HospitalBASIC METABOLIC PANLon 41-49-8830Zjrfa gap [Moles/Vol]11 mmol/LNormal5-15[facility] HospitalComment on above: Performed By: #### TI, BMP ####[facility] ([id number])[address], [place] [address]Tdvkjhb [Mass/Vol]9.7 mg/dLNormal8.5-10.5 [facility] HospitalComment on above:Performed By: #### TI, BMP ####[facility] ([id number])[address], [place] [address]Adesicii [Moles/Vol]107 mmol/XBxnsig62-025RorRfwepa [facility] HospitalComment on above:Performed By: #### TI BMP ####[facility] ([id number])[address], [place] [address]XH4 [Moles/Vol]25 mmol/L Strelj70-68RryDvqzfm [facility] HospitalComment on above:Performed By: #### TI, BMP ####[facility] ([id number])[address] [place], [place] [address]Yknfseyfrn [Mass/Vol]1.04 mg/dLNormal0.60-1.30ProTri[facility] Hospitalca [facility] HospitalComment on above:Result Comment: METHOD TRACEABLE TO IDMS STANDARD Performed By: #### TI BMP ####[facility] ([id number])[address] [place] [address]QNF/1.73 sq M.predicted among non-blacks MDRD (S/P/Bld) [Vol rate/Area]79 mL/min/{1.73_m2}Normal>59ProTrihealth [facility] Hospitalca [facility] HospitalComment on above:Result Comment: Reported eGFR is based on theCKD-EPI 2020 equation that doesnot use a race coefficient.Performed By: #### TI, BMP ####[facility] ([id number])[address] [place] [address]Unldkzk [Mass/Vol]382 mg/qFWvep76-26GceJmkjeu [place] HospitalComment on above:Performed By: #### TI, BMP ####[facility] ([id number])[address] [place] [address] 28981Bttnqbgfh [Moles/Vol]4.6 mmol/LNormal3.5-5.0Pro[facility] Hospitalca [facility] HospitalComment on above:Performed By: #### TI, BMP ####[facility] ([id number])[address] [address]Hoocre [Moles/Vol]143 mmol/YIhgvrr126-074QqiObxcqn [facility] HospitalComment on above:Performed By: #### CBCJenni, BMP ####[facility] ([id number])[address], [address] [place] [address]Zofr nitrogen [Mass/Vol]25 mg/dLNormal5-27[facility] HospitalComment on above:Performed By: #### CBCA, BMP ####[facility] ([id number])[address], [address] [place] [address] 204[address]BLT AND AUTO DIFFon 29-03-6428NNUJGGCD BASOPHIL0.1 X10E9/LNormal0.0-0.2[facility] HospitalComment on above:Performed By: #### CBCJenni, BMP ####[facility] ([id number])[address], [address] [place] [address] 82560WMXVQSJU NEUTROPHIL8.3 X10E9/LHigh1.5-6.6[facility] HospitalComment on above:Performed By: #### CBCJenni, BMP ####[facility] ([id number])[address], [address] [place] [address] 22100Clxyiqqfo/100 WBC (Bld)0.6 %NormalProMedica Rockwell HospitalComment on above:Performed By: #### CBCA, BMP ####[facility] ([id number])[address] [place] [address]Fgsusuycppo (Bld) [#/Vol]0.0 10*3/uLNormal0.0-0.4[facility] HospitalComment on above:Performed By: #### CBCA, BMP ####[facility] ([id number])[address], [address] [place] [address] 99819 Eosinophils/100 WBC (Bld)0.1 %NormalProMedica Rockwell HospitalComment on above: Performed By: #### CBCA, BMP ####[facility] ([id number])[address] [place] [address] 87687Bgkfveiixtp distribution width (RBC) [Ratio] 15.4 %High11.5-15.0[facility] HospitalComment on above:Performed By: #### CBCA, BMP ####[facility] ([id number])[address], [address] [place] [address] 75872Risuyhfusq (Bld) [Volume fraction]46.8 %Xhfefz74-25MjiFdzfnj [facility] HospitalComment on above:Performed By: #### CBCA, BMP ####[facility] ([id number])[address] [place] [address] 569[address]Lonedzumyc (Bld) [Mass/Vol]15.6 g/eMFpdjhn56.0-17.0[facility] HospitalComment on above:Performed By: #### CBCA, BMP ####[facility] ([id number])[address] [place] [address] 980[address]Ckgsjbgancg (Bld) [#/Vol] 1.2 10*3/uLNormal1.0-3.5[facility] HospitalComment on above:Performed By: #### CBCA, BMP ####[facility] ([id number])[address] [place] [address] 99102Gccowauxfvz/100 WBC (Bld)11.2 %NormalProMedica Rockwell HospitalComment on above:Performed By: #### CBCA, BMP ####[facility] ([id number])[address] [address] [place] [address] 880[address]UUB (RBC) [Entitic mass]30.6 fqJauayo50-86LxzHcsors [facility] HospitalComment on above: Performed By: #### CBCA, BMP ####[facility] ([id number])[address], [place] [address]RYDM (RBC) [Mass/Vol]33.2 g/pXEoelca57-07 [facility] HospitalComment on above:Performed By: #### CBCA, BMP ####[facility] ([id number])[address], [place] [address]XVR (RBC) [Entitic vol]92 sURpszua64-134UdpMhykva [facility] HospitalComment on above:Performed By: #### CBCA, BMP ####[facility] ([id number])[address], [place] [address]Vihtgljrt (Bld) [#/Vol]1.1 10*3/uLHigh0-0.9[facility] HospitalComment on above:Performed By: #### CBCA, BMP ####[facility] ([id number])[address], [place] [address]Vznqmxtxd/100 WBC (Bld)10.4 %NormalProTrihealth Bethesda Butler Hospitalca [facility] Comment on above:Performed By: #### CBCA, BMP ####[facility] ([id number])[address], [place] [address]Xhlyjaqlkbv/100 WBC (Bld) 77.7 %NormalProMedica Hayden HospitalComment on above:Performed By: #### CBCA, BMP ####[facility] ([id number])[address] [place], [place] [address]Jtxxbyra mean volume (Bld) [Entitic vol]8.6 fLNormal7-12[facility] HospitalComment on above:Performed By: #### CBCA, BMP ####[facility] ([id number])[address], [place] [address]Mknoxqnxa (Bld) [#/Vol]201 10*3/oDXetees792-272GgeMdnetl [facility] HospitalComment on above: Performed By: #### TK LUKE ####[facility] ([id number])[address], [address] [place] [address] 24619HWN COUNT5.09 X10E12/LNormal4.10-5.70 [facility] AdministrationComment on above:Performed By: #### TI, BMP ####[facility] ([id number])[address] [place] [address] 870[address]ONY (Bld) [#/Vol]10.7 10*3/uLNormal4.0-11.0Pro[facility] [place] Comment on above:Performed By: #### TI BMP ####[facility] ([id number])[address] [place] [address] 21264AF BRAIN WO CONTon 81-60-9474OT BRAIN WO CONTNormalProKindred Healthcare HospitalGlucose Glucometer (BldC) [Mass/Vol]on 47-78-7241Oeauvbg [Mass/Vol]320 mg/zMTcuk02-90CpmDccdzb [facility] HospitalGlucose [Mass/Vol]325 mg/pCQjox22-52AcjEpgxfh [facility] Glucose [Mass/Vol]209 mg/fHUkoj43-34YkuWexypd [facility] HospitalGlucose [Mass/Vol] 305 mg/dQRpqb15-24InyVxkryz [facility] HospitalXR ABD NG TUBE PLACEMENT 1 VIEWon 29-67-2033HZ ABD NG TUBE PLACEMENT 1 VIEWNormalProTrihealth [facility] Butler Hospitalca [facility] HospitalXR ABD NG TUBE PLACEMENT 1 [facility] CenterrmalAccess Hospital DaytonBASIC METABOLIC PANLon 11-49-9273Iimsz gap [Moles/Vol]10 mmol/LNormal5-15[facility] Comment on above:Performed By: #### TI, BMP ####[facility] ([id number])[address], [address] [place] [address] 51540Kyhaqzx [Mass/Vol]9.1 mg/dL Normal8.5-10.5Pro[facility] HospitalComment on above:Performed By: #### TI, BMP ####[facility] ([id number])[address], [address] [place], [place] [address]Qlqqwsfq [Moles/Vol]107 mmol/MZwdozv60-275MinFhdstf [facility] HospitalComment on above:Performed By: #### TI, BMP ####[facility] ([id number])[address], [address], [place] [address]AX3 [Moles/Vol] 25 mmol/YFptiyh59-78GbyLzuhal [place] HospitalComment on above:Performed By: #### TI, BMP ####[facility] ([id number])[address] [address], [place] [address]Tfpwqwoney [Mass/Vol]0.88 mg/dLNormal0.60-1.30ProKindred Healthcare HospitalComment on above:Result Comment: METHOD TRACEABLE TO IDMS STANDARDPerformed By: #### TI, BMP ####[facility] ([id number])[address] [address], [place] [address]bKDE (CKD-EPI) NON-RACE DEPENDENT>90Normal>59ProKindred Healthcare HospitalComment on above:Result Comment: Reported eGFR is based on theCKD-EPI 2020 equation that doesnot use a race coefficient.Performed By: #### TI, BMP ####[facility] ([id number])[address], [place] [address]Pqkuvtc [Mass/Vol]330 mg/dL Rseo44-28LlzGkdcmg [place] HospitalComment on above:Performed By: #### TI, BMP ####[facility] ([id number])[address], [place] [address]Dbxnuorid [Moles/Vol]4.4 mmol/LNormal3.5-5.0Pro[facility] Comment on above:Performed By: #### CBCJenni, BMP ####[facility] ([id number])[address], [address] [place] [address]37[address]Oeforr [Moles/Vol]142 mmol/QDhjvyl791-799VcqMwswqw [facility] HospitalComment on above:Performed By: #### CBCJenni, BMP ####[facility] ([id number])[address], [address] [place] [address]54[address]Diyz nitrogen [Mass/Vol]21 mg/dLNormal5-27ProKindred Healthcare HospitalComment on above:Performed By: #### TI, BMP ####[facility] ([id number])[address], [address] [place] [address] 47991UOQEJ CULTUREon 22-78-0440Njrjyecm identified Aer cx Nom (Bld)SPECIMEN NOTES SUBOPTIMAL VOLUME OF BLOOD COLLECTED, RESULTS MAY BE AFFECTED. CULTURE RESULTS NO GROWTH 5 DAYSNormalProTrihealth Bethesda Butler Hospitalca [facility]den HospitalComment on above:Performed By: #### [id number] ####[facility] ([id number])[address] [address] [place] [address]Iqvfmgdb identified Aer cx Nom (Bld)SPECIMEN NOTES SUBOPTIMAL VOLUME OF BLOOD COLLECTED, RESULTS MAY BE AFFECTED. CULTURE RESULTS NO GROWTH 5 DAYSNormalProTrihealth [facility] Butler Hospitalca [facility] HospitalComment on above:Performed By: #### [id number] ####[facility] ([id number])[address], [address] [place] [address]806NEX AND AUTO DIFFon 20-32-6655MIJABCKU BASOPHIL0.1 X10E9/L Normal0.0-0.2Pro[facility]ica Hayden HospitalComment on above:Performed By: #### CBCA, BMP ####[facility] ([id number])[address], [address] [facility], [place] [address]XSZJGCPD NEUTROPHIL7.7 X10E9/LHigh1.5-6.6[facility]ica Rockwell HospitalComment on above:Performed By: #### CBCA, BMP ####[facility] ([id number])[address], [address] [place] [address] 21874Eqitlalzi/100 WBC (Bld)0.6 %NormalProMedica Rockwell HospitalComment on above:Performed By: #### CBCA, BMP ####[facility] ([id number])[address], [address] [place] [address] 74243Cablddwqhwg (Bld) [#/Vol]0.0 10*3/uLNormal0.0-0.4ProMedica Rockwell HospitalComment on above:Performed By: #### CBCA, BMP ####[facility] ([id number])[address] [place] [address] Eosinophils/100 WBC (Bld)0.2 %NormalProMedica Rockwell HospitalComment on above: Performed By: #### CBCA, BMP ####[facility] ([id number])[address], [address] [place] [address] 04209Pmcvxcyvewt distribution width (RBC) [Ratio] 15.3 %High11.5-15.0ProMedica Rockwell HospitalComment on above:Performed By: #### CBCA, BMP ####[facility] ([id number])[address] [place] [address] 03606Hmndiiokob (Bld) [Volume fraction]43.3 %Pknjbs53-88JjeFnylno [facility] HospitalComment on above:Performed By: #### CBCA, BMP ####[facility] ([id number])[address] [place] [address] 46616Jorxqwdrjn (Bld) [Mass/Vol]14.8 g/mQDrvnqy60.0-17.0ProMedica Rockwell HospitalComment on above:Performed By: #### CBCA, BMP ####[facility] ([id number])[address], [address], [place] [address]Jsrrttnkfjb (Bld) [#/Vol] 1.0 10*3/uLNormal1.0-3.5ProMedica Rockwell HospitalComment on above:Performed By: #### CBCA, BMP ####[facility] ([id number])[address], [address], [place] [address]Uqueidxydqz/100 WBC (Bld)10.5 %NormalProMedica Rockwell HospitalComment on above:Performed By: #### CBCA, BMP ####[facility] ([id number])[address], [address] [place] [address] 01689RZX (RBC) [Entitic mass]31.1 qeQqrnax16-04IkiWnpdoa [facility] HospitalComment on above: Performed By: #### CBCA, BMP ####[facility] ([id number])[address], [address], [place] [address]YURU (RBC) [Mass/Vol]34.3 g/wOUhzopx20-03 [facility] HospitalComment on above:Performed By: #### CBCA, BMP ####[facility] ([id number])[address], [address], [place] [address]WUH (RBC) [Entitic vol]91 zUCojfjx45-613UonMjajgn [facility] HospitalComment on above:Performed By: #### CBCA, BMP ####[facility] ([id number])[address], [address] [place] [address] 40034Rksookxzq (Bld) [#/Vol]1.1 10*3/uLHigh0-0.9ProMedica Rockwell HospitalComment on above:Performed By: #### CBCA, BMP ####[facility] ([id number])[address], [address] [place] [address] 69201Amydpwbvc/100 WBC (Bld)11.1 %NormalProTrihealth Bethesda Butler Hospitalca [facility] Comment on above:Performed By: #### CBCJenni, BMP ####[facility] ([id number])[address], [address], [place] [address]Xrzbnwrbxnp/100 WBC (Bld) 77.6 %NormalProTrihealth Bethesda Butler Hospitalca [facility]den HospitalComment on above:Performed By: #### CBCJenni, BMP ####[facility] ([id number])[address], [address] [place], [place] [address]Hfovzsxu mean volume (Bld) [Entitic vol]8.5 fLNormal7-12ProMedica [facility]den HospitalComment on above:Performed By: #### CBCJenni, BMP ####[facility] ([id number])[address], [address] [place] [address] 65[address]Mrkfleojb (Bld) [#/Vol]180 10*3/dCTdceap587-314PzqSmsdcz [facility] HospitalComment on above: Performed By: #### CBCJenni, BMP ####[facility] ([id number])[address], [address] [place] [address] 928[address]DWQ COUNT4.77 X10E12/LNormal4.10-5.70 [facility]ica [facility] HospitalComment on above:Performed By: #### CBCA, BMP ####[facility] ([id number])[address], [address] [place] [address] 99369QSW (Bld) [#/Vol]9.9 10*3/uLNormal4.0-11.0ProMedica [facility] HospitalComment on above:Performed By: #### CBCA, BMP ####[facility] ([id number])[address], [address] [place] [address] 23445Vqsosze Glucometer (BldC) [Mass/Vol]on 56-87-6677Xogmimq [Mass/Vol]321 mg/uSQhor64-49EkvVflimg [facility] HospitalGlucose [Mass/Vol]331 mg/qBRvef28-54GuuXrcsug [facility] HospitalGlucose [Mass/Vol]313 mg/hNRpgr22-72MpiUpozat [facility] HospitalGlucose [Mass/Vol]302 mg/dL Xiwo61-45MtjWtlokz [facility] HospitalGlucose [Mass/Vol]343 mg/tWUloc43-17CsnDgmmbb [facility] HospitalLactate (P chauncey) [Moles/Vol]on 04-84-2984PPPWLCM W/REFLEX1.5 mmol/LNormal0.4-2.0ProKindred Healthcare HospitalComment on above:Result Comment: Result did not trigger repeat Lactate,re-order if needed.Performed By: #### 33251-7, 83952-6 ####[facility] ([id number])[address] [place] [address], [address] [place] [address]Fewtwdjmgnbed [place] [Mass/Vol]on 68-71-3923APXOZSJIMKIBS 0.14 ng/mLHigh<0.05Access Hospital DaytonComment on above:Result Comment: NOTE<0.50 ng/mL - Low risk of severe sepsis and/or septic shock.<2.00 ng/mL - Recommend retesting within 6-24 hours.>2.00 ng/mL - High risk of sepsis and/or septic shock.Performed By: #### 99750-3, 68950-3 ####[facility] ([id number])[address] [place] [address], [address] [place] [address] 27061XOYF PATHOGENS/UARG-MxK-3uz 59-01-1628Tcqpyatthzr pathogens DNA and RNA panel ELISSA+non-probe (Nph)NormalProSelect Medical Cleveland Clinic Rehabilitation Hospital, AvonComment on above:Performed By: #### 39296-8 ####[facility] ([id number])[address] [place] [address], [address] [place] [address] 33989HKQRWDFCGMag 68-44-7880Arhknbtak Ql (U)NegativeNormalNEG [facility] Health AdministrationComment on above:Performed By: #### UA ####[facility] ([id number])[address], [address] [address] BLOOD/HGBSmallAbnormalNEGProMedica Rockwell HospitalComment on above:Performed By: #### UA ####[facility] ([id number])[address], [address] [address]Aldsr (U)YELLOWNormalYELLOWProMedica Rockwell HospitalComment on above:Performed By: #### UA ####[facility] ([id number])[address], [address] [address]Mzoyhfm Ql (U)>1000AbnormalNEGProMedica Rockwell HospitalComment on above:Performed By: #### UA ####[facility] ([id number])[address], [address],[place] [address]Bxpbhzq Ql (U) NegativeNormalNEGProMedica Rockwell HospitalComment on above:Performed By: #### UA ####[facility] ([id number])[address], [address] [address]Hcwftczce esterase Test strip Ql (U)NegativeNormalNEGProMedica Rockwell HospitalComment on above:Result Comment: HIGH CONCENTRATIONS OF GLUCOSE MAY DECREASE THE REACTIVITY OF THE DIPSTICK LEUKOCYTE TEST PAD.Performed By: #### UA ####[facility] ([id number])[address], [address] [address]SUGJEGLXCQDFHHjupkrxaAOIJDrmQadlrj [facility] HospitalComment on above: Performed By: #### UA ####[facility] ([id number])[address], [address] [address]Gwjkxey Ql (U)NegativeNormalNEGProMedica Rockwell HospitalComment on above:Performed By: #### UA ####[facility] ([id number])[address] [address]oM (U)5.5 [pH] Normal5.0-8.5PSalem City Hospital HospitalComment on above:Performed By: #### UA ####[facility] ([id number])[address] [address]Ouccthd Ql (U)30 mg/dLAbnormalNEGProTrihealth Bethesda Butler Hospitalca [facility] HospitalComment on above: Performed By: #### UA ####[facility] ([id number])[address] [address]L.B.CELLS1 /hpfNormal0-5PSalem City Hospital HospitalComment on above:Performed By: #### UA ####[facility] ([id number])[address] [address]Wrcdzoic gravity (U) [Rel density]1.421Nckvca8.003-1.035ProKindred Healthcare HospitalComment on above: Performed By: #### UA ####[facility] ([id number])[address] [address]NRKRONNYTHTEYTUiaejcBESLATneVqsilp [place] HospitalComment on above:Performed By: #### UA ####[facility] ([id number])[address] [address]Cwzobawohk dipstick W Reflex Microscopic panel (U)URINE RECEIVED WITHOUT PRESERVATIVE-DELAYS IN TRANSPORT MAY AFFECT RESULTS.INTERPRET WITH CAUTION AND CLINICAL CORRELATION IS RECOMMENDED. NormalProKindred Healthcare HospitalComment on above:Performed By: #### UA ####[facility] ([id number])[address] [address] Urobilinogen (U) [Mass/Vol]mg/dLNormal<1.1PSalem City Hospital HospitalComment on above:Performed By: #### UA ####[facility] ([id number])[address], [address] [address]M.B.CELLS1 /hpfNormal0-5ProMedica [facility] HospitalComment on above:Performed By: #### UA ####[facility] ([id number])[address], [address] [address]JJ CHEST 1 VWon 14-72-9644WY CHEST 1 VWNormalProMedica Hayden HospitalBASIC METABOLIC PANLon 34-41-1794Rkthx gap [Moles/Vol]12 mmol/LNormal5-15[facility] HospitalComment on above: Performed By: #### TI, BMP ####[facility] ([id number])[address], [address], [place] [address]Dunrmyi [Mass/Vol]9.3 mg/dLNormal8.5-10.5 [facility] HospitalComment on above:Performed By: #### TI, BMP ####[facility] ([id number])[address], [address], [place] [address]Adcuimqx [Moles/Vol]106 mmol/EPisttc48-456RodOwjupu [facility] HospitalComment on above:Performed By: #### CBCJenni, BMP ####[facility] ([id number])[address], [address], [place] [address]TY0 [Moles/Vol]22 mmol/L Chahnx07-60VcfQtinet [facility] HospitalComment on above:Performed By: #### CBCJenni, BMP ####[facility] ([id number])[address], [address] [place], [place] [address]Unxumnnsjd [Mass/Vol]0.84 mg/dLNormal0.60-1.30Pro[facility] HospitalComment on above:Result Comment: METHOD TRACEABLE TO IDMS STANDARD Performed By: #### CBCJenni, BMP ####[facility] ([id number])[address], [place] [address]gSGN (CKD-EPI) NON-RACE DEPENDENT>90Normal >59ProKindred Healthcare HospitalComment on above:Result Comment: Reported eGFR is based on theCKD-EPI 2020 equation that doesnot use a race coefficient.Performed By: #### TI BMP ####[facility] ([id number])[address] [place] [address]Npmpalo [Mass/Vol]223 mg/xBChju96-97JlmHcaxuiSelect Medical Cleveland Clinic Rehabilitation Hospital, AvonComment on above:Performed By: #### TI BMP ####[facility] ([id number])[address] [address]Bvwzfdamh [Moles/Vol]4.0 mmol/LNormal3.5-5.0ProKindred Healthcare HospitalComment on above: Performed By: #### TI BMP ####[facility] ([id number])[address] [address]Dwdoll [Moles/Vol]140 mmol/FLrncdq334-752 ProMedicMcCullough-Hyde Memorial HospitalComment on above:Performed By: #### TI BMP ####[facility] ([id number])[address], [place] [address]Wqtx nitrogen [Mass/Vol]18 mg/dLNormal5-27ProSelect Medical Cleveland Clinic Rehabilitation Hospital, AvonComment on above:Performed By: #### TI, BMP ####[facility] ([id number])[address] [place] [address]XRS AND AUTO DIFFon 39-77-5702UWHSMMQJ BASOPHIL0.0 X10E9/LNormal0.0-0.2PMarietta Memorial Hospital Comment on above:Performed By: #### TI BMP ####[facility] ([id number])[address], [place] [address]FELPQJCE NEUTROPHIL8.2 X10E9/LHigh1.5-6.6ProKindred Healthcare HospitalComment on above:Performed By: #### CBCA, BMP ####[facility] ([id number])[address], [place] [address]Hddlzpshm/100 WBC (Bld)0.4 %NormalCorey Hospital Hospital Comment on above:Performed By: #### CBCA, BMP ####[facility] ([id number])[address], [place] [address]Uvgdjsnxtnw (Bld) [#/Vol] 0.0 10*3/uLNormal0.0-0.4ProKindred Healthcare HospitalComment on above:Performed By: #### CBCA, BMP ####[facility] ([id number])[address], [place] [address]Iisdscvrpgy/100 WBC (Bld)0.2 %NormalProKindred Healthcare HospitalComment on above:Performed By: #### CBCA, BMP ####[facility] ([id number])[address] [place] [address], [place] [address]Vlxesdklryl distribution width (RBC) [Ratio]15.3 %High11.5-15.0[facility] Comment on above:Performed By: #### CBCA, BMP ####[facility] ([id number])[address], [place] [address]Whlycukzsq (Bld) [Volume fraction]45.8 %Odguzf35-86OhcEvvkrh [facility] HospitalComment on above:Performed By: #### CBCA, BMP ####[facility] ([id number])[address], [place] [address]Afefqvxuku (Bld) [Mass/Vol]15.2 g/sGHcopgt63.0-17.0 [facility] HospitalComment on above:Performed By: #### CBCA, BMP ####[facility] ([id number])[address], [place] [address]Cddxkufjenq (Bld) [#/Vol]1.0 10*3/uLNormal1.0-3.5[facility] Comment on above:Performed By: #### CBCA, BMP ####[facility] ([id number])[address], [address], [place] [address]Jvqvulzmxdw/100 WBC (Bld) 10.1 %NormalProKindred Healthcare HospitalComment on above:Performed By: #### CBCA, BMP ####[facility] ([id number])[address], [address] [place], [place] [address]VJT (RBC) [Entitic mass]30.3 fcLfyonh80-32GybLpvtcz [place] HospitalComment on above:Performed By: #### CBCA, BMP ####[facility] ([id number])[address], [address], [place] [address]SVVF (RBC) [Mass/Vol]33.3 g/nSAynzml76-08NusUwcrkl [facility] HospitalComment on above: Performed By: #### CBCA, BMP ####[facility] ([id number])[address], [address], [place] [address]XVY (RBC) [Entitic vol]91 sSQgiwzb92-331 [facility] HospitalComment on above:Performed By: #### CBCA, BMP ####[facility] ([id number])[address], [address] [place] [address]Mmhjdmudu (Bld) [#/Vol]0.9 10*3/uLNormal0-0.9[facility] Comment on above:Performed By: #### CBCA, BMP ####[facility] ([id number])[address], [place] [address]Vcravzkqo/100 WBC (Bld)9.0 %NormalProMedica Rockwell HospitalComment on above:Performed By: #### CBCJenni, BMP ####[facility] ([id number])[address], [address], [place] [address]Nnjhnfyspyp/100 WBC (Bld)80.3 %NormalProMedica Rockwell HospitalComment on above:Performed By: #### CBCA, BMP ####[facility] ([id number])[address], [address], [place] [address]Kjcwxjju mean volume (Bld) [Entitic vol]8.6 fLNormal7-12Pro[facility] HospitalComment on above:Performed By: #### CBCA, BMP ####[facility] ([id number])[address], [address], [place] [address]Grxsypwxg (Bld) [#/Vol]184 10*3/sXHlgpdj606-833 [facility] HospitalComment on above:Performed By: #### CBCA, BMP ####[facility] ([id number])[address], [address], [place] [address]IEE COUNT5.03 X10E12/LNormal4.10-5.70[facility] HospitalComment on above:Performed By: #### CBCA, BMP ####[facility] ([id number])[address], [address], [place] [address]FCF (Bld) [#/Vol]10.3 10*3/uLNormal4.0-11.0[facility] HospitalComment on above:Performed By: #### CBCA, BMP ####[facility] ([id number])[address], [address], [place] [address]Dljmcci Glucometer (BldC) [Mass/Vol]on 06-10-2024 Glucose [Mass/Vol]267 mg/oLSwlf40-50HqtRtktnn [facility] HospitalGlucose [Mass/Vol] 252 mg/kPOxbo78-54BczTfwlpz [facility] HospitalGlucose [Mass/Vol]259 mg/zVSkpv80-94 [facility] HospitalGlucose [Mass/Vol]266 mg/oKJjuv68-30IfjWdtjyb [facility] HospitalBASIC METABOLIC PANLon 98-96-7068Aazfs gap [Moles/Vol]13 mmol/LNormal 5-15ProTrihealth [facility] Hospitalca [facility] HospitalComment on above:Performed By: #### TI, BMP ####[facility] ([id number])[address], [address], [place] [address]Olesjnw [Mass/Vol]9.2 mg/dLNormal8.5-10.5PSalem City Hospital HospitalComment on above:Performed By: #### TI, BMP ####[facility] ([id number])[address], [address], [place] [address]Mpfggaix [Moles/Vol]106 mmol/IPfxdzx35-053VszUeyepe [facility] HospitalComment on above:Performed By: #### TI, BMP ####[facility] ([id number])[address], [address], [place] [address]DX6 [Moles/Vol]23 mmol/WLiqjoo72-03XzkSofgvm [facility] Comment on above:Performed By: #### TI, BMP ####[facility] ([id number])[address], [address], [place] [address]Ubcrcsvshn [Mass/Vol]0.91 mg/dLNormal0.60-1.30Pro[facility] Healthcare HospitalComment on above:Result Comment: METHOD TRACEABLE TO IDMS STANDARDPerformed By: #### TI, BMP ####[facility] ([id number])[address], [address], [place] [address]vUUU (CKD-EPI) NON-RACE DEPENDENT>90Normal>59Pro[facility] Healthcare HospitalComment on above:Result Comment: Reported eGFR is based on theCKD-EPI 2020 equation that doesnot use a race coefficient.Performed By: #### TI BMP ####[facility] ([id number])[address], [address], [place] [address]Gsfwrzt [Mass/Vol]144 mg/lWQtnv33-63NtgBlzsdy [place] HospitalComment on above:Performed By: #### TI BMP ####[facility] ([id number])[address], [address] [place] [address]Gdoheykze [Moles/Vol]4.1 mmol/LNormal3.5-5.0Pro[facility] Healthcare HospitalComment on above:Performed By: #### TI BMP ####[facility] ([id number])[address], [address], [place] [address]Aipvaa [Moles/Vol]142 mmol/IIxzres214-972HvjOwclar [place] HospitalComment on above: Performed By: #### TI BMP ####[facility] ([id number])[address], [address] [place] [address], [place] [address]Wcil nitrogen [Mass/Vol]15 mg/dLNormal5-27 [facility]ation[facility] HospitalComment on above:Performed By: #### TI, BMP ####[facility] ([id number])[address], [address] [place] [address], [place] [address]XVZ AND AUTO DIFFon 08-19-7998CHKAMXSW BASOPHIL0.1 X10E9/LNormal0.0-0.2 [facility] HospitalComment on above:Performed By: #### TI, BMP ####[facility] ([id number])[address], [address] [place] [address], [place] [address]LTUHPVKB NEUTROPHIL7.6 X10E9/LHigh1.5-6.6ProTri[facility] Hospitalca [facility] HospitalComment on above:Performed By: #### CBCA, BMP ####[facility] ([id number])[address], [address], [place] [address]Qoxtqkfby/100 WBC (Bld)0.6 %NormalProTrihealth Bethesda Butler Hospitalca [facility] HospitalComment on above:Performed By: #### CBCA, BMP ####[facility] ([id number])[address], [address] [place] [address]Ymfdsupulyr (Bld) [#/Vol]0.1 10*3/uLNormal0.0-0.4[facility] Comment on above:Performed By: #### CBCA, BMP ####[facility] ([id number])[address], [place] [address]Maokygsugti/100 WBC (Bld) 0.5 %NormalProKindred Healthcare HospitalComment on above:Performed By: #### CBCA, BMP ####[facility] ([id number])[address], [place] [address]Ttpwdjpuqek distribution width (RBC) [Ratio]15.0 %Imwwub08.5-15.0 [facility] HospitalComment on above:Performed By: #### CBCA, BMP ####[facility] ([id number])[address] [place] [address]Slyeqyqequ (Bld) [Volume fraction]44.4 %Xjxrne42-51WrlYyyffg [facility] HospitalComment on above:Performed By: #### CBCA, BMP ####[facility] ([id number])[address] [place] [address]Czbaiqzkee (Bld) [Mass/Vol]15.0 g/dPCqfgyq88.0-17.0Pro[facility] Hospitalca [facility] HospitalComment on above: Performed By: #### CBCA, BMP ####[facility] ([id number])[address], [place] [address]Skjskbxtiav (Bld) [#/Vol]1.6 10*3/uLNormal 1.0-3.5[facility] HospitalComment on above:Performed By: #### CBCA, BMP ####[facility] ([id number])[address], [address], [place] [address]Tictnegnxud/100 WBC (Bld)15.2 %NormalProMedica Rockwell HospitalComment on above:Performed By: #### CBCA, BMP ####[facility] ([id number])[address], [address] [place] [address] 62929MFE (RBC) [Entitic mass] 30.5 unWmjhrz53-38CigWiknkx [facility] HospitalComment on above:Performed By: #### CBCA, BMP ####[facility] ([id number])[address], [address], [place] [address]SARI (RBC) [Mass/Vol]33.8 g/bBDycvpx99-90GzuEbjuhe [facility] HospitalComment on above:Performed By: #### CBCA, BMP ####[facility] ([id number])[address], [address], [place] [address]YVM (RBC) [Entitic vol]90 bXTxdfcl25-936HddPlmsvf [facility] HospitalComment on above: Performed By: #### CBCA, BMP ####[facility] ([id number])[address], [address] [place] [address]951Gaaacpmnr (Bld) [#/Vol]1.0 10*3/uLHigh0-0.9 [facility] HospitalComment on above:Performed By: #### CBCA, BMP ####[facility] ([id number])[address], [address], [place] [address]Smdeffjkv/100 WBC (Bld)9.6 %NormalProMedica Rockwell HospitalComment on above:Performed By: #### CBCJenni, BMP ####[facility] ([id number])[address], [address], [place] [address]Kwnixjiferl/100 WBC (Bld) 74.1 %NormalProMedica Rockwell HospitalComment on above:Performed By: #### CBCJenni, BMP ####[facility] ([id number])[address], [address] [facility], [place] [address]Fyyuycol mean volume (Bld) [Entitic vol]8.2 fLNormal7-12[facility] HospitalComment on above:Performed By: #### CBCJenni, BMP ####[facility] ([id number])[address], [address], [place] [address]Cedhgdxcu (Bld) [#/Vol]171 10*3/zSUexxwi654-231GbgQodsnc [facility] HospitalComment on above: Performed By: #### CBCJenni, BMP ####[facility] ([id number])[address], [address] [place] [address]NRK COUNT4.92 X10E12/LNormal4.10-5.70 [facility] HospitalComment on above:Performed By: #### CBCJenni, BMP ####[facility] ([id number])[address], [address] [place] [address] 89291QDV (Bld) [#/Vol]10.3 10*3/uLNormal4.0-11.0[facility] Comment on above:Performed By: #### CBCJenni, BMP ####[facility] ([id number])[address], [address] [place] [address]Hzaahgb Glucometer (BldC) [Mass/Vol]on 80-12-9818Lidjdef [Mass/Vol]168 mg/nORgki57-64UusNwovfx [facility] HospitalGlucose [Mass/Vol]152 mg/qRHbpw82-74AlpTxlljm [facility] HospitalGlucose [Mass/Vol]136 mg/yOVlgr50-22ZjwGeejwq [facility] HospitalGlucose [Mass/Vol]152 mg/dL Wzvu48-71FeoIhijpo [facility] HospitalLaboratory comment Sadi (Report)on 06-09-2024 UNLISTED LAB TESTSent to reference labNormalProMedica Rockwell HospitalComment on above:Result Comment: BY RESEARCHMagnesium Ionized ISE (Bld) [Moles/Vol]on 85-75-3329Kknlyseqc [Moles/Vol]0.57 mmol/LNormal0.45-0.74[facility]well HospitalComment on above:Result Comment: NEW REFERENCE RANGEPerformed By: #### [id number] ####[facility] ([id number])[address], [address] [place] [address]TZWRBPZGNYpd 78-52-1478Jkbdfbxbx [Mass/Vol]2.2 mg/dLLow 2.4-4.9[facility]well HospitalComment on above:Performed By: #### 2777-1 ####[facility] ([id number])[address], [address] [place] [address] 19378OC ABD NG TUBE PLACEMENT 1 VIEWon 95-24-8040GP ABD NG TUBE PLACEMENT 1 VIEWNormalProTrihealth Bethesda Butler Hospitalca Rockwell HospitalBASIC METABOLIC PANLon 78-68-3918Mvfnr gap [Moles/Vol]11 mmol/LNormal5-15ProMedica [facility]well HospitalComment on above: Performed By: #### CBCA, BMP ####[facility] ([id number])[address], [address] [place] [address] 88012Moyngkl [Mass/Vol]8.9 mg/dLNormal8.5-10.5 [facility]well HospitalComment on above:Performed By: #### CBCA, BMP ####[facility] ([id number])[address], [place] [address]Xigjwqxq [Moles/Vol]106 mmol/LKycxbt69-086YomDigrwn [facility] HospitalComment on above:Performed By: #### TI, BMP ####[facility] ([id number])[address], [place] [address]UP6 [Moles/Vol]24 mmol/L Tzlgwk49-15JelAijwuu [facility] HospitalComment on above:Performed By: #### TI, BMP ####[facility] ([id number])[address] [facility], [place] [address]Bhgtvxdhgi [Mass/Vol]0.89 mg/dLNormal0.60-1.30ProMedica [facility]well HospitalComment on above:Result Comment: METHOD TRACEABLE TO IDMS STANDARD Performed By: #### TI, BMP ####[facility] ([id number])[address], [place] [address]aQCW (CKD-EPI) NON-RACE DEPENDENT>90Normal >59ProMedica Rockwell HospitalComment on above:Result Comment: Reported eGFR is based on theCKD-EPI 2020 equation that doesnot use a race coefficient.Performed By: #### TI, BMP ####[facility] ([id number])[address], [place] [address]Wxgpred [Mass/Vol]149 mg/jDLjcq14-86KehLsoxzj [facility] HospitalComment on above:Performed By: #### TI, BMP ####[facility] ([id number])[address] [address]Vzlcecgnq [Moles/Vol]3.8 mmol/LNormal3.5-5.0Pro[facility]ica [facility] HospitalComment on above: Performed By: #### TI, BMP ####[facility] ([id number])[address], [place] [address]Wwdmyf [Moles/Vol]141 mmol/UZlqjky534-353 [facility] HospitalComment on above:Performed By: #### CBCJenni, BMP ####[facility] ([id number])[address], [place] [address]Useu nitrogen [Mass/Vol]12 mg/dLNormal5-27Pro[facility] HospitalComment on above:Performed By: #### CBCJenni, BMP ####[facility] ([id number])[address], [address] [place] [address] 564[address]AEF AND AUTO DIFFon 41-26-5105KOXPBQTW BASOPHIL0.0 X10E9/LNormal0.0-0.2PNorth Oaks Medical Centerica [facility] Comment on above:Performed By: #### CBCJenni, BMP ####[facility] ([id number])[address], [address] [place] [address]JJNQQCWJ NEUTROPHIL7.5 X10E9/LHigh1.5-6.6ProKindred Healthcare HospitalComment on above:Performed By: #### CBCJenni, BMP ####[facility] ([id number])[address], [address] [place] [address] 879[address]Evfjygnuh/100 WBC (Bld)0.4 %NormalAccess Hospital Dayton Comment on above:Performed By: #### CBCJenni, BMP ####[facility] ([id number])[address], [address] [place] [address] 34862Htooffzldmi (Bld) [#/Vol] 0.0 10*3/uLNormal0.0-0.4ProKindred Healthcare HospitalComment on above:Performed By: #### CBCA, BMP ####[facility] ([id number])[address], [address], [place] [address]Hjirjfjgcuk/100 WBC (Bld)0.2 %NormalProKindred Healthcare HospitalComment on above:Performed By: #### CBCA, BMP ####[facility] ([id number])[address], [place] [address]Qqhbicoopfw distribution width (RBC) [Ratio]15.0 %Lgfivs70.5-15.0[facility] Comment on above:Performed By: #### CBCA, BMP ####[facility] ([id number])[address], [place] [address]Jbfttnexhr (Bld) [Volume fraction]43.5 %Ckaunm92-89QcdRgojdf [place] HospitalComment on above:Performed By: #### CBCA, BMP ####[facility] ([id number])[address], [place] [address]Ebhlxpiail (Bld) [Mass/Vol]14.9 g/nOWgwsjg25.0-17.0 [facility] HospitalComment on above:Performed By: #### CBCA, BMP ####[facility] ([id number])[address], [place] [address]Yvvclaftxad (Bld) [#/Vol]1.6 10*3/uLNormal1.0-3.5PNorth Oaks Medical Centerica [facility] Comment on above:Performed By: #### CBCA, BMP ####[facility] ([id number])[address], [place] [address]Cwajimybriq/100 WBC (Bld) 15.9 %NormalProKindred Healthcare HospitalComment on above:Performed By: #### CBCA, BMP ####[facility] ([id number])[address] [facility], [place] [address]JFP (RBC) [Entitic mass]30.9 fxYgrmiu77-93KeeVvxahi [place] HospitalComment on above:Performed By: #### CBCA, BMP ####[facility] ([id number])[address], [address] [place] [address] 463[address]ZAZN (RBC) [Mass/Vol]34.2 g/eVInwdek39-38TkvTmfgdc [facility] HospitalComment on above: Performed By: #### CBCA, BMP ####[facility] ([id number])[address], [address], [place] [address]EPC (RBC) [Entitic vol]90 jTAmijog30-017 [facility] HospitalComment on above:Performed By: #### CBCA, BMP ####[facility] ([id number])[address], [address] [place] [address] 28461Ooqlzyinm (Bld) [#/Vol]1.0 10*3/uLHigh0-0.9Pro[facility] HospitalComment on above:Performed By: #### CBCA, BMP ####[facility] ([id number])[address], [place] [address]Dfypphfsv/100 WBC (Bld)9.9 %NormalProMedica Rockwell HospitalComment on above:Performed By: #### CBCA, BMP ####[facility] ([id number])[address], [address], [place] [address]Amexfaspaps/100 WBC (Bld)73.6 %NormalProMedica Rockwell HospitalComment on above:Performed By: #### CBCA, BMP ####[facility] ([id number])[address], [address] [place] [address]Nfxnownd mean volume (Bld) [Entitic vol]8.4 fLNormal7-12Pro[facility] HospitalComment on above:Performed By: #### CBCA, BMP ####[facility] ([id number])[address], [address], [place] [address]Pajxbvnnk (Bld) [#/Vol]176 10*3/qBZphdhr392-102 ProMveterans affairs medical center-tuscaloosaa [facility]well HospitalComment on above:Performed By: #### TI, TK ####[facility] ([id number])[address], [address] [place] [address] 12[address]YRE COUNT4.82 X10E12/LNormal4.10-5.70[facility] HospitalComment on above:Performed By: #### CBCJenni, BMP ####[facility] ([id number])[address] [facility], [address] [place] [address] 40[address]AYA (Bld) [#/Vol]10.3 10*3/uLNormal4.0-11.0ProTrihealth [facility] Butler Hospitalca [facility]den HospitalComment on above:Performed By: #### CBCJenni, BMP ####[facility] ([id number])[address], [address] [place] [address]Gykkund Glucometer (BldC) [Mass/Vol]on 06-08-2024 Glucose [Mass/Vol]138 mg/xGUnfd24-92FctRaeaxb [facility] HospitalGlucose [Mass/Vol] 140 mg/nGWsbd71-92GmqVxqyzj [facility] HospitalGlucose [Mass/Vol]129 mg/cWEcqe44-91 [facility] HospitalGlucose [Mass/Vol]151 mg/fTEuvf31-33QpfTngmjf [facility] HospitalLaboratory comment Sadi (Report)on 01-26-4437TPKQBQKY LAB TESTSent to reference labNormalProTrihealth Bethesda Butler Hospitalca [facility]den HospitalComment on above:Result Comment: BY RESEARCHPOTASSIUMon 69-02-4815Wznyymjjj [Moles/Vol]4.2 mmol/LNormal3.5-5.0 [facility]a [facility] HospitalComment on above:Performed By: #### 2823-3 ####[facility] ([id number])[address], [address] [place] [address] 095[address]FBSIG METABOLIC PANLon 75-85-1404Dyfgj gap [Moles/Vol]12 mmol/LNormal5-15ProKindred Healthcare HospitalComment on above:Performed By: #### TK LUKE, 07287-7 ####[facility] ([id number])[address] [address] Calcium [Mass/Vol]9.2 mg/dLNormal8.5-10.5PSalem City Hospital HospitalComment on above:Performed By: #### TK LUKE, 05263-4 ####[facility] ([id number])[address], [place] [address]Ygqbxsaj [Moles/Vol]103 mmol/DFtxejl74-172NxcNgxjtp [place] HospitalComment on above:Performed By: #### TK LUKE, 84369-7 ####[facility] ([id number])[address], [place] [address]UY2 [Moles/Vol]24 mmol/PXysjzp32-55BjqYksojl [place] HospitalComment on above:Performed By: #### TK LUKE, 60233-1 ####[facility] ([id number])[address] [address] Creatinine [Mass/Vol]0.89 mg/dLNormal0.60-1.30ProKindred Healthcare HospitalComment on above:Result Comment: METHOD TRACEABLE TO IDAK STANDARDPerformed By: #### TK LUKE, 39907-4 ####[facility] ([id number])[address], [place] [address]pGWF (CKD-EPI) NON-RACE DEPENDENT>90Normal>59ProKindred Healthcare HospitalComment on above:Result Comment: Reported eGFR is based on theCKD-EPI 2020 equation that doesnot use a race coefficient.Performed By: #### TK LUKE, 50571-2 ####[facility] ([id number])[address] [address], [place] [address]Jepilfl [Mass/Vol]179 mg/pXLukd61-03OcpLqajlz [facility] HospitalComment on above:Performed By: #### TK LUKE, 69931-0 ####[facility] ([id number])[address], [place] [address] Potassium [Moles/Vol]3.7 mmol/LNormal3.5-5.0ProTrihealth [facility] Hospitalca [facility]den HospitalComment on above:Performed By: #### KT LUKE, 39131-7 ####[facility] ([id number])[address], [place] [address]Twzqfg [Moles/Vol]139 mmol/HIdxxpc845-824PngPrgwxp [facility] HospitalComment on above:Performed By: #### TK LUKE, 30576-1 ####[facility] ([id number])[address], [address], [place] [address]Xsso nitrogen [Mass/Vol]10 mg/dLNormal5-27ProKindred Healthcare HospitalComment on above:Performed By: #### TK LUKE, 29568-1 ####[facility] ([id number])[address], [address] [place] [address] 56786INF AND AUTO DIFFon 52-46-6152YMUFEOVG BASOPHIL0.1 X10E9/LNormal0.0-0.2[facility] HospitalComment on above:Performed By: #### TK LUKE, 39100-7 ####[facility] ([id number])[address] [address] ABSOLUTE NEUTROPHIL8.6 X10E9/LHigh1.5-6.6ProTri[facility] Hospitalca [facility] HospitalComment on above:Performed By: #### TK LUKE, 21854-4 ####[facility] ([id number])[address], [address], [place] [address]Cqkhnxkkv/100 WBC (Bld)1.1 %NormalProTrihealth Bethesda Butler Hospitalca [facility]den HospitalComment on above:Performed By: #### TK LUKE, 24470-2 ####[facility] ([id number])[address], [address] [place] [address] 38851Gnytflnccnf (Bld) [#/Vol]0.0 10*3/uLNormal0.0-0.4ProTri[facility] Hospitalca [facility] HospitalComment on above:Performed By: #### TK LUKE, 63030-5 ####[facility] ([id number])[address], [place] [address] Eosinophils/100 WBC (Bld)0.1 %NormalProKindred Healthcare HospitalComment on above: Performed By: #### TK LUKE, 93069-3 ####[facility] ([id number])[address] [place] [address] 459[address]Hglirqslyyg distribution width (RBC) [Ratio]15.3 %High11.5-15.0ProTrihealth [facility] Hospitalca [facility] HospitalComment on above: Performed By: #### TK LUKE, 73999-0 ####[facility] ([id number])[address] [place] [address]Dslonibxgz (Bld) [Volume fraction]46.2 %Irlryw34-42QutQriaog [place] HospitalComment on above:Performed By: #### TK LUKE, 30130-0 ####[facility] ([id number])[address], [place] [address]Eivcetfelk (Bld) [Mass/Vol]16.0 g/dLNormal 13.0-17.0ProKindred Healthcare HospitalComment on above:Performed By: #### TK LUKE, 97398-7 ####[facility] ([id number])[address], [place] [address]Eebvffpyjyu (Bld) [#/Vol]1.0 10*3/uLNormal1.0-3.5Pro[facility] HospitalComment on above:Performed By: #### TK LUKE, 18916-5 ####[facility] ([id number])[address], [place] [address] Lymphocytes/100 WBC (Bld)9.7 %NormalProKindred Healthcare HospitalComment on above: Performed By: #### TK LUKE, 07385-7 ####[facility] ([id number])[address], [place] [address]SRU (RBC) [Entitic mass] 30.9 qyLwifyo73-11KnmNsqflq [place] HospitalComment on above:Performed By: #### TK LUKE, 87064-3 ####[facility] ([id number])[address], [place] [address]MDYF (RBC) [Mass/Vol]34.6 g/nLHpbzad01-85SejSzgmbv [place] HospitalComment on above:Performed By: #### TK LUKE, 43042-7 ####[facility] ([id number])[address], [place] [address]QHF (RBC) [Entitic vol]89 tIAhhduw31-378MnjXlvevd [place] HospitalComment on above: Performed By: #### TK LUKE, 35354-4 ####[facility] ([id number])[address], [place] [address]Ycofsyjxa (Bld) [#/Vol]0.6 10*3/uLNormal0-0.9ProKindred Healthcare HospitalComment on above:Performed By: #### TK LUKE, 61623-4 ####[facility] ([id number])[address], [place] [address]Szedstwfy/100 WBC (Bld)6.2 %NormalProMedica Rockwell HospitalComment on above:Performed By: #### TK LUKE, 00598-6 ####[facility] ([id number])[address], [address] [place] [address] Neutrophils/100 WBC (Bld)82.9 %NormalProMedica Rockwell HospitalComment on above: Performed By: #### TK LUKE, 05690-4 ####[facility] ([id number])[address], [address] [place] [address] 43503Ruqhadld mean volume (Bld) [Entitic vol]8.4 fLNormal7-12Pro[facility] HospitalComment on above:Performed By: #### TK LUKE, 93758-9 ####[facility] ([id number])[address], [address] [place] [address] 519[address]Vvfopfaif (Bld) [#/Vol]187 10*3/uLNormal 150-450ProMedica [facility] HospitalComment on above:Performed By: #### TK LUKE, 17680-7 ####[facility] ([id number])[address], [address] [place] [address] 777[address]JIO COUNT5.18 X10E12/LNormal4.10-5.70Pro[facility]ica [facility] HospitalComment on above:Performed By: #### TK LUKE, 30677-9 ####[facility] ([id number])[address] [place] [address]PMU (Bld) [#/Vol]10.3 10*3/uLNormal4.0-11.0Pro[facility]ica [facility] HospitalComment on above:Performed By: #### TK LUKE, 91603-9 ####[facility] ([id number])[address], [address] [place] [address]Qwxkzys Glucometer (BldC) [Mass/Vol]on 71-12-2825Yrlrgjb [Mass/Vol]110 mg/iNFiuy89-84CtoCivzfd [facility] HospitalGlucose [Mass/Vol]127 mg/sNIxco06-47CmaTyaxfv [place] HospitalGlucose [Mass/Vol]152 mg/wPZqdy43-39KufAoarouSelect Medical Cleveland Clinic Rehabilitation Hospital, AvonLaboratory comment Sadi (Report)on 91-24-5448VBOKSXAL LAB TESTSent to reference labNormalAccess Hospital DaytonComment on above:Result Comment: BY RESEARCHLipid 1996 panelon 83-83-7925Bwlfzusntkw [Mass/Vol]195 mg/eAFeveke284-102IozQadlwnAccess Hospital Dayton Comment on above:Performed By: ###TK LAURA, 13710-5 ####[facility] ([id number])[address], [place] [address]Xlqbpdxvvsw in HDL [Mass/Vol]43 mg/dLNormal>39Access Hospital DaytonComment on above:Result Comment: HDL <40 mg/dL - High RiskHDL > or = 40mg/dL- DesirableHDL >60 mg/dL - Negative Risk Performed By: ###TK LAURA, 00920-4 ####[facility] ([id number])[address], [place] [address]Emrdxggvbrc in LDL [Mass/Vol]120 mg/dLNormal<130 Access Hospital DaytonComment on above:Result Comment: LDL <100 mg/dL - DesirableLDL >160 mg/dL - High Risk Performed By: #### TK LUKE, 08412-1 ####[facility] ([id number])[address], [place] [address]Eynjttlnhkq in VLDL [Mass/Vol]32 mg/dLHigh0-30Pro[facility] HospitalComment on above:Performed By: #### TK LUKE, 06570-4 ####[facility] ([id number])[address], [place] [address]EFPRFGBOGED:HDL4.5Thoyoa2.0-5.0ProMedica [facility] HospitalComment on above:Performed By: #### TK LUKE, 28507-7 ####[facility] ([id number])[address] [address] Triglyceride [Mass/Vol]162 mg/uCTclx75-043MixRhnzuh [facility] HospitalComment on above:Performed By: #### TK LUKE, 14171-7 ####[facility] ([id number])[address], [place] [address]TW BRAIN WO CONTon 27-39-8699IY BRAIN WO CONTNormalProMedica Rockwell HospitalPROTIME AND INRon 55-62-2968LWW Coag (PPP) [Relative time]1.1 {INR}Normal0.8-1.1ProMedOhio State Health System HospitalComment on above:Performed By: #### AXEL, 08730-7 ####[facility] ([id number])[address], [place], [place] [address]FY Coag (PPP) [Time]12.4 sNormal9.8-13.2ProMedOhio State Health System HospitalComment on above:Performed By: #### AXEL, 12697-4 ####[facility] ([id number])[address], [place], [place] [address]xQIK Coag (PPP) [Time]on 97-01-3117zVDZ Coag (Bld) [Time]31 aYyvsbd89-19CvkZsbiwd [facility] HospitalComment on above:Performed By: #### PINR, 54679-9 ####[facility] ([id number])[address] [facility], [place], [place] [address]MXGMV METABOLIC PANLon 58-83-0385Vqbnc gap [Moles/Vol]8 mmol/LNormal5-15ProVal Verde Regional Medical CenterComment on above: Performed By: #### CBCA, BMP, LIVR, 57550-2, 78569-6, 5643-2 #### [facility] ([id number]) [address] [place] [address] 677[address]Qdfcegh [Mass/Vol]8.3 mg/dLLow8.5-10.5PKindred Hospital LimaComment on above:Performed By: #### CBCA, BMP, LIVR, 54221-8, 75729-5, 5643-2 #### [facility] ([id number]) [address] [place] [address] 02391Yakmytoj [Moles/Vol]102 mmol/YLjdmre31-887OllYdvavbVal Verde Regional Medical CenterComment on above:Performed By: #### CBCA, BMP, LIVR, 55519-1, 73659-0, 5643-2 #### [facility] ([id number]) [address] [place] [address]RB3 [Moles/Vol]22 mmol/XVczpzt91-14TomFylziyKindred Hospital Lima Comment on above:Performed By: #### CBCA, BMP, LIVR, 61168-7, 62138-5, 5643-2 #### [facility] ([id number]) [address] [place] [address] 588[address]Cpmqvvzcnw [Mass/Vol]0.89 mg/dLNormal0.70-1.20ProVal Verde Regional Medical CenterComment on above:Result Comment: METHOD TRACEABLE TO IDMS STANDARD Performed By: #### CBCA, BMP, LIVR, 96493-4, 52702-4, 5643-2 #### [facility] ([id number]) [address] [place] [address] 98946qICY (CKD-EPI) NON-RACE DEPENDENT>90Normal>59ProVal Verde Regional Medical CenterComment on above:Result Comment: Reported eGFR is based on the CKD-EPI 2021 equation that does not use a race coefficient.Performed By: #### CBCA, BMP, LIVR, 19735-6, 44395-0, 5643-2 #### [facility] ([id number]) [address] [place] [address] 610[address]Ghghkiy [Mass/Vol]237 mg/vLFoan79-20PziPrefptThe [facility] Comment on above:Performed By: #### CBCA, BMP, LIVR, 02401-1, 36320-1, 5643-2 #### [facility] ([id number]) [address] [place] [address] 91814Cdujptnzr [Moles/Vol]4.1 mmol/LNormal3.5-5.0ProVal Verde Regional Medical CenterComment on above:Performed By: #### CBCA, BMP, LIVR, 68378-5, 38666-3, 5643-2 #### [facility] ([id number]) [address] [place] [address] 524[address]Ppkkrd [Moles/Vol]132 mmol/CHtl883-327DadCsdhcdVal Verde Regional Medical CenterComment on above:Performed By: #### CBCA, BMP, LIVR, 88399-2, 57293-9, 5643-2 #### [facility] ([id number]) [address] [place] [address] 385[address]Vjui nitrogen [Mass/Vol]14 mg/dLNormal5-27ProVal Verde Regional Medical CenterComment on above:Performed By: #### CBCA, BMP, LIVR, 72240-4, 24597-8, 5643-2 #### [facility] ([id number]) [address] [place] [address], [place] [address]ALJ AND AUTO DIFFon 08-87-5531OOUXTVKE BASOPHIL0.0 X10E9/L Normal0.0-0.2PKindred Hospital LimaComment on above:Performed By: #### CBCA, BMP, LIVR, 26794-3, 52892-6, 5643-2 #### [facility] ([id number]) [address] [place] [address] 14389JXMWEAXT NEUTROPHIL6.5 X10E9/LNormal1.5-6.6ProVal Verde Regional Medical CenterComment on above:Performed By: #### CBCA, BMP, LIVR, 33305-7, 80608-6, 5643-2 #### [facility] ([id number]) [address] [place] [address] 00296Djobvokln/100 WBC (Bld)0.4 %[facility] Comment on above:Performed By: #### CBCA, BMP, LIVR, 43487-4, 70035-2, 5643-2 #### [facility] ([id number]) [address] [place] [address] 80230Mbxpptijoxw (Bld) [#/Vol]0.0 10*3/uLNormal0.0-0.4The MetroHealth SystemComment on above:Performed By: #### CBCA, BMP, LIVR, 45204-4, 52103-5, 5643-2 #### [facility] ([id number]) [address] [place] [address] 59745Hhztzgsviwh/100 WBC (Bld)0.1 %[facility] Comment on above:Performed By: #### CBCA, BMP, LIVR, 95230-9, 11928-1, 5643-2 #### [facility] ([id number]) [address] [place] [address], [place] [address]Kwxnhjstqqn distribution width (RBC) [Ratio]14.6 %Normal 11.5-15.0The MetroHealth SystemComment on above:Performed By: #### CBCA, BMP, LIVR, 24273-2, 47600-8, 5643-2 #### [facility] ([id number]) [address] [place] [address] 94633Agizilpypy (Bld) [Volume fraction]43.9 %Aymnhs60-66NqhQlpqzvVal Verde Regional Medical CenterComment on above:Performed By: #### CBCA, BMP, LIVR, 98778-5, 81421-6, 5643-2 #### [facility] ([id number]) [address] [place] [address] 35229Vnkvhlkgfu (Bld) [Mass/Vol]14.7 g/zXSngirt46.0-17.0ProVal Verde Regional Medical CenterComment on above:Performed By: #### CBCA, BMP, LIVR, 41797-0, 98126-2, 5643-2 #### [facility] ([id number]) [address] [place] [address] 08387Ngpihbremtc (Bld) [#/Vol]0.6 10*3/uLLow1.0-3.5PKindred Hospital LimaComment on above:Performed By: #### CBCA, BMP, LIVR, 48037-8, 99139-2, 5643-2 #### [facility] ([id number]) [address] [place] [address] 11234Avpixbkevut/100 WBC (Bld)7.8 %NormalProVal Verde Regional Medical Center Comment on above:Performed By: #### CBCA, BMP, LIVR, 57218-1, 25762-4, 5643-2 #### [facility] ([id number]) [address] [place] [address] 02300FEM (RBC) [Entitic mass]30.1 iuJwwnxt07-33BiuScwlabThe MetroHealth SystemComment on above:Performed By: #### CBCA, BMP, LIVR, 93150-8, 90792-6, 5643-2 #### [facility] ([id number]) [address] [place] [address] 19844QDTO (RBC) [Mass/Vol]33.6 g/oPVayeyo61-54FufLdasktVal Verde Regional Medical CenterComment on above:Performed By: #### CBCA, BMP, LIVR, 01554-9, 43005-8, 5643-2 #### [facility] ([id number]) [address] [place] [address] 21033FGY (RBC) [Entitic vol]90 qPPduluc30-755XifEsvjytThe MetroHealth SystemComment on above:Performed By: #### CBCA, BMP, LIVR, 29941-9, 27347-5, 5643-2 #### [facility] ([id number]) [address] [place] [address] 17908Ooqafiadd (Bld) [#/Vol]0.3 10*3/uLNormal0-0.9The MetroHealth SystemComment on above:Performed By: #### CBCA, BMP, LIVR, 42327-0, 38732-3, 5643-2 #### [facility] ([id number]) [address] [place] [address] 94958Uhhbhauvm/100 WBC (Bld)3.6 %NormalThe [facility] Comment on above:Performed By: #### CBCA, BMP, LIVR, 83623-0, 87657-9, 5643-2 #### [facility] ([id number]) [address] [place] [address] 64754Vjzchzovcjd/100 WBC (Bld)88.1 %NormalThe [facility] Comment on above:Performed By: #### CBCA, BMP, LIVR, 66544-6, 17346-0, 5643-2 #### [facility] ([id number]) [address] [place] [address] 68268Cjfgleue mean volume (Bld) [Entitic vol]8.5 fLNormal7-12 The MetroHealth SystemComment on above:Performed By: #### CBCA, BMP, LIVR, 40677-3, 22729-2, 5643-2 #### [facility] ([id number]) [address] [place] [address] 51849Sbebswlde (Bld) [#/Vol]175 10*3/sDTfsqqd859-336YmhDyhumzThe MetroHealth SystemComment on above:Performed By: #### CBCA, BMP, LIVR, 70605-8, 05521-9, 5643-2 #### [facility] ([id number]) [address] [place] [address] 41048OKP COUNT4.89 X10E12/LNormal4.10-5.70[facility] Comment on above:Performed By: #### CBCA, BMP, LIVR, 38794-8, 15515-9, 5643-2 #### [facility] ([id number]) [address] [place] [address] 36727IFZ (Bld) [#/Vol]7.3 10*3/uLNormal4.0-11.0The MetroHealth SystemComment on above:Performed By: #### CBCA, BMP, LIVR, 78769-6, 14438-9, 5643-2 #### [facility] ([id number]) [address] [place] [address] 90915UC BRAIN WO CONT STROKE ALERTon 68-41-2690AY BRAIN WO CONT STROKE ALERTCT BRAIN WO CONT STROKE ALERT CLINICAL HISTORY: [...] by Darien Gomez MD on 06/06/2024 7:35 AMNormalProMedica [facility] Gross[facility] Burn CenterCT CEREBRAL PERF ANALYSISon 40-62-4001WI CEREBRAL PERF ANALYSISNormal Access Hospital DaytonCT CTA CAROTIDon 42-51-3664GX CTA CAROTIDCT CTA CAROTID CT CTA CAROTID CLINICAL HISTORY: [...] Finalized by Ravin Feliciano on 06/06/2024 7:55 AMNormalSelect Medical Specialty Hospital - [facility], Incca [facility] Gross[facility] Burn CenterCT CTA HEADon 05-89-9459UW CTA HEADCT CTA HEAD CT angiogram head with contrast [...] in the diagnosis of large vessel occlusion inpatients undergoing screening for acute ischemic stroke using [...] acute large vessel occlusion of the major [place] of [place] arterial structures. If there is persistent concern for ischemia, recommend MR. Sequelae nonacute ischemic events. All CT scans at this facility use dose modulation, iterative reconstruction, and/or weight based dosing when appropriate to reduce radiation dose to as low as reasonably achievable. Finalized by Alon Alejo MD on 06/06/2024 7:43 AMNormalProVal Verde Regional Medical CenterETHANOLon 22-89-8203Klhdfod [Mass/Vol]mg/dLNormal0.00-0.08The MetroHealth SystemComment on above:Result Comment: This report is intended for use in clinical monitoring or management of patients.Performed By: #### CBCA, BMP, LIVR, 16071- 7, 28327-1, 5643-2 #### [facility] ([id number]) [address] [place] [address], [place], [place] [address]Qlsfoci Glucometer (BldC) [Mass/Vol]on 38-35-4938Tctezpb [Mass/Vol]171 mg/vECnlr19-53JlgLduitrAccess Hospital DaytonGlucose [Mass/Vol]155 mg/dL Wdak12-98AqqAmosfwAccess Hospital DaytonGlucose [Mass/Vol]175 mg/qNXhkj28-28EctTrwzdfSelect Medical [facility] Hospital, AvonGlucose [Mass/Vol]214 mg/tUBrop73-44DreBbuamtThe MetroHealth SystemHGB A1C (GLYCO-HGB)on 21-05-5228Wnhwftv [Mass/Vol]143 mg/dLNormalAccess Hospital DaytonComment on above:Performed By: #### HA1C ####[facility] ([id number])[address], [address] [place] [address] 74019OqL9z (Bld) [Mass fraction]6.6 %High4.4-5.6Access Hospital DaytonComment on above:Result Comment: NOTE ADA Guidelines Result HgbA1c Normal : less than 5.7 % Prediabetes : 5.7 % to 6.4 % Diabetes : > 6.4 %Use with caution in patients with abnormal hemoglobin variants asthe half-life of red blood cells and in vivo glycation rates areaffected.Performed By: #### HA1C ####[facility] ([id number])[address] [facility], [address] [place] [address] 76824WYGTM PANELon 55-52-2432Mexsvpo [Mass/Vol]3.5 g/dLNormal3.2-5.3PKindred Hospital LimaComment on above:Performed By: #### CBCA, BMP, LIVR, 37347-4, 17572-4, 5643-2 #### [facility] ([id number]) [address] [place] [address] 47195RIF [Catalytic activity/Vol]54 U/OTpojdr51-010HsrTkpqpmVal Verde Regional Medical CenterComment on above:Performed By: #### CBCA, BMP, LIVR, 26783-2, 95612-7, 5643-2 #### [facility] ([id number]) [address] [place] [address] 06993TEO [Catalytic activity/Vol]15 U/LNormal0-40ProVal Verde Regional Medical CenterComment on above:Performed By: #### CBCA, BMP, LIVR, 05176-2, 07465-2, 5643-2 #### [facility] ([id number]) [address] [place] [address] 43881KNJ [Catalytic activity/Vol]22 U/LNormal0-41ProVal Verde Regional Medical CenterComment on above:Performed By: #### CBCA, BMP, LIVR, 34314-6, 72453-3, 5643-2 #### [facility] ([id number]) [address] [place] [address] 46521Lnfunfijq [Mass/Vol]0.8 mg/dLNormal0.3-1.2PKindred Hospital LimaComment on above:Performed By: #### CBCA, BMP, LIVR, 18107-4, 85882-7, 5643-2 #### [facility] ([id number]) [address] [place] [address] 59853Sxynjqxtd.direct [Mass/Vol]0.1 mg/dLNormal0.0-0.4The MetroHealth SystemComment on above:Performed By: #### CBCA, BMP, LIVR, 34909-4, 07985-4, 5643-2 #### [facility] ([id number]) [address] [place] [address] 81790Vfbvrbk [Mass/Vol]6.7 g/dLNormal6.0-8.0ProVal Verde Regional Medical CenterComment on above:Performed By: #### CBCA, BMP, LIVR, 83152-5, 34640-6, 5643-2 #### [facility] ([id number]) [address] [place] [address] 96091Fjycuknaqe comment Sadi (Report)on 90-48-1064TEHBBOKC LAB TEST RLABNormalAccess Hospital DaytonComment on above:Result Comment: BY RESEACH Lactate (P chauncey) [Moles/Vol]on 87-14-4413UPPXOHH W/REFLEX2.6 mmol/LHigh0.4-2.0 The MetroHealth SystemComment on above:Performed By: #### 44856-5 ####[facility] ([id number])[address] [place] [address] 70452MJ BRAIN WO CONTon 32-54-4368LJ BRAIN WO CONTNormalProKindred Healthcare HospitalNatriuretic peptide B [Mass/Vol]on 31-93-1397Gofzfapxesg peptide B (Bld) [Mass/Vol]30 pg/mLNormal<100.0The MetroHealth SystemComment on above:Performed By: #### CBCA, BMP, LIVR, 21415-7, 92987-8, 5643-2 #### [facility] ([id number]) [address] [place] [address] 63441CIYESPS AND INRon 63-69-6428SGX Coag (PPP) [Relative time]1.1 {INR}Normal0.8-1.1ProMedica Hayden HospitalComment on above:Performed By: #### PINR, 51457-7 ####[facility] ([id number])[address] [facility], [address], [place] [address]TA Coag (PPP) [Time]12.3 sNormal9.8-13.2PMarietta Memorial HospitalComment on above:Performed By: #### PINR, 01351-1 ####[facility] ([id number])[address] [facility], [address] [address]Btsokyfm I.cardiac High sensitivity method [Mass/Vol]on HOUR TROP I, HIGH EPZVJBIYYUF66 ng/LNormal<21The MetroHealth SystemComment on above:Performed By: #### 64747-0 ####[facility] ([id number])[address] [place] [address] 99998FZVSMUJC I, HIGH MTRIPGRYPVT53 ng/LNormal<21 The MetroHealth SystemComment on above:Performed By: #### CBCA, BMP, LIVR, 82696-3, 41591-2, 5643-2 #### [facility] ([id number]) [address] [place] [address] 00397GQ CHEST 1 VWon 51-67-4858NX CHEST 1 VWXR CHEST 1 VW HISTORY: Shortness of breath COMPARISON: Chest x-ray 01/04/2019 FINDINGS: Portable AP upright view of the chest was performed. Cardiac silhouette is grossly withinnormal limits. Diminished lung volumes accentuate bibasilar atelectasis and vascular crowding. No significant airspace consolidation, pleural effusion or pneumothorax. IMPRESSION: * Mild congestion and edema, accentuated by decreased level of inspiration. Finalized by Trevor Weaver MD on 06/06/2024 7:49 AMNormalProTrihealth Bethesda Butler Hospitalca [facility] Burn CenteraPTT Coag (PPP) [Time]on 68-66-3225mRRO Coag (Bld) [Time]30 zOfxnnv08-81 Access Hospital DaytonComment on above:Performed By: #### PINR, 90102-3 ####[facility] ([id number])[address] [facility], [address] [address] Vital Signs Date TimeVital SignValuePerforming XqlauylqtEdpowiwq48-57-5216 10:54-0400 Diastolic blood bvwewrxt00 mm[Hg]Za Alcala MD Work Phone: 1(457)[address]09-04-2025 10:54-0400 Systolic blood crlekiah834 mm[Hg]Za Alcala MD Work Phone: [phone])98[address]07-28-2025 10:23-0400 Body .4 kgZa Alcala MD Work Phone: [phone])32473 [address]07-28-2025 10:23-0400 Diastolic blood zluisyhs041 mm[Hg]Za Alcala MD Work Phone: [phone])[address]07-28-2025 10:23-0400 Heart rate61 /minZa Alcala MD Work Phone: [phone])[address]07-28-2025 10:23-0400 Systolic blood tqvfwzil373 mm[Hg]Za Alcala MD Work Phone: [phone])[address]05-08-2025 10:27-0400 Body qfoqko435.8 cmAlisa NAYLOR Work Phone: noChristian HospitalFlhhakijnp89-10-3974 10:27-0400Body mass index (BMI) [Ratio]26.54 kg/m2Esther NAYLOR Work Phone: [facility] HospitalYyfncqcnkp69-92-7374 10:27-0400Body kfjxyi92.92 kgEsther NAYLOR Work Phone: NOChristian HospitalBadrwxivlj61-84-7254 10:27-0400Heart rate62 /min Esther NAYLOR Work Phone: noChristian HospitalXabokdzgss97-44-7088 10:27-0400Respiratory rate16 /minEsther NAYLOR Work Phone: [facility] HospitalUuipgcwqrf47-01-7183 10:274879TyK2% (BldA) [Mass fraction]97 %Esther NAYLOR Work Phone: [facility] HospitalTweicbeihy60-07-7358 10:45-0400Body .2 cmNicole Sylwia DO Work Phone: [facility] HospitalDmusasdtie23-87-1175 10:45-0400Body mass index (BMI) [Ratio]28.1 kg/q8Wezefe Sylwia DO Work Phone: [facility] HospitalJxwzpjqidc29-97-4239 10:45-0400Body qxeerr63.38 kgNicole Sylwia DO Work Phone: [facility] HospitalLwidmhgvvs34-30-7584 10:45-0400Diastolic blood tnwzrbyy81 mm[Hg]Luis M Sylwia DO Work Phone: [facility] HospitalPunoatmkan70-77-8631 10:45-0400Heart rate63 /min Luis M Sylwia DO Work Phone: [facility] HospitalFykwaihqjc46-89-2977 10:457024IkP4% (BldA) [Mass fraction]98 %Luis M Sylwia DO Work Phone: [facility] HospitalUwzglvpexq30-17-6355 10:45-0400Systolic blood enclnamf093 mm[Hg]Luis M Sylwia DO Work Phone: [facility] HospitalFicdmtljxf09-44-6747 08:12-0400Body whcfpo617.7 cmNisa Sabillon MD Work Phone: 1([phone])[facility]04-03-2025 08:12-0400Body mass index (BMI) [Ratio]27.28 kg/a8JvughjpNisa Sabillon MD Work Phone: 1(466)[facility]04-03-2025 08:12-0400Body lneozfjfjli27.2 [degF]Nisa Sabillon MD Work Phone: [phone])[facility]04-03-2025 08:12-0400Body btepis46.38 kgMomichelle Sabillon MD Work Phone: 1(284)[facility]04-03-2025 08:12-0400Diastolic blood taoqrzwc93 mm[Hg]Nisa Sabillon MD Work Phone: 1(691)[facility]04-03-2025 08:12-0400Heart rate 63 /minMomichelle Sabillon MD Work Phone: 1(419)[facility]04-03-2025 08:12-3660RfL2% (BldA) [Mass fraction]98 %Nisa Sabillon MD Work Phone: 1(419)[facility]04-03-2025 08:12-0400Systolic blood ijjcsmzk945 mm[Hg]Nisa Sabillon MD Work Phone: 1(419)[facility]02-19-2025 13:19-0500Diastolic blood rqdaatyl33 mm[Hg]Janell Trimble MD Work Phone: [facility]02-19-2025 13:19-0500Heart rate 86 /minSharmony Trimble MD Work Phone: [facility]02-19-2025 13:19-0500Systolic blood elljupyy914 mm[Hg]Janell Trimble MD Work Phone: [facility]11-27-2024 13:37-0500Diastolic blood fmfraijs15 mm[Hg]Janell Trimble MD Work Phone: [facility]11-27-2024 13:37-0500Heart rate 90 /minShramony Trimble MD Work Phone: [facility]11-27-2024 13:37-0500Systolic blood wyhofxlc693 mm[Hg]Janell Trimble MD Work Phone: [facility]10-03-2024 08:47-0400Body tpcysv781.2 cmNisa Sabillon MD Work Phone: 1([phone]10-03-2024 08:47-0400Body mass index (BMI) [Ratio]31.17 kg/m7KdhrhkoNisa Sabillon MD Work Phone: [phone])[facility]10-03-2024 08:47-0400Body hgnvlibdpdi00 [degF]Nisa Sabillon MD Work Phone: [phone]10-03-2024 08:47-0400Body wfoiyp75.27 kgNisa Sabillon MD Work Phone: 1(841)[facility]10-03-2024 08:47-0400Diastolic blood mlrwlkhu36 mm[Hg]Nisa Sabillon MD Work Phone: 1(338)[facility]10-03-2024 08:47-0400Heart rate 104 /minNisa Sabillon MD Work Phone: 1(196)[facility]10-03-2024 08:47-1360QpK6% (BldA) [Mass fraction]94 %Nisa Sabillon MD Work Phone: 1(321)[facility]10-03-2024 08:47-0400Systolic blood mhubjygd892 mm[Hg]Nisa Sabillon MD Work Phone: 1([phone])[facility]09-15-2024 20:28-8827LfO9% (BldA) [Mass fraction]95 %HYUN [facility] Health SystemComment on above:Performed By: #### ABG ####[facility] ([id number])[address] [place] [address] Encounters Encounter DateEncounter TypeCare ProviderFacilityStart: 06-15-2025 End: 96-90-3671xmxoyprhfyDvbql M Alda MD Work Phone: [facility] Work Phone: Start: 06-15-2025 End: 41-59-0807Roecgia encounter procedureNicvitaliy Dao DO-[facility] [place] Work Phone: Start: 05-08-2025 End: 86-00-1443tolxoaqadpNmkgy M Alda MD Work Phone: [facility] Work Phone: Start: 05-08-2025 End: 54-16-6288Clwerkl encounter Robert Guzman APRN-[facility] [place] Work Phone: Start: 02-27-2025 End: 60-52-9323Hvmcrl encounterMychart ProviderMetroFreeman [facility] Institute Department Start: 02-16-2025 End: 00-32-2643Istayy Javier NAYLOR Work Phone: aNA KAYLEIGHUEStart: 02-16-2025 End: 32-37-9057Ducehb Javier NAYLOR Work Phone: aGRACE KAYLEIGHUEStart: 02-16-2025 End: 17-18-7009qfpnzzcdbjZBNI HILLNot AvailableStart: 02-16-2025 End: 36-60-5919Tvrwvj outpatient visit 25 minutesEsther NAYLOR Work Phone: aNA [place]IANAComment on above:Cerebral infarction due to occlusion of right anterior cerebral artery (CMS/HCC) (Primary Dx); 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); Left spastic hemiparesis (CMS/HCC); Seizure-like activity (CMS/HCC); Aphasia; Dysphagia, unspecified type; Deep vein thrombosis (DVT) of proximal vein of both lower extremities, unspecified chronicity (CMS/HCC)Start: 01-12-2025 End: 83-77-6615rijagjwipcQBODMR DANNERNot AvailableStart: 01-12-2025 End: 01-40-4922Rvzgze outpatient visit 15 minutesMohamed Octavio Sabillon MD Work Phone: [facility] Jobst Vascular SurgeryComment on above:Deep vein thrombosis (DVT) of femoral vein, unspecified chronicity, unspecified laterality (CMS-HCC) (Primary Dx); Presence of IVC filterStart: 01-12-2025 End: 17-08-8510rvhdascbtmWBHFPEQFroedtert Hospital Ambulatory PPGStart: 01-02-2025 End: 28-08-6935cyaawwjukfNyomgfk Rossy Garcia MDFacility:PM [place] Start: 12-19-2024 End: 26-91-4822Yrxsgwgwo Result EncounterGeneric External Data ProviderNOMS External Department UnsolicitedStart: 12-19-2024 End: 60-34-2027Ifwppivqp Result EncounterGeneric External Data ProviderNOMS External Department UnsolicitedStart: 11-30-2024 End: 79-28-1868Dfwtkn outpatient visit 25 minutesSyed Octavio Trimble MD Work Phone: [facility] NeurologyComment on above: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); Weakness as late effect of cerebrovascular accident (CVA); Seizure-like activity (CMS-HCC)Start: 11-30-2024 End: 70-58-1719gczcalkxecPKAVOur Lady of Fatima Hospital Ambulatory PPGStart: 09-28-2024 End: 91-27-6390qscytixmtyLlajtos SurfieldFacility:[facility] Hospitaltart: 09-21-2024 End: 20-41-6590Tbbuutrjn encounterPaige Bassem [facility] Start: 09-20-2024 End: 76-78-5620Osxqbackv encounterKeny Zheng CONTROL CHEMIST Work Phone: NOMS CI FMStart: 09-09-2024 End: 53-91-0378Pdlcdpsmz encounterFaby FrancoTriHealth McCull[facility] Physicians Neurology Comment on above:concernsStart: 09-07-2024 End: 75-04-7335bgroomrugvFXSSMKDepartment of Veterans Affairs Medical Center-LebanonComment on above: 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 (CMS-HCC) (Primary Dx); Other cerebrovascular vasospasm and vasoconstrictionArrivedStart: 09-07-2024 End: 87-77-6698Ivcnvk outpatient visit 25 minutesSyed Octavio Trimble MD Work Phone: [facility] Physicians NeurologyComment on above:Hx of ischemic right EMILIA stroke (Primary Dx)Start: 09-07-2024 End: 34-54-7198efionmnfiwJRKGHCA Florida Starke Emergency Ambulatory PPGStart: 08-14-2024 End: 67-91-3157Fjdcogdzg encounterKeny Zheng CONTROL CHEMIST Work Phone: NOM[facility] CI FMStart: 08-11-2024 End: 07-69-6273Kvaooqtby encounterKeny Zheng CONTROL CHEMIST Work Phone: N[facility] CI FMStart: 07-19-2024 End: 79-55-4947jtgdtxbakfZUFKFMaria Parham Health HospitalStart: 07-19-2024 End: 51-50-9249zhupvnqyswFLHYAAscension Providence Hospital HospitalStart: 07-14-2024 End: 63-38-6202Ntyumo outpatient visit 25 minutesMohamed Octavio Sabillon MD Work Phone: [facility] Phys[facility] Jobst Vascular SurgeryComment on above:Acute deep vein thrombosis (DVT) of distal vein of both lower extremities (CMS-HCC) (Primary Dx); 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 (CMS-HCC)Start: 07-04-2024 End: 02-19-5357Vojdcdasp encounterPahiginio [facility] Start: 07-04-2024 End: 60-84-8021kmwhgpfmheREGBOIW J HOLY CROSS HOSPITALHILLARYCorey Hospital HospitalStart: 07-03-2024 End: 01-87-2962QargbtBina Chun PA-C Work Phone: [facility] NeurologyComment on above:Lesion of skin of nose (Primary Dx)Start: 07-02-2024 End: 21-46-3516hsbifdsvdiXCIYXYAFW F TAORMINACorey Hospital HospitalStart: 06-30-2024 End: 69-03-2696Wdydqhrfd encounterCherie McMorganProMedica Call CenterComment on above:previous peg placementStart: 06-28-2024 End: 72-79-2659Pndzwafew encounterEurydice MossProMedica Call CenterComment on above:Blood Sugar 88 Scheduled 28 Units of HumalogStart: 06-23-2024 End: 84-88-1297Tmmrengxyyhso drug monitoringHonorhealth Scottsdale Thompson Peak Medical Centermylene Mayer [facility] Work Phone: [facility] Medication Therapy ManagementComment on above:Acute deep vein thrombosis (DVT) of distal vein of both lower extremities ([facility]-HCC) (Primary Dx)Start: 06-11-2024 End: 93-92-0637Xnbyblqoi encounterCrimarcel Jordan [facility]-LEBANONProMedica Call Center Comment on above:Consult; PEG tube placementStart: 06-06-2024 End: 95-50-7749Dtlruiijnggcq procedureDipreston Quinn [facility] Start: 06-06-2024 End: 72-10-3854rddaqfmakfPPAUXEJ PROVIDERFacility:METROHealthStart: 06-06-2024 End: 52-48-5618Behmwjytus and management of inpatientMOUHAMMAD A JUMAAProMedOhio State Health System HospitalStart: 06-06-2024 End: 71-51-3233Jaqynncif department patient visitVALEJOHNNY GARCIAProMedica Toledo Hospital HospitalStart: 06-02-2024 End: 83-01-7376Ogozgksae encounterRaina ROSARIO Work Phone: [facility] - Family Medicine Procedures DateProcedureProcedure DetailPerforming ClinicianStart: 73-14-9232ZL HUMERUS LT* Generic External Data ProviderStart: 26-44-3015Whzxq depression screening assessmentSyed Nai QUINONES Work Phone: Start: 07-69-3154Octgn depression screening assessment Pnsc Nurse Plan of Treatment DateCare ActivityDetailAuthorStart: 31-95-3270LEJ vaccine (adult) (1 - 1-dose 75+ series)RSV vaccine (adult) (1 - 1-dose 75+ series)MetroHealthStart: 55-09-8385WDcR,Tdap and Td Vaccines (3 - Td or Tdap)DTaP,Tdap and Td Vaccines (3 - Td or Tdap)[facility] Health SystemStart: 89-10-2106Jzxfe BMI ScreeningAdult BMI ScreeningProCitizens Baptist Health SystemStart: 06-17-3085Ezvfvzkpff Screening Depression ScreeningProCitizens Baptist Health SystemStart: 52-21-6044Xtxgcvl Screening Tobacco ScreeningProCitizens Baptist Health SystemStart: 74-45-0702Kchoqxapqt Screening Depression ScreeningProCitizens Baptist Health SystemStart: 45-63-3889Mjtgqyd Screening Tobacco ScreeningProTrihealth Bethes[facility] Butler Hospitalca Health SystemStart: 08-92-2812Galtk BMI Screening Adult BMI ScreeningProCitizens Baptist Health SystemStart: 60-46-0360Feyjqoo Screening Tobacco ScreeningProTrihealth Bethes[facility] Butler Hospitalca Health SystemStart: 59-18-6019Uswvl BMI Screening Adult BMI ScreeningProTrihealth Bethesda Butler Hospitalca Health SystemStart: 33-15-3729Oyaxp BMI Screening Adult BMI ScreeningProTrihealth Bethesda Butler Hospitalca Health SystemStart: 83-76-1494Jfbmy BMI Screening Adult BMI ScreeningProTrihealth Bethesda Butler Hospitalca Health SystemStart: 06-19-5149Pzrewwj Screening Tobacco ScreeningSelect Medical Specialty Hospital [facility] Boardman, Incca Health SystemStart: 58-62-9582Xhvpn BMI Screening Adult BMI ScreeningProTrihealth Bethesda Butler Hospitalca [facility] SystemStart: 02-21-2903Qqblsip Screening Tobacco ScreeningProCitizens Baptist Health SystemStart: 98-58-1280Xfpkhmmnk vaccination ProMwiregrass medical center Health SystemStart: 83-02-4441Cooec BMI ScreeningAdult BMI Screening [facility] Health SystemStart: 77-10-3958Awwjp BMI ScreeningAdult BMI Screening [facility] SystemStart: 72-00-7652Fwratwt ScreeningTobacco Screening [facility] SystemStart: 42-71-1615Ophxjsg referralMansfield Hospital Work Phone: Start: 05-08-2025 End: 18-36-5632Bzaqrox encounter fkgbapjvr87/28/2025 10:00 AM EDT Office Visit [facility] [place] [address] [place] [phone] Ariane Estevez NP [address] [place] [facility] [place]LL[place]: 02-16-2025 End: 55-77-8000Dwooxyr encounter xqjpwjarc08/08/2025 10:20 AM EDT Office Visit [facility] [place] [address] [facility] [phone] Esther Walls PA [address] [place] [address] C[facility]AR ARGUELL[place]: 02-01-2025 End: 15-29-4358Rhwmnxh encounter /23/2025 9:00 AM EDT Appointment [facility] - Radiology [address] [place] [place] [address] [facility]iologyStart: 01-25-2025 End: 69-93-8079Jhiuqmzr Wsvqqjl2601/25/2025 10:00 AM EDT Clinical Support [facility] [address] [place] [phone] [facility]NA [place] Start: 01-12-2025 End: 46-61-1538MAB awake or drowsyEEG awake or drowsy Neurology Routine Cerebral infarction due to occlusion of right anterior cerebral artery (CMS/HCC) Seizure- like activity (CMS/HCC) Expected: 01/12/2025 (Approximate), Expires: 01/12/2026 [facility] Work Phone: comment on above:Expected: 01/12/2025 (Approximate), Expires: 01/12/2026Start: 01-12-2025 End: 49-69-1642Fwkqnfo encounter procedureCESAR FORDComment on above:Arrived Start: 01-12-2025 End: 20-68-0356Fjyqlxe encounter abcwisywd05/03/2025 8:30 AM EDT Office Visit [facility] Vascular Surgery [address] [place] [address] Nisa Sabillon MD [address] , [address] [address] [facility] Vascular SurgeryStart: 11-30-2024 End: 05-86-4344Xtfyrrg encounter yavkajixw86/19/2025 1:30 PM EST Office Visit [facility] Neurology [address] [place] [address] Janell Trimble MD [address] [facility], [address] [place] [address] [facility] NeurologyStart: 11-30-2024 End: 26-81-3614Ylkldtbftoes consultation with liucxtt1711/30/2024 1:30 PM EST Telemedicine [facility] Neu[facility] [place] [address] Janell Trimble MD [address] [place] [address], [address] [place] [address] [facility] NeurologyStart: 09-07-2024 End: 37-58-8601Nsbtmqys Telemetry (In Office)[facility] Work Phone: Comment on above:Expected: 09/07/2024, Expires: 09/07/2025Start: 08-10-2024 End: 43-77-7308Pgwgvgk encounter loadzrsub71/30/2024 3:30 PM EDT Office Visit [facility] Neurology [address] [place] [address] Janell Trimble MD [address] [facility], [address] [place] [address] [facility] NeurologyStart: 08-01-2024 End: 02-74-7582Vrstcbn encounter ldmaejkoh26/21/2024 2:00 PM EDT Office Visit [facility] Internal Medicine - Family Medicine [address] [place] [address] Raina Garcia, ASSEMBLER [employer] [address] [place] [address] [facility] 07-14-2024 End: 52-02-7684Dmyljpt encounter /03/2024 8:30 AM EDT [facility] [address] [place] [address] Nisa Sabillon MD [address], [address] [address] [facility] Vascular SurgeryStart: 07-13-2024 End: 34-37-6722Hoapdkj encounter ylbquemqx04/02/2024 3:00 PM EDT Office Visit [facility] Neurology [address] [place] [phone] Janell Trimble MD [address] [facility], [address] [place] [address] [facility] NeurologyStart: 99-70-5862BNGQI-19 Vaccine ( season)COVID-19 Vaccine ( season)[facility] Start: 80-46-6911CDJQD-19 Vaccine ( season)COVID-19 Vaccine ( season)[facility] SystemStart: 79-71-8707IUKTG-19 Vaccine ( season)COVID-19 Vaccine ()[facility] Start: 60-92-7009Yhutelxug vaccinationInfluenza VaccineMemorial Health [facility] Start: 67-00-5657LYRTJ-19 Vaccine ()COVID-19 Vaccine ()[facility] SystemStart: 95-11-3926Wmbsagyvoamcjs of varicella zoster vaccineMemorial Health System [facility] SystemStart: 08-98-1200UOBUO-19 Vaccine ( season)COVID-19 Vaccine ()[facility] Start: 95-77-9588Asabp BMI ScreeningAdult BMI ScreeningTrinity Health System [facility] Start: 50-43-3714Wdbmouz ScreeningTobacco ScreeningMemorial Health System [facility] SystemStart: 23-42-2733Iyze Risk ScreeningFall Risk ScreeningMemorial Health System [facility] SystemStart: 26-79-3830Uxahmxthgigr Vaccine: 65+ Years (1 of 1 - PCV)Pneumococcal Vaccine: 65+ Years (1 of 1 - PCV)[facility]: 38-13-0344Vwtwnajyp B (HBV) Vaccine (optional start 60+ years)Hepatitis B (HBV) Vaccine (optional start 60+ years)[facility]: 63-63-8529Maalserumdwhqv of varicella zoster vaccine Zoster (Shingles) Vaccine (1 of 2)[facility] SystemStart: 2007 Pneumococcal vaccinationPneumococcal Vaccine(s) (50+ yrs) (1 of 1 - PCV) [facility]Start: 93-82-8609Bbkmwnqp (RZV) Vaccine (1 of 2)Shingles (RZV) Vaccine (1 of 2)[facility]Start: 56-17-5972Qsenwwpqa for malignant neoplasm of colonMetroHealthStart: 28-86-2256Bkaicu wellness visitAnnual Wellness Visit (G0438)[facility]Start: 71-18-5223Tuyxo panelCholesterolMetroHealthStart: 38-47-0709Frksciqao A (HAV) Vaccine (optional start 19+ years)Hepatitis A (HAV) Vaccine (optional start 19+ years)[facility]Start: 27-11-3568Oyekfmb vaccinationTetanus (Td or Tdap) BoosterMetroHealthStart: 30-68-3157Abvpl BMI Follow Up PlanAdult BMI Follow Up PlanMemorial Health System [facility] SystemStart: 1975 Diabetic foot examinationDiabetic Foot ExamProScci Hospital [facility] SystemStart: 67-19-4183Suarvzukh C screeningHepatitis C AntibodyMetroHealthStart: 1975 Tdap BoosterTdap BoosterMetroHealthStart: 88-94-1930Erfdqflnnt Screening Depression ScreeningMemorial Health System [facility] SystemStart: 67-84-5860Fjgarbjl screening Diabetic Ophthalmology ExamProScci Hospital [facility] SystemStart: 1957Medicare Annual Wellness VisitMedicare Annual Wellness VisitProFairfield Medical Centertart: 00-28-3116Wkeivgxxj for malignant neoplasm of colonNOMS HealthcareStart: 90-36-8410Nrxanz Use: CardiovascularStatin Use: CardiovascularMemorial Health System [facility] SystemStart: 43-93-5856Gqsnsz Use: DiabeticStatin Use: DiabeticMemorial Health System [facility] SystemStart: 74-12-1690Wnzps screening for proteinUrine MicroalbuminTrinity Health [facility] End: 93-21-6581J-DimerD-Dimer Lab Routine Deep vein thrombosis (DVT) of femoral vein, unspecified chronicity, unspecifiedlaterality ([facility]-HCC) 1 Occurrences starting 01/12/2025 until 07/14/2026[facility] Work Phone: [phone] on above:1 Occurrences starting 01/12/2025 until 07/14/2026Patient referralMansfield Hospital Work Phone: Immunizations Immunization DateImmunizationNotesCare VbtehmkpVecjbgyf02-78-7976pjflvhizc virus vaccine, unspecified formulationNisa Sabillon MD Work Phone: [facility] CampusIknxqy07-24-6638Mntvjmfkeffp Conjugate 20-valentDiane [facility]08-31-2023zoster vaccine recombinantDiane [facility]08-31-2023zoster vaccine, unspecified formulationDiane [place] RNProMedica Health Jsajoq41-15-2709 Influenza Vaccine, Quadrivalent, AdjuvantedDiane [facility]08-24-2023influenza virus vaccine, unspecified formulationNancy Quinn RN [facility] CampusAdsuzf26-23-3709Hvrjagkkw, High-dose, QuadrivalentAlegent Health [facility]09-19-2021influenza, injectable, quadrivalent, preservative freeDiane [facility]09-19-2021influenza virus vaccine, unspecified formulationBridgetterikory ROSARIO Work Phone: [facility] HospitalTpvnmx27-88-1427lnqayfmsj, injectable, quadrivalent, preservative freeDiane [facility]08-20-2019influenza, seasonal, injectableAleg[facility] Health [facility]09-20-2017influenza, seasonal, injectable, preservative freeDnonie [facility]02-04-2017tetanus toxoid, reduced diphtheria toxoid, and acellular pertussis vaccine, adsorbedAlegent Health [facility] Hospital 64-63-4737irzdsrhpk, seasonal, injectable, preservative Agatanonie Kai SORTO [facility]08-14-2015tetanus toxoid, reduced diphtheria toxoid, and acellular pertussis vaccine, adsorbedAlegent Health [facility] Payers DatePayer CategoryPayerPolicy [id number]-pay2024Medicare (Managed Care)[id number] 2021Medicare O [id number] [id number] [id number] [id number] 2018Medicaid [id number] [id number] [id number] 2008Medicare [id number] 2.16.840.1.794179.3.579.2.01025-48-8391 [id number] 2.16.840.1.304708.3.57[id number] 2.16.840.1.410327.3.57[id number] 2.16.840.1.699084.3.57[id number] 2.16.840.1.467270.3.57[id number] 2.16.840.1.366345.3.57[id number] 2.16.840.1.017469.3.57[id number] 2.16.840.1.122262.3.57[id number] 2.16.840.1.015379.3.57[id number] 2.16.840.1.756356.3.57[id number] 2.16.840.1.612985.3.57[id number] 2.16.840.1.462801.3.57[id number] 2.16.840.1.967817.3.57[id number] 2.16.840.1.683315.3.57[id number] 2.16.840.1.276050.3.57[id number] 2.16.840.1.006636.3.57[id number] 2.16.840.1.804613.3.57[id number] 2.16.840.1.001247.3.57[id number] 2..840.1.690158.3.57[id number] 2.16.840.1.669567.3.57[id number] 2.16.840.1.950680.3.57[id number] 2.16.840.1.321184.3.57[id number] 2..840.1.197655.3.579.2.531 Social History DateTypeDetailFacilityTobacco smoking status NHISTobacco smoking consumption unknownMemorial Health [facility] SystemStart: 44-89-7675Qcm assigned at birthNot on file [facility] SystemStart: 11-22-2020 End: 25-20-5404Ecfosg identityNot on fileMemorial Health System [facility] SystemStart: 06-09-2022 End: 95-12-1109Vyqragz smoking status NHISNever smoked tobaccoWhite River Junction Va Medical CenterSoundRoadie SystemStart: 16-95-7895Vrjimyz use and exposureSmokeless tobacco non-user [facility] HospitalClean Membranestart: 09-07-2024 End: 05-35-0684Hmstwyyri beverage intakeEx-drinker (finding)[employer] SystemStart: 11-22-2020 End: 96-71-9517Tuzndgd of Social functionProTrihealth Bethesda Butler HospitalMavatarHas the [employer] gas, oil, or water Microweber threatened to shut off services in your home in past 12MoPatient unable to answerWhite River Junction Va Medical CenterKing World ([place]) ITHow often to you have a drink containing alcohol?NeverProOndaViatart: 05-17-2015 End: 68-81-6568KerWwax (finding)Unique Blog Designstart: 06-79-8652Oqh Assigned At [facility] Medical Equipment Procedure CodeEquipment CodeEquipment Original TextEquipment IdentifierDates Filter Embl 49mm 65cm Vc Rdpq Preld Flsh Sdprt Intro Strl Rpl [id number] - [id number]()[id number] FDAStart: [id number]: [id number]: 06-01-2020 [id number]: 52-36-0590Ycii-eluting coronary artery stent, qmg-asixdzxwbjfwa-ucyerwx-coated()[id number] FDAStart: 59-18-0263Dmxb-eluting coronary artery stent, tav-caemuainrdwhu-lssllwt-coated ()[id number] FDAStart: 53-05-6982Bertbgg artery closure plug/patch, synthetic polymer()[id number] FDAStart: 06-01-2020 Goals DatePatient GoalDesired Activity/StatePersonal health goalComment on above: Evaluation of progress towards goal: pt will likely need SNF vs IPR pending progress Clinical Notes 06-02-2024 to 05-08-2025 Note Date & QuoqJqvdAsdlhdzq15-67-5410 Evaluation note* Diagnosis Onset Date Resolution Status Admit Date Aphasia acuteJuly 2024 9:48amDVT (deep venous thrombosis)acuteJuly 2024 9:48amLeft spastic hemiparesisacuteJuly 2024 9:48amMuscle crampingacute Joi 2024 9:48amNontraumatic cortical hemorrhage of right cerebral hemisphereacuteJuly 2024 9:48amSeizure-like activityacuteJuly 2024 9:48amCerebrovascular accident (CVA)noneactiveJuly 2024 9:48am [facility] Work Phone: 1(844) 508-210205-08-2025 History of Present illness Narrative* CYNDY Reilly - 02/16/2025 10:20 AM EDT Images from the original note were not included. Chief Complaint Patient presents with Stroke Subjective Ranjeet Medellin, 69 y.o., male HPI SEIZURE -patient is a resident at [facility] -stroke June 06, 2024 and has been in a alf since being discharged - is present for appt today -EEG to review -she reports she has not been told of any starring episodes from the facility -patient ambulates in wheelchair -damaso lift at facility -denies any recent falls No past medical history on file. Past Surgical History: Procedure Laterality Date CT GUIDED TRANSVAGINAL TRANSRECTAL FLUID DRAIN 06/06/2024 CT GUIDED TRANSVAGINAL TRANSRECTAL FLUID DRAIN 06/06/2024 No family history on file. Social History Tobacco Use Smoking status: Not on file Smokeless tobacco: Not on file Substance Use Topics Alcohol use: Not on file Allergies: Patient has no known allergies. General: No fever or chills HEENT: No nasal congestion or runny nose Pulmonary: No shortness of breath or cough Cardiovascular: No chest pain or palpitations GI: No nausea or vomiting : No dysuria or hematuria Musculoskeletal: No new aches or pains or muscle weakness Infectious: no recurrent fevers or infections Dermatologic: No rashes or skin lesions Neurologic: No new headaches or dizziness Vitals: 02/16/25 1027 Pulse: 62 Resp: 16 SpO2: 97% Body mass index is 26.54 kg/m . Weight: 185 lb Neurologic exam: General: Normal body habitus, in wheelchair Mental status: Awake and alert Recent and remote memory untestable Inatentative HEENT: NC/AT Cranial nerves: CN II: Visual naranjo full to confrontation. Positive blink to threat bilaterally CN III, IV, : pupils equal round and reactive to light. Extraocular movements intact. No ptosis present. CN V: Facial sensation is grossly normal. CN VII: left facial droop CN VIII: Hearing untestable CN IX and X: cannot test CN XI: Will not perform CN XII: appears WNL Speech: Both expressive and receptive aphasia Pronator drift: We will not perform but can not do on the left upper extremity Coordination: Untestable but does not appear to have any dysmetria Sensory: Withdrawal from pinprick in all 4 extremities Motor: LUE stuck in flexion spasticity mostly at the elbow weakness into the hand RUE 5/5 LLE some flexion spasticity with weakness approximately a 2/5 RLE 5/5 Tone: No tremor spasticity on the left DTR: right Biceps 2/4 right BR 2/4 right Patellar 2/4 Left B, BR and P 3/4 Gait: Wheelchair bound Romberg's x Review and summary of old records: Routine EEG 01/26/2025: normal Assessment/Plan Diagnoses and all orders for this visit: 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 Patient has a history of diabetes, coronary artery disease, DE and previous ischemic infarcts. Per significant other [...] on anticoagulation but suffered a hemorrhagic bleed inthe right parietal lobe. He then had an IVC filter placed. Patient then was having episodes of staring spells that were suspicious for seizure. He ended up having epilepsy monitoring at [facility] that was negative for seizure but showed [...] submitted for Botox injections. He just had amuscle relaxer started to see if this is helpful. He has pain from the spasticity. He follows with pain management, which is who is currently prescribing the muscle relaxer. Plan -EEG reviewed -I will request recent cardiology note from Dr. Sabillon regarding plan for whether IVC filter will beremoved. If it can not stay on indefinitely, then we may need to change treatment plan -Botox injections for left upper extremity spasticity pending insurance approval -Continue with the PEG tube and speech therapy -Continue with control of the secondary stroke risk factors -Continue with the antiplatelet therapy The diagnosis was all discussed with the patient. All questions were answered and they agreed with the treatment plan. Patient will call if there are any new issues or questions. Return to clinic: 2-3 months Esther Walls PA-C documented in this encounterSoutheast Missouri HospitalAecoecvlcz30-18-0583 History of Present illness Narrative* Luis M Dao, - 01/12/2025 10:45 AM EDT Images from the original note were not included. Chief Complaint Patient presents with seizure-like activity Subjective Ranjeet Medellin, 69 y.o., male new patient here in neurologic consultation at the request of Dr Maryse Huff for seizure-like activity. HPI The patient had a stroke June 06, 2024 and has been in a alf since being discharged. He also had 2 strokes previous to this. His is not sure when his seizure-like activity started. She states that the alf told her that he will stare off into space. She is not sure how long the episodes last. She states that she is able to get his attention when he stares off. He doesn't respond to her and will just look at her. He has monitoring in Jun at [facility] and it did not show any signs of seizure. He can say a few words. In May he had a stroke and was at [facility] and then transferred to [facility]. He has not had any deterioration. He has significant RUE spasticity. He saw vascular today with a question of if they can take the IVF out and start on anticoagulation. History reviewed. No pertinent past medical history. Past Surgical History: Procedure Laterality Date CT GUIDED TRANSVAGINAL TRANSRECTAL FLUID DRAIN 06/06/2024 CT GUIDED TRANSVAGINAL TRANSRECTAL FLUID DRAIN 06/06/2024 No family history on file. Social History Tobacco Use Smoking status: Not on file Smokeless tobacco: Not on file Substance Use Topics Alcohol use: Not on file Allergies: Patient has no known allergies. General: No fever or chills HEENT: No nasal congestion or runny nose Pulmonary: No shortness of breath or cough Cardiovascular: No chest pain or palpitations GI: No nausea or vomiting : No dysuria or hematuria Musculoskeletal: No new aches or pains or muscle weakness Infectious: no recurrent fevers or infections Dermatologic: No rashes or skin lesions Neurologic: No new headaches or dizziness Vitals: 01/12/25 1045 BP: 118/72 Pulse: 63 SpO2: 98% Body mass index is 28.1 kg/m . weight: 179 lb 6.4 oz Neurologic exam: General: Normal body habitus, in wheelchair, tugging at his depends. Mental status: Awake and alert Recent and remote memory untestable Inatentative HEENT: NC/AT Cranial nerves: CN II: Visual naranjo full to confrontation. Positive blink to threat bilaterally CN III, IV, : pupils equal round and reactive to light. Extraocular movements intact. No ptosis present. CN V: Facial sensation is grossly normal. CN VII: left facial droop CN VIII: Hearing untestable CN IX and X: cannot test CN XI: Will not perform CN XII: appears WNL Speech: Both expressive and receptive aphasia Pronator drift: We will not perform but can not do on the left upper extremity Coordination: Untestable but does not appear to have any dysmetria Sensory: Withdrawal from pinprick in all 4 extremities Motor: LUE stuck in flexion spasticity mostly at the elbow weakness into the hand RUE 5/5 LLE some flexion spasticity with weakness approximately a 2/5 RLE 5/5 Tone: No tremor spasticity on the left DTR: right Biceps 2/4 right BR 2/4 right Patellar 2/4 Left B, BR and P 3/4 Gait: Wheelchair bound Romberg's x Review and summary of old records: Assessment/Plan Diagnoses and all orders for this visit: 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 Patient has a history of diabetes, coronary artery disease, DE and previous ischemic infarcts. Per significant other [...] on anticoagulation but suffered a hemorrhagic bleed inthe right parietal lobe. He then had an IVC filter placed. Patient then was having episodes of staring spells that were suspicious for seizure. He ended up having epilepsy monitoring at [facility] that was negative for seizure but showed the structural lesion in the right hemisphere. He continues to have these staring spells but no true convulsive activity. We will go ahead and repeat an EEG to lo ok for signs of seizure activity. He did see vascular who has questioning removing the IVC filter and potentially putting him on anticoagulation. We will try to get a hold of Dr. Sabillon to figure out why he would want to do that. Withthe previous hemorrhage and the extensive changes in the brain he will always be at risk for increased hemorrhage However I am not sure how long they can keep the filter in and if there is some timefr carolyn in which they need to remove it. He does have left spastic hemiparesis and we will go ahead and submit him for Botox injections. He just had a muscle relaxer started to see if this is helpful. He has pain from the spasticity. Plan 1 hour EEG to look for underlying seizure activity Records were reviewed and his epilepsy monitoring showed no signs of seizure We will need to talk to Dr. Sabillon to determine why he wants the IVC filter removed as that is likely a safer option with his history then anticoagulation however if it can not stay on indefinitely then we may need to change the treatment plan Submit for Botox injections for left upper extremity spasticity Continue with the PEG tube and speech therapy Continue with control of the secondary stroke risk factors Continue with the antiplatelet therapy The diagnosis was all discussed with the patient. All questions were answered and they agreed with the treatment plan. Patient will call if there are any new issues or questions. Pt has been fully educated on their diagnosis, treatment options, follow up plan, and return instructions Return to clinic: 2 months documented in this encounterSoutheast Missouri HospitalCzglxstvrj67-56-7422 Evaluation + Plan note* Assessment & Plan Note - Nisa Sabillon MD - 01/12/2025 9:55 AM EDT Associated Problem(s): Presence of IVC filter We will get D-dimer. Will get okay from neurology to remove the filter and start him on anticoagulation Prophylactic dose. [facility]04-03-2025 Miscellaneous Notes* Assessment & Plan Note - Nisa Sabillon MD - 01/12/2025 9:55 AM EDTAssociated Problem(s): Presence of IVC filter We will get D-dimer. Will get okay from neurology to remove the filter and start him on anticoagulation Prophylactic dose. documented in this encounterTrinity Health System [facility]04-03-2025 History of Present illness Narrative* Nisa Sabillon MD - 01/12/2025 8:30 AM EDT Images from the original note were not included. To: No primary care provider on file. HPI: Ranjeet Medellin is a 69 y.o. male with History of ischemic stroke with hemorrhagic conversionhad a DVT placed on IVC filter because he had contraindication for anticoagulation. He comes in 6 months later to evaluate filter removal. He is seeing neurology next to see if he is okay to get antic oagulation. He is immobile continue to have the risk for DVT. If he is okay to go back on low-dose Eliquis we will retrieve the filter. Will check D-dimer as well.. Review of Systems: Review of Systems Constitutional: Negative. HENT: Negative. Respiratory: Negative. Cardiovascular: Negative. Gastrointestinal: Negative. Endocrine: Negative. Genitourinary: Negative. Musculoskeletal: Negative. Skin: Negative. Neurological: Negative. Hematological: Negative. Medications: Current Outpatient Medications on File Prior to Visit Medication Sig Dispense Refill acetaminophen (TYLENOL EXTRA [...] tablet (40 mg total) per tube nightly. baclofen (LIORESAL) 10 mg tablet Take 1 tablet (10 mg total) by mouth 3 (three) times a day. busPIRone (BUSPAR) 5 mg tablet Take 1 tablet (5 mg total) by mouth 3 (three) times a day. cholecalciferol, vitamin D3, (VITAMIN D3) 5,000 units capsule Administer 1 capsule (5,000 Units total) per tube in the morning. diclofenac sodium (VOLTAREN ARTHRITIS PAIN) 1 % gel Apply 2 g topically 3 (three) times a day. famotidine (PEPCID) 20 mg tablet Administer 1 [...] as needed. Max Daily Amount: 4 tablets PARoxetine (PAXIL) 10 mg tablet polyethylene glycol (GLYCOLAX) 17 gram packet Administer 17 g per tube in the morning. propylene glycol-glycerin (ARTIFICIAL TEARS,GLYCERIN-PEG,) 1-0.3 % drops ophthalmic solution Administer 1 drop to both eyes 4 (four) times a day as needed for dry eyes. REZVOGLAR KWIKPEN 100 unit/mL (3 mL) insulin pen Inject 10 Units under the skin nightly. sennosides 8.8 mg/5 mL syrup Administer 5 mL (8.8 mg total) per tube nightly. simethicone (GAS RELIEF 80, SIMETHICONE,) 80 mg chewable tablet Chew 1 tablet (80 mg total) and swallow every 6 (six) hours as needed for flatulence. traZODone (DESYREL) 50 mg tablet Take 1 tablet (50 mg total) by mouth nightly. valproate (DEPAKENE) 250 mg/5 mL syrup bacitracin 500 unit/gram packet Apply 1 Application topically in the morning and 1 Application before bedtime. (Patient not taking: Reported on 01/12/2025) insulin lispro (HumaLOG) 100 unit/mL insulin pen Inject 23 Units under the skin every 4 (four) hours. (Patient not taking: Reported on 01/12/2025) levETIRAcetam (KEPPRA) 100 mg/mL solution Take 10 mg/kg by mouth in the morning and 10 mg/kg beforebedtime. (Patient not taking: Reported on 01/12/2025) LORazepam (ATIVAN) 0.5 mg tablet Take 1 tablet (0.5 mg total) by mouth every 8 (eight) hours as needed for anxiety. (Patient not taking: Reported on 09/07/2024) QUEtiapine (SEROquel) 25 mg tablet Take 1 tablet (25 mg total) by mouth in the morning and 1 tablet(25 mg total) before bedtime. (Patient not taking: Reported on 09/07/2024) risperiDONE (RisperDAL) 1 mg tablet (Patient not taking: Reported on 01/12/2025) No current facility-administered medications on file prior to visit. Past Medical History: Past Medical History: Diagnosis Date Coronary artery disease Diabetes mellitus type 2, controlled ([facility]) Hypertension Myocardial infarction ([facility]) Stroke (cerebrum) ([facility]) 06/06/2024 Past Surgical History: Past Surgical History: Procedure Laterality Date CORONARY STENT PLACEMENT X 5 ESOPHAGOGASTRODUODENOSCOPY INSERTION PEG TUBE N/A 06/15/2024 Performed by Ron Love MD at [facility] Insert inferior vena cava filter, all-inclusive N/A 06/24/2024 Performed by Madeline Velasquez MD at [facility] Neuro Invasive N/A 06/06/2024 Performed by Janell Trimble MD at [facility] Stroke Thrombectomy N/A 06/06/2024 Performed by Janell Trimble MD at [facility] Vascular Invasive N/A 06/24/2024 Performed by Madeline Velasquez MD at [facility] VASECTOMY Social and Family [...] Alcohol use: Not Currently Drug use: Not Currently Comment: unknown Sexual activity: Defer Other Topics Concern Not on file Social History Narrative Not on file Social Drivers of Health Financial Resource Strain: Not on file Food Insecurity: No Food Insecurity (01/12/2025) Hunger Screening Food Insecurity - Worry: Never [...] the assessment and plan below. Vitals: BP 118/72 (BP Site: Right Arm, BP Postition: Sitting, BP CUFF SIZE: M (9-13 inches)) Pulse 63 Temp 36.8 C (98.2 F) (Temporal) Ht 172.7 cm (5' 8 ) Wt 81.4 kg (179 lb 6.4 oz) SpO2 98% BMI 27.28 kg/m Body mass index is 27.28 kg/m . Physical Exam: Physical Exam Constitutional: [...] content normal. Judgment: Judgment normal. Recent testing: Assessment and Plan: Problem List Presence of IVC filter Current Assessment & Plan We will get D-dimer. Will get okay from neurology to remove the filter and start him on anticoagulation Prophylactic dose. Ford was seen today for follow-up in 6 months to evaluate for ivc filter retrieval . Diagnoses and all orders for this visit: Deep vein thrombosis (DVT) of femoral vein, unspecified chronicity, unspecified laterality ([facility]) - D-Dimer; Future Presence of IVC filter Nisa Sabillon MD, AYUSH, RPVI, FSVS, FACS [facility] This note was created with the assistance of a speech recognition program. While intending to generate a timely document that accurately reflects the content of the visit, no guarantee can be provided that every grammatical or spelling mistake has been or will be identified or corrected. Thank you for your understanding. documented in this [facility]Tr[facility] History of Present illness Narrative* Janell Trimble MD - 11/30/2024 1:30 PM EST Images from the original note were not included. Stroke Network [address] [facility] [id number] Patient: Ranjeet Medellin Date of : 1955 Encounter Date: 11/30/2024 No care steam cleaner to display Reason for visit: History of Present Illness: Subjective: Ranjeet Medellin is a right handed 69 y.o. male [...] clinic today for routine follow up. Ranjeet Medellin is accompanied in the office by his staff from facility. Patient is alert. Heis able to follow simple commands. He is quite purposeful with his right side. He does have some movement of the left upper extremity. Left arm is quite contracted. He requires feeding tube still fornutrition and medication administration. He requires damaso lift [...] past medical history, past social history, past surgicalhistory and problem list. Review of Systems Review of Systems Constitutional: Negative for decreased appetite, malaise/fatigue, weight gain and weight loss. HENT: Negative for nosebleeds. Eyes: Negative for blurred vision, double vision, vision loss in left eye, vision loss in right eyeand visual disturbance. Cardiovascular: Negative for irregular heartbeat, [...] mental status, depression and memory loss. The patientdoes not have insomnia and is not nervous/anxious. Past Medical History: Diagnosis Date Coronary artery disease Diabetes mellitus type 2, controlled (CMS-HCC) Hypertension Myocardial infarction ([facility]) Stroke (cerebrum) ([facility]) 06/06/2024 No family history on file. Past Surgical History: Procedure Laterality Date CORONARY STENT PLACEMENT X 5 ESOPHAGOGASTRODUODENOSCOPY INSERTION PEG TUBE N/A 06/15/2024 Performed by Ron Love MD at [facility] Insert inferior vena cava filter, all-inclusive N/A 06/24/2024 Performed by Madeline Velasquez MD at [facility] Neuro Invasive N/A 06/06/2024 Performed by Janell Trimble MD at [facility] Stroke Thrombectomy N/A 06/06/2024 Performed by Janell Trimble MD at [facility] Vascular Invasive N/A 06/24/2024 Performed by Madeline Velasquez MD at [facility] VASECTOMY Current Outpatient Medications [...] mouth in the morning and 10 mg/kg beforebedtime. losartan (COZAAR) 100 mg tablet Administer 1 [...] by mouth in the morning and 1 tablet(25 mg total) before bedtime. (Patient not taking: [...] get to or maintain (if cured) 90 (or45) degrees, drifts down to bed, but has some effort against gravity 5b. Motor right arm: 1=Drift, limb holds 90 (or 45) degrees but drifts down before full 10 seconds:does not hit bed 6a. motor left le=No movement 6b Motor right le=Some effort against gravity, limb cannot get to or maintain (if cured) 90 (or45) degrees, drifts down to bed, but has some effort against gravity 7. Limb Ataxia: 0=Absent 8. Sensory: 0=Normal; no sensory loss 9. Best Language: 2=Severe aphasia; all communication is through fragmentary expression; great needfor inference, questioning, and guessing by the listener 10. Dysarthria: 2=Severe; patient speech is so slurred as to be unintelligible in the absence of orour of proportion to any dysphagia, or is [...] Patient Active Problem List Diagnosis Stroke (cerebrum) ([facility]) Dysphagia Acute deep vein thrombosis (DVT) of distal vein of both lower extremities ([facility]) Myocardial infarction ([facility]) Right EMILIA ischemic stroke 2/2 to A2 [...] to be an excellent candidate for botox ofthe left shoulder, elbow wrist. - recommend splinting [...] This note was completed using a voice service unit operator oil well system. Every effort was made to ensure accuracy; however, inadvertent computerized service unit operator oil well errors may be present Patient seen with Dr. Trimble. MARLENE Romeo documented in this encounterWhite [facility]02-19-2025 Instructions* Patient Instructions* MARLENE Moore - 11/30/2024 1:30 PM EST Referral to neurology for seizures and botox Needs aggressive pt/ot/st needs splint left arm. Patient able to do more than what is previously seen. Improved exam from previous. Stroke service no further visits needed. No ac due to spontaneosu bleeding documented in this encounterTr[facility]12-11-2024 Miscellaneous Notes* Telephone Encounter - Gem Luevano RN - 09/21/2024 12:46 PM EST Follow up after event monitor completed. In approx 1 -[address] Trimble. Our office will callto schedule him. Patient wearing MCOT untl 10/15/24. Please schedule follow up with Dr. Trimble. Resides at facility. See if spouse can make it as well. * Telephone Encounter - Rachna Bishop - 09/21/2024 12:46 PM EST Spoke with spouse and scheduled a video appt and she stated she would bring in her lap top Called facility and made MACARIO Barker aware of appt as well documented in this encounterTrinity [facility]12-11-2024 Telephone encounter Note* Telephone Encounter - Gem Luevano RN - 09/21/2024 12:46 PM EST Follow up after event monitor completed. In approx 1 -[address] Trimble. Our office will callto schedule him. Patient wearing MCOT untl 10/15/24. Please schedule follow up with Dr. Trimble. Resides at facility. See if spouse can make it as well. [facility]12-[facility] Telephone encounter Note* Telephone Encounter - Rachna Bishop - 09/21/2024 12:46 PM EST Spoke with spouse and scheduled a video appt and she stated she would bring in her lap top Called facility and made RN Lucero aware of appt as well [facility]12-10-[facility] Telephone encounter Note* Telephone Encounter - Keny Zheng NP - 09/20/2024 10:20 AM EST Requested Prescriptions Signed Prescriptions Disp Refills oxyCODONE-acetaminophen (Percocet) 5-325 MG tablet 120 tablet 0 Sig: Take 1 tablet by mouth every 6 (six) hours Authorizing Provider: KENY ZHENG patient [id number] Miscellaneous Notes* Telephone Encounter - Keny Zheng NP - 09/20/2024 10:20 AM EST Requested Prescriptions Signed Prescriptions Disp Refills oxyCODONE-acetaminophen (Percocet) 5-325 MG tablet 120 tablet 0 Sig: Take 1 tablet by mouth every 6 (six) hours Authorizing Provider: KENY ZHENG patient documented in this encounterSoutheast [facility] [id number] Miscellaneous Notes* Telephone Encounter - Faby Franco - 09/09/2024 9:19 AM EST Patient's spouse called in asking to speak with clinical staff, she did not want to discuss concerns with teletypewriter installer. Best contact [phone] * Telephone Encounter - Awilda Gambino - 09/09/2024 9:19 AM EST Patient spouse Rhonda requesting a call back. Rhonda stated she just wanted to a little report on last office visit because she could not make it and patient AIDE went with patient. Rhonda requesting a call back [phone] * Telephone Encounter - MARLENE Moore - 09/09/2024 9:19 AM EST I can call with the recs but I ended up not seeing patient in clinic. * Telephone Encounter - Jeannette Chun PA-C - 09/09/2024 9:19 AM EST I spoke with spouse on phone. Gave her updates, event monitor negative for afib and will f/u with Dr. Trimble in nov 30. She did take him to the park interpretive ranger and he did have basal cell carcinoma on his nare. documented in this encounterTrinity [facility]11-29-2024 Telephone encounter Note* Telephone Encounter - Faby Franco - 09/09/2024 9:19 AM EST Patient's spouse called in asking to speak with clinical staff, she did not want to discuss concerns with teletypewriter installer. Best contact [phone] [facility] [id number] Telephone encounter Note* Telephone Encounter - Awilda Gambino - 09/09/2024 9:19 AM EST Patient spouse Rhonda requesting a call back. Rhonda stated she just wanted to a little report on last office visit because she could not make it and patient AIDE went with patient. Rhonda requesting a call back [phone] [facility] [id number] Telephone encounter Note* Telephone Encounter - MARLENE Moore - 09/09/2024 9:19 AM EST I can call with the recs but I ended up not seeing patient in clinic. [employer] Work Phone: [phone] Telephone encounter Note* Telephone Encounter - Jeannette Chun PA-C - 09/09/2024 9:19 AM EST I spoke with spouse on phone. Gave her updates, event monitor negative for afib and will f/u with Dr. Trimble in nov 30. She did take him to the park interpretive ranger and he did have basal cell carcinoma on his nare. [facility]11-27-2024 History of Present illness Narrative* Janell Trimble MD - 09/07/2024 2:00 PM EST Images from the original note were not included. Stroke Network [address] [facility] [address] Patient: Ranjeet Medellin Date of : 1955 Encounter Date: 09/07/2024 No care steam cleaner to display Reason for visit: Hospital follow up History of Present Illness: Subjective: Ranjeet Medellin is a right handed 69 y.o. male with past medical history significant for T2Dm, CAD, Hx of DE, Hx of prior ischemic CVA x 2 being evaluated in clinic today for hospital follow upfor right EMILIA ischemic stroke 2/2 to right A2 occlusion with partial thrombus in proximal A2. His ho spitalization was complicated by aspiration pneumonia, dysphagia requiring PEG tube placement, extensive b/l DVT. He was placed on anticoagulation for his DVT and unfortunately suffered a hemorrhagicbleed in the right parietal lobe. Ford subsequently [...] himself. He is mostly wheelchair and bedbound. ADMITTING CLERK note per facility notes some progress with saying some words here and there. Patient yelitza was able to write the word yes and did also try to write some words. Ranjeet Medellin is accompanied in the office by his facility patient aide. Past Medical, Family, Surgical, and Social History Update: The following portions of the patient's history were reviewed and updated as appropriate: allergies, current medications, past family history, past medical history, past social history, past surgicalhistory and problem list. Review of Systems Review of Systems Unable to perform ROS: Other Severe aphasia Past Medical History: Diagnosis Date Coronary artery disease Diabetes mellitus type 2, controlled ([facility]) Hypertension Myocardial infarction ([facility]) Stroke (cerebrum) ([facility]) 06/06/2024 History reviewed. No pertinent family history. Past Surgical History: Procedure Laterality Date CORONARY STENT PLACEMENT X 5 ESOPHAGOGASTRODUODENOSCOPY INSERTION PEG TUBE N/A 06/15/2024 Performed by Rno Love MD at [facility] Insert inferior vena cava filter, all-inclusive N/A 06/24/2024 Performed by Madeline Velasquez MD at [facility] Neuro Invasive N/A 06/06/2024 Performed by Janell Trimble MD at [facility] Stroke Thrombectomy N/A 06/06/2024 Performed by Janell Trimble MD at [facility] Vascular Invasive N/A 06/24/2024 Performed by Madeline Velasquez MD at [facility] VASECTOMY Current Outpatient Medications [...] by mouth in the morning and 1 tablet(25 mg total) before bedtime. (Patient not taking: [...] all communication is through fragmentary expression; great needfor inference, questioning, and guessing by the listener 10. Dysarthria: 2=Severe; patient speech is so slurred as to be unintelligible in the absence of orour of proportion to any dysphagia, or is [...] be arranged by our office. - Continue PT/OT/ADMITTING CLERK - We will have patient come back [...] This note was completed using a voice service unit operator oil well system. Every effort was made to ensure accuracy; however, inadvertent computerized service unit operator oil well errors may be present Addendum: to complete note assessment/plan and document iadls. Patient seen by Dr. Trimble in clinic and provided MDM. Jeannette Chun PA-C assisted with documentation of this note. Jeannette Chun PA-C 09/07/241723 documented in this encounterTr[facility]11-27-2024 History of Present illness Narrative* Nancy Quinn RN - 09/07/2024 2:00 PM EST Met with pt for the 90 day follow up for the [employer] [facility] study. Pt still living in facility. Facility notes state he is doing a little better. See JEAN note for further information. Thisis the final study visit. Thanked pt for his participation. documented in this [facility]11-27-2024 Instructions* Patient Instructions* Jeannette Chun PA-C - 09/07/2024 2:00 PM EST Follow up after event monitor completed. In approx 1 -[address] Trimble. Our office will callto schedule him. Please have someone schedule him for a dermatology visit for the lesion below his right nare Continue PT and OT, ADMITTING CLERK He can start on 81 mg aspirin daily for secondary stroke prevention documented in this [facility]11-03-2024 Telephone encounter Note* Telephone Encounter - Keny Zheng NP - 08/14/2024 5:20 PM EST Rx for percocet is sent for this [facility] patient. [facility] [id number] Miscellaneous Notes* Telephone Encounter - Keny Zheng NP - 08/14/2024 5:20 PM EST Rx for percocet is sent for this [facility] patient. documented in this encounterSoutheast [facility] HospitalIjkoudyrkr75-11-1932 Telephone encounter Note* Telephone Encounter - Keny Zheng NP - 08/11/2024 5:07 PM EDT Rx for handicap placard is given to the patient's today. He is a Pt at [facility]. [facility] [id number] Miscellaneous Notes* Telephone Encounter - Keny Zheng NP - 08/11/2024 5:07 PM EDT Rx for handicap placard is given to the patient's today. He is a Pt at [facility]. documented in this encounterSoutheast [facility] [id number] Evaluation + Plan note* Assessment & Plan Note - Nisa Sabillon MD - 07/14/2024 9:08 AM EDT Associated Problem(s): Stroke (cerebrum) ([facility]) No evidence of carotid stenosis. This seems to be cardioembolic and hemorrhagic. Continue follow-upwith neurology cardiology and continue rehab [facility] Evaluation + Plan note* Assessment & Plan Note - Nisa Sabillon MD - 07/14/2024 9:08 AM EDTAssociated Problem(s): Acute deep vein thrombosis (DVT) of distal vein of both lower extremities ([facility]) Compression stockings leg elevation follow-up in 6 months to evaluate for IVC filter retrieval. Currently he can be on blood thinners and he has acute DVT and he has an IVC filter. [facility]10-03-[facility] Miscellaneous Notes* Assessment & Plan Note - Nisa Sabillon MD - 07/14/2024 9:08 AM EDTAssociated Problem(s): Stroke (cerebrum) ([facility]) No evidence of carotid stenosis. This seems to be cardioembolic and hemorrhagic. Continue follow-upwith neurology cardiology and continue rehab * Assessment & Plan Note - Nisa Sabillon MD - 07/14/2024 9:08 AM EDT Associated Problem(s): Acute deep vein thrombosis (DVT) of distal vein of both lower extremities ([facility]) Compression stockings leg elevation follow-up in 6 months to evaluate for IVC filter retrieval. Currently he can be on blood thinners and he has acute DVT and he has an IVC filter. documented in this encounterTr[facility]10-03-2024 History of Present illness Narrative* Nisa Sabillon MD - 07/14/2024 8:30 AM EDT Images from the original note were not included. To: Raina Garcia, ASSEMBLER [employer] HPI: Ranjeet Medellin is a 68 y.o. male with With a stroke cardioembolic and hemorrhagic conversionhad a DVT and IVC filter placement in [...] by mouth in the morning and 1 tablet(25 mg total) before bedtime. traZODone (DESYREL) 50 mg tablet Take 1 tablet (50 mg total) by mouth nightly. No current facility-administered medications on file prior to visit. Past Medical History: Past Medical History: Diagnosis Date Coronary artery disease Diabetes mellitus type 2, controlled (CMS-HCC) Hypertension Myocardial infarction ([facility]) Stroke (cerebrum) ([facility]) 06/06/2024 Past Surgical History: Past Surgical History: Procedure Laterality Date CORONARY STENT PLACEMENT X 5 ESOPHAGOGASTRODUODENOSCOPY INSERTION PEG TUBE N/A 06/15/2024 Performed by Ron Love MD at [facility] Insert inferior vena cava filter, all-inclusive N/A 06/24/2024 Performed by Madeline Velasquez MD at [facility] Neuro Invasive N/A 06/06/2024 Performed by Janell Trimble MD at [facility] Stroke Thrombectomy N/A 06/06/2024 Performed by Janell Trimble MD at [facility] Vascular Invasive N/A 06/24/2024 Performed by Madeline Velasquez MD at [facility] VASECTOMY Social and Family [...] Assessment and Plan: Problem List Stroke (cerebrum) ([facility]) Current Assessment & Plan No evidence of carotid stenosis. This seems to be cardioembolic and hemorrhagic. Continue follow-upwith neurology cardiology and continue rehab Acute deep vein thrombosis (DVT) of distal vein of both lower extremities ([facility]) - Primary Current Assessment & Plan Compression [...] of distal vein of both lower extremities ([facility]) 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 ([facility]) Nisa Sabillon MD, AYUSH, RPVI, FSVS, FACS [facility] This note was created with the assistance of a speech recognition program. While intending to generate a timely document that accurately reflects the content of the visit, no guarantee can be provided that every grammatical or spelling mistake has been or will be identified or corrected. Thank you for your understanding. documented in this encounterTr[facility]09-23-2024 Miscellaneous Notes* Telephone Encounter - Gem Luevano RN - 07/04/2024 10:58 AM EDT ----- Message from CYNDY Chun PA-C sent at 07/01/2024 3:37 PM EDT ----- Regarding: TTH f/u EMILIA occlusion s/p MT, can not rule out cardiac origin, needs 30 day event monitor. F/u Nai 4-6 weeks. Patient mute and going to SNF, may need to arrange with family/facility. * Telephone Encounter - Rachna Bishop - 07/04/2024 10:58 AM EDT Spoke with spouse who stated patient is currently at [facility] and was transferred to the network pricing [facility] and rescheduled appt documented in this [facility]09-23-2024 Telephone encounter Note* Telephone Encounter - Gem Luevano RN - 07/04/2024 10:58 AM EDT ----- Message from CYNDY Chun PA-C sent at 07/01/2024 3:37 PM EDT ----- Regarding: TTH f/u EMILIA occlusion s/p MT, can not rule out cardiac origin, needs 30 day event monitor. F/u Nai 4-6 weeks. Patient mute and going to SNF, may need to arrange with family/facility. [facility]09-23-2024 Telephone encounter Note* Telephone Encounter - Rachna Bishop - 07/04/2024 10:58 AM EDT Spoke with spouse who stated patient is currently at [facility] facility and was transferred to the network [facility]cheduled appt [facility]09-22-2024 History of Present illness Narrative* Jeannette Chun PA-C - 07/03/2024 5:10 PM EDT Skin lesion of the nose concerning for possible cancer. Dr. Ross requested Dermatology referral. Will send and discuss with patient spouse. Jeannette Chun PA-C 07/03/24 1719 documented [facility] Miscellaneous Notes* Telephone Encounter - Katie Ricketts - 06/30/2024 9:24 PM EDT Contract: [id number] Gem @[facility] called regarding previous peg placement * Telephone Encounter - Katie Ricketts - 06/30/2024 9:24 PM EDT [id number] I numerically paged General Surgery to [facility] documented in [facility] encounterTr[facility] Telephone encounter Note* Telephone Encounter - Katie Ricketts - 06/30/2024 9:24 PM EDT Contract: 132A Gem @[facility] called regarding previous peg placement [facility]09-19-2024 Telephone encounter Note* Telephone Encounter - Katie Ricketts - 06/30/2024 9:24 PM EDT [id number] I numerically paged General Surgery to Gem @[facility]09-17-2024 Miscellaneous Notes* Telephone Encounter - Krystle Becker - 06/28/2024 6:12 AM EDT Contract: PERRI Hollins at [facility] [phone] New Consult Rm [id number] Blood Sugar 88 Scheduled 28 Units of Humalog * Telephone Encounter - Krystle Becker - 06/28/2024 6:12 AM EDT Contract: PERRI Hollins at [facility] [phone] New Consult Rm [id number] Blood Sugar 88 Scheduled 28 Units of Humalog L. MD Lay [phone] [facility] documented in this encounterTr[facility] Telephone encounter Note* Telephone Encounter - Krystle Becker - 06/28/2024 6:12 AM EDT Contract: PERRI Hollins at [facility] [phone] New Consult Rm [id number] Blood Sugar 88 Scheduled 28 Units of Humalog [facility]09-17-2024 Telephone encounter Note* Telephone Encounter - Krystle Becker - 06/28/2024 6:12 AM EDT Contract: PERRI Hollins at [facility] [phone] New Consult Rm [id number] Blood Sugar 88 Scheduled 28 Units of Humalog Abdulaziz. MD Lay [phone] [facility]09-12-2024 History of Present illness Narrative* Osmar Mayer, [facility] - 06/23/2024 9:28 AM EDT [facility] received a new referral from Dr. Viveros on 06/23/2024 The information below is outlined from the referral: Demographics Ranjeet Medellin 1955 male [facility] clinic location / home health agency: [facility] Anticoagulation Details Indication: DVT, CVA Severe thrombophilia: [...] reflect warfarin tablet strength prescribed and current dosinginstructions. The patient education checklist will be discussed in depth during the initial debx-os-qxnr visit with a [facility] clinical pharmacist and/or during the initial phone call during home health. Pertinent information: New referral from [facility] Vascular. Patient currently admitted. Patient admitted on [...] tube being placed so patient is being startedon warfarin instead of Eliquis. Will continue to monitor admission and contact once discharged. It appears patient will be going toSNF at discharge. Osmar Mayer, [facility] 06/23/24 0939 documented in this encounterTr[facility]-2024 Miscellaneous Notes* Telephone Encounter - Astrid Jordan CMA - 06/11/2024 4:03 PM EDT Contract: [id number] . [phone] [facility] Nanette called with a new consult for peg tube placement. thanks francisco Resendiz documented in this encounterTr[facility]-2024 Telephone encounter Note* Telephone Encounter - Astrid Jordan CMA - 06/11/2024 4:03 PM EDT Contract: [id number] . [phone] [facility] Nanette called with a new consult for peg tube placement. thanks francisco Resendiz [facility]08-26-2024 History of Present illness Narrative* Nancy Quinn RN - 06/06/2024 4:10 PM EDT Reviewed chart for possible inclusion into the [employer] study. Dr. Kessler speaks briefly with about study. Called to discuss purpose, risks/benefits of study. Informed consent form faxed to [facility]. reviews form with measurement coordinator. All questions answered. agreeable to enroll pt into study. Informed consent form signed/dated/timed by and witnessed by hospital personnel. Consent pages faxed back to measurement coordinator who also signed/dated/timed consent form. No study procedures done prior to consent being signed. Pt fits inclusion/exclusion criteria after arrival to [facility]. Study drug given per protocol The RAISE study examines the safety and efficacy of BB-031 ( inhibits von Willebrand Factor ). Physician Practice Market Manager - Dr. Trimble Study Coordinators : Nancy Quinn RN and Otf Wood RN [phone] documented in this encounterSelect Medical Specialty [facility], IncCalysta Energy [facility] [id number] Miscellaneous Notes* Telephone Encounter - Stephanie Goins - 06/02/2024 9:41 AM EDT Patients called inquiring about your accepting him as a patient. New patients are opened back up for July. His is a current patient of yours. We dont have much history in his chart. It sounds like he will need to see you for DM care and help getting set with a field servicer. Let us knowif you will take him and we can get him booked in July. * Telephone Encounter - MARLENE Lawrence - 06/02/2024 9:41 AM EDT That is fine. When we are accepting again, put him on the schedule * Telephone Encounter - Stephanie Goins - 06/02/2024 9:41 AM EDT Patient notified and scheduled 08/01/24 documented in this encounterSelect Medical Special[facility], IncCalysta Energy [facility] [id number] Telephone encounter Note* Telephone Encounter - Stephanie Goins - 06/02/2024 9:41 AM EDT Patients called inquiring about your accepting him as a patient. New patients are opened back up for July. His is a current patient of yours. We dont have much history in his chart. It sounds like he will need to see you for DM care and help getting set with a field servicer. Let us knowif you will take him and we can get him booked in July. [facility] [phone] Telephone encounter Note* Telephone Encounter - MARLENE Lawrence - 06/02/2024 9:41 AM EDT That is fine. When we are accepting again, put him on the schedule [employer] [facility] Work Phone: [phone] Telephone encounter Note* Telephone Encounter - Stephanie Goins - 06/02/2024 9:41 AM EDT Patient notified and scheduled 08/01/24 [facility] SystemEvaluation note* Diagnosis Cerebrovascular accident (CVA), unspecified mechanism (CMS/HCC)- Primary documented in this encounter [facility] HealthcareEvaluation note* Diagnosis Pain- Primary Generalized pain documented in this encounter [facility] HealthcareEvaluation note* Diagnosis Acute deep vein thrombosis (DVT) of distal vein of both lower extremities (CMS-HCC)- Primary 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 (CMS-HCC) documented in this encounter [facility] SystemEvaluation note* Diagnosis Acute deep vein thrombosis (DVT) of distal vein of both lower extremities (CMS-HCC)- Primary [facility]* Diagnosis Lesion of skin of nose- Primary [facility]* Diagnosis Acute deep vein thrombosis (DVT) of distal vein of both lower extremities (CMS-HCC)- Primary 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 (CMS-HCC) Hx of ischemic right EMILIA stroke- Primary documented in this encounter [facility]* Diagnosis Acute deep vein thrombosis (DVT) of distal vein of both lower extremities (CMS-HCC)- Primary 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 (CMS-HCC) 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 (CMS-HCC)- Primary Other cerebrovascular vasospasm and vasoconstriction documented in this encounter [facility] SystemEvaluation note* Diagnosis Acute deep vein thrombosis (DVT) of distal vein of both lower extremities (CMS-HCC)- Primary 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 (CMS-HCC) 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)- Primary Weakness as late effect of cerebrovascular accident (CVA) Seizure-like activity (CMS-HCC) documented in this encounter [facility] SystemEvaluation note* Diagnosis Acute deep vein thrombosis (DVT) of distal vein of both lower extremities (CMS-HCC)- Primary 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 (CMS-HCC) Deep vein thrombosis (DVT) of femoral vein, unspecified chronicity, unspecified laterality (CMS-HCC)- Primary Presence of IVC filter documented in this encounter [facility]* Diagnosis Cerebral infarction due to occlusion of right anterior cerebral artery (CMS/HCC) - Primary Nontraumatic cortical hemorrhage of right cerebral hemisphere (CMS/HCC) Left spastic hemiparesis (CMS/HCC) Spastic hemiplegia affecting unspecified side Seizure-like activity (CMS/HCC) Aphasia Dysphagia, unspecified type Deep vein thrombosis (DVT) of proximal vein of both lower extremities, unspecified chronicity (CMS/HCC) documented in this encounter [facility] HealthcareEvaluation note* Diagnosis Cerebral infarction due to occlusion of right anterior cerebral artery (CMS/HCC) - Primary Nontraumatic cortical hemorrhage of right cerebral hemisphere (CMS/HCC) Left spastic hemiparesis (CMS/HCC) Spastic hemiplegia affecting unspecified side Seizure-like activity (CMS/HCC) Aphasia Dysphagia, unspecified type Deep vein thrombosis (DVT) of proximal vein of both lower extremities, unspecified chronicity (CMS/HCC) documented in this encounter [facility] HealthcareEvaluation note* Diagnosis Onset Date Resolution Status Admit Date Muscle cramping acuteJuly 2024 9:48amSeizuresnoneactiveJuly 2024 9:48am Cerebrovascular accident (CVA)noneactiveJuly 2024 9:48am [facility] Work Phone: InstructionsNot on filedocumented in this encounter [facility] [...] Health SystemInstructionsNot on filedocumented in this encounter [facility] CampusInstructionsNot on filedocumented in this encounter [facility] CampusReason for referral (narrative)* Consultation (Routine) - Pending ReviewSpecialtyDiagnoses / ProceduresReferred By ContactReferred To ContactDermatology Diagnoses Lesion of skin of nose Jeannette Chun PA-C [address] [place] [address] Sacha Henao, DO [address] [place] [address] Referral IDStatusReasonStart DateExpiration DateVisits RequestedVisits [id number] Review Specialty Services Required / [facility] [employer] [facility] Summary Purpose Family History Relationship Condition Age at Onset Recorded Date/T qamar Not Specified Patient unable to pr ovide medical history Unknown fatherMyocardial infarctionUnknownDiabetes mellitusUnknownmotherMyocardial infarctionUnknown Advance Directives Date ActivatedDate InactivatedComments06/07/2024 8:12 AM07/01/2024 6:54 PMDate ActivatedDate InactivatedComments06/07/2024 8:12 AMDate ActivatedDate Inactivated Comments06/07/2024 8:12 AM07/01/2024 6:54 PM Advance Directive Response Recorded Date/ Time Advance Directives No March 14 12:01pm Chief Complaint and Reason for Visit Chief Complaint Admit Date 8 Week Follow up May 08, 2025 9:48 am Reason for Visit Admit Date Aphasia May 08, 2025 9:48 am DVT (deep venous thrombosis) May 08, 2025 9:48am Left spastic hemiparesis May 08, 2025 9:48am Muscle cramping May 08, 2025 9:48 am Nontraumatic cortical hemorrhage of righ t cerebral hemisphere May 08, 2025 9:48am Seizure-like activity May 08, 2025 9: 48am Cerebrovascular accident (CVA) April 9:48am Chief Complaint Admit Date 8 Week Follow up May 08, 2025 9:48 am Reason for Visit Admit Date Muscle cramping May 08, 2025 9:48 am Seizures May 08, 2025 9:48 am Cerebrovascular accident (CVA) April 9:48am Reason for Visit Admit Date Aphasia May 08, 2025 9:48 am DVT (deep venous thrombosis) May 08, 2025 9:48am Left spastic hemiparesis May 08, 2025 9:48am Muscle cramping May 08, 2025 9:48 am Nontraumatic cortical hemorrhage of righ t cerebral hemisphere May 08, 2025 9:48am Seizure-like activity May 08, 2025 9: 48am Cerebrovascular accident (CVA) April 9:48am Additional Source Comments (unrecognized sect ion and content) No Status Records FoundNo Status Records FoundNo Status Records FoundNo Status Records FoundNo Status Records FoundNo Status Records FoundNo Status Records FoundNo Status Records Found INFORMATION SOURCE (unrecogn ized section and content) DATE CREATED AUTHOR 06/12/2024 [facility] DATE CREATED AUTHOR AUTHOR'S ORGANIZ ATION 07/22/2024 [facility] DATE CREATED AUTHOR AUTHOR'S ORGANIZ ATION 10/24/2024 [facility] DATE CREATED AUTHOR AUTHOR'S ORGANIZ ATION 01/05/2025 [facility] DATE CREATED AUTHOR AUTHOR'S ORGANIZ ATION 01/15/2025 [facility] DATE CREATED AUTHOR AUTHOR'S ORGANIZ ATION 02/02/2025 [facility] DATE CREATED AUTHOR AUTHOR'S ORGANIZ ATION 02/18/2025 [facility] DATE CREATED AUTHOR AUTHOR'S ORGANIZ ATION 04/25/2025 [facility] Reason for Visit (unrecogniz ed section and content) ReasonOnset HkqnDqpytohjyhbkcsfu78/29/2024ReasonOnset DateCommentsConsult 06/11/2024EG tube mzbqbldyy69/31/2024ReasonCommentsBLE DVT in the setting of stroke with mechanical thrombectoReasonOnset DateCommentsBlood Sugar 88 Scheduled Units of Zuhvsww47/17/2024ReasonOnset DateCommentsprevious peg /19/2024ReasonCommentsfollow-up in 6 months to evaluate for IVC filter retrievalReasonCommentsseizure-like activitySpecialtyDiagnoses / ProceduresReferred By ContactReferred To ContactNeurology Diagnoses Seizure-like activity (CMS/HCC) Procedures [place] OFFICE/OUTPATIENT NEW LOW MDM 30 MINUTES 133 ([email or web address]) - Ambulatory referral to Neurology (Non-[facility]) Maryse Huff MD Phone: tel: fax: Luis M Dao [address] [place] [address] Phone: tel: fax: Referral IDStatusReasonStart DateExpiration DateVisits RequestedVisits [id number] Consult and Treat [id number] Care Teams (unrecognized sec tion and content) Team MemberRelationshipSpecialtyStart DateEnd Date Sayra Bermudez, ASSEMBLER [facility] [address] [place] [address] PCP - GeneralFamily Medicine06/09/22Team MemberRelationshipSpecialtyStart DateEnd Date Raina Garcia, ASSEMBLER [facility] [address] [place] [address] PCP - GeneralFamily Medicine06/06/24Team MemberRelationshipSpecialtyStart DateEnd Date Raina Garcia, ASSEMBLER [facility] [address] [place] [address] PCP - GeneralFamily Medicine06/06/24Team MemberRelationshipSpecialtyStart DateEnd Date Raina Garcia, ASSEMBLER [facility] [address] [place] [address] PCP - GeneralFamily Medicine06/06/24Team MemberRelationshipSpecialtyStart DateEnd Date Raina Garcia, ASSEMBLER [facility] [address] [place] [address] PCP - GeneralFamily Medicine06/06/24Team MemberRelationshipSpecialtyStart DateEnd Date Raina Garcia, ASSEMBLER [facility] [address] [place] [address] PCP - GeneralFamily Medicine06/06/24Team MemberRelationshipSpecialtyStart DateEnd Date Raina Garcia, ASSEMBLER [facility] [employer] [facility] [address] [place] [address] PCP - GeneralFamily Medicine06/06/24Team MemberRelationshipSpecialtyStart DateEnd Date Raina Garcia, ASSEMBLER [facility] [address] [place] [address] PCP - GeneralFamily Medicine06/06/24Team MemberRelationshipSpecialtyStart DateEnd Date Raina Garcia, ASSEMBLER [facility] [address] [place] [address] PCP - GeneralFamily Medicine06/06/24Team MemberRelationshipSpecialtyStart DateEnd Date Za Alcala MD [address] [place] [address] [facility] - [facility]/25 Luis M Dao DO [address] [place] [address] Referring PhysicianNeurology01/12/25Team MemberRelationshipSpecialtyStart DateEnd Date Za Alcala MD [address] [place] [address] PCP - [facility] Medicine01/12/25 Luis M Dao DO [address] [place] [address] Referring PhysicianNeurology01/12/25Team MemberRelationshipSpecialtyStart DateEnd Date Luis M Dao DO [address] [place] [address] Referring PhysicianNeurology01/12/25Team MemberRelationshipSpecialtyStart DateEnd Date Luis M Dao DO [address] [place] [address] Referring PhysicianNeurology01/12/25 Team Status: Active Member Role Status Dates Za Alcala MD Primary Care Provider Active Team Status: Inactive Member Role Status Dates Ariane Estevez APRN Attending Provider Active Start: May 08, 2025 End: May 08, 2025Jose Faulknerandalusia healthamira Care ProviderActiveStart: May 08, 2025 End: May 08, 2025 Team Status: Inactive Member Role Status Dates Za Alcala MD Primary Care Provider Active S tart: June 15, 2025 End: June 15, 2025Aracelis Nassar ProviderActiveStart: June 15, 2025 End: June 15, 2025 Goals (unrecognized section and content) Goals may be documented in a n alternate section FOR RECORDS PERTAINING TO PATIENTS WHO ARE [...] BE BASED ON THE PRIMARY CLINICAL RECORDS. [facility] [employer] provides no warranty or guarantee of the accuracy or completeness of information in this document.
[2025-09-13 13:05] LABS: Potassium 5.0 mmol/L (3.5-5.1)
== END 2025-09-13 12:44 | disposition home or self-care (01) ==
LOC: LAB 12:43
PROVIDERS: PCP Family Medicine; Visit Provider Family Medicine
DX: E87.5 Hyperkalemia (principal)
CPT/HCPCS: 36415; 84132